=== PATIENT | male | born 1955 | race African-American/Black ===

== ENCOUNTER 2020-11-21 15:53 | Emergency (ER) | payer MEDICARE, MEDICAID, SELFPAY ==
--- NOTE | ~2020-11-21 | CT_ITS ---
EXAMINATION: CTA chest PE protocol EXAM DATE: 11/21/2020 17:28 INDICATION: Right-sided chest pain, elevated D-dimer. TECHNIQUE: Spiral CTA of the chest (pulmonary arteries) was performed with 100 cc Omnipaque 350 intr avenous contrast injection. Images were acquired during the pulmonary arterial phase. Coronal maxi mum intensity projection 3D-reconstructions were created by the technologist on dedicated workstation . Axial, coronal and sagittal reformatted images were reviewed. The dose-length product (DLP) for t his examination was 495.54 mGy-cm. The exposure was tailored according to patient size (auto mA exp osure control), and iterative reconstruction (ASIR) was used as additional dose reduction technique. Comparison is made to prior examination from 01/06/2017. FINDINGS: There are no pulmonary emboli in the 1st through 3rd order (central and interlobar) pulmon sabino arteries. Some loss of attenuation in the segmental pulmonary arteries due to respiratory motion , but no intraluminal filling defects suspected. No thoracic aortic dissection. There is a 6 mm no dule best seen on coronal sequence in the right middle lobe just below the minor fissure, indetermina te. This was not present on prior study. There is mild to moderate emphysema. Some scattered regions of bibasilar subsegmental atelectasis. There are no pleural or pericardial effusions. Tracheobronc hial tree is patent. There is no mediastinal, hilar or axillary lymphadenopathy. There is no pneu mothorax. Heart normal in size. There is mild coronary arterial calcification, arterial sclerosis . Upper abdomen is unremarkable. There is thoracic spondylosis without osteoblastic or osteolytic lesions identified. IMPRESSION: 1. Small right middle lobe nodule, indeterminate. Recommend 3 month follow-up chest CT. 2. Scattered linear basilar atelectasis. 3. Mild to moderate emphysema. 4. No acute findings.. Reviewed, dictated and finalized at location A.
[2020-11-21 15:55] VITALS: BP 138/98; PULSE 96; RESP 16; TEMP 36.9; O2SAT 97
--- NOTE | 2020-11-21 15:57 | ECG_ITS ---
Measurements Intervals [place] Rate: 96 P: 62 RI: 181 QRS: 123 QRSD: 93 T: 50 QT: 333 QTc: 421 Interpretive Statements SINUS RHYTHM RIGHT AXIS DEVIATION BORDERLINE R WAVE PROGRESSION, ANTERIOR LEADS MINIMAL Q WAVES- INFERIOR LEADS ST ELEVATION IN ANTEROLAT/HIGH LAT LEADS- PROBABLY EARLY REPOLARIZATION ABNORMALITY BORDERLINE ECG Electronically Signed On 11-21-2020 19:05:27 CDT by Vishal Cardona D.O.
--- NOTE | 2020-11-21 16:07 | ED.CHESTPAIN ---
HPI - Chest Pain General Chief Complaint: Extremity Problem,Nontraumatic Stated Complaint: R Shoulder Pain Time Seen by Provider: 11/21/20 16:07 Source: patient Mode of arrival: ambulatory Limitations: no limitations History of Present Illness HPI narrative: Patient is a 65-year-old male complaining of right-sided chest pain and right shoulder pain x1 week. Patient's right shoulder pain is a 6 out of 10, worse with movement. Patient's chest pain is right-sided, worse with palpation and movement. Patient denies any shortness of breath, abdominal pain, nausea, vomiting, diaphoresis, fever or chills. Patient denies any injury to the area. Related Data Allergies Allergy/AdvReac Type Severity Reaction Status Date / Time No Known Allergies Allergy Verified 08/03/16 17:00 Review of Systems Review of Systems: All systems reviewed & are unremarkable except as noted in HPI and below Constitutional: Constitutional: Denies body ache(s), Denies chills, Denies excessive sweating, Denies fatigue, Denies fever(s), Denies headache(s), Denies lethargy, Denies malaise, Denies weakness and Denies weight loss Eyes: Eyes: Denies blurry vision, Denies change in vision and Denies loss of vision ENT: Denies dizziness, Denies ear discharge, Denies headache(s), Denies lip swelling, Denies epistaxis, Denies nasal congestion, Denies neck pain, Denies throat swelling and Denies tongue swelling Cardiovascular: Cardiovascular: Denies diaphoresis, Denies rapid heart rate, Denies edema, Denies irregular heart rhythm, Denies lightheadedness, Denies palpitations, Denies dyspnea and Denies dyspnea on exertion Respiratory: Respiratory: Denies chest congestion, Denies cough, Denies hemoptysis, Denies dyspnea and Denies dyspnea on exertion Gastrointestinal: Gastrointestinal: Denies abdominal pain, Denies melena, Denies hematochezia, Denies diarrhea, Denies nausea, Denies vomiting and Denies hematemesis Musculoskeletal: Musculoskeletal: Denies abnormal gait, Denies deformity, Denies joint swelling, Denies limited range of motion, Denies neck pain and Denies numbness Neurologic: Denies Abnormal speech present, Denies abnormal gait, Denies confusion, Denies dizziness, Denies headache(s), Denies focal weakness, Denies loss of vision, Denies numbness, Denies Other visual disturbances, Denies Sensory deficit (Neuro) and Denies weakness Psychiatric: Psychiatric: Denies confusion, Denies depression, Denies auditory hallucinations, Denies homicidal ideation and Denies suicidal ideation Endocrine: Endocrine: Denies cold intolerance, Denies excessive sweating, Denies fatigue, Denies heat intolerance and Denies palpitations Hematologic/Lymphatic: Hematologic/Lymphatic: Denies easy bleeding and Denies easy bruising Allergic/Immunologic: Allergic/Immunologic: Denies lip swelling, Denies throat swelling and Denies tongue swelling Exam Const: General: cooperative, healthy appearing, comfortable, no acute distress, well developed, alert and awake; No confusion Orientation/consciousness: oriented to person, oriented to place, oriented to time, patient oriented x3 and No confusion Limitations: no limitations HENMT: Head: normal to inspection, normocephalic and atraumatic Ears: hearing grossly normal bilaterally, TM normal on the right and TM normal on the left General nose exam: Normal external nose present, Normal nares present and No nasal discharge present Face and sinus: normal facial exam Mouth: Yes Normal oral and palatal mucosa present, Yes lip normal, Yes tongue normal and Yes oropharynx normal Throat: posterior oropharynx normal, tonsils normal and uvula midline Eyes: General: appearance normal, both eyes and all related structures Pupils: Equal, round and reactive pupils present EOM: EOMs intact bilaterally Neck: Neck: normal visual inspection, full ROM, no lymphadenopathy and no meningeal signs Chest: Chest palpation & inspection: normal inspection of the chest Other: Maximus
[2020-11-21 16:25] LABS: Basophils Percent Auto 0.2 % (0.2-1.2); Eosinophils Percent Auto 0.5 % (0-4.4); Hematocrit 46.3 % (42.0-52.0); Hemoglobin 15.2 g/dL (14.0-18.0); Immature Granulocyte Absolute 0.04 K/mm3 (0.00-0.031); Immature Granulocyte Percent A 0.6 % (0-0.5); Lymphocytes Absolute Auto 1.05 K/mm3 (0.9-3.2); Lymphocytes Percent Auto 16.8 % (18.3-44.2); Mean Corpuscular HGB Conc 32.8 g/dl (32-36); Mean Corpuscular Volume 94.3 fl (80-100); Mean Platelet Volume 9.9 fl (7.4-10.4); Monocytes Absolute Auto 0.5 K/mm3 (0.1-0.6); Monocytes Percent Auto 8.5 % (2.6-8.5); Neutrophils Absolute Auto 4.6 K/mm3 (1.3-6.7); Neutrophils Percent Auto 73.4 % (45.5-73.1); Platelet Count Result 172 k/mm3 (150-375); Red Blood Count 4.91 M/mm3 (4.6-6.20); Red Cell Distribution Width 14.4 % (11.5-14.5); White Blood Count 6.2 K/mm3 (4.5-10.0)
[2020-11-21 16:34] LABS: INR 0.9; Prothrombin Time 12.5 Seconds (11.1-14.7)
[2020-11-21 16:35] LABS: Partial Thromboplastin Time 26.7 SECONDS (22.3-36.8)
[2020-11-21 16:38] LABS: Anion Gap 9 mmol/L (8-16); Blood Urea Nitrogen 17 mg/dL (9-20); Calcium 9.7 mg/dL (8.4-10.2); Carbon Dioxide 25 mmol/L (22-30); Chloride 105 mmol/L (98-107); Creatine Kinase 473 U/L (55-170); D Dimer 2.53 ug/mL (<0.48); Estimated CRCL calculation 40 ml/min; Estimated Glomerular Filt Rate 43; Glucose 107 mg/dL (75-110); Potassium 4.4 mmol/L (3.4-5.0); Sodium 139 mmol/L (137-145)
[2020-11-21 16:49] LABS: Troponin I < 0.012 ng/mL (0.000-0.034)
[2020-11-21] MEDS: SODIUM CHLORIDE 0.9% IV 1,000 ML 999 ML IV CONT (18:56)
[2020-11-21 19:57] VITALS: BP 139/84; PULSE 89; RESP 16; O2SAT 98
--- NOTE | 2020-11-29 18:56 | PC.NURSE ---
1000ml of fluids infused. Infusion finished at 1999 on 11/21/20
== END 2020-11-21 19:59 | disposition home or self-care (01) ==
PROVIDERS: Emergency Provider Emergency Medicine
DX: R07.89 Other chest pain (principal); M25.511 Pain in right shoulder; R94.31 Abnormal electrocardiogram [ECG] [EKG]
CPT/HCPCS: 36415; 71275; 80048; 82550; 84484; 85025; 85380; 85610; 85730; 93005; 96360; 99284; J7030; Q9967

== ENCOUNTER 2021-04-21 08:16 | Emergency (ER) | payer OTHER, SELFPAY ==
--- NOTE | ~2021-04-21 | XR_ITS ---
XR chest 1V portable 04/21/2021 08:50 Indication: Cough Procedure: AP portable chest Comparison: 09/16/2016 Findings: There is bilateral perihilar atelectasis. No focal pneumonia, edema, pleural effusion or pn eumothorax. No acute osseous abnormality. Impression: 1: Bilateral perihilar atelectasis. Reviewed, dictated and finalized at location B. PROVIDER RELATIONS Impression: 1: Bilateral perihilar atelectasis.
[2021-04-21 08:21] VITALS: BP 165/101; PULSE 88; RESP 19; TEMP 36.4; O2SAT 96
[2021-04-21 08:26] VITALS: O2SAT 99
[2021-04-21 08:31] VITALS: BP 150/105; PULSE 83; RESP 16; O2SAT 95
--- NOTE | 2021-04-21 08:34 | ED.URI ---
HPI - URI/Sore Throat General Chief Complaint: Upper Respiratory Infection Stated Complaint: Cough/congestion Time Seen by Provider: 04/21/21 08:33 Source: patient History of Present Illness HPI Narrative: Patient presents with dry cough, unable to spit anything up, chills, hot and cold feeling, and nasal congestion,. Patient not been vaccinated for COVID-19, denies any fever, headache, body aches, chest pain or shortness of breath. Patient denies exposure to anybody known to have COVID-19 Related Data Allergies Allergy/AdvReac Type Severity Reaction Status Date / Time No Known Allergies Allergy Verified 08/03/16 17:00 Review of Systems Review of Systems: CONSTITUTIONAL: Denies fever, chills, or sweats. EYES: Denies visual changes, redness, or discharge. ENT: Denies rhinorrhea, congestion, sore throat, or otalgia. CARDIOVASCULAR: Denies chest pain, palpitations, or edema. RESPIRATORY: Denies cough or dyspnea. GASTROINTESTINAL: Denies abdominal pain, nausea, vomiting, or diarrhea. GENITOURINARY: Denies dysuria or hematuria. SKIN: Denies rash or itching. MUSCULOSKELETAL: Denies back pain, joint pain, or myalgia. NEUROLOGIC: Denies headache, numbness, or weakness. PSYCHIATRIC: Denies anxiety or depression. Exam Narrative: General appearance: Well-developed, well-nourished Skin: Normal color Head: Normocephalic, nontraumatic Eyes: Clear conjunctiva ENT: Oropharynx normal, ears normal, nose normal Neck: Supple, nontender Chest and respiratory: Airway patent, no respiratory distress, no accessory muscle use Heart: Regular rate/rhythm Abdomen: Soft, nontender, no organomegaly, quiet bowel sounds Vascular: Normal peripheral pulses, normal capillary refill. Musculoskeletal: Normal range of motion, nontender back Neurologic: Alert and oriented ?3, B [employer] is normal as tested, no gross motor deficit Course Course Emergency Course: Stable Vital Signs Vital signs: Vital Signs Temperature 36.4 C 04/21/21 08:21 Pulse Rate 88 04/21/21 08:21 Respiratory Rate 19 04/21/21 08:21 Blood Pressure 165/101 H 04/21/21 08:21 Pulse Oximetry 96 04/21/21 08:21 Temperature 36.4 C 04/21/21 08:21 Pulse Rate 88 04/21/21 08:21 Respiratory Rate 19 04/21/21 08:21 Blood Pressure 165/101 H 04/21/21 08:21 Pulse Oximetry 99 04/21/21 08:26 MDM - URI/Sore Throat MDM Narrative Medical decision making narrative: Upper respiratory viral infection is my concern. Covid swab ordered Differential Diagnosis Differential diagnosis: Likely upper respiratory infection Imaging Data Radiologist's impression: Impressions Chest X-Ray 04/21/21 08:54 Impression: 1: Bilateral perihilar atelectasis. Critical Care Time Critical Care Time Critical Care Time: No Discharge Plan Discharge Clinical Impression: Upper respiratory infection Qualifiers: URI type: unspecified viral URI Qualified Code(s): J06.9 - Acute upper respiratory infection, unspecified Patient Disposition: Home, Self-Care Condition: Stable Instructions: Antibiotic Form Additional Instructions: Return if symptoms are worsening , call your family physician for appointment, take Tylenol as as needed for aches and pain, continue home medications., Remain isolated at home until he get the Covid test result. Take Tylenol, ibuprofen as needed, encourage fluid intake, Prescriptions: New benzonatate 200 mg capsule 200 mg PO TID Qty: 30 RF: 0 ipratropium bromide 42 mcg (0.06 %) spray,non-aerosol 2 spray intranasal QID Qty: 15 RF: 0 Follow-up/Referrals: Wilder Escalona MD [Physician] - UNKNOWN,DOCTOR [Primary Care Provider] -
[2021-04-21 08:45] VITALS: PULSE 78; RESP 15; O2SAT 94
[2021-04-21 20:05] LABS: SARS-CoV-2 RNA PCR Positive
== END 2021-04-21 09:12 | disposition home or self-care (01) ==
PROVIDERS: Emergency Provider Emergency Medicine
DX: U07.1 COVID-19 (principal); J06.9 Acute upper respiratory infection, unspecified
CPT/HCPCS: 71045; 99283; C9803; U0003; U0005

== ENCOUNTER 2021-04-28 01:43 | Inpatient (IN) | payer OTHER, SELFPAY ==
[2021-04-28] VITALS (48 sets, daily range): BP systolic 102–145; BP diastolic 59–94; PULSE 76–93; RESP 17–35; TEMP 36.3–37.1; O2SAT 45–100; BMI 26.0; BMI 26.4
--- NOTE | ~2021-04-28 | XR_ITS ---
EXAMINATION: XR chest 1V portable INDICATION: Shortness of breath TECHNIQUE: Portable AP chest at 1538 hours COMPARISON: 05/14/2021 FINDINGS: A right upper extremity PICC ends with its tip in the distal superior vena cava. Interstiti al and airspace opacities persist throughout all lung zones with slight worsening in the left lung ba se. There is no pleural effusion or pneumothorax. The heart size is normal. IMPRESSION: 1. Diffuse lung disease with slight worsening in the left lung base, consistent with pneumonia/or pul monary edema. Reviewed, dictated and finalized at location F. OWNER OPERATOR IMPRESSION: 1. Diffuse lung disease with slight worsening in the left lung base, consistent with pneumonia/or pulmonary edema.
--- NOTE | ~2021-04-28 | US_ITS ---
EXAMINATION: US abdomen limited EXAM DATE: 05/20/2021 08:36 INDICATION: Transaminitis, hypoalbuminemia, LE swelling Transaminitis. TECHNIQUE: Multiple grayscale and Doppler images of the abdomen right upper quadrant were obtained (b y a technologist who performed the scan) and subsequently reviewed. There is no prior study for lucy means. FINDINGS: The pancreatic head and body are normal in appearance. The pancreatic tail is not visualized. The l iver has normal echogenicity and contour. There are no focal liver lesions identified. There is no evidence of intrahepatic biliary duct dilation. Portal venous flow was seen in the hepatopedal, nor mal direction and has normal Doppler waveform. No right-sided hydronephrosis. Common bile duct measures 3 mm, which is normal. The gallbladder wall is normal in thickness, with ex pected amount of distention. No sonographic evidence of pericholecystic fluid. There is no cholelit hiases. Technologist performing exam reports patient did not demonstrate sonographic Moeller's sign. Please note that this sign is less reliable in patients who have received pain medication. IMPRESSION: 1. Unremarkable abdominal ultrasound exam. Reviewed, dictated and finalized at location A. LING BOX PERSON
--- NOTE | ~2021-04-28 | US_ITS ---
EXAMINATION: US venous doppler [facility] DATE: 04/30/2021 11:25 INDICATION: COVID with worsening dyspnea TECHNIQUE: Grayscale ultrasound images without and with compression and Doppler ultrasound images of the bilateral lower extremity veins were obtained. COMPARISON: None. FINDINGS: The visualized portions of right common femoral vein, profunda (deep) femoral vein, femoral vein, pop liteal vein, posterior tibial veins, peroneal veins, gastrocnemius vein and greater saphenous vein ou tflow are patent. The visualized portions of left common femoral vein, profunda femoral vein, femoral vein, popliteal v ein, posterior tibial veins, peroneal veins, gastrocnemius vein and greater saphenous vein outflow ar e patent. IMPRESSION: 1. No deep venous thrombosis in either lower limb. Reviewed, dictated and finalized at location B. [employer]
--- NOTE | ~2021-04-28 | US_ITS ---
EXAMINATION: US venous doppler [facility] DATE: 05/15/2021 14:53 INDICATION: Lower limb edema. TECHNIQUE: Grayscale ultrasound images without and with compression and Doppler ultrasound images of the bilateral lower extremity veins were obtained. COMPARISON: Ultrasound 04/30/2021 FINDINGS: The visualized portions of right common femoral vein, profunda (deep) femoral vein, femoral vein, pop liteal vein, peroneal veins, posterior tibial veins, and greater saphenous vein outflow are patent. The visualized portions of left common femoral vein, profunda femoral vein, femoral vein, popliteal v ein, peroneal veins, posterior tibial veins, and greater saphenous vein outflow are patent. IMPRESSION: 1. No deep venous thrombosis. Reviewed, dictated and finalized at location A. ER/WAITRESS ROOM SERVICE
--- NOTE | ~2021-04-28 | XR_ITS ---
EXAMINATION: XR chest 1V portable INDICATION: Shortness of breath TECHNIQUE: Portable AP chest at 0526 hours COMPARISON: 04/21/2021 FINDINGS: There are diffuse opacities throughout all lung zones. Lucencies in the upper lung zones ar e consistent with emphysema. There is no pleural effusion or pneumothorax. The cardiomediastinal silh ouette is normal. IMPRESSION: 1. Diffuse opacities throughout all lung zones, likely COVID 19 pneumonia superimposed on a backgroun d of emphysema. Reviewed, dictated and finalized at location A. CHER KRAFT PULP IMPRESSION: 1. Diffuse opacities throughout all lung zones, likely COVID 19 pneumonia super imposed on a background of emphysema.
--- NOTE | ~2021-04-28 | CT_ITS ---
EXAMINATION: CTA chest PE protocol DATE: 04/28/2021 03:39 INDICATION: Dyspnea. COVID-19 pneumonia. TECHNIQUE: Computed tomography angiography (CTA) of the chest was performed with 100 mL Omnipaque-350 intravenous contrast timed to evaluate the pulmonary arteries. Coronal maximum intensity projection 3D-reconstructions were created by the technologist. Automated exposure control and iterative reconst ruction technique were employed. The dose-length product was 502.11 mGy-cm. COMPARISON: Chest CT 11/21/2020, chest single view 04/21/2021 FINDINGS: There is severe emphysema. There is widespread septal thickening in the lungs. There are ai rspace opacities in the lower lobes and right middle lobe. There are trace pleural effusions. The hea rt size is normal. No pericardial effusion. There are coronary artery calcifications. There is no emb olus in main pulmonary artery or left or right main pulmonary arteries. There is severe thoracic spon dylosis. IMPRESSION: 1. No pulmonary embolus in the main pulmonary artery or left or right main pulmonary arteries. Sensit ivity is severely decreased in the more peripheral pulmonary arteries due to motion artifact and subo ptimal contrast opacification. 2. Worsened diffuse lung disease, consistent with COVID-19 pneumonia superimposed on severe emphysema . Reviewed, dictated and finalized at location A. H CUTTER IMPRESSION: 1. No pulmonary embolus in the main pulmonary artery or left or right main pulm onary arteries. Sensitivity is severely decreased in the more peripheral pulmon sabino arteries due to motion artifact and suboptimal contrast opacification. 2. Worsened diffuse lung disease, consistent with COVID-19 pneumonia superimpos ed on severe emphysema.
--- NOTE | ~2021-04-28 | XR_ITS ---
EXAMINATION: XR chest 1V portable DATE: 05/14/2021 06:46 INDICATION: Dyspnea. COVID-19 04/21/21. HIV. TECHNIQUE: A single frontal view of the chest was obtained on 2 radiographs. COMPARISON: Chest single view 05/08/2021, chest CT 04/28/2021 FINDINGS: The lungs are hyperexpanded with lucencies, consistent with emphysema. There are airspace a nd interstitial opacities throughout the lungs bilaterally. No pleural effusion or pneumothorax. The heart size is normal. A right upper extremity peripherally inserted central venous catheter (PICC) is seen with tip in the superior vena cava. IMPRESSION: 1. Diffuse lung disease with worsening in the upper lobes, consistent with pneumonia superimposed on severe emphysema. Some component of mild pulmonary edema cannot be excluded. Reviewed, dictated and finalized at location A. ET CHECKER IMPRESSION: 1. Diffuse lung disease with worsening in the upper lobes, consistent with pneu monia superimposed on severe emphysema. Some component of mild pulmonary edema cannot be excluded.
--- NOTE | 2021-04-28 01:47 | ECG_ITS ---
Measurements Intervals [place] Rate: 83 P: 46 [place]: 148 QRS: 90 QRSD: 106 T: 46 QT: 391 QTc: 460 Interpretive Statements SINUS RHYTHM POSSIBLE LEFT ATRIAL ENLARGEMENT BASELINE ARTIFACT- I, II, III, AVR, AVL, AVF, V1-V6 BORDERLINE ECG Electronically Signed On 04-28-2021 5:40:41 LUBRICATION SUPERVISOR by Vishal Cardona D.O.
[2021-04-28] MEDS: methylPREDNISolone SOD SUCC 125 MG VIAL IV PUSH (02:03)
[2021-04-28] MEDS: SODIUM CHLORIDE 0.9% IV 500 ML 999 ML IV CONT (02:03)
[2021-04-28 02:10] LABS: Base Excess ABG -2.7 mEq/l (+/-2.0); Fractional Inspired Oxygen 100 %; HCO3 ABG 20.9 mEq/l (22.0-26.0); Oxygen Content ABG 16.2 %vol (16.0-22.0); PCO2 ABG 33.3 mmHg (35.0-45.0); PO2 FiO2 Ratio Arterial Blood 0.43 %; Total Hemoglobin 15.4 g/dL (12.0-18.0); pH ABG 7.416 (7.350-7.450)
[2021-04-28 02:11] LABS: Oxygen Saturation ABG 79.8 % (95.0-100.0); PO2 ABG 42.7 mmHg (80.0-100.0)
[2021-04-28 02:12] LABS: Device NON-REBREATHER MASK; Modified Allen's Test Pass; Oxyhemoglobin 74.9 % THb (90.0-100.0); Site Drawn LEFT RADIAL
[2021-04-28 02:17] LABS: Basophils Percent Auto 0.1 % (0.2-1.2); Hematocrit 44.1 % (42.0-52.0); Hemoglobin 15.2 g/dL (14.0-18.0); Immature Granulocyte Absolute 0.07 K/mm3 (0.00-0.031); Lymphocytes Absolute Auto 0.91 K/mm3 (0.9-3.2); Lymphocytes Percent Auto 13.5 % (18.3-44.2); Mean Corpuscular HGB Conc 34.5 g/dl (32-36); Mean Corpuscular Hemoglobin 31.3 pg (26-34); Mean Corpuscular Volume 90.9 fl (80-100); Mean Platelet Volume 10.3 fl (7.4-10.4); Monocytes Absolute Auto 0.3 K/mm3 (0.1-0.6); Monocytes Percent Auto 4.8 % (2.6-8.5); Neutrophils Absolute Auto 5.4 K/mm3 (1.3-6.7); Neutrophils Percent Auto 80.6 % (45.5-73.1); Platelet Count Result 198 k/mm3 (150-375); Red Blood Count 4.85 M/mm3 (4.6-6.20); Red Cell Distribution Width 13.8 % (11.5-14.5); White Blood Count 6.7 K/mm3 (4.5-10.0)
[2021-04-28] MEDS: IPRATROPIUM BR 0.02% INH SOLN 0.5 MG/2.5 ML VIAL 1.5 MG INHALATION (02:45)
[2021-04-28] MEDS: ALBUTEROL SULFATE NEB 2.5 MG/0.5 ML INH 15 MG INHALATION (02:45)
[2021-04-28 02:49] LABS: Alanine Aminotransferase 124 U/L (4-50); Albumin Level 4.2 g/dL (3.5-5.1); Alkaline Phosphatase 97 U/L (38-126); Anion Gap 13 mmol/L (8-16); Aspartate Amino Transferase 128 U/L (17-59); Bilirubin,Total 0.7 mg/dL (0.2-1.3); Blood Urea Nitrogen 22 mg/dL (9-20); Carbon Dioxide 25 mmol/L (22-30); Chloride 92 mmol/L (98-107); Estimated CRCL calculation 43 ml/min; Estimated Glomerular Filt Rate 46; Glucose 171 mg/dL (65-110); Potassium 3.5 mmol/L (3.4-5.0); Sodium 130 mmol/L (137-145)
--- NOTE | 2021-04-28 03:37 | PC.NURSE ---
pt states unable to provide urine sample at this time.
--- NOTE | 2021-04-28 04:25 | PCRCNOTE ---
Started pt on high flow therapy with an ARVO. Pt at the time is wearing Large nasal prongs at 60L 90%. Pt is currently sating 90-91%. Pt states he has COPD and thats his normal numbers. Pt states he also has COVID and has been short of breath for a while now. Pt stated that they are starting to feel better Short of breath daniel and can finally catch their breath. Will continue to monitor pt and titrate O2 as needed.
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
[2021-04-28 06:41] LABS: INR 0.9; Prothrombin Time 12.4 Seconds (11.1-14.7)
[2021-04-28 06:43] LABS: D Dimer 2.01 ug/mL (<0.48)
[2021-04-28] MEDS: ENOXAPARIN 100 MG/ML SYRINGE 93 MG SUB-Q ×2 (07:43→21:32)
[2021-04-28] MEDS: DEXAMETHASONE 2 MG TABLET 6 MG PO (07:45)
[2021-04-28] MEDS: REMDESIVIR 200 MG/NS 250 ML 200 MG/250 ML BAG 250 MG IVPB (07:46)
[2021-04-28 08:25] LABS: Add Urine Microscopic? YES; Appearance Urine Cloudy (Clear); Bacteria Urine Trace /hpf; Bilirubin Urine Negative (Negative); Blood Urine 3+ (Negative); Color Urine Yellow (Yellow); Glucose Urine UA Negative (Negative); Ketones Urine Negative (Negative); Leukocyte Esterase Ur Negative LEU/UL (Negative); Mucus Urine Rare /lpf; Nitrate Urine Negative (Negative); Protein Urine 1+ mg/dL (Negative); RBC Urine >75 /hpf (0-2)
[2021-04-28 08:33] LABS: Specific Grav Ur 1.049 (1.001-1.035)
--- NOTE | 2021-04-28 08:46 | PC.NURSE ---
SPOKE WITH BRIANNA Lake HOSPITALIST REGARDING PT'S O2 SATS. SHE REQUESTED THAT WE CALL RT TO SEE IF THEY CAN TITRATE HIS O2 TO A HIGHER LEVEL AND THAT SHE WOULD BE DOWN TO SEE HIM GENEVIEVE.
[2021-04-28] MEDS: ALBUTEROL SULFATE (*SP) AEROSOL 1 PUFF 4 PUFF INHALATION ×3 (09:46→20:40)
[2021-04-28] MEDS: ALBUTEROL SULFATE (*SP) INHALER 1 PUFF (09:48)
--- NOTE | 2021-04-28 11:22 | PM.IMPN ---
Progress Note: A&P Assessment and Plan (1) Acute respiratory failure with hypoxia: Code(s): J96.01 - Acute respiratory failure with hypoxia Status: Acute Assessment and Plan: Secondary to COVID-19 pneumonia. PE less likely based on clinical picture, however unable to be ruled out based on nondiagnostic CTA with poor contrast bolus timing. D-dimer is elevated at 2, which could also be explained by acute illness with COVID-19. Wells score for PE is 0. Continue supplemental oxygen. He is currently requiring 60 L high-flow oxygen with Airvo as well as 15 L non-rebreather. O2 sats remaining stable around 90-94%, infrequent drops to 88% or above with talking. Discussed with patient that if O2 sats not able to be maintained with current regimen, will need to transition to BiPAP and then next step would be intubation. He is agreeable to intubation should this become required. At this time he is on therapeutic Lovenox dosing as PE unable to be ruled out. Would consider repeat CTA in 24-48 hours although PE is less likely. Will hold off at this time given patient's CKD with contrast exposure. (2) Pneumonia due to COVID-19 virus: Code(s): U07.1 - COVID-19; J12.82 - Pneumonia due to coronavirus disease 2019 Status: Acute Assessment and Plan: Patient had COVID exposure 04/17/2021. Positive test at this facility 04/21/2021. Managing symptoms at home with supplemental oxygen up to 3 L, but O2 sats declined to the 50% range and had difficulty with ambulation, therefore presented for evaluation. CTA shows worsened diffuse lung disease consistent with COVID 19 pneumonia. Continue dexamethasone and remdesivir. First dose 04/28/2021. ALT is elevated, though still acceptable range for continuation of remdesivir. Monitor closely Patient would be a candidate for Baricitinib given his increased O2 demand. However, discussed with infectious disease specialist, Dr. Beard and given the patient's detectable HIV viral load, Baricitinib is not recommended. Supportive care to include bronchodilators, expectorants, antipyretics, incentive spirometry Supplemental O2. Continue with Airvo as described above. Trend acute phase reactant Continue isolation precautions (3) COPD (chronic obstructive pulmonary disease): Qualifiers: COPD type: COPD with acute lower respiratory infection Qualified Code(s): J44.0 - Chronic obstructive pulmonary disease with (acute) lower respiratory infection Code(s): J44.9 - Chronic obstructive pulmonary disease, unspecified Status: Acute Assessment and Plan: Severe emphysema noted on CTA. Unfortunately, underlying COPD puts him at risk from her severe illness related to COVID-19. No wheezing on exam today, not in acute exacerbation Continue with albuterol MDI q.6 hours scheduled (4) Transaminitis: Code(s): R74.01 - Elevation of levels of liver transaminase levels Status: Acute Assessment and Plan: Likely related to acute viral illness vs chronic hepatitis Continue to monitor labs daily. Close monitoring with remdesivir therapy. (5) HIV (human immunodeficiency virus infection): Code(s): B20 - Human immunodeficiency virus [HIV] disease Status: Inactive Assessment and Plan: Patient reports intermittent compliance with his antiviral regimen. Follows with his PCP, Dr. Munroe, who manages. Reports his last viral load test was 90 days ago and did have detectable viral load. Continue his anti-retroviral therapy from home (6) Elevated d-dimer: Code(s): R79.89 - Other specified abnormal findings of blood chemistry Status: Acute Assessment and Plan: D-dimer 2.01. As noted above, likely related to acute illness with COVID-19. Please see above (7) Bursitis of elbow: Code(s): M70.30 - Other bursitis of elbow, unspecified elbow Status: Acute Assessment and Plan: Chr
--- NOTE | 2021-04-28 18:33 | ADMIMU ---
This patient, Thompson Salcedo, was admitted to IMU status, and placed in Intensive Care Unit-6. Patient/family oriented to hospital policies and general routines including ID bracelet, bed and alarms, visiting hours, pain management, procedures, bathroom and other care routines, personal items, smoking policy, room service/diet, and visiting hours. Valuables list has been completed. Information on how to activate the Rapid Response Team has been discussed. Patient/Family are encouraged to report perceived risks to care and to ask questions if they do not understand what they are told or what they should do.
[2021-04-28] MEDS: guaiFENesin 12 HR 600 MG TABCR PO (21:32)
[2021-04-29] VITALS (17 sets, daily range): BP systolic 99–127; BP diastolic 66–93; PULSE 62–89; RESP 17–27; TEMP 36.2–36.9; O2SAT 91–100
[2021-04-29] MEDS: ALBUTEROL SULFATE (*SP) AEROSOL 1 PUFF 4 PUFF INHALATION ×4 (03:21→21:59)
[2021-04-29 05:40] LABS: Hematocrit 40.1 % (42.0-52.0); Hemoglobin 14.4 g/dL (14.0-18.0); Mean Corpuscular HGB Conc 35.9 g/dl (32-36); Mean Corpuscular Hemoglobin 31.6 pg (26-34); Mean Corpuscular Volume 87.9 fl (80-100); Mean Platelet Volume 10.1 fl (7.4-10.4); Platelet Count Result 213 k/mm3 (150-375); Red Blood Count 4.56 M/mm3 (4.6-6.20); Red Cell Distribution Width 13.7 % (11.5-14.5); White Blood Count 8.9 K/mm3 (4.5-10.0)
[2021-04-29 05:53] LABS: Prothrombin Time 12.7 Seconds (11.1-14.7)
[2021-04-29 06:13] LABS: Alanine Aminotransferase 141 U/L (4-50); Albumin Level 3.7 g/dL (3.5-5.1); Alkaline Phosphatase 82 U/L (38-126); Anion Gap 9 mmol/L (8-16); Aspartate Amino Transferase 132 U/L (17-59); Bilirubin,Total 0.4 mg/dL (0.2-1.3); Blood Urea Nitrogen 32 mg/dL (9-20); CRP 18.2 mg/dL (<1.0); Calcium 8.7 mg/dL (8.4-10.2); Carbon Dioxide 26 mmol/L (22-30); Chloride 96 mmol/L (98-107); Estimated CRCL calculation 43 ml/min; Estimated Glomerular Filt Rate 46; Glucose 121 mg/dL (65-110); Potassium 4.3 mmol/L (3.4-5.0); Sodium 131 mmol/L (137-145)
[2021-04-29] MEDS: amLODIPine BESYLATE 5 MG TABLET 10 MG PO (09:39)
[2021-04-29] MEDS: ENOXAPARIN 100 MG/ML SYRINGE 93 MG SUB-Q ×2 (09:39→22:10)
[2021-04-29] MEDS: guaiFENesin 12 HR 600 MG TABCR PO ×2 (09:40→22:11)
[2021-04-29] MEDS: REMDESIVIR 100 MG/NS 250 ML 100 MG/250 ML BAG 250 MG IVPB (10:01)
[2021-04-29] MEDS: DEXAMETHASONE 2 MG TABLET 6 MG PO (10:26)
--- NOTE | 2021-04-29 17:01 | PM.IMPN ---
Progress Note: A&P Assessment and Plan (1) Acute respiratory failure with hypoxia: Code(s): J96.01 - Acute respiratory failure with hypoxia Status: Acute Assessment and Plan: Secondary to COVID-19 pneumonia. PE less likely based on clinical picture, however unable to be ruled out based on nondiagnostic CTA with poor contrast bolus timing. D-dimer is elevated at 2, which can be explained by acute illness with COVID-19. Wells score for PE is 0. Continue supplemental oxygen. He is currently requiring 55 L high-flow oxygen with Airvo as well as 15 L non-rebreather, which he is using as needed. O2 sats remaining stable Discussed with patient that if O2 sats not able to be maintained with current regimen, will need to transition to BiPAP and then next step would be intubation. He is agreeable to intubation should this become required. At this time he is on therapeutic Lovenox dosing as PE unable to be ruled out. Initially plan for repeat CTA, though not able to be performed at this time as he is not able to come off Airvo long enough to complete the procedure. There is very low pretest probability. As discussed above, PE seems unlikely. He has had no significant change in his condition even with therapeutic Lovenox. Would expect with PE that he would begin to have some improvement, again making COVID-19 the more likely etiology for his acute respiratory failure. Will proceed with bilateral venous Dopplers. If DVT is ruled out, would discontinue therapeutic Lovenox and transition to prophylactic dosing. (2) Pneumonia due to COVID-19 virus: Code(s): U07.1 - COVID-19; J12.82 - Pneumonia due to coronavirus disease 2019 Status: Acute Assessment and Plan: Patient had COVID exposure 04/17/2021. Positive test at this facility 04/21/2021. Managing symptoms at home with supplemental oxygen up to 3 L, but O2 sats declined to the 50% range and had difficulty with ambulation, therefore presented for evaluation. CTA showed worsened diffuse lung disease consistent with COVID 19 pneumonia. Continue dexamethasone and remdesivir. First dose 04/28/2021. ALT is elevated (141), though still acceptable range for continuation of remdesivir. Monitor closely Parasite and him not recommended per Infectious Disease specialist due to detectable HIV viral load Supportive care to include bronchodilators, expectorants, antipyretics, incentive spirometry Supplemental O2. Continue with Airvo as described above. Trend acute phase reactant Continue isolation precautions (3) COPD (chronic obstructive pulmonary disease): Qualifiers: COPD type: COPD with acute lower respiratory infection Qualified Code(s): J44.0 - Chronic obstructive pulmonary disease with (acute) lower respiratory infection Code(s): J44.9 - Chronic obstructive pulmonary disease, unspecified Status: Acute Assessment and Plan: Severe emphysema noted on CTA. Unfortunately, underlying COPD puts him at risk from her severe illness related to COVID-19. No wheezing on exam today, not in acute exacerbation Continue with albuterol MDI q.6 hours scheduled (4) Transaminitis: Code(s): R74.01 - Elevation of levels of liver transaminase levels Status: Acute Assessment and Plan: Likely related to acute viral illness vs chronic hepatitis Continue to monitor labs daily. Close monitoring with remdesivir therapy. (5) Elevated d-dimer: Code(s): R79.89 - Other specified abnormal findings of blood chemistry Status: Acute Assessment and Plan: D-dimer 2.01. As noted above, likely related to acute illness with COVID-19. Please see above Subjective Date/time seen: 04/29/21 17:01 Interval history: Date of service: 04/29/2021 Thompson Salcedo is a 65-year-old male with a history of CKD, COPD, HIV, and hepatitis who is seen in follow-up for COVID-19 pneumonia. He reports he is feeling well to
[2021-04-30] VITALS (16 sets, daily range): BP systolic 106–158; BP diastolic 68–90; PULSE 71–95; RESP 16–29; TEMP 36.3–36.7; O2SAT 91–100
[2021-04-30] MEDS: ALBUTEROL SULFATE (*SP) AEROSOL 1 PUFF 4 PUFF INHALATION ×4 (04:00→21:10)
[2021-04-30 07:29] LABS: Hematocrit 39.4 % (42.0-52.0); Hemoglobin 13.3 g/dL (14.0-18.0); Mean Corpuscular HGB Conc 33.8 g/dl (32-36); Mean Corpuscular Hemoglobin 30.4 pg (26-34); Mean Corpuscular Volume 90.2 fl (80-100); Mean Platelet Volume 9.5 fl (7.4-10.4); Platelet Count Result 241 k/mm3 (150-375); Red Blood Count 4.37 M/mm3 (4.6-6.20); Red Cell Distribution Width 14.4 % (11.5-14.5); White Blood Count 13.2 K/mm3 (4.5-10.0)
[2021-04-30] MEDS: ENOXAPARIN 100 MG/ML SYRINGE 93 MG SUB-Q (07:45)
[2021-04-30] MEDS: guaiFENesin 12 HR 600 MG TABCR PO ×2 (07:46→19:26)
[2021-04-30] MEDS: DEXAMETHASONE 2 MG TABLET 6 MG PO (07:46)
[2021-04-30] MEDS: amLODIPine BESYLATE 5 MG TABLET 10 MG PO (07:46)
[2021-04-30 08:03] LABS: Alanine Aminotransferase 123 U/L (4-50); Albumin Level 3.7 g/dL (3.5-5.1); Alkaline Phosphatase 91 U/L (38-126); Anion Gap 8 mmol/L (8-16); Aspartate Amino Transferase 92 U/L (17-59); Bilirubin,Total 0.4 mg/dL (0.2-1.3); Blood Urea Nitrogen 38 mg/dL (9-20); CRP 8.2 mg/dL (<1.0); Calcium 8.9 mg/dL (8.4-10.2); Carbon Dioxide 27 mmol/L (22-30); Chloride 100 mmol/L (98-107); Estimated CRCL calculation 43 ml/min; Estimated Glomerular Filt Rate 46; Glucose 124 mg/dL (65-110); Potassium 4.5 mmol/L (3.4-5.0); Sodium 135 mmol/L (137-145)
[2021-04-30] MEDS: REMDESIVIR 100 MG/NS 250 ML 100 MG/250 ML BAG 250 MG IVPB (09:57)
[2021-04-30 12:39] LABS: INR 1.1; Prothrombin Time 13.9 Seconds (11.1-14.7)
[2021-04-30] MEDS: CENTRAL LINE FLUSH 10 ML IV PUSH ×2 (13:50→19:26)
--- NOTE | 2021-04-30 14:41 | PM.IMPN ---
Progress Note: A&P Assessment and Plan (1) Acute respiratory failure with hypoxia: Code(s): J96.01 - Acute respiratory failure with hypoxia Status: Acute Assessment and Plan: Secondary to COVID-19 pneumonia. PE unlikely based on clinical picture, however unable to be ruled out based on nondiagnostic CTA with poor contrast bolus timing. D-dimer is elevated at 2, which can be explained by acute illness with COVID-19. Wells score for PE is 0. Continue supplemental oxygen. He is currently requiring 60 L high-flow oxygen with Airvo as well as 15 L non-rebreather. O2 sats remaining stable Discussed with patient that if O2 sats not able to be maintained with current regimen, will need to transition to BiPAP and then next step would be intubation. He is agreeable to intubation should this become required. As above, PE unlikely. Initially planned for repeat CTA but patient unable to come off Airvo long enough to complete the procedure at this time. Very low pretest probability. Bilateral venous Doppler performed today with no evidence of DVT. At this time, will transition Lovenox to prophylactic dosing 40 mg daily has PE is not suspected. (2) Pneumonia due to COVID-19 virus: Code(s): U07.1 - COVID-19; J12.82 - Pneumonia due to coronavirus disease 2019 Status: Acute Assessment and Plan: Patient had COVID exposure 04/17/2021. Positive test at this facility 04/21/2021. Managing symptoms at home with supplemental oxygen up to 3 L, but O2 sats declined to the 50% range and had difficulty with ambulation, therefore presented for evaluation. CTA showed worsened diffuse lung disease consistent with COVID 19 pneumonia. Continue dexamethasone and remdesivir. First dose 04/28/2021. ALT is elevated (123), though still acceptable range for continuation of remdesivir. Monitor closely Baricitinib not recommended per Infectious Disease specialist due to detectable HIV viral load Supportive care to include bronchodilators, expectorants, antipyretics, incentive spirometry Supplemental O2. Continue with Airvo as described above. Trend acute phase reactants Continue isolation precautions (3) COPD (chronic obstructive pulmonary disease): Qualifiers: COPD type: COPD with acute lower respiratory infection Qualified Code(s): J44.0 - Chronic obstructive pulmonary disease with (acute) lower respiratory infection Code(s): J44.9 - Chronic obstructive pulmonary disease, unspecified Status: Acute Assessment and Plan: Severe emphysema noted on CTA. Unfortunately, underlying COPD puts him at risk from more severe illness related to COVID-19. Not in acute exacerbation Continue with albuterol MDI q.6 hours scheduled (4) Transaminitis: Code(s): R74.01 - Elevation of levels of liver transaminase levels Status: Acute Assessment and Plan: Likely related to acute viral illness vs chronic hepatitis Continue to monitor labs daily. Close monitoring with remdesivir therapy. (5) Elevated d-dimer: Code(s): R79.89 - Other specified abnormal findings of blood chemistry Status: Acute Assessment and Plan: D-dimer 2.01. As noted above, likely related to acute illness with COVID-19. Please see above Subjective Date/time seen: 04/30/21 14:41 Interval history: Date of service: 04/30/2021 Thompson Salcedo is a 65-year-old male with a history of CKD, COPD, HIV, and hepatitis who is seen in follow-up for COVID-19 pneumonia. He is doing well today. His shortness of breath is improving. He endorses cough which is worse at night and 1st thing in the morning. He occasionally has clear-white sputum production. Denies chest congestion or sinus congestion. He is tolerating the Airvo with the non-rebreather. He denies chest pain or palpitations. No nausea, vomiting, fever, chills, dizziness, lightheadedness. Denies pain or swelling in his legs. Denies any
[2021-05-01] VITALS (21 sets, daily range): BP systolic 122–137; BP diastolic 71–99; PULSE 67–95; RESP 16–80; TEMP 36.1–36.9; O2SAT 90–99
[2021-05-01] MEDS: ALBUTEROL SULFATE (*SP) AEROSOL 1 PUFF 4 PUFF INHALATION ×4 (03:16→20:48)
[2021-05-01 05:38] LABS: Hematocrit 38.2 % (42.0-52.0); Mean Corpuscular Hemoglobin 31.6 pg (26-34); Mean Corpuscular Volume 92.9 fl (80-100); Mean Platelet Volume 9.4 fl (7.4-10.4); Platelet Count Result 223 k/mm3 (150-375); Red Blood Count 4.11 M/mm3 (4.6-6.20); Red Cell Distribution Width 14.6 % (11.5-14.5); White Blood Count 10.9 K/mm3 (4.5-10.0)
[2021-05-01] MEDS: ALTEPLASE 2 MG VIAL (CATHFLO) IV PUSH (06:42)
[2021-05-01] MEDS: CENTRAL LINE FLUSH 10 ML IV PUSH ×2 (07:06→14:12)
[2021-05-01] MEDS: WATER, STERILE FOR INJECTION 10 ML VIAL XX (07:07)
[2021-05-01] MEDS: ENOXAPARIN 40 MG/0.4 ML SYRINGE SUB-Q (08:08)
[2021-05-01] MEDS: guaiFENesin 12 HR 600 MG TABCR PO ×2 (08:08→22:29)
[2021-05-01] MEDS: DEXAMETHASONE 2 MG TABLET 6 MG PO (08:08)
[2021-05-01] MEDS: amLODIPine BESYLATE 5 MG TABLET 10 MG PO (08:09)
[2021-05-01] MEDS: ALPRAZolam (*CRX) 0.25 MG TABLET PO ×2 (11:24→22:44)
--- NOTE | 2021-05-01 11:51 | PC.NURSE ---
labs hemolyzed three times, called wooden furniture polisher to draw, pending remdisivir administration
--- NOTE | 2021-05-01 12:01 | PM.IMPN ---
Progress Note: A&P Assessment and Plan (1) Acute respiratory failure with hypoxia: Code(s): J96.01 - Acute respiratory failure with hypoxia Status: Acute Assessment and Plan: Secondary to COVID-19 pneumonia. PE unlikely based on clinical picture, however unable to be ruled out based on nondiagnostic CTA with poor contrast bolus timing. D-dimer is elevated at 2, which can be explained by acute illness with COVID-19. Wells score for PE is 0. Continue supplemental oxygen. Currently on Airvo 50 L and 80% FiO2 Discussed with patient that if O2 sats not able to be maintained with current regimen, will need to transition to BiPAP and then next step would be intubation. He is agreeable to intubation should this become required. 04/28/21: CTA: No PE. Initially planned for repeat CTA but patient unable to come off Airvo long enough to complete the procedure at this time. Very low pretest probability. Bilateral venous Doppler performed today with no evidence of DVT. At this time, will transition Lovenox to prophylactic dosing 40 mg daily as PE is not suspected. (2) Pneumonia due to COVID-19 virus: Code(s): U07.1 - COVID-19; J12.82 - Pneumonia due to coronavirus disease 2019 Status: Acute Assessment and Plan: Patient had COVID exposure 04/17/2021. Positive test at this facility 04/21/2021. Managing symptoms at home with supplemental oxygen up to 3 L, but O2 sats declined to the 50% range and had difficulty with ambulation, therefore presented for evaluation. CTA showed worsened diffuse lung disease consistent with COVID 19 pneumonia. Continue dexamethasone and remdesivir. First dose 04/28/2021. ALT is elevated (123), though still acceptable range for continuation of remdesivir. Monitor closely Baricitinib not recommended per Infectious Disease specialist due to detectable HIV viral load Supportive care to include bronchodilators, expectorants, antipyretics, incentive spirometry Supplemental O2. Continue with Airvo as described above. Trend acute phase reactants Continue isolation precautions (3) COPD (chronic obstructive pulmonary disease): Qualifiers: COPD type: COPD with acute lower respiratory infection Qualified Code(s): J44.0 - Chronic obstructive pulmonary disease with (acute) lower respiratory infection Code(s): J44.9 - Chronic obstructive pulmonary disease, unspecified Status: Acute Assessment and Plan: Severe emphysema noted on CTA. Unfortunately, underlying COPD puts him at risk from more severe illness related to COVID-19. Not in acute exacerbation Continue with albuterol MDI q.6 hours scheduled (4) Transaminitis: Code(s): R74.01 - Elevation of levels of liver transaminase levels Status: Acute Assessment and Plan: Likely related to acute viral illness vs chronic hepatitis Continue to monitor labs daily. Close monitoring with remdesivir therapy. (5) Elevated d-dimer: Code(s): R79.89 - Other specified abnormal findings of blood chemistry Status: Acute Assessment and Plan: D-dimer 2.01. As noted above, likely related to acute illness with COVID-19. Please see above Additional Plan D/w pt, will add sleep aid Subjective Date/time seen: 05/01/21 12:01 Interval history: Thompson Salcedo is a 65-year-old male with a history of CKD, COPD, HIV, and hepatitis who is seen in follow-up for COVID-19 pneumonia. 05/01/2021: Patient seen and examined in the ICU for the hospitalist team. Patient states he is doing well, but has not slept in 2 nights. He is also anxious. Requesting for something to sleep at night -sleep aid. Patient states his breathing seems to be improving, has been trying to sleep on his belly. Denies any chest pain, nausea, vomiting, fevers. States his cough has improved. He is tolerating Airvo he is currently on 50 L and 80% FiO2. Urine output has been adequate, positive bowel
[2021-05-01 13:27] LABS: Partial Thromboplastin Time 31.5 SECONDS (22.3-36.8)
[2021-05-01 13:51] LABS: Prothrombin Time 13.4 Seconds (11.1-14.7)
[2021-05-01 15:50] LABS: Alanine Aminotransferase 109 U/L (4-50); Albumin Level 3.5 g/dL (3.5-5.1); Alkaline Phosphatase 78 U/L (38-126); Anion Gap 4 mmol/L (8-16); Aspartate Amino Transferase 72 U/L (17-59); Bilirubin,Total 0.3 mg/dL (0.2-1.3); Blood Urea Nitrogen 38 mg/dL (9-20); CRP 5.1 mg/dL (<1.0); Calcium 8.7 mg/dL (8.4-10.2); Carbon Dioxide 29 mmol/L (22-30); Chloride 101 mmol/L (98-107); Estimated CRCL calculation 51 ml/min; Estimated Glomerular Filt Rate 57; Glucose 123 mg/dL (65-110); Lactate Dehydrogenase 1299 U/L (313-618); Potassium 5.3 mmol/L (3.4-5.0); Sodium 134 mmol/L (137-145)
[2021-05-01] MEDS: REMDESIVIR 100 MG/NS 250 ML 100 MG/250 ML BAG 250 MG IVPB (17:43)
--- NOTE | 2021-05-01 21:17 | PHAR ---
RX [id number] IDENTIFIED TO CONTAIN DRUG NAME: PREZCOBIX INGREDIENTS: COBICISTAT -- 150 MG DARUNAVIR -- 800 MG RELATED DOCUMENTS: DRUGDEX EVALUATIONS - DARUNAVIR/COBICISTAT DIRECTIONS ARE 1 TA DAILY WITH BREAKFAST COLOR: PINK SHAPE: OVAL IMPRINT: 800 , TG , 800 , TG FORM: ORAL TABLET RX [id number] IDENTFIED TO CONTAIN DRUG NAME: TIVICAY INGREDIENTS: DOLUTEGRAVIR SODIUM -- 50 MG RELATED DOCUMENTS: DRUGDEX EVALUATIONS - DOLUTEGRAVIR DIRECTIONS 1 TABLET 2 TIMES A DAY COLOR: YELLOW SHAPE: TRIBE IMPRINT: SV 572 , 50 FORM: ORAL TABLET
[2021-05-01] MEDS: ZOLPIDEM TARTRATE (*CRX) 5 MG TABLET PO (22:44)
[2021-05-02] VITALS (15 sets, daily range): BP systolic 115–149; BP diastolic 73–95; PULSE 73–96; RESP 20–32; TEMP 36.1–37.2; O2SAT 91–100
[2021-05-02] MEDS: ALBUTEROL SULFATE (*SP) AEROSOL 1 PUFF 4 PUFF INHALATION ×3 (02:40→14:06)
[2021-05-02 05:32] LABS: Prothrombin Time 13.5 Seconds (11.1-14.7)
[2021-05-02 06:11] LABS: Alanine Aminotransferase 95 U/L (4-50); Estimated CRCL calculation 63 ml/min; Estimated Glomerular Filt Rate > 60
[2021-05-02] MEDS: guaiFENesin 12 HR 600 MG TABCR PO ×2 (08:20→20:47)
[2021-05-02] MEDS: ENOXAPARIN 40 MG/0.4 ML SYRINGE SUB-Q (08:20)
[2021-05-02] MEDS: DEXAMETHASONE 2 MG TABLET 6 MG PO (08:20)
[2021-05-02] MEDS: amLODIPine BESYLATE 5 MG TABLET 10 MG PO (08:20)
[2021-05-02 10:23] LABS: Hematocrit 40.4 % (42.0-52.0); Hemoglobin 13.2 g/dL (14.0-18.0); Mean Corpuscular HGB Conc 32.7 g/dl (32-36); Mean Corpuscular Hemoglobin 31.4 pg (26-34); Mean Corpuscular Volume 96.2 fl (80-100); Mean Platelet Volume 9.8 fl (7.4-10.4); Platelet Count Result 148 k/mm3 (150-375); Red Cell Distribution Width 17.3 % (11.5-14.5); White Blood Count 10.2 K/mm3 (4.5-10.0)
[2021-05-02 11:35] LABS: Alanine Aminotransferase 89 U/L (4-50); Alkaline Phosphatase 76 U/L (38-126); Anion Gap 5 mmol/L (8-16); Aspartate Amino Transferase 54 U/L (17-59); Bilirubin,Total 0.3 mg/dL (0.2-1.3); Blood Urea Nitrogen 32 mg/dL (9-20); Calcium 8.4 mg/dL (8.4-10.2); Carbon Dioxide 30 mmol/L (22-30); Chloride 101 mmol/L (98-107); Estimated CRCL calculation 68 ml/min; Estimated Glomerular Filt Rate > 60; Glucose 135 mg/dL (65-110); Lactate Dehydrogenase 1238 U/L (313-618); Potassium 4.8 mmol/L (3.4-5.0); Sodium 136 mmol/L (137-145)
[2021-05-02] MEDS: REMDESIVIR 100 MG/NS 250 ML 100 MG/250 ML BAG 250 MG IVPB (13:32)
[2021-05-02] MEDS: CENTRAL LINE FLUSH 10 ML IV PUSH ×2 (15:17→20:47)
--- NOTE | 2021-05-02 16:59 | PM.IMPN ---
Progress Note: A&P Assessment and Plan (1) Acute respiratory failure with hypoxia: Code(s): J96.01 - Acute respiratory failure with hypoxia Status: Acute Assessment and Plan: Secondary to COVID-19 pneumonia. PE unlikely based on clinical picture, CTA reviewed with no evidence of PE in main pulmonary artery or left or right main pulmonary arteries. D-dimer is elevated at 2, which can be explained by acute illness with COVID-19. Wells score for PE is 0. Continue supplemental oxygen. Currently on Airvo 50 L with 15 L nonrebreather as needed Discussed with patient that if O2 sats not able to be maintained with current regimen, will need to transition to BiPAP and then next step would be intubation. He is agreeable to intubation should this become required. (2) Pneumonia due to COVID-19 virus: Code(s): U07.1 - COVID-19; J12.82 - Pneumonia due to coronavirus disease 2018 Status: Acute Assessment and Plan: Patient had COVID exposure 04/17/2021. Positive test at this facility 04/21/2021. Managing symptoms at home with supplemental oxygen up to 3 L, but O2 sats declined to the 50% range and had difficulty with ambulation, therefore presented for evaluation. CTA showed worsened diffuse lung disease consistent with COVID 19 pneumonia. Continue dexamethasone and remdesivir. First dose 04/28/2021. ALT is mildly elevated (89), though still acceptable range for continuation of remdesivir. Monitor closely Baricitinib not recommended per Infectious Disease specialist due to detectable HIV viral load Supportive care to include bronchodilators, expectorants, antipyretics, incentive spirometry Supplemental O2. Continue with Airvo as described above. Trend acute phase reactants Continue isolation precautions (3) COPD (chronic obstructive pulmonary disease): Qualifiers: COPD type: COPD with acute lower respiratory infection Qualified Code(s): J44.0 - Chronic obstructive pulmonary disease with (acute) lower respiratory infection Code(s): J44.9 - Chronic obstructive pulmonary disease, unspecified Status: Acute Assessment and Plan: Severe emphysema noted on CTA. Unfortunately, underlying COPD puts him at risk from more severe illness related to COVID-19. Not in acute exacerbation Continue with albuterol MDI q.6 hours scheduled (4) Transaminitis: Code(s): R74.01 - Elevation of levels of liver transaminase levels Status: Acute Assessment and Plan: Likely related to acute viral illness vs chronic hepatitis Continue to monitor labs daily. Close monitoring with remdesivir therapy. LFTs improving (5) Elevated d-dimer: Code(s): R79.89 - Other specified abnormal findings of blood chemistry Status: Acute Assessment and Plan: D-dimer 2.01. As noted above, likely related to acute illness with COVID-19. Please see above Subjective Date/time seen: 05/02/21 16:59 Interval history: Date of service: 05/02/2021 Thompson Salcedo is a 65-year-old male with a history of CKD, COPD, HIV, and hepatitis who is seen in follow-up for COVID-19 pneumonia. He feels well today. Good spirits. He is still having a cough at nighttime but denies sputum production. Shortness of breath is improving. He is able to get up to the bedside commode without any worsening of symptoms. He is eating drinking well. He is having regular bowel movements and no issues with urination. No nausea, vomiting, fever, or chills. No dizziness or lightheadedness. Review of Systems Review of Systems: All systems reviewed & are unremarkable except as noted in HPI and below Exam Narrative: Mr. Salcedo is a well-nourished, well-appearing 65-year-old male who is sitting in a chair by the bedside. He appears comfortable and is in NARD. Neuro: awake, alert and oriented x4, speech clear, no focal neuro deficits noted HEENMT: normocephalic, atraumatic, EOMI,
[2021-05-02] MEDS: ZOLPIDEM TARTRATE (*CRX) 5 MG TABLET PO (20:50)
[2021-05-02] MEDS: ALPRAZolam (*CRX) 0.25 MG TABLET PO (20:51)
[2021-05-03] VITALS (14 sets, daily range): BP systolic 109–145; BP diastolic 54–105; PULSE 59–106; RESP 20–24; TEMP 36.2–37.2; O2SAT 90–100
--- NOTE | 2021-05-03 01:43 | PCRCNOTE ---
Window of time for administration has passed. See next scheduled administration.
[2021-05-03] MEDS: ALBUTEROL SULFATE (*SP) AEROSOL 1 PUFF 4 PUFF INHALATION ×3 (02:15→15:04)
[2021-05-03] MEDS: CENTRAL LINE FLUSH 10 ML IV PUSH ×3 (06:50→21:43)
[2021-05-03] MEDS: DEXAMETHASONE 2 MG TABLET 6 MG PO (08:32)
[2021-05-03] MEDS: amLODIPine BESYLATE 5 MG TABLET 10 MG PO (08:32)
[2021-05-03] MEDS: guaiFENesin 12 HR 600 MG TABCR PO ×2 (08:32→21:43)
[2021-05-03] MEDS: ENOXAPARIN 40 MG/0.4 ML SYRINGE SUB-Q (08:33)
[2021-05-03 08:58] LABS: Hematocrit 41.8 % (42.0-52.0); Hemoglobin 13.5 g/dL (14.0-18.0); Immature Platelet Fraction Pct 4.5 % (0.9-11.2); Mean Corpuscular HGB Conc 32.3 g/dl (32-36); Mean Corpuscular Hemoglobin 30.8 pg (26-34); Mean Corpuscular Volume 95.4 fl (80-100); Mean Platelet Volume 10.3 fl (7.4-10.4); Platelet Count Result 141 k/mm3 (150-375); Red Blood Count 4.38 M/mm3 (4.6-6.20); Red Cell Distribution Width 15.9 % (11.5-14.5)
[2021-05-03 10:23] LABS: Prothrombin Time 13.4 Seconds (11.1-14.7)
[2021-05-03 10:27] LABS: Alanine Aminotransferase 93 U/L (4-50); Albumin Level 3.5 g/dL (3.5-5.1); Alkaline Phosphatase 80 U/L (38-126); Anion Gap 7 mmol/L (8-16); Aspartate Amino Transferase 48 U/L (17-59); Bilirubin,Total 0.5 mg/dL (0.2-1.3); Blood Urea Nitrogen 30 mg/dL (9-20); CRP 4.6 mg/dL (<1.0); Calcium 8.8 mg/dL (8.4-10.2); Carbon Dioxide 28 mmol/L (22-30); Chloride 100 mmol/L (98-107); Estimated CRCL calculation 63 ml/min; Estimated Glomerular Filt Rate > 60; Glucose 186 mg/dL (65-110); Potassium 5.5 mmol/L (3.4-5.0); Sodium 135 mmol/L (137-145)
[2021-05-03] MEDS: REMDESIVIR 100 MG/NS 250 ML 100 MG/250 ML BAG 250 MG IVPB (12:54)
--- NOTE | 2021-05-03 14:51 | PM.IMPN ---
Progress Note: A&P Assessment and Plan (1) Acute respiratory failure with hypoxia: Code(s): J96.01 - Acute respiratory failure with hypoxia Status: Acute Assessment and Plan: Secondary to COVID-19 pneumonia. PE unlikely based on clinical picture, CTA reviewed with no evidence of PE in main pulmonary artery or left or right main pulmonary arteries. D-dimer is elevated at 2, which can be explained by acute illness with COVID-19. Wells score for PE is 0. Continue supplemental oxygen. He has required up to 60 L/min. Currently on Airvo 45 L with 15 L nonrebreather as needed Discussed with patient that if O2 sats not able to be maintained with current regimen, will need to transition to BiPAP and then next step would be intubation. He is agreeable to intubation should this become required. (2) Pneumonia due to COVID-19 virus: Code(s): U07.1 - COVID-19; J12.82 - Pneumonia due to coronavirus disease 2018 Status: Acute Assessment and Plan: Patient had COVID exposure 04/17/2021. Positive test at this facility 04/21/2021. Managing symptoms at home with supplemental oxygen up to 3 L, but O2 sats declined to the 50% range and had difficulty with ambulation, therefore presented for evaluation. CTA showed worsened diffuse lung disease consistent with COVID 19 pneumonia. Continue dexamethasone and remdesivir. First dose 04/28/2021. Will extend Remdesivir an additional 5 days. ALT is mildly elevated (93), though still acceptable range for continuation of remdesivir. Monitor closely Baricitinib not recommended per Infectious Disease specialist due to detectable HIV viral load Supportive care to include bronchodilators, expectorants, antipyretics, incentive spirometry Supplemental O2. Continue with Airvo as described above. Trend acute phase reactants Continue isolation precautions (3) COPD (chronic obstructive pulmonary disease): Qualifiers: COPD type: COPD with acute lower respiratory infection Qualified Code(s): J44.0 - Chronic obstructive pulmonary disease with (acute) lower respiratory infection Code(s): J44.9 - Chronic obstructive pulmonary disease, unspecified Status: Acute Assessment and Plan: Severe emphysema noted on CTA. Unfortunately, underlying COPD puts him at risk from more severe illness related to COVID-19. Not in acute exacerbation Continue with albuterol MDI q.6 hours scheduled (4) Transaminitis: Code(s): R74.01 - Elevation of levels of liver transaminase levels Status: Acute Assessment and Plan: Likely related to acute viral illness vs chronic hepatitis Continue to monitor labs daily. Close monitoring with remdesivir therapy. LFTs improving (5) Elevated d-dimer: Code(s): R79.89 - Other specified abnormal findings of blood chemistry Status: Acute Assessment and Plan: D-dimer 2.01. As noted above, likely related to acute illness with COVID-19. Please see above (6) Hyperkalemia: Code(s): E87.5 - Hyperkalemia Status: Acute Assessment and Plan: Potassium is mildly elevated at 5.5 today. Etiology for this is not clear. Administer 1 dose Kayexalate Low potassium diet Repeat BMP in the morning Subjective Date/time seen: 05/03/21 14:51 Interval history: Date of service: 05/03/2021 Thompson Salcedo is a 65-year-old male with a history of CKD, COPD, HIV, and hepatitis who is seen in follow-up for COVID-19 pneumonia. He is doing well today. He feels a little better each day. He says he has been on the phone throughout the day with family members. He says many people been calling him regarding problems at home, and this seems to be somewhat stressful for him. Advised him to remind his family that he needs to focus on healing at this time. He also told me that sometimes at night he gets a little bit anxious if his mask or his nasal cannula falls off while he is shifting
[2021-05-03] MEDS: SODIUM POLYSTYRENE SULFONONATE 15 GM/60 ML BTL PO (17:45)
--- NOTE | 2021-05-03 20:43 | PC.NURSE ---
Upon entering the patients room to make rounds and re-attach his pvc monitor and pulse ox, the patient started yelling at me that he is not going to put up with this fucking shit anymore and wants to sign out AMA. I asked him to please stop swearing and yelling at me, and he continued to say, you are not going to ramrod me, you wait and see what I can do to you! He demanded to speak to my dining room supervisor, so I notified Katina Garzon RN, charge nurse. She was busy with patients, so I called Ani Borjas RN, nursing dining room supervisor to speak with the patient. I gave report to Myesha LOU and she will take over care of this patient.
[2021-05-03] MEDS: ALPRAZolam (*CRX) 0.25 MG TABLET PO (22:00)
[2021-05-04] VITALS (18 sets, daily range): BP systolic 112–135; BP diastolic 74–90; PULSE 74–108; RESP 20–24; TEMP 36.1–37.1; O2SAT 91–100
--- NOTE | 2021-05-04 03:23 | PC.NURSE ---
Woke pt up to fix oxygen(NRB was under the blankets and pt was satting in mid 80's). Pt was tearful and crying that he didn't know what happened. I explained that they fall off frequently, especially when pts move around during sleep. Earlier in the night he had knocked off both the airvo and NRB while asleep and oxygen saturation dropped to the 70's. Pt even went so far as to say that he knows it was that other nurse (he fired another nurse at the beginning of the shift and thought that she sabotaged his oxygen. I explained again that oxygen falls off all all the time and that's another reason we watch his oxygen levels with the monitor. Pt was going to call his and leave and go to another hospital. I explained that with the amount of oxygen he was on that he would not likely make it. Rubbed his back and reassured him again. Pt seemed to calm down, but was still tearful.
[2021-05-04] MEDS: CENTRAL LINE FLUSH 10 ML IV PUSH ×3 (04:17→19:46)
[2021-05-04 04:20] LABS: Hematocrit 40.3 % (42.0-52.0); Hemoglobin 13.2 g/dL (14.0-18.0); Immature Platelet Fraction Pct 5.5 % (0.9-11.2); Mean Corpuscular HGB Conc 32.8 g/dl (32-36); Mean Corpuscular Hemoglobin 31.1 pg (26-34); Mean Platelet Volume 9.4 fl (7.4-10.4); Platelet Count Result 123 k/mm3 (150-375); Red Blood Count 4.24 M/mm3 (4.6-6.20); Red Cell Distribution Width 15.2 % (11.5-14.5); White Blood Count 9.6 K/mm3 (4.5-10.0)
[2021-05-04 05:15] LABS: Prothrombin Time 13.4 Seconds (11.1-14.7)
[2021-05-04 07:47] LABS: Alanine Aminotransferase 85 U/L (4-50); Albumin Level 3.3 g/dL (3.5-5.1); Alkaline Phosphatase 72 U/L (38-126); Anion Gap 5 mmol/L (8-16); Aspartate Amino Transferase 44 U/L (17-59); Bilirubin,Total 0.3 mg/dL (0.2-1.3); Blood Urea Nitrogen 29 mg/dL (9-20); CRP 3.2 mg/dL (<1.0); Calcium 8.5 mg/dL (8.4-10.2); Carbon Dioxide 30 mmol/L (22-30); Chloride 100 mmol/L (98-107); Estimated CRCL calculation 63 ml/min; Estimated Glomerular Filt Rate > 60; Glucose 119 mg/dL (65-110); Potassium 4.6 mmol/L (3.4-5.0); Sodium 135 mmol/L (137-145)
[2021-05-04] MEDS: amLODIPine BESYLATE 5 MG TABLET 10 MG PO (08:24)
[2021-05-04] MEDS: guaiFENesin 12 HR 600 MG TABCR PO ×2 (08:25→19:46)
[2021-05-04] MEDS: ENOXAPARIN 40 MG/0.4 ML SYRINGE SUB-Q (08:25)
[2021-05-04] MEDS: DEXAMETHASONE 2 MG TABLET 6 MG PO (08:25)
--- NOTE | 2021-05-04 08:40 | PM.IMPN ---
Progress Note: A&P Assessment and Plan (1) Acute respiratory failure with hypoxia: Code(s): J96.01 - Acute respiratory failure with hypoxia Status: Acute Assessment and Plan: Secondary to COVID-19 pneumonia. PE unlikely based on clinical picture, CTA reviewed with no evidence of PE in main pulmonary artery or left or right main pulmonary arteries. D-dimer is elevated at 2, which can be explained by acute illness with COVID-19. Wells score for PE is 0. Continue supplemental oxygen. He has required up to 60 L/min. Currently on Airvo 45 L with 15 L nonrebreather as needed Discussed with patient that if O2 sats not able to be maintained with current regimen, will need to transition to BiPAP and then next step would be intubation. He is agreeable to intubation should this become required. (2) Pneumonia due to COVID-19 virus: Code(s): U07.1 - COVID-19; J12.82 - Pneumonia due to coronavirus disease 2018 Status: Acute Assessment and Plan: Patient had COVID exposure 04/17/2021. Positive test at this facility 04/21/2021. Managing symptoms at home with supplemental oxygen up to 3 L, but O2 sats declined to the 50% range and had difficulty with ambulation, therefore presented for evaluation. CTA showed worsened diffuse lung disease consistent with COVID 19 pneumonia. Continue dexamethasone and remdesivir. First dose 04/28/2021. Will extend Remdesivir an additional 5 days. ALT is mildly elevated (85), though still acceptable range for continuation of remdesivir. Monitor closely Baricitinib not recommended per Infectious Disease specialist due to detectable HIV viral load Supportive care to include bronchodilators, expectorants, antipyretics, incentive spirometry Supplemental O2. Continue with Airvo as described above. Trend acute phase reactants Continue isolation precautions (3) COPD (chronic obstructive pulmonary disease): Qualifiers: COPD type: COPD with acute lower respiratory infection Qualified Code(s): J44.0 - Chronic obstructive pulmonary disease with (acute) lower respiratory infection Code(s): J44.9 - Chronic obstructive pulmonary disease, unspecified Status: Acute Assessment and Plan: Severe emphysema noted on CTA. Unfortunately, underlying COPD puts him at risk from more severe illness related to COVID-19. Not in acute exacerbation Continue with albuterol MDI q.6 hours scheduled (4) Transaminitis: Code(s): R74.01 - Elevation of levels of liver transaminase levels Status: Acute Assessment and Plan: Likely related to acute viral illness vs chronic hepatitis Continue to monitor labs daily. Close monitoring with remdesivir therapy. LFTs improving (5) Elevated d-dimer: Code(s): R79.89 - Other specified abnormal findings of blood chemistry Status: Acute Assessment and Plan: D-dimer 2.01. As noted above, likely related to acute illness with COVID-19. Please see above (6) Hyperkalemia: Code(s): E87.5 - Hyperkalemia Status: Acute Assessment and Plan: Potassium was mildly elevated up to 5.5 yesterday. Etiology for this is not clear. Received 1 dose Kayexalate, potassium levels stable today at 4.6 Low potassium diet Repeat BMP tomorrow Subjective Date/time seen: 05/04/21 08:40 Interval history: Date of service: 05/04/2021 Thompson Salcedo is a 65-year-old male with a history of CKD, COPD, HIV, and hepatitis who is seen in follow-up for COVID-19 pneumonia. He feels well today. He states that he had a bad night last night. He says last night he tried to get up and walk to the bathroom and he was yelled at by his nurse and he says they did not get along. He also had some family issues and he says he cried like a baby all night long. Today he is in good spirits and is not feeling upset any longer. His shortness of breath has improved. He is still coughing, denies sputum pro
[2021-05-04] MEDS: ALBUTEROL SULFATE (*SP) AEROSOL 1 PUFF 4 PUFF INHALATION ×3 (09:39→21:20)
[2021-05-04] MEDS: REMDESIVIR 100 MG/NS 250 ML 100 MG/250 ML BAG 250 MG IVPB (11:06)
[2021-05-04] MEDS: ALPRAZolam (*CRX) 0.25 MG TABLET PO (19:46)
[2021-05-05] VITALS (20 sets, daily range): BP systolic 114–150; BP diastolic 83–101; PULSE 66–106; RESP 20–24; TEMP 36.5–37.1; O2SAT 91–100
[2021-05-05] MEDS: ALBUTEROL SULFATE (*SP) AEROSOL 1 PUFF 4 PUFF INHALATION ×4 (01:38→20:30)
[2021-05-05] MEDS: CENTRAL LINE FLUSH 10 ML IV PUSH ×3 (04:37→19:54)
[2021-05-05 05:43] LABS: Hematocrit 38.3 % (42.0-52.0); Hemoglobin 12.5 g/dL (14.0-18.0); Mean Corpuscular HGB Conc 32.6 g/dl (32-36); Mean Corpuscular Hemoglobin 30.6 pg (26-34); Mean Corpuscular Volume 93.9 fl (80-100); Platelet Count Result 92 k/mm3 (150-375); Red Blood Count 4.08 M/mm3 (4.6-6.20); Red Cell Distribution Width 14.6 % (11.5-14.5); White Blood Count 10.5 K/mm3 (4.5-10.0)
[2021-05-05 05:54] LABS: Prothrombin Time 13.4 Seconds (11.1-14.7)
[2021-05-05 05:58] LABS: Alanine Aminotransferase 81 U/L (4-50); Albumin Level 3.1 g/dL (3.5-5.1); Alkaline Phosphatase 67 U/L (38-126); Anion Gap 4 mmol/L (8-16); Aspartate Amino Transferase 40 U/L (17-59); Bilirubin,Total 0.3 mg/dL (0.2-1.3); Blood Urea Nitrogen 33 mg/dL (9-20); Calcium 8.4 mg/dL (8.4-10.2); Carbon Dioxide 28 mmol/L (22-30); Chloride 103 mmol/L (98-107); Estimated CRCL calculation 58 ml/min; Estimated Glomerular Filt Rate > 60; Glucose 104 mg/dL (65-110); Lactate Dehydrogenase 983 U/L (313-618); Sodium 135 mmol/L (137-145)
[2021-05-05] MEDS: ENOXAPARIN 40 MG/0.4 ML SYRINGE SUB-Q (08:45)
[2021-05-05] MEDS: amLODIPine BESYLATE 5 MG TABLET 10 MG PO (08:46)
[2021-05-05] MEDS: guaiFENesin 12 HR 600 MG TABCR PO ×2 (08:46→19:54)
[2021-05-05] MEDS: DEXAMETHASONE 2 MG TABLET 6 MG PO (08:46)
[2021-05-05] MEDS: REMDESIVIR 100 MG/NS 250 ML 100 MG/250 ML BAG 250 MG IVPB (10:27)
--- NOTE | 2021-05-05 10:37 | PM.IMPN ---
Progress Note: A&P Assessment and Plan (1) Acute respiratory failure with hypoxia: Code(s): J96.01 - Acute respiratory failure with hypoxia Status: Acute Assessment and Plan: Secondary to COVID-19 pneumonia. PE unlikely based on clinical picture, CTA reviewed with no evidence of PE in main pulmonary artery or left or right main pulmonary arteries. D-dimer is elevated at 2, which can be explained by acute illness with COVID-19. Wells score for PE is 0. Continue supplemental oxygen. He has required up to 60 L/min. Currently on Airvo 45 L with 15 L nonrebreather as needed Discussed with patient that if O2 sats not able to be maintained with current regimen, will need to transition to BiPAP and then next step would be intubation. He is agreeable to intubation should this become required. (2) Pneumonia due to COVID-19 virus: Code(s): U07.1 - COVID-19; J12.82 - Pneumonia due to coronavirus disease 2018 Status: Acute Assessment and Plan: Patient had COVID exposure 04/17/2021. Positive test at this facility 04/21/2021. Managing symptoms at home with supplemental oxygen up to 3 L, but O2 sats declined to the 50% range and had difficulty with ambulation, therefore presented for evaluation. CTA showed worsened diffuse lung disease consistent with COVID 19 pneumonia. Continue dexamethasone and remdesivir. First dose 04/28/2021. Remdesivir extended an additional 5 days. ALT is mildly elevated (81), though still acceptable range for continuation of remdesivir. Monitor closely Baricitinib not recommended per Infectious Disease specialist due to detectable HIV viral load Supportive care to include bronchodilators, expectorants, antipyretics, incentive spirometry Supplemental O2. Continue with Airvo as described above. Trend acute phase reactants intermittently; overall improving Continue isolation precautions (3) COPD (chronic obstructive pulmonary disease): Qualifiers: COPD type: COPD with acute lower respiratory infection Qualified Code(s): J44.0 - Chronic obstructive pulmonary disease with (acute) lower respiratory infection Code(s): J44.9 - Chronic obstructive pulmonary disease, unspecified Status: Acute Assessment and Plan: Severe emphysema noted on CTA. Unfortunately, underlying COPD puts him at risk from more severe illness related to COVID-19. Not in acute exacerbation Continue with albuterol MDI q.6 hours scheduled (4) Transaminitis: Code(s): R74.01 - Elevation of levels of liver transaminase levels Status: Acute Assessment and Plan: Likely related to acute viral illness vs chronic hepatitis Continue to monitor labs daily. Close monitoring with remdesivir therapy. LFTs improving. AST levels normalized. (5) Elevated d-dimer: Code(s): R79.89 - Other specified abnormal findings of blood chemistry Status: Acute Assessment and Plan: D-dimer 2.01. As noted above, likely related to acute illness with COVID-19. Please see above (6) Hyperkalemia: Code(s): E87.5 - Hyperkalemia Status: Acute Assessment and Plan: Potassium was mildly elevated up to 5.5 on 05/03 and improved with one dose of kayexalate. Potassium levels stable today at 5.0 Low potassium diet Repeat BMP tomorrow Subjective Date/time seen: 05/05/21 10:37 Interval history: Date of service: 05/05/2021 Thompson Salcedo is a 65-year-old male with a history of CKD, COPD, HIV, and hepatitis who is seen in follow-up for COVID-19 pneumonia. He is doing well today. Shortness of breath is remaining stable he is not having much coughing. States he slept better last night and overall had a better night than last. Denies fevers or chills. No nausea, vomiting, dizziness, lightheadedness, weakness. Reports regular bowel movements and denies any urinary symptoms. He is eating well. He is in good spirits today. Review
--- NOTE | 2021-05-05 12:30 | PCNWS ---
Weekly nutritional screen. Patient is tolerating current diet with adequate intake. No weight loss reported. No nutritional needs at this time.
--- NOTE | 2021-05-05 13:57 | PCNSR ---
On 05/05/21, the student, Allison Best, provided care and completed [facility] documentation on this patient. I have reviewed the student's documentation and agree with the findings.
[2021-05-05] MEDS: ALPRAZolam (*CRX) 0.25 MG TABLET PO (19:54)
[2021-05-06] VITALS (19 sets, daily range): BP systolic 122–137; BP diastolic 73–88; PULSE 69–98; RESP 20–24; TEMP 36.1–36.6; O2SAT 88–98
[2021-05-06] MEDS: ALBUTEROL SULFATE (*SP) AEROSOL 1 PUFF 4 PUFF INHALATION ×4 (03:28→20:58)
[2021-05-06] MEDS: CENTRAL LINE FLUSH 10 ML IV PUSH ×3 (05:16→20:32)
[2021-05-06 08:10] LABS: Hematocrit 38.6 % (42.0-52.0); Hemoglobin 12.8 g/dL (14.0-18.0); Immature Platelet Fraction Pct 6.3 % (0.9-11.2); Mean Corpuscular HGB Conc 33.2 g/dl (32-36); Mean Corpuscular Hemoglobin 31.4 pg (26-34); Mean Corpuscular Volume 94.8 fl (80-100); Mean Platelet Volume 10.3 fl (7.4-10.4); Platelet Count Result 104 k/mm3 (150-375); Red Blood Count 4.07 M/mm3 (4.6-6.20); Red Cell Distribution Width 14.4 % (11.5-14.5); White Blood Count 10.7 K/mm3 (4.5-10.0)
[2021-05-06 08:13] LABS: Prothrombin Time 13.1 Seconds (11.1-14.7)
[2021-05-06 08:22] LABS: Alanine Aminotransferase 75 U/L (4-50); Albumin Level 3.1 g/dL (3.5-5.1); Alkaline Phosphatase 68 U/L (38-126); Anion Gap 5 mmol/L (8-16); Aspartate Amino Transferase 37 U/L (17-59); Bilirubin,Total 0.3 mg/dL (0.2-1.3); Blood Urea Nitrogen 29 mg/dL (9-20); Calcium 8.1 mg/dL (8.4-10.2); Carbon Dioxide 27 mmol/L (22-30); Chloride 102 mmol/L (98-107); Estimated CRCL calculation 63 ml/min; Estimated Glomerular Filt Rate > 60; Glucose 189 mg/dL (65-110); Potassium 4.6 mmol/L (3.4-5.0); Sodium 134 mmol/L (137-145)
[2021-05-06] MEDS: DEXAMETHASONE 2 MG TABLET 6 MG PO (08:53)
[2021-05-06] MEDS: amLODIPine BESYLATE 5 MG TABLET 10 MG PO (08:53)
[2021-05-06] MEDS: guaiFENesin 12 HR 600 MG TABCR PO ×2 (08:53→20:31)
--- NOTE | 2021-05-06 12:55 | PM.IMPN ---
Progress Note: A&P Assessment and Plan (1) Acute respiratory failure with hypoxia: Code(s): J96.01 - Acute respiratory failure with hypoxia Status: Acute Assessment and Plan: Secondary to COVID-19 pneumonia. PE unlikely based on clinical picture, CTA reviewed with no evidence of PE in main pulmonary artery or left or right main pulmonary arteries. D-dimer is elevated at 2, which can be explained by acute illness with COVID-19. Continue supplemental oxygen. He has required up to 60 L/min. Currently on Airvo 45 L with 15 L nonrebreather as needed. He has consistently required 45 L/min for the past 3 days. Discussed with patient that if O2 sats not able to be maintained with current regimen, will need to transition to BiPAP and then next step would be intubation. He is agreeable to intubation should this become required. (2) Pneumonia due to COVID-19 virus: Code(s): U07.1 - COVID-19; J12.82 - Pneumonia due to coronavirus disease 2018 Status: Acute Assessment and Plan: Patient had COVID exposure 04/17/2021. Positive test at this facility 04/21/2021. CTA showed worsened diffuse lung disease consistent with COVID 19 pneumonia. Continue dexamethasone and remdesivir. First dose 04/28/2021. Remdesivir extended an additional 5 days. ALT is mildly elevated (75), though still acceptable range for continuation of remdesivir. Monitor closely Baricitinib not recommended per Infectious Disease specialist due to detectable HIV viral load Supportive care to include bronchodilators, expectorants, antipyretics, incentive spirometry Supplemental O2. Continue with Airvo as described above. Trend acute phase reactants intermittently; overall improving Continue isolation precautions (3) COPD (chronic obstructive pulmonary disease): Qualifiers: COPD type: COPD with acute lower respiratory infection Qualified Code(s): J44.0 - Chronic obstructive pulmonary disease with (acute) lower respiratory infection Code(s): J44.9 - Chronic obstructive pulmonary disease, unspecified Status: Acute Assessment and Plan: Severe emphysema noted on CTA. Unfortunately, underlying COPD puts him at risk from more severe illness related to COVID-19. Not in acute exacerbation Continue with albuterol MDI q.6 hours scheduled (4) Transaminitis: Code(s): R74.01 - Elevation of levels of liver transaminase levels Status: Acute Assessment and Plan: Likely related to acute viral illness vs chronic hepatitis Continue to monitor labs daily. Close monitoring with remdesivir therapy. LFTs improving. AST levels normalized. (5) Elevated d-dimer: Code(s): R79.89 - Other specified abnormal findings of blood chemistry Status: Acute Assessment and Plan: D-dimer 2.01. As noted above, likely related to acute illness with COVID-19. Please see above (6) Hyperkalemia: Code(s): E87.5 - Hyperkalemia Status: Acute Assessment and Plan: Potassium was mildly elevated up to 5.5 on 05/03 and improved with one dose of kayexalate. Potassium levels stable today at 4.6 Low potassium diet Repeat BMP tomorrow Subjective Date/time seen: 05/06/21 12:55 Interval history: Date of service: 05/06/2021 Thompson Salcedo is a 65-year-old male with a history of CKD, COPD, HIV, and hepatitis who is seen in follow-up for COVID-19 pneumonia. He is doing well today. He states that since he 1st got here, he is feeling 50-75% better. Denies nausea, vomiting, fever, chills. He is no longer coughing. No chest pain or palpitations. Regular bowel movements. Appetite is good. He slept well last night. Review of Systems Review of Systems: All systems reviewed & are unremarkable except as noted in HPI and below Exam Narrative: Mr. Salcedo is a well-nourished, well-appearing 65-year-old male who is sitting up at the bedside. He appears comfortable a
[2021-05-06] MEDS: REMDESIVIR 100 MG/NS 250 ML 100 MG/250 ML BAG 250 MG IVPB (13:02)
[2021-05-06] MEDS: ALPRAZolam (*CRX) 0.25 MG TABLET PO (20:31)
[2021-05-07] VITALS (15 sets, daily range): BP systolic 123–136; BP diastolic 68–86; PULSE 75–97; RESP 18–24; TEMP 36.3–37; O2SAT 90–100
[2021-05-07] MEDS: ALBUTEROL SULFATE (*SP) AEROSOL 1 PUFF 4 PUFF INHALATION ×4 (01:58→20:10)
[2021-05-07 05:16] LABS: Hematocrit 37.3 % (42.0-52.0); Hemoglobin 12.2 g/dL (14.0-18.0); Immature Platelet Fraction Pct 7.3 % (0.9-11.2); Mean Corpuscular HGB Conc 32.7 g/dl (32-36); Mean Corpuscular Hemoglobin 30.7 pg (26-34); Mean Platelet Volume 11.4 fl (7.4-10.4); Platelet Count Result 82 k/mm3 (150-375); Red Blood Count 3.97 M/mm3 (4.6-6.20); Red Cell Distribution Width 14.7 % (11.5-14.5)
[2021-05-07 05:25] LABS: Prothrombin Time 12.9 Seconds (11.1-14.7)
[2021-05-07] MEDS: CENTRAL LINE FLUSH 10 ML IV PUSH ×3 (05:36→22:00)
[2021-05-07] MEDS: amLODIPine BESYLATE 5 MG TABLET 10 MG PO (09:08)
[2021-05-07] MEDS: guaiFENesin 12 HR 600 MG TABCR PO ×2 (09:08→20:57)
[2021-05-07] MEDS: DEXAMETHASONE 2 MG TABLET 6 MG PO (09:08)
[2021-05-07 09:45] LABS: Alanine Aminotransferase 76 U/L (4-50); Albumin Level 3.2 g/dL (3.5-5.1); Alkaline Phosphatase 69 U/L (38-126); Anion Gap 7 mmol/L (8-16); Aspartate Amino Transferase 34 U/L (17-59); Bilirubin,Total 0.3 mg/dL (0.2-1.3); Blood Urea Nitrogen 33 mg/dL (9-20); CRP 0.9 mg/dL (<1.0); Calcium 8.4 mg/dL (8.4-10.2); Carbon Dioxide 31 mmol/L (22-30); Chloride 101 mmol/L (98-107); Estimated CRCL calculation 54 ml/min; Estimated Glomerular Filt Rate > 60; Glucose 111 mg/dL (65-110); NT Pro B Type Natriuretic Pept 190 pg/mL (5-100); Sodium 139 mmol/L (137-145)
--- NOTE | 2021-05-07 10:35 | P.PNIM_ITS ---
Progress Note: A&P Assessment and Plan (1) Acute respiratory failure with hypoxia: Code(s): J96.01 - Acute respiratory failure with hypoxia Status: Acute Assessment and Plan: * Secondary to COVID-19 pneumonia. PE unlikely based on clinical picture, CTA reviewed with no evidence of PE in main pulmonary artery or left or right main pulmonary arteries. D-dimer is elevated at 2, which can be explained by acute illness with COVID-19. * Continue supplemental oxygen. He has required up to 60 L/min. Currently on Airvo 55 L, probably won't need non-rebreather anymore * Sating 90-93% without the non-rebreather * Titrate and wean oxygen as needed * Educated about O2 sats not able to be maintained with current regimen, will need to transition to BiPAP and then next step would be intubation. He is agreeable to intubation should this become required. * BNP slightly elevated * One dose of Lasix (2) Pneumonia due to COVID-19 virus: Code(s): U07.1 - COVID-19; J12.82 - Pneumonia due to coronavirus disease 2019 Status: Acute Assessment and Plan: * Patient had COVID exposure 04/17/2021. Positive test at this facility 04/21/2021. CTA showed worsened diffuse lung disease consistent with COVID 19 pneumonia. * Continue dexamethasone and remdesivir First dose 04/28/2021. * Remdesivir 10 day treatment ended 05/07/21 * Restart Decadron 6mg IV BID * ALT is mildly elevated (76), though still acceptable range for continuation of remdesivir. Monitor closely * Baricitinib not recommended per Infectious Disease specialist due to detectable HIV viral load * Supportive care to include bronchodilators, expectorants, antipyretics, incentive spirometry * Supplemental O2. Continue with Airvo as described above. * Trend acute phase reactants intermittently; overall improving * Continue isolation precautions * Inflammatory markers elevated: ferritin 250, LDH, CRP 0.9 * Get repeat chest xray in the am (3) COPD (chronic obstructive pulmonary disease): Qualifiers: COPD type: COPD with acute lower respiratory infection Qualified Code(s): J44.0 - Chronic obstructive pulmonary disease with (acute) lower respiratory infection Code(s): J44.9 - Chronic obstructive pulmonary disease, unspecified Status: Acute Assessment and Plan: * Severe emphysema noted on CTA. * underlying COPD puts him at risk from more severe illness related to COVID-19. * Not in acute exacerbation * Albuterol inhalation * Continue with albuterol MDI q.6 hours scheduled * Probably will be a good idea to start him on some inhalers for COPD (4) Transaminitis: Code(s): R74.01 - Elevation of levels of liver transaminase levels Status: Acute Assessment and Plan: * Likely related to acute viral illness vs chronic hepatitis * Continue to monitor labs daily. Close monitoring with remdesivir therapy. * LFTs improving. AST levels normalized. * ALT still a bit elevated (5) Elevated d-dimer: Code(s): R79.89 - Other specified abnormal findings of blood chemistry Status: Acute Assessment and Plan: * D-dimer 2.01. As noted above, likely related to acute illness with COVID-19. * Please see above (6) Hyperkalemia: Code(s): E87.5 - Hyperkalemia Status: Acute Assessment and Plan: * Potassium was mildly elevated up to 5.5 on 05/03 * improved with one dose of Kayexalate. * Potassium levels stable today at 5.0 * Low potassium diet * Trend labs (7) T
--- NOTE | 2021-05-07 10:35 | PM.IMPN ---
Progress Note: A&P Assessment and Plan (1) Acute respiratory failure with hypoxia: Code(s): J96.01 - Acute respiratory failure with hypoxia Status: Acute Assessment and Plan: Secondary to COVID-19 pneumonia. PE unlikely based on clinical picture, CTA reviewed with no evidence of PE in main pulmonary artery or left or right main pulmonary arteries. D-dimer is elevated at 2, which can be explained by acute illness with COVID-19. Continue supplemental oxygen. He has required up to 60 L/min. Currently on Airvo 55 L, probably won't need non-rebreather anymore Sating 90-93% without the non-rebreather Titrate and wean oxygen as needed Educated about O2 sats not able to be maintained with current regimen, will need to transition to BiPAP and then next step would be intubation. He is agreeable to intubation should this become required. BNP slightly elevated One dose of Lasix (2) Pneumonia due to COVID-19 virus: Code(s): U07.1 - COVID-19; J12.82 - Pneumonia due to coronavirus disease 2018 Status: Acute Assessment and Plan: Patient had COVID exposure 04/17/2021. Positive test at this facility 04/21/2021. CTA showed worsened diffuse lung disease consistent with COVID 19 pneumonia. Continue dexamethasone and remdesivir First dose 04/28/2021. Remdesivir 10 day treatment ended 05/07/21 Restart Decadron 6mg IV BID ALT is mildly elevated (76), though still acceptable range for continuation of remdesivir. Monitor closely Baricitinib not recommended per Infectious Disease specialist due to detectable HIV viral load Supportive care to include bronchodilators, expectorants, antipyretics, incentive spirometry Supplemental O2. Continue with Airvo as described above. Trend acute phase reactants intermittently; overall improving Continue isolation precautions Inflammatory markers elevated: ferritin 250, LDH, CRP 0.9 Get repeat chest xray in the am (3) COPD (chronic obstructive pulmonary disease): Qualifiers: COPD type: COPD with acute lower respiratory infection Qualified Code(s): J44.0 - Chronic obstructive pulmonary disease with (acute) lower respiratory infection Code(s): J44.9 - Chronic obstructive pulmonary disease, unspecified Status: Acute Assessment and Plan: Severe emphysema noted on CTA. underlying COPD puts him at risk from more severe illness related to COVID-19. Not in acute exacerbation Albuterol inhalation Continue with albuterol MDI q.6 hours scheduled Probably will be a good idea to start him on some inhalers for COPD (4) Transaminitis: Code(s): R74.01 - Elevation of levels of liver transaminase levels Status: Acute Assessment and Plan: Likely related to acute viral illness vs chronic hepatitis Continue to monitor labs daily. Close monitoring with remdesivir therapy. LFTs improving. AST levels normalized. ALT still a bit elevated (5) Elevated d-dimer: Code(s): R79.89 - Other specified abnormal findings of blood chemistry Status: Acute Assessment and Plan: D-dimer 2.01. As noted above, likely related to acute illness with COVID-19. Please see above (6) Hyperkalemia: Code(s): E87.5 - Hyperkalemia Status: Acute Assessment and Plan: Potassium was mildly elevated up to 5.5 on 05/03 improved with one dose of Kayexalate. Potassium levels stable today at 5.0 Low potassium diet Trend labs (7) Thrombocytopenia associated with AIDS: Code(s): B20 - Human immunodeficiency virus [HIV] disease; D69.59 - Other secondary thrombocytopenia Status: Acute Assessment and Plan: Platelet count mildly low, 82 today. Lovenox was then placed on hold, resume as appropriate Monitor platelet count closely old Lovenox if platelets <100k. (8) HIV (human immunodeficiency virus infection): Code(s): B20 - Human immunodefic
[2021-05-07] MEDS: REMDESIVIR 100 MG/NS 250 ML 100 MG/250 ML BAG 250 MG IVPB (11:00)
[2021-05-07 12:09] LABS: Lactate Dehydrogenase 993 U/L (313-618)
[2021-05-07] MEDS: FUROSEMIDE INJ 40 MG/4 ML VIAL IV PUSH (13:09)
[2021-05-07] MEDS: ALPRAZolam (*CRX) 0.25 MG TABLET PO (21:06)
[2021-05-08] VITALS (18 sets, daily range): BP systolic 126–140; BP diastolic 74–87; PULSE 72–980; RESP 18–22; TEMP 35.7–37.2; O2SAT 91–98
[2021-05-08] MEDS: ALBUTEROL SULFATE (*SP) AEROSOL 1 PUFF 4 PUFF INHALATION ×4 (01:56→21:30)
[2021-05-08 06:40] LABS: Basophils Percent Auto 0.2 % (0.2-1.2); Eosinophils Percent Auto 0.1 % (0-4.4); Hematocrit 38.9 % (42.0-52.0); Hemoglobin 12.7 g/dL (14.0-18.0); Immature Granulocyte Absolute 0.22 K/mm3 (0.00-0.031); Immature Granulocyte Percent A 2.1 % (0-0.5); Immature Platelet Fraction Pct 8.7 % (0.9-11.2); Lymphocytes Absolute Auto 0.44 K/mm3 (0.9-3.2); Lymphocytes Percent Auto 4.2 % (18.3-44.2); Mean Corpuscular HGB Conc 32.6 g/dl (32-36); Mean Corpuscular Hemoglobin 30.8 pg (26-34); Mean Corpuscular Volume 94.4 fl (80-100); Mean Platelet Volume 11.5 fl (7.4-10.4); Monocytes Absolute Auto 0.7 K/mm3 (0.1-0.6); Monocytes Percent Auto 6.8 % (2.6-8.5); Neutrophils Absolute Auto 9.1 K/mm3 (1.3-6.7); Neutrophils Percent Auto 86.6 % (45.5-73.1); Platelet Count Result 82 k/mm3 (150-375); Red Blood Count 4.12 M/mm3 (4.6-6.20); Red Cell Distribution Width 14.7 % (11.5-14.5); White Blood Count 10.5 K/mm3 (4.5-10.0)
[2021-05-08 08:09] LABS: Alanine Aminotransferase 85 U/L (4-50); Albumin Level 3.7 g/dL (3.5-5.1); Alkaline Phosphatase 85 U/L (38-126); Anion Gap 6 mmol/L (8-16); Aspartate Amino Transferase 43 U/L (17-59); Bilirubin,Total 0.5 mg/dL (0.2-1.3); Blood Urea Nitrogen 39 mg/dL (9-20); Calcium 9.1 mg/dL (8.4-10.2); Carbon Dioxide 31 mmol/L (22-30); Chloride 101 mmol/L (98-107); Estimated CRCL calculation 54 ml/min; Estimated Glomerular Filt Rate > 60; Glucose 138 mg/dL (65-110); Magnesium 2.4 mg/dL (1.6-2.3); Sodium 138 mmol/L (137-145)
--- NOTE | 2021-05-08 08:45 | PM.IMPN ---
Progress Note: A&P Assessment and Plan (1) Acute respiratory failure with hypoxia: Code(s): J96.01 - Acute respiratory failure with hypoxia Status: Acute Assessment and Plan: Secondary to COVID-19 pneumonia. PE unlikely based on clinical picture, CTA reviewed with no evidence of PE in main pulmonary artery or left or right main pulmonary arteries. D-dimer is elevated at 2, which can be explained by acute illness with COVID-19. Continue supplemental oxygen. He has required up to 60 L/min. Currently on Airvo 55 L, probably won't need non-rebreather anymore Sating 90-93% without the non-rebreather Titrate and wean oxygen as needed Educated about O2 sats not able to be maintained with current regimen, will need to transition to BiPAP and then next step would be intubation. He is agreeable to intubation should this become required. BNP slightly elevated One dose of Lasix 05/08/21 (2) Pneumonia due to COVID-19 virus: Code(s): U07.1 - COVID-19; J12.82 - Pneumonia due to coronavirus disease 2019 Status: Acute Assessment and Plan: Patient had COVID exposure 04/17/2021. Positive test at this facility 04/21/2021. CTA showed worsened diffuse lung disease consistent with COVID 19 pneumonia. Continue dexamethasone and remdesivir First dose 04/28/2021. Remdesivir 10 day treatment ended 05/07/21 Restart Decadron 6mg IV BID ALT is mildly elevated (76), though still acceptable range for continuation of remdesivir. Monitor closely Baricitinib not recommended per Infectious Disease specialist due to detectable HIV viral load Supportive care to include bronchodilators, expectorants, antipyretics, incentive spirometry Supplemental O2. Continue with Airvo as described above. Trend acute phase reactants intermittently; overall improving Continue isolation precautions Inflammatory markers elevated: ferritin 250, LDH, CRP 0.9 repeat chest xray Diffuse opacities throughout all lung zones, likely COVID 19 pneumonia superimposed on a background of emphysema. (3) COPD (chronic obstructive pulmonary disease): Qualifiers: COPD type: COPD with acute lower respiratory infection Qualified Code(s): J44.0 - Chronic obstructive pulmonary disease with (acute) lower respiratory infection Code(s): J44.9 - Chronic obstructive pulmonary disease, unspecified Status: Acute Assessment and Plan: Severe emphysema noted on CTA. underlying COPD puts him at risk from more severe illness related to COVID-19. Not in acute exacerbation Albuterol inhalation Continue with albuterol MDI q.6 hours scheduled Probably will be a good idea to start him on some inhalers for COPD (4) Transaminitis: Code(s): R74.01 - Elevation of levels of liver transaminase levels Status: Acute Assessment and Plan: Likely related to acute viral illness vs chronic hepatitis Continue to monitor labs daily. Close monitoring with remdesivir therapy. LFTs improving. AST levels normalized. ALT still a bit elevated (5) Elevated d-dimer: Code(s): R79.89 - Other specified abnormal findings of blood chemistry Status: Acute Assessment and Plan: D-dimer 2.01. As noted above, likely related to acute illness with COVID-19. Please see above (6) Hyperkalemia: Code(s): E87.5 - Hyperkalemia Status: Acute Assessment and Plan: Potassium was mildly elevated up to 5.5 on 05/03 improved with one dose of Kayexalate. Potassium levels stable today at 5.0 Low potassium diet Trend labs (7) Thrombocytopenia associated with AIDS: Code(s): B20 - Human immunodeficiency virus [HIV] disease; D69.59 - Other secondary thrombocytopenia Status: Acute Assessment and Plan: Platelet count mildly low, 82 today. Lovenox was then placed on hold, resume as appropriate Monitor platelet count closely old Lovenox if platelets
--- NOTE | 2021-05-08 08:45 | P.PNIM_ITS ---
Progress Note: A&P Assessment and Plan (1) Acute respiratory failure with hypoxia: Code(s): J96.01 - Acute respiratory failure with hypoxia Status: Acute Assessment and Plan: * Secondary to COVID-19 pneumonia. PE unlikely based on clinical picture, CTA reviewed with no evidence of PE in main pulmonary artery or left or right main pulmonary arteries. D-dimer is elevated at 2, which can be explained by acute illness with COVID-19. * Continue supplemental oxygen. He has required up to 60 L/min. Currently on Airvo 55 L, probably won't need non-rebreather anymore * Sating 90-93% without the non-rebreather * Titrate and wean oxygen as needed * Educated about O2 sats not able to be maintained with current regimen, will need to transition to BiPAP and then next step would be intubation. He is agreeable to intubation should this become required. * BNP slightly elevated * One dose of Lasix 05/08/21 (2) Pneumonia due to COVID-19 virus: Code(s): U07.1 - COVID-19; J12.82 - Pneumonia due to coronavirus disease 2019 Status: Acute Assessment and Plan: * Patient had COVID exposure 04/17/2021. Positive test at this facility 04/21/2021. CTA showed worsened diffuse lung disease consistent with COVID 19 pneumonia. * Continue dexamethasone and remdesivir First dose 04/28/2021. * Remdesivir 10 day treatment ended 05/07/21 * Restart Decadron 6mg IV BID * ALT is mildly elevated (76), though still acceptable range for continuation of remdesivir. Monitor closely * Baricitinib not recommended per Infectious Disease specialist due to detectable HIV viral load * Supportive care to include bronchodilators, expectorants, antipyretics, incentive spirometry * Supplemental O2. Continue with Airvo as described above. * Trend acute phase reactants intermittently; overall improving * Continue isolation precautions * Inflammatory markers elevated: ferritin 250, LDH, CRP 0.9 * repeat chest xray Diffuse opacities throughout all lung zones, likely COVID 19 pneumonia superimposed on a background of emphysema. (3) COPD (chronic obstructive pulmonary disease): Qualifiers: COPD type: COPD with acute lower respiratory infection Qualified Code(s): J44.0 - Chronic obstructive pulmonary disease with (acute) lower respiratory infection Code(s): J44.9 - Chronic obstructive pulmonary disease, unspecified Status: Acute Assessment and Plan: * Severe emphysema noted on CTA. * underlying COPD puts him at risk from more severe illness related to COVID-19. * Not in acute exacerbation * Albuterol inhalation * Continue with albuterol MDI q.6 hours scheduled * Probably will be a good idea to start him on some inhalers for COPD (4) Transaminitis: Code(s): R74.01 - Elevation of levels of liver transaminase levels Status: Acute Assessment and Plan: * Likely related to acute viral illness vs chronic hepatitis * Continue to monitor labs daily. Close monitoring with remdesivir therapy. * LFTs improving. AST levels normalized. * ALT still a bit elevated (5) Elevated d-dimer: Code(s): R79.89 - Other specified abnormal findings of blood chemistry Status: Acute Assessment and Plan: * D-dimer 2.01. As noted above, likely related to acute illness with COVID-19. * Please see above (6) Hyperkalemia: Code(s): E87.5 - Hyperkalemia Status: Acute Assessment and Plan: * Potassium was mildly elevated up to 5.5 on 05/03 * improved with one dose of Kayexalate. * Willem
[2021-05-08] MEDS: CENTRAL LINE FLUSH 10 ML IV PUSH ×3 (09:28→22:00)
[2021-05-08] MEDS: guaiFENesin 12 HR 600 MG TABCR PO ×2 (09:28→20:35)
[2021-05-08] MEDS: amLODIPine BESYLATE 5 MG TABLET 10 MG PO (09:28)
[2021-05-08] MEDS: ALPRAZolam (*CRX) 0.25 MG TABLET PO (20:54)
[2021-05-09] VITALS (16 sets, daily range): BP systolic 103–150; BP diastolic 71–87; PULSE 70–96; RESP 18–24; TEMP 36.1–37.3; O2SAT 88–100
[2021-05-09] MEDS: ALBUTEROL SULFATE (*SP) AEROSOL 1 PUFF 4 PUFF INHALATION ×4 (02:43→22:18)
[2021-05-09] MEDS: CENTRAL LINE FLUSH 10 ML IV PUSH ×3 (06:00→23:09)
[2021-05-09 06:37] LABS: Basophils Percent Auto 0.2 % (0.2-1.2); Hematocrit 38.4 % (42.0-52.0); Immature Granulocyte Absolute 0.24 K/mm3 (0.00-0.031); Immature Granulocyte Percent A 2.2 % (0-0.5); Immature Platelet Fraction Pct 7.7 % (0.9-11.2); Lymphocytes Absolute Auto 0.35 K/mm3 (0.9-3.2); Lymphocytes Percent Auto 3.1 % (18.3-44.2); Mean Corpuscular HGB Conc 33.9 g/dl (32-36); Mean Corpuscular Volume 91.4 fl (80-100); Monocytes Absolute Auto 0.8 K/mm3 (0.1-0.6); Monocytes Percent Auto 7.2 % (2.6-8.5); Neutrophils Absolute Auto 9.7 K/mm3 (1.3-6.7); Neutrophils Percent Auto 87.3 % (45.5-73.1); Platelet Count Result 91 k/mm3 (150-375); Red Cell Distribution Width 14.4 % (11.5-14.5); White Blood Count 11.2 K/mm3 (4.5-10.0)
[2021-05-09 06:41] LABS: Alanine Aminotransferase 71 U/L (4-50); Albumin Level 3.1 g/dL (3.5-5.1); Alkaline Phosphatase 67 U/L (38-126); Anion Gap 3 mmol/L (8-16); Aspartate Amino Transferase 35 U/L (17-59); Bilirubin,Total 0.3 mg/dL (0.2-1.3); Blood Urea Nitrogen 41 mg/dL (9-20); CRP < 0.5 mg/dL (<1.0); Calcium 8.4 mg/dL (8.4-10.2); Carbon Dioxide 31 mmol/L (22-30); Chloride 100 mmol/L (98-107); D Dimer 3.46 ug/mL (<0.48); Estimated CRCL calculation 58 ml/min; Estimated Glomerular Filt Rate > 60; Glucose 172 mg/dL (65-110); Magnesium 2.3 mg/dL (1.6-2.3); Potassium 4.6 mmol/L (3.4-5.0); Sodium 134 mmol/L (137-145)
--- NOTE | 2021-05-09 08:15 | PM.IMPN ---
Progress Note: A&P Assessment and Plan (1) Acute respiratory failure with hypoxia: Code(s): J96.01 - Acute respiratory failure with hypoxia Status: Acute Assessment and Plan: Secondary to COVID-19 pneumonia. PE unlikely based on clinical picture, CTA reviewed with no evidence of PE in main pulmonary artery or left or right main pulmonary arteries. D-dimer is elevated at 2, which can be explained by acute illness with COVID-19. Continue supplemental oxygen wean as tolerated Currently on 15L high flow cannula Sating 90-93% without the non-rebreather Titrate and wean oxygen as needed Educated about O2 sats not able to be maintained with current regimen, will need to transition to BiPAP and then next step would be intubation. He is agreeable to intubation should this become required. BNP slightly elevated One dose of Lasix 05/08/21, will repeat today (2) Pneumonia due to COVID-19 virus: Code(s): U07.1 - COVID-19; J12.82 - Pneumonia due to coronavirus disease 2018 Status: Acute Assessment and Plan: Patient had COVID exposure 04/17/2021. Positive test at this facility 04/21/2021. CTA showed worsened diffuse lung disease consistent with COVID 19 pneumonia. Continue dexamethasone and remdesivir First dose 04/28/2021. Remdesivir 10 day treatment ended 05/07/21 Restart Decadron 6mg IV BID ALT is mildly elevated (71), though still acceptable range for continuation of remdesivir. Monitor closely Baricitinib not recommended per Infectious Disease specialist due to detectable HIV viral load Supportive care to include bronchodilators, expectorants, antipyretics, incentive spirometry Supplemental O2 wean as tolerate Trend acute phase reactants intermittently; overall improving Continue isolation precautions Inflammatory markers elevated: ferritin 250, LDH, CRP 0.9 repeat chest xray Diffuse opacities throughout all lung zones, likely COVID 19 pneumonia superimposed on a background of emphysema. (3) COPD (chronic obstructive pulmonary disease): Qualifiers: COPD type: COPD with acute lower respiratory infection Qualified Code(s): J44.0 - Chronic obstructive pulmonary disease with (acute) lower respiratory infection Code(s): J44.9 - Chronic obstructive pulmonary disease, unspecified Status: Acute Assessment and Plan: Severe emphysema noted on CTA. underlying COPD puts him at risk from more severe illness related to COVID-19. Not in acute exacerbation Albuterol inhalation Continue with albuterol MDI q.6 hours scheduled Probably will be a good idea to start him on some inhalers for COPD (4) Transaminitis: Code(s): R74.01 - Elevation of levels of liver transaminase levels Status: Acute Assessment and Plan: Likely related to acute viral illness vs chronic hepatitis Continue to monitor labs daily. Close monitoring with remdesivir therapy. LFTs improving. AST levels normalized. ALT still a bit elevated (5) Elevated d-dimer: Code(s): R79.89 - Other specified abnormal findings of blood chemistry Status: Acute Assessment and Plan: D-dimer 3.46. As noted above, likely related to acute illness with COVID-19. Please see above (6) Hyperkalemia: Code(s): E87.5 - Hyperkalemia Status: Acute Assessment and Plan: Potassium was mildly elevated up to 5.5 on 05/03 improved with one dose of Kayexalate. Potassium levels stable today at 4.6 Low potassium diet Trend labs (7) Thrombocytopenia associated with AIDS: Code(s): B20 - Human immunodeficiency virus [HIV] disease; D69.59 - Other secondary thrombocytopenia Status: Acute Assessment and Plan: Platelet count mildly low, 91 today. Lovenox was then placed on hold, resume as appropriate Monitor platelet count closely old Lovenox if platelets <100k. (8) HIV (human immunodeficiency vir
--- NOTE | 2021-05-09 08:15 | P.PNIM_ITS ---
Progress Note: A&P Assessment and Plan (1) Acute respiratory failure with hypoxia: Code(s): J96.01 - Acute respiratory failure with hypoxia Status: Acute Assessment and Plan: * Secondary to COVID-19 pneumonia. PE unlikely based on clinical picture, CTA reviewed with no evidence of PE in main pulmonary artery or left or right main pulmonary arteries. D-dimer is elevated at 2, which can be explained by acute illness with COVID-19. * Continue supplemental oxygen wean as tolerated * Currently on 15L high flow cannula * Sating 90-93% without the non-rebreather * Titrate and wean oxygen as needed * Educated about O2 sats not able to be maintained with current regimen, will need to transition to BiPAP and then next step would be intubation. He is agreeable to intubation should this become required. * BNP slightly elevated * One dose of Lasix 05/08/21, will repeat today (2) Pneumonia due to COVID-19 virus: Code(s): U07.1 - COVID-19; J12.82 - Pneumonia due to coronavirus disease 2018 Status: Acute Assessment and Plan: * Patient had COVID exposure 04/17/2021. Positive test at this facility 04/21/2021. CTA showed worsened diffuse lung disease consistent with COVID 19 pneumonia. * Continue dexamethasone and remdesivir First dose 04/28/2021. * Remdesivir 10 day treatment ended 05/07/21 * Restart Decadron 6mg IV BID * ALT is mildly elevated (71), though still acceptable range for continuation of remdesivir. Monitor closely * Baricitinib not recommended per Infectious Disease specialist due to detectable HIV viral load * Supportive care to include bronchodilators, expectorants, antipyretics, incentive spirometry * Supplemental O2 wean as tolerate * Trend acute phase reactants intermittently; overall improving * Continue isolation precautions * Inflammatory markers elevated: ferritin 250, LDH, CRP 0.9 * repeat chest xray Diffuse opacities throughout all lung zones, likely COVID 19 pneumonia superimposed on a background of emphysema. (3) COPD (chronic obstructive pulmonary disease): Qualifiers: COPD type: COPD with acute lower respiratory infection Qualified Code(s): J44.0 - Chronic obstructive pulmonary disease with (acute) lower respiratory infection Code(s): J44.9 - Chronic obstructive pulmonary disease, unspecified Status: Acute Assessment and Plan: * Severe emphysema noted on CTA. * underlying COPD puts him at risk from more severe illness related to COVID-19. * Not in acute exacerbation * Albuterol inhalation * Continue with albuterol MDI q.6 hours scheduled * Probably will be a good idea to start him on some inhalers for COPD (4) Transaminitis: Code(s): R74.01 - Elevation of levels of liver transaminase levels Status: Acute Assessment and Plan: * Likely related to acute viral illness vs chronic hepatitis * Continue to monitor labs daily. Close monitoring with remdesivir therapy. * LFTs improving. AST levels normalized. * ALT still a bit elevated (5) Elevated d-dimer: Code(s): R79.89 - Other specified abnormal findings of blood chemistry Status: Acute Assessment and Plan: * D-dimer 3.46. As noted above, likely related to acute illness with COVID-19. * Please see above (6) Hyperkalemia: Code(s): E87.5 - Hyperkalemia Status: Acute Assessment and Plan: * Potassium was mildly elevated up to 5.5 on 05/03 * improved with one dose of Kayexalate. * Potassium levels stable today at 4.6 * Low potassium
[2021-05-09] MEDS: amLODIPine BESYLATE 5 MG TABLET 10 MG PO (09:24)
[2021-05-09] MEDS: ALPRAZolam (*CRX) 0.25 MG TABLET PO ×2 (09:24→23:09)
[2021-05-09] MEDS: guaiFENesin 12 HR 600 MG TABCR PO ×2 (09:25→23:09)
[2021-05-09] MEDS: PANTOPRAZOLE 40 MG TABLET PO ×2 (16:50→23:09)
[2021-05-10] VITALS (14 sets, daily range): BP systolic 122–152; BP diastolic 73–85; PULSE 67–96; RESP 16–22; TEMP 36.2–36.8; O2SAT 83–100
[2021-05-10] MEDS: ALBUTEROL SULFATE (*SP) AEROSOL 1 PUFF 4 PUFF INHALATION ×3 (03:51→20:14)
[2021-05-10] MEDS: CENTRAL LINE FLUSH 10 ML IV PUSH ×3 (05:33→20:19)
[2021-05-10 05:47] LABS: Basophils Percent Auto 0.2 % (0.2-1.2); Hematocrit 37.3 % (42.0-52.0); Hemoglobin 12.7 g/dL (14.0-18.0); Immature Granulocyte Absolute 0.23 K/mm3 (0.00-0.031); Immature Granulocyte Percent A 1.8 % (0-0.5); Immature Platelet Fraction Pct 7.2 % (0.9-11.2); Lymphocytes Absolute Auto 0.42 K/mm3 (0.9-3.2); Lymphocytes Percent Auto 3.4 % (18.3-44.2); Mean Corpuscular Hemoglobin 30.7 pg (26-34); Mean Corpuscular Volume 90.1 fl (80-100); Mean Platelet Volume 11.4 fl (7.4-10.4); Monocytes Absolute Auto 0.9 K/mm3 (0.1-0.6); Monocytes Percent Auto 7.4 % (2.6-8.5); Neutrophils Absolute Auto 10.9 K/mm3 (1.3-6.7); Neutrophils Percent Auto 87.2 % (45.5-73.1); Platelet Count Result 93 k/mm3 (150-375); Red Blood Count 4.14 M/mm3 (4.6-6.20); Red Cell Distribution Width 14.3 % (11.5-14.5); White Blood Count 12.5 K/mm3 (4.5-10.0)
[2021-05-10 05:59] LABS: Alanine Aminotransferase 73 U/L (4-50); Albumin Level 3.1 g/dL (3.5-5.1); Alkaline Phosphatase 73 U/L (38-126); Anion Gap 4 mmol/L (8-16); Aspartate Amino Transferase 33 U/L (17-59); Bilirubin,Total 0.3 mg/dL (0.2-1.3); Blood Urea Nitrogen 40 mg/dL (9-20); CRP < 0.5 mg/dL (<1.0); Calcium 8.2 mg/dL (8.4-10.2); Carbon Dioxide 27 mmol/L (22-30); Chloride 102 mmol/L (98-107); Estimated CRCL calculation 54 ml/min; Estimated Glomerular Filt Rate > 60; Glucose 154 mg/dL (65-110); Lactate Dehydrogenase 974 U/L (313-618); Magnesium 2.3 mg/dL (1.6-2.3); Potassium 4.4 mmol/L (3.4-5.0); Sodium 133 mmol/L (137-145)
[2021-05-10 06:02] LABS: D Dimer 3.82 ug/mL (<0.48)
--- NOTE | 2021-05-10 06:45 | P.PNIM_ITS ---
Progress Note: A&P Assessment and Plan (1) Acute respiratory failure with hypoxia: Code(s): J96.01 - Acute respiratory failure with hypoxia Status: Acute Assessment and Plan: * Secondary to COVID-19 pneumonia. PE unlikely based on clinical picture, CTA reviewed with no evidence of PE in main pulmonary artery or left or right main pulmonary arteries. D-dimer is elevated at 2, which can be explained by acute illness with COVID-19. * Continue supplemental oxygen wean as tolerated * Currently on 10L high flow cannula * Sating 90-93% without the non-rebreather * Titrate and wean oxygen as needed * Educated about O2 sats not able to be maintained with current regimen, will need to transition to BiPAP and then next step would be intubation. He is agreeable to intubation should this become required. * BNP slightly elevated * One dose of Lasix again today * Will move patient out of IMU (2) Pneumonia due to COVID-19 virus: Code(s): U07.1 - COVID-19; J12.82 - Pneumonia due to coronavirus disease 2018 Status: Acute Assessment and Plan: * Patient had COVID exposure 04/17/2021. Positive test at this facility 04/21/2021. CTA showed worsened diffuse lung disease consistent with COVID 19 pneumonia. * Continue dexamethasone and remdesivir First dose 04/28/2021. * Remdesivir 10 day treatment ended 05/07/21 * Restart Decadron 6mg IV BID * ALT is mildly elevated (71), though still acceptable range for continuation of remdesivir. Monitor closely * Baricitinib not recommended per Infectious Disease specialist due to detectable HIV viral load * Supportive care to include bronchodilators, expectorants, antipyretics, incentive spirometry * Supplemental O2 wean as tolerate * Trend acute phase reactants intermittently; overall improving * Continue isolation precautions * Inflammatory markers elevated: ferritin 250, LDH, CRP 0.9 * repeat chest xray Diffuse opacities throughout all lung zones, likely COVID 19 pneumonia superimposed on a background of emphysema. (3) COPD (chronic obstructive pulmonary disease): Qualifiers: COPD type: COPD with acute lower respiratory infection Qualified Code(s): J44.0 - Chronic obstructive pulmonary disease with (acute) lower respiratory infection Code(s): J44.9 - Chronic obstructive pulmonary disease, unspecified Status: Acute Assessment and Plan: * Severe emphysema noted on CTA. * underlying COPD puts him at risk from more severe illness related to COVID-19. * Not in acute exacerbation * Albuterol inhalation * Continue with albuterol MDI q.6 hours scheduled * Probably will be a good idea to start him on some inhalers for COPD (4) Transaminitis: Code(s): R74.01 - Elevation of levels of liver transaminase levels Status: Acute Assessment and Plan: * Likely related to acute viral illness vs chronic hepatitis * Continue to monitor labs daily. Close monitoring with remdesivir therapy. * LFTs improving. AST levels normalized. * ALT still a bit elevated (5) Elevated d-dimer: Code(s): R79.89 - Other specified abnormal findings of blood chemistry Status: Acute Assessment and Plan: * D-dimer 3.82. As noted above, likely related to acute illness with COVID-19. * Please see above (6) Hyperkalemia: Code(s): E87.5 - Hyperkalemia Status: Acute Assessment and Plan: * Potassium was mildly elevated up to 5.5 on 05/03 * improved with one dose of Kayexalate. * Potassium levels stable today at 4.4
--- NOTE | 2021-05-10 06:45 | PM.IMPN ---
Progress Note: A&P Assessment and Plan (1) Acute respiratory failure with hypoxia: Code(s): J96.01 - Acute respiratory failure with hypoxia Status: Acute Assessment and Plan: Secondary to COVID-19 pneumonia. PE unlikely based on clinical picture, CTA reviewed with no evidence of PE in main pulmonary artery or left or right main pulmonary arteries. D-dimer is elevated at 2, which can be explained by acute illness with COVID-19. Continue supplemental oxygen wean as tolerated Currently on 10L high flow cannula Sating 90-93% without the non-rebreather Titrate and wean oxygen as needed Educated about O2 sats not able to be maintained with current regimen, will need to transition to BiPAP and then next step would be intubation. He is agreeable to intubation should this become required. BNP slightly elevated One dose of Lasix again today Will move patient out of IMU (2) Pneumonia due to COVID-19 virus: Code(s): U07.1 - COVID-19; J12.82 - Pneumonia due to coronavirus disease 2018 Status: Acute Assessment and Plan: Patient had COVID exposure 04/17/2021. Positive test at this facility 04/21/2021. CTA showed worsened diffuse lung disease consistent with COVID 19 pneumonia. Continue dexamethasone and remdesivir First dose 04/28/2021. Remdesivir 10 day treatment ended 05/07/21 Restart Decadron 6mg IV BID ALT is mildly elevated (71), though still acceptable range for continuation of remdesivir. Monitor closely Baricitinib not recommended per Infectious Disease specialist due to detectable HIV viral load Supportive care to include bronchodilators, expectorants, antipyretics, incentive spirometry Supplemental O2 wean as tolerate Trend acute phase reactants intermittently; overall improving Continue isolation precautions Inflammatory markers elevated: ferritin 250, LDH, CRP 0.9 repeat chest xray Diffuse opacities throughout all lung zones, likely COVID 19 pneumonia superimposed on a background of emphysema. (3) COPD (chronic obstructive pulmonary disease): Qualifiers: COPD type: COPD with acute lower respiratory infection Qualified Code(s): J44.0 - Chronic obstructive pulmonary disease with (acute) lower respiratory infection Code(s): J44.9 - Chronic obstructive pulmonary disease, unspecified Status: Acute Assessment and Plan: Severe emphysema noted on CTA. underlying COPD puts him at risk from more severe illness related to COVID-19. Not in acute exacerbation Albuterol inhalation Continue with albuterol MDI q.6 hours scheduled Probably will be a good idea to start him on some inhalers for COPD (4) Transaminitis: Code(s): R74.01 - Elevation of levels of liver transaminase levels Status: Acute Assessment and Plan: Likely related to acute viral illness vs chronic hepatitis Continue to monitor labs daily. Close monitoring with remdesivir therapy. LFTs improving. AST levels normalized. ALT still a bit elevated (5) Elevated d-dimer: Code(s): R79.89 - Other specified abnormal findings of blood chemistry Status: Acute Assessment and Plan: D-dimer 3.82. As noted above, likely related to acute illness with COVID-19. Please see above (6) Hyperkalemia: Code(s): E87.5 - Hyperkalemia Status: Acute Assessment and Plan: Potassium was mildly elevated up to 5.5 on 05/03 improved with one dose of Kayexalate. Potassium levels stable today at 4.4 Low potassium diet Trend labs (7) Thrombocytopenia associated with AIDS: Code(s): B20 - Human immunodeficiency virus [HIV] disease; D69.59 - Other secondary thrombocytopenia Status: Acute Assessment and Plan: Platelet count mildly low, 93 today. Lovenox was then placed on hold, resume as appropriate Monitor platelet count closely old Lovenox if platelets <100k. (8) HIV (human immuno
[2021-05-10] MEDS: PANTOPRAZOLE 40 MG TABLET PO ×2 (09:34→20:19)
[2021-05-10] MEDS: amLODIPine BESYLATE 5 MG TABLET 10 MG PO (09:34)
[2021-05-10] MEDS: guaiFENesin 12 HR 600 MG TABCR PO ×2 (09:34→20:19)
[2021-05-10 19:41] LABS: HIV 1 RNA PCR <1.30 Log cps/mL; HIV 1 RNA PCR <20 Copies/mL
[2021-05-10] MEDS: ALPRAZolam (*CRX) 0.25 MG TABLET PO (20:19)
[2021-05-11] VITALS (11 sets, daily range): BP systolic 125–131; BP diastolic 72–80; PULSE 75–107; RESP 18–20; TEMP 36.2–37.1; O2SAT 77–100
[2021-05-11] MEDS: ALBUTEROL SULFATE (*SP) AEROSOL 1 PUFF 4 PUFF INHALATION ×2 (01:40→09:11)
[2021-05-11] MEDS: CENTRAL LINE FLUSH 10 ML IV PUSH ×2 (05:35→17:34)
--- NOTE | 2021-05-11 07:15 | P.PNIM_ITS ---
Progress Note: A&P Assessment and Plan (1) Acute respiratory failure with hypoxia: Code(s): J96.01 - Acute respiratory failure with hypoxia Status: Acute Assessment and Plan: * Secondary to COVID-19 pneumonia. PE unlikely based on clinical picture, CTA reviewed with no evidence of PE in main pulmonary artery or left or right main pulmonary arteries. D-dimer is elevated at 2, which can be explained by acute illness with COVID-19. * Continue supplemental oxygen wean as tolerated * Currently on 10L high flow cannula * Sating 90-93% * Titrate and wean oxygen as needed * BNP slightly elevated, recheck in the am * Lasix 40mg IV daily, for crackles in the right lower lobe and increase pedal edema * Transfer orders still in for this patient to move to the floor (2) Pneumonia due to COVID-19 virus: Code(s): U07.1 - COVID-19; J12.82 - Pneumonia due to coronavirus disease 2018 Status: Acute Assessment and Plan: * Patient had COVID exposure 04/17/2021. Positive test at this facility 04/21/2021. CTA showed worsened diffuse lung disease consistent with COVID 19 pneumonia. * Remdesivir 10 day treatment ended 05/07/21 * Restart Decadron 6mg IV BID * ALT is mildly elevated (71), though still acceptable range for continuation of remdesivir. Monitor closely * HIV viral load undetectable * Continue to hold off on baricitinib * Supportive care to include bronchodilators, expectorants, antipyretics, incentive spirometry * Supplemental O2 wean as tolerate * Trend acute phase reactants intermittently; overall improving * Continue isolation precautions * Inflammatory markers elevated: ferritin 250, LDH 974, CRP 0.9, repeat in the am * repeat chest xray Diffuse opacities throughout all lung zones, likely COVID 19 pneumonia superimposed on a background of emphysema. (3) COPD (chronic obstructive pulmonary disease): Qualifiers: COPD type: COPD with acute lower respiratory infection Qualified Code(s): J44.0 - Chronic obstructive pulmonary disease with (acute) lower respiratory infection Code(s): J44.9 - Chronic obstructive pulmonary disease, unspecified Status: Acute Assessment and Plan: * Severe emphysema noted on CTA. * underlying COPD puts him at risk from more severe illness related to COVID-19. * Not in acute exacerbation * Albuterol inhalation * Continue with albuterol MDI q.6 hours scheduled * Probably will be a good idea to start him on some inhalers for COPD (4) Transaminitis: Code(s): R74.01 - Elevation of levels of liver transaminase levels Status: Acute Assessment and Plan: * Likely related to acute viral illness vs chronic hepatitis * Continue to monitor labs daily. Close monitoring with remdesivir therapy. * LFTs improving. AST levels normalized. * ALT still a bit elevated (5) Elevated d-dimer: Code(s): R79.89 - Other specified abnormal findings of blood chemistry Status: Acute Assessment and Plan: * D-dimer 3.82. As noted above, likely related to acute illness with COVID-19. * Please see above (6) Hyperkalemia: Code(s): E87.5 - Hyperkalemia Status: Acute Assessment and Plan: * Potassium was mildly elevated up to 5.5 on 05/03 * improved with one dose of Kayexalate. * Potassium levels stable today at 4.4 * Low potassium diet * Trend labs (7) Thrombocytopenia associated with AIDS: Code(s): B20 - Human immunodeficiency virus [HIV] disease; D69.59 - Othe
--- NOTE | 2021-05-11 07:15 | PM.IMPN ---
Progress Note: A&P Assessment and Plan (1) Acute respiratory failure with hypoxia: Code(s): J96.01 - Acute respiratory failure with hypoxia Status: Acute Assessment and Plan: Secondary to COVID-19 pneumonia. PE unlikely based on clinical picture, CTA reviewed with no evidence of PE in main pulmonary artery or left or right main pulmonary arteries. D-dimer is elevated at 2, which can be explained by acute illness with COVID-19. Continue supplemental oxygen wean as tolerated Currently on 10L high flow cannula Sating 90-93% Titrate and wean oxygen as needed BNP slightly elevated, recheck in the am Lasix 40mg IV daily, for crackles in the right lower lobe and increase pedal edema Transfer orders still in for this patient to move to the floor (2) Pneumonia due to COVID-19 virus: Code(s): U07.1 - COVID-19; J12.82 - Pneumonia due to coronavirus disease 2018 Status: Acute Assessment and Plan: Patient had COVID exposure 04/17/2021. Positive test at this facility 04/21/2021. CTA showed worsened diffuse lung disease consistent with COVID 19 pneumonia. Remdesivir 10 day treatment ended 05/07/21 Restart Decadron 6mg IV BID ALT is mildly elevated (71), though still acceptable range for continuation of remdesivir. Monitor closely HIV viral load undetectable Continue to hold off on baricitinib Supportive care to include bronchodilators, expectorants, antipyretics, incentive spirometry Supplemental O2 wean as tolerate Trend acute phase reactants intermittently; overall improving Continue isolation precautions Inflammatory markers elevated: ferritin 250, LDH 974, CRP 0.9, repeat in the am repeat chest xray Diffuse opacities throughout all lung zones, likely COVID 19 pneumonia superimposed on a background of emphysema. (3) COPD (chronic obstructive pulmonary disease): Qualifiers: COPD type: COPD with acute lower respiratory infection Qualified Code(s): J44.0 - Chronic obstructive pulmonary disease with (acute) lower respiratory infection Code(s): J44.9 - Chronic obstructive pulmonary disease, unspecified Status: Acute Assessment and Plan: Severe emphysema noted on CTA. underlying COPD puts him at risk from more severe illness related to COVID-19. Not in acute exacerbation Albuterol inhalation Continue with albuterol MDI q.6 hours scheduled Probably will be a good idea to start him on some inhalers for COPD (4) Transaminitis: Code(s): R74.01 - Elevation of levels of liver transaminase levels Status: Acute Assessment and Plan: Likely related to acute viral illness vs chronic hepatitis Continue to monitor labs daily. Close monitoring with remdesivir therapy. LFTs improving. AST levels normalized. ALT still a bit elevated (5) Elevated d-dimer: Code(s): R79.89 - Other specified abnormal findings of blood chemistry Status: Acute Assessment and Plan: D-dimer 3.82. As noted above, likely related to acute illness with COVID-19. Please see above (6) Hyperkalemia: Code(s): E87.5 - Hyperkalemia Status: Acute Assessment and Plan: Potassium was mildly elevated up to 5.5 on 05/03 improved with one dose of Kayexalate. Potassium levels stable today at 4.4 Low potassium diet Trend labs (7) Thrombocytopenia associated with AIDS: Code(s): B20 - Human immunodeficiency virus [HIV] disease; D69.59 - Other secondary thrombocytopenia Status: Acute Assessment and Plan: Platelet count mildly low, 93 today. Lovenox was then placed on hold, resume as appropriate Monitor platelet count closely old Lovenox if platelets <100k. (8) HIV (human immunodeficiency virus infection): Code(s): B20 - Human immunodeficiency virus [HIV] disease Status: Acute Assessment and Plan: Positive since 1982 Continue home medications
[2021-05-11 08:44] LABS: Basophils Absolute Auto 0.1 K/mm3 (0.0-0.1); Basophils Percent Auto 0.3 % (0.2-1.2); Hematocrit 38.8 % (42.0-52.0); Hemoglobin 12.9 g/dL (14.0-18.0); Immature Granulocyte Percent A 4.6 % (0-0.5); Immature Platelet Fraction Pct 6.9 % (0.9-11.2); Lymphocytes Absolute Auto 0.51 K/mm3 (0.9-3.2); Lymphocytes Percent Auto 3.4 % (18.3-44.2); Mean Corpuscular HGB Conc 33.2 g/dl (32-36); Mean Corpuscular Volume 93.3 fl (80-100); Mean Platelet Volume 10.8 fl (7.4-10.4); Monocytes Percent Auto 6.4 % (2.6-8.5); Neutrophils Percent Auto 85.3 % (45.5-73.1); Platelet Count Result 94 k/mm3 (150-375); Red Blood Count 4.16 M/mm3 (4.6-6.20); Red Cell Distribution Width 14.6 % (11.5-14.5); White Blood Count 15.2 K/mm3 (4.5-10.0)
[2021-05-11] MEDS: guaiFENesin 12 HR 600 MG TABCR PO ×2 (08:56→20:28)
[2021-05-11] MEDS: PANTOPRAZOLE 40 MG TABLET PO ×2 (08:56→20:28)
[2021-05-11 08:58] LABS: Alanine Aminotransferase 70 U/L (4-50); Albumin Level 2.9 g/dL (3.5-5.1); Alkaline Phosphatase 65 U/L (38-126); Anion Gap 7 mmol/L (8-16); Aspartate Amino Transferase 30 U/L (17-59); Bilirubin,Total 0.4 mg/dL (0.2-1.3); Blood Urea Nitrogen 36 mg/dL (9-20); Calcium 8.3 mg/dL (8.4-10.2); Carbon Dioxide 25 mmol/L (22-30); Chloride 107 mmol/L (98-107); Estimated CRCL calculation 58 ml/min; Estimated Glomerular Filt Rate > 60; Glucose 136 mg/dL (65-110); Potassium 4.5 mmol/L (3.4-5.0); Sodium 139 mmol/L (137-145)
[2021-05-11] MEDS: ALPRAZolam (*CRX) 0.25 MG TABLET PO (09:09)
[2021-05-11] MEDS: amLODIPine BESYLATE 5 MG TABLET 10 MG PO (09:09)
[2021-05-11] MEDS: FUROSEMIDE INJ 40 MG/4 ML VIAL IV PUSH (10:47)
--- NOTE | 2021-05-11 15:06 | PCRCNOTE ---
Window of time for administration has passed. See next scheduled administration.
[2021-05-12] VITALS (9 sets, daily range): BP systolic 119–138; BP diastolic 74–97; PULSE 76–102; RESP 16–20; TEMP 35.5–36.7; O2SAT 90–97
--- NOTE | 2021-05-12 | ECHO_ITS ---
Patient Info Name: Thompson Salcedo Age: 65 years : 1955 Gender: Male Ht: 74 in Wt: 208 lbs BSA: 2.23 m2 HR: 75 bpm BP: 128 / 81 mmHg Heart Rhythm: Sinus Rhythm Exam Date: 05/12/2021 1:31 PM Exam Location: [facility] Patient Status: Inpatient Admit Date: 04/28/2021 Staff Ordering Physician: Jose Juan Cross [employer]: Santino Moeller RDCS, RT Attending Provider: Asiya Ramsay PA-C Referring Physician: Tay GARIBAY; Exam Type: CA echo doppler color flow Study Info Indications J96.91 - Respiratory failure, unspecified with hypoxia Complete two-dimensional, color flow and Doppler transthoracic echocardiogram is performed. Strain analysis performed. Summary 1. Complete two-dimensional, color flow and Doppler transthoracic echocardiogram is performed. 2. Left ventricular chamber dimension is normal. 3. Left ventricular systolic function is normal, estimated at 65-70%. 4. Mildly sclerotic aortic valve, no significant valve disease. Left Ventricle Left ventricular chamber dimension is normal. Left ventricular systolic function is normal, estimated at 65-70%. The left ventricular diastolic function is normal. Right Ventricle Right ventricular chamber dimension is normal. Right Atria Right atrial chamber dimension is normal. Aortic Valve The aortic valve is trileaflet. There is mild aortic valve sclerosis. Pulmonic Valve The pulmonic valve is normal. Mitral Valve The mitral valve has normal leaflets. Tricuspid Valve The tricuspid valve leaflets are normal. Pericardium/Pleural The pericardium appears normal. Aorta The aortic root size at the sinus of Valsalva is normal. Left Ventricular Outflow Tract Name Value Normal LVOT 2D LVOT Diameter 2.2 cm LVOT Doppler LVOT Peak Gradient 9 mmHg LVOT Mean Gradient 4 mmHg LVOT VTI 24 cm LVOT VTI/AV VTI Ratio 0.9 LVOT Stroke Volume 94 ml LVOT CO 8.0 l/min LVOT CI 3.6 l/min/m2 Mitral Valve Name Value Normal MV Doppler MV Decel [place] 264 cm/s2 MV PHT 72 ms MV Area (PHT) 3.1 cm2 4.0-5.0 MV Diastolic Function MV E Peak Velocity 65 cm/s MV A Peak Velocity 78 cm/s MV E/A 0.8 MV Decel Time 248 ms MV Annular TDI MV E/e' (Septal) 6.8 <=8.0 MV E/e' (Lateral)
[2021-05-12] MEDS: ALBUTEROL SULFATE (*SP) INHALER 4 PUFF INHALATION ×4 (03:33→21:47)
[2021-05-12] MEDS: CENTRAL LINE FLUSH 10 ML IV PUSH ×4 (04:24→21:11)
[2021-05-12] MEDS: WATER FOR IRRIGATION, STERILE 1,000 ML BOTTLE 1000 ML (04:24)
[2021-05-12 06:16] LABS: Basophils Percent Auto 0.3 % (0.2-1.2); Hematocrit 36.2 % (42.0-52.0); Hemoglobin 11.9 g/dL (14.0-18.0); Immature Granulocyte Absolute 0.48 K/mm3 (0.00-0.031); Immature Granulocyte Percent A 4.1 % (0-0.5); Lymphocytes Absolute Auto 0.34 K/mm3 (0.9-3.2); Lymphocytes Percent Auto 2.9 % (18.3-44.2); Mean Corpuscular HGB Conc 32.9 g/dl (32-36); Mean Corpuscular Hemoglobin 30.7 pg (26-34); Mean Corpuscular Volume 93.5 fl (80-100); Mean Platelet Volume 10.8 fl (7.4-10.4); Monocytes Absolute Auto 0.9 K/mm3 (0.1-0.6); Neutrophils Absolute Auto 9.8 K/mm3 (1.3-6.7); Neutrophils Percent Auto 84.7 % (45.5-73.1); Nucleated Red Blood Cells Perc 0.2 % (0.0-0.2); Platelet Count Result 79 k/mm3 (150-375); Red Blood Count 3.87 M/mm3 (4.6-6.20); Red Cell Distribution Width 14.7 % (11.5-14.5); White Blood Count 11.6 K/mm3 (4.5-10.0)
[2021-05-12 06:29] LABS: NT Pro B Type Natriuretic Pept 286 pg/mL (5-100)
[2021-05-12 06:31] LABS: Alanine Aminotransferase 66 U/L (4-50); Albumin Level 2.8 g/dL (3.5-5.1); Alkaline Phosphatase 64 U/L (38-126); Anion Gap 6 mmol/L (8-16); Aspartate Amino Transferase 30 U/L (17-59); Bilirubin,Total 0.2 mg/dL (0.2-1.3); Blood Urea Nitrogen 35 mg/dL (9-20); CRP < 0.5 mg/dL (<1.0); Carbon Dioxide 25 mmol/L (22-30); Chloride 103 mmol/L (98-107); Estimated CRCL calculation 54 ml/min; Estimated Glomerular Filt Rate > 60; Glucose 228 mg/dL (65-110); Lactate Dehydrogenase 861 U/L (313-618); Magnesium 2.3 mg/dL (1.6-2.3); Potassium 4.6 mmol/L (3.4-5.0); Sodium 134 mmol/L (137-145)
[2021-05-12 06:32] LABS: D Dimer 3.74 ug/mL (<0.48)
--- NOTE | 2021-05-12 09:00 | P.PNIM_ITS ---
Progress Note: A&P Assessment and Plan (1) Acute respiratory failure with hypoxia: Code(s): J96.01 - Acute respiratory failure with hypoxia Status: Acute Assessment and Plan: * Secondary to COVID-19 pneumonia. PE unlikely based on clinical picture, CTA reviewed with no evidence of PE in main pulmonary artery or left or right main pulmonary arteries. D-dimer is elevated at 2, which can be explained by acute illness with COVID-19. * Continue supplemental oxygen wean as tolerated * Currently on 10L high flow cannula * Sating 90-93% * Titrate and wean oxygen as needed * BNP 256 * Lasix 40mg IV daily, for crackles in the right lower lobe and increase pedal edema (2) Pneumonia due to COVID-19 virus: Code(s): U07.1 - COVID-19; J12.82 - Pneumonia due to coronavirus disease 2018 Status: Acute Assessment and Plan: * Patient had COVID exposure 04/17/2021. Positive test at this facility 04/21/2021. CTA showed worsened diffuse lung disease consistent with COVID 19 pneumonia. * Remdesivir 10 day treatment ended 05/07/21 * Restart Decadron 6mg IV BID * ALT is mildly elevated (66), though still acceptable range for continuation of remdesivir. Monitor closely * HIV viral load undetectable * Continue to hold off on baricitinib * Supportive care to include bronchodilators, expectorants, antipyretics, incentive spirometry * Supplemental O2 wean as tolerate * Trend acute phase reactants intermittently; overall improving * Continue isolation precautions * Inflammatory markers elevated: ferritin 477, LDH 861, CRP <0.5 * repeat chest xray Diffuse opacities throughout all lung zones, likely COVID 19 pneumonia superimposed on a background of emphysema (05/08/21) (3) COPD (chronic obstructive pulmonary disease): Qualifiers: COPD type: COPD with acute lower respiratory infection Qualified Code(s): J44.0 - Chronic obstructive pulmonary disease with (acute) lower respiratory infection Code(s): J44.9 - Chronic obstructive pulmonary disease, unspecified Status: Acute Assessment and Plan: * Severe emphysema noted on CTA. * underlying COPD puts him at risk from more severe illness related to COVID-19. * Not in acute exacerbation * Albuterol inhalation * Continue with albuterol MDI q.6 hours scheduled * Probably will be a good idea to start him on some inhalers for COPD (4) Transaminitis: Code(s): R74.01 - Elevation of levels of liver transaminase levels Status: Acute Assessment and Plan: * Likely related to acute viral illness vs chronic hepatitis * Continue to monitor labs daily. Close monitoring with remdesivir therapy. * LFTs improving. AST levels normalized. * ALT still a bit elevated (5) Elevated d-dimer: Code(s): R79.89 - Other specified abnormal findings of blood chemistry Status: Acute Assessment and Plan: * D-dimer 3.74 * As noted above, likely related to acute illness with COVID-19. * Please see above (6) Hyperkalemia: Code(s): E87.5 - Hyperkalemia Status: Acute Assessment and Plan: * Potassium was mildly elevated up to 5.5 on 05/03 * improved with one dose of Kayexalate. * Potassium levels stable today at 4.6 * Low potassium diet * Trend labs (7) Thrombocytopenia associated with AIDS: Code(s): B20 - Human immunodeficiency virus [HIV] disease; D69.59 - Other secondary thrombocytopenia Status: Acute Assessment and Plan: * Platelet count
--- NOTE | 2021-05-12 09:00 | PM.IMPN ---
Progress Note: A&P Assessment and Plan (1) Acute respiratory failure with hypoxia: Code(s): J96.01 - Acute respiratory failure with hypoxia Status: Acute Assessment and Plan: Secondary to COVID-19 pneumonia. PE unlikely based on clinical picture, CTA reviewed with no evidence of PE in main pulmonary artery or left or right main pulmonary arteries. D-dimer is elevated at 2, which can be explained by acute illness with COVID-19. Continue supplemental oxygen wean as tolerated Currently on 10L high flow cannula Sating 90-93% Titrate and wean oxygen as needed BNP 256 Lasix 40mg IV daily, for crackles in the right lower lobe and increase pedal edema (2) Pneumonia due to COVID-19 virus: Code(s): U07.1 - COVID-19; J12.82 - Pneumonia due to coronavirus disease 2018 Status: Acute Assessment and Plan: Patient had COVID exposure 04/17/2021. Positive test at this facility 04/21/2021. CTA showed worsened diffuse lung disease consistent with COVID 19 pneumonia. Remdesivir 10 day treatment ended 05/07/21 Restart Decadron 6mg IV BID ALT is mildly elevated (66), though still acceptable range for continuation of remdesivir. Monitor closely HIV viral load undetectable Continue to hold off on baricitinib Supportive care to include bronchodilators, expectorants, antipyretics, incentive spirometry Supplemental O2 wean as tolerate Trend acute phase reactants intermittently; overall improving Continue isolation precautions Inflammatory markers elevated: ferritin 477, LDH 861, CRP <0.5 repeat chest xray Diffuse opacities throughout all lung zones, likely COVID 19 pneumonia superimposed on a background of emphysema (05/08/21) (3) COPD (chronic obstructive pulmonary disease): Qualifiers: COPD type: COPD with acute lower respiratory infection Qualified Code(s): J44.0 - Chronic obstructive pulmonary disease with (acute) lower respiratory infection Code(s): J44.9 - Chronic obstructive pulmonary disease, unspecified Status: Acute Assessment and Plan: Severe emphysema noted on CTA. underlying COPD puts him at risk from more severe illness related to COVID-19. Not in acute exacerbation Albuterol inhalation Continue with albuterol MDI q.6 hours scheduled Probably will be a good idea to start him on some inhalers for COPD (4) Transaminitis: Code(s): R74.01 - Elevation of levels of liver transaminase levels Status: Acute Assessment and Plan: Likely related to acute viral illness vs chronic hepatitis Continue to monitor labs daily. Close monitoring with remdesivir therapy. LFTs improving. AST levels normalized. ALT still a bit elevated (5) Elevated d-dimer: Code(s): R79.89 - Other specified abnormal findings of blood chemistry Status: Acute Assessment and Plan: D-dimer 3.74 As noted above, likely related to acute illness with COVID-19. Please see above (6) Hyperkalemia: Code(s): E87.5 - Hyperkalemia Status: Acute Assessment and Plan: Potassium was mildly elevated up to 5.5 on 05/03 improved with one dose of Kayexalate. Potassium levels stable today at 4.6 Low potassium diet Trend labs (7) Thrombocytopenia associated with AIDS: Code(s): B20 - Human immunodeficiency virus [HIV] disease; D69.59 - Other secondary thrombocytopenia Status: Acute Assessment and Plan: Platelet count mildly low, 79 today. Lovenox was then placed on hold, resume as appropriate Monitor platelet count closely old Lovenox if platelets <100k. (8) HIV (human immunodeficiency virus infection): Code(s): B20 - Human immunodeficiency virus [HIV] disease Status: Acute Assessment and Plan: Positive since 1982 Continue home medications Patient stated that he is undetectable but is not always compliant with medications CD4 still pend
[2021-05-12] MEDS: guaiFENesin 12 HR 600 MG TABCR PO ×2 (09:18→21:10)
[2021-05-12] MEDS: PANTOPRAZOLE 40 MG TABLET PO ×2 (09:18→21:10)
[2021-05-12] MEDS: amLODIPine BESYLATE 5 MG TABLET 10 MG PO (09:18)
[2021-05-12] MEDS: FUROSEMIDE INJ 40 MG/4 ML VIAL IV PUSH ×2 (09:18→17:04)
--- NOTE | 2021-05-12 11:44 | PCNWS ---
Weekly nutritional screen. Patient is tolerating current diet with adequate intake. No weight loss reported. No nutritional needs at this time.
[2021-05-13] VITALS (11 sets, daily range): BP systolic 124–153; BP diastolic 73–91; PULSE 83–107; RESP 16–20; TEMP 36.1–36.7; O2SAT 90–94
[2021-05-13] MEDS: ALBUTEROL SULFATE (*SP) INHALER 4 PUFF INHALATION ×4 (02:17→22:13)
[2021-05-13 06:02] LABS: Basophils Percent Auto 0.2 % (0.2-1.2); Hematocrit 38.2 % (42.0-52.0); Hemoglobin 12.5 g/dL (14.0-18.0); Immature Granulocyte Absolute 0.48 K/mm3 (0.00-0.031); Immature Granulocyte Percent A 3.6 % (0-0.5); Lymphocytes Absolute Auto 0.39 K/mm3 (0.9-3.2); Lymphocytes Percent Auto 2.9 % (18.3-44.2); Mean Corpuscular HGB Conc 32.7 g/dl (32-36); Mean Corpuscular Volume 94.8 fl (80-100); Mean Platelet Volume 11.5 fl (7.4-10.4); Monocytes Absolute Auto 0.9 K/mm3 (0.1-0.6); Monocytes Percent Auto 6.4 % (2.6-8.5); Neutrophils Absolute Auto 11.5 K/mm3 (1.3-6.7); Neutrophils Percent Auto 86.9 % (45.5-73.1); Nucleated Red Blood Cells Perc 0.2 % (0.0-0.2); Platelet Count Result 83 k/mm3 (150-375); Red Blood Count 4.03 M/mm3 (4.6-6.20); White Blood Count 13.3 K/mm3 (4.5-10.0)
[2021-05-13 06:29] LABS: Alanine Aminotransferase 75 U/L (4-50); Alkaline Phosphatase 79 U/L (38-126); Anion Gap 6 mmol/L (8-16); Aspartate Amino Transferase 31 U/L (17-59); Bilirubin,Total 0.4 mg/dL (0.2-1.3); Blood Urea Nitrogen 38 mg/dL (9-20); Calcium 7.7 mg/dL (8.4-10.2); Carbon Dioxide 26 mmol/L (22-30); Chloride 102 mmol/L (98-107); Estimated CRCL calculation 48 ml/min; Estimated Glomerular Filt Rate 53; Glucose 320 mg/dL (65-110); Magnesium 2.4 mg/dL (1.6-2.3); Potassium 4.6 mmol/L (3.4-5.0); Sodium 134 mmol/L (137-145)
[2021-05-13] MEDS: guaiFENesin 12 HR 600 MG TABCR PO ×2 (08:19→20:20)
[2021-05-13] MEDS: PANTOPRAZOLE 40 MG TABLET PO ×2 (08:19→20:20)
[2021-05-13] MEDS: CENTRAL LINE FLUSH 10 ML IV PUSH ×3 (08:19→20:21)
[2021-05-13] MEDS: amLODIPine BESYLATE 5 MG TABLET 10 MG PO (08:19)
[2021-05-13] MEDS: FUROSEMIDE INJ 40 MG/4 ML VIAL IV PUSH ×2 (08:20→17:29)
--- NOTE | 2021-05-13 08:30 | PM.IMPN ---
Progress Note: A&P Assessment and Plan (1) Acute respiratory failure with hypoxia: Code(s): J96.01 - Acute respiratory failure with hypoxia Status: Acute Assessment and Plan: Secondary to COVID-19 pneumonia. PE unlikely based on clinical picture, CTA reviewed with no evidence of PE in main pulmonary artery or left or right main pulmonary arteries. D-dimer is elevated at 3.74, which can be explained by acute illness with COVID-19. Continue supplemental oxygen wean as tolerated Currently between 6-10L high flow cannula Sating 90-93% Titrate and wean oxygen as needed BNP 256 Lasix 40mg IV daily, for crackles in the right lower lobe and increase pedal edema (2) Pneumonia due to COVID-19 virus: Code(s): U07.1 - COVID-19; J12.82 - Pneumonia due to coronavirus disease 2018 Status: Acute Assessment and Plan: Patient had COVID exposure 04/17/2021. Positive test at this facility 04/21/2021. CTA showed worsened diffuse lung disease consistent with COVID 19 pneumonia. Remdesivir 10 day treatment ended 05/07/21 Restart Decadron 6mg IV BID ALT is mildly elevated (75) continue to trend HIV viral load undetectable Continue to hold off on baricitinib Supportive care to include bronchodilators, expectorants, antipyretics, incentive spirometry Supplemental O2 wean as tolerate Trend acute phase reactants intermittently; overall improving Continue isolation precautions Inflammatory markers elevated: ferritin 477, LDH 861, CRP <0.5 05/12/21 will recheck in the am repeat chest xray Diffuse opacities throughout all lung zones, likely COVID 19 pneumonia superimposed on a background of emphysema (05/08/21), repeat in the am (3) COPD (chronic obstructive pulmonary disease): Qualifiers: COPD type: COPD with acute lower respiratory infection Qualified Code(s): J44.0 - Chronic obstructive pulmonary disease with (acute) lower respiratory infection Code(s): J44.9 - Chronic obstructive pulmonary disease, unspecified Status: Acute Assessment and Plan: Severe emphysema noted on CTA. underlying COPD puts him at risk from more severe illness related to COVID-19. Not in acute exacerbation Albuterol inhalation Continue with albuterol MDI q.6 hours scheduled Probably will be a good idea to start him on some inhalers for COPD (4) Transaminitis: Code(s): R74.01 - Elevation of levels of liver transaminase levels Status: Acute Assessment and Plan: Likely related to acute viral illness vs chronic hepatitis Continue to monitor labs daily LFTs improving. AST levels normalized. ALT still a bit elevated (5) Elevated d-dimer: Code(s): R79.89 - Other specified abnormal findings of blood chemistry Status: Acute Assessment and Plan: D-dimer 3.74 05/12/21 As noted above, likely related to acute illness with COVID-19. Please see above (6) Hyperkalemia: Code(s): E87.5 - Hyperkalemia Status: Acute Assessment and Plan: Seems to be resolved will continue to monitor Potassium was mildly elevated up to 5.5 on 05/03 improved with one dose of Kayexalate. Potassium levels stable today at 4.6 Low potassium diet Trend labs (7) Thrombocytopenia associated with AIDS: Code(s): B20 - Human immunodeficiency virus [HIV] disease; D69.59 - Other secondary thrombocytopenia Status: Acute Assessment and Plan: Platelet count mildly low, 83 today. Lovenox was then placed on hold, resume as appropriate Monitor platelet count closely Continue to hold Lovenox if platelets <100k. (8) HIV (human immunodeficiency virus infection): Code(s): B20 - Human immunodeficiency virus [HIV] disease Status: Acute Assessment and Plan: Positive since 1982 Continue home medications Patient stated that he is undetectable but is not always compliant with m
--- NOTE | 2021-05-13 08:30 | P.PNIM_ITS ---
Progress Note: A&P Assessment and Plan (1) Acute respiratory failure with hypoxia: Code(s): J96.01 - Acute respiratory failure with hypoxia Status: Acute Assessment and Plan: * Secondary to COVID-19 pneumonia. PE unlikely based on clinical picture, CTA reviewed with no evidence of PE in main pulmonary artery or left or right main pulmonary arteries. D-dimer is elevated at 3.74, which can be explained by acu te illness with COVID-19. * Continue supplemental oxygen wean as tolerated * Currently between 6-10L high flow cannula * Sating 90-93% * Titrate and wean oxygen as needed * BNP 256 * Lasix 40mg IV daily, for crackles in the right lower lobe and increase pedal edema (2) Pneumonia due to COVID-19 virus: Code(s): U07.1 - COVID-19; J12.82 - Pneumonia due to coronavirus disease 2018 Status: Acute Assessment and Plan: * Patient had COVID exposure 04/17/2021. Positive test at this facility 04/21/2021. CTA showed worsened diffuse lung disease consistent with COVID 19 pneumonia. * Remdesivir 10 day treatment ended 05/07/21 * Restart Decadron 6mg IV BID * ALT is mildly elevated (75) continue to trend * HIV viral load undetectable * Continue to hold off on baricitinib * Supportive care to include bronchodilators, expectorants, antipyretics, incentive spirometry * Supplemental O2 wean as tolerate * Trend acute phase reactants intermittently; overall improving * Continue isolation precautions * Inflammatory markers elevated: ferritin 477, LDH 861, CRP <0.5 05/12/21 will recheck in the am * repeat chest xray Diffuse opacities throughout all lung zones, likely COVID 19 pneumonia superimposed on a background of emphysema (05/08/21), repeat in the am (3) COPD (chronic obstructive pulmonary disease): Qualifiers: COPD type: COPD with acute lower respiratory infection Qualified Code(s): J44.0 - Chronic obstructive pulmonary disease with (acute) lower respiratory infection Code(s): J44.9 - Chronic obstructive pulmonary disease, unspecified Status: Acute Assessment and Plan: * Severe emphysema noted on CTA. * underlying COPD puts him at risk from more severe illness related to COVID-19. * Not in acute exacerbation * Albuterol inhalation * Continue with albuterol MDI q.6 hours scheduled * Probably will be a good idea to start him on some inhalers for COPD (4) Transaminitis: Code(s): R74.01 - Elevation of levels of liver transaminase levels Status: Acute Assessment and Plan: * Likely related to acute viral illness vs chronic hepatitis * Continue to monitor labs daily * LFTs improving. AST levels normalized. * ALT still a bit elevated (5) Elevated d-dimer: Code(s): R79.89 - Other specified abnormal findings of blood chemistry Status: Acute Assessment and Plan: * D-dimer 3.74 05/12/21 * As noted above, likely related to acute illness with COVID-19. * Please see above (6) Hyperkalemia: Code(s): E87.5 - Hyperkalemia Status: Acute Assessment and Plan: * Seems to be resolved will continue to monitor * Potassium was mildly elevated up to 5.5 on 05/03 * improved with one dose of Kayexalate. * Potassium levels stable today at 4.6 * Low potassium diet * Trend labs (7) Thrombocytopenia associated with AIDS: Code(s): B20 - Human immunodeficiency virus [HIV] disease; D69.59 - Other secondary thrombocytopenia Status: Acute Assessment and P
[2021-05-13 12:01] LABS: Glucose Point of Care 143 mg/dl (65-105)
[2021-05-13 16:44] LABS: Glucose Point of Care 165 mg/dl (65-105)
[2021-05-13 23:35] LABS: Glucose Point of Care 157 mg/dl (65-105)
[2021-05-14] VITALS (11 sets, daily range): BP systolic 115–136; BP diastolic 76–98; PULSE 78–98; RESP 12–22; TEMP 36.3–37.1; O2SAT 87–99
[2021-05-14] MEDS: ALBUTEROL SULFATE (*SP) INHALER 4 PUFF INHALATION ×3 (03:24→21:41)
[2021-05-14 06:44] LABS: Basophils Absolute Auto 0.1 K/mm3 (0.0-0.1); Basophils Percent Auto 0.3 % (0.2-1.2); Hematocrit 38.5 % (42.0-52.0); Immature Granulocyte Absolute 0.65 K/mm3 (0.00-0.031); Immature Granulocyte Percent A 4.3 % (0-0.5); Immature Platelet Fraction Pct 8.6 % (0.9-11.2); Lymphocytes Absolute Auto 0.49 K/mm3 (0.9-3.2); Lymphocytes Percent Auto 3.2 % (18.3-44.2); Mean Corpuscular HGB Conc 33.8 g/dl (32-36); Mean Corpuscular Hemoglobin 30.9 pg (26-34); Mean Corpuscular Volume 91.4 fl (80-100); Mean Platelet Volume 10.2 fl (7.4-10.4); Monocytes Percent Auto 6.4 % (2.6-8.5); Neutrophils Percent Auto 85.8 % (45.5-73.1); Platelet Count Result 76 k/mm3 (150-375); Red Blood Count 4.21 M/mm3 (4.6-6.20); White Blood Count 15.2 K/mm3 (4.5-10.0)
[2021-05-14 06:58] LABS: Alanine Aminotransferase 107 U/L (4-50); Albumin Level 3.4 g/dL (3.5-5.1); Alkaline Phosphatase 65 U/L (38-126); Anion Gap 4 mmol/L (8-16); Aspartate Amino Transferase 41 U/L (17-59); Bilirubin,Total 0.4 mg/dL (0.2-1.3); Blood Urea Nitrogen 45 mg/dL (9-20); CRP < 0.5 mg/dL (<1.0); Carbon Dioxide 31 mmol/L (22-30); Chloride 98 mmol/L (98-107); Estimated CRCL calculation 43 ml/min; Estimated Glomerular Filt Rate 46; Glucose 145 mg/dL (65-110); Lactate Dehydrogenase 1072 U/L (313-618); Magnesium 2.3 mg/dL (1.6-2.3); Potassium 4.5 mmol/L (3.4-5.0); Sodium 133 mmol/L (137-145)
[2021-05-14] MEDS: CENTRAL LINE FLUSH 10 ML IV PUSH ×3 (07:19→22:17)
[2021-05-14 07:24] LABS: D Dimer 5.33 ug/mL (<0.48)
[2021-05-14 07:39] LABS: Hemoglobin A1C 6.7 % (<5.7)
[2021-05-14] MEDS: guaiFENesin 12 HR 600 MG TABCR PO ×2 (10:17→22:17)
[2021-05-14] MEDS: PANTOPRAZOLE 40 MG TABLET PO ×2 (10:17→22:17)
[2021-05-14] MEDS: FUROSEMIDE INJ 40 MG/4 ML VIAL IV PUSH ×2 (10:17→17:39)
[2021-05-14] MEDS: amLODIPine BESYLATE 5 MG TABLET 10 MG PO (10:18)
--- NOTE | 2021-05-14 10:48 | PM.IMPN ---
Progress Note: A&P Assessment and Plan (1) Acute respiratory failure with hypoxia: Code(s): J96.01 - Acute respiratory failure with hypoxia Status: Acute Assessment and Plan: Secondary to COVID-19 pneumonia. PE unlikely based on clinical picture, CTA reviewed with no evidence of PE in main pulmonary artery or left or right main pulmonary arteries. Continue supplemental oxygen with goal sats 90% or above. Wean as tolerated Currently between 6-10L high flow cannula. He is occasionally removing his nasal cannula and I educated him on importance of keeping this on at all times to allow for improvement He did require up to 60 L/min on Airvo for several days but has been slowly weaned May also have component of volume overload for which he has been diuresed with IV lasix. CXR cannot exclude mild pulmonary edema. BNP not elevated. Transition to 40 mg PO lasix. (2) Pneumonia due to COVID-19 virus: Code(s): U07.1 - COVID-19; J12.82 - Pneumonia due to coronavirus disease 2018 Status: Acute Assessment and Plan: Patient had COVID exposure 04/17/2021. Positive test at this facility 04/21/2021. CTA showed worsened diffuse lung disease consistent with COVID 19 pneumonia. Remdesivir 10 day treatment ended 05/07/21 Continue dexamethasone 6 mg BID. Supportive care to include bronchodilators, expectorants, antipyretics, incentive spirometry Supplemental O2 wean as tolerated Continue isolation precautions Repeat CXR today showed few baseline issues with word being of the upper lobes consistent with pneumonia superimposed on severe emphysema Overall, he is improving slowly (3) COPD (chronic obstructive pulmonary disease): Qualifiers: COPD type: COPD with acute lower respiratory infection Qualified Code(s): J44.0 - Chronic obstructive pulmonary disease with (acute) lower respiratory infection Code(s): J44.9 - Chronic obstructive pulmonary disease, unspecified Status: Acute Assessment and Plan: Severe emphysema noted on CTA. Not in acute exacerbation Continue with albuterol MDI q.6 hours scheduled Will benefit from maintenance inhalers prior to discharge (4) Transaminitis: Code(s): R74.01 - Elevation of levels of liver transaminase levels Status: Acute Assessment and Plan: Likely related to acute viral illness vs chronic hepatitis ALT mildly elevated, otherwise levels have normalized Continue to trend (5) Elevated d-dimer: Code(s): R79.89 - Other specified abnormal findings of blood chemistry Status: Acute Assessment and Plan: D-dimer was elevated on presentation. CTA nondiagnostic due to poor contrast bolus timing, though no evidence of PE. Venous Doppler negative for DVT. Low clinical probability for PE and this is likely related to acute illness with COVID-19 No need for further monitoring of D-dimer (6) Hyperkalemia: Code(s): E87.5 - Hyperkalemia Status: Acute Assessment and Plan: Resolved. Continue low-potassium diet (7) Thrombocytopenia: Code(s): D69.6 - Thrombocytopenia, unspecified Status: Acute Assessment and Plan: Platelet count low ranging from 70-90 the past few days This is likely due to COVID-19 May also be related to HIV Lovenox on hold. Proceed with mechanical DVT prophylaxis at this time. Resume Lovenox when platelets >100k Continue to monitor CBC (8) HIV (human immunodeficiency virus infection): Code(s): B20 - Human immunodeficiency virus [HIV] disease Status: Acute Assessment and Plan: Positive since 1982 Continue home medications HIV RNA is undetectable CD4 is pending (9) GERD (gastroesophageal reflux disease): Code(s): K21.9 - Gastro-esophageal reflux disease without esophagitis Status: Acute Assessment and Plan: No complaints today Continue Protonix BID PO Subjective Date/time se
[2021-05-14 12:03] LABS: Glucose Point of Care 222 mg/dl (65-105)
[2021-05-14] MEDS: INSULIN ASPART (*BKC) 100 UNITS/ML SUB-Q (13:41)
[2021-05-14 16:39] LABS: Glucose Point of Care 153 mg/dl (65-105)
--- NOTE | 2021-05-14 17:10 | PCRCNOTE ---
Window of time for administration has passed. See next scheduled administration.
--- NOTE | 2021-05-14 19:37 | PHAR ---
Home medication identified. Tivicay 50mg tablets. [facility]
[2021-05-15] VITALS (8 sets, daily range): BP systolic 108–140; BP diastolic 73–89; PULSE 78–94; RESP 14–20; TEMP 36.2–37.2; O2SAT 91–95
[2021-05-15] MEDS: ALBUTEROL SULFATE (*SP) INHALER 4 PUFF INHALATION ×2 (02:37→13:01)
[2021-05-15] MEDS: CENTRAL LINE FLUSH 10 ML IV PUSH ×3 (06:42→22:14)
[2021-05-15 06:47] LABS: Hematocrit 37.7 % (42.0-52.0); Hemoglobin 12.7 g/dL (14.0-18.0); Immature Platelet Fraction Pct 8.4 % (0.9-11.2); Mean Corpuscular HGB Conc 33.7 g/dl (32-36); Mean Corpuscular Hemoglobin 31.1 pg (26-34); Mean Corpuscular Volume 92.2 fl (80-100); Mean Platelet Volume 11.2 fl (7.4-10.4); Platelet Count Result 64 k/mm3 (150-375); Red Blood Count 4.09 M/mm3 (4.6-6.20); Red Cell Distribution Width 15.3 % (11.5-14.5); White Blood Count 14.9 K/mm3 (4.5-10.0)
[2021-05-15 06:52] LABS: Alanine Aminotransferase 108 U/L (4-50); Albumin Level 3.2 g/dL (3.5-5.1); Alkaline Phosphatase 65 U/L (38-126); Anion Gap 7 mmol/L (8-16); Aspartate Amino Transferase 43 U/L (17-59); Bilirubin,Total 0.6 mg/dL (0.2-1.3); Blood Urea Nitrogen 49 mg/dL (9-20); Calcium 7.9 mg/dL (8.4-10.2); Carbon Dioxide 26 mmol/L (22-30); Chloride 100 mmol/L (98-107); Estimated CRCL calculation 43 ml/min; Estimated Glomerular Filt Rate 46; Glucose 221 mg/dL (65-110); Potassium 5.5 mmol/L (3.4-5.0); Sodium 133 mmol/L (137-145)
[2021-05-15 08:26] LABS: Glucose Point of Care 131 mg/dl (65-105)
[2021-05-15] MEDS: PANTOPRAZOLE 40 MG TABLET PO ×2 (09:05→22:14)
[2021-05-15] MEDS: guaiFENesin 12 HR 600 MG TABCR PO ×2 (09:05→22:14)
[2021-05-15] MEDS: FUROSEMIDE INJ 40 MG/4 ML VIAL IV PUSH (09:05)
--- NOTE | 2021-05-15 11:01 | PCRCNOTE ---
Window of time for administration has passed. See next scheduled administration.
[2021-05-15 12:58] LABS: Glucose Point of Care 245 mg/dl (65-105)
--- NOTE | 2021-05-15 13:31 | P.PNIM_ITS ---
Progress Note: A&P Assessment and Plan (1) Acute respiratory failure with hypoxia: Code(s): J96.01 - Acute respiratory failure with hypoxia Status: Acute Assessment and Plan: Secondary to COVID-19 pneumonia. PE unlikely based on clinical picture, CTA reviewed with no evidence of PE in main pulmonary artery or left or right main pulmonary arteries. * Continue supplemental oxygen with goal sats 90% or above. Wean as tolerated * Currently requiring 6 L per high flow cannula. * He did require up to 60 L/min on Airvo for several days but has been slowly weaned * May also have component of volume overload for which he has been diuresed with IV lasix. CXR cannot exclude mild pulmonary edema. BNP not elevated. Echo shows normal systolic and diastolic function. Continue PO lasix 40 mg daily. ARMAAN hose for edema (2) Pneumonia due to COVID-19 virus: Code(s): U07.1 - COVID-19; J12.82 - Pneumonia due to coronavirus disease 2018 Status: Acute Assessment and Plan: Patient had COVID exposure 04/17/2021. Positive test at this facility 04/21/2021. CTA showed worsened diffuse lung disease consistent with COVID 19 pneumonia. * Remdesivir 10 day treatment ended 05/07/21 * Continue dexamethasone 6 mg BID. * Supportive care to include bronchodilators, expectorants, antipyretics, incentive spirometry * Supplemental O2 wean as tolerated * Continue isolation precautions * Repeat CXR 05/14 showed diffuse lung disease with worsening of the upper lobes consistent with pneumonia superimposed on severe emphysema * Overall, he is improving slowly (3) COPD (chronic obstructive pulmonary disease): Qualifiers: COPD type: COPD with acute lower respiratory infection Qualified Code(s): J44.0 - Chronic obstructive pulmonary disease with (acute) lower respiratory infection Code(s): J44.9 - Chronic obstructive pulmonary disease, unspecified Status: Acute Assessment and Plan: Severe emphysema noted on CTA. Not in acute exacerbation * Continue with albuterol MDI q.6 hours prn * Will benefit from maintenance inhalers prior to discharge (4) Transaminitis: Code(s): R74.01 - Elevation of levels of liver transaminase levels Status: Acute Assessment and Plan: Likely related to acute viral illness vs chronic hepatitis * ALT mildly elevated, otherwise levels have normalized * Continue to trend (5) Elevated d-dimer: Code(s): R79.89 - Other specified abnormal findings of blood chemistry Status: Acute Assessment and Plan: D-dimer was elevated on presentation. CTA nondiagnostic due to poor contrast bolus timing, though no evidence of PE. Venous Doppler negative for DVT. Low clinical probability for PE and this is likely related to acute illness with COVID-19 * No need for further monitoring of D-dimer (6) Hyperkalemia: Code(s): E87.5 - Hyperkalemia Status: Acute Assessment and Plan: Potassium is 5.5 today * Continue low-potassium diet * Recheck potassium level this afternoon * If remaining elevated, will administer 1 dose Kayexalate and monitor potassium levels closely (7) Thrombocytopenia: Code(s): D69.6 - Thrombocytopenia, unspecified Status: Acute Assessment and Plan: Platelet count low ranging from 70-90 the past few days. 64k today * This is likely due to COVID-19 * May also be related to HIV * Lovenox on hold. Proceed with mechanical DVT prophylaxis at this time. Resume Lovenox when platelets >100k * Continue to monitor CBC
--- NOTE | 2021-05-15 13:31 | PM.IMPN ---
Progress Note: A&P Assessment and Plan (1) Acute respiratory failure with hypoxia: Code(s): J96.01 - Acute respiratory failure with hypoxia Status: Acute Assessment and Plan: Secondary to COVID-19 pneumonia. PE unlikely based on clinical picture, CTA reviewed with no evidence of PE in main pulmonary artery or left or right main pulmonary arteries. Continue supplemental oxygen with goal sats 90% or above. Wean as tolerated Currently requiring 6 L per high flow cannula. He did require up to 60 L/min on Airvo for several days but has been slowly weaned May also have component of volume overload for which he has been diuresed with IV lasix. CXR cannot exclude mild pulmonary edema. BNP not elevated. Echo shows normal systolic and diastolic function. Continue PO lasix 40 mg daily. ARMAAN hose for edema (2) Pneumonia due to COVID-19 virus: Code(s): U07.1 - COVID-19; J12.82 - Pneumonia due to coronavirus disease 2018 Status: Acute Assessment and Plan: Patient had COVID exposure 04/17/2021. Positive test at this facility 04/21/2021. CTA showed worsened diffuse lung disease consistent with COVID 19 pneumonia. Remdesivir 10 day treatment ended 05/07/21 Continue dexamethasone 6 mg BID. Supportive care to include bronchodilators, expectorants, antipyretics, incentive spirometry Supplemental O2 wean as tolerated Continue isolation precautions Repeat CXR 05/14 showed diffuse lung disease with worsening of the upper lobes consistent with pneumonia superimposed on severe emphysema Overall, he is improving slowly (3) COPD (chronic obstructive pulmonary disease): Qualifiers: COPD type: COPD with acute lower respiratory infection Qualified Code(s): J44.0 - Chronic obstructive pulmonary disease with (acute) lower respiratory infection Code(s): J44.9 - Chronic obstructive pulmonary disease, unspecified Status: Acute Assessment and Plan: Severe emphysema noted on CTA. Not in acute exacerbation Continue with albuterol MDI q.6 hours prn Will benefit from maintenance inhalers prior to discharge (4) Transaminitis: Code(s): R74.01 - Elevation of levels of liver transaminase levels Status: Acute Assessment and Plan: Likely related to acute viral illness vs chronic hepatitis ALT mildly elevated, otherwise levels have normalized Continue to trend (5) Elevated d-dimer: Code(s): R79.89 - Other specified abnormal findings of blood chemistry Status: Acute Assessment and Plan: D-dimer was elevated on presentation. CTA nondiagnostic due to poor contrast bolus timing, though no evidence of PE. Venous Doppler negative for DVT. Low clinical probability for PE and this is likely related to acute illness with COVID-19 No need for further monitoring of D-dimer (6) Hyperkalemia: Code(s): E87.5 - Hyperkalemia Status: Acute Assessment and Plan: Potassium is 5.5 today Continue low-potassium diet Recheck potassium level this afternoon If remaining elevated, will administer 1 dose Kayexalate and monitor potassium levels closely (7) Thrombocytopenia: Code(s): D69.6 - Thrombocytopenia, unspecified Status: Acute Assessment and Plan: Platelet count low ranging from 70-90 the past few days. 64k today This is likely due to COVID-19 May also be related to HIV Lovenox on hold. Proceed with mechanical DVT prophylaxis at this time. Resume Lovenox when platelets >100k Continue to monitor CBC Consider hematology consult if further worsening (8) HIV (human immunodeficiency virus infection): Code(s): B20 - Human immunodeficiency virus [HIV] disease Status: Acute Assessment and Plan: Positive since 1982 Continue home medications HIV RNA is undetectable CD4 is pending (9) GERD (gastroesophageal reflux disease): Code(s): K21.9 - Gastro-esophageal reflux disease wit
[2021-05-15] MEDS: INSULIN ASPART (*BKC) 100 UNITS/ML SUB-Q (14:10)
[2021-05-15 14:29] LABS: Potassium 4.2 mmol/L (3.4-5.0)
[2021-05-15 18:28] LABS: Glucose Point of Care 139 mg/dl (65-105)
[2021-05-15 21:01] LABS: Glucose Point of Care 296 mg/dl (65-105)
[2021-05-16] VITALS (8 sets, daily range): BP systolic 114–136; BP diastolic 66–89; PULSE 86–94; RESP 14–20; TEMP 36.6–36.9; O2SAT 90–100
[2021-05-16] MEDS: CENTRAL LINE FLUSH 10 ML IV PUSH ×3 (06:00→21:06)
[2021-05-16 07:00] LABS: Hematocrit 41.4 % (42.0-52.0); Hemoglobin 13.7 g/dL (14.0-18.0); Immature Platelet Fraction Pct 9.7 % (0.9-11.2); Mean Corpuscular HGB Conc 33.1 g/dl (32-36); Mean Corpuscular Hemoglobin 31.4 pg (26-34); Mean Platelet Volume 11.7 fl (7.4-10.4); Platelet Count Result 70 k/mm3 (150-375); Red Blood Count 4.36 M/mm3 (4.6-6.20); Red Cell Distribution Width 15.8 % (11.5-14.5); White Blood Count 17.1 K/mm3 (4.5-10.0)
[2021-05-16 07:09] LABS: Alanine Aminotransferase 132 U/L (4-50); Albumin Level 3.4 g/dL (3.5-5.1); Alkaline Phosphatase 77 U/L (38-126); Anion Gap 5 mmol/L (8-16); Aspartate Amino Transferase 42 U/L (17-59); Bilirubin,Total 0.4 mg/dL (0.2-1.3); Blood Urea Nitrogen 45 mg/dL (9-20); Calcium 8.4 mg/dL (8.4-10.2); Carbon Dioxide 28 mmol/L (22-30); Chloride 101 mmol/L (98-107); Estimated CRCL calculation 43 ml/min; Estimated Glomerular Filt Rate 46; Glucose 162 mg/dL (65-110); Potassium 4.3 mmol/L (3.4-5.0); Sodium 134 mmol/L (137-145)
[2021-05-16 08:07] LABS: Glucose Point of Care 130 mg/dl (65-105)
[2021-05-16] MEDS: amLODIPine BESYLATE 5 MG TABLET 10 MG PO (08:22)
[2021-05-16] MEDS: FUROSEMIDE 40 MG TABLET PO (08:22)
[2021-05-16] MEDS: guaiFENesin 12 HR 600 MG TABCR PO ×2 (08:22→21:06)
[2021-05-16] MEDS: PANTOPRAZOLE 40 MG TABLET PO ×2 (08:22→21:06)
[2021-05-16 11:41] LABS: Glucose Point of Care 175 mg/dl (65-105)
--- NOTE | 2021-05-16 12:32 | P.PNIM_ITS ---
Progress Note: A&P Assessment and Plan (1) Acute respiratory failure with hypoxia: Code(s): J96.01 - Acute respiratory failure with hypoxia Status: Acute Assessment and Plan: Secondary to COVID-19 pneumonia. PE unlikely based on clinical picture, CTA reviewed with no evidence of PE in main pulmonary artery or left or right main pulmonary arteries. * Continue supplemental oxygen with goal sats 90% or above. Wean as tolerated * Currently requiring 5 L per high flow cannula. * He did require up to 60 L/min on Airvo for several days but has been slowly weaned * May also have been some component of volume overload for which he has been diuresed with IV lasix. CXR cannot exclude mild pulmonary edema. BNP not elevated. Echo shows normal systolic and diastolic function. (2) Pneumonia due to COVID-19 virus: Code(s): U07.1 - COVID-19; J12.82 - Pneumonia due to coronavirus disease 2018 Status: Acute Assessment and Plan: Patient had COVID exposure 04/17/2021. Positive test at this facility 04/21/2021. CTA showed worsened diffuse lung disease consistent with COVID 19 pneumonia. * Remdesivir 10 day treatment ended 05/07/21 * Continue dexamethasone 6 mg, wean to once daily * Supportive care to include bronchodilators, expectorants, antipyretics, rebekah ntive spirometry * Continue supplemental O2 and wean as tolerated * Continue isolation precautions * Repeat CXR 05/14 showed diffuse lung disease with worsening of the upper lobes consistent with pneumonia superimposed on severe emphysema * Continues to slowly improve (3) COPD (chronic obstructive pulmonary disease): Qualifiers: COPD type: COPD with acute lower respiratory infection Qualified Code(s): J44.0 - Chronic obstructive pulmonary disease with (acute) lower respir atory infection Code(s): J44.9 - Chronic obstructive pulmonary disease, unspecified Status: Acute Assessment and Plan: Severe emphysema noted on CTA. Not in acute exacerbation * Continue with albuterol MDI q.6 hours prn * Will benefit from maintenance inhalers prior to discharge (4) Transaminitis: Code(s): R74.01 - Elevation of levels of liver transaminase levels Status: Acute Assessment and Plan: Likely related to acute viral illness vs chronic hepatitis * ALT elevated, otherwise levels have normalized * Continue to trend (5) Elevated d-dimer: Code(s): R79.89 - Other specified abnormal findings of blood chemistry Status: Acute Assessment and Plan: D-dimer was elevated on presentation. CTA nondiagnostic due to poor contrast bolus timing, though no evidence of PE. Venous Doppler negative for DVT. Low clinical probability for PE and this is likely related to acute illness with COVID-19 * No need for further monitoring of D-dimer (6) Hyperkalemia: Code(s): E87.5 - Hyperkalemia Status: Acute Assessment and Plan: Normalized. Potassium 4.3 * Continue low-potassium diet * Monitor BMP daily (7) Thrombocytopenia: Code(s): D69.6 - Thrombocytopenia, unspecified Status: Acute Assessment and Plan: Platelet count low ranging from 70-90 the past few days. 70k today * This is likely due to COVID-19 * May also be related to HIV * Lovenox on hold. Proceed with mechanical DVT prophylaxis at this time. Resume Lovenox when platelets >100k * Continue to monitor CBC (8) HIV (human immunodeficiency virus infection): Code(s): B20 - Human immunodeficiency virus [HIV] disease S
--- NOTE | 2021-05-16 12:32 | PM.IMPN ---
Progress Note: A&P Assessment and Plan (1) Acute respiratory failure with hypoxia: Code(s): J96.01 - Acute respiratory failure with hypoxia Status: Acute Assessment and Plan: Secondary to COVID-19 pneumonia. PE unlikely based on clinical picture, CTA reviewed with no evidence of PE in main pulmonary artery or left or right main pulmonary arteries. Continue supplemental oxygen with goal sats 90% or above. Wean as tolerated Currently requiring 5 L per high flow cannula. He did require up to 60 L/min on Airvo for several days but has been slowly weaned May also have been some component of volume overload for which he has been diuresed with IV lasix. CXR cannot exclude mild pulmonary edema. BNP not elevated. Echo shows normal systolic and diastolic function. (2) Pneumonia due to COVID-19 virus: Code(s): U07.1 - COVID-19; J12.82 - Pneumonia due to coronavirus disease 2018 Status: Acute Assessment and Plan: Patient had COVID exposure 04/17/2021. Positive test at this facility 04/21/2021. CTA showed worsened diffuse lung disease consistent with COVID 19 pneumonia. Remdesivir 10 day treatment ended 05/07/21 Continue dexamethasone 6 mg, wean to once daily Supportive care to include bronchodilators, expectorants, antipyretics, incentive spirometry Continue supplemental O2 and wean as tolerated Continue isolation precautions Repeat CXR 05/14 showed diffuse lung disease with worsening of the upper lobes consistent with pneumonia superimposed on severe emphysema Continues to slowly improve (3) COPD (chronic obstructive pulmonary disease): Qualifiers: COPD type: COPD with acute lower respiratory infection Qualified Code(s): J44.0 - Chronic obstructive pulmonary disease with (acute) lower respiratory infection Code(s): J44.9 - Chronic obstructive pulmonary disease, unspecified Status: Acute Assessment and Plan: Severe emphysema noted on CTA. Not in acute exacerbation Continue with albuterol MDI q.6 hours prn Will benefit from maintenance inhalers prior to discharge (4) Transaminitis: Code(s): R74.01 - Elevation of levels of liver transaminase levels Status: Acute Assessment and Plan: Likely related to acute viral illness vs chronic hepatitis ALT elevated, otherwise levels have normalized Continue to trend (5) Elevated d-dimer: Code(s): R79.89 - Other specified abnormal findings of blood chemistry Status: Acute Assessment and Plan: D-dimer was elevated on presentation. CTA nondiagnostic due to poor contrast bolus timing, though no evidence of PE. Venous Doppler negative for DVT. Low clinical probability for PE and this is likely related to acute illness with COVID-19 No need for further monitoring of D-dimer (6) Hyperkalemia: Code(s): E87.5 - Hyperkalemia Status: Acute Assessment and Plan: Normalized. Potassium 4.3 Continue low-potassium diet Monitor BMP daily (7) Thrombocytopenia: Code(s): D69.6 - Thrombocytopenia, unspecified Status: Acute Assessment and Plan: Platelet count low ranging from 70-90 the past few days. 70k today This is likely due to COVID-19 May also be related to HIV Lovenox on hold. Proceed with mechanical DVT prophylaxis at this time. Resume Lovenox when platelets >100k Continue to monitor CBC (8) HIV (human immunodeficiency virus infection): Code(s): B20 - Human immunodeficiency virus [HIV] disease Status: Acute Assessment and Plan: Positive since 1982 Continue home medications HIV RNA is undetectable CD4 is pending (9) GERD (gastroesophageal reflux disease): Code(s): K21.9 - Gastro-esophageal reflux disease without esophagitis Status: Acute Assessment and Plan: No complaints today Continue Protonix BID PO (10) New onset type 2 diabetes mellitus: Code(s): E11.9 -
[2021-05-16 16:37] LABS: Glucose Point of Care > 500 mg/dl (65-105)
[2021-05-16] MEDS: INSULIN ASPART (*BKC) 100 UNITS/ML SUB-Q ×2 (16:48→18:57)
[2021-05-16 18:30] LABS: Glucose Point of Care 250 mg/dl (65-105)
[2021-05-16 21:09] LABS: Glucose Point of Care 163 mg/dl (65-105)
[2021-05-17] VITALS (7 sets, daily range): BP systolic 115–140; BP diastolic 69–83; PULSE 78–104; RESP 14–20; TEMP 36.6–37.1; O2SAT 91–95
[2021-05-17] MEDS: CENTRAL LINE FLUSH 10 ML IV PUSH ×2 (06:34→16:17)
[2021-05-17 06:36] LABS: Hematocrit 38.3 % (42.0-52.0); Hemoglobin 12.7 g/dL (14.0-18.0); Immature Platelet Fraction Pct 9.8 % (0.9-11.2); Mean Corpuscular HGB Conc 33.2 g/dl (32-36); Mean Corpuscular Hemoglobin 30.8 pg (26-34); Mean Platelet Volume 12.1 fl (7.4-10.4); Platelet Count Result 58 k/mm3 (150-375); Red Blood Count 4.12 M/mm3 (4.6-6.20); White Blood Count 14.4 K/mm3 (4.5-10.0)
[2021-05-17 06:50] LABS: Alanine Aminotransferase 109 U/L (4-50); Alkaline Phosphatase 74 U/L (38-126); Anion Gap 8 mmol/L (8-16); Aspartate Amino Transferase 37 U/L (17-59); Bilirubin,Total 0.4 mg/dL (0.2-1.3); Blood Urea Nitrogen 41 mg/dL (9-20); Carbon Dioxide 26 mmol/L (22-30); Chloride 102 mmol/L (98-107); Estimated CRCL calculation 45 ml/min; Estimated Glomerular Filt Rate 49; Glucose 211 mg/dL (65-110); Sodium 136 mmol/L (137-145)
[2021-05-17 08:08] LABS: Glucose Point of Care 148 mg/dl (65-105)
[2021-05-17] MEDS: guaiFENesin 12 HR 600 MG TABCR PO ×2 (09:47→20:54)
[2021-05-17] MEDS: FUROSEMIDE 40 MG TABLET PO (09:47)
[2021-05-17] MEDS: amLODIPine BESYLATE 5 MG TABLET 10 MG PO (09:48)
[2021-05-17] MEDS: PANTOPRAZOLE 40 MG TABLET PO ×2 (09:48→20:54)
[2021-05-17 11:32] LABS: Glucose Point of Care 146 mg/dl (65-105)
--- NOTE | 2021-05-17 13:07 | P.PNIM_ITS ---
Progress Note: A&P Assessment and Plan (1) Acute respiratory failure with hypoxia: Code(s): J96.01 - Acute respiratory failure with hypoxia Status: Acute Assessment and Plan: Secondary to COVID-19 pneumonia. PE unlikely based on clinical picture, CTA reviewed with no evidence of PE in main pulmonary artery or left or right main pulmonary arteries. * Continue supplemental oxygen with goal sats 90% or above. Wean as tolerated * Currently requiring between 4-5 L supplemental O2 * He did require up to 60 L/min on Airvo for several days but has been slowly weaned * May also have been some component of volume overload for which he has been diuresed with IV lasix. CXR cannot exclude mild pulmonary edema. BNP not elevated. Echo shows normal systolic and diastolic function. (2) Pneumonia due to COVID-19 virus: Code(s): U07.1 - COVID-19; J12.82 - Pneumonia due to coronavirus disease 2018 Status: Acute Assessment and Plan: Patient had COVID exposure 04/17/2021. Positive test at this facility 04/21/2021. CTA showed worsened diffuse lung disease consistent with COVID 19 pneumonia. * Remdesivir 10 day treatment ended 05/07/21 * Continue dexamethasone 6 mg daily, will stop tomorrow * Supportive care to include bronchodilators, expectorants, antipyretics, incentive spirometry * Continue supplemental O2 and wean as tolerated * Continue isolation precautions * Repeat CXR 05/14 showed diffuse lung disease with worsening of the upper lobes consistent with pneumonia superimposed on severe emphysema * Overall with slow improvement. Consider home O2 eval in next 1-2 days if continued improvement (3) COPD (chronic obstructive pulmonary disease): Qualifiers: COPD type: COPD with acute lower respiratory infection Qualified Code(s): J44.0 - Chronic obstructive pulmonary disease with (acute) lower respiratory infection Code(s): J44.9 - Chronic obstructive pulmonary disease, unspecified Status: Acute Assessment and Plan: Severe emphysema noted on CTA. Not in acute exacerbation * Continue with albuterol MDI q.6 hours prn * Will benefit from maintenance inhalers prior to discharge (4) Transaminitis: Code(s): R74.01 - Elevation of levels of liver transaminase levels Status: Acute Assessment and Plan: Likely related to acute viral illness vs chronic hepatitis * ALT elevated, otherwise levels have normalized * Continue to trend (5) Elevated d-dimer: Code(s): R79.89 - Other specified abnormal findings of blood chemistry Status: Acute Assessment and Plan: D-dimer was elevated on presentation. CTA nondiagnostic due to poor contrast bolus timing, though no evidence of PE. Venous Doppler negative for DVT. Low clinical probability for PE and this is likely related to acute illness with COVID-19 * No need for further monitoring of D-dimer (6) Hyperkalemia: Code(s): E87.5 - Hyperkalemia Status: Acute Assessment and Plan: Normalized. Potassium 4.0 * Continue low-potassium diet * Monitor BMP daily (7) Thrombocytopenia: Code(s): D69.6 - Thrombocytopenia, unspecified Status: Acute Assessment and Plan: Platelet count remaining low since 05/05/21. Lowest today at 58k * This is likely due to COVID-19 * May also be related to HIV * Lovenox on hold. Proceed with mechanical DVT prophylaxis at this time. Resume Lovenox when platelets >100k * Continue to monitor CBC * Consider consultation to hematology if no improvement
--- NOTE | 2021-05-17 13:07 | PM.IMPN ---
Progress Note: A&P Assessment and Plan (1) Acute respiratory failure with hypoxia: Code(s): J96.01 - Acute respiratory failure with hypoxia Status: Acute Assessment and Plan: Secondary to COVID-19 pneumonia. PE unlikely based on clinical picture, CTA reviewed with no evidence of PE in main pulmonary artery or left or right main pulmonary arteries. Continue supplemental oxygen with goal sats 90% or above. Wean as tolerated Currently requiring between 4-5 L supplemental O2 He did require up to 60 L/min on Airvo for several days but has been slowly weaned May also have been some component of volume overload for which he has been diuresed with IV lasix. CXR cannot exclude mild pulmonary edema. BNP not elevated. Echo shows normal systolic and diastolic function. (2) Pneumonia due to COVID-19 virus: Code(s): U07.1 - COVID-19; J12.82 - Pneumonia due to coronavirus disease 2018 Status: Acute Assessment and Plan: Patient had COVID exposure 04/17/2021. Positive test at this facility 04/21/2021. CTA showed worsened diffuse lung disease consistent with COVID 19 pneumonia. Remdesivir 10 day treatment ended 05/07/21 Continue dexamethasone 6 mg daily, will stop tomorrow Supportive care to include bronchodilators, expectorants, antipyretics, incentive spirometry Continue supplemental O2 and wean as tolerated Continue isolation precautions Repeat CXR 05/14 showed diffuse lung disease with worsening of the upper lobes consistent with pneumonia superimposed on severe emphysema Overall with slow improvement. Consider home O2 eval in next 1-2 days if continued improvement (3) COPD (chronic obstructive pulmonary disease): Qualifiers: COPD type: COPD with acute lower respiratory infection Qualified Code(s): J44.0 - Chronic obstructive pulmonary disease with (acute) lower respiratory infection Code(s): J44.9 - Chronic obstructive pulmonary disease, unspecified Status: Acute Assessment and Plan: Severe emphysema noted on CTA. Not in acute exacerbation Continue with albuterol MDI q.6 hours prn Will benefit from maintenance inhalers prior to discharge (4) Transaminitis: Code(s): R74.01 - Elevation of levels of liver transaminase levels Status: Acute Assessment and Plan: Likely related to acute viral illness vs chronic hepatitis ALT elevated, otherwise levels have normalized Continue to trend (5) Elevated d-dimer: Code(s): R79.89 - Other specified abnormal findings of blood chemistry Status: Acute Assessment and Plan: D-dimer was elevated on presentation. CTA nondiagnostic due to poor contrast bolus timing, though no evidence of PE. Venous Doppler negative for DVT. Low clinical probability for PE and this is likely related to acute illness with COVID-19 No need for further monitoring of D-dimer (6) Hyperkalemia: Code(s): E87.5 - Hyperkalemia Status: Acute Assessment and Plan: Normalized. Potassium 4.0 Continue low-potassium diet Monitor BMP daily (7) Thrombocytopenia: Code(s): D69.6 - Thrombocytopenia, unspecified Status: Acute Assessment and Plan: Platelet count remaining low since 05/05/21. Lowest today at 58k This is likely due to COVID-19 May also be related to HIV Lovenox on hold. Proceed with mechanical DVT prophylaxis at this time. Resume Lovenox when platelets >100k Continue to monitor CBC Consider consultation to hematology if no improvement (8) HIV (human immunodeficiency virus infection): Code(s): B20 - Human immunodeficiency virus [HIV] disease Status: Acute Assessment and Plan: Positive since 1982 Continue home medications HIV RNA is undetectable CD4 is pending (9) GERD (gastroesophageal reflux disease): Code(s): K21.9 - Gastro-esophageal reflux disease without esophagitis Status: Acute Assessment an
[2021-05-17 17:36] LABS: Glucose Point of Care 396 mg/dl (65-105)
[2021-05-17] MEDS: INSULIN ASPART (*BKC) 100 UNITS/ML SUB-Q (17:48)
[2021-05-17 20:59] LABS: Glucose Point of Care 174 mg/dl (65-105)
[2021-05-18] VITALS (7 sets, daily range): BP systolic 125–153; BP diastolic 63–80; PULSE 69–92; RESP 12–18; TEMP 36.1–36.7; O2SAT 91–97
[2021-05-18] MEDS: CENTRAL LINE FLUSH 10 ML IV PUSH ×4 (05:06→22:05)
[2021-05-18 06:20] LABS: Hematocrit 38.1 % (42.0-52.0); Hemoglobin 12.8 g/dL (14.0-18.0); Immature Platelet Fraction Pct 9.7 % (0.9-11.2); Mean Corpuscular HGB Conc 33.6 g/dl (32-36); Mean Corpuscular Hemoglobin 31.3 pg (26-34); Mean Corpuscular Volume 93.2 fl (80-100); Mean Platelet Volume 11.8 fl (7.4-10.4); Platelet Count Result 61 k/mm3 (150-375); Red Blood Count 4.09 M/mm3 (4.6-6.20); White Blood Count 15.5 K/mm3 (4.5-10.0)
[2021-05-18 06:29] LABS: Alanine Aminotransferase 122 U/L (4-50); Albumin Level 3.1 g/dL (3.5-5.1); Alkaline Phosphatase 74 U/L (38-126); Anion Gap 6 mmol/L (8-16); Aspartate Amino Transferase 37 U/L (17-59); Bilirubin,Total 0.4 mg/dL (0.2-1.3); Blood Urea Nitrogen 36 mg/dL (9-20); Carbon Dioxide 24 mmol/L (22-30); Chloride 104 mmol/L (98-107); Estimated CRCL calculation 45 ml/min; Estimated Glomerular Filt Rate 49; Glucose 234 mg/dL (65-110); Potassium 4.2 mmol/L (3.4-5.0); Sodium 134 mmol/L (137-145)
[2021-05-18 08:00] LABS: Glucose Point of Care 116 mg/dl (65-105)
[2021-05-18 08:10] LABS: Atypical Lymphocytes Present; Band Neutrophils Percent 3 % (0-6); Lymphocytes Absolute Manual 0.93 K/mm3 (1.1-4.5); Monocytes Absolute Manual 0.46 K/mm3 (0.1-0.90); Monocytes Percent Manual 3 % (3-9); Neutrophils Percent Manual 88 % (46-73); Nucleated Red Blood Cells 1 %; Platelet Estimate Decreased (Adequate); Total Cells Counted 100
[2021-05-18] MEDS: PANTOPRAZOLE 40 MG TABLET PO ×2 (08:50→22:04)
[2021-05-18] MEDS: amLODIPine BESYLATE 5 MG TABLET 10 MG PO (08:51)
[2021-05-18] MEDS: guaiFENesin 12 HR 600 MG TABCR PO ×2 (08:51→22:04)
[2021-05-18] MEDS: FUROSEMIDE 40 MG TABLET PO (08:51)
[2021-05-18 11:54] LABS: Glucose Point of Care 192 mg/dl (65-105)
--- NOTE | 2021-05-18 13:44 | P.PNIM_ITS ---
Progress Note: A&P Assessment and Plan (1) Acute respiratory failure with hypoxia: Code(s): J96.01 - Acute respiratory failure with hypoxia Status: Acute Assessment and Plan: Secondary to COVID-19 pneumonia. PE unlikely based on clinical picture, CTA reviewed with no evidence of PE in main pulmonary artery or left or right main pulmonary arteries. * Continue supplemental oxygen with goal sats 90% or above. Wean as tolerated * Currently requiring between 4 L supplemental O2 * He did require up to 60 L/min on Airvo for several days but has been slowly weaned * May also have been some component of volume overload for which he has been diuresed with IV lasix. CXR cannot exclude mild pulmonary edema. BNP not elevated. Echo shows normal systolic and diastolic function. (2) Pneumonia due to COVID-19 virus: Code(s): U07.1 - COVID-19; J12.82 - Pneumonia due to coronavirus disease 2018 Status: Acute Assessment and Plan: Patient had COVID exposure 04/17/2021. Positive test at this facility 04/21/2021. CTA showed worsened diffuse lung disease consistent with COVID 19 pneumonia. * Remdesivir 10 day treatment ended 05/07/21 * Last dose of dexamethasone today * Supportive care to include bronchodilators, expectorants, antipyretics, incentive spirometry * Continue supplemental O2 and wean as tolerated * Continue isolation precautions * Repeat CXR 05/14 showed diffuse lung disease with worsening of the upper lobes consistent with pneumonia superimposed on severe emphysema * Overall with slow improvement. Consider home O2 eval in next 1-2 days if continued improvement (3) COPD (chronic obstructive pulmonary disease): Qualifiers: COPD type: COPD with acute lower respiratory infection Qualified Code(s): J44.0 - Chronic obstructive pulmonary disease with (acute) lower respiratory infection Code(s): J44.9 - Chronic obstructive pulmonary disease, unspecified Status: Acute Assessment and Plan: Severe emphysema noted on CTA. Not in acute exacerbation * Continue with albuterol MDI q.6 hours prn * Will benefit from maintenance inhalers prior to discharge (4) Transaminitis: Code(s): R74.01 - Elevation of levels of liver transaminase levels Status: Acute Assessment and Plan: Likely related to acute viral illness vs chronic hepatitis * ALT elevated 122, otherwise levels have normalized * Continue to trend (5) Elevated d-dimer: Code(s): R79.89 - Other specified abnormal findings of blood chemistry Status: Acute Assessment and Plan: D-dimer was elevated on presentation. CTA nondiagnostic due to poor contrast bolus timing, though no evidence of PE. Venous Doppler negative for DVT. Low clinical probability for PE and this is likely related to acute illness with COVID-19 * No need for further monitoring of D-dimer (6) Hyperkalemia: Code(s): E87.5 - Hyperkalemia Status: Acute Assessment and Plan: Normalized. Potassium 4.2 * Continue low-potassium diet * Monitor BMP daily (7) Thrombocytopenia: Code(s): D69.6 - Thrombocytopenia, unspecified Status: Acute Assessment and Plan: Platelet count remaining low since 05/05/21. Ranging 60-70k. * This is likely due to COVID-19 * May also be related to HIV * Will check heparin induced platelet antibodies. 4Ts score is 5, indicating intermediate probability of HIT. Patient has no evidence of thrombosis. * Lovenox on hold. Proceed with mechanical DVT prophylaxis at this time * Cont
--- NOTE | 2021-05-18 13:44 | PM.IMPN ---
Progress Note: A&P Assessment and Plan (1) Acute respiratory failure with hypoxia: Code(s): J96.01 - Acute respiratory failure with hypoxia Status: Acute Assessment and Plan: Secondary to COVID-19 pneumonia. PE unlikely based on clinical picture, CTA reviewed with no evidence of PE in main pulmonary artery or left or right main pulmonary arteries. Continue supplemental oxygen with goal sats 90% or above. Wean as tolerated Currently requiring between 4 L supplemental O2 He did require up to 60 L/min on Airvo for several days but has been slowly weaned May also have been some component of volume overload for which he has been diuresed with IV lasix. CXR cannot exclude mild pulmonary edema. BNP not elevated. Echo shows normal systolic and diastolic function. (2) Pneumonia due to COVID-19 virus: Code(s): U07.1 - COVID-19; J12.82 - Pneumonia due to coronavirus disease 2018 Status: Acute Assessment and Plan: Patient had COVID exposure 04/17/2021. Positive test at this facility 04/21/2021. CTA showed worsened diffuse lung disease consistent with COVID 19 pneumonia. Remdesivir 10 day treatment ended 05/07/21 Last dose of dexamethasone today Supportive care to include bronchodilators, expectorants, antipyretics, incentive spirometry Continue supplemental O2 and wean as tolerated Continue isolation precautions Repeat CXR 05/14 showed diffuse lung disease with worsening of the upper lobes consistent with pneumonia superimposed on severe emphysema Overall with slow improvement. Consider home O2 eval in next 1-2 days if continued improvement (3) COPD (chronic obstructive pulmonary disease): Qualifiers: COPD type: COPD with acute lower respiratory infection Qualified Code(s): J44.0 - Chronic obstructive pulmonary disease with (acute) lower respiratory infection Code(s): J44.9 - Chronic obstructive pulmonary disease, unspecified Status: Acute Assessment and Plan: Severe emphysema noted on CTA. Not in acute exacerbation Continue with albuterol MDI q.6 hours prn Will benefit from maintenance inhalers prior to discharge (4) Transaminitis: Code(s): R74.01 - Elevation of levels of liver transaminase levels Status: Acute Assessment and Plan: Likely related to acute viral illness vs chronic hepatitis ALT elevated 122, otherwise levels have normalized Continue to trend (5) Elevated d-dimer: Code(s): R79.89 - Other specified abnormal findings of blood chemistry Status: Acute Assessment and Plan: D-dimer was elevated on presentation. CTA nondiagnostic due to poor contrast bolus timing, though no evidence of PE. Venous Doppler negative for DVT. Low clinical probability for PE and this is likely related to acute illness with COVID-19 No need for further monitoring of D-dimer (6) Hyperkalemia: Code(s): E87.5 - Hyperkalemia Status: Acute Assessment and Plan: Normalized. Potassium 4.2 Continue low-potassium diet Monitor BMP daily (7) Thrombocytopenia: Code(s): D69.6 - Thrombocytopenia, unspecified Status: Acute Assessment and Plan: Platelet count remaining low since 05/05/21. Ranging 60-70k. This is likely due to COVID-19 May also be related to HIV Will check heparin induced platelet antibodies. 4Ts score is 5, indicating intermediate probability of HIT. Patient has no evidence of thrombosis. Lovenox on hold. Proceed with mechanical DVT prophylaxis at this time Continue to monitor CBC Consider consultation to hematology if no improvement (8) HIV (human immunodeficiency virus infection): Code(s): B20 - Human immunodeficiency virus [HIV] disease Status: Acute Assessment and Plan: Positive since 1982 Continue home medications HIV RNA is undetectable CD4 is pending (9) GERD (gastroesophageal reflux disease): Code(s): K21.9 - Gas
[2021-05-18 15:03] LABS: Alkaline Phosphatase 69 U/L (38-126); Anion Gap 4 mmol/L (8-16); Aspartate Amino Transferase 46 U/L (17-59); Bilirubin,Total 0.5 mg/dL (0.2-1.3); Blood Urea Nitrogen 37 mg/dL (9-20); Calcium 7.9 mg/dL (8.4-10.2); Carbon Dioxide 24 mmol/L (22-30); Chloride 101 mmol/L (98-107); Estimated CRCL calculation 45 ml/min; Estimated Glomerular Filt Rate 49; Glucose 326 mg/dL (65-110); Potassium 4.7 mmol/L (3.4-5.0); Sodium 129 mmol/L (137-145)
[2021-05-18 15:08] LABS: Alanine Aminotransferase 126 U/L (4-50)
[2021-05-18 16:43] LABS: Glucose Point of Care 264 mg/dl (65-105)
[2021-05-18] MEDS: INSULIN ASPART (*BKC) 100 UNITS/ML SUB-Q (17:03)
[2021-05-18 22:32] LABS: Glucose Point of Care 273 mg/dl (65-105)
[2021-05-19] VITALS: BP 144/62; PULSE 73; RESP 18; TEMP 36.6; O2SAT 93
[2021-05-19] MEDS: CENTRAL LINE FLUSH 10 ML IV PUSH ×3 (05:39→20:21)
[2021-05-19 06:47] VITALS: BP 135/86; PULSE 84; RESP 17; TEMP 36.8; O2SAT 96
[2021-05-19 07:25] LABS: Hematocrit 38.4 % (42.0-52.0); Hemoglobin 12.6 g/dL (14.0-18.0); Immature Platelet Fraction Pct 10.2 % (0.9-11.2); Mean Corpuscular HGB Conc 32.8 g/dl (32-36); Mean Corpuscular Volume 94.6 fl (80-100); Mean Platelet Volume 10.6 fl (7.4-10.4); Platelet Count Result 60 k/mm3 (150-375); Red Blood Count 4.06 M/mm3 (4.6-6.20); Red Cell Distribution Width 16.6 % (11.5-14.5); White Blood Count 15.5 K/mm3 (4.5-10.0)
[2021-05-19 07:56] LABS: Band Neutrophils Percent 5 % (0-6); Lymphocytes Absolute Manual 1.24 K/mm3 (1.1-4.5); Metamyelocytes Percent 2 %; Monocytes Absolute Manual 0.46 K/mm3 (0.1-0.90); Monocytes Percent Manual 3 % (3-9); Neutrophils Absolute Manual 13.48 K/mm3 (1.3-6.7); Neutrophils Percent Manual 82 % (46-73); Total Cells Counted 100
[2021-05-19 07:57] LABS: Atypical Lymphocytes Present; Large Platelets Present
[2021-05-19 08:00] VITALS: BP 128/80; PULSE 84; PULSE 85; RESP 17; RESP 20; TEMP 36.4; O2SAT 91; O2SAT 96
[2021-05-19 08:28] LABS: Alanine Aminotransferase 133 U/L (4-50); Albumin Level 3.2 g/dL (3.5-5.1); Alkaline Phosphatase 71 U/L (38-126); Anion Gap 1 mmol/L (8-16); Aspartate Amino Transferase 37 U/L (17-59); Bilirubin,Total 0.5 mg/dL (0.2-1.3); Blood Urea Nitrogen 38 mg/dL (9-20); Calcium 8.4 mg/dL (8.4-10.2); Carbon Dioxide 27 mmol/L (22-30); Chloride 103 mmol/L (98-107); Estimated CRCL calculation 45 ml/min; Estimated Glomerular Filt Rate 49; Glucose 114 mg/dL (65-110); Potassium 5.1 mmol/L (3.4-5.0); Sodium 131 mmol/L (137-145)
[2021-05-19 08:40] LABS: Glucose Point of Care 106 mg/dl (65-105)
[2021-05-19] MEDS: amLODIPine BESYLATE 5 MG TABLET 10 MG PO (08:54)
[2021-05-19] MEDS: PANTOPRAZOLE 40 MG TABLET PO ×2 (08:55→20:21)
[2021-05-19] MEDS: guaiFENesin 12 HR 600 MG TABCR PO ×2 (08:55→20:21)
[2021-05-19] MEDS: FUROSEMIDE 40 MG TABLET PO (08:55)
--- NOTE | 2021-05-19 10:03 | PCNWS ---
Weekly nutritional screen. Patient is tolerating current diet with adequate intake of 100% of meals. No weight loss reported. No nutritional needs at this time.
[2021-05-19 11:50] LABS: Glucose Point of Care 117 mg/dl (65-105)
--- NOTE | 2021-05-19 13:59 | P.PNIM_ITS ---
Progress Note: A&P Assessment and Plan (1) Acute respiratory failure with hypoxia: Code(s): J96.01 - Acute respiratory failure with hypoxia Status: Acute Assessment and Plan: Secondary to COVID-19 pneumonia. PE unlikely based on clinical picture, CTA reviewed with no evidence of PE in main pulmonary artery or left or right main pulmonary arteries. * Continue supplemental oxygen with goal sats 90% or above. Wean as tolerated * Currently requiring 4 L supplemental O2 * May also have been some component of volume overload for which he has been diuresed with IV lasix. CXR cannot exclude mild pulmonary edema. BNP not elevated. Echo shows normal systolic and diastolic function. (2) Pneumonia due to COVID-19 virus: Code(s): U07.1 - COVID-19; J12.82 - Pneumonia due to coronavirus disease 2018 Status: Acute Assessment and Plan: Patient had COVID exposure 04/17/2021. Positive test at this facility 04/21/2021. CTA showed worsened diffuse lung disease consistent with COVID 19 pneumonia. * Remdesivir 10 day treatment ended 05/07/21 * Completed extended course dexamethasone today * Supportive care to include bronchodilators, expectorants, antipyretics, incentive spirometry * Continue supplemental O2 and wean as tolerated * Continue isolation precautions * Repeat CXR 05/14 showed diffuse lung disease with worsening of the upper lobes consistent with pneumonia superimposed on severe emphysema. Overall with significant clinical improvement (3) COPD (chronic obstructive pulmonary disease): Qualifiers: COPD type: COPD with acute lower respiratory infection Qualified Code(s): J44.0 - Chronic obstructive pulmonary disease with (acute) lower respiratory infection Code(s): J44.9 - Chronic obstructive pulmonary disease, unspecified Status: Acute Assessment and Plan: Severe emphysema noted on CTA. Not in acute exacerbation * Continue with albuterol MDI q.6 hours prn * Will benefit from maintenance inhalers prior to discharge (4) Transaminitis: Code(s): R74.01 - Elevation of levels of liver transaminase levels Status: Acute Assessment and Plan: Likely related to acute viral illness * ALT elevated 133, otherwise levels have normalized * Continue to trend * Will obtain RUQ US. Would expect overall improvement but has been trending upward again (5) Elevated d-dimer: Code(s): R79.89 - Other specified abnormal findings of blood chemistry Status: Acute Assessment and Plan: D-dimer was elevated on presentation. CTA nondiagnostic due to poor contrast bolus timing, though no evidence of PE. Venous Doppler negative for DVT. Low clinical probability for PE and this is likely related to acute illness with COVID-19 * No need for further monitoring of D-dimer (6) Hyperkalemia: Code(s): E87.5 - Hyperkalemia Status: Acute Assessment and Plan: Potassium 5.1 today * Levels have been fluctuant * Continue low-potassium diet, though he has not been compliant with this as he has mostly been ordering outside food * Monitor BMP daily (7) Thrombocytopenia: Code(s): D69.6 - Thrombocytopenia, unspecified Status: Acute Assessment and Plan: Platelet count remaining low since 05/05/21. Ranging 60-70k. * This is likely due to COVID-19 * May also be related to HIV * Will check heparin induced platelet antibodies. 4Ts score is 5, indicating intermediate probability of HIT. Patient has no evidence of thrombosis. Discussed case with hematol
--- NOTE | 2021-05-19 13:59 | PM.IMPN ---
Progress Note: A&P Assessment and Plan (1) Acute respiratory failure with hypoxia: Code(s): J96.01 - Acute respiratory failure with hypoxia Status: Acute Assessment and Plan: Secondary to COVID-19 pneumonia. PE unlikely based on clinical picture, CTA reviewed with no evidence of PE in main pulmonary artery or left or right main pulmonary arteries. Continue supplemental oxygen with goal sats 90% or above. Wean as tolerated Currently requiring 4 L supplemental O2 May also have been some component of volume overload for which he has been diuresed with IV lasix. CXR cannot exclude mild pulmonary edema. BNP not elevated. Echo shows normal systolic and diastolic function. (2) Pneumonia due to COVID-19 virus: Code(s): U07.1 - COVID-19; J12.82 - Pneumonia due to coronavirus disease 2018 Status: Acute Assessment and Plan: Patient had COVID exposure 04/17/2021. Positive test at this facility 04/21/2021. CTA showed worsened diffuse lung disease consistent with COVID 19 pneumonia. Remdesivir 10 day treatment ended 05/07/21 Completed extended course dexamethasone today Supportive care to include bronchodilators, expectorants, antipyretics, incentive spirometry Continue supplemental O2 and wean as tolerated Continue isolation precautions Repeat CXR 05/14 showed diffuse lung disease with worsening of the upper lobes consistent with pneumonia superimposed on severe emphysema. Overall with significant clinical improvement (3) COPD (chronic obstructive pulmonary disease): Qualifiers: COPD type: COPD with acute lower respiratory infection Qualified Code(s): J44.0 - Chronic obstructive pulmonary disease with (acute) lower respiratory infection Code(s): J44.9 - Chronic obstructive pulmonary disease, unspecified Status: Acute Assessment and Plan: Severe emphysema noted on CTA. Not in acute exacerbation Continue with albuterol MDI q.6 hours prn Will benefit from maintenance inhalers prior to discharge (4) Transaminitis: Code(s): R74.01 - Elevation of levels of liver transaminase levels Status: Acute Assessment and Plan: Likely related to acute viral illness ALT elevated 133, otherwise levels have normalized Continue to trend Will obtain RUQ US. Would expect overall improvement but has been trending upward again (5) Elevated d-dimer: Code(s): R79.89 - Other specified abnormal findings of blood chemistry Status: Acute Assessment and Plan: D-dimer was elevated on presentation. CTA nondiagnostic due to poor contrast bolus timing, though no evidence of PE. Venous Doppler negative for DVT. Low clinical probability for PE and this is likely related to acute illness with COVID-19 No need for further monitoring of D-dimer (6) Hyperkalemia: Code(s): E87.5 - Hyperkalemia Status: Acute Assessment and Plan: Potassium 5.1 today Levels have been fluctuant Continue low-potassium diet, though he has not been compliant with this as he has mostly been ordering outside food Monitor BMP daily (7) Thrombocytopenia: Code(s): D69.6 - Thrombocytopenia, unspecified Status: Acute Assessment and Plan: Platelet count remaining low since 05/05/21. Ranging 60-70k. This is likely due to COVID-19 May also be related to HIV Will check heparin induced platelet antibodies. 4Ts score is 5, indicating intermediate probability of HIT. Patient has no evidence of thrombosis. Discussed case with relay repairer who reports relatively low risk for HIT. Discussed with PCP who did not feel comfortable monitoring platelets as an outpatient. Pt may benefit from referral to hematology Lovenox on hold. Proceed with mechanical DVT prophylaxis at this time Continue to monitor CBC (8) HIV (human immunodeficiency virus infection): Code(s): B20 - Human immunodeficiency virus [HIV] disease Status: Acute
[2021-05-19 14:00] VITALS: BP 117/69; PULSE 97; RESP 20; TEMP 36.6; O2SAT 91
[2021-05-19 17:28] LABS: Glucose Point of Care 156 mg/dl (65-105)
[2021-05-19 20:00] VITALS: O2SAT 91
[2021-05-19 21:51] LABS: Glucose Point of Care 152 mg/dl (65-105)
[2021-05-19 22:00] VITALS: BP 160/75; PULSE 90; RESP 20; TEMP 36.6; O2SAT 94
[2021-05-20 06:00] VITALS: BP 130/84; PULSE 82; RESP 20; TEMP 36.2; O2SAT 91
[2021-05-20] MEDS: CENTRAL LINE FLUSH 10 ML IV PUSH ×3 (06:42→21:40)
[2021-05-20 06:46] LABS: Hematocrit 38.5 % (42.0-52.0); Mean Corpuscular HGB Conc 33.8 g/dl (32-36); Mean Corpuscular Hemoglobin 31.1 pg (26-34); Mean Corpuscular Volume 92.1 fl (80-100); Mean Platelet Volume 12.2 fl (7.4-10.4); Platelet Count Result 44 k/mm3 (150-375); Red Blood Count 4.18 M/mm3 (4.6-6.20); Red Cell Distribution Width 16.7 % (11.5-14.5); White Blood Count 11.7 K/mm3 (4.5-10.0)
[2021-05-20 07:14] LABS: Alanine Aminotransferase 129 U/L (4-50); Albumin Level 3.1 g/dL (3.5-5.1); Alkaline Phosphatase 72 U/L (38-126); Anion Gap 0 mmol/L (8-16); Aspartate Amino Transferase 36 U/L (17-59); Bilirubin,Total 0.5 mg/dL (0.2-1.3); Blood Urea Nitrogen 35 mg/dL (9-20); Calcium 8.1 mg/dL (8.4-10.2); Carbon Dioxide 25 mmol/L (22-30); Chloride 104 mmol/L (98-107); Estimated CRCL calculation 48 ml/min; Estimated Glomerular Filt Rate 53; Glucose 93 mg/dL (65-110); Potassium 4.5 mmol/L (3.4-5.0); Sodium 129 mmol/L (137-145)
[2021-05-20 08:00] VITALS: PULSE 82; RESP 20; O2SAT 91
[2021-05-20 08:40] LABS: NT Pro B Type Natriuretic Pept 278 pg/mL (5-100)
[2021-05-20] MEDS: PANTOPRAZOLE 40 MG TABLET PO ×2 (08:42→21:35)
[2021-05-20] MEDS: guaiFENesin 12 HR 600 MG TABCR PO ×2 (08:42→21:35)
[2021-05-20] MEDS: amLODIPine BESYLATE 5 MG TABLET 10 MG PO (08:42)
[2021-05-20] MEDS: FUROSEMIDE 40 MG TABLET PO (08:42)
[2021-05-20 09:21] LABS: Glucose Point of Care 68 mg/dl (65-105)
[2021-05-20 10:15] LABS: Glucose Point of Care 154 mg/dl (65-105)
[2021-05-20 12:38] LABS: Glucose Point of Care 75 mg/dl (65-105)
--- NOTE | 2021-05-20 12:45 | PM.IMPN ---
Progress Note: A&P Assessment and Plan (1) Acute respiratory failure with hypoxia: Code(s): J96.01 - Acute respiratory failure with hypoxia Status: Acute Assessment and Plan: Secondary to COVID-19 pneumonia. PE unlikely based on clinical picture, CTA reviewed with no evidence of PE in main pulmonary artery or left or right main pulmonary arteries. Continue supplemental oxygen with goal sats 90% or above. Wean as tolerated On room air at this time, sating 89-90% May also have been some component of volume overload for which he has been diuresed with IV lasix. CXR cannot exclude mild pulmonary edema. BNP mildly elevated 259 Echo shows normal systolic and diastolic function. (2) Pneumonia due to COVID-19 virus: Code(s): U07.1 - COVID-19; J12.82 - Pneumonia due to coronavirus disease 2018 Status: Acute Assessment and Plan: Patient had COVID exposure 04/17/2021. Positive test at this facility 04/21/2021. CTA showed worsened diffuse lung disease consistent with COVID 19 pneumonia. Remdesivir 10 day treatment ended 05/07/21 Completed extended course dexamethasone today Supportive care to include bronchodilators, expectorants, antipyretics, incentive spirometry Continue supplemental O2 and wean as tolerated Continue isolation precautions Repeat CXR 05/14 showed diffuse lung disease with worsening of the upper lobes consistent with pneumonia superimposed on severe emphysema. Overall with significant clinical improvement (3) COPD (chronic obstructive pulmonary disease): Qualifiers: COPD type: COPD with acute lower respiratory infection Qualified Code(s): J44.0 - Chronic obstructive pulmonary disease with (acute) lower respiratory infection Code(s): J44.9 - Chronic obstructive pulmonary disease, unspecified Status: Acute Assessment and Plan: Severe emphysema noted on CTA. Not in acute exacerbation Continue with albuterol MDI q.6 hours prn Will benefit from maintenance inhalers prior to discharge (4) Transaminitis: Code(s): R74.01 - Elevation of levels of liver transaminase levels Status: Acute Assessment and Plan: Likely related to acute viral illness ALT elevated 129, otherwise levels have normalized Continue to trend Will obtain RUQ US. Would expect overall improvement but has been trending upward again (5) Elevated d-dimer: Code(s): R79.89 - Other specified abnormal findings of blood chemistry Status: Acute Assessment and Plan: D-dimer was elevated on presentation. Current D. Dimer 5.33 CTA nondiagnostic due to poor contrast bolus timing, though no evidence of PE. Venous Doppler negative for DVT. Low clinical probability for PE and this is likely related to acute illness with COVID-19 No need for further monitoring of D-dimer (6) Hyperkalemia: Code(s): E87.5 - Hyperkalemia Status: Acute Assessment and Plan: Potassium 4.5 today Levels have been fluctuant Continue low-potassium diet, though he has not been compliant with this as he has mostly been ordering outside food Monitor BMP daily (7) Thrombocytopenia: Code(s): D69.6 - Thrombocytopenia, unspecified Status: Acute Assessment and Plan: Platelet count remaining low since 05/05/21. Ranging 60-70k. Down to 44K today This is likely due to COVID-19 May also be related to HIV Will check heparin induced platelet antibodies. 4Ts score is 5, indicating intermediate probability of HIT. Patient has no evidence of thrombosis. Discussed case with manager water wastewater who reports relatively low risk for HIT. Discussed with PCP who did not feel comfortable monitoring platelets as an outpatient. Pt may benefit from referral to hematology Lovenox on hold. Proceed with mechanical DVT prophylaxis at this time Continue to monitor CBC (8) HIV (human immunodeficiency virus infection):
--- NOTE | 2021-05-20 12:45 | P.PNIM_ITS ---
Progress Note: A&P Assessment and Plan (1) Acute respiratory failure with hypoxia: Code(s): J96.01 - Acute respiratory failure with hypoxia Status: Acute Assessment and Plan: * Secondary to COVID-19 pneumonia. * PE unlikely based on clinical picture, CTA reviewed with no evidence of PE in main pulmonary artery or left or right main pulmonary arteries. * Continue supplemental oxygen with goal sats 90% or above. Wean as tolerated * On room air at this time, sating 89-90% * May also have been some component of volume overload for which he has been diuresed with IV lasix. * CXR cannot exclude mild pulmonary edema. * BNP mildly elevated 259 * Echo shows normal systolic and diastolic function. (2) Pneumonia due to COVID-19 virus: Code(s): U07.1 - COVID-19; J12.82 - Pneumonia due to coronavirus disease 2018 Status: Acute Assessment and Plan: * Patient had COVID exposure 04/17/2021. * Positive test at this facility 04/21/2021. * CTA showed worsened diffuse lung disease consistent with COVID 19 pneumonia. * Remdesivir 10 day treatment ended 05/07/21 * Completed extended course dexamethasone today * Supportive care to include bronchodilators, expectorants, antipyretics, incentive spirometry * Continue supplemental O2 and wean as tolerated * Continue isolation precautions * Repeat CXR 05/14 showed diffuse lung disease with worsening of the upper lobes consistent with pneumonia superimposed on severe emphysema. Overall with significant clinical improvement (3) COPD (chronic obstructive pulmonary disease): Qualifiers: COPD type: COPD with acute lower respiratory infection Qualified Code(s): J44.0 - Chronic obstructive pulmonary disease with (acute) lower respiratory infection Code(s): J44.9 - Chronic obstructive pulmonary disease, unspecified Status: Acute Assessment and Plan: * Severe emphysema noted on CTA. Not in acute exacerbation * Continue with albuterol MDI q.6 hours prn * Will benefit from maintenance inhalers prior to discharge (4) Transaminitis: Code(s): R74.01 - Elevation of levels of liver transaminase levels Status: Acute Assessment and Plan: * Likely related to acute viral illness * ALT elevated 129, otherwise levels have normalized * Continue to trend * Will obtain RUQ US. Would expect overall improvement but has been trending upward again (5) Elevated d-dimer: Code(s): R79.89 - Other specified abnormal findings of blood chemistry Status: Acute Assessment and Plan: * D-dimer was elevated on presentation. * Current D. Dimer 5.33 * CTA nondiagnostic due to poor contrast bolus timing, though no evidence of PE. * Venous Doppler negative for DVT. * Low clinical probability for PE and this is likely related to acute illness with COVID-19 * No need for further monitoring of D-dimer (6) Hyperkalemia: Code(s): E87.5 - Hyperkalemia Status: Acute Assessment and Plan: * Potassium 4.5 today * Levels have been fluctuant * Continue low-potassium diet, though he has not been compliant with this as he has mostly been ordering outside food * Monitor BMP daily (7) Thrombocytopenia: Code(s): D69.6 - Thrombocytopenia, unspecified Status: Acute Assessment and Plan: * Platelet count remaining low since 05/05/21. Ranging 60-70k. Down to 44K today * This is likely due to COVID-19 * May also be related to HIV * Will check heparin induced platelet antibodies.
[2021-05-20 14:00] VITALS: BP 145/83; PULSE 97; RESP 24; TEMP 37.2; O2SAT 90
[2021-05-20] MEDS: ALBUMIN HUMAN 25% 25 GM/100 ML 100 ML IVPB (14:57)
[2021-05-20] MEDS: FUROSEMIDE INJ 40 MG/4 ML VIAL IV PUSH (16:05)
[2021-05-20 16:57] LABS: Glucose Point of Care 73 mg/dl (65-105)
[2021-05-20 16:59] LABS: Heparin Induced Platelet Antib Negative (Negative)
[2021-05-20 20:00] VITALS: PULSE 104; RESP 20; O2SAT 90
[2021-05-20 21:43] LABS: Glucose Point of Care 171 mg/dl (65-105)
[2021-05-20 22:28] VITALS: BP 120/65; PULSE 104; RESP 20; TEMP 36.9; O2SAT 90
[2021-05-21 06:00] VITALS: BP 109/64; PULSE 105; RESP 20; TEMP 36.7; O2SAT 95
[2021-05-21] MEDS: CENTRAL LINE FLUSH 10 ML IV PUSH ×3 (06:16→20:21)
[2021-05-21 07:36] LABS: Basophils Percent Auto 0.4 % (0.2-1.2); Eosinophils Absolute Auto 0.1 K/mm3 (0-0.3); Eosinophils Percent Auto 1.1 % (0-4.4); Hematocrit 37.3 % (42.0-52.0); Hemoglobin 12.5 g/dL (14.0-18.0); Immature Granulocyte Absolute 0.43 K/mm3 (0.00-0.031); Immature Granulocyte Percent A 4.4 % (0-0.5); Lymphocytes Absolute Auto 0.68 K/mm3 (0.9-3.2); Mean Corpuscular HGB Conc 33.5 g/dl (32-36); Mean Corpuscular Hemoglobin 30.8 pg (26-34); Mean Corpuscular Volume 91.9 fl (80-100); Mean Platelet Volume 10.6 fl (7.4-10.4); Monocytes Absolute Auto 0.3 K/mm3 (0.1-0.6); Monocytes Percent Auto 3.3 % (2.6-8.5); Neutrophils Absolute Auto 8.1 K/mm3 (1.3-6.7); Neutrophils Percent Auto 83.8 % (45.5-73.1); Nucleated Red Blood Cells Perc 0.2 % (0.0-0.2); Platelet Count Result 41 k/mm3 (150-375); Red Blood Count 4.06 M/mm3 (4.6-6.20); Red Cell Distribution Width 16.8 % (11.5-14.5); White Blood Count 9.7 K/mm3 (4.5-10.0)
[2021-05-21 07:45] LABS: Alanine Aminotransferase 107 U/L (4-50); Albumin Level 3.2 g/dL (3.5-5.1); Alkaline Phosphatase 76 U/L (38-126); Anion Gap 2 mmol/L (8-16); Aspartate Amino Transferase 32 U/L (17-59); Bilirubin,Total 0.4 mg/dL (0.2-1.3); Blood Urea Nitrogen 32 mg/dL (9-20); Carbon Dioxide 27 mmol/L (22-30); Chloride 103 mmol/L (98-107); Estimated CRCL calculation 43 ml/min; Estimated Glomerular Filt Rate 46; Glucose 121 mg/dL (65-110); Lactate Dehydrogenase 848 U/L (313-618); Magnesium 2.1 mg/dL (1.6-2.3); Sodium 132 mmol/L (137-145)
[2021-05-21 07:52] LABS: CRP 14.6 mg/dL (<1.0)
[2021-05-21 08:00] VITALS: O2SAT 95
--- NOTE | 2021-05-21 08:10 | P.PNIM_ITS ---
Progress Note: A&P Assessment and Plan (1) Acute respiratory failure with hypoxia: Code(s): J96.01 - Acute respiratory failure with hypoxia Status: Acute Assessment and Plan: * Secondary to COVID-19 pneumonia. * PE unlikely based on clinical picture, CTA reviewed with no evidence of PE in main pulmonary artery or left or right main pulmonary arteries. * Continue supplemental oxygen with goal sats 90% or above. Wean as tolerated * On room air at this time, sating 89-90% * May also have been some component of volume overload for which he has been diuresed with IV lasix. * CXR cannot exclude mild pulmonary edema. * BNP mildly elevated 259 * Echo shows normal systolic and diastolic function. (2) Pneumonia due to COVID-19 virus: Code(s): U07.1 - COVID-19; J12.82 - Pneumonia due to coronavirus disease 2018 Status: Acute Assessment and Plan: * Patient had COVID exposure 04/17/2021. * Positive test at this facility 04/21/2021. * CTA showed worsened diffuse lung disease consistent with COVID 19 pneumonia. * Remdesivir 10 day treatment ended 05/07/21 * Completed extended course dexamethasone * Supportive care to include bronchodilators, expectorants, antipyretics, incentive spirometry * Continue supplemental O2 and wean as tolerated * Continue isolation precautions * Repeat CXR 05/14 showed diffuse lung disease with worsening of the upper lobes consistent with pneumonia superimposed on severe emphysema. Overall with significant clinical improvement (3) COPD (chronic obstructive pulmonary disease): Qualifiers: COPD type: COPD with acute lower respiratory infection Qualified Code(s): J44.0 - Chronic obstructive pulmonary disease with (acute) lower respiratory infection Code(s): J44.9 - Chronic obstructive pulmonary disease, unspecified Status: Acute Assessment and Plan: * Severe emphysema noted on CTA. Not in acute exacerbation * Continue with albuterol MDI q.6 hours prn * Will benefit from maintenance inhalers prior to discharge (4) Transaminitis: Code(s): R74.01 - Elevation of levels of liver transaminase levels Status: Acute Assessment and Plan: * Likely related to acute viral illness * ALT elevated 107, otherwise levels have normalized * Continue to trend * Will obtain RUQ US. Would expect overall improvement but has been trending upward again (5) Elevated d-dimer: Code(s): R79.89 - Other specified abnormal findings of blood chemistry Status: Acute Assessment and Plan: * D-dimer was elevated on presentation. * Current D. Dimer 6.85 * CTA nondiagnostic due to poor contrast bolus timing, though no evidence of PE. * Venous Doppler negative for DVT. * Low clinical probability for PE and this is likely related to acute illness with COVID-19 * No need for further monitoring of D-dimer (6) Hyperkalemia: Code(s): E87.5 - Hyperkalemia Status: Acute Assessment and Plan: * Potassium 4.0 today * Levels have been fluctuant * Continue low-potassium diet, though he has not been compliant with this as he has mostly been ordering outside food * Monitor BMP daily (7) Thrombocytopenia: Code(s): D69.6 - Thrombocytopenia, unspecified Status: Acute Assessment and Plan: * Platelet count remaining low since 05/05/21. Ranging 60-70k. Down to 41K today * This is likely due to COVID-19 * May also be related to HIV * Will check heparin induced platelet antibodies. 4Ts sc
--- NOTE | 2021-05-21 08:10 | PM.IMPN ---
Progress Note: A&P Assessment and Plan (1) Acute respiratory failure with hypoxia: Code(s): J96.01 - Acute respiratory failure with hypoxia Status: Acute Assessment and Plan: Secondary to COVID-19 pneumonia. PE unlikely based on clinical picture, CTA reviewed with no evidence of PE in main pulmonary artery or left or right main pulmonary arteries. Continue supplemental oxygen with goal sats 90% or above. Wean as tolerated On room air at this time, sating 89-90% May also have been some component of volume overload for which he has been diuresed with IV lasix. CXR cannot exclude mild pulmonary edema. BNP mildly elevated 259 Echo shows normal systolic and diastolic function. (2) Pneumonia due to COVID-19 virus: Code(s): U07.1 - COVID-19; J12.82 - Pneumonia due to coronavirus disease 2018 Status: Acute Assessment and Plan: Patient had COVID exposure 04/17/2021. Positive test at this facility 04/21/2021. CTA showed worsened diffuse lung disease consistent with COVID 19 pneumonia. Remdesivir 10 day treatment ended 05/07/21 Completed extended course dexamethasone Supportive care to include bronchodilators, expectorants, antipyretics, incentive spirometry Continue supplemental O2 and wean as tolerated Continue isolation precautions Repeat CXR 05/14 showed diffuse lung disease with worsening of the upper lobes consistent with pneumonia superimposed on severe emphysema. Overall with significant clinical improvement (3) COPD (chronic obstructive pulmonary disease): Qualifiers: COPD type: COPD with acute lower respiratory infection Qualified Code(s): J44.0 - Chronic obstructive pulmonary disease with (acute) lower respiratory infection Code(s): J44.9 - Chronic obstructive pulmonary disease, unspecified Status: Acute Assessment and Plan: Severe emphysema noted on CTA. Not in acute exacerbation Continue with albuterol MDI q.6 hours prn Will benefit from maintenance inhalers prior to discharge (4) Transaminitis: Code(s): R74.01 - Elevation of levels of liver transaminase levels Status: Acute Assessment and Plan: Likely related to acute viral illness ALT elevated 107, otherwise levels have normalized Continue to trend Will obtain RUQ US. Would expect overall improvement but has been trending upward again (5) Elevated d-dimer: Code(s): R79.89 - Other specified abnormal findings of blood chemistry Status: Acute Assessment and Plan: D-dimer was elevated on presentation. Current D. Dimer 6.85 CTA nondiagnostic due to poor contrast bolus timing, though no evidence of PE. Venous Doppler negative for DVT. Low clinical probability for PE and this is likely related to acute illness with COVID-19 No need for further monitoring of D-dimer (6) Hyperkalemia: Code(s): E87.5 - Hyperkalemia Status: Acute Assessment and Plan: Potassium 4.0 today Levels have been fluctuant Continue low-potassium diet, though he has not been compliant with this as he has mostly been ordering outside food Monitor BMP daily (7) Thrombocytopenia: Code(s): D69.6 - Thrombocytopenia, unspecified Status: Acute Assessment and Plan: Platelet count remaining low since 05/05/21. Ranging 60-70k. Down to 41K today This is likely due to COVID-19 May also be related to HIV Will check heparin induced platelet antibodies. 4Ts score is 5, indicating intermediate probability of HIT. Patient has no evidence of thrombosis. Discussed case with insurance and benefits clerk who reports relatively low risk for HIT. Discussed with PCP who did not feel comfortable monitoring platelets as an outpatient. Pt may benefit from referral to hematology Lovenox on hold. Proceed with mechanical DVT prophylaxis at this time Continue to monitor CBC (8) HIV (human immunodeficiency virus infection): Joe
[2021-05-21 08:22] LABS: Glucose Point of Care 97 mg/dl (65-105)
[2021-05-21] MEDS: PANTOPRAZOLE 40 MG TABLET PO ×2 (08:26→20:20)
[2021-05-21] MEDS: amLODIPine BESYLATE 5 MG TABLET 10 MG PO (08:26)
[2021-05-21] MEDS: guaiFENesin 12 HR 600 MG TABCR PO ×2 (08:26→20:21)
[2021-05-21] MEDS: FUROSEMIDE 40 MG TABLET PO (08:26)
[2021-05-21 08:32] LABS: D Dimer 6.85 ug/mL (<0.48)
[2021-05-21] MEDS: WATER FOR IRRIGATION, STERILE 1,000 ML BOTTLE 1000 ML (08:42)
[2021-05-21 12:09] LABS: Glucose Point of Care 114 mg/dl (65-105)
[2021-05-21 13:30] VITALS: O2SAT 100
[2021-05-21 14:00] VITALS: BP 113/63; PULSE 107; RESP 18; TEMP 37.1; O2SAT 100; O2SAT 96
[2021-05-21 17:14] LABS: Glucose Point of Care 86 mg/dl (65-105)
[2021-05-21 20:00] VITALS: PULSE 95; RESP 18; O2SAT 94
[2021-05-21 21:27] VITALS: BP 124/72; PULSE 95; RESP 18; TEMP 37.4; O2SAT 94
[2021-05-21 21:58] LABS: Glucose Point of Care 138 mg/dl (65-105)
[2021-05-21] MEDS: MELATONIN 5 MG TABLET PO (22:08)
[2021-05-22] VITALS (11 sets, daily range): BP systolic 95–116; BP diastolic 45–75; PULSE 92–94; RESP 19–20; TEMP 37.1–37.3; O2SAT 84–95
[2021-05-22] MEDS: CENTRAL LINE FLUSH 10 ML IV PUSH ×2 (06:46→16:19)
[2021-05-22 08:11] LABS: Glucose Point of Care 104 mg/dl (65-105)
[2021-05-22 08:17] LABS: Basophils Percent Auto 0.2 % (0.2-1.2); Eosinophils Absolute Auto 0.1 K/mm3 (0-0.3); Eosinophils Percent Auto 1.2 % (0-4.4); Hematocrit 40.1 % (42.0-52.0); Hemoglobin 12.9 g/dL (14.0-18.0); Immature Granulocyte Percent A 2.4 % (0-0.5); Immature Platelet Fraction Pct 9.9 % (0.9-11.2); Lymphocytes Absolute Auto 0.65 K/mm3 (0.9-3.2); Lymphocytes Percent Auto 7.8 % (18.3-44.2); Mean Corpuscular HGB Conc 32.2 g/dl (32-36); Mean Corpuscular Hemoglobin 31.1 pg (26-34); Mean Corpuscular Volume 96.6 fl (80-100); Mean Platelet Volume 12.8 fl (7.4-10.4); Monocytes Absolute Auto 0.3 K/mm3 (0.1-0.6); Monocytes Percent Auto 3.6 % (2.6-8.5); Neutrophils Absolute Auto 7.1 K/mm3 (1.3-6.7); Neutrophils Percent Auto 84.8 % (45.5-73.1); Platelet Count Result 49 k/mm3 (150-375); Red Blood Count 4.15 M/mm3 (4.6-6.20); Red Cell Distribution Width 17.3 % (11.5-14.5); White Blood Count 8.3 K/mm3 (4.5-10.0)
[2021-05-22] MEDS: amLODIPine BESYLATE 5 MG TABLET 10 MG PO (08:19)
[2021-05-22] MEDS: PANTOPRAZOLE 40 MG TABLET PO (08:19)
[2021-05-22] MEDS: FUROSEMIDE 40 MG TABLET PO (08:19)
[2021-05-22] MEDS: guaiFENesin 12 HR 600 MG TABCR PO (08:19)
[2021-05-22 08:31] LABS: Alanine Aminotransferase 112 U/L (4-50); Albumin Level 3.3 g/dL (3.5-5.1); Alkaline Phosphatase 80 U/L (38-126); Anion Gap 6 mmol/L (8-16); Aspartate Amino Transferase 41 U/L (17-59); Bilirubin,Total 0.8 mg/dL (0.2-1.3); Blood Urea Nitrogen 33 mg/dL (9-20); Carbon Dioxide 26 mmol/L (22-30); Chloride 102 mmol/L (98-107); Estimated CRCL calculation 40 ml/min; Estimated Glomerular Filt Rate 43; Glucose 125 mg/dL (65-110); Magnesium 2.2 mg/dL (1.6-2.3); Potassium 4.4 mmol/L (3.4-5.0); Sodium 134 mmol/L (137-145)
--- NOTE | 2021-05-22 11:30 | P.DS_ITS ---
DS: Admitting Diagnosis Discharge Date date of service 05/22/2021 at 11:30 a.m. Admitting Diagnosis COVID-19 pneumonia, thrombocytopenia, acute respiratory failure DS: Discharge Diagnosis Discharge Diagnosis (1) Acute respiratory failure with hypoxia: Code(s): J96.01 - Acute respiratory failure with hypoxia Status: Acute Assessment and Plan: * Secondary to COVID-19 pneumonia. * PE unlikely based on clinical picture, CTA reviewed with no evidence of PE in main pulmonary artery or left or right main pulmonary arteries. * Continue supplemental oxygen with goal sats 90% or above. Wean as tolerated * On room air at this time, sating 89-90% * May also have been some component of volume overload for which he has been diuresed with IV lasix. * CXR cannot exclude mild pulmonary edema. * BNP mildly elevated 259 * Echo shows normal systolic and diastolic function. (2) Pneumonia due to COVID-19 virus: Code(s): U07.1 - COVID-19; J12.82 - Pneumonia due to coronavirus disease 2018 Status: Acute Assessment and Plan: * Patient had COVID exposure 04/17/2021. * Positive test at this facility 04/21/2021. * CTA showed worsened diffuse lung disease consistent with COVID 19 pneumonia. * Remdesivir 10 day treatment ended 05/07/21 * Completed extended course dexamethasone * Supportive care to include bronchodilators, expectorants, antipyretics, incentive spirometry * Continue supplemental O2 and wean as tolerated * Continue isolation precautions * Repeat CXR 05/14 showed diffuse lung disease with worsening of the upper lobes consistent with pneumonia superimposed on severe emphysema. Overall with significant clinical improvement (3) COPD (chronic obstructive pulmonary disease): Qualifiers: COPD type: COPD with acute lower respiratory infection Qualified Code(s): J44.0 - Chronic obstructive pulmonary disease with (acute) lower respiratory infection Code(s): J44.9 - Chronic obstructive pulmonary disease, unspecified Status: Acute Assessment and Plan: * Severe emphysema noted on CTA. Not in acute exacerbation * Continue with albuterol MDI q.6 hours prn * Will benefit from maintenance inhalers prior to discharge (4) Transaminitis: Code(s): R74.01 - Elevation of levels of liver transaminase levels Status: Acute Assessment and Plan: * Likely related to acute viral illness * ALT elevated 107, otherwise levels have normalized * Continue to trend * Will obtain RUQ US. Would expect overall improvement but has been trending upward again (5) Elevated d-dimer: Code(s): R79.89 - Other specified abnormal findings of blood chemistry Status: Acute Assessment and Plan: * D-dimer was elevated on presentation. * Current D. Dimer 6.85 * CTA nondiagnostic due to poor contrast bolus timing, though no evidence of PE. * Venous Doppler negative for DVT. * Low clinical probability for PE and this is likely related to acute illness with COVID-19 * No need for further monitoring of D-dimer (6) Hyperkalemia: Code(s): E87.5 - Hyperkalemia Status: Acute Assessment and Plan: * Potassium 4.0 today * Levels have been fluctuant * Continue low-potassium diet, though he has not been compliant with this as he has mostly been ordering outside food * Monitor BMP daily (7) Thrombocytopenia: Code(s): D69.6 - Thrombocytopenia, unspecified Status: Acute Assessment and Plan: * Platelet c
--- NOTE | 2021-05-22 11:30 | PM.DS ---
DS: Admitting Diagnosis Discharge Date date of service 05/22/2021 at 11:30 a.m. Admitting Diagnosis COVID-19 pneumonia, thrombocytopenia, acute respiratory failure DS: Discharge Diagnosis Discharge Diagnosis (1) Acute respiratory failure with hypoxia: Code(s): J96.01 - Acute respiratory failure with hypoxia Status: Acute Assessment and Plan: Secondary to COVID-19 pneumonia. PE unlikely based on clinical picture, CTA reviewed with no evidence of PE in main pulmonary artery or left or right main pulmonary arteries. Continue supplemental oxygen with goal sats 90% or above. Wean as tolerated On room air at this time, sating 89-90% May also have been some component of volume overload for which he has been diuresed with IV lasix. CXR cannot exclude mild pulmonary edema. BNP mildly elevated 259 Echo shows normal systolic and diastolic function. (2) Pneumonia due to COVID-19 virus: Code(s): U07.1 - COVID-19; J12.82 - Pneumonia due to coronavirus disease 2018 Status: Acute Assessment and Plan: Patient had COVID exposure 04/17/2021. Positive test at this facility 04/21/2021. CTA showed worsened diffuse lung disease consistent with COVID 19 pneumonia. Remdesivir 10 day treatment ended 05/07/21 Completed extended course dexamethasone Supportive care to include bronchodilators, expectorants, antipyretics, incentive spirometry Continue supplemental O2 and wean as tolerated Continue isolation precautions Repeat CXR 05/14 showed diffuse lung disease with worsening of the upper lobes consistent with pneumonia superimposed on severe emphysema. Overall with significant clinical improvement (3) COPD (chronic obstructive pulmonary disease): Qualifiers: COPD type: COPD with acute lower respiratory infection Qualified Code(s): J44.0 - Chronic obstructive pulmonary disease with (acute) lower respiratory infection Code(s): J44.9 - Chronic obstructive pulmonary disease, unspecified Status: Acute Assessment and Plan: Severe emphysema noted on CTA. Not in acute exacerbation Continue with albuterol MDI q.6 hours prn Will benefit from maintenance inhalers prior to discharge (4) Transaminitis: Code(s): R74.01 - Elevation of levels of liver transaminase levels Status: Acute Assessment and Plan: Likely related to acute viral illness ALT elevated 107, otherwise levels have normalized Continue to trend Will obtain RUQ US. Would expect overall improvement but has been trending upward again (5) Elevated d-dimer: Code(s): R79.89 - Other specified abnormal findings of blood chemistry Status: Acute Assessment and Plan: D-dimer was elevated on presentation. Current D. Dimer 6.85 CTA nondiagnostic due to poor contrast bolus timing, though no evidence of PE. Venous Doppler negative for DVT. Low clinical probability for PE and this is likely related to acute illness with COVID-19 No need for further monitoring of D-dimer (6) Hyperkalemia: Code(s): E87.5 - Hyperkalemia Status: Acute Assessment and Plan: Potassium 4.0 today Levels have been fluctuant Continue low-potassium diet, though he has not been compliant with this as he has mostly been ordering outside food Monitor BMP daily (7) Thrombocytopenia: Code(s): D69.6 - Thrombocytopenia, unspecified Status: Acute Assessment and Plan: Platelet count remaining low since 05/05/21. Ranging 60-70k. Down to 41K today This is likely due to COVID-19 May also be related to HIV Will check heparin induced platelet antibodies. 4Ts score is 5, indicating intermediate probability of HIT. Patient has no evidence of thrombosis. Discussed case with respiratory services manager who reports relatively low risk for HIT. Discussed with PCP who did not feel comfortable monitoring platelets as an outpatient. Pt may benefit from referral
[2021-05-22 12:53] LABS: Glucose Point of Care 94 mg/dl (65-105)
--- NOTE | 2021-05-22 15:33 | HOMEO2EVAL ---
Evaluation was performed at [facility] Home Oxygen Evaluation RC: Home Oxygen (O2) Evaluation Start: 05/22/21 12:07 Freq: ONCE Status: Active Protocol: RPE Activity Type Activity Date Activity User E-Sign Co-Sign Detail Recorded Client Recorded Date Recorded By Document 05/22/21 14:40 [email or web address] [email or web address] 05/22/21 15:33 TALISHA Document 05/22/21 14:41 TALISHA [email or web address] 05/22/21 15:33 TALISHA Document 05/22/21 14:42 TALISHA [email or web address] 05/22/21 15:33 TALISHA Document 05/22/21 14:45 TALIHSA [email or web address] 05/22/21 15:33 TALISHA Document 05/22/21 14:46 TALISHA [email or web address] 05/22/21 15:33 TALISHA Document 05/22/21 14:47 TALISHA [email or web address] 05/22/21 15:33 TALISHA Document 05/22/21 14:48 TALISHA [email or web address] 05/22/21 15:33 TALISHA Document 05/22/21 15:00 TALISHA [email or web address] 05/22/21 15:33 TALISHA 05/22/21 05/22/21 05/22/21 14:40 14:41 14:42 Home O2 Evaluation Test Phase Resting Resting Resting Oxygen Delivery Room Air Nasal Cannula Nasal Cannula Oxygen Flow Rate (L/min) 1 2 Pulse Oximetry (90-100 %) 85 L 87 L 90 Home Oxygen Evaluation Comments Treatment Charges O2 Evaluation - Inpatient 05/22/21 05/22/21 05/22/21 14:45 14:46 14:47 Home O2 Evaluation Test Phase Exercise Exercise Exercise Oxygen Delivery Nasal Cannula Nasal Cannula Nasal Cannula Oxygen Flow Rate (L/min) 2 3 4 Pulse Oximetry (90-100 %) 84 L 86 L 87 L Home Oxygen Evaluation Comments Treatment Charges 05/22/21 05/22/21 14:48 15:00 Home O2 Evaluation Test Phase Exercise Resting Oxygen Delivery Nasal Cannula Nasal Cannula Oxygen Flow Rate (L/min) 5 2 Pulse Oximetry (90-100 %) 89 L 91 Home Oxygen Evaluation Comments Pt requires 2 L at rest and 5 L with activity Treatment Charges
[2021-05-22 16:54] LABS: Glucose Point of Care 94 mg/dl (65-105)
--- NOTE | 2021-05-29 10:09 | PC.NURSE ---
Outpatient referral started for Initial DSMT and MNT. [facility]
== END 2021-05-22 18:40 | disposition home or self-care (01) | DRG 974 ==
LOC: ANHED 05:42 → ANHIMU 08:57 → ANHICU 04-29 07:12 → ANH3MEDSUR 05-14 06:51 → ANHICU 05-27 10:36 → ANHIMU 05-27 10:36
PROVIDERS: Internal Medicine; Nurse Practitioner; Admitting Provider Internal Medicine; Emergency Provider Emergency Medicine; Visit Provider Physician Assistant
DX: U07.1 COVID-19 (principal); J96.01 Acute respiratory failure with hypoxia; J12.82 Pneumonia due to coronavirus disease 2019; B20 Human immunodeficiency virus [HIV] disease; J43.9 Emphysema, unspecified; E87.5 Hyperkalemia; D69.59 Other secondary thrombocytopenia; K21.9 Gastro-esophageal reflux disease without esophagitis; E11.9 Type 2 diabetes mellitus without complications; I12.9 Hypertensive chronic kidney disease with stage 1 through stage 4 chronic kidney disease, or unspecified chronic kidney disease; N18.9 Chronic kidney disease, unspecified; M70.21 Olecranon bursitis, right elbow; Z87.891 Personal history of nicotine dependence; Z91.14 Patient's other noncompliance with medication regimen
CPT/HCPCS: 36415; 36569; 36600; 71045; 71275; 76705; 80053; 81001; 82565; 82728; 82805; 82948; 83036; 83615; 83735; 83880; 84132; 84460; 85025; 85027; 85055; 85380; 85610; 85730; 86022; 86140; 86361; 87086; 87536; 93005; 93306; 93970; 94618; 94640; 96361; 96365; 96375; 99285; A9270; C1751; G0378; J1100; J1650; J1815; J1940; J2930; J2997; J7040; J8540; P9047; Q9967

== ENCOUNTER 2021-06-09 16:34 | Emergency (ER) | payer OTHER, SELFPAY ==
[2021-06-09 16:51] VITALS: BP 150/101; PULSE 88; RESP 18; TEMP 36.8; O2SAT 95
--- NOTE | 2021-06-09 17:53 | PC.NURSE ---
pt states he will come back tomorrow since the ed is busy
== END 2021-06-10 03:52 | disposition left against medical advice (07) ==
DX: N28.9 Disorder of kidney and ureter, unspecified (principal)
CPT/HCPCS: 99199

== ENCOUNTER 2021-06-10 15:40 | Emergency (ER) | payer OTHER, SELFPAY ==
[2021-06-10 16:39] VITALS: BP 149/104; PULSE 102; RESP 18; TEMP 37; O2SAT 93
== END 2021-06-10 18:41 | disposition left against medical advice (07) ==
DX: N19 Unspecified kidney failure (principal)
CPT/HCPCS: 99199

== ENCOUNTER 2021-07-13 12:19 | Emergency (ER) | payer OTHER, SELFPAY ==
[2021-07-13] VITALS (7 sets, daily range): BP systolic 166–195; BP diastolic 104–126; PULSE 60–90; RESP 16–26; TEMP 36.9; O2SAT 90–100
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
--- NOTE | ~2021-07-13 | US_ITS ---
EXAMINATION:US venous doppler LE BI INDICATION:Leg swelling TECHNIQUE: Multiple grayscale, color flow and Doppler images of the right and left lower extremity de ep venous systems were obtained and reviewed. COMPARISON:05/15/2021 FINDINGS: The common femoral, superficial femoral and popliteal veins demonstrate normal respiratory variation, augmentation and compressibility. Color flow is also seen within the posterior tibial, pe roneal, greater saphenous and profunda veins. IMPRESSION: 1: No lower extremity deep venous thrombosis. Reviewed, dictated and finalized at location A. ROOM SUPERVISOR
--- NOTE | ~2021-07-13 | NM_ITS ---
EXAMINATION: NM pulmonary perfusion DATE: 07/13/2021 15:28 INDICATION: Chest pain. TECHNIQUE: 3.01 mCi Tc-99m MAA by intravenous route. Scintigraphic images of the chest were obtained . COMPARISON: Chest radiograph dated 07/13/[address] dated 04/28/2021 FINDINGS: There are matched perfusion defects at the apical segments of both upper lobes, right larger than lef t with corresponding increased lucency with severe emphysematous changes in these locations on prior CT. No unmatched small and moderate-sized perfusion defects and at the lingula. IMPRESSION: 1. Intermediate probability for pulmonary embolism. Reviewed, dictated and finalized at location A. OARD TECHNICIAN
--- NOTE | 2021-07-13 12:34 | ECG_ITS ---
Measurements Intervals [place] Rate: 86 P: 49 KS: 187 QRS: 37 QRSD: 88 T: 40 QT: 363 QTc: 435 Interpretive Statements SINUS RHYTHM BASELINE ARTIFACT- I, III, AVL, AVF NORMAL ECG Electronically Signed On 07-13-2021 13:21:05 REHABILITATION SERVICES MANAGER by Vishal Cardona D.O.
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
[2021-07-13 13:11] LABS: Basophils Percent Auto 0.3 % (0.2-1.2); Eosinophils Absolute Auto 0.1 K/mm3 (0-0.3); Eosinophils Percent Auto 1.6 % (0-4.4); Hematocrit 29.2 % (42.0-52.0); Hemoglobin 9.3 g/dL (14.0-18.0); Immature Granulocyte Absolute 0.04 K/mm3 (0.00-0.031); Immature Granulocyte Percent A 0.6 % (0-0.5); Lymphocytes Absolute Auto 1.64 K/mm3 (0.9-3.2); Lymphocytes Percent Auto 24.6 % (18.3-44.2); Mean Corpuscular HGB Conc 31.8 g/dl (32-36); Mean Corpuscular Hemoglobin 29.9 pg (26-34); Mean Corpuscular Volume 93.9 fl (80-100); Mean Platelet Volume 9.5 fl (7.4-10.4); Monocytes Absolute Auto 0.8 K/mm3 (0.1-0.6); Monocytes Percent Auto 11.5 % (2.6-8.5); Neutrophils Absolute Auto 4.1 K/mm3 (1.3-6.7); Neutrophils Percent Auto 61.4 % (45.5-73.1); Platelet Count Result 178 k/mm3 (150-375); Red Blood Count 3.11 M/mm3 (4.6-6.20); Red Cell Distribution Width 15.3 % (11.5-14.5); White Blood Count 6.7 K/mm3 (4.5-10.0)
[2021-07-13 13:21] LABS: INR 1.1; Prothrombin Time 13.4 Seconds (11.1-14.7)
[2021-07-13 13:22] LABS: Partial Thromboplastin Time 37.1 SECONDS (22.3-36.8)
[2021-07-13 13:24] LABS: D Dimer 3.82 ug/mL (<0.48)
[2021-07-13 13:25] LABS: Alanine Aminotransferase 37 U/L (4-50); Albumin Level 3.7 g/dL (3.5-5.1); Alkaline Phosphatase 81 U/L (38-126); Anion Gap 7 mmol/L (8-16); Aspartate Amino Transferase 39 U/L (17-59); Bilirubin,Total 0.3 mg/dL (0.2-1.3); Blood Urea Nitrogen 30 mg/dL (9-20); Carbon Dioxide 24 mmol/L (22-30); Chloride 106 mmol/L (98-107); Estimated CRCL calculation 27 ml/min; Estimated Glomerular Filt Rate 28; Glucose 97 mg/dL (65-110); Lipase 228 U/L (23-300); Potassium 3.7 mmol/L (3.4-5.0); Sodium 137 mmol/L (137-145)
[2021-07-13 13:37] LABS: Troponin I < 0.012 ng/mL (0.000-0.034)
[2021-07-13] MEDS: SODIUM CHLORIDE 0.9% IV 1,000 ML 999 ML IV CONT (14:29)
[2021-07-13] MEDS: amLODIPine BESYLATE 5 MG TABLET 10 MG PO (15:33)
[2021-07-13 16:12] LABS: Troponin I < 0.012 ng/mL (0.000-0.034)
[2021-07-13] MEDS: cloNIDine HCL 0.1 MG TABLET 0.2 MG PO (16:35)
--- NOTE | 2021-07-13 18:48 | PC.NURSE ---
Patient signed AMA for admission with Dr. Lezama.
[2021-07-13 18:53] LABS: Troponin I < 0.012 ng/mL (0.000-0.034)
== END 2021-07-13 18:47 | disposition left against medical advice (07) ==
PROVIDERS: Emergency Medicine; Emergency Provider General Practice
DX: I12.9 Hypertensive chronic kidney disease with stage 1 through stage 4 chronic kidney disease, or unspecified chronic kidney disease (principal); N18.9 Chronic kidney disease, unspecified; N17.9 Acute kidney failure, unspecified; R07.89 Other chest pain; J44.9 Chronic obstructive pulmonary disease, unspecified; Z21 Asymptomatic human immunodeficiency virus [HIV] infection status; Z87.891 Personal history of nicotine dependence
CPT/HCPCS: 36415; 71046; 78580; 80053; 83690; 84484; 85025; 85380; 85610; 85730; 93005; 93970; 96361; 96374; 99284; A9270; A9540; J0131; J7030

== ENCOUNTER 2022-04-16 20:12 | Emergency (ER) | payer OTHER, SELFPAY ==
[2022-04-16 20:21] VITALS: BP 164/97; PULSE 89; RESP 20; TEMP 37.2; O2SAT 97
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
[2022-04-16 21:06] LABS: Influenza A QL RT-PCR Positive (Negative); Influenza B QL RT-PCR Negative (Negative); RSV RNA, RT-PCR Negative (Negative); SARS-CoV-2 RNA PCR Negative
[2022-04-16] MEDS: OSELTAMIVIR PHOSPHATE 75 MG CAPSULE PO (21:19)
== END 2022-04-16 21:21 | disposition home or self-care (01) ==
PROVIDERS: Emergency Provider Emergency Medicine
DX: J10.1 Influenza due to other identified influenza virus with other respiratory manifestations (principal); Z20.822 Contact with and (suspected) exposure to COVID-19; N18.9 Chronic kidney disease, unspecified; J44.9 Chronic obstructive pulmonary disease, unspecified; Z21 Asymptomatic human immunodeficiency virus [HIV] infection status; Z87.891 Personal history of nicotine dependence; Z79.899 Other long term (current) drug therapy
CPT/HCPCS: 87637; 99283; A9270

== ENCOUNTER 2022-11-19 10:56 | Emergency (ER) | payer MEDICARE, SELFPAY ==
--- NOTE | ~2022-11-19 | NM_ITS ---
EXAMINATION: NM pulmonary perfusion DATE: 11/19/2022 14:33 INDICATION: COVID positive. Shortness of breath. Positive d-dimer. TECHNIQUE: 5.5 mCi Tc-99m MAA by intravenous route. Scintigraphic images of the chest were obtained. COMPARISON: Chest radiograph dated 11/19/2022, VQ scan dated 07/13/[address] dated 11/21/2020 FINDINGS: Density or small matched perfusion defects at the bilateral apices with corresponding emphysema with increased lucency in these regions on prior chest radiograph and CT. There is now a single large perf usion defect at the lingula where previously there appear to be small and moderate-sized perfusion de fects. No other new perfusion defects appreciated. IMPRESSION: 1. Nondiagnostic (low or intermediate) probability for pulmonary embolism. Reviewed, dictated and finalized at location A.
--- NOTE | ~2022-11-19 | XR_ITS ---
Clinical Indication: Cough PA and lateral views of the chest: Comparison: 07/13/2021 Findings: The lungs are clear, without evidence of focal consolidation or pleural effusion. Cardiome diastinal silhouette is within normal limits. Bones and soft tissues are unremarkable. Impression: Normal chest. Reviewed, dictated and finalized at location . Impression: Normal chest.
--- NOTE | ~2022-11-19 | US_ITS ---
EXAMINATION: US venous doppler LE DATE: 11/19/2022 17:17 INDICATION: Shortness of breath. COVID positive. Positive d-dimer. TECHNIQUE: Grayscale ultrasound images without and with compression and Doppler ultrasound images of the bilateral lower extremity veins were obtained. COMPARISON: None. FINDINGS: The visualized portions of right common femoral vein, profunda (deep) femoral vein, femoral vein, pop liteal vein, posterior tibial veins, peroneal veins, gastrocnemius vein and greater saphenous vein ou tflow are patent. The visualized portions of left common femoral vein, profunda femoral vein, femoral vein, popliteal v ein, posterior tibial veins, peroneal veins, gastrocnemius vein and greater saphenous vein outflow ar e patent. IMPRESSION: 1. No deep venous thrombosis in either lower limb. Reviewed, dictated and finalized at location A.
[2022-11-19 11:31] VITALS: BP 142/98; PULSE 65; RESP 20; O2SAT 100
--- NOTE | 2022-11-19 11:46 | ECG_ITS ---
Measurements Intervals [place] Rate: 63 P: 50 MA: 195 QRS: 20 QRSD: 90 T: 12 QT: 411 QTc: 422 Interpretive Statements SINUS RHYTHM NORMAL ELECTROCARDIOGRAM COMPARED TO ECG 07/13/2021 12:30:19 NO SIGNIFICANT CHANGES Electronically Signed On 11-20-2022 16:53:30 CDT by Teddy Hull M.D.
[2022-11-19] MEDS: ACETAMINOPHEN 500 MG TABLET 1000 MG PO (12:05)
[2022-11-19 12:09] VITALS: BP 159/135; PULSE 65; TEMP 36.6; O2SAT 99
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
[2022-11-19 12:20] LABS: Basophils Percent Auto 0.3 % (0.2-1.2); Eosinophils Percent Auto 1.1 % (0-4.4); Hematocrit 34.6 % (42.0-52.0); Hemoglobin 11.2 g/dL (14.0-18.0); Immature Granulocyte Absolute 0.01 K/mm3 (0.00-0.031); Immature Granulocyte Percent A 0.3 % (0-0.5); Lymphocytes Absolute Auto 0.87 K/mm3 (0.9-3.2); Lymphocytes Percent Auto 23.7 % (18.3-44.2); Mean Corpuscular HGB Conc 32.4 g/dl (32-36); Mean Corpuscular Hemoglobin 30.4 pg (26-34); Mean Platelet Volume 10.3 fl (7.4-10.4); Monocytes Absolute Auto 0.5 K/mm3 (0.1-0.6); Monocytes Percent Auto 12.5 % (2.6-8.5); Neutrophils Absolute Auto 2.3 K/mm3 (1.3-6.7); Neutrophils Percent Auto 62.1 % (45.5-73.1); Platelet Count Result 135 k/mm3 (150-375); Red Blood Count 3.68 M/mm3 (4.6-6.20); Red Cell Distribution Width 14.8 % (11.5-14.5); White Blood Count 3.7 K/mm3 (4.5-10.0)
[2022-11-19 12:23] LABS: Influenza A QL RT-PCR Negative (Negative); Influenza B QL RT-PCR Negative (Negative); SARS-CoV-2 RNA PCR Positive (Negative)
[2022-11-19 12:27] LABS: Alanine Aminotransferase 56 U/L (6-50); Albumin Level 3.5 g/dL (3.5-5.1); Alkaline Phosphatase 70 U/L (38-126); Anion Gap 5 mmol/L (8-16); Aspartate Amino Transferase 53 U/L (17-59); Bilirubin,Total 0.4 mg/dL (0.2-1.3); Blood Urea Nitrogen 44 mg/dL (9-20); Calcium 8.1 mg/dL (8.4-10.2); Carbon Dioxide 27 mmol/L (22-30); Chloride 105 mmol/L (98-107); Estimated CRCL calculation 17 ml/min; Estimated Glomerular Filt Rate 16; Glucose 93 mg/dL (65-110); Potassium 4.3 mmol/L (3.4-5.0); Sodium 137 mmol/L (137-145)
[2022-11-19 12:39] LABS: Troponin I < 0.012 ng/mL (0.000-0.034)
[2022-11-19 13:19] LABS: D Dimer 2.65 ug/mL (<0.48)
[2022-11-19 14:02] VITALS: BP 125/93; PULSE 67; RESP 16; O2SAT 100
--- NOTE | 2022-11-19 14:30 | PC.NURSE ---
pt in CAT scan at this time.
--- NOTE | 2022-11-19 15:05 | PC.NURSE ---
Pt returned to room from US
[2022-11-19 16:53] VITALS: BP 150/97; PULSE 79; RESP 18; O2SAT 99
== END 2022-11-19 16:56 | disposition left against medical advice (07) ==
PROVIDERS: Emergency Provider Physician Assistant
DX: U07.1 COVID-19 (principal); J44.9 Chronic obstructive pulmonary disease, unspecified; N18.9 Chronic kidney disease, unspecified; Z21 Asymptomatic human immunodeficiency virus [HIV] infection status; R06.02 Shortness of breath; Z79.899 Other long term (current) drug therapy; Z87.891 Personal history of nicotine dependence
CPT/HCPCS: 36415; 71046; 78580; 80053; 84484; 85025; 85380; 87636; 93005; 93970; 99284; A9270; A9540

== ENCOUNTER 2023-03-10 08:26 | Emergency (ER) | payer MEDICARE, SELFPAY ==
--- NOTE | ~2023-03-10 | CT_ITS ---
EXAMINATION: CT abdomen pelvis wo con DATE: 03/10/2023 14:06 INDICATION: Hematuria. Acute kidney insufficiency. TECHNIQUE: Computed tomography (CT) of the abdomen and pelvis was performed without intravenous contr ast. Automated exposure control and iterative reconstruction technique were employed. Exam dose: 555 .22 mGy-cm total exam DLP. COMPARISON: None. FINDINGS: Bilateral bullous emphysema. No infiltrate or consolidation of the included lower lung zone s. Normal heart size. No pericardial or pleural effusion. The liver, gallbladder, bile ducts, pancreas, pancreatic duct, spleen, and adrenal glands, kidneys and ureters are unremarkable on this limited non contrast examination. No urinary tract calculus or hydroureteronephrosis is detected. There is atherosclerotic calcification of the abdominal aorta and iliac arteries. No abdominal aortic aneurysm. No intraperitoneal or retroperitoneal or pelvic mass lesion or adenopathy or ascites. There is prominent prostate enlargement and mild diffuse bladder wall thickening. Bilateral fat-containing inguinal hernias. Small sliding hiatal hernia. Normal appendix. No bowel obstruction There is nonspecific thickening of the wall of the cecum and ascending colon with mild pericolic fat stranding in these areas, suggesting nonspecific colitis the small bowel appears unremarkable. There is very severe degenerative disc disease at L4-5 and L5-S1 there is prominent degenerative spur ring at the apophyseal joints of the lumbar spine. No suspicious osteolytic or osteoblastic lesions are noted. IMPRESSION: Bullous emphysema Small sliding hiatal hernia Normal appendix Nonspecific thickening of the wall of cecum and ascending colon and associated mild pericolic fat str anding; consider infectious or inflammatory colitis, less likely ischemic colitis No urinary tract calculus or hydroureteronephrosis Reviewed, dictated and finalized at [facility]. Reviewed, dictated and finalized at location B. IMPRESSION: Bullous emphysema Small sliding hiatal hernia Normal appendix Nonspecific thickening of the wall of cecum and ascending colon and associated mild pericolic fat stranding; consider infectious or inflammatory colitis, less likely ischemic colitis No urinary tract calculus or hydroureteronephrosis
--- NOTE | ~2023-03-10 | US_ITS ---
Duplex Sonography of the bilateral lower extremities: Indication: Swelling Sagittal and transverse B-mode images as well as color-flow imaging were performed on the right and l eft femoral and popliteal veins. B-mode examination was done without and with compression in the tra nsverse plane. There is good visualization of the bilateral common femoral, proximal profunda femora l, superficial femoral, greater saphenous, and popliteal veins. Normal flow was seen on color-flow im aging. Normal compressibility was demonstrated. Visualized calf veins are also patent. Impression: No evidence of deep vein thrombosis involving either lower extremity. Reviewed, dictated and finalized at location M. Impression: No evidence of deep vein thrombosis involving either lower extremit y.
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
--- NOTE | ~2023-03-10 | NM_ITS ---
EXAMINATION: NM pulmonary perfusion DATE: 03/10/2023 13:43 INDICATION: Chest pain. Elevated d-dimer. TECHNIQUE: 5.4 mCi Tc-99m MAA by intravenous route. Scintigraphic images of the chest were obtained. COMPARISON: Chest radiograph dated 03/10/2023 and VQ scan dated 11/19/2022 FINDINGS: No interval change in small perfusion defects at the bilateral apices with matched severe emphysemato us changes at these locations on prior chest CT. Also without significant interval change is a large unmatched perfusion defect at the lingula. No new perfusion defects identified. IMPRESSION: 1. No interval change which remains nondiagnostic (low or intermediate) probability for pulmonary em bolism. Reviewed, dictated and finalized at location A. IMPRESSION: 1. No interval change which remains nondiagnostic (low or intermediate) probab ility for pulmonary embolism.
--- NOTE | ~2023-03-10 | XR_ITS ---
Left foot Technique: AP, oblique, and lateral views were obtained. Clinical History: Pain Findings: No acute fracture or dislocation is seen. Osseous alignment is anatomic. There is moderate degenerative change of the first metatarsophalangeal joint. There is a 9 mm linear foreign body at th e lateral aspect of the great toe at the level of the distal phalanx.. Impression: 9 mm linear foreign body at the lateral aspect of the great toe at the level of the distal phalanx. Moderate degenerative change at the first MTP joint. Reviewed, dictated and finalized at location M. Impression: 9 mm linear foreign body at the lateral aspect of the great toe at the level of the distal phalanx. Moderate degenerative change at the first MTP joint.
--- NOTE | ~2023-03-10 | XR_ITS ---
Right foot Technique: AP, oblique, and lateral views were obtained. Clinical History: Pain Findings: No acute fracture or dislocation is seen. Osseous alignment is anatomic. There is mild to m oderate degenerative change of the first MTP joint. Remaining joint spaces are preserved. Soft tissue s are unremarkable. Impression: Mild to moderate degenerative change of the first MTP joint. Reviewed, dictated and finalized at location M. Impression: Mild to moderate degenerative change of the first MTP joint.
[2023-03-10 09:05] VITALS: BP 167/98; PULSE 65; RESP 18; TEMP 36.3; O2SAT 100
--- NOTE | 2023-03-10 11:35 | ECG_ITS ---
Measurements Intervals [place] Rate: 59 P: 21 GA: 145 QRS: 31 QRSD: 105 T: 38 QT: 471 QTc: 467 Interpretive Statements SINUS BRADYCARDIA BASELINE ARTIFACT LOW-VOLTAGE QRS IN LIMB LEADS BORDERLINE ECG COMPARED TO ECG 11/19/2022 12:02:01 SINUS BRADYCARDIA NOW PRESENT Electronically Signed On 03-10-2023 18:31:49 CDT by Jeancarlos Rangel M.D.
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
[2023-03-10 12:07] LABS: Basophils Percent Auto 0.5 % (0.2-1.2); Eosinophils Absolute Auto 0.1 K/mm3 (0-0.3); Eosinophils Percent Auto 1.8 % (0-4.4); Hematocrit 27.1 % (42.0-52.0); Hemoglobin 8.7 g/dL (14.0-18.0); Immature Granulocyte Absolute 0.03 K/mm3 (0.00-0.031); Immature Granulocyte Percent A 0.5 % (0-0.5); Lymphocytes Absolute Auto 1.09 K/mm3 (0.9-3.2); Mean Corpuscular HGB Conc 32.1 g/dl (32-36); Mean Corpuscular Hemoglobin 29.2 pg (26-34); Mean Corpuscular Volume 90.9 fl (80-100); Mean Platelet Volume 10.2 fl (7.4-10.4); Monocytes Absolute Auto 0.3 K/mm3 (0.1-0.6); Monocytes Percent Auto 6.2 % (2.6-8.5); Neutrophils Absolute Auto 3.9 K/mm3 (1.3-6.7); Platelet Count Result 158 k/mm3 (150-375); Red Blood Count 2.98 M/mm3 (4.6-6.20); Red Cell Distribution Width 15.6 % (11.5-14.5); White Blood Count 5.5 K/mm3 (4.5-10.0)
[2023-03-10 12:18] LABS: Magnesium 2.1 mg/dL (1.6-2.3); Prothrombin Time 13.8 Seconds (11.1-14.7)
[2023-03-10 12:19] LABS: Partial Thromboplastin Time 29.5 SECONDS (22.3-36.8)
[2023-03-10 12:27] LABS: Alanine Aminotransferase 42 U/L (6-50); Albumin Level 4.1 g/dL (3.5-5.1); Alkaline Phosphatase 61 U/L (38-126); Anion Gap 18 mmol/L (8-16); Aspartate Amino Transferase 40 U/L (17-59); Bilirubin,Total 0.7 mg/dL (0.2-1.3); Blood Urea Nitrogen 116 mg/dL (9-20); Calcium 7.6 mg/dL (8.4-10.2); Carbon Dioxide 16 mmol/L (22-30); Chloride 103 mmol/L (98-107); Estimated CRCL calculation 4 ml/min; Estimated Glomerular Filt Rate 3; Glucose 111 mg/dL (65-110); Lipase 296 U/L (23-300); NT Pro B Type Natriuretic Pept 6370 pg/mL (19.9-100); Potassium 4.7 mmol/L (3.4-5.0); Sodium 137 mmol/L (137-145)
[2023-03-10 12:30] LABS: Troponin I 0.017 ng/mL (0.000-0.034)
[2023-03-10 12:33] LABS: D Dimer 10.98 ug/mL (<0.48)
[2023-03-10] MEDS: amLODIPine BESYLATE 5 MG TABLET 10 MG PO (13:01)
[2023-03-10 13:38] LABS: Appearance Urine Cloudy (Clear); Bacteria Urine None Seen /hpf; Bilirubin Urine Negative (Negative); Blood Urine 3+ (Negative); Color Urine Yellow (Yellow); Glucose Urine UA Negative (Negative); Ketones Urine Negative (Negative); Leukocyte Esterase Ur Trace LEU/UL (Negative); Nitrate Urine Negative (Negative); Protein Urine 4+ mg/dL (Negative); RBC Urine >100 /hpf (0-2); Specific Grav Ur 1.014 (1.001-1.035); Squamous Epithelial Cell Urine Occasional /hpf (Few); Urobilinogen Urine 0.2 mg/dL (<2.0); pH Urine 5.5 (5.0-9.0)
[2023-03-10 13:40] LABS: Add Urine Microscopic? YES
[2023-03-10 15:17] LABS: Troponin I < 0.012 ng/mL (0.000-0.034)
[2023-03-10] MEDS: metroNIDAZOLE 500 MG/ISO 100ML 500 MG/100 ML BAG 100 MG IVPB (15:20)
== END 2023-03-10 16:17 | disposition left against medical advice (07) ==
PROVIDERS: Emergency Provider Physician Assistant
DX: N17.9 Acute kidney failure, unspecified (principal); R79.89 Other specified abnormal findings of blood chemistry; I12.9 Hypertensive chronic kidney disease with stage 1 through stage 4 chronic kidney disease, or unspecified chronic kidney disease; E11.22 Type 2 diabetes mellitus with diabetic chronic kidney disease; N18.9 Chronic kidney disease, unspecified; R82.90 Unspecified abnormal findings in urine; K52.9 Noninfective gastroenteritis and colitis, unspecified; D64.9 Anemia, unspecified; R07.89 Other chest pain; B20 Human immunodeficiency virus [HIV] disease; K02.9 Dental caries, unspecified; J44.9 Chronic obstructive pulmonary disease, unspecified; F17.210 Nicotine dependence, cigarettes, uncomplicated; Z79.899 Other long term (current) drug therapy
CPT/HCPCS: 36415; 71046; 73630; 74176; 78580; 80053; 81001; 83690; 83735; 83880; 84484; 85025; 85380; 85610; 85730; 87086; 93005; 93970; 96365; 96367; 99284; A9270; A9540; J0696; J1836

== ENCOUNTER 2023-03-10 17:17 | Emergency (ER) | payer MEDICARE, SELFPAY ==
[2023-03-10 17:21] VITALS: BP 156/99; PULSE 90; RESP 18; TEMP 36; O2SAT 98
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
[2023-03-11] VITALS (7 sets, daily range): BP systolic 134–167; BP diastolic 92–110; PULSE 74–87; RESP 14–20; TEMP 36.1–37; O2SAT 97–100
--- NOTE | 2023-03-11 08:18 | PC.NURSE ---
Patient provided med list via text message. Patient reports I take them all at once in the morning .
--- NOTE | 2023-03-11 11:26 | PC.NURSE ---
[facility] called for patient update. Still no bed available at this time.
--- NOTE | 2023-03-11 11:50 | PC.NURSE ---
Lunch meal ordered by
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
--- NOTE | 2023-03-11 15:39 | PC.NURSE ---
spoke to Dr Le, noticed many orders in chart. d/t pt being deflected overnight. Asked if these orders were correct and to be completed. provider stated that the pt was to be admitted, I asked if I should place admit order, provider gave approval to place order. Mimi asked for update on transfer time. unable to give update on time for bed assingment.
[2023-03-11 15:57] LABS: Basophils Percent Auto 0.5 % (0.2-1.2); Eosinophils Absolute Auto 0.1 K/mm3 (0-0.3); Eosinophils Percent Auto 1.4 % (0-4.4); Hematocrit 25.6 % (42.0-52.0); Hemoglobin 8.2 g/dL (14.0-18.0); Immature Granulocyte Absolute 0.02 K/mm3 (0.00-0.031); Immature Granulocyte Percent A 0.4 % (0-0.5); Lymphocytes Absolute Auto 1.21 K/mm3 (0.9-3.2); Lymphocytes Percent Auto 21.8 % (18.3-44.2); Mean Corpuscular Volume 90.5 fl (80-100); Mean Platelet Volume 10.1 fl (7.4-10.4); Monocytes Absolute Auto 0.5 K/mm3 (0.1-0.6); Monocytes Percent Auto 8.3 % (2.6-8.5); Neutrophils Absolute Auto 3.8 K/mm3 (1.3-6.7); Neutrophils Percent Auto 67.6 % (45.5-73.1); Platelet Count Result 143 k/mm3 (150-375); Red Blood Count 2.83 M/mm3 (4.6-6.20); Red Cell Distribution Width 15.6 % (11.5-14.5); White Blood Count 5.6 K/mm3 (4.5-10.0)
--- NOTE | 2023-03-11 15:58 | PC.NURSE ---
x4 attempts at IV access unsuccessful by nursing. IV meds discontinued. Will have US place line if needed.
--- NOTE | 2023-03-11 16:15 | PC.NURSE ---
Alisa with [facility] transfer sent called and provided room for patient at [facility]. Room 303-1, report to be called.
[2023-03-11 16:27] LABS: Alanine Aminotransferase 39 U/L (6-50); Alkaline Phosphatase 58 U/L (38-126); Anion Gap 17 mmol/L (8-16); Aspartate Amino Transferase 39 U/L (17-59); Bilirubin,Total 0.6 mg/dL (0.2-1.3); Blood Urea Nitrogen > 120 mg/dL (9-20); Calcium 7.2 mg/dL (8.4-10.2); Carbon Dioxide 18 mmol/L (22-30); Chloride 102 mmol/L (98-107); Glucose 95 mg/dL (65-110); Potassium 4.6 mmol/L (3.4-5.0); Sodium 137 mmol/L (137-145)
[2023-03-11 16:55] LABS: Estimated CRCL calculation 4 ml/min; Estimated Glomerular Filt Rate 3
--- NOTE | 2023-03-11 18:06 | PC.NURSE ---
Transport here for patient, report given and all belongings sent with patient.
== END 2023-03-11 18:06 | disposition short-term general hospital (02) ==
PROVIDERS: Student in an Organized Health Care Education/Training Program; Emergency Provider Student in an Organized Health Care Education/Training Program
DX: I12.9 Hypertensive chronic kidney disease with stage 1 through stage 4 chronic kidney disease, or unspecified chronic kidney disease (principal); N18.9 Chronic kidney disease, unspecified; N17.9 Acute kidney failure, unspecified; N39.0 Urinary tract infection, site not specified; B20 Human immunodeficiency virus [HIV] disease; F17.210 Nicotine dependence, cigarettes, uncomplicated
CPT/HCPCS: 36415; 80053; 85025; 99285

== ENCOUNTER 2024-01-16 14:04 | Inpatient (IN) | payer MEDICARE, MEDICAID, SELFPAY ==
[2024-01-16] VITALS (18 sets, daily range): BP systolic 108–123; BP diastolic 66–81; PULSE 57–74; RESP 16–22; TEMP 36.8–37.8; O2SAT 91–100
--- NOTE | ~2024-01-16 | CT_ITS ---
EXAMINATION: CT chest abdomen pelvis w con DATE: 01/16/2024 17:49 INDICATION: Sepsis, unknown source. Known dialysis patient. . TECHNIQUE: Computed tomography (CT) of the chest, abdomen, and pelvis was performed with 100 mL Omnip aque-350 intravenous contrast. Automated exposure control and iterative reconstruction technique were employed. The dose-length product was 976.53 mGy-cm. COMPARISON: X-ray chest, same date; CT abdomen pelvis 03/10/2023; CTA chest 09/16/2016. FINDINGS: CHEST: Thoracic aorta: Ectasia of the descending thoracic aorta, measuring up to 3.8 cm. No dissection. Lung parenchyma and airways: Emphysematous change. Mild septal thickening. Minimal perihilar atelecta sis. Patent airways. Thoracic inlet, axillae and chest wall: No thyroid or soft tissue mass. No axillary lymphadenopathy. Mediastinum: Mediastinal and right hilar lymphadenopathy. Dilated central pulmonary arteries, as can be seen with pulmonary arterial hypertension. Heart and pericardium: Cardiomegaly. No pericardial effusion. Aortic valve calcification. Coronary artery calcifications: Heavy. Pleura: No effusion or mass. Thoracic bones: No acute osseous finding in the chest. ABDOMEN/PELVIS: Liver: Enlarged. Biliary/Gallbladder: Mild pericholecystic fluid. No bile duct dilation. Pancreas: No mass or duct dilation. Spleen: Normal. Adrenals:No mass. Kidneys: No suspicious mass, obstructing stone, or hydronephrosis moderate bilateral perinephric stra nding. Bilateral renal atrophy. GI tract: Mild distal esophageal and gastric wall edema. No small or large bowel dilation. Appendix n ot confidently visualized. Mesentery/Peritoneum: Small volume ascites. No mass or free air. Retroperitoneum: No mass Atherosclerotic abdominal aortic and/or arterial calcifications. Pelvis: Mostly empty urinary bladder. Soft Tissues: Soft tissues and body wall unremarkable. Abdominopelvic bones: No acute osseous finding in the abdomen/pelvis. IMPRESSION: Mild interstitial edema. Trace bilateral pleural effusions. Mediastinal and right hilar lymphadenopathy. Mild esophagitis/gastritis Hepatomegaly. Mild pericholecystic fluid, may be related to ascites, correlate with right upper quadrant pain and b iliary labs. Small volume ascites. Reviewed, dictated and finalized at location K. IMPRESSION: Mild interstitial edema. Trace bilateral pleural effusions. Mediastinal and right hilar lymphadenopathy. Mild esophagitis/gastritis Hepatomegaly. Mild pericholecystic fluid, may be related to ascites, correlate with right upp er quadrant pain and biliary labs. Small volume ascites.
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
--- NOTE | 2024-01-16 14:20 | ECG_ITS ---
Test Date: 2024-01-16 15:33:36 Measurements Intervals [place] Rate: 64 P: 28 GA: 175 QRS: 62 QRSD: 120 T: 41 QT: 433 QTc: 449 Interpretive Statements SINUS RHYTHM WITHIN NORMAL LIMITS No previous ECG available for comparison Electronically Signed On 01-18-2024 07:10:56 CDT by Teddy Hull M.D.
[2024-01-16 14:58] LABS: Basophils Percent Auto 0.2 % (0.2-1.2); Eosinophils Percent Auto 0.1 % (0-4.4); Hematocrit 28.3 % (42.0-52.0); Hemoglobin 9.2 g/dL (14.0-18.0); Immature Granulocyte Absolute 0.13 K/mm3 (0.00-0.031); Immature Granulocyte Percent A 1.3 % (0-0.5); Immature Platelet Fraction Pct 9.2 % (0.9-11.2); Lymphocytes Absolute Auto 0.67 K/mm3 (0.9-3.2); Lymphocytes Percent Auto 6.9 % (18.3-44.2); Mean Corpuscular HGB Conc 32.5 g/dl (32-36); Mean Corpuscular Hemoglobin 31.5 pg (26-34); Mean Corpuscular Volume 96.9 fl (80-100); Mean Platelet Volume 12.3 fl (7.4-10.4); Monocytes Absolute Auto 0.8 K/mm3 (0.1-0.6); Monocytes Percent Auto 8.5 % (2.6-8.5); Neutrophils Absolute Auto 8.1 K/mm3 (1.3-6.7); Platelet Count Result 56 k/mm3 (150-375); Red Blood Count 2.92 M/mm3 (4.6-6.20); Red Cell Distribution Width 16.2 % (11.5-14.5); White Blood Count 9.8 K/mm3 (4.5-10.0)
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
[2024-01-16 15:08] LABS: INR 1.2; Lactic Acid Reflex 0.7 mmol/L (0.7-2.0); Prothrombin Time 15.3 Seconds (11.1-14.7)
[2024-01-16 15:09] LABS: Alanine Aminotransferase 38 U/L (6-50); Albumin Level 3.9 g/dL (3.5-5.1); Alkaline Phosphatase 61 U/L (38-126); Anion Gap 15 mmol/L (4-12); Aspartate Amino Transferase 43 U/L (17-59); Bilirubin,Total 0.7 mg/dL (0.2-1.3); Blood Urea Nitrogen 57 mg/dL (9-20); Calcium 8.8 mg/dL (8.4-10.2); Carbon Dioxide 29 mmol/L (22-30); Chloride 89 mmol/L (98-107); Estimated CRCL calculation 7 ml/min; Estimated Glomerular Filt Rate 6; Glucose 104 mg/dL (65-110); Partial Thromboplastin Time 32.9 Seconds (22.3-36.8); Platelet Estimate Decreased (Adequate); Potassium 4.2 mmol/L (3.4-5.0); Schistocytes None Seen; Sodium 133 mmol/L (137-145)
[2024-01-16 15:27] LABS: CRP 16.8 mg/dL (<1.0)
[2024-01-16] MEDS: CEFEPIME 2 GM/NS 50 ML 2 GM/50 ML BAG IVPB (15:29)
[2024-01-16] MEDS: AZITHROMYCIN 500 MG/NS 250 ML 500 MG/250 ML BAG 250 MG IVPB (15:29)
[2024-01-16] MEDS: LACTATED RINGERS 1,000 ML 999 ML IV CONT (15:30)
[2024-01-16] MEDS: IPRATROPIUM 0.5 MG/ALBUTEROL SULFATE 2.5 MG AMPUL.NEB 3 ML INHALATION ×3 (15:30→16:20)
[2024-01-16] MEDS: methylPREDNISolone SOD SUCC 125 MG VIAL IV PUSH (15:40)
[2024-01-16] MEDS: MAGNESIUM SULF 2 GM/WATER 50ML 2 GM/50 ML BAG IVPB (15:49)
[2024-01-16] MEDS: VANCOMYCIN 1,750 MG/NS 500 ML 1,750 MG/500 ML BAG 250 MG IVPB (16:58)
[2024-01-16 17:13] LABS: Alveolar/Arterial O2 Gradient 135.7 mmHg; Base Excess ABG 2.1 mEq/l (+/-2.0); Fractional Inspired Oxygen 32 %; HCO3 ABG 27.1 mEq/l (22.0-26.0); Oxygen Content ABG 9.3 %vol (16.0-22.0); PCO2 ABG 44.5 mmHg (35.0-45.0); PO2 FiO2 Ratio Arterial Blood 1.26 %; Total Hemoglobin 9.2 g/dL (12.0-18.0); pH ABG 7.403 (7.350-7.450)
[2024-01-16 17:22] LABS: PO2 ABG 40.4 mmHg (80.0-100.0)
[2024-01-16 17:23] LABS: Modified Allen's Test Pass; Oxygen Saturation ABG 75.5 % (95.0-100.0); Oxyhemoglobin 71.4 % THb (90.0-100.0); Site Drawn LEFT RADIAL
[2024-01-16 17:24] LABS: MRSA (PCR) DETECTED (NOT DETECTE)
[2024-01-16 17:24] LABS: Device NASAL CANNULA
--- NOTE | 2024-01-16 21:45 | PC.NURSE ---
[id number] [facility] transfer center calls to get triage info.
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
[2024-01-17] VITALS (42 sets, daily range): BP systolic 98–156; BP diastolic 72–93; PULSE 57–69; RESP 15–24; TEMP 35.9–37; O2SAT 60–100; BMI 26.2
--- NOTE | 2024-01-17 07:01 | PC.NURSE ---
Patient used BSC with minimal assistance. Patient back in bed at this time.
--- NOTE | 2024-01-17 08:11 | PM.IMPN ---
Progress Note: A&P Assessment and Plan (1) End-stage renal disease on hemodialysis: Code(s): N18.6 - End stage renal disease; Z99.2 - Dependence on renal dialysis Status: Acute (2) Acute hypoxemic respiratory failure: Code(s): J96.01 - Acute respiratory failure with hypoxia Status: Acute (3) HIV disease: Code(s): B20 - Human immunodeficiency virus [HIV] disease Status: Acute Plan This is a 68-year-old male with past medical history significant for HIV/ aids, end-stage renal disease on hemodialysis, rectal CA, hypertension, COPD. Patient presents to the emergency room with 3-4 days of diarrhea generalized weakness and 1 episode of fever. at the time of my visit patient. Initially was found to have to be hypoxic and placed on high-flow oxygen. Preliminary workup has been CT of chest abdomen and pelvis with bilateral trace pleural effusions. (1) Acute hypoxemic respiratory failure: Code(s): J96.01 - Acute respiratory failure with hypoxia Status: Acute Assessment and Plan: Possible due COPD exacerbation CT shows interstitial edema, trace bilateral pleural effusion Patient has end-stage renal disease on dialysis, consult preschool teacher's assistant for dialysis Provide O2 therapy to keep pulse ox above 94 (2) HIV disease: Code(s): B20 - Human immunodeficiency virus [HIV] disease Status: Acute Assessment and Plan: patient is on HAART follow-up in outpatient setting (3) GERD (gastroesophageal reflux disease): Code(s): K21.9 - Gastro-esophageal reflux disease without esophagitis Status: Acute Assessment and Plan: PPI (4) COPD (chronic obstructive pulmonary disease): Qualifiers: COPD type: COPD with acute lower respiratory infection Qualified Code(s): J44.0 - Chronic obstructive pulmonary disease with (acute) lower respiratory infection Code(s): J44.9 - Chronic obstructive pulmonary disease, unspecified Status: Acute Assessment and Plan: breathing treatments Possible COPD exacerbation due to acute better bronchitis versus atypical pneumonia Patient has productive cough with with fever; CT shows interstitial changes pt is on azithromycin and cefepime and vancomycin Follow MRSA screening, prolactin level (5) End-stage renal disease on hemodialysis: Code(s): N18.6 - End stage renal disease; Z99.2 - Dependence on renal dialysis Status: Acute Assessment and Plan: Consult preschool teacher's assistant for dialysis continue hemodialysis Diarrhea Patient has a fever and diarrhea Follow-up stool culture, white blood cell stool smear Essential hypertension Hold hypertension medications, blood pressure on lower side Subjective Date/time seen: 01/17/24 08:11 Interval history: I saw examined patient today, patient feels better, patient still has some cough with scant phlegm. Patient is afebrile, blood pressure stable over the night, Review of Systems Review of Systems: ROS negative except above Exam Narrative: GENERAL: Pleasant, in no acute distress. Well-nourished. - EYES: EOMI. Anicteric. - HENT: Moist mucous membranes. - LUNGS: Distant better some bilateral, coarse breath sound bilateral base. Hemodialysis catheter inserted right subclavicular - CARDIOVASCULAR: Regular rate and rhythm. No murmur. No JVD. - ABDOMEN: Soft, non-tender and non-distended. No palpable masses. - EXTREMITIES: No edema. Peripheral pulses 2+. Non-tender. - NEUROLOGIC: No focal neurological deficits. CN II-XII grossly intact. - PSYCHIATRIC: Awake, Alert and oriented x 3. Appropriate mood and affect. - SKIN: No rashes or lesions. Warm. - LYMPH: No cervical lymphadenopathy. Objective Data Vital Signs Vital Signs: Vital Signs - 24 hr 01/16/24 14:08 01/16/24 14:16 01/16/24 14:16 Temperature 100.0 F H Pulse Rate 70 65 Respiratory Rate 16 Blood Pressure Pulse Oximetry 98 98 Oxygen D
[2024-01-17 08:40] LABS: Basophils Percent Auto 0.1 % (0.2-1.2); Hematocrit 30.7 % (42.0-52.0); Hemoglobin 9.9 g/dL (14.0-18.0); Immature Granulocyte Absolute 0.35 K/mm3 (0.00-0.031); Immature Granulocyte Percent A 3.2 % (0-0.5); Immature Platelet Fraction Pct 8.3 % (0.9-11.2); Lymphocytes Absolute Auto 0.41 K/mm3 (0.9-3.2); Lymphocytes Percent Auto 3.8 % (18.3-44.2); Mean Corpuscular HGB Conc 32.2 g/dl (32-36); Mean Corpuscular Hemoglobin 30.9 pg (26-34); Mean Corpuscular Volume 95.9 fl (80-100); Mean Platelet Volume 11.3 fl (7.4-10.4); Monocytes Absolute Auto 0.3 K/mm3 (0.1-0.6); Monocytes Percent Auto 3.1 % (2.6-8.5); Neutrophils Absolute Auto 9.7 K/mm3 (1.3-6.7); Neutrophils Percent Auto 89.8 % (45.5-73.1); Platelet Count Result 73 k/mm3 (150-375); Red Cell Distribution Width 15.9 % (11.5-14.5); White Blood Count 10.8 K/mm3 (4.5-10.0)
[2024-01-17 09:00] LABS: Alanine Aminotransferase 38 U/L (6-50); Alkaline Phosphatase 64 U/L (38-126); Anion Gap 18 mmol/L (4-12); Aspartate Amino Transferase 39 U/L (17-59); Bilirubin,Total 0.7 mg/dL (0.2-1.3); Blood Urea Nitrogen 71 mg/dL (9-20); Calcium 8.1 mg/dL (8.4-10.2); Carbon Dioxide 25 mmol/L (22-30); Chloride 90 mmol/L (98-107); Estimated CRCL calculation 6 ml/min; Estimated Glomerular Filt Rate 5; Glucose 136 mg/dL (65-110); Potassium 4.7 mmol/L (3.4-5.0); Sodium 133 mmol/L (137-145)
[2024-01-17] MEDS: FOLIC ACID 1 MG TABLET PO (09:03)
[2024-01-17] MEDS: cloNIDine HCL 0.2 MG TABLET PO (09:03)
[2024-01-17] MEDS: ASPIRIN 81 MG ENTERIC TABLET PO (09:03)
[2024-01-17] MEDS: DOLUTEGRAVIR SODIUM 50 MG TABLET PO ×2 (09:04→20:10)
[2024-01-17] MEDS: carvediloL 12.5 MG TABLET 25 MG PO ×2 (09:04→20:10)
[2024-01-17] MEDS: CALCIUM ACETATE 667 MG TABLET PO ×2 (09:04→18:20)
[2024-01-17] MEDS: calcitrioL 0.25 MCG CAPSULE 0.5 MCG PO (09:04)
[2024-01-17] MEDS: SERTRALINE HCL 50 MG TABLET PO (09:05)
[2024-01-17] MEDS: ISOSORBIDE MONONITRATE 60 MG TAB.ER.24H 120 MG PO (09:05)
[2024-01-17] MEDS: CHOLECALCIFEROL 1,000 UNITS TABLET 5000 UNITS PO (09:05)
[2024-01-17] MEDS: minoxidiL 2.5 MG TABLET PO ×2 (09:05→20:10)
[2024-01-17] MEDS: SULFAMETHOXAZOLE/TRIMETHOPRIM 400/80 MG TABLET 1 TAB PO (09:05)
--- NOTE | 2024-01-17 10:07 | PC.NURSE ---
Fostemsavir 1 tab and Prezcobix 800-150 tab given from home bottles.
[2024-01-17 10:28] LABS: Vancomycin Random 16.2 ug/mL (10-20)
[2024-01-17 10:40] LABS: Procalcitonin 23.9 ng/mL
[2024-01-17 11:01] LABS: Hepatitis B Surface Antigen Positive (Negative)
[2024-01-17 11:10] LABS: Hepatitis B Surface Anti Res Negative
[2024-01-17] MEDS: CEFEPIME 1 GM/NS 50 ML 1 GM/50 ML BAG IVPB (13:43)
--- NOTE | 2024-01-17 13:54 | PC.NURSE ---
Gave report to Dialysis nurse. Patient being taken to the dialysis unit at this time by this RN and tech
[2024-01-17] MEDS: SODIUM CHLORIDE 0.9% IV 1,000 ML 999 ML IV CONT (14:06)
--- NOTE | 2024-01-17 14:41 | PC.NURSE ---
1428-I spoke with Dr. Martin who gave the telephone order to downgrade the patient's status to Med/Surg. line service supervisor, Lyndsey LOU, notified of status change.
[2024-01-17] MEDS: EPOETIN ALFA-EPBX 10,000 UNITS/ML VIAL 10000 UNITS IV PUSH (16:10)
--- NOTE | 2024-01-17 16:53 | PC.NURSE ---
Pt to go to rm 240 from dialysis.
--- NOTE | 2024-01-17 17:28 | PM.CNNEP ---
Assessment and Plan Assessment and plan (1) End stage renal disease: Code(s): N18.6 - End stage renal disease Status: Chronic Assessment and Plan: HD today continue Wed/Wed/Wednesday dialysis schedule while hospitalized follow electrolytes, volume status, and clearance (2) Acute hypoxemic respiratory failure: Code(s): J96.01 - Acute respiratory failure with hypoxia Status: Acute Assessment and Plan: as noted on admission suspect related to volume overload and pneumonia by admission imaging possible component of COPD playing a role... continue supplemental high flow oxygen therapy - wean as tolerated fluid removal with dialysis follow culture data on antibiotics follow respiratory status (3) Pneumonia: Code(s): J18.9 - Pneumonia, unspecified organism Status: Acute Assessment and Plan: admission imaging suggestive follow culture data on antibiotics (4) Hypertension: Code(s): I10 - Essential (primary) hypertension Status: Chronic Assessment and Plan: reasonable control at this time follow trend of hemodynamics (5) COPD (chronic obstructive pulmonary disease): Qualifiers: COPD type: COPD with acute lower respiratory infection Qualified Code(s): J44.0 - Chronic obstructive pulmonary disease with (acute) lower respiratory infection Code(s): J44.9 - Chronic obstructive pulmonary disease, unspecified Status: Chronic Assessment and Plan: contributing factor with regard to #2 on supplemental oxygen nebulizer treatments (6) Anemia: Qualifiers: Anemia type: unspecified type Qualified Code(s): D64.9 - Anemia, unspecified Code(s): D64.9 - Anemia, unspecified Status: Chronic Assessment and Plan: due to ESRD JOSR with dialysis follow trend of H/H (7) HIV disease: Code(s): B20 - Human immunodeficiency virus [HIV] disease Status: Acute Assessment and Plan: continue HAART I will continue to follow the patient with you while he remains hospitalized and make further recommendations as deemed necessary. Thank you for allowing me to participate in the care of this patient. History of Present Illness Reason for Consult Consult date: 01/17/24 Reason for consult: end stage renal disease Chief Complaint Chief complaint: Acute hypoxemic respiratory failure,fluid overload History of Present Illness Narrative: The patient is a 68-year-old male with a past medical history as outlined below who presented to [facility] Emergency room via EMS for further evaluation shortness of breath. The patient reports that he has been having issues and problems with his breathing for the last three or four days in association with fevers. His shortness of breath seems to be present both at rest as well as with exertion. He reports a nonproductive cough in association with pleuritic chest pain on the left side as well. With regard to his fevers, apparently his temperature has been as high as 103 degrees in association with nausea, vomiting, and diarrhea. Given these constellation of symptoms and the fact that it does not seem to be improving, he came to the emergency room for further assessment. Workup and evaluation in the emergency room demonstrated the patient to be hemodynamically stable and afebrile but he was noted to be hypoxic. Supplemental oxygen was initiated with improvement in his oxygen saturations. Routine blood test demonstrated labs consistent with his known history of end-stage renal disease and his CBC was remarkable for a mildly elevated white blood cell count and relative anemia. He received a small IV fluid bolus due to the history of fevers and after appropriate cultures were obtained, was started on broad-spectrum IV antibiotic therapy due to the concern for possible sepsis. A CT scan of his chest abdomen pelvis were done as
[2024-01-17] MEDS: AZITHROMYCIN 500 MG/NS 250 ML 500 MG/250 ML BAG 250 MG IVPB (18:19)
--- NOTE | 2024-01-17 19:21 | PC.NURSE ---
Called pharmacy for [address], was told flight readiness technician would be up to [facility] shortly
--- NOTE | 2024-01-17 19:24 | PC.NURSE ---
Patient to floor at 1820
[2024-01-17] MEDS: DOXAZOSIN MESYLATE 4 MG TABLET 8 MG PO (20:09)
[2024-01-17] MEDS: VANCOMYCIN 750 MG/NS 250 ML 750 MG/250 ML BAG 250 MG IVPB (20:09)
[2024-01-17] MEDS: traZODone HCL 25 MG TABLET PO (20:10)
[2024-01-18 04:26] VITALS: BP 150/87; PULSE 67; RESP 16; TEMP 36.6; O2SAT 98
--- NOTE | 2024-01-18 04:32 | PHAR ---
HOME MEDS VERIFED PREZCOBIX 1 DAILY AND RUKOBIA BID
[2024-01-18 05:29] LABS: Estimated CRCL calculation 9 ml/min; Estimated Glomerular Filt Rate 8
[2024-01-18 05:49] LABS: Vancomycin Random 18.1 ug/mL (10-20)
[2024-01-18 06:02] LABS: Procalcitonin 17.9 ng/mL
[2024-01-18 06:19] LABS: Anion Gap 13 mmol/L (4-12); Blood Urea Nitrogen 50 mg/dL (9-20); Calcium 8.1 mg/dL (8.4-10.2); Carbon Dioxide 28 mmol/L (22-30); Chloride 96 mmol/L (98-107); Estimated CRCL calculation 9 ml/min; Estimated Glomerular Filt Rate 8; Glucose 127 mg/dL (65-110); Potassium 4.5 mmol/L (3.4-5.0); Sodium 137 mmol/L (137-145)
[2024-01-18] MEDS: SERTRALINE HCL 50 MG TABLET PO (07:58)
[2024-01-18 07:59] VITALS: PULSE 68
[2024-01-18] MEDS: CHOLECALCIFEROL 1,000 UNITS TABLET 5000 UNITS PO (07:59)
[2024-01-18] MEDS: CALCIUM ACETATE 667 MG TABLET PO ×3 (07:59→17:18)
[2024-01-18] MEDS: ISOSORBIDE MONONITRATE 60 MG TAB.ER.24H 120 MG PO (07:59)
[2024-01-18] MEDS: carvediloL 12.5 MG TABLET 25 MG PO ×2 (07:59→20:58)
[2024-01-18] MEDS: ASPIRIN 81 MG ENTERIC TABLET PO (07:59)
[2024-01-18] MEDS: minoxidiL 2.5 MG TABLET PO ×2 (07:59→17:18)
[2024-01-18] MEDS: DOLUTEGRAVIR SODIUM 50 MG TABLET PO ×2 (07:59→21:00)
[2024-01-18] MEDS: FOLIC ACID 1 MG TABLET PO (08:00)
--- NOTE | 2024-01-18 08:05 | PM.IMPN ---
Progress Note: A&P Assessment and Plan (1) End-stage renal disease on hemodialysis: Code(s): N18.6 - End stage renal disease; Z99.2 - Dependence on renal dialysis Status: Acute (2) Acute hypoxemic respiratory failure: Code(s): J96.01 - Acute respiratory failure with hypoxia Status: Acute (3) HIV disease: Code(s): B20 - Human immunodeficiency virus [HIV] disease Status: Acute Plan This is a 68-year-old male with past medical history significant for HIV/ aids, end-stage renal disease on hemodialysis, rectal CA, hypertension, COPD. Patient presents to the emergency room with 3-4 days of diarrhea generalized weakness and 1 episode of fever. at the time of my visit patient. Initially was found to have to be hypoxic and placed on high-flow oxygen. Preliminary workup has been CT of chest abdomen and pelvis with bilateral trace pleural effusions. (1) Acute hypoxemic respiratory failure: Code(s): J96.01 - Acute respiratory failure with hypoxia Status: Acute Assessment and Plan: Possible due COPD exacerbation CT shows interstitial edema, trace bilateral pleural effusion Patient has end-stage renal disease on dialysis, consult cell technician for dialysis Provide O2 therapy to keep pulse ox above 94 Patient still on high-flow oxygen 6 L per minute Follow-up ABG Bacteremia Blood culture grows Gram-positive cocci in both bottles 01/15 Patient is on hemodialysis, risk of dialysis catheter induced bacteremia May need to replace the catheter Management per cell technician c/w current abx repeat bcx 01/17 (2) HIV disease: Code(s): B20 - Human immunodeficiency virus [HIV] disease Status: Acute Assessment and Plan: patient is on HAART follow-up in outpatient setting (3) GERD (gastroesophageal reflux disease): Code(s): K21.9 - Gastro-esophageal reflux disease without esophagitis Status: Acute Assessment and Plan: PPI (4) COPD (chronic obstructive pulmonary disease): Qualifiers: COPD type: COPD with acute lower respiratory infection Qualified Code(s): J44.0 - Chronic obstructive pulmonary disease with (acute) lower respiratory infection Code(s): J44.9 - Chronic obstructive pulmonary disease, unspecified Status: Acute Assessment and Plan: Possible COPD exacerbation due to acute better bronchitis versus atypical pneumonia Patient has productive cough with with fever; CT shows interstitial changes pt is on azithromycin and cefepime and vancomycin Follow MRSA screening positive, prolactin level: 17.9 that is trending down Continue current antibiotics (5) End-stage renal disease on hemodialysis: Code(s): N18.6 - End stage renal disease; Z99.2 - Dependence on renal dialysis Status: Acute Assessment and Plan: Consult cell technician for dialysis continue hemodialysis Diarrhea Patient has a fever and diarrhea Follow-up stool culture, white blood cell stool smear Essential hypertension Hold hypertension medications, blood pressure on lower side Subjective Date/time seen: 01/18/24 08:05 Interval history: I saw examined patient today, patient feels better, patient still has general weakness, cough with scant phlegm. Patient is afebrile, blood pressure stable over the night, blood culture positive for Gram-positive cocci cluster, pending report Exam Narrative: GENERAL: Pleasant, in no acute distress. Well-nourished. - EYES: EOMI. Anicteric. - HENT: Moist mucous membranes. - LUNGS: Distant better some bilateral, coarse breath sound bilateral base. Hemodialysis catheter inserted right subclavicular - CARDIOVASCULAR: Regular rate and rhythm. No murmur. No JVD. - ABDOMEN: Soft, non-tender and non-distended. No palpable masses. - EXTREMITIES: No edema. Peripheral pulses 2+. Non-tender. - NEUROLOGIC: No focal neurological deficits. CN II-XII grossly intact. - PSYCHIATRIC: A
[2024-01-18 09:32] LABS: Basophils Percent Auto 0.3 % (0.2-1.2); Hematocrit 29.8 % (42.0-52.0); Hemoglobin 9.8 g/dL (14.0-18.0); Immature Granulocyte Absolute 0.09 K/mm3 (0.00-0.031); Immature Granulocyte Percent A 0.8 % (0-0.5); Lymphocytes Absolute Auto 0.67 K/mm3 (0.9-3.2); Lymphocytes Percent Auto 5.8 % (18.3-44.2); Mean Corpuscular HGB Conc 32.9 g/dl (32-36); Mean Corpuscular Hemoglobin 31.8 pg (26-34); Mean Corpuscular Volume 96.8 fl (80-100); Mean Platelet Volume 12.2 fl (7.4-10.4); Monocytes Absolute Auto 0.8 K/mm3 (0.1-0.6); Monocytes Percent Auto 6.6 % (2.6-8.5); Neutrophils Percent Auto 86.5 % (45.5-73.1); Platelet Count Result 101 k/mm3 (150-375); Red Blood Count 3.08 M/mm3 (4.6-6.20); Red Cell Distribution Width 16.1 % (11.5-14.5); White Blood Count 11.5 K/mm3 (4.5-10.0)
--- NOTE | 2024-01-18 10:26 | P.PNNP_ITS ---
Progress Note: A&P Assessment and Plan (1) End stage renal disease: Code(s): N18.6 - End stage renal disease Status: Chronic Assessment and Plan: * HD tomorrow * continue Wed/Wed/Wednesday dialysis schedule while hospitalized * follow electrolytes, volume status, and clearance (2) Bacteremia: Code(s): R78.81 - Bacteremia Status: Acute Assessment and Plan: * positive blood culture noted with Staphylococcus aureus * already on antibiotic therapy * concern is that this may be related to HD catheter * further complicated by immunocompromised status (HIV) * if repeat blood culture remain persistently positive, may need HD catheter removal (3) Acute hypoxemic respiratory failure: Code(s): J96.01 - Acute respiratory failure with hypoxia Status: Acute Assessment and Plan: * as noted on admission * suspect related to volume overload and pneumonia by admission imaging * possible component of COPD playing a role... * continue supplemental high flow oxygen therapy - wean as tolerated * fluid removal with dialysis * follow culture data * on antibiotics * follow respiratory status (4) Pneumonia: Code(s): J18.9 - Pneumonia, unspecified organism Status: Acute Assessment and Plan: * admission imaging suggestive * follow culture data * on antibiotics (5) Hypertension: Code(s): I10 - Essential (primary) hypertension Status: Chronic Assessment and Plan: * reasonable control at this time * follow trend of hemodynamics (6) COPD (chronic obstructive pulmonary disease): Qualifiers: COPD type: COPD with acute lower respiratory infection Qualified Code(s): J44.0 - Chronic obstructive pulmonary disease with (acute) lower respiratory infection Code(s): J44.9 - Chronic obstructive pulmonary disease, unspecified Status: Chronic Assessment and Plan: * contributing factor with regard to #3 * on supplemental oxygen * nebulizer treatments (7) Anemia: Qualifiers: Anemia type: unspecified type Qualified Code(s): D64.9 - Anemia, unspecified Code(s): D64.9 - Anemia, unspecified Status: Chronic Assessment and Plan: * due to ESRD * JOSR with dialysis * follow trend of H/H (8) HIV disease: Code(s): B20 - Human immunodeficiency virus [HIV] disease Status: Acute Assessment and Plan: * continue HAART Will continue to follow. Subjective Date/time seen: 01/18/24 10:26 Interval history: Follow-up for end stage renal disease on hemodialysis. Tolerated dialysis treatment yesterday afternoon without any issues or problems; breathing/respiratory status seems better but still requiring supplemental oxygen support; positive blood cultures noted; no events overnight or earlier this morning; no apparent distress. Exam Narrative: General: WD/WN male in NAD Heart: normal S1 and S2; no rub Lungs: coarse breath sounds noted Abdomen: soft, nontender, nondistended, positive bowel sounds Extremities: no cyanosis or clubbing; no edema Skin: warm and dry Objective Data Vital Signs Vital Signs: Vital Signs Temp Pulse Resp BP Pulse Ox O2 Del Method O2 Flow Rate 01/18/24 07:59 68 01/18/24 04:26 97.8 F 67 16 150/87 H 98 01/17/24 20:00 9
--- NOTE | 2024-01-18 10:26 | PM.PNNEP ---
Progress Note: A&P Assessment and Plan (1) End stage renal disease: Code(s): N18.6 - End stage renal disease Status: Chronic Assessment and Plan: HD tomorrow continue Wed/Wed/Wednesday dialysis schedule while hospitalized follow electrolytes, volume status, and clearance (2) Bacteremia: Code(s): R78.81 - Bacteremia Status: Acute Assessment and Plan: positive blood culture noted with Staphylococcus aureus already on antibiotic therapy concern is that this may be related to HD catheter further complicated by immunocompromised status (HIV) if repeat blood culture remain persistently positive, may need HD catheter removal (3) Acute hypoxemic respiratory failure: Code(s): J96.01 - Acute respiratory failure with hypoxia Status: Acute Assessment and Plan: as noted on admission suspect related to volume overload and pneumonia by admission imaging possible component of COPD playing a role... continue supplemental high flow oxygen therapy - wean as tolerated fluid removal with dialysis follow culture data on antibiotics follow respiratory status (4) Pneumonia: Code(s): J18.9 - Pneumonia, unspecified organism Status: Acute Assessment and Plan: admission imaging suggestive follow culture data on antibiotics (5) Hypertension: Code(s): I10 - Essential (primary) hypertension Status: Chronic Assessment and Plan: reasonable control at this time follow trend of hemodynamics (6) COPD (chronic obstructive pulmonary disease): Qualifiers: COPD type: COPD with acute lower respiratory infection Qualified Code(s): J44.0 - Chronic obstructive pulmonary disease with (acute) lower respiratory infection Code(s): J44.9 - Chronic obstructive pulmonary disease, unspecified Status: Chronic Assessment and Plan: contributing factor with regard to #3 on supplemental oxygen nebulizer treatments (7) Anemia: Qualifiers: Anemia type: unspecified type Qualified Code(s): D64.9 - Anemia, unspecified Code(s): D64.9 - Anemia, unspecified Status: Chronic Assessment and Plan: due to ESRD JOSR with dialysis follow trend of H/H (8) HIV disease: Code(s): B20 - Human immunodeficiency virus [HIV] disease Status: Acute Assessment and Plan: continue HAART Will continue to follow. Subjective Date/time seen: 01/18/24 10:26 Interval history: Follow-up for end stage renal disease on hemodialysis. Tolerated dialysis treatment yesterday afternoon without any issues or problems; breathing/respiratory status seems better but still requiring supplemental oxygen support; positive blood cultures noted; no events overnight or earlier this morning; no apparent distress. Exam Narrative: General: WD/WN male in NAD Heart: normal S1 and S2; no rub Lungs: coarse breath sounds noted Abdomen: soft, nontender, nondistended, positive bowel sounds Extremities: no cyanosis or clubbing; no edema Skin: warm and dry Objective Data Vital Signs Vital Signs: Vital Signs Temp Pulse Resp BP Pulse Ox O2 Del Method O2 Flow Rate 01/18/24 07:59 68 01/18/24 04:26 97.8 F 67 16 150/87 H 98 01/17/24 20:00 98 High Flow Therapy with Na 6 01/17/24 20:10 66 01/17/24 19:47 97.5 F L 66 16 122/72 98 01/17/24 19:19 96 High Flow Therapy with Na 6 01/17/24 18:25 97.6 F 69 17 141/87 H 100 01/17/24 17:54 98.4 F 67 18 151/89 H 100 01/17/24 17:44 66 156/90 H 01/17/24 17:30 66 149/92 H 01/17/24 17:15 65 136/81 01/17/24 17:00 65 136/85 01/17/24 16:45 63 128/77 01/17/24 16:30 64 133/93 H 01/17/24 16:15 64 125/84 01/17/24 16:00 63 133/81 01/17/24 15:45 64 98/76 L 01/17/24 15:30 62 138/86 01/17/24 15:15 61
[2024-01-18 10:36] LABS: Alveolar/Arterial O2 Gradient 139.3 mmHg; Base Excess ABG 2.4 mEq/l (+/-2.0); Device NASAL CANNULA; Fractional Inspired Oxygen 40 %; HCO3 ABG 27.1 mEq/l (22.0-26.0); Oxygen Saturation ABG 97.5 % (95.0-100.0); Oxyhemoglobin 95.9 % THb (90.0-100.0); PCO2 ABG 42.5 mmHg (35.0-45.0); PO2 FiO2 Ratio Arterial Blood 2.42 %; Site Drawn LEFT BRACHIAL; Total Hemoglobin 10.3 g/dL (12.0-18.0); pH ABG 7.423 (7.350-7.450)
[2024-01-18] MEDS: AZITHROMYCIN 250 MG TABLET 500 MG PO (12:08)
[2024-01-18] MEDS: LIDOCAINE 5% PATCH 1 PATCH TRANSDERM (12:25)
[2024-01-18 14:00] VITALS: BP 132/78; PULSE 70; RESP 16; TEMP 36.5; O2SAT 100
[2024-01-18] MEDS: CALCIUM CARBONATE (TUMS) 500 MG (200 MG ELEMENTAL) PO (15:44)
[2024-01-18] MEDS: CEFEPIME 1 GM/NS 50 ML 1 GM/50 ML BAG IVPB (17:19)
[2024-01-18 20:00] VITALS: O2SAT 100
[2024-01-18] MEDS: MAG HYDROX/AL HYDROX/SIMETH 30 ML UDC PO (20:56)
[2024-01-18] MEDS: VANCOMYCIN 750 MG/NS 250 ML 750 MG/250 ML BAG 250 MG IVPB (20:57)
[2024-01-18 20:58] VITALS: PULSE 70
[2024-01-18] MEDS: traZODone HCL 25 MG TABLET PO (20:58)
[2024-01-18] MEDS: DOXAZOSIN MESYLATE 4 MG TABLET 8 MG PO (20:58)
[2024-01-18] MEDS: ENTECAVIR 0.5 MG TABLET PO (20:58)
[2024-01-18 23:02] VITALS: BP 126/76; PULSE 64; RESP 18; TEMP 36.4; O2SAT 97
[2024-01-19] VITALS (24 sets, daily range): BP systolic 112–161; BP diastolic 72–101; PULSE 65–71; RESP 18; TEMP 35.4–37; O2SAT 97–100
[2024-01-19 05:32] LABS: Basophils Percent Auto 0.3 % (0.2-1.2); Eosinophils Percent Auto 0.1 % (0-4.4); Hematocrit 30.4 % (42.0-52.0); Immature Granulocyte Absolute 0.15 K/mm3 (0.00-0.031); Immature Platelet Fraction Pct 4.3 % (0.9-11.2); Lymphocytes Absolute Auto 1.05 K/mm3 (0.9-3.2); Lymphocytes Percent Auto 14.3 % (18.3-44.2); Mean Corpuscular HGB Conc 32.9 g/dl (32-36); Mean Corpuscular Hemoglobin 31.5 pg (26-34); Mean Corpuscular Volume 95.9 fl (80-100); Mean Platelet Volume 11.3 fl (7.4-10.4); Monocytes Absolute Auto 0.8 K/mm3 (0.1-0.6); Monocytes Percent Auto 10.5 % (2.6-8.5); Neutrophils Absolute Auto 5.3 K/mm3 (1.3-6.7); Neutrophils Percent Auto 72.8 % (45.5-73.1); Nucleated Red Blood Cells Perc 0.3 % (0.0-0.2); Platelet Count Result 96 k/mm3 (150-375); Red Blood Count 3.17 M/mm3 (4.6-6.20); Red Cell Distribution Width 15.7 % (11.5-14.5); White Blood Count 7.3 K/mm3 (4.5-10.0)
[2024-01-19 05:43] LABS: Anion Gap 12 mmol/L (4-12); Blood Urea Nitrogen 62 mg/dL (9-20); Calcium 8.1 mg/dL (8.4-10.2); Carbon Dioxide 27 mmol/L (22-30); Chloride 95 mmol/L (98-107); Estimated CRCL calculation 8 ml/min; Estimated Glomerular Filt Rate 7; Glucose 103 mg/dL (65-110); Potassium 4.3 mmol/L (3.4-5.0); Sodium 134 mmol/L (137-145)
[2024-01-19 05:50] LABS: Vancomycin Random 22.2 ug/mL (10-20)
[2024-01-19 06:03] LABS: Procalcitonin 14.6 ng/mL
--- NOTE | 2024-01-19 08:17 | PM.IMPN ---
Progress Note: A&P Assessment and Plan (1) End-stage renal disease on hemodialysis: Code(s): N18.6 - End stage renal disease; Z99.2 - Dependence on renal dialysis Status: Acute (2) Acute hypoxemic respiratory failure: Code(s): J96.01 - Acute respiratory failure with hypoxia Status: Acute (3) HIV disease: Code(s): B20 - Human immunodeficiency virus [HIV] disease Status: Acute Plan This is a 68-year-old male with past medical history significant for HIV/ aids, end-stage renal disease on hemodialysis, rectal CA, hypertension, COPD. Patient presents to the emergency room with 3-4 days of diarrhea generalized weakness and 1 episode of fever. at the time of my visit patient. Initially was found to have to be hypoxic and placed on high-flow oxygen. Preliminary workup has been CT of chest abdomen and pelvis with bilateral trace pleural effusions. (1) Acute hypoxemic respiratory failure: Code(s): J96.01 - Acute respiratory failure with hypoxia Status: Acute Assessment and Plan: Possible due COPD exacerbation CT shows interstitial edema, trace bilateral pleural effusion Patient has end-stage renal disease on dialysis, consult lead ios developer for dialysis Provide O2 therapy to keep pulse ox above 94 Patient still on high-flow oxygen 6 L per minute Follow-up ABG Bacteremia Blood culture grows MRSA in both bottles 01/15 Patient is on hemodialysis, risk of dialysis catheter induced bacteremia May need to replace the catheter Management per lead ios developer c/w current abx repeat bcx 01/17, no growth so far (2) HIV disease: Code(s): B20 - Human immunodeficiency virus [HIV] disease Status: Acute Assessment and Plan: patient is on HAART follow-up in outpatient setting (3) GERD (gastroesophageal reflux disease): Code(s): K21.9 - Gastro-esophageal reflux disease without esophagitis Status: Acute Assessment and Plan: PPI (4) COPD (chronic obstructive pulmonary disease): Qualifiers: COPD type: COPD with acute lower respiratory infection Qualified Code(s): J44.0 - Chronic obstructive pulmonary disease with (acute) lower respiratory infection Code(s): J44.9 - Chronic obstructive pulmonary disease, unspecified Status: Acute Assessment and Plan: Possible COPD exacerbation due to acute better bronchitis versus atypical pneumonia Patient has productive cough with with fever; CT shows interstitial changes pt is on azithromycin and cefepime and vancomycin Follow MRSA screening positive, prolactin level: 17.9 that is trending down Continue current antibiotics (5) End-stage renal disease on hemodialysis: Code(s): N18.6 - End stage renal disease; Z99.2 - Dependence on renal dialysis Status: Acute Assessment and Plan: Consult lead ios developer for dialysis continue hemodialysis Diarrhea Patient had fever and diarrhea Pending stool culture, white blood cell stool smear Resolved Essential hypertension Hold hypertension medications, blood pressure on lower side Subjective Date/time seen: 01/19/24 08:17 Interval history: Patient underwent dialysis yesterday, patient feels better today, patient is afebrile, blood pressure stable, blood culture grows MRSA. Patient has constipation, denies abdomen pain, nausea vomiting. Patient is on 4 L oxygen now Exam Narrative: GENERAL: Pleasant, in no acute distress. Well-nourished. - EYES: EOMI. Anicteric. - HENT: Moist mucous membranes. - LUNGS: Distant better some bilateral, coarse breath sound bilateral base. Hemodialysis catheter inserted right subclavicular - CARDIOVASCULAR: Regular rate and rhythm. No murmur. No JVD. - ABDOMEN: Soft, non-tender and non-distended. No palpable masses. - EXTREMITIES: No edema. Peripheral pulses 2+. Non-tender. - NEUROLOGIC: No focal neurological deficits. CN II-XII grossly intact. - PSYCHIATRIC: Awake,
[2024-01-19] MEDS: LIDOCAINE 5% PATCH 1 PATCH TRANSDERM (09:39)
[2024-01-19] MEDS: polyethylene glycoL 3350 17 GM POWD.PACK PO (09:39)
[2024-01-19] MEDS: oxyCODONE HCL (*CRX) 5 MG TAB IR PO ×2 (11:50→22:47)
[2024-01-19] MEDS: calcitrioL 0.25 MCG CAPSULE 0.5 MCG PO (11:51)
--- NOTE | 2024-01-19 12:20 | PM.PNNEP ---
Progress Note: A&P Assessment and Plan (1) End stage renal disease: Code(s): N18.6 - End stage renal disease Status: Chronic Assessment and Plan: HD today continue Wed/Wed/Wednesday dialysis schedule while hospitalized follow electrolytes, volume status, and clearance (2) Bacteremia: Code(s): R78.81 - Bacteremia Status: Acute Assessment and Plan: positive blood culture noted with MRSA (01/15) repeat blood cultures pending already on antibiotic therapy concern is that this may be related to HD catheter further complicated by immunocompromised status (HIV) if repeat blood culture remains persistently positive, may need HD catheter removal and possible further evaluation for endocarditis (3) Acute hypoxemic respiratory failure: Code(s): J96.01 - Acute respiratory failure with hypoxia Status: Acute Assessment and Plan: as noted on admission suspect related to volume overload and pneumonia by admission imaging possible component of COPD playing a role... continue supplemental high flow oxygen therapy - wean as tolerated fluid removal with dialysis follow culture data on antibiotics follow respiratory status (4) Pneumonia: Code(s): J18.9 - Pneumonia, unspecified organism Status: Acute Assessment and Plan: admission imaging suggestive follow culture data on antibiotics (5) Hypertension: Code(s): I10 - Essential (primary) hypertension Status: Chronic Assessment and Plan: reasonable control at this time follow trend of hemodynamics (6) COPD (chronic obstructive pulmonary disease): Qualifiers: COPD type: COPD with acute lower respiratory infection Qualified Code(s): J44.0 - Chronic obstructive pulmonary disease with (acute) lower respiratory infection Code(s): J44.9 - Chronic obstructive pulmonary disease, unspecified Status: Chronic Assessment and Plan: contributing factor with regard to #3 on supplemental oxygen nebulizer treatments (7) Anemia: Qualifiers: Anemia type: unspecified type Qualified Code(s): D64.9 - Anemia, unspecified Code(s): D64.9 - Anemia, unspecified Status: Chronic Assessment and Plan: due to ESRD JOSR with dialysis follow trend of H/H (8) HIV disease: Code(s): B20 - Human immunodeficiency virus [HIV] disease Status: Acute Assessment and Plan: continue HAART Will continue to follow. Subjective Date/time seen: 01/19/24 12:20 Interval history: Follow-up for end stage renal disease on hemodialysis. Tolerating dialysis treatment at the time of my visit (seen on HD at 12:10PM); no distress when seen but reports was not feeling very good earlier this morning but difficult for him to elaborate why; remains on supplemental oxygen; no issues/event overnight voiced. Exam Narrative: General: WD/WN male in NAD Heart: normal S1 and S2; no rub Lungs: coarse breath sounds noted Abdomen: soft, nontender, nondistended, positive bowel sounds Extremities: no cyanosis or clubbing; no edema Skin: warm and intact Objective Data Vital Signs Vital Signs: Vital Signs Temp Pulse Resp BP Pulse Ox O2 Del Method O2 Flow Rate 01/19/24 12:15 67 148/101 H 01/19/24 11:45 68 142/99 H 01/19/24 11:30 70 148/98 H 01/19/24 12:00 67 160/100 H 01/19/24 11:15 67 156/97 H 01/19/24 11:00 66 119/87 01/19/24 10:45 66 148/100 H 01/19/24 10:30 66 134/94 H 01/19/24 10:15 67 141/92 H 01/19/24 10:05 65 157/99 H 01/19/24 10:00 97.7 F 68 18 141/96 H 100 01/19/24 10:00 4 01/19/24 06:13 97.7 F 66 18 112/75 98 01/18/24 23:02 97.6 F 64 18 126/76 97 01/18/24 20:00 100 High Flow Therapy with Na 4 01/18/24 20:58 70 Intake/Output Intake/Output: Intake & Ou
--- NOTE | 2024-01-19 12:20 | P.PNNP_ITS ---
Progress Note: A&P Assessment and Plan (1) End stage renal disease: Code(s): N18.6 - End stage renal disease Status: Chronic Assessment and Plan: * HD today * continue Wed/Wed/Wednesday dialysis schedule while hospitalized * follow electrolytes, volume status, and clearance (2) Bacteremia: Code(s): R78.81 - Bacteremia Status: Acute Assessment and Plan: * positive blood culture noted with MRSA (01/15) * repeat blood cultures pending * already on antibiotic therapy * concern is that this may be related to HD catheter * further complicated by immunocompromised status (HIV) * if repeat blood culture remains persistently positive, may need HD catheter removal and possible further evaluation for endocarditis (3) Acute hypoxemic respiratory failure: Code(s): J96.01 - Acute respiratory failure with hypoxia Status: Acute Assessment and Plan: * as noted on admission * suspect related to volume overload and pneumonia by admission imaging * possible component of COPD playing a role... * continue supplemental high flow oxygen therapy - wean as tolerated * fluid removal with dialysis * follow culture data * on antibiotics * follow respiratory status (4) Pneumonia: Code(s): J18.9 - Pneumonia, unspecified organism Status: Acute Assessment and Plan: * admission imaging suggestive * follow culture data * on antibiotics (5) Hypertension: Code(s): I10 - Essential (primary) hypertension Status: Chronic Assessment and Plan: * reasonable control at this time * follow trend of hemodynamics (6) COPD (chronic obstructive pulmonary disease): Qualifiers: COPD type: COPD with acute lower respiratory infection Qualified Code(s): J44.0 - Chronic obstructive pulmonary disease with (acute) lower respiratory infection Code(s): J44.9 - Chronic obstructive pulmonary disease, unspecified Status: Chronic Assessment and Plan: * contributing factor with regard to #3 * on supplemental oxygen * nebulizer treatments (7) Anemia: Qualifiers: Anemia type: unspecified type Qualified Code(s): D64.9 - Anemia, unspecified Code(s): D64.9 - Anemia, unspecified Status: Chronic Assessment and Plan: * due to ESRD * JOSR with dialysis * follow trend of H/H (8) HIV disease: Code(s): B20 - Human immunodeficiency virus [HIV] disease Status: Acute Assessment and Plan: * continue HAART Will continue to follow. Subjective Date/time seen: 01/19/24 12:20 Interval history: Follow-up for end stage renal disease on hemodialysis. Tolerating dialysis treatment at the time of my visit (seen on HD at 12:10PM); no distress when seen but reports was not feeling very good earlier this morning but difficult for him to elaborate why; remains on supplemental oxygen; no issues/event overnight voiced. Exam Narrative: General: WD/WN male in NAD Heart: normal S1 and S2; no rub Lungs: coarse breath sounds noted Abdomen: soft, nontender, nondistended, positive bowel sounds Extremities: no cyanosis or clubbing; no edema Skin: warm and intact Objective Data Vital Signs Vital Signs: Vital Signs Temp Pulse Resp BP Pulse Ox O2 Del Method O2 Flow Rate 01/19/24 12:15 67 148/101 H
[2024-01-19] MEDS: SODIUM CHLORIDE 0.9% IV 1,000 ML 999 ML IV CONT (12:43)
[2024-01-19] MEDS: EPOETIN ALFA-EPBX 10,000 UNITS/ML VIAL 10000 UNITS IV PUSH (12:44)
[2024-01-19] MEDS: HEPARIN SODIUM 1,000 UNITS/ML VIAL 5000 UNITS (12:45)
[2024-01-19] MEDS: CHOLECALCIFEROL 1,000 UNITS TABLET 5000 UNITS PO (14:07)
[2024-01-19] MEDS: ISOSORBIDE MONONITRATE 60 MG TAB.ER.24H 120 MG PO (14:08)
[2024-01-19] MEDS: minoxidiL 2.5 MG TABLET PO ×2 (14:08→17:41)
[2024-01-19] MEDS: SERTRALINE HCL 50 MG TABLET PO (14:08)
[2024-01-19] MEDS: DOLUTEGRAVIR SODIUM 50 MG TABLET PO ×2 (14:08→20:44)
[2024-01-19] MEDS: carvediloL 12.5 MG TABLET 25 MG PO ×2 (14:08→20:45)
[2024-01-19] MEDS: ASPIRIN 81 MG ENTERIC TABLET PO (14:08)
[2024-01-19] MEDS: FOLIC ACID 1 MG TABLET PO (14:08)
[2024-01-19] MEDS: AZITHROMYCIN 250 MG TABLET 500 MG PO (14:11)
[2024-01-19] MEDS: CALCIUM ACETATE 667 MG TABLET PO ×2 (14:17→17:40)
[2024-01-19] MEDS: SULFAMETHOXAZOLE/TRIMETHOPRIM 400/80 MG TABLET 1 TAB PO (14:17)
[2024-01-19] MEDS: VANCOMYCIN 500 MG/NS 100 ML 500 MG/100 ML BAG 100 MG IVPB (20:43)
[2024-01-19] MEDS: DOXAZOSIN MESYLATE 4 MG TABLET 8 MG PO (20:44)
[2024-01-19] MEDS: AMOXICILLIN/CLAVULANATE K 500-125 MG TAB 1 TABLET PO (20:44)
[2024-01-19] MEDS: traZODone HCL 25 MG TABLET PO (20:45)
[2024-01-20] VITALS (20 sets, daily range): BP systolic 118–173; BP diastolic 74–103; PULSE 62–71; RESP 16–18; TEMP 36.1–37; O2SAT 96–100
[2024-01-20 07:16] LABS: Basophils Percent Auto 0.3 % (0.2-1.2); Eosinophils Percent Auto 0.7 % (0-4.4); Hematocrit 32.1 % (42.0-52.0); Hemoglobin 10.5 g/dL (14.0-18.0); Immature Granulocyte Absolute 0.17 K/mm3 (0.00-0.031); Immature Granulocyte Percent A 2.8 % (0-0.5); Lymphocytes Absolute Auto 1.05 K/mm3 (0.9-3.2); Lymphocytes Percent Auto 17.5 % (18.3-44.2); Mean Corpuscular HGB Conc 32.7 g/dl (32-36); Mean Corpuscular Hemoglobin 31.6 pg (26-34); Mean Corpuscular Volume 96.7 fl (80-100); Mean Platelet Volume 11.7 fl (7.4-10.4); Monocytes Absolute Auto 0.7 K/mm3 (0.1-0.6); Neutrophils Percent Auto 66.7 % (45.5-73.1); Nucleated Red Blood Cells Perc 0.3 % (0.0-0.2); Platelet Count Result 113 k/mm3 (150-375); Red Blood Count 3.32 M/mm3 (4.6-6.20); Red Cell Distribution Width 15.6 % (11.5-14.5)
--- NOTE | 2024-01-20 07:33 | PM.IMPN ---
Progress Note: A&P Assessment and Plan (1) End-stage renal disease on hemodialysis: Code(s): N18.6 - End stage renal disease; Z99.2 - Dependence on renal dialysis Status: Acute (2) Acute hypoxemic respiratory failure: Code(s): J96.01 - Acute respiratory failure with hypoxia Status: Acute (3) HIV disease: Code(s): B20 - Human immunodeficiency virus [HIV] disease Status: Acute Plan This is a 68-year-old male with past medical history significant for HIV/ aids, end-stage renal disease on hemodialysis, rectal CA, hypertension, COPD. Patient presents to the emergency room with 3-4 days of diarrhea generalized weakness and 1 episode of fever. at the time of my visit patient. Initially was found to have to be hypoxic and placed on high-flow oxygen. Preliminary workup has been CT of chest abdomen and pelvis with bilateral trace pleural effusions. (1) Acute hypoxemic respiratory failure: Code(s): J96.01 - Acute respiratory failure with hypoxia Status: Acute Assessment and Plan: Possible due COPD exacerbation and fluid overload CT shows interstitial edema, trace bilateral pleural effusion Patient has end-stage renal disease on dialysis, consult [employer] for dialysis Provide O2 therapy to keep pulse ox above 94 Patient need for L oxygen upon arrival in the ED Now patient feels better regarding dyspnea Patient need 3-4 L now Bacteremia Blood culture grows MRSA in both bottles 01/15 Patient is on hemodialysis, risk of dialysis catheter induced bacteremia May need to replace the catheter Management per [employer] c/w current abx repeat bcx 01/17, positive for better cocci in cluster possible MRSA (2) HIV disease: Code(s): B20 - Human immunodeficiency virus [HIV] disease Status: Acute Assessment and Plan: patient is on HAART follow-up in outpatient setting (3) GERD (gastroesophageal reflux disease): Code(s): K21.9 - Gastro-esophageal reflux disease without esophagitis Status: Acute Assessment and Plan: PPI (4) COPD (chronic obstructive pulmonary disease): Qualifiers: COPD type: COPD with acute lower respiratory infection Qualified Code(s): J44.0 - Chronic obstructive pulmonary disease with (acute) lower respiratory infection Code(s): J44.9 - Chronic obstructive pulmonary disease, unspecified Status: Acute Assessment and Plan: Possible COPD exacerbation due to acute better bronchitis versus atypical pneumonia Patient has productive cough with with fever; CT shows interstitial changes pt is on azithromycin and cefepime and vancomycin Follow MRSA screening positive, prolactin level: 17.9 that is trending down Continue current antibiotics (5) End-stage renal disease on hemodialysis: Code(s): N18.6 - End stage renal disease; Z99.2 - Dependence on renal dialysis Status: Acute Assessment and Plan: Consult [employer] for dialysis continue hemodialysis Diarrhea Patient had fever and diarrhea Pending stool culture, white blood cell stool smear Resolved Essential hypertension Hold hypertension medications, blood pressure on lower side Suspecting dialysis catheter induced a MRSA bacteremia. I have discussed this case with [employer], [employer] scans to perform dialysis today and tomorrow and then remove dialysis catheter. Patient follow-up with [employer], Infectious Disease , vascular surgeon in [facility]. I have called the transfer center for [facility] and discussed the case with hospitalist in [facility]. Patient is accepted, patient is on the waiting list to be transferred Subjective Date/time seen: 01/20/24 07:33 Interval history: I saw examined patient today, patient feels dyspnea is improving, exercise tolerance increase. Patient denies chest pain abdomen pain nausea vomiting diarrhea. Patient afebrile, blood pres
[2024-01-20 07:57] LABS: Alanine Aminotransferase 40 U/L (6-50); Albumin Level 3.5 g/dL (3.5-5.1); Alkaline Phosphatase 62 U/L (38-126); Anion Gap 10 mmol/L (4-12); Aspartate Amino Transferase 30 U/L (17-59); Bilirubin,Total 0.5 mg/dL (0.2-1.3); Blood Urea Nitrogen 40 mg/dL (9-20); Calcium 8.1 mg/dL (8.4-10.2); Carbon Dioxide 30 mmol/L (22-30); Chloride 96 mmol/L (98-107); Estimated CRCL calculation 10 ml/min; Estimated Glomerular Filt Rate 9; Glucose 91 mg/dL (65-110); Potassium 4.3 mmol/L (3.4-5.0); Sodium 136 mmol/L (137-145)
[2024-01-20] MEDS: AMOXICILLIN/CLAVULANATE K 500-125 MG TAB 1 TABLET PO (08:33)
[2024-01-20] MEDS: SERTRALINE HCL 50 MG TABLET PO (08:33)
[2024-01-20] MEDS: CHOLECALCIFEROL 1,000 UNITS TABLET 5000 UNITS PO (08:33)
[2024-01-20] MEDS: AZITHROMYCIN 250 MG TABLET 500 MG PO (08:33)
[2024-01-20] MEDS: ISOSORBIDE MONONITRATE 60 MG TAB.ER.24H 120 MG PO (08:33)
[2024-01-20] MEDS: carvediloL 12.5 MG TABLET 25 MG PO (08:33)
[2024-01-20] MEDS: ASPIRIN 81 MG ENTERIC TABLET PO (08:33)
[2024-01-20] MEDS: minoxidiL 2.5 MG TABLET PO ×2 (08:33→17:47)
[2024-01-20] MEDS: CALCIUM ACETATE 667 MG TABLET PO ×3 (08:33→17:47)
[2024-01-20] MEDS: LIDOCAINE 5% PATCH 1 PATCH TRANSDERM (08:34)
[2024-01-20] MEDS: DOLUTEGRAVIR SODIUM 50 MG TABLET PO (08:34)
[2024-01-20] MEDS: FOLIC ACID 1 MG TABLET PO (08:34)
[2024-01-20] MEDS: polyethylene glycoL 3350 17 GM POWD.PACK PO (08:34)
[2024-01-20] MEDS: oxyCODONE HCL (*CRX) 5 MG TAB IR PO ×2 (08:34→19:06)
--- NOTE | 2024-01-20 09:56 | PM.TDS ---
Transfer Discharge Sum: Prov Provider Date of admission: 01/16/24 23:05 Primary care physician: UNKNOWN,DOCTOR Admitting clinician: Ronald Ruelas MD Consults: 01/16/24 23:05 Consult to Physician Routine Comment: Spoke to Dr Lalita lin ([facility]) Consulting Provider: Sheldon Ackerman Reason for consultation: Dialysis Has provider been notified: Yes DS: Admitting Diagnosis Discharge Date 01/19 Admitting Diagnosis (1) End-stage renal disease on hemodialysis: Code(s): N18.6 - End stage renal disease; Z99.2 - Dependence on renal dialysis Status: Acute (2) Acute hypoxemic respiratory failure: Code(s): J96.01 - Acute respiratory failure with hypoxia Status: Acute (3) HIV disease: Code(s): B20 - Human immunodeficiency virus [HIV] disease Status: Acute DS: Discharge Diagnosis Discharge Diagnosis (1) End-stage renal disease on hemodialysis: Code(s): N18.6 - End stage renal disease; Z99.2 - Dependence on renal dialysis Status: Acute (2) Acute hypoxemic respiratory failure: Code(s): J96.01 - Acute respiratory failure with hypoxia Status: Acute (3) HIV disease: Code(s): B20 - Human immunodeficiency virus [HIV] disease Status: Acute Transfer Discharge Sum: Med Medications Active and Home Medications: Home Medications albuterol sulfate 2.5 mg/3 mL (0.083 %) solution for nebulization 2.5 mg inhalation Q6H PRN Wheezing 01/17/24 [History Confirmed 01/17/24] albuterol sulfate 90 mcg/actuation aerosol inhaler 2 puff inhalation Q6H PRN Wheezing 01/17/24 [History Confirmed 01/17/24] amlodipine 10 mg tablet 10 mg PO DAILY 01/17/24 [History Confirmed 01/17/24] aspirin 81 mg tablet 81 mg PO DAILY 01/17/24 [History Confirmed 01/17/24] calcitriol 0.5 mcg capsule 0.5 mcg PO QMWF 01/17/24 [History Confirmed 01/17/24] calcium acetate(phosphat bind) 667 mg capsule 667 mg PO TIDWM 01/17/24 [History Confirmed 01/17/24] carvedilol 12.5 mg tablet 25 mg PO BID 01/17/24 [History Confirmed 01/17/24] cholecalciferol (vitamin D3) 125 mcg (5,000 unit) capsule 125 mcg PO DAILY 01/17/24 [History Confirmed 01/17/24] clonidine HCl 0.2 mg tablet 0.2 mg PO TID 01/17/24 [History Confirmed 01/17/24] cyclobenzaprine 5 mg tablet 5 mg PO BID 01/17/24 [History Confirmed 01/17/24] darunavir 800 mg-cobicistat 150 mg tablet (Prezcobix) 1 tablet PO DAILY 01/17/24 [History Confirmed 01/17/24] dolutegravir 50 mg tablet (Tivicay) 50 mg PO BID 01/17/24 [History Confirmed 01/17/24] doxazosin 8 mg tablet 8 mg PO HS 01/17/24 [History Confirmed 01/17/24] entecavir 0.5 mg tablet 0.5 mg PO WEEKLY 01/17/24 [History Confirmed 01/17/24] folic acid 1 mg tablet 1 mg PO DAILY 01/17/24 [History Confirmed 01/17/24] fostemsavir 600 mg tablet,extended release,12 hr (Rukobia) 600 mg PO BID 01/17/24 [History Confirmed 01/17/24] isosorbide mononitrate 120 mg tablet,extended release 24 hr 120 mg PO DAILY 01/17/24 [History Confirmed 01/17/24] losartan 100 mg tablet 100 mg PO DAILY 01/17/24 [History Confirmed 01/17/24] minoxidil 2.5 mg tablet 2.5 mg PO BID 01/17/24 [History Confirmed 01/17/24] ondansetron 4 mg disintegrating tablet 4 mg PO PRN PRN Nausea And Vomiting 01/17/24 [History Confirmed 01/17/24] sertraline 50 mg tablet 50 mg PO DAILY 01/17/24 [History Confirmed 01/17/24] sulfamethoxazole 400 mg-trimethoprim 80 mg tablet 1 tablet PO QMWF 01/17/24 [History Confirmed 01/17/24] trazodone 50 mg tablet 25 mg PO HS 01/17/24 [History Confirmed 01/17/24] triamcinolone acetonide 0.1 % topical ointment 1 applic topical PRN PRN Rash 01/17/24 [History Confirmed 01/17/24] Active Medications Al Hydrox/Mg Hydrox/Simethicone (Mag Hydrox/Al Hydrox/Simeth 30 Ml Udc) 30 ml PO BID PRN PRN Reason: Indigestion Last Admin: 01/18/24 20:56 Dose: 30 ml Albuterol (Albuterol Sulfate Neb 2.5 Mg/3 Ml Inh) 2.5 mg INHALATION Q6H PRN PRN Reason: Wheezing Amoxicillin/Clavulanate Potassium (Amoxicillin/Clavulanate K 500-125 Mg Ta
[2024-01-20 12:06] LABS: SARS-CoV-2 RNA PCR Negative (Negative)
[2024-01-20] MEDS: SODIUM CHLORIDE 0.9% IV 1,000 ML 999 ML IV CONT (13:16)
--- NOTE | 2024-01-20 13:45 | P.PNNP_ITS ---
Progress Note: A&P Assessment and Plan (1) End stage renal disease: Code(s): N18.6 - End stage renal disease Status: Chronic Assessment and Plan: * HD today as well as tomorrow (see #2) * continue Wed/Wed/Wednesday dialysis schedule while hospitalized * follow electrolytes, volume status, and clearance (2) Bacteremia: Code(s): R78.81 - Bacteremia Status: Acute Assessment and Plan: * positive blood culture noted with MRSA (8) * repeat blood cultures (8) positive as well * already on antibiotic therapy * concern is that this may be related to HD catheter * further complicated by immunocompromised status (HIV) * plan HD today and tomorrow followed by removal of HD catheter after dialysis tomorrow and attempt to leave catheter free for as long as possible * Surgery consulted for HD catheter removal AFTER dialysis tomorrow * if bacteremia clears, then can place new tunneled HD catheter * if bacteremia persists, may need temporary HD catheter placement * attempt being made to transfer patient to [facility] where he receives the majority of his care but if this does not occur in a timely [facility] [place], proceed with plan of HD today and tomorrow followed by HD catheter removal (3) Acute hypoxemic respiratory failure: Code(s): J96.01 - Acute respiratory failure with hypoxia Status: Acute Assessment and Plan: * as noted on admission * suspect related to volume overload and pneumonia by admission imaging * possible component of COPD playing a role... * continue supplemental high flow oxygen therapy - wean as tolerated * fluid removal with dialysis * follow culture data - see #2 * on antibiotics * follow respiratory status (4) Pneumonia: Code(s): J18.9 - Pneumonia, unspecified organism Status: Acute Assessment and Plan: * admission imaging suggestive * follow culture data * on antibiotics (5) Hypertension: Code(s): I10 - Essential (primary) hypertension Status: Chronic Assessment and Plan: * reasonable control at this time * follow trend of hemodynamics (6) COPD (chronic obstructive pulmonary disease): Qualifiers: COPD type: COPD with acute lower respiratory infection Qualified Code(s): J44.0 - Chronic obstructive pulmonary disease with (acute) lower respiratory infection Code(s): J44.9 - Chronic obstructive pulmonary disease, unspecified Status: Chronic Assessment and Plan: * contributing factor with regard to #3 * on supplemental oxygen * nebulizer treatments (7) Anemia: Qualifiers: Anemia type: unspecified type Qualified Code(s): D64.9 - Anemia, unspecified Code(s): D64.9 - Anemia, unspecified Status: Chronic Assessment and Plan: * due to ESRD * JOSR with dialysis * follow trend of H/H (8) HIV disease: Code(s): B20 - Human immunodeficiency virus [HIV] disease Status: Acute Assessment and Plan: * continue HAART Will continue to follow. Subjective Date/time seen: 01/20/24 13:45 Interval history: Follow-up for end stage renal disease on hemodialysis. Tolerated dialysis treatment yesterday without any issues or problems; feels that his breathing/respiratory status is doing better in general; repeat blood culture positive (reported yesterday afternoon); attempting to transfer to [facility] since he gets all of his care there; no apparent distress noted; tolerating dialys
--- NOTE | 2024-01-20 13:45 | PM.PNNEP ---
Progress Note: A&P Assessment and Plan (1) End stage renal disease: Code(s): N18.6 - End stage renal disease Status: Chronic Assessment and Plan: HD today as well as tomorrow (see #2) continue Wed/Wed/Wednesday dialysis schedule while hospitalized follow electrolytes, volume status, and clearance (2) Bacteremia: Code(s): R78.81 - Bacteremia Status: Acute Assessment and Plan: positive blood culture noted with MRSA (8/25) repeat blood cultures (8/27) positive as well already on antibiotic therapy concern is that this may be related to HD catheter further complicated by immunocompromised status (HIV) plan HD today and tomorrow followed by removal of HD catheter after dialysis tomorrow and attempt to leave catheter free for as long as possible Surgery consulted for HD catheter removal AFTER dialysis tomorrow if bacteremia clears, then can place new tunneled HD catheter if bacteremia persists, may need temporary HD catheter placement attempt being made to transfer patient to [facility] [place] where he receives the majority of his care but if this does not occur in a timely fashion, proceed with plan of HD today and tomorrow followed by HD catheter removal (3) Acute hypoxemic respiratory failure: Code(s): J96.01 - Acute respiratory failure with hypoxia Status: Acute Assessment and Plan: as noted on admission suspect related to volume overload and pneumonia by admission imaging possible component of COPD playing a role... continue supplemental high flow oxygen therapy - wean as tolerated fluid removal with dialysis follow culture data - see #2 on antibiotics follow respiratory status (4) Pneumonia: Code(s): J18.9 - Pneumonia, unspecified organism Status: Acute Assessment and Plan: admission imaging suggestive follow culture data on antibiotics (5) Hypertension: Code(s): I10 - Essential (primary) hypertension Status: Chronic Assessment and Plan: reasonable control at this time follow trend of hemodynamics (6) COPD (chronic obstructive pulmonary disease): Qualifiers: COPD type: COPD with acute lower respiratory infection Qualified Code(s): J44.0 - Chronic obstructive pulmonary disease with (acute) lower respiratory infection Code(s): J44.9 - Chronic obstructive pulmonary disease, unspecified Status: Chronic Assessment and Plan: contributing factor with regard to #3 on supplemental oxygen nebulizer treatments (7) Anemia: Qualifiers: Anemia type: unspecified type Qualified Code(s): D64.9 - Anemia, unspecified Code(s): D64.9 - Anemia, unspecified Status: Chronic Assessment and Plan: due to ESRD JOSR with dialysis follow trend of H/H (8) HIV disease: Code(s): B20 - Human immunodeficiency virus [HIV] disease Status: Acute Assessment and Plan: continue HAART Will continue to follow. Subjective Date/time seen: 01/20/24 13:45 Interval history: Follow-up for end stage renal disease on hemodialysis. Tolerated dialysis treatment yesterday without any issues or problems; feels that his breathing/respiratory status is doing better in general; repeat blood culture positive (reported yesterday afternoon); attempting to transfer to [facility] since he gets all of his care there; no apparent distress noted; tolerating dialysis treatment at the time of my visit (seen on HD at 1:35PM). Exam Narrative: General: WD/WN male in NAD Heart: normal S1 and S2; no rub Lungs: coarse breath sounds noted Abdomen: soft, nontender, nondistended, positive bowel sounds Extremities: no cyanosis or clubbing; no edema Skin: no rash Objective Data Vital Signs Vital Signs: Vital Signs Temp Pulse Resp BP Pulse Ox O2 Del Method O2 Flow Rate 01/20/24 08:00 96 High
[2024-01-20] MEDS: EPOETIN ALFA-EPBX 4,000 UNITS/ML VIAL 4000 UNITS IV PUSH (15:29)
== END 2024-01-20 19:30 | disposition short-term general hospital (02) | DRG 189 ==
LOC: ANHED 23:08 → ANHIMU 23:29 → ANH2MED 01-17 16:53
PROVIDERS: Emergency Medicine; Internal Medicine Nephrology; Admitting Provider Internal Medicine; Emergency Provider Student in an Organized Health Care Education/Training Program; Visit Provider Hospitalist
DX: J96.01 Acute respiratory failure with hypoxia (principal); N18.6 End stage renal disease; J18.9 Pneumonia, unspecified organism; J15.212 Pneumonia due to Methicillin resistant Staphylococcus aureus; I12.0 Hypertensive chronic kidney disease with stage 5 chronic kidney disease or end stage renal disease; J44.0 Chronic obstructive pulmonary disease with (acute) lower respiratory infection; J44.1 Chronic obstructive pulmonary disease with (acute) exacerbation; R78.81 Bacteremia; Z21 Asymptomatic human immunodeficiency virus [HIV] infection status; K21.9 Gastro-esophageal reflux disease without esophagitis; K75.9 Inflammatory liver disease, unspecified; R19.7 Diarrhea, unspecified; Z99.2 Dependence on renal dialysis; Z85.048 Personal history of other malignant neoplasm of rectum, rectosigmoid junction, and anus; Z20.822 Contact with and (suspected) exposure to COVID-19
CPT/HCPCS: 36415; 36600; 71046; 71260; 74177; 80048; 80053; 80202; 82565; 82805; 83605; 84145; 84484; 85025; 85055; 85610; 85730; 86140; 86706; 87040; 87045; 87077; 87181; 87340; 87427; 87449; 87635; 87641; 93005; 94640; 96365; 96366; 96367; 96368; 96375; 99285; A9270; G0257; J0456; J0692; J1644; J2919; J3370; J3475; J7030; J7120; Q5105; Q9967

== ENCOUNTER 2024-08-19 19:53 | Inpatient (IN) | payer MEDICARE, MEDICAID, SELFPAY ==
--- NOTE | ~2024-08-19 | CT_ITS ---
History: Altered mental status PROCEDURE: CT head without contrast. COMPARISON: None 03/05/2016 TECHNIQUE: Axial imaging of the head performed from the skull base to the vertex without IV contrast. Sagittal a nd coronal reformations obtained. Examination is markedly limited by motion artifact. DLP: 1362 mGy-cm FINDINGS: The ventricles are normal in size, shape and position. There is no mass, mass effect or midline shift. There is no abnormal extra-axial fluid collection or intracranial hemorrhage. Visualized paranasal sinuses are clear. The mastoid air cells are well aerated. No acute displaced fractures within the overlying cranium. Redemonstration of punctate metallic foreign bodies x2 within the right frontal scalp/cranium. Impression: No acute intracranial hemorrhage or suspicious mass effect. Reviewed, dictated and finalized at location A. Impression: No acute intracranial hemorrhage or suspicious mass effect.
--- NOTE | ~2024-08-19 | XR_ITS ---
EXAMINATION: XR chest port-a-cath/central DATE: 08/22/2024 13:35 INDICATION: Tunneled dialysis catheter placement TECHNIQUE: frontal view of the chest was obtained. COMPARISON: 08/21/2024 FINDINGS: Interval placement of a large-bore dual-lumen, likely tunneled right internal jugular central venous catheter with distal tip at the high right atrium. Endotracheal tube tip 7.1 cm above the heather. Mild interstitial and airspace opacities in the bilateral upper lung zones, left perihilar region and left lower lung zone. No pleural effusion or pneumothorax. Cardiomegaly. Visualized bones and soft t issues are unremarkable. IMPRESSION: 1. Likely tunneled right internal jugular central venous catheter with distal tip at the high right a trium. No pneumothorax. 2. Endotracheal tube tip 7.1 cm above the heather. Consider advancement by 4 cm. 3. Mild interstitial and airspace opacities in the bilateral upper lung zones, left perihilar region and left lower lung zone which could represent atelectasis, mild pulmonary edema or pneumonia. 4. Cardiomegaly. Reviewed, dictated and finalized at location A. IMPRESSION: 1. Likely tunneled right internal jugular central venous catheter with distal t ip at the high right atrium. No pneumothorax. 2. Endotracheal tube tip 7.1 cm above the heather. Consider advancement by 4 cm. 3. Mild interstitial and airspace opacities in the bilateral upper lung zones, left perihilar region and left lower lung zone which could represent atelectasi s, mild pulmonary edema or pneumonia. 4. Cardiomegaly.
--- NOTE | ~2024-08-19 | XR_ITS ---
EXAMINATION: XR chest ET placement, XR abdomen gastric tube insert DATE: 08/22/2024 14:48 INDICATION: Intubation. Orogastric tube placement. TECHNIQUE: 1. Frontal view of the chest was obtained for assessment of endotracheal tube position. 2. AP view of the upper abdomen was obtained for assessment for gastric tube position. COMPARISON: Chest radiograph dated 08/22/2024 at 1:31 PM FINDINGS: Endotracheal tube tip 7.4 cm above the heather. Large-bore dual-lumen likely tunneled right internal j ugular central venous catheter with distal tip at the superior cavoatrial junction. Orogastric tube t ip and proximal side port in the body the stomach. Mild streaky opacities at the left lung base. Additional prior opacities in the left perihilar region and bilateral upper lung zones have resolved. No pleural effusion or pneumothorax. Heart size is nor mal. IMPRESSION: 1. Endotracheal tube tip 7.4 cm above the heather. Recommend advancement by 5 cm. 2. Orogastric tube in expected position in the stomach. 2. Improvement in prior bilateral airspace opacities with residual mild streaky opacities at left grant g base most likely atelectasis with differential including minimal pulmonary edema or pneumonia. Reviewed, dictated and finalized at location A. IMPRESSION: 1. Endotracheal tube tip 7.4 cm above the heather. Recommend advancement by 5 cm . 2. Orogastric tube in expected position in the stomach. 2. Improvement in prior bilateral airspace opacities with residual mild streaky opacities at left lung base most likely atelectasis with differential includin g minimal pulmonary edema or pneumonia.
--- NOTE | ~2024-08-19 | XR_ITS ---
Portable chest x-ray Comparison: 08/22/2024 Clinical History: Respiratory failure Findings: Endotracheal tube, NG tube, and right-sided central venous line are in place. There is mil d haziness left lung base. Right lung clear. Cardiomediastinal silhouette is stable. Bones and soft tissues are unremarkable. Impression: Mild haziness left lung base. Correlate for atelectasis or pneumonia. Support tubes, as above. Reviewed, dictated and finalized at location . Impression: Mild haziness left lung base. Correlate for atelectasis or pneumonia. Support tubes, as above.
--- NOTE | ~2024-08-19 | XR_ITS ---
CHEST RADIOGRAPH CLINICAL HISTORY: AMS . COMPARISON: 01/16/2024 TECHNIQUE: Single portable view of the chest. FINDINGS Tunneled right subclavian central venous hemodialysis catheter identified with its tip projecting ove r the cavoatrial junction. The remainder of the cardiomediastinal silhouette is otherwise unremarkable. The lungs are clear. IMPRESSION: No focal infiltrate or effusion. Reviewed, dictated and finalized at location A.
--- NOTE | ~2024-08-19 | XR_ITS ---
XR chest 1V portable 08/21/2024 13:51 Indication: Dialysis catheter pulled out Procedure: 2 view chest Comparison: Comparison to multiple prior studies sequentially, with oldest reviewed study dated 11/19. Findings: Moderate cardiomegaly. There is atherosclerosis and ectasia of the aorta. No focal air spac e disease, pulmonary edema, pleural effusion or suspected pneumothorax. Impression: 1: Moderate cardiomegaly. Reviewed, dictated and finalized at location A. Impression: 1: Moderate cardiomegaly.
--- NOTE | ~2024-08-19 | CT_ITS ---
CLINICAL INDICATION: Altered mental status COMPARISON: 01/16/2024 TECHNIQUE: Multiple contiguous axial images of the chest, abdomen and pelvis were performed without t he administration of intravenous contrast The dose-length product (DLP) was 1270.03 mGy-cm. Automated exposure control and iterative reconstruction technique were employed. FINDINGS/OBSERVATIONS: LUNG: Significant panlobular emphysematous disease with interstitial thickening, likely chronic. MEDIASTINUM: Limited evaluation without intravenous contrast. HEART: The heart is of normal size, without pericardial effusion. SOFT TISSUES OF THE CHEST: Unremarkable. Liver: The liver demonstrates diffuse fatty infiltration and is enlarged measuring 20 cm in longitudinal dim ension. Gallbladder and biliary system: The gallbladder is distended, and otherwise unremarkable. Pancreas: Limited evaluation of the pancreas secondary to the lack of intravenous contrast. Spleen: The spleen demonstrates homogeneous attenuation and is borderline enlarged measuring 12 cm in longitu dinal dimension. Kidneys: The bilateral kidneys are atrophic, without hydronephrosis or renal calculi. Adrenal glands: Unremarkable. Gastrointestinal tract: Significant mural thickening within the entirety of the colon, with surrounding inflammatory change. Appendix: Surgically absent. Vasculature: Densely calcified atherosclerotic disease. Lymph nodes: Limited evaluation without intravenous contrast. Pelvic structures: The bladder is decompressed and otherwise unremarkable. The prostate gland is not enlarged. Body wall and musculoskeletal: Anasarca is present. Age-appropriate degenerative disease within the thoracic and lumbosacral spines without acute leonel harmeet fracture. IMPRESSION: Mural thickening within the colon, with diffuse anasarca. Reviewed, dictated and finalized at location A.
--- NOTE | ~2024-08-19 | CT_ITS ---
History: Altered mental status PROCEDURE: CT head without contrast. COMPARISON: None 08/20/2024 TECHNIQUE: Axial imaging of the head performed from the skull base to the vertex without IV contrast. Sagittal a nd coronal reformations obtained. DLP: 681 mGy-cm FINDINGS: The ventricles are enlarged. The dilatation of the ventricles is proportional to the degree of sulcal prominence, not uncommon in the senescent brain. Decreased attenuation is identified within the periventricular white matter, likely secondary to micr ovascular ischemic disease, in a patient of this age. There is no mass, mass effect or midline shift. There is no abnormal extra-axial fluid collection or intracranial hemorrhage. Visualized paranasal sinuses demonstrate inflammatory change. The mastoid air cells are well aerated. No acute displaced fractures within the overlying cranium. Impression: No acute intracranial hemorrhage or suspicious mass effect. Inflammatory sinus disease. Reviewed, dictated and finalized at location A. Impression: No acute intracranial hemorrhage or suspicious mass effect. Inflammatory sinus disease.
--- NOTE | ~2024-08-19 | XR_ITS ---
EXAMINATION: XR lumbar puncture diagnostic DATE: 08/22/2024 15:39 INDICATION: Altered mental status TECHNIQUE: The procedure including the risks and benefits was discussed with the patient. Risks discu ssed included spinal headache, cerebrospinal fluid leak, bleeding, and infection. The patient underst ood the risks and agreed to proceed. A timeout was performed to verify the patient's name, date of , and procedure to be performed. The skin overlying the L3-L4 level was prepped and draped in usual sterile fashion. A 20 gauge spinal needle was advanced under fluoroscopic guidance. The needle was removed and the entry site was cleaned and dressed. There were no immediate complications. A to suad of 2 fluoroscopic image(s) and one crosstable lateral radiograph were obtained. The amount of flu oroscopy time used during this procedure was 0.1 minutes. Total DAP was 6.607 Gycm^2. There were no i mmediate complications. FINDINGS: Real-time fluoroscopy demonstrates the needle at the L3-L4 level. Opening pressure was 15 c m water. (Normal range is variably defined as 6-20 cm water and up to 25 cm water in obese patients. Pressure >25 cm water is one of the modified Dandy criteria for idiopathic intracranial hypertension) . 15 mL of clear, colorless fluid was collected in 4 tubes. IMPRESSION: 1. Successful fluoro-guided lumbar puncture with normal opening pressure of 15 cm water. Reviewed, dictated and finalized at location A.
--- NOTE | ~2024-08-19 | XR_ITS ---
EXAMINATION: XR fl guide central line place DATE: 08/22/2024 13:35 INDICATION: Tunneled dialysis catheter insertion TECHNIQUE: Single fluoroscopic image of the central chest was obtained during procedure performed by Dr. Christianson. Radiologist was not present for the imaging or procedure. The amount of fluoroscopy time u sed during this procedure was 0.3 minutes. Total DAP was 0.0623 mGym^2. COMPARISON: Chest radiograph dated 08/21/2024 FINDINGS: Large-bore dual-lumen central venous catheter extends caudally from the region of the right brachioce phalic vein with distal tip near the superior cavoatrial junction. Small portion of the catheter in t he region of the right clavicle and extends beyond the [id number] but with subsequent image demons trate the catheter enters via the right internal jugular vein. Distal tip of an endotracheal tube pro jects over the midthoracic trachea. IMPRESSION: 1. Right internal jugular central venous catheter tip near the superior cavoatrial junction. See proc edure note for further detail. Reviewed, dictated and finalized at location A. IMPRESSION: 1. Right internal jugular central venous catheter tip near the superior cavoatr ial junction. See procedure note for further detail.
[2024-08-19 19:57] VITALS: BP 168/122; PULSE 69; RESP 14; TEMP 37.1; O2SAT 95
[2024-08-19 20:03] VITALS: PULSE 65
--- OUTSIDE RECORDS SUMMARY | 2024-08-19 21:15 | XMS_ITS | Encounter Summary ---
Author Organization [facility] Health Address [address] [place] [address] Care Team Providers Care Flask Maker Name Role Phone Josh Parham MD Primary Care Provider Josh Parham MD Unavailable [phone] Josh Parham MD Unavailable [phone] Josh Parham MD Unavailable [phone] Care, [facility] Unavailable [phone] Josh Parham MD Unavailable [phone] Cami Aguilar RN Unavailable [phone] Charu Carter GAME FARM SUPERVISOR-POT RELINER Unavailable [phone] Josh Parham MD Unavailable [phone] Encounter Details Date Type Department Care Team (Late st Contact Info) Description 06/30/2016 [facility] Outpatient Visit 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 Sexual Orientation Not on file documented as of this encounter Plan of Treatment Upcoming Encounters Date Type Department Care Team (Late st Contact Info) Description 10/03/2024 1:30 PM CDT Office Visit [facility] - Internal Medicine [address] [facility] [address] [place] [address] [place] [address] [place] [id number] documented as of this encounter Visit Diagnoses Not on filedocumented in this encounter Care Teams Flask Maker Relationship Specialty Start Date End Date Josh Parham MD PCP - General Internal Medicine 05/27/11 Josh Parham MD [address] [id number] PCP - Attributed-MSSP 11/29/16 06/12/21 Josh Parham MD [address] [id number] PCP - Attributed-[place] 09/21/22 12/08/22 Josh Parham MD [address] [id number] PCP - Attributed-[facility] [place] 10/22/22 Josh Parham MD [address] [id number] PCP - [facility] 01/22/23 11/21/23 Charu Carter, GAME FARM SUPERVISOR-POT RELINER [address] [place] [phone] PCP - [facility] 11/22/23 03/23/24 Josh Parham MD [address] [id number] PCP - [facility] 03/24/24 Care, [facility] Kid[facility] Care Management 12/23/22 Cami Aguilar RN Community Outreach ManagerSmall Parts Shaper Operator 09/03/23 09/07/23 documented as of this encounter
--- OUTSIDE RECORDS SUMMARY | 2024-08-19 21:15 | XMS_ITS | Clinical Summary ---
Author Organization [facility] [employer] Address [address] [place] [address] Care Team Providers Care Director Selection And Administration Name Role Phone Josh Parham MD Primary Care Provider [phone] Care, [facility] Unavailable [phone] Josh Parham MD Unavailable [phone] Source Comments [facility],non-owned Affiliates and Associated Physician Practices is amultiple site organization consisting of ambulatory clinics and hospital sitesin [place], [place], [place] and [place]. This disclosure is being madepursuant to the Care Everywhere program and may not contain all information available regarding this patient. Last updated 18.[facility] Allergies No known active allergies Medications * Be aware that medications may not be up to date on this document. Alwaysverify current medications with the patient. Medication Sig Dispensed Refills Start Date End Date Status Tivicay 50 MG tabletIndications:AI DS (acquired immune deficiency syndrome) (HCC) TAKE 1 TABLET(50 MG) BY MOUTH TWICE DAILY 60 tablet 06/19/19 23 Active calcitriol (Rocaltrol) 0.5 MCG capsule Take 1 (one) capsule by mouth once daily 03/19/20 23 Active calcium acetate (Phoslo) 667 MG capsule Take 1 (one) capsule by mouth 3 times daily before meals 04/08/20 23 Active vitamin D3 (Cholecalciferol) 125 MCG (5000 UT) capsule Take 1 (one) capsule by mouth once daily 09/06/19 24 025 Active folic acid (Folvite) 1 MG tablet Take 1 (one) tablet by mouth once daily 09/06/19 24 025 Active losartan (Cozaar) 100 MG tablet Take 1 (one) tablet by mouth once daily 09/06/19 24 025 Active darunavir-cobicistat (Prezcobix) 800-150 MG tabletIndications: man Immunodeficiency Virus Disease Take 1 (one) tablet by mouth once daily Reasons: HIV Disease 30 tablet 10/07/19 24 Active fostemsavir ER 12hr (Rukobia) 600 MG tabletIndications: man Immunodeficiency Virus Disease Take 1 (one) tablet by mouth 2 times daily Reasons: HIV Disease 60 tablet 10/22/19 24 Active amLODIPine (Norvasc) 10 MG tablet Take 1 (one) tablet by mouth once daily 02/02/20 24 Active entecavir (Baraclude) 0.5 MG tablet Take 1 (one) tablet by mouth every 7 days 11/02/19 24 Active minoxidil (Loniten) 2.5 MG tablet Take 2 (two) tablets by mouth 2 times daily 10/15/19 24 Active ondansetron, disintegrating, (Zofran ODT) 4 MG tablet Take 1 (one) tablet by mouth every 8 hours as needed 11/02/19 24 Active carvedilol (Coreg) 12.5 MG tablet Take 1 (one) tablet by mouth 2 times daily 02/02/20 24 Active albuterol HFA (Proventil; Ventolin; Proair) 108 (90 Base) MCG/ACT inhaler Inhale 2 (two) puffs by mouth every 6 hours as needed 54 g 04/14/20 24 Active budesonide-formotero l (Symbicort) 160-4.5 MCG/ACT inhalerIndications:C hronic Obstructive Pulmonary Disease Inhale 2 (two) puffs by mouth 2 times daily Reasons: Chronic Obstructive Lung Disease 30.6 g 3 04/14/20 24 Active doxazosin (Cardura) 8 MG tablet Take 1 (one) tablet by mouth once daily 90 tablet 3 04/14/20 24 Active cloNIDine (Catapres) 0.2 MG tablet Take 1 (one) tablet by mouth 2 times daily 180 tablet 3 04/14/20 24 Active traZODone (Desyrel) 50 MG tabletIndications:Ps ychophysiologic insomnia Take 0.5 (one-half) tablet by mouth nightly as needed for Insomnia 45 tablet 3 04/14/20 24 Active sertraline (Zoloft) 50 MG tablet TAKE 1 TABLET BY MOUTH EVERY DAY 100 tablet 1 04/17/20 24 Active albuterol (Proventil;Ventolin) (2.5 MG/3ML) 0.083% nebulizer solutionIndications: Chronic obstructive pulmonary disease, unspecified COPD type (HCC) INHALE THE CONTENTS OF 1 VIAL VIA NEBULIZER EVERY 6 HOURS NEEDED FOR WHEEZING OR FOR SHORTNESS OF BREATH 375 mL 5 07/10/19 25 Active triamcinolone acetonide (Kenalog) 0.1 % creamIndications:Pso riasis APPLY TO AFFECTED AREAS TWICE DAILY FOR PSORIASIS 454 g 5 07/10/19 25 Active sodium chloride (V-R NASAL SPRAY SALINE) 0.65 % nasal spray SPRAY 1 SPRAY INTO INTO EACH NOSTRIL NEEDED FOR DRY NOSE 44 mL 1 07/21/19 25 Active cyclobenzaprine (Flexeril) 5 MG tablet TAKE 1 TABLET BY MOUTH 2 TIMES DAILY NEEDED REASONS: MUSCLE SPASM 50 tablet 2 07/25/19 25 Active cyclobenzaprine (Flexeril) 5 MG tablet TAKE 1 TABLET BY MOUTH 2 TIMES DAILY NEEDED REASONS: MUSCLE SPASM 50 tablet 2 04/14/20 24 025 Discontinued(Re order) sodium chloride ([place]bert; Baby Worthington) 0.65 % nasal spray [place] 1 (one) spray into each nostril as needed for Dry Nose 60 mL 1 04/26/20 24 025 Discontinued Active Problems Problem Noted Date Diagnosed Date History of appendicitis 03/09/2024 Assessment & Plan (03/30/2024 2:49 PM QUILL 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): Status post laparoscopic appendectomy in February,. He still has some pain in the RLQ, but his abdominal examination is otherwise normal. Surgical scars appear to be healing well. Neck pain 01/25/2024 Assessment & Plan (03/30/2024 2:52 PM QUILL 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): Radha reports that he has had an x-ray of the neck which shows severe osteoarthritis. He has been told by a specialist that there is nothing that can be done for this condition. Continue to take Flexeril as needed, though I have warned him that the sedation from the medication can predispose him to falling. Continue to take Tylenol only as needed for pain. He should avoid NSAIDs due to his renal problems. MRSA (methicillin resistant Staphylococcus aureus) infection 01/21/2024 Assessment & Plan (03/30/2024 2:50 PM QUILL 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): Reports that the infection came from the temporary dialysis catheter which was removed and then replaced. He does not appear to be acutely ill today. MRSA bacteremia 01/20/2024 ESRD (end stage renal disease) on dialysis 01/10 Memory problem 11/05/2023 Nausea 11/05/2023 DNR (do not resuscitate) discussion 10/09/2023 Overview (10/09/2023): Full Code. If he were unable to make his own medical decisions, then girlfriend, Radha Lynn, would make decisions for him. Medicare annual wellness visit, subsequent 10/08 Assessment & Plan (10/09/2023 4:05 PM CDT): Questionnaire is completed with patient today. I have strongly encouraged him to generate Advanced Directives documents. Rectal cancer 10/07/2023 Assessment & Plan (03/30/2024 2:50 PM QUILL 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): Continue to follow with oncologist. He is not yet on treatment. Assessment & Plan (10/09/2023 3:59 PM CDT): Lesion just to the left of the anal opening as recurred and was visible on his physical examination. He will continue to follow with oncologist and reports that he will be starting radiation treatments shortly. He has had three prior surgeries to take out the cancerous mass in the past and cannot have any further surgeries. He is not a candidate for chemotherapy due to his debilitated state. End-stage renal disease on hemodialysis 08/29/19 Assessment & Plan (03/30/2024 2:48 PM QUILL 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): He continues to go to hemodialysis on Wed/Wed/Wed. Temporary dialysis catheter is again noted in the right upper chest wall. He does not yet have an AV fistula. Assessment & Plan (10/09/2023 3:52 PM CDT): He continues to go to hemodialysis on Wed/Wed/Wed. Temporary dialysis catheter is noted in the right upper chest wall. Seizure 08/29/2023 Assessment & Plan (10/09/2023 4:01 PM CDT): Radha reports that he was hospitalized in early August with a seizure, but he is presently not an any anti-seizure medications. It is not clear why he is not following with a neurologist. 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 06/12/2021 Assessment & Plan (10/09/2023 4:00 PM CDT): Noted on CT abdomen/pelvis from 06/12/2021. He has no current evidence of having peripheral arterial disease. Smoking cessation is advised. No further work-up is required. Assessment & Plan (06/28/2022 4:05 PM QUILL 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): Noted on CT abdomen/pelvis from 06/12/2021. He has no current evidence of having peripheral arterial disease. Smoking cessation is advised. No further work-up is required. Hypercoagulable state 06/08/2021 Assessment & Plan (06/08/2021 1:24 PM QUILL 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): Patient reports being told during his recent hospitalization that his blood was thick. CBC, prothrombin time, PTT are ordered today. Need for pneumocystis prophylaxis 05/14/2020 Assessment & Plan (06/08/2021 1:19 PM QUILL 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): Continue to take oral Bactrim. Assessment & Plan (05/29/2021 2:58 PM QUILL 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): Continue to take Bactrim. Assessment & Plan (10/25/2020 2:34 PM CDT): CD4 count continues to be well below 200. He must continue to take Bactrim daily. New prescription is sent to his pharmacy today. Assessment & Plan (06/16/2020 3:24 PM QUILL 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): CD4 count is extremely low. He must continue to take Bactrim as prescribed. Assessment & Plan (05/14/2020 3:04 PM QUILL 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): Stay on Bactrim as ordered. Anxiety 01/11/2020 Assessment & Plan (01/11/2020 6:07 PM CDT): Reports that he is chronically anxious and would like to try medical marijuana to see if it would help his symptoms. Tobacco use disorder 01/11/2020 Assessment & Plan (03/30/2024 2:51 PM QUILL 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): Smoking cessation has been encouraged at prior visits. Assessment & Plan (10/09/2023 3:57 PM CDT): Complete smoking cessation is advised. Assessment & Plan (06/28/2022 4:13 PM QUILL 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): Complete cessation of all smoking is encouraged. I have advised him that if he is going to use marijuana, he should try to switch to edible products which are not harmful to the lungs. Assessment & Plan (06/16/2020 3:23 PM QUILL 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): Patient reports today that he has not smoked in close to a year -- though his voice remains moderately hoarse and raspy. Successful smoking cessation is applauded. The dangers of returning to smoking were discussed. Assessment & Plan (01/11/2020 6:09 PM CDT): Smoking cessation was advised today. 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 Parham CXR (08/03/2016) Aortic tortuosity, ectasia Assessment & Plan (01/11/2020 5:59 PM CDT): Noted on chest x-ray dated 08/03/16. No further work-up is required. Psychophysiologic insomnia 03/11/2017 Assessment & Plan (10/09/2023 4:03 PM CDT): Chronic condition for this patient. He continues to smoke marijuana to help him to sleep. Trazodone is prescribed today, but because there is a drug interaction between Prezcobix and Trazodone which causes the serum concentration of Trazodone to go up, he may take on 25 mg po q hs prn insomnia. He desires no further treatment of depression such as anti-depressant medication or counseling. Assessment & Plan (05/29/2021 2:56 PM QUILL 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): Chronic condition for this patient. Not discussed at today's visit. He may take Melatonin as needed. Assessment & Plan (06/16/2020 3:20 PM QUILL 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): Chronic condition for this patient. He takes no prescription medication for this condition. He may take [id number] Melatonin as needed. Overweight(278.02) 10/12/2016 Overview (03/11/2017): IMO Update 02/21/2017 Exact BMI is discussed. I encouraged him to stop smoking marijuana at a prior visit. Medical dangers of obesity are discussed. But overall, I am much more concerned that he continue to avoid smoking cigarettes. Assessment & Plan (06/28/2022 4:11 PM QUILL 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): See exact BMI above. He has lost weight recently. He should focus on maintaining a healthy diet to avoid malnutrition. Assessment & Plan (06/08/2021 1:21 PM QUILL 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): See exact BMI above. He has gained weight recently, and due to recent long hospitalization, I have encouraged him to continue to try to eat well and avoid malnutrition. Assessment & Plan (05/29/2021 2:54 PM QUILL 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): Recent weight loss of 10 pounds is likely due to his acute severe illness. I have encouraged good po intake of food to try to promote healing. Assessment & Plan (03/03/2021 3:56 PM CDT): Exact BMI is discussed. He remains mildly overweight. He does not desire to have a referral to a dedicated weight-loss program at this time. Assessment & Plan (06/16/2020 3:17 PM QUILL 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): Exact BMI is discussed. He remains slightly overweight. Assessment & Plan (01/11/2020 6:05 PM CDT): Exact BMI is discussed. The importance of losing a small amount of weight was discussed. Benign non-nodular prostatic hyperplasia with lower urinary tract symptoms 10/12/2016 Overview (09/10/2017): Noted on renal ultrasound from July,. Digital rectal examination should be completed, but I am deferring this for now due to the presence of multiple anal condyloma. Urinary outlet obstruction could be playing a part in his rising creatinine. Referral to urologist, Dr. Salas, was made at office visit on 10/26/16. Noted on recent renal ultrasound. Reports that he recently saw urologist, Dr. Salas, and was given Boxee. No current complaints of urinary outlet syndrome. Assessment & Plan (05/29/2021 2:55 PM QUILL 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): Noted on recent renal ultrasound. Reports that he recently saw urologist, Dr. Salas, and was given Boxee. No current complaints of urinary outlet syndrome. Assessment & Plan (06/16/2020 3:19 PM QUILL 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): Noted on renal ultrasound done in July,. Reports that he saw urologist, Dr. Salas, in past and was given Boxee. No current complaints of urinary outlet symptoms. Assessment & Plan (01/11/2020 6:00 PM CDT): Noted on a prior renal ultrasound. He has seen urologist, Dr. Salas, in past and was given Boxee, per his report. No current complaints of urinary outlet syndrome. Poor dentition 08/05/2016 Overview (12/10/2016): He knows that he should see a dentist and have multiple teeth pulled. He cannot afford to see a dentist at this time. Daily flossing has been advised at prior visits as he also has evidence of gingivitis. Assessment & Plan (06/28/2022 4:13 PM QUILL 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): He knows that he should see a dentist and have multiple teeth pulled. He cannot afford to see a dentist at this time. Daily flossing has been advised at prior visits as he also has evidence of gingivitis. Assessment & Plan (05/29/2021 2:54 PM QUILL 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): He knows that he should see a dentist and have multiple teeth pulled. Assessment & Plan (06/16/2020 3:16 PM QUILL 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): He knows that he should see a dentist and have multiple teeth pulled. He cannot afford to see a dentist at this time. Daily flossing has been advised at prior visits as he also has evidence of gingivitis. Assessment & Plan (01/11/2020 6:06 PM CDT): He knows that he should see a dentist and have multiple teeth pulled. He cannot afford to see a dentist at this time. Daily flossing has been advised at prior visits as he also has evidence of gingivitis. Oral cavity was not examined today due to Covid precautions. History of positive PPD 07/07/2016 Overview (09/10/2017): Patient erroneously had a PPD placed at his visit on 06/23/16. When I asked him about that at his visit in June,, he reported that he did not remember any swelling or enlargement of the test site. The history of positive PPD may not have been correct. No PPD will be placed in future, however. Assessment & Plan (06/28/2022 4:17 PM QUILL 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): He must never receive another TB skin test. Assessment & Plan (05/29/2021 2:52 PM QUILL 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): He must never receive another TB skin test. Assessment & Plan (03/03/2021 3:59 PM CDT): He must never receive another TB skin test. He has no signs of active TB presently such as cough, hemoptysis or unintentional weight loss. If he ever has a question of active TB in the future, he would require a chest x-ray. Assessment & Plan (06/16/2020 3:16 PM QUILL 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): He must never receive another TB skin test. He has no signs or symptoms of active TB presently such as cough, hemoptysis or unintentional weight loss. Recent lower respiratory infection was felt to be a COPD exacerbation, and he had a chest x- ray done at the Urgent Care center he went to. Assessment & Plan (01/27/2020 1:28 PM CDT): He must never receive another TB skin test. He denies any current cough or hemoptysis. Hypercholesterolemia 06/23/2016 Overview (10/12/2016): Noted in past. Most recent cholesterol panel was done on 06/23/16 and was relatively normal. Assessment & Plan (06/28/2022 4:10 PM QUILL 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): Most recent lipid panel from 06/06/21 showed elevated LDL of 145. He is currently on no medication to lower his cholesterol level. Repeat fasting lipid panel is ordered today. Assessment & Plan (06/08/2021 1:21 PM QUILL 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): Noted on prior blood work. Most recent lipid panel done on 06/14/20 showed normal fractions. Repeat fasting lipid panel is ordered today. Assessment & Plan (05/29/2021 2:50 PM QUILL 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): Most recent lipid panel done on 06/14/20 showed normal fractions. Assessment & Plan (06/16/2020 3:12 PM QUILL 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): Noted with prior blood draws. Most recent fasting lipid panel was done in January, and showed normal results in all fractions. Repeat fasting lipid panel is ordered today. Assessment & Plan (01/11/2020 6:04 PM CDT): Noted in past. Most recent cholesterol panel was done on 01/24/19 and was normal. 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 I have referred the patient to colorectal surgeon, Dr. Yani Prieto, to have these resected. He had an appointment with Dr. Prieto on 10/13/16, but he apparently was unable to make that appointment. I have strongly encouraged him today to follow-up with the specialist as advised. RPR from May, was negative. Assessment & Plan (05/29/2021 2:53 PM QUILL 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): These were noted on his external rectal examination done on 10/12/16. I had referred the patient to colorectal surgeon, Dr. Yani Prieto, to have these resected. He had an appointment with Dr. Prieto on 10/13/16, but he never returned to have examination under anesthesia. I have strongly encouraged him at prior visits to follow-up with the specialist as advised. RPR has been negative. Assessment & Plan (06/16/2020 3:14 PM QUILL 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): These were noted on his external rectal examination done on 10/12/16. I have referred the patient to colorectal surgeon, Dr. Yani Prieto, to have these resected. He had an appointment with Dr. Prieto on 10/13/16, but he never returns as requested for an examination under anesthesia. I strongly encouraged him at his visit in December, to follow-up with Dr. Prieto as advised. RPR from May, was negative. Assessment & Plan (01/11/2020 5:59 PM CDT): These were noted on his external rectal examination done on 10/12/16. I have referred the patient to colorectal surgeon, Dr. Yani Prieto, to have these resected. He has never gone back to see Dr. Prieto, as requested, for an examination under anesthesia. RPR from May, was negative. CKD (chronic kidney disease) stage 3, GFR 30-59 ml/min 06/23/2016 Overview (07/03/2019): 04/25/2019 OV, Josh Weston MD at 09/10/2017 Assessment & Plan (06/28/2022 4:07 PM QUILL 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): Most recent serum creatinine I can see is from 06/06/21 with serum creatinine of 3.22. Estimated GFR at that time was 19 mL/min which would actually make him stage 4 disease. Renal function tests are ordered today. I have reminded him to stay well-hydrated and to never take any NSAIDs such as ibuprofen or Aleve. Continue to take Lasix as shown in medication list for his known peripheral edema. Consider worsening renal function as a cause for increased swelling in the right foot. Assessment & Plan (06/08/2021 1:18 PM QUILL 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): Most recent serum creatinine was 1.46 with estimated GFR of 59 (improved compared to prior) from February,. Repeat renal function tests are ordered today. I have reminded him today that he should be pushing himself to drink lots of water and that he should never take any NSAIDs such as ibuprofen or Aleve. Continue to take Lasix as ordered during recent hospitalization. Radha reports that his peripheral edema has greatly improved over the past week or so. Urinalysis is ordered today. Assessment & Plan (05/29/2021 2:51 PM QUILL 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): Most recent serum creatinine was 1.46 with estimated GFR of 59. He certainly had kidney function blood work drawn during recent hospitalization. Assessment & Plan (03/03/2021 4:01 PM CDT): Repeat BMP was ordered after results of renal function panel from October, were known. He never got the blood work drawn. I have urged him to go to [facility] once to get the testing done. I have advised him at prior visits to avoid dehydration and to never take NSAIDs. Assessment & Plan (10/25/2020 2:33 PM CDT): Most recent serum creatinine from July, had worsened somewhat to 1.57 with estimated GFR of 52 mL/min. He will continue to stay well-hydrated and knows to avoid taking any NSAIDs. Renal function panel is ordered today. Assessment & Plan (08/14/2020 2:15 PM CDT): Most recent serum creatinine from 06/14/20 had improved to 1.30 with estimated GFR of >60. He will continue to stay well-hydrated and knows to avoid taking any NSAIDs. Assessment & Plan (06/16/2020 3:06 PM QUILL 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): Most recent serum creatinine from 05/14/20 was 1.45 with estimated GFR of 59 mL/min. Repeat renal function tests are ordered today. I have reviewed with him that he must continue to push his oral intake of water and never take any NSAIDs such as ibuprofen or aleve. Better control of hypertension, which is noted at today's visit, is a good sign as his renal dysfunction may stem from that. Renal ultrasound from July, showed an enlarged prostate with normal-appearing kidneys. Assessment & Plan (01/27/2020 1:32 PM CDT): Most recent serum creatinine has risen to 1.63 with estimated GFR of 50 mL/min. Genvoya can be taken down to a creatinine clearance of 30. Renal function panel is ordered today. Urinalysis suggests that he might have a UTI, though he denies any symptoms suggestive of this. Clean-catch urine culture is ordered with other labs requested today. If he has a UTI, this will need to be treated. If he does not have a UTI and if his renal function has in fact deteriorated, he will require referral to a clinical engineer. He already knows to push po intake of water and to avoid taking any NSAIDs such as ibuprofen or Aleve. Assessment & Plan (01/11/2020 6:01 PM CDT): Most recent creatinine was more elevated than in past at 1.50 from April,. Repeat renal function tests are ordered today. Patient has been counseled in the past to avoid dehydration and to never take NSAIDs such as ibuprofen or Aleve. Tortuous aorta 06/22/2016 Overview (07/03/2019): 06/11/2017 OVDr. Parham CXR: 08.26.15 Assessment & Plan (01/11/2020 6:06 PM CDT): Noted on chest x-ray from 08/26/15. Peripheral pulsations are intact, and he has no symptoms of PAD. No further work-up is required. Chronic hepatitis C 08/09/2014 Overview (07/03/2019): 04/25/[address] note 08/09/14. Patient has desired no treatment during past visits. Latest hepatitis C viral load done by Dr. Weir in 2009 was undetectable. Hepatitis C antibody test from prior visit was positive and confirmed diagnosis. LFTs from July, were normal. Assessment & Plan (10/09/2023 3:55 PM CDT): Patient has desired no treatment during past visits. He had been on Entecavir in past -- presumably for chronic hepatitis B infection. He can discuss this with the ID physician when he sees him later in September. Assessment & Plan (06/08/2021 1:28 PM QUILL 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): Patient has desired no treatment during past visits. Latest hepatitis C viral load done by Dr. Weir in 2009 was undetectable. Hepatitis C antibody test from 2014 was positive. LFTs from February, were normal. Repeat hepatitis C antibody test with reflex to viral load with next blood draw. Consider checking imaging test of the liver to screen for liver cancer at a future visit. Assessment & Plan (06/16/2020 3:10 PM QUILL 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): Patient has desired no treatment at prior visits. Latest hepatitis C viral load done by Dr. Weir in 2009 was undetectable. Hepatitis C antibody test from 2014 was positive. Repeat hepatitis C antibody test and viral load with next blood draw. LFTs from April, were within normal limits. Consider checking imaging test of the liver to screen for liver cancer at a future visit. Assessment & Plan (01/11/2020 6:00 PM CDT): Patient has desired no treatment during past visits. Latest hepatitis C viral load done by Dr. Weir in 2009 was undetectable. Hepatitis C antibody test from prior visit was positive and confirmed diagnosis. LFTs from July, were normal. HTN (hypertension) 09/02/2012 Assessment & Plan (03/30/2024 2:49 PM QUILL 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): BP is presently well-controlled. Assessment & Plan (10/09/2023 4:08 PM CDT): BP is very poorly controlled presently. Increase dosage of Clonidine from twice daily to three times daily. Continue to take Carvedilol, Doxazosin, Hydralazine, Imdur and Losartan. He will see his clinical engineer next week to discuss further changes in his blood pressure medications. I have asked him or Radha to e-mail me through My Chart in 1 week with some home blood pressure readings. Assessment & Plan (06/28/2022 4:08 PM QUILL 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): Continue to take Norvasc. BP was marginally controlled at today's visit. Assessment & Plan (06/08/2021 1:19 PM QUILL 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): Continue to take Norvasc. BP was well-controlled today. Assessment & Plan (05/29/2021 2:59 PM QUILL 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): Continue to take Norvasc. He reports that his blood pressure was low during his recent hospitalization. Assessment & Plan (03/03/2021 3:56 PM CDT): Blood pressure was extremely elevated today. He admits to non-compliance with his blood pressure medication for the past week. Better compliance with Norvasc is encouraged. Dangers of uncontrolled hypertension were discussed with patient today. Assessment & Plan (10/25/2020 2:31 PM CDT): Diastolic reading was again mildly elevated. I have advised him to completely stop smoking. Continue to exercise regularly with bicycle riding. Continue to take Norvasc at present dose. Assessment & Plan (08/14/2020 2:12 PM CDT): Diastolic reading was just mildly elevated today. Continue to take Norvasc. Try to reduce dietary intake of salt. Successful smoking cessation is again applauded. Assessment & Plan (06/16/2020 3:24 PM QUILL 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): Very well-controlled. Continue to take Norvasc. Successful smoking cessation is applauded. Assessment & Plan (01/27/2020 1:23 PM CDT): Well controlled. Continue to take Norvasc. Assessment & Plan (01/11/2020 6:03 PM CDT): Well controlled with just minor elevation in the diastolic reading today. Continue to take Norvasc. Assessment & Plan (08/02/2019 12:06 PM CDT): Well controlled with just minor elevation in the diastolic reading today. Continue to take Norvasc. COPD (chronic obstructive pulmonary disease) 10/2011 Overview (07/03/2019): 04/25/2019 OV, Dr. Parham Continue to use Albuterol prn; he reports that he uses this occasionally. Smoking cessation is applauded. No wheezing is noted on physical examination today. He shows no difficulty breathing at this time. Continue to take Singulair. He also reports that he may be taking Breo Ellipta. I have asked him to bring in all inhaled medications to his next visit. Assessment & Plan (03/30/2024 2:55 PM QUILL 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): Continue to wear supplemental oxygen. Present oxygen saturation was as low as 81%, but by the end of the visit, it had come up to 88% which is still low. I have offered to send him to the ER for evaluation, but as he is feeling fine, he declines to do so. Continue to take Albuterol as needed. I have sent out prescription for controller medication, Symbicort. Assessment & Plan (10/09/2023 3:54 PM CDT): He should be wearing supplemental oxygen, but it is not one today. Continue to use either Albuterol nebulized solution or Albuterol HFA MDI as needed. Complete smoking cessation is advised. Assessment & Plan (06/28/2022 4:08 PM QUILL 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): Continue to use supplemental oxygen. Continue to use either Albuterol nebulized solution or Albuterol HFA MDI as needed. Complete smoking cessation is advised. Assessment & Plan (06/08/2021 1:18 PM QUILL 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): He reported at his last visit that he was diagnosed with COPD exacerbation in addition to Covid pneumonia during his last hospitalization. His only current inhaled medication is either Albuterol HFA MDI or Albuterol nebulized solution which he uses as needed. Assessment & Plan (05/29/2021 2:49 PM QUILL 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): Recent admission to hospital for COPD exacerbation. He appears moderately short of breath over today's telephone visit. Continue on present inhaled medications. Assessment & Plan (10/25/2020 2:32 PM CDT): Lung examination today was normal with no wheezing and just mild hyperinflation. Continue to take Albuterol MDI as needed for wheezing or shortness of breath. Complete cessation of cigarette smoking is advised. Assessment & Plan (08/14/2020 2:18 PM CDT): Lung examination today was normal with no wheezing and just mild hyperinflation. Patient requests a refill on Albuterol for nebulizer which I have given to him. I have discussed with him today that if he is using a rescue inhaler (or nebulizer) more than twice per week on a regular basis, then we should start him on an inhaled corticosteroid. He will try to pay attention to how often he is requiring the rescue inhaler and let me know about this at his next visit. He is no longer taking Azithromycin nor prednisone; these are removed from his medication list. Assessment & Plan (06/16/2020 3:22 PM QUILL 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): He reports that he was diagnosed as having a COPD exacerbation at his recent Urgent Care visit. He will continue to take Prednisone and has finished a Z-brenda prescription. His Covid test was negative. On today's examination, I detected no wheezing -- just moderate hyperinflation. Assessment & Plan (01/11/2020 6:03 PM CDT): Continue to use Albuterol prn; he uses this occasionally. Smoking cessation is encouaraged. No wheezing is noted on physical examination today, though he does have hyperinflation. He shows no difficulty breathing at this time. AIDS (acquired immune deficiency syndrome) 04/09 Overview (07/03/2019): 04/25/2019 Dr. Dione JESUS Assessment & Plan (03/30/2024 2:46 PM QUILL 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): Continue taking Rukobia, Tivicay, and Prezcobix. He will continue to follow with ID physician at [facility]. As long as his CD4 count is above 200, he will not require prophylactic medication for PCP pneumonia. Assessment & Plan (10/09/2023 3:51 PM CDT): He should be taking Rukobia, Tivicay and Prezcobix. But he needs a prescription for Prezcobix, which is sent to his pharmacy today. He will see ID physician at [facility] later this month, and he will take over writing these prescriptions. Results of recent HIV viral load and CD4 count from [place], 2024 are noted. He still requires taking Bactrim to prevent PCP infection due to low CD4 count. Assessment & Plan (06/28/2022 4:04 PM QUILL 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): He is presently taking Rukobia, Tivicay and Prezcobix. But it is not clear when he has seen the infectious disease specialist at [facility] last. I have recently been refilling his HIV medications. Due to the resistance pattern, I want him to be following with ID. Radha will call the ID physician at [facility] to get a quick appointment. HIV blood work is re-ordered today. Due to his low CD4 count, he must continue to take Bactrim for prophylaxis of PCP pneumonia. Assessment & Plan (06/08/2021 1:13 PM QUILL 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): Due to previous resistance to Genvoya, he continues to take Prezcobix, BID Tivicay, and Epivir as started in April,. Most recent HIV viral load from February, showed that he has become resistant to this regimen. Referral to infectious disease specialists at [facility] has been made, but apparently, they do not accept his insurance. Referral to [facility] will be generated after the results of today's HIV blood work (CD4 count and HIV viral load are re-ordered today) are known. He will need to be seen quickly to have a new HIV regimen put in place, and if HIV viral load is still quite high, he will need to come off of all of his current HIV medications. Dangers of resistant HIV infection were discussed at his last visit. He must stay on Bactrim until his CD4 count is above 200 in order to prevent pneumocystis pneumonia. Assessment & Plan (05/29/2021 2:57 PM QUILL 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): Due to resistance to Genvoya, he continues on Prezcobix, BID Tivicay, and Epivir as started in April,. Repeat HIV viral load from February, showed that he has become resistant to this regimen. Urgent referral to infectious disease at [facility] is made today. I have stressed to patient that he must see them quickly to be evaluated for a new regimen. Dangers of resistant HIV infection were discussed. He must stay on Bactrim until his CD4 count is above 200 in order to prevent pneumocystis pneumonia. Assessment & Plan (03/03/2021 3:54 PM CDT): Due to resistance to Genvoya, he continues on take Prezcobix, bid Tivicay, and Epivir as started in April,. Repeat HIV viral load has already been ordered; he will go to the lab immediately after today's visit to get the blood drawn. He must stay on Bactrim until his CD4 count is above 200 in order to prevent pneumocystis pneumonia. Assessment & Plan (10/25/2020 2:36 PM CDT): Due to resistance to Genvoya, he continues to take Prezcobix, bid Tivicay, and Epivir as started in April,. Repeat HIV viral load has already been ordered; he will go to the lab immediately after today's visit to get the blood drawn. The importance of staying on Bactrim to prevent pneumocystis pneumonia was again discussed today. Prescription for Bactrim is re-sent to his pharmacy. Assessment & Plan (08/14/2020 2:09 PM CDT): Due to resistance to Genvoya, he continues to take Prezcobix, bid Tivicay, and Epivir as started in April,. Repeat HIV blood work is ordered today. The importance of staying on Bactrim to prevent pneumocystis pneumonia was again discussed today. Assessment & Plan (06/16/2020 2:59 PM QUILL 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): He has become resistant to Genvoya. Continue to take Prezcobix, bid Tivicay, and Lamivudine as started at his last visit. The importance of absolute compliance with medication for HIV infection was discussed. Repeat HIV blood work is ordered today. Extremely low CD4 count from last visit was discussed with patient today. The importance of staying on Bactrim to protect against pneumocystis pneumonia was discussed. Assessment & Plan (05/14/2020 3:01 PM QUILL 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): Stay off of Genvoya to which he has become resistant. Continue to take Bactrim to protect against PCP pneumonia. Switch anti-viral regimen to Tivicay (50 mg po bid), Prezcobix, and Epivir. Baseline HIV viral load and CD4 count are ordered today. Return in 4 weeks for repeat HIV blood work. The importance of absolute compliance with medication was discussed. Assessment & Plan (01/27/2020 1:31 PM CDT): Patient is now clearly resistant to his current HIV medications with HIV viral load of over 2,000. Resistance tests are ordered today. However, the resistance test that he needs is test #[id number] at [facility] (which is HIV-1 PhenoSense GT Plus Integrase, and this test is not loaded into our electronic medical record and cannot be ordered. So I have ordered the HIV-1 PhenoSense GT test (#[id number]) as that is the closest one to it. I will have someone from my office call to [facility] to see if they can change this before he goes this coming Wednesday to get the blood drawn. HIV viral load test is repeated as well to make sure there was not a lab error in reporting of the high viral load which signified resistance. HIV trofile test is ordered to see if he is a candidate to take Maraviroc (Selzentry). HIV Archive test is also ordered to make sure that he does not have any old resistances to NRTIs, NNRTIs, or protease inhibitors. Patient states that he will go to [facility] this coming Wednesday, January 31, 2020, to get the blood work drawn. As soon as the blood work is drawn, he will stop taking Genvoya, which is clearly no longer effective at treating his HIV infection. Continue on prophylaxis for PCP pneumonia until his CD4 count rises to above 200. Previous review of blood work results from June 19, 2014. HIV genotype testing showed L10V, M36I, I62I/V mutations. Interpretation is that virus is sensitive to all drugs tested; however, Darunavir (Prezista) is the only protease inhibitor with no mutations detected. Non-nucleosides and nucleosides had no detectable mutations. 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 HIV viral load was 73,550. CD4 count (absolute) was 44. Hepatitis C antibody was positive. RPR negative. HLA B5701 test was negative. Urine for GC/Chlamydia was negative. Urinalysis showed trace protein. Creatinine was 1.44 with estimated GFR of 61. AST 49. ALT 51. Assessment & Plan (01/11/2020 6:10 PM CDT): Continue on Genvoya. I am very concerned that his last HIV viral load test done in April, showed a low level of viremia. I have again encouraged him to keep regular follow-up visits and not to go for long periods of time without being seen for blood work. Risk of developing resistance to medication was discussed. He will continue to take Bactrim daily to protect against PCP. Repeat HIV blood work is ordered today. He states that he will go to [facility] immediately after today's visit to get the blood drawn. Assessment & Plan (08/02/2019 12:07 PM CDT): Continue to take Genvoya. Return in 2 weeks for repeat evaluation. He will require all HIV blood work at that time. I will not order those studies today as patient is acutely ill, and the numbers would not be accurate. He reports that he has been completely compliant with Bactrim. I have emphasized the importance of taking this as it will prevent him from developing PCP pneumonia. Chest x-ray is ordered today, nonetheless. History of hepatitis C 04/09/2009 Overview (09/10/2017): Patient has desired no treatment during past visits. Latest hepatitis C viral load done by Dr. Weir in 2009 was undetectable. Hepatitis C antibody test from prior visit was positive and confirmed diagnosis. LFTs from July, were normal. Assessment & Plan (05/29/2021 2:58 PM QUILL 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): Patient has desired no treatment during past visits. Latest hepatitis C viral load done by Dr. Weir in 2009 was undetectable. Hepatitis C antibody test from prior visit was positive and confirmed diagnosis. LFTs from February, were normal. Psoriasis 04/09/2009 Overview (09/10/2017): Small plaques noted on posterior elbows. He is on no medication for this condition at this time. Patient has scaly rash at times. Prescription for Kenalog ointment is given for patient to use as needed. Assessment & Plan (03/30/2024 2:53 PM QUILL 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): Patient requests that we change his triamcinolone ointment to cream. New prescription for cream is sent to pharmacy. Assessment & Plan (06/28/2022 4:14 PM QUILL 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): Patient has a scaly rash at times -- not noted today. He uses Kenalog ointment as needed to treat the rash. Assessment & Plan (06/16/2020 3:21 PM QUILL 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): Patient has a scaly rash at times -- not noted today. He uses Kenalog ointment as needed. Assessment & Plan (05/14/2020 3:03 PM QUILL 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): Patient has scaly rash at times. Prescription for Kenalog ointment is given for patient to use as needed. HIV (human immunodeficiency virus infection) Overview (10/06/2023): 04/25/2019 OV, Dr. Parham Last Assessment & Plan: Due to previous resistance to Genvoya, he continues to take Prezcobix, BID Tivicay, and Epivir as started in April,. Most recent HIV viral load from February, showed that he has become resistant to this regimen. Referral to infectious disease specialists at [facility] has been made, but apparently, they do not accept his insurance. Referral to [facility] will be generated after the results of today's HIV blood work (CD4 count and HIV viral load are re-ordered today) are known. He will need to be seen quickly to have a new HIV regimen put in place, and if HIV viral load is still quite high, he will need to come off of all of his current HIV medications. Dangers of resistant HIV infection were discussed at his last visit. He must stay on Bactrim until his CD4 count is above 200 in order to prevent pneumocystis pneumonia. Last Assessment & Plan: Mr. Salcedo is a 66 year old male living with HIV who is heavily treatment experienced with resistance to NRTIs and INSTIs. We recently restarted him on treatment with Fostemsavir, Prezcobix, and Tivicay BID. He reports good adherence to this. He is feeling well. He is gaining weight. Viral load today suggests the meds are active against his virus with good viral response. Plan: - Doing well on Meds, viral load continues to come down, though much more slowly - Cont Fostemsavir BID +Tivicay BID + Prezcobix - Discussed adherence at length - Cont bactrim for PJP prophylaxis - RTC in 3 months Resolved Problems Problem Noted Date Diagnosed Date Resolved Date Falls 08/29/2023 03/30/2024 Hyperkalemia 08/29/2023 10/09/2023 Syncope 08/29/2023 10/09/2023 Urinary retention 08/29/2023 10/07/2023 Pain in shoulder 06/24/2023 10/09/2023 Right foot pain 06/28/2022 10/09/2023 Assessment & Plan (06/28/2022 4:11 PM QUILL 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): And swelling over the dorsum of the mid-foot. Patient is concerned that he has gout, but there is no physical examination evidence of gout. There is no erythema or pain over any joints. X-ray of the foot is ordered today. Blood work is sent to rule out worsening renal disease. Uric acid level is ordered to rule out evidence of elevated uric acid level and possible gout. Continue to take Furosemide as shown in his medication list. Screening for lung cancer 06/28/2022 Assessment & Plan (06/28/2022 4:18 PM QUILL 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): Consider ordering a screening lung CT scan in the future if his medical problems stabilize. Smoking cessation is advised. Need for vaccination 06/28/2022 024 Assessment & Plan (06/28/2022 4:19 PM QUILL 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): Covid booster shot is given today. Need for vaccination against Streptococcus pneumoniae 06/28/2022 10/09/2023 Assessment & Plan (06/28/2022 4:15 PM QUILL 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): PCV20 vaccination is given today. Peripheral edema 06/08/2021 10/09/2023 Assessment & Plan (06/28/2022 4:12 PM QUILL 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): Continue to take Lasix. Continue to follow a low-salt diet. CMP is ordered today. Assessment & Plan (06/08/2021 1:23 PM QUILL 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): Now on Lasix as started by hospital team. Radha reports that the edema has greatly improved over the past week or so. He has no physical examination signs of heart failure such as crackles in the lungs or JVD/hepatojugular reflux. I have emphasized to him today the importance of following a low-salt diet. CMP is ordered today. Open wound of left hand without foreign body 06/24/2022 Assessment & Plan (06/08/2021 1:29 PM QUILL 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): It does not appear infected, but it has remained open now for some weeks. I have advised him to apply aloe vera gel to the wound to promote healing. Repeat examination of the wound at a future visit. Pneumonia due to COVID-19 virus 05/29/2021 06/24/2022 Assessment & Plan (06/08/2021 1:25 PM QUILL 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): Recent long hospitalization at [facility] in [place], [place]. I have no records from said hospitalization. He continues to use home oxygen. He appears mildly dyspneic at rest, though his lung examination is presently normal. Pulse oximetry on portable oxygen was acceptable today. Consider referral to grocery clerk marking at a future visit. Home health referral is made today to see if they can get him support services to keep him safely at home. Radha is afraid to leave him alone now due to his debilitated state. She needs to be able to leave the house at least sometimes in order to work. Home health aide, physical therapy, OT, could all be helpful to keeping the patient at home safely. Assessment & Plan (05/29/2021 2:48 PM QUILL 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): Recent long hospitalization at [facility] in [place], [place]. He is now on nasal cannula oxygen at 2 liters. I have asked him to come in to see me for an in-person visit to better evaluate his current health status. Olecranon bursitis of right elbow 03/03/2021 05/29/2021 Assessment & Plan (03/03/2021 4:02 PM CDT): He has mild swelling of the right posterior elbow. This requires no treatment at this time. He may apply ice as needed. I have reviewed with him today that he should avoid taking any NSAIDs, given his history of elevated serum creatinine. Screening for colon cancer 03/03/2021 0 10/09/2023 Assessment & Plan (06/28/2022 4:17 PM QUILL 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): Patient elects to defer any screening for colon cancer at this time as he has so many other medical problems. Consider giving him a FIT kit at a future visit if his health problems stabilize. Assessment & Plan (03/03/2021 4:00 PM CDT): Patient does not wish to get a screening colonoscopy at this time, but he does agree to complete a fecal occult blood card kit which is dispensed to him today. Suspected UTI 01/27/2020 06/14/2020 Assessment & Plan (01/27/2020 1:28 PM CDT): Suggested by recent urinalysis findings. Clean-catch urine culture is ordered today. Patient will give a urine sample when he goes to the lab. Treat UTI if present. Screening for prostate cancer 01/27/2020 10/09/2023 Assessment & Plan (06/28/2022 4:14 PM QUILL 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): PSA blood test is ordered today. Assessment & Plan (03/03/2021 3:59 PM CDT): PSA blood test is ordered today. Assessment & Plan (01/27/2020 1:28 PM CDT): PSA blood test is ordered today. Medical marijuana use 01/11/20202021 Assessment & Plan (01/11/2020 6:09 PM CDT): Patient certification form is filled out. AIDS is the underlying illness that qualifies him. Possible dangers of medical marijuana use were discussed. These include but are not limited to weight gain, addiction, falls, auto accidents, personality changes, lung disease (if he smokes it). I also discussed that marijuana can be harmful to fetuses or infants that are exposed in utero or through breast feeding. Patient expressed understanding of these things and still wanted to pursue use of marijuana. Medication monitoring encounter 01/11/2020 10/09/2023 Assessment & Plan (06/28/2022 4:16 PM QUILL 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): CMP is ordered today. Assessment & Plan (06/08/2021 1:29 PM QUILL 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): CMP is ordered today. Assessment & Plan (08/14/2020 2:17 PM CDT): CMP is ordered today. Assessment & Plan (06/16/2020 3:25 PM QUILL 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): CMP is ordered today. Assessment & Plan (05/14/2020 3:04 PM QUILL 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): CMP is ordered today. Assessment & Plan (01/11/2020 6:09 PM CDT): CMP is ordered today. Screening examination for ST D (sexually transmitted disease) 01/11/2020 10/09/2023 Assessment & Plan (06/28/2022 4:15 PM QUILL 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): RPR and urine for GC/Chlamydia are ordered today. Assessment & Plan (01/11/2020 6:10 PM CDT): Patient is sexually active with a condom. RPR and urine for GC/Chlamydia are ordered today. COPD exacerbation 08/02/2019 01/11/2020 Assessment & Plan (08/02/2019 12:09 PM CDT): Diffuse wheezing and rhonchi noted on physical examination. Chest x-ray is ordered today. He will get this immediately after the visit. Treat with Prednisone 20 mg po bid x 7 days. Start antibiotic with Z-brenda, #1, take as directed. I have directed him to stop smoking marijuana which is likely irritating his lungs. Continue to use Albuterol (both the MDI and nebulized treatments) as needed. I do not think he needs to be using oxygen at this time, though he has been treating himself with his 's home oxygen which he states makes him feel better. Chronic allergic rhinitis 01/22/2019 Erectile dysfunction 10/14/2018 020 Grief reaction 06/19/2018 01/20/2019 Elevated PSA 10/26/2016 01/11/2020 Overview (09/10/2017): Reports that he recently saw urologist, Dr. Salas, and was given good bill of health. Acute idiopathic gout of left foot 10/12/2016 06/11/2017 Overview (10/26/2016): Possible diagnosis to explain the swelling at the base of the left great toe which was noted at visit from 10/12/16. Uric acid level at that visit was reassuring at 6.2. Low uric acid diet was explained in detail at his 10/12/16 visit. He must not take any ibuprofen -- even if he has a gout exacerbation due to problems with his kidneys. Avoid taking thiazide diuretics in future. Acute renal failure 10/12/2016 06/11/19 18 Abscess of face 06/23/2016 08/05/2016 Oral candidiasis 06/23/2016 09/10/2017 Overview (12/10/2016): Resolved. Continue to take Diflucan daily for prophylaxis of fungal opportunistic infections until CD4 count rises to an acceptable level. Smoking 06/23/2016 12/10/2016 Overview (10/26/2016): Patient has successfully quit smoking since July,. Hx of noncompliance with med ical treatment, presenting hazards to health 06/23/2016 06/19/2018 AIDS 08/09/2014 08/22/2014 CKD (chronic kidney disease) stage 3, GFR 30-59 ml/min 08/09/2014 06/22/2016 Overview (08/22/2014): GFR's for normal for Lumbar spondylosis 10/27/2010 7 Hyperlipidemia 04/09/2009 06/23/2016 Essential hypertension 04/09/200906/22 Overview (02/21/2015): Encounters Date Type Department Care Team Description 07/24/2024 Refill [facility] Internal Medicine [address] [place] [address] Josh Parham MD Refill Request 07/22/2024 Refill [facility] Internal Medicine [address] [place] [address] [address] [place] [address] Josh Parham MD MEDICATION REFILL 07/17/2024 Refill [facility] Internal Medicine [address] [place] [address] [address] [place] [address] Josh Parham MD Refill Request 07/07/2024 Refill [facility] Internal Medicine [address] [place] [address] [address] [place] [address] Josh Parham MD Refill Request from Last 3 Months Immunizations Name Administration Dates Next Due COVID PFIZER 12+YR 30MCG/0.3mL 02/16/2023 COVID PFIZER BIVALENT 12Y+ 30mcg/0.3ML 3 Covid Pfizer primary Monoval ent 12+ yr 0.3ml 07/07/2021 Covid Pfizer primary monoval ent 12+ yr 0.3mL Purple cap 06/06/2021 HepB Unspecified formulation 11/27/2011,10/28/19 12,05/27/2011 INFLUENZA VACCINE 02/23/2024, 3,02/19/2020,02/18,02/11/2011 INFLUENZA VACCINE, ADJUVANTE D, QUADR. (FLUAD QUADRIVALENT; 65Y+) (AIIV4) 05/23/2022,03/03/2021 INFLUENZA VACCINE, HIGH-DOSE , QUADR. (FLUZONE HIGH-DOSE QUADRIVALENT; 65Y+), 0.7 ML (HD-IIV4) 02/16/2023 INFLUENZA VACCINE, QUADR. (F LUZONE; FLULAVAL; FLUARIX; AFLURIA QUADRIVALENT; 6MO+), 0.5 ML (IIV4) 01/28/2017,06/23/2016,06/19/2014 MENINGOCOCCAL CONJUGATE (MCV4P) 10/14/2018,06/16 PNEUMOCOCCAL PCV20 CONJ VAC IM 02/16/2023,2022 PNEUMOCOCCAL PPSV23 06/23/2016,05/24/2010 Pneumococcal Pcv13 Conj 06/19/2014 RSV ABRYSVO PREG OR 60y+ 0.5mL 02/29/2024 RSV AREXVY 60YR+ 0.5ML 02/29/2024 TD, HISTORIC VACCINE 03/24/2010 TETANUS 03/24/2010 Zoster Hzv Vacc Recombinant Inj Im 02/19/2020 iNFLUENZA VACCINE, RECOM-LEVY, QUADR. (FLUBLOCK QUADRIVALENT; 18Y+) (RIV4) 04/25/2019,06/16/2018 Family History Medical History Relation Name Comments None Known Father did not know fa ther Cancer Sister Breast Cancer - Other Sister Relation Name Status Comments Father Mother Alive Sister Social History Tobacco Use Types Packs/Day Years Used Date Smoking Tobacco: Former Cigarettes 1 31 0 08/22/1985 - 08/22/2016 Smokeless Tobacco: Never Tobacco Cessation:Counseling Given: Yes Alcohol Use Standard Drinks/Week Comments No 0 (1 standard drink = 0.6 oz pur e alcohol) PHQ-2 Answer Date Recorded Patient Health Questionnaire-2 Score 0 03/30/2024 Sex and Gender Information Value Date Recorded Sex Assigned at Male 07/03/2021 7:30 AM QUILL 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 Gender Identity Male 07/03/2021 7:30 AM QUILL 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 Sexual Orientation Not on file Last Filed Vital Signs Vital Sign Reading Time Taken Comments Blood Pressure 90/50 03/30/2024 1:24 PM QUILL 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 Pulse 64 03/30/2024 1:24 PM QUILL 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 Temperature 36.1 C (97 F) 03/30/2024 1:24 PM QUILL 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 Respiratory Rate 18 03/30/2024 1:24 PM QUILL 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 Oxygen Saturation 88% 03/30/2024 2:01 PM QUILL 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 Inhaled Oxygen Concentration - - Weight 89.4 kg (197 lb) 03/30/2024 1:24 PM QUILL 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 Height 188 cm (6' 2 ) 03/30/2024 1:24 PM QUILL 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 Body Mass Index 25.29 03/30/2024 1:24 PM QUILL 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 Plan of Treatment Upcoming Encounters Date Type Department Care Team (Late st Contact Info) Description 10/03/2024 1:30 PM CDT Office Visit [facility] - Internal Medicine [address] [facility] [address] [place] [address] [place] [address] [place] [address] [address] [place] [address] Health Maintenance Due Date Last Done Comments COLOGUARD (AGES 45-75) - COLON CA SCREENING 1954 COLON MONITORING 1954 COLONOSCOPY - COLON CA SCREENING 1954 CT COLONOGRAPHY - COLON CA SCREENING 1954 Colorectal Cancer Screening 1954 FIT - COLON CA SCREENING 1954 FLEX SIG - COLON CA SCREENING 1954 LUNG CANCER SCREENING 2004 AAA SCREENING 2019 DTAP/TDAP/TD VACCINES (3 - Td or Tdap) 03/24/2020 03/24/2010, 03/24/2010 ZOSTER VACCINE (2 of 2) 04/15/2020 02/19/2020 PROSTATE CA SCREENING 06/24/2023 06/24/2022 , 03/04/2021, 02/08/2020, Additional history exists MENINGOCOCCAL GROUPS A/C/Y/W VACCINE (3 - Risk 2-dose series) 10/15/2023 10/14/2018, 06/16/2018 COVID-19 VACCINE ( season) 2024 02/16/2023, 06/24/2022, 07/07/2021, Additional history exists DEPRESSION SCREENING 05/24/2024 09/07/2023, 06/24/2022, 06/06/2021 MEDICARE AWV CALENDAR YEAR 2024 10/07/2023, 03/20/2021, 01/19/2020, Additional history exists SCREENING FOR DIABETES 06/24/2025 , 06/06/2021, 03/20/2021, Additional history exists LIPID TESTING 06/24/2027 06/24/2022, 05/24, 06/14/2020, Additional history exists HEPATITIS B VACCINE Discontinued 11/27/2011, 10/28/2011, 05/27/2011 PNEUMOCOCCAL VACCINE 50+ Completed 023, 06/24/2022, 06/23/2016, Additional history exists HEPATITIS C SCREENING Completed 01/21/2024 , 01/21/2024, 11/02/2023, Additional history exists INFLUENZA VACCINE Completed 02/23/2024, , 02/16/2023, Additional history exists Respiratory Syncytial Virus (RSV) Vaccine Pt: or over 60 yrs Completed 02/29/2024, 02/29/2024 HIB VACCINE Aged Out No longer eligi ble based on patient's age to complete this topic HPV VACCINE Aged Out No longer eligi ble based on patient's age to complete this topic MENINGOCOCCAL (Group B) VACCINE SHARED DECISION-MAKING Aged Out No longer eligible based on patient's age to complete this topic Procedures Procedure Name Priority Date/Time Associated Diagnosis Comments COMPREHENSIVE METABOLIC PANEL Routine 06/24/2022 12:29 PM QUILL 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 Stage 3a chronic kidney disease Medication monitoring encounter LIPID PROFILE Routine 06/24/2022 12:29 PM QUILL 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 Hypercholesterolem ia PROSTATE SPECIFIC ANTIGEN SCREEN Routine 06/24/2022 12:29 PM QUILL 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 Screening for prostate cancer HEPATITIS C ANTIBODY Routine 06/19/2014 3:32 PM QUILL 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 History of hepatitis C from Last 3 Months or Most Recently Relevant to Health Maintenance Results * (ABNORMAL) COMPREHENSIVE METABOLIC PANEL (06/24/2022 12:29 PM QUILL 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) Glucose 83 70 - 105 mg/dL [facility] INSURANCE BILL BUN 36(H) 8.4 - 25.7 mg/dL [facility] INSURANCE BILL Creatinine 3.52(H) 0.72 - 1.25 mg/dL [facility] INSURANCE BILL eGFR by CKD-EPI 18(L) >=90 mL/min/1.7 3 m2 [facility] INSURANCE BILL Sodium 144 136 - 145 mmol/L [facility] INSURANCE BILL Potassium 4.9 3.5 - 5.1 mmol/L [facility] INSURANCE BILL Chloride 108(H) 98 - 107 mmol/L [facility] INSURANCE BILL CO2 22(L) 23 - 31 mmol/L [facility] INSURANCE BILL Calcium 8.7 8.4 - 10.4 mg/dL [facility] INSURANCE BILL Protein Total 8.2 6.4 - 8.3 gm/dL [facility] INSURANCE BILL Albumin 3.8 3.2 - 4.6 gm/dL [facility] INSURANCE BILL Bilirubin Total 0.5 0.2 - 1.2 mg/dL [facility] INSURANCE BILL Alkaline Phosphatase 80 40 - 150 U/L [facility] INSURANCE BILL AST 27 5 - 34 U/L [facility] INSURANCE BILL ALT 35 0 - 61 U/L [facility] INSURANCE BILL Comment:FASTING Blood BLOOD SPECIMEN / Unknown 06/24/2022 12:29 PM QUILL 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 06/24/2022 Narrative Resulting Agency Comment Lab Testing performed at: [address] [phone] Josh Parham MD LAB - CHEMISTRY BLANK WEBB [facility] Organization Address City/State/ZIP Co de Phone Number [facility] INSURANCE BILL [address] [place] [address] * PROSTATE SPECIFIC ANTIGEN SCREEN (06/24/2022 12:29 PM QUILL 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) PSA 3.11 0.00 - 4.00 ng/mL [facility] INSURANCE BILL Comment: PSA values will vary depending on testing procedure used. R esults are not comparable across different methods. PSA values obtained by FASTING Blood BLOOD SPECIMEN / Unknown 06/24/2022 12:29 PM QUILL 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 06/24/2022 Narrative Resulting Agency Comment Lab Testing performed at: [address] [id number] Josh Parham MD LAB - CHEMISTRY BLANK WEBB Performing Organization Address [facility] de Phone Number [facility] INSURANCE BILL [address] [place] [address] * LIPID PROFILE (06/24/2022 12:29 PM QUILL 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) Cholesterol 199 <200 mg/dL [facility] INSURANCE BILL Triglycerides 80 <150 mg/dL [facility] INSURANCE BILL HDL Cholesterol 54 >40 mg/dL [facility] INSURANCE BILL VLDL Calculated 16 <=30 mg/dL [facility] INSURANCE BILL LDL Calculated 129 <130 mg/dL [facility] INSURANCE BILL Comment:FASTING Blood BLOOD SPECIMEN / Unknown 06/24/2022 12:29 PM QUILL 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 06/24/2022 Narrative Resulting Agency Comment Lab Testing performed at: [address] [id number] Josh Parham MD LAB - CHEMISTRY BLANK WEBB Performing Organization Address [facility] de Phone Number [facility] INSURANCE BILL [address] [place] [address] * (ABNORMAL) HEPATITIS C ANTIBODY (06/19/2014 3:32 PM QUILL 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) Hepatitis C Antibody 3.7(H) 0.0 - 0.9 s/co ratio [facility] INSURANCE BILL Comment: . Negative: < 0.8 Indeterminate: 0.8 - 0.9 Positive: > 0.9 . In order to reduce the incidence of a false positive result, the CDC recommends that all s/co ratios between 1.0 and 10.9 be confirmed by a more specific supplemental or PCR testing. [facility] Ab w/Reflex to Verification test #[id number]. Blood specimen (specimen) BLOOD SPECIMEN / Unknown 06/19/2014 3:32 PM QUILL 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 06/19/2014 6:01 PM QUILL 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 Narrative Resulting Agency Comment [facility] [address] [facility] [phone] Josh Parham MD LAB - CHEMISTRY BLANK WEBB [facility] INSURANCE BILL from Last 3 Months or Most Recently Relevant to Health Maintenance Care Teams Director Selection And Administration Relationship Specialty Start Date End Date Josh Parham MD PCP - General Internal Medicine 05/27/11 Josh Parham MD [address] [address] PCP - [facility] 03/24/24 Care, [facility] 12/23/22
--- OUTSIDE RECORDS SUMMARY | 2024-08-19 21:16 | XMS_ITS | Encounter Summary ---
Author Organization [facility] Address [address] [facility] [place] [address] Care Team Providers Care Reducer Name Role Phone Josh Parham MD Primary Care Provider Josh Parham MD Unavailable [phone] Care, [facility] Unavailable [phone] Josh Parham MD Unavailable [phone] Reason for Visit * Reason Onset Date Comments MEDICATION REFILL 03/24/2024 Medication Issue 03/24/2024 Update 03/24/2024 Change Pharmacy & Add Med Not on List Encounter Details Date Type Department Care Team (Late st Contact Info) Description 03/24/2024 Refill [facility] - Internal Medicine [facility] [address] Josh Parham MD [address] [place] [place] [address] MEDICATION REFILL; Medication Issue; Update (Change Pharmacy & Add Med Not on List) Social History Tobacco Use Types Packs/Day Years Used Date Smoking Tobacco: Former Cigarettes 1 31 0 08/22/1985 - 08/22/2016 Smokeless Tobacco: Never Alcohol Use Standard Drinks/Week Comments No 0 (1 standard drink = 0.6 oz pur e alcohol) PHQ-2 Answer Date Recorded Patient Health Questionnaire-2 Score 0 03/23/2024 Sex and Gender Information Value Date Recorded Sex Assigned at Male 07/03/2021 7:30 AM AUTO TESTER Gender Identity Male 07/03/2021 7:30 AM AUTO TESTER Sexual Orientation Not on file documented as of this encounter Miscellaneous Notes * Telephone Encounter - Breanna Ceja - 03/27/2024 12:02 PM AUTO TESTER Patient is wanting have all medication including one not on his current medication list as stated below in original request to be sent to a different pharmacy. Patient requesting Triamcinolone acetonide 0.1 CREAM instead of OINTMENT; patient uses the cream during the winter months. Patient girlfriend Deanne stated Dr. Parham has filled the cream for him in the past, ointment is for summer, and cream is for winter. HE DOES NOT WANT THE OINTMENT Wanting this medication and the other 3 to be sent to [facility] in [facility], included in this encounter and not the [facility], send GENEVIEVE due to he is out of [facility]. Requested Prescriptions Pending Prescriptions Disp Refills albuterol (Proventil;Ventolin) (2.5 MG/3ML) 0.083% nebulizer solution 100 mL 0 Sig: Inhale 2.5 (two and one-half) mg by mouth every 6 hours as needed for Shortness of Breath or Wheezing Reasons: Chronic Obstructive Lung Disease albuterol HFA (Proventil; Ventolin; Proair) 108 (90 Base) MCG/ACT inhaler 18 g 1 Sig: Inhale 2 (two) puffs by mouth every 6 hours as needed cyclobenzaprine (Flexeril) 5 MG tablet 20 tablet 0 Sig: TAKE 1 TABLET BY MOUTH 2 TIMES DAILY NEEDED REASONS: MUSCLE SPASM Refused Prescriptions Disp Refills cyclobenzaprine (Flexeril) 5 MG tablet 20 tablet 0 Sig: TAKE 1 TABLET BY MOUTH 2 TIMES DAILY NEEDED REASONS: MUSCLE SPASM Refused By: BRAYAN OROZCO Reason for Refusal: Request already responded to by other means (i.e. elec, phone or fax) triamcinolone acetonide (Kenalog) 0.1 % ointment 454 g 0 Sig: Apply to affected area 2 times daily as needed (rash) Reasons: Psoriasis Refused By: BRAYAN OROZCO Reason for Refusal: Request already responded to by other means (i.e. elec, phone or fax) Person calling for the refill: Patient girlfriend Deanne Last office visit 10/07/23 Next Appointment scheduled: 03/30/2024 Last Refill for this medication Albuterol nebulizer Albuterol inhaler Flexeril, sign GENEVIEVE patient is out All 3 last filled 03/24/24 patient has not received need script changed to different pharmacy Does patient have any new allergies since last office visit? No Was the pharmacy verified? [facility] [place] If this is a controlled substance was the Last 4 of SSN verified? NOT APPLICABLE Did you notify caller it would take 24-48 hours for the refill to be completed? YES CALL DEANNE patient girlfriend/ caregiver with an update once medication has been updated and sent to correct pharmacy TESTER * Telephone Encounter - Nory Zavala - 03/24/2024 9:28 AM CDT Requested Prescriptions Pending Prescriptions Disp Refills cyclobenzaprine (Flexeril) 5 MG tablet 20 tablet 0 Sig: TAKE 1 TABLET BY MOUTH 2 TIMES DAILY NEEDED REASONS: MUSCLE SPASM triamcinolone acetonide (Kenalog) 0.1 % ointment 454 g 0 Sig: Apply to affected area 2 times daily as needed (rash) Reasons: Psoriasis Person calling for the refill: radha Garcia Last office visit 10/07/23 Next Appointment scheduled: 03/30/2024 Last Refill for this medication Flexeril-03/10/24, Triamcinolone 01/27/24 Does patient have any new allergies since last office visit? Unknown Was the pharmacy verified? Yes If this is a controlled substance was the Last 4 of SSN verified? NOT APPLICABLE Did you notify caller it would take 24-48 hours for the refill to be completed? NOT APPLICABLE Patient requesting Triamcinolone acetonide 0.1 CREAM instead of OINTMENT; patient uses the cream during the winter months. documented in this encounter Plan of Treatment Upcoming Encounters Date Type Department Care Team (Late st Contact Info) Description 10/03/2024 1:30 PM CDT Office Visit [facility] - Internal Medicine [address] [facility] [address] [place] [address] Josh Parham MD [address] [address] documented as of this encounter Visit Diagnoses Diagnosis Psoriasis Other psoriasis Chronic obstructive pulmonary disease, unspecified COPD type (HCC) documented in this encounter Care Teams Reducer Relationship Specialty Start Date End Date Josh Parham MD PCP - General Internal Medicine 05/27/11 Josh Parham MD [address] [address] PCP - Attributed[facility] [place] 10/22/22 [place] [address] [place] [address] PCP - [facility] 03/24/24 Care, [facility] 12/23/22 documented as of this encounter
--- OUTSIDE RECORDS SUMMARY | 2024-08-19 21:16 | XMS_ITS | Referral Summary ---
Author Organization [facility] [place] [address] Address [address] [place] [address] Care Team Providers Care Vascular Technician Name Role Phone Matteo Brooks MD Unavailable [phone] Gerson Keith MD Unavailable Cassie Márquez MD Unavailable Beatriz TO MD, Seth Vasquez Unavailable Beatriz TO MD, Seth Vasquez Unavailable [phone] David Gorman MD Unavailable [phone] Blayne Sepulveda MD Unavailable Gerson Forrester DO Unavailable [phone] Idris Sanchez MD Primary Care Provi simba Encounters Date Type Department Care Team Description 08/17/2024 1:47 PM CDT - 08/17/2024 11:59 PM CDT Hospital Encounter [facility] [address] [place] [address] Squamous cell carcinoma of anal margin Discharge Disposition: Discharge to home or self care 08/15/2024 3:30 PM CDT Office Visit [facility] Primary Care at [address] [place] [address] Idris Sanchez MD Essential (primary) hypertension (Primary Dx); ESRD (end stage renal disease) on dialysis (HCC); Chronic hepatitis B (HCC); Chronic hepatitis C without hepatic coma (HCC); Muscle spasms of neck; Neck pain; Pulmonary emphysema, unspecified emphysema type (HCC) 08/02/2024 Telephone [facility] at [facility] [address] [place] [address] Jaskaran Aguirre MD Clearances Prior to AVF vs AVG Creation 08/01/2024 Results Follow-Up [facility] Convenient Care at [address] [phone] Laina Yancey PA 08/01/2024 9:45 AM CDT Ancillary Procedure [facility] Imaging at [address] [phone] Elevated blood pressure reading in office with diagnosis of hypertension; COPD with acute exacerbation (HCC) 07/29/2024 Results Follow-Up [facility] Convenient Care at [address] [phone] Merrick Aguirre NP 07/28/2024 6:01 PM [employer]HALT TAMPING 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 - 07/28/2024 11:59 PM ASPHALT TAMPING 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 Hospital Encounter [address] [address] Elevated blood pressure reading in office with diagnosis of hypertension Discharge Disposition: Discharge to home or self care 07/28/2024 5:15 PM ASPHALT TAMPING 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 Office Visit [facility] Convenient Care at [address] [phone] Merrick Aguirre NP COPD with acute exacerbation (HCC) (Primary Dx); Elevated blood pressure reading in office with diagnosis of hypertension 07/26/2024 Telephone [facility] Nephrology at [address] [place] [address] Gerson Keith MD 07/21/2024 Telephone [facility] Gastroenterology at [address] [place] [phone] Gerson Keith MD 07/03/2024 Social Work [facility] [address] [facility] [address] [place] [phone] Chaitanyacory MartinaMAGDALENA 07/03/2024 Orders Only [facility] at [address] [place] [address] Domi King NP ESRD (end stage renal disease) on dialysis (HCC) (Primary Dx); Essential (primary) hypertension; Abnormal EKG 07/03/2024 Orders Only [facility] at [address] [place] [phone] Jaskaran Aguirre MD Pre-operative exam (Primary Dx); End stage renal disease (HCC) 06/27/2024 3:37 PM ASPHALT TAMPING 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 - 06/27/2024 11:59 PM ASPHALT TAMPING 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 Hospital Encounter [address] [address] Currently asymptomatic HIV infection, with history of HIV-related illness (HCC) Discharge Disposition: Discharge to home or self care 06/27/2024 Telephone [facility] Infectious Diseases [address] [place] [phone] Issac Norris danilo Comirnaty vaccine administered 06/27/2024 3:40 PM ASPHALT TAMPING 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 Lab [facility] Infectious Diseases [address] [place] [phone] 06/27/2024 3:00 PM ASPHALT TAMPING 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 Office Visit [facility] Infectious Diseases [address] [place] [phone] Bhavesh Salazar MD Currently asymptomatic HIV infection, with history of HIV-related illness (HCC) (Primary Dx); Chronic hepatitis B (HCC); Healthcare maintenance 06/02/2024 Orders Only [facility] Infectious Diseases [address] [place] [address] [address] [place] [phone] Bhavesh Salazar MD from Last 3 Months Allergies No known active allergies Medications albuterol HFA (PROVENTIL HFA,VENTOLIN HFA,PROAIR HFA) 90 mcg/actuation inhaler INHALE 2 PUFFS BY MOUTH EVERY 6 HOURS NEEDED FOR WHEEZING 6.7 g 1 04/23/20 22 Active calcium acetate,phosphat bind, (PHOSLO) 667 mg capsule TAKE 1 CAPSULE BY MOUTH 3 TIMES A DAY WITH MEALS 04/08/20 23 Active cholecalciferol (VITAMIN D-3) 5,000 unit capsule Take 1 capsule (5,000 Units total) by mouth daily 90 capsule 3 09/06/19 24 2024 Active folic acid (FOLVITE) 1 mg tablet Take 1 tablet (1 mg total) by mouth daily 90 tablet 3 09/06/19 24 2024 Active traZODone (DESYREL) 50 mg tablet Take 0.5 tablets (25 mg total) by mouth nightly as needed 10/08/19 24 Active sulfamethoxazole- trimethoprim (BACTRIM) 400-80 mg per tablet TAKE 1 TABLET BY MOUTH EVERY WEDNESDAY, WEDNESDAY AND WEDNESDAY 90 tablet 3 11/15/19 24 Active amLODIPine (NORVASC) 10 mg tablet Take 1 tablet (10 mg total) by mouth daily 30 tablet 1 02/02/20 24 Active carvediloL (COREG) 12.5 mg tablet Take 1 tablet (12.5 mg total) by mouth 2 (two) times a day with meals 180 tablet 02/02/20 24 Active minoxidiL (LONITEN) 2.5 mg tablet TAKE 2 TABLETS BY MOUTH TWICE DAILY 360 tablet 3 02/07/20 24 Active losartan (COZAAR) 100 mg tablet TAKE 1 TABLET BY MOUTH DAILY 100 tablet 2 04/03/20 24 Active sertraline (ZOLOFT) 50 mg tablet Take 1 tablet (50 mg total) by mouth daily Active albuterol 2.5 mg /3 mL (0.083 %) nebulizer solution INHALE THE CONTENTS OF 1 VIAL VIA NEBULIZER EVERY 6 HOURS NEEDED FOR WHEEZING OR FOR SHORTNESS OF BREATH 04/14/20 24 Active Saline NasaL 0.65 % nasal spray SPRAY 1 SPRAY INTO INTO EACH NOSTRIL NEEDED FOR DRY NOSE 04/26/20 24 Active ondansetron ODT (ZOFRAN-ODT) 4 mg disintegrating tablet DISSOLVE ONE TABLET BY MOUTH EVERY 8 HOURS NEEDED NAUSEA OR VOMITING 20 tablet 1 07/18/19 25 Active entecavir (BARACLUDE) 0.5 mg tabletIndications :Chronic viral hepatitis B without delta agent 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 (HCC) TAKE 1 TABLET BY MOUTH EVERY 7 DAYS 12 tablet 07/18/19 25 Active Tivicay 50 mg tablet TAKE ONE TABLET BY MOUTH TWICE A DAY 60 tablet 3 07/18/19 25 Active fostemsavir (Rukobia) 600 mg tablet extended release 12 hr tablet extended release TAKE ONE TABLET BY MOUTH TWICE A DAY 60 tablet 3 07/18/19 25 Active senna-docusate (PERICOLACE) 8.6-50 mg Take 2 tablets by mouth 2 (two) times a day 200 tablet 3 07/27/19 25 Active Prezcobix 800-150 mg-mg tabletIndications :Currently asymptomatic HIV infection, with history of HIV-related illness (HCC) TAKE ONE TABLET BY MOUTH EVERY DAY 90 tablet 08/15/19 25 Active Symbicort 160-4.5 mcg/actuation inhaler Inhale 2 puffs 2 (two) times a day 08/09/19 25 Active cloNIDine (CATAPRES) 0.2 mg tablet Take 1 tablet (0.2 mg total) by mouth 3 (three) times a day 08/08/19 25 Active doxazosin (CARDURA) 8 mg tablet Take 1 tablet (8 mg total) by mouth daily 08/12/19 25 Active triamcinolone (KENALOG) 0.1 % ointment Apply topically 2 (two) times a day Active baclofen (LIORESAL) 10 mg tabletIndications :Muscle spasms of neck Take 1 tablet (10 mg total) by mouth 3 (three) times a day as needed for muscle spasms 90 tablet 08/16/19 25 2024 Active cyclobenzaprine (FLEXERIL) 5 mg tablet Take 1 tablet (5 mg total) by mouth 2 (two) times a day as needed 11/01/19 24 2024 Discontinued(A lternate therapy) cloNIDine (CATAPRES) 0.2 mg tablet Take 1 tablet (0.2 mg total) by mouth 3 (three) times a day 90 tablet 1 02/02/20 24 03/07/ 2025 Discontinued(T herapy completed) doxazosin (CARDURA) 8 mg tablet Take 1 tablet (8 mg total) by mouth nightly 30 tablet 1 02/02/20 24 2024 Discontinued(T herapy completed) senna-docusate (PERICOLACE) 8.6-50 mg Take 2 tablets by mouth 2 (two) times a day 04/19/20 24 2024 Discontinued(R eorder) triamcinolone (KENALOG) 0.1 % cream APPLY TO AFFECTED AREAS TWICE DAILY FOR PSORIASIS 04/22/20 24 2024 Discontinued(D uplicate order) Prezcobix 800-150 mg-mg tabletIndications :Currently asymptomatic HIV infection, with history of HIV-related illness (HCC) TAKE ONE TABLET BY MOUTH EVERY DAY 90 tablet 05/25/19 25 2024 Discontinued azithromycin (ZITHROMAX) 250 mg tabletIndications :COPD with acute exacerbation (HCC) Take 2 tabs (500 mg) by mouth today, than 1 tab (250 mg) daily for 4 days. 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 Had been on tenofovir containing ART regimens for many years. Eventually tenofovir discontinued due to progressive kidney dysfunction and he was receiving a 3TC (without TXF) containing ART regimen up until 2021. Then 3TC was discontinued from ART components and he was started on entecavir adjusted for kidney function at the time. When I met him in 10/2023 he had been off entecavir for a few months and was newly started on hemodialysis. A CT abdomen pelvis in May 2021 showed grossly normal liver with some punctate calcifications. In September 2021 he had very high HBV DNA but no LFT derangement. He used to drink alcohol occasionally but reports stopping all alcohol intake since several years ago. He was restarted on weekly entecavir in 10/2023. Relevant recent labs: - HBsAg positive 03/2024 - HBeAg positive 10/2023 - HBeAb negative 10/2023 - AST and ALT normal in 04/2024 Latest Reference Range & Units 12/14/23 14:30 01/21/24 10:15 04/13/24 05:59 HBV DNA Result Detected ! Detected ! Detected ! HBV DNA IU/mL IUnits/mL 58,700,000 41,200,000 59,400,000 HBV DNA log IU/mL log IUnits/mL 7.77 7.61 7.77 - Repeat CMP and HBV DNA today. - Continue weekly entecavir (HD dose). Hematoma 04/19/2024 Secondary hyperparathyroidism of renal origin Hyperphosphatemia 04/19/2024 Pleural effusion 04/08/2024 Hyponatremia 04/08/2024 Right shoulder pain 01/25/2024 Neck pain 01/25/2024 Tobacco use 01/20/2024 ESRD (end stage renal disease) on dialysis 01/10 Memory problem 11/05/2023 Assessment & Plan (11/05/2023 11:01 AM CDT): Brief assessment today with possible short term memory deficits. No focal neurological findings. No significant gait disturbances noted. Symptoms are chronic but slowly progressing. This is probably multifactorial with likely some component of legacy effects of HIV. Will assess further on upcoming visits. Rectal cancer 10/07/2023 Overview (11/05/2023): Last Assessment & Plan: Lesion just to the left of the [...] for chemotherapy due to his debilitated state. Seizure 08/29/2023 Hyperkalemia 08/29/2023 Thrombocytopenia 08/29/2023 Falls 08/29/2023 Squamous cell carcinoma of anal margin 10/27/202 3 Cancer Staging:Clinical stage from 03/25/2023: cT2, cNX, cM0 - Signed by David Gorman MD on 03/25/2023 Assessment & Plan (11/05/2023 10:49 AM CDT): Currently post-resection with no apparent plans for chemotherapy. Potential plans for radiation. Asymptomatic at the moment. Pancytopenia 03/12/2023 Hypercoagulable state 06/08/2021 Overview (07/28/2021): Last Assessment & Plan: Patient reports being told during his recent hospitalization that his blood was thick. CBC, prothrombin time, PTT are ordered today. Anxiety 01/11/2020 Overview (07/28/2021): Last Assessment & Plan: Reports that he is chronically anxious and would like to try medical marijuana to see if it would help his symptoms. Aortic ectasia 04/13/2018 Overview (07/28/2021): 06/16/2018 OV, Dr. Parham CXR (08/03/2016) Aortic tortuosity, ectasia Last Assessment & Plan: Noted on chest x-ray dated 08/03/16. No further work-up is required. Benign non-nodular prostatic hyperplasia with lower urinary tract symptoms 10/12/2016 Overview (07/28/2021): Noted on renal ultrasound from July,. Digital [...] saw urologist, Dr. Salas, and was given Mobile Safe Case. No current complaints of urinary outlet syndrome. Last Assessment & Plan: Noted on recent renal ultrasound. Reports that he recently saw urologist, Dr. Salas, and was given clean [facility]. No current complaints of urinary outlet syndrome. Hypercholesterolemia 06/23/2016 Overview (11/05/2023): Noted in past. Most recent cholesterol panel was done on 06/23/16 and was relatively normal. Last Assessment & Plan: Noted on prior blood work. Most recent lipid panel done on 06/14/20 showed normal fractions. Repeat fasting lipid panel is ordered today. Noted in past. Most recent cholesterol panel was done on 06/23/16 and was relatively normal. Last Assessment & Plan: Most recent lipid panel from 06/06/21 showed elevated LDL of 145. He is currently on no medication to lower his cholesterol level. Repeat fasting lipid panel is ordered today. Assessment & Plan (01/11/2024 10:42 AM CDT): Continue statin therapy. Assessment & Plan (11/03/2023 11:01 AM CDT): Today's lipid panel shows TC 189. He is not on statin at the moment. If dyslipidemia worsens in the future, will have to be mindful that current ART regimen includes cobicistat and statin dose would have to be adjusted for this DDI. 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 I have referred the patient to colorectal surgeon, Dr. Yani Prieto, to have these resected. He had an appointment with Dr. Prieto on 10/13/16, but he apparently was unable to make that appointment. I have strongly encouraged him today to follow-up with the specialist as advised. RPR from May, was negative. Last Assessment & Plan: These were noted on his external rectal examination done on 10/12/16. I had referred the patient to colorectal surgeon, Dr. Yani Prieto, to have these resected. He had an appointment with Dr. Prieto on 10/13/16, but he never returned to have examination under anesthesia. I have strongly encouraged him at prior visits to follow-up with the specialist as advised. RPR has been negative. Chronic hepatitis C 08/09/2014 Overview (05/18/2024): 04/25/2019 OV, Dr. Dione Parham note 08/09/14. Patient has desired no treatment during past visits. Latest hepatitis C viral load done by Dr. Weir in 2009 was undetectable. Hepatitis C antibody test from prior visit was positive and confirmed diagnosis. LFTs from July, were normal. Assessment & Plan (01/04/2024 10:49 AM CDT): HIV/HBV coinfection. HDV Ab negative on 07/2021. Had been on tenofovir containing ART regimens for many years. Eventually tenofovir discontinued due to progressive kidney dysfunction and he was receiving a 3TC containing ART regimen up until 2021. Then 3TC was discontinued from ART components and he was started on entecavir adjusted for kidney function at the time. When I met him in 10/2023 he had been off entecavir for a few months and was newly started on hemodialysis. A CT abdomen pelvis in May 2021 showed grossly normal liver with some punctate calcifications. In September 2021 he had very high HBV DNA but no LFT derangement. He used to drink alcohol occasionally but reports stopping all alcohol intake for the last few months. He was restarted on weekly entecavir in 10/2023. Doing well so far. Relevant labs: Latest Reference Range & Units 11/02/23 19:38 11/02/23 19:48 11/02/23 20:16 12/14/23 14:30 Hep A total Nonreactive Reactive ! HepBsAg Nonreactive Reactive ! HepBsAg confirm Non-Reactive Reactive ! HBsAb (immune status) Nonreactive Hep B core IgG/IgM Nonreactive Reactive ! Hep Be Ag Negative Positive ! Hep Be Ab Negative Negative HBV DNA Result Detected ! Detected ! HBV DNA IU/mL IUnits/mL 92,700,000 58,700,000 HBV DNA log IU/mL log IUnits/mL 7.97 7.77 Hep C Ab Nonreactive Reactive ! HCV RNA result Not Detected !: Data is abnormal Latest Reference Range & Units 11/02/23 20:03 12/14/23 14:30 AST 10 - 50 Units/L 22 24 ALT 7 - 55 Units/L 16 17 Plan: - Continue entecavir (HD dose). - Will plan for HCC screening on future visit. Assessment & Plan (11/05/2023 10:45 AM CDT): HIV/HBV coinfection. HDV Ab negative on 07/2021. Has been on tenofovir containing ART regimens for many years. Eventually tenofovir discontinued due to progressive kidney dysfunction and he was receiving a 3TC containing ART regimen up until 2021. Then 3TC was discontinued from ART components and he was started on entecavir adjusted for kidney function at the time. He has now been off entecavir for a few months. He is now on hemodialysis. A CT abdomen pelvis in May 2021 showed grossly normal liver with some punctate calcifications. In September 2021 he had very high HBV DNA but no LFT derangement. He used to drink alcohol occasionally but reports stopping all alcohol intake for the last few months. Relevant labs today: HBsAg positive HBcAb positive IgG/IgM HBeAg positive HBeAb negative HBV DNA 92 million copies AST 22 ALT 16 TB 0.3 Alb 4.3 Plan to restart entecavir 0.5 mg once a week (hemodialysis dose). Discussed importance of adherence to medications and risk of hepatitis B flares. Will plan for HCC screening. Assessment & Plan (10/17/2021 11:27 AM CDT): He has a history of chronic hep B, previously treated with the lamivudine. On recent labs his viral load is exceedingly high, likely rebound viremia after stopping meds. He was started on Entecavir 08/20 and per labs has had a good viral response. Plan: - Initial viral load > 9 logs, now 6.2 log - Continues to have reasonable response; will monitor - Will continue to monitor AST/ALT for inflammation - Cont Entecavir, renally dosed - Will refer for HCC screening/fibrosis screening Assessment & Plan (09/19/2021 10:51 AM CDT): He has a history of chronic hep B, previously treated with the lamivudine. On recent labs his viral load is exceedingly high, likely rebound viremia after stopping meds. He was started on Entecavir 08/20 and per labs has had a good viral response Plan: - Initial viral load > 9 logs, now 6.7 log suggesting appropriate response - Cont Entecavir, renally dosed - Will refer for HCC screening/fibrosis screening Assessment & Plan (08/26/2021 11:37 PM CDT): He has a history of chronic hep B, previously treated with the lamivudine. On recent labs his viral load is exceedingly high, likely rebound viremia after stopping meds. CMP without evidence of acute hepatitis picture. Plan: - Start Entecavir, renally dosed - Hep D screening today - Will refer for HCC screening/fibrosis screening Assessment & Plan (07/28/2021 1:03 PM ASPHALT TAMPING 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): He has a history of chronic hep B, likely treated with the lamivudine he was on. Will assess liver function today and Hep B viral load. Essential (primary) hypertension 09/02/2012 Overview (11/05/2023): Last Assessment & Plan: Continue to take Norvasc. BP was well-controlled today. Last Assessment & Plan: BP is very poorly controlled presently. Increase dosage of Clonidine from twice daily to three times daily. Continue to take Carvedilol, Doxazosin, Hydralazine, Imdur and Losartan. He will see his piler next week to discuss further changes in his blood pressure medications. I have asked him or Radha to e-mail me through My Chart in 1 week with some home blood pressure readings. Assessment & Plan (03/03/2024 10:22 AM CDT): Continue amlodipine, carvedilol, clonidine Assessment & Plan (01/11/2024 10:41 AM CDT): Continue antihypertensives Assessment & Plan (11/05/2023 10:52 AM CDT): Severe hypertension on multiple meds as above. Today BP is well controlled. He follows with Dr. Parham and piler. No changes in medications today. Note that there are potential drug interactions between his cardiac/HTN meds and ART (see HIV problem for more details). This should be considered while assessing therapeutic response and adverse events. COPD (chronic obstructive pulmonary disease) 10/2011 Overview (05/18/2024): 04/25/2019 OV, Dr. Parham Continue to use [...] all inhaled medications to his next visit. Last Assessment & Plan: He reported at his last visit that he was diagnosed with COPD exacerbation in addition to Covid pneumonia during his last hospitalization. His only current inhaled medication is either Albuterol HFA MDI or Albuterol nebulized solution which he uses as needed. 04/25/2019 OV, Dr. Parham Continue to use [...] all inhaled medications to his next visit. Last Assessment & Plan: He should be wearing supplemental oxygen, but it is not one today. Continue to use either Albuterol nebulized solution or Albuterol HFA MDI as needed. Complete smoking cessation is advised. 04/25/2019 OV, Dr. Parham Continue to use [...] all inhaled medications to his next visit. Psoriasis 04/09/2009 Overview (05/18/2024): Small plaques noted on posterior elbows. He is on no medication for this condition at this time. Patient has scaly rash at times. Prescription for Kenalog ointment is given for patient to use as needed. Last Assessment & Plan: Patient has a scaly rash at times -- not noted today. He uses Kenalog ointment as needed. Small plaques noted on posterior elbows. He is on no medication for this condition at this time. Patient has scaly rash at times. Prescription for Kenalog ointment is given for patient to use as needed. Last Assessment & Plan: Patient has a scaly rash at times -- not noted today. He uses Kenalog ointment as needed to treat the rash. Small plaques noted on posterior elbows. He is on no medication for this condition at this time. Patient has scaly rash at times. Prescription for Kenalog ointment is given for patient to use as needed. HIV (human immunodeficiency virus infection) Overview (11/05/2023): 04/25/2019 OVDr. Parham Last Assessment & Plan: Due to previous resistance to Genvoya, he continues to take Prezcobix, BID Tivicay, and Epivir as started in April,. Most recent HIV viral load from February, showed that he has become resistant to this regimen. Referral to infectious disease specialists at [facility] has been made, but apparently, they [...] 200 in order to prevent pneumocystis pneumonia. 04/25/2019 OVDr. Parham Last Assessment & Plan: Due to previous resistance to Genvoya, he continues to take Prezcobix, BID Tivicay, and Epivir as started in April,. Most recent HIV viral load from February, showed that he has become resistant to this regimen. Referral to infectious disease specialists at [facility] has been made, but apparently, they do not accept his insurance. 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 Full details of background history on prior notes (see my note from 11/02/2023. His girlfriend Radha is assisting him time clock inspector for all his healthcare needs including giving him pills. His HIV has multiple relevant mutations which have rendered all NRTIs ineffective. While resistance data has not captured any NNRTI-related mutations, it is very likely he has archived mutations as these ar some of the most common overall. There is residual activity of DTG and BIC, and no apparent significant mutations associated with PIs. He has intermittent nausea in the context of polypharmacy. Currently on DTG BID + DRV/ALAN + FTR BID. He has been doing well on this with slow improvement in CD4 count. Plan: - Continue DTG (Tivicay) BID + DRV/ALAN (Prezcobix) daily + FTR (Rukobia) BID. - Continue TMP/SMX, 1 DS tablet three times a week (MWF), for prophylaxis. - He takes calcium acetate and I emphaszied to try dosing it as separate as possible from DTG dosing as there may be impaired DTG absorption in the context of any divalent cation intake. - There are some potential drug-drug interactions identified related to his ART. ALAN component in Prezcobix could increase plasma concentrations of amlodipine, doxazosin, carvedilol, and sertraline. Close monitoring of therapeutic response and side effects is required. In addition, any new medication to be started should be checked for drug interactions with ART. Recommended resource: https://www.hiv-druginteractions.org/fact checker Assessment & Plan (01/04/2024 10:44 AM CDT): Mr. Salcedo is a long-term survivor of HIV with heavy treatment experience. Details of history on HPI. His girlfriend Radha is assisting him time clock inspector for all his healthcare needs including giving him pills. His HIV has multiple relevant mutations which have rendered all NRTIs ineffective. While resistance data has not captured any NNRTI-related mutations, it is very likely he has archived mutations as these ar some of the most common overall. There is residual activity of DTG and BIC, and no apparent significant mutations associated with PIs. When I met Mr. Salcedo in 10/2023 he had been consistently taking DTG BID + DRV/ALAN + FTR BID. This regimen was able to maintain viremia 100-200 in 2021. His HIV viral load in 10/2023 was 75 copies/mL which is an excellent response. CD4 count still low at 73 but improving. He was having intermittent nausea in the context of polypharmacy. Joint decision was to continue DTG BID + DRV/ALAN + FTR BID. He has been doing well on this with slow improvement in CD4 count. Plan: - Continue DTG (Tivicay) BID + DRV/ALAN (Prezcobix) daily + FTR (Rukobia) BID. - Continue TMP/SMX, 1 DS tablet three times a week (MWF), for prophylaxis. - He takes calcium acetate and we discussed to try dosing it as separate as possible from DTG dosing as there may be impaired DTG absorption in the context of any divalent cation intake. - There are some potential drug-drug interactions identified related to his ART. ALAN component in Prezcobix could increase plasma concentrations of amlodipine, doxazosin, carvedilol, and sertraline. Close monitoring of therapeutic response and side effects is required. In addition, any new medication to be started should be checked for drug interactions with ART. 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 Details of history on HPI. His girlfriend Radha is assisting him time clock inspector for all his healthcare needs including giving him pills. His HIV has multiple relevant mutations which have rendered all NRTIs ineffective. While resistance data has not captured any NNRTI-related mutations, it is very likely he has archived mutations as these ar some of the most common overall. There is residual activity of DTG and BIC, and no apparent significant mutations associated with PIs. They report he has been consistently taking DTG BID + DRV/ALAN + FTR BID. This regimen was able to maintain viremia 100-200 in 2021. His HIV viral load today is 75 copies/mL which is an excellent response. CD4 count is still pending although it is probable he will have a low count given history. We had long conversation regarding options for HIV treatment moving forward. He has episodes of severe nausea that occur once or twice a week. It is difficult to ascertain if this is driven by some particular medication or just the result of polypharmacy and comorbidities. Other than this, he seems to be tolerating ART well. In this context, we decided together that will continue current ART regimen and treat nausea symptomatically (see separate problem), with attention to potential triggers. Plan: - Continue DTG (Tivicay) BID + DRV/ALAN (Prezcobix) daily + FTR (Rukobia) BID. - Continue TMP/SMX, 1 DS tablet three times a week (MWF), for prophylaxis. - He takes calcium acetate. Instructed to try dosing it as separate as possible from DTG dosing as there may be impaired DTG absorption in the context of any divalent cation intake. - There are some potential drug-drug interactions identified related to his ART. ALAN component in Prezcobix could increase plasma concentrations of amlodipine, doxazosin, carvedilol, and sertraline. Close monitoring of therapeutic response and side effects is required. In addition, any new medication to be started should be checked for drug interactions with ART. Recommended resource: https://www.hiv-druginteractions.org/fact checker Assessment & Plan (10/17/2021 11:24 AM CDT): Mr. Salcedo is a 66 year old [...] PJP prophylaxis - RTC in 3 months Assessment & Plan (09/19/2021 10:49 AM CDT): Mr. Salcedo is a 66 year old [...] - Doing well on Meds, viral load dropped from 355K to 348, 3 log reduction - Cont Fostemsavir BID +Tivicay BID + Prezcobix - [facility] - Cont bactrim for PJP prophylaxis - RTC in 4 weeks for close follow up Assessment & Plan (08/26/2021 11:35 PM CDT): Mr. Salcedo is a 66 year old male living with HIV who is heavily treatment experienced with resistance to NRTIs and INSTIs. He is currently off of treatment with viral load in the 300K range and CD4 < 35. He reports cough today and fevers. Exam reassuring. We discussed starting treatment today and I spent a lot of time discussing a regimen with him and his partner. We discussed adherence. 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 Salcedo is a 66 year old male living with HIV who is heavily treatment experienced with resistance to NRTIs and INSTIs. He is currently on high dose dolutegravir and prezcobix. He reports current adherence to daily dosing but does admit to difficulty in adherence in the past. We discussed sex and that his partner should be on PrEP if possible. We also discussed adherence. At this time will have him continue his current regimen with plans to obtain labs today, including genotype. Plan: - Cont Tivicay BID + Prezcobix - Considering addition of Marviroc - Will obtain viral load and genotype today - Obtain baseline labs to assess renal function - Cont bactrim - RTC in 4 weeks for close follow up - Discussed partner getting on PrEP Resolved Problems Problem Noted Date Diagnosed Date Resolved Date Right lower quadrant abdominal pain 04/19/2024 08/15/2024 Moderate protein-calorie malnutrition 04/17/2024 08/15/2024 Right lower quadrant abdominal abscess 04/08/2024 08/15/2024 ESRD on hemodialysis 04/08/2024 025 Acute appendicitis, unspecif ied acute appendicitis type 03/09/2024 08/15/2024 MRSA (methicillin resistant Staphylococcus aureus) infection 01/21/2024 08/15/2024 MRSA bacteremia 01/20/2024 08/15/2024 Acute respiratory failure with hypoxia 01/20/2024 08/15/2024 Nausea 11/05/2023 08/15/2024 Assessment & Plan (11/05/2023 10:48 AM CDT): Likely related to polypharmacy. Episodes occur about 2-3 times per week but are severe. Rarely vomits. Discussed about potential causes. Difficult to ascertain if related to any of his meds. Encouraged to keep a detailed diary of nausea symptoms including timing of pills, food intake, and other symptoms on the days he develops nausea. Will prescribe ondansetron PRN for now. Call back if worsening symptoms. ESRD on dialysis 10/13/2023 11/03/2023 Hypertensive emergency 10/11/202311/02 End-stage renal disease on hemodialysis 08/29/2023 08/15/2024 Overview (11/05/2023): Last Assessment & Plan: He continues to go to hemodialysis on Mon/Wed/Fri. Temporary dialysis catheter is noted in the right upper chest wall. Assessment & Plan (03/03/2024 10:25 AM CDT): Discussed procedures of graft creation versus fistula creation. Regarding his previous vein mapping on 01/11/2024 the left upper extremity would be a better starting point is patient is right arm dominant and he already has issues with paresthesia and easily dropped objects with the right hand. For this reason I would start with the left upper extremity for fistula versus graft creation. Answered all questions to he and his 's satisfaction. They are agreeable wishes to proceed. Assessment & Plan (01/11/2024 10:44 AM CDT): Discussed procedures of graft creation versus fistula creation. Discussed potential risks of both and answered all questions to patient's and family member's satisfaction. Per his current vein mapping he is a potential candidate for fistula creation to the right upper extremity. He is right arm dominant. He is agreeable wishes to proceed. Assessment & Plan (11/05/2023 10:31 AM CDT): Receives HD MWF at [facility] in [facility], currently via RIJ tunneled catheter but undergoing planning for AV fistula creation. HD catheter today looks well without signs of infection. Elevated brain natriuretic p eptide (BNP) level 08/29/2023 11/03/2023 Troponin level elevated 08/29/202310/22 Urinary retention 08/29/2023 11/03/2023 Syncope 08/29/2023 11/03/2023 CKD (chronic kidney disease) 03/11/2023 03/12/2023 CKD (chronic kidney disease) stage 4, GFR 15-29 ml/min 03/30/2022 11/03/2023 Peripheral edema 06/08/2021 11/03/2023 Overview (07/28/2021): Last Assessment & Plan: Now on Lasix as started by hospital [...] wound of left hand without foreign body 11/03/2023 Overview (07/28/2021): Last Assessment & Plan: It does not appear infected, but it has remained open now for some weeks. I have advised him to apply aloe vera gel to the wound to promote healing. Repeat examination of the wound at a future visit. Pneumonia due to COVID-19 virus 05/29/2021 11/03/2023 Overview (07/28/2021): Last Assessment & Plan: Recent long hospitalization at [facility] in [place], [place]. I have no records from said hospitalization. He continues to use home oxygen. He appears mildly dyspneic at rest, though his lung examination is presently normal. Pulse oximetry on portable oxygen was acceptable today. Consider referral to crocodile farmer at a future visit. Home health referral [...] to keeping the patient at home safely. Insomnia 03/11/2017 11/03/2023 Overview (07/28/2021): Last Assessment & Plan: Chronic condition for this patient. Not discussed at today's visit. He may take Melatonin as needed. Overweight 10/12/2016 08/15/2024 Overview (05/18/2024): IMO Update 02/21/2017 Exact BMI is discussed. I encouraged him to stop smoking marijuana at a prior visit. Medical dangers of obesity are discussed. But overall, I am much more concerned that he continue to avoid smoking cigarettes. Last Assessment & Plan: See exact BMI above. He has gained weight recently, and due to recent long hospitalization, I have encouraged him to continue to try to eat well and avoid malnutrition. IMO Update 02/21/2017 Exact BMI is discussed. I encouraged him to stop smoking marijuana at a prior visit. Medical dangers of obesity are discussed. But overall, I am much more concerned that he continue to avoid smoking cigarettes. Last Assessment & Plan: See exact BMI above. He has lost weight recently. He should focus on maintaining a healthy diet to avoid malnutrition. IMO Update 02/21/2017 Exact BMI is discussed. I encouraged him to stop smoking marijuana at a prior visit. Medical dangers of obesity are discussed. But overall, I am much more concerned that he continue to avoid smoking cigarettes. Poor dentition 08/05/2016 11/03/2023 Overview (07/28/2021): He knows that he should see a dentist and have multiple teeth pulled. He cannot afford to see a dentist at this time. Daily flossing has been advised at prior visits as he also has evidence of gingivitis. Last Assessment & Plan: He knows that he should see a dentist and have multiple teeth pulled. CKD (chronic kidney disease) stage 3, GFR 30-59 ml/min 06/23/2016 03/12/2023 Overview (07/28/2021): 04/25/2019 ANN MARIE, Josh Weston MD at 09/10/2017 Last Assessment & Plan: Most recent serum creatinine was 1.46 with [...] Urinalysis is ordered today. Assessment & Plan (08/26/2021 11:37 PM CDT): Creatinine likely worsened with Bactrim prophylaxis. History of hepatitis C 08/09/201408/15 Overview (07/28/2021): 04/25/[address] note 08/09/14. Patient has desired no treatment during past visits. Latest hepatitis C viral load done by Dr. Weir in 2009 was undetectable. Hepatitis C antibody test from prior visit was positive and confirmed diagnosis. LFTs from July, were normal. Last Assessment & Plan: Patient has desired no treatment during past [...] at a future visit. Assessment & Plan (11/05/2023 10:46 AM CDT): Per records, he has been offered treatment in the past but decided not to proceed back then. No apparent evidence of Hep C flares. Most recent HCV RNA in 07/2021 was undetectable. Repeat HCV RNA today was undetectable. Likely spontaneous clearance. No further action required. 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 Will check HCV today. AIDS (acquired immune deficiency syndrome) 04/09/2009 07/11/2024 Overview (05/18/2024): 04/25/2019 OV, Dr. Parham Immunizations Immunization Administration Dates Next Due COVID-19 mRNA ([employer]) 0.3 m L (30 mcg) vaccine (12 years and up) 06/27/2024,02/16/2023 Hep B, Unspecified 11/27/2011,10/28/2011, 012 Influenza, Quad, Adjuvantate d, Intramuscular 05/23/2022,03/03/2021,02/19/2020 Influenza, Quadrivalent, Hig h Dose, Preservative Free, Intrr 02/16/2023 Influenza, Quadrivalent, Rec ombinant, Egg Free, Preservative Free, Intramuscular 04/25/2019,06/16/2018 Influenza, Quadrivalent, Spl it, Intramuscular 01/28/2017 Influenza, Quadrivalent, Spl it, Preservative Free, Intramuscular 01/28/2017,06/23/2016,06/19/2014 Influenza, Unspecified 02/23/2024,2022,02/19/2020,02/11 Meningococcal MCV4P (Menactra) 10/14/2018,2018 [employer]Soft SARS-CoV-2 Monovalent Vaccination (12+ Yrs) PURPLE 07/07/2021 [employer]Soft Sars-Cov-2 Bivalent V accination (12+ YRS) 02/16/2023,06/24/2022 Pneumococcal Conjugate PCV 13 06/19/2014 Pneumococcal Conjugate Pcv20 02/16/2023,06/24/19 23 Pneumococcal Polysaccharide PPV23 06/23/2016,05/2010 RSV Vaccine, Pref, Recombina nt, Subunit, Adjuvanted, PF, IM (Arexvy) 02/29/2024 RSV, Bivalent, Protein Subun it Rsvpref, Diluent (Abrysvo) 02/29/2024 Td, Unspecified 03/24/2010 Tetanus Immune Globulin 03/24/2010 Tetanus toxoid, adsorbed 03/24/2010 ZOSTER Recombinant 02/19/2020 Social History Tobacco Use Types Packs/Day Years Used Date Smoking Tobacco: Some Days Cigarettes 0.3 10 Passive Smoke Exposure: Never Smokeless Tobacco: Never Tobacco Cessation:Ready to Q uit: Yes; Counseling Given: Not Answered Comments:Last cigarette 05/12 Alcohol Use Standard Drinks/Week Comments Not Currently 0 (1 standard drink = 0.6 oz pur e alcohol) [facility] [employer] Answer Date Recorded In the past 12 months has [employer], oil, or water [employer] threatened to shut off services in your home? No 04/11/2024 Social Connection and Isolat ion Panel [NHANES] Answer Date Recorded In a typical week, how many times do you talk on the phone with family, friends, or neighbors? More than three times a week 04/11/2024 How often do you get togethe r with friends or relatives? More than three times a week 04/11/2024 How often do you attend chur ch or episcopalian services? Never 04/11/2024 Do you belong to any clubs o r organizations such as oriental orthodox groups, unions, fraternal or athletic groups, or school groups? No 04/11/2024 How often do you attend meet ings of the clubs or organizations you belong to? Never 04/11/2024 Are you , , di vorced, , never , or living with a partner? Living with partner 04/11/2024 AUDIT-C Answer Date Recorded Q1: How often do you have a drink containing alcohol? Never 03/09/2024 Q2: How many drinks containi ng alcohol do you have on a typical day when you are drinking? Patient does not drink Q3: How often do you have si x or more drinks on one occasion? Never 03/09/2024 Overall Financial Resource Strain (CARDIA) Answe r Date Recorded How hard is it for you to pa y for the very basics like food, housing, medical care, and heating? Not very hard 04/11/2024 PHQ-2 Answer Date Recorded PHQ-2 Total Score (If total score is 3 or more points, staff should administer the PHQ-9) 1 06/27/2024 Hunger Vital Sign Answer Date Recorded Within the past 12 months, y ou worried that your food would run out before you got the money to buy more. Never true 04/11/20 24 Within the past 12 months, t he food you bought just didn't last and you didn't have money to get more. Never true 04/11/2024 PRAPARE - Transportation Answer Date Re corded In the past 12 months, has l ack of transportation kept you from medical appointments or from getting medications? No 03/24 In the past 12 months, has l ack of transportation kept you from meetings, work, or from getting things needed for daily living? No 04/11/2024 Housing Stability Vital Sign Answer Tk e Recorded In the last 12 months, was t here a time when you were not able to pay the mortgage or rent on time? No 08/30/2023 In the last 12 months, how many places have you lived? 1 08/30/2023 In the last 12 months, was t here a time when you did not have a steady place to sleep or slept in a senior care (including now)? No 08/30/2023 PHQ-9 Answer Date Recorded PHQ-9 Total Score 0 03/09/2024 Housing Stability Vital Sign Answer Tk e Recorded In the last 12 months, was t here a time when you were not able to pay the mortgage or rent on time? No 04/11/2024 In the past 12 months, how m any times have you moved where you were living? 0 04/11/2024 At any time in the past 12 m [facility], were you homeless or living in a senior care (including now)? No 04/11/2024 Personal Safety Answer Date Recorded Have you ever been in or are you currently in a harmful physical or emotional relationship or is someone making you feel afraid or unsafe? 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 Gender Identity Not on file Sexual Orientation Not on file Last Filed Vital Signs Vital Sign Reading Time Taken Comments Blood Pressure 132/76 08/15/2024 3:13 PM CDT Pulse 70 08/15/2024 3:13 PM CDT Temperature 36.1 C (97 F) 08/15/2024 3:13 PM CDT Respiratory Rate 16 08/15/2024 3:13 PM CDT Oxygen Saturation 92% 08/15/2024 3:13 PM CDT Inhaled Oxygen Concentration - - Weight 87.2 kg (192 lb 3.2 oz) 08/15/2024 3:13 P M CDT Height 188 cm (6' 2.02 ) 08/15/2024 3:13 PM CDT Body Mass Index 24.67 08/15/2024 3:13 PM CDT Plan of Treatment Upcoming Encounters Date Type Department Care Team (Latest Contact Info) Description 10/05/2024 7:30 AM CDT Hospital Encounter [facility] OR [address] [place] [address] Seth Henderson IV, MD [address] [place] [id number] 10/05/2024 7:30 AM CDT - 10/05/2024 9:00 AM CDT Surgery [facility] OR [address] [place] [address] Seth Henderson IV, MD [address] [place] [id number] RECTAL EXAM UNDER ANESTHESIA WITH EXCISION ANAL MASS Scheduled Procedures Name Priority Associated Diagnoses Date/Ti me HEMORRHOIDECTOMY ANAL CANCER 10/05/2024 7:30 AM CDT COLONOSCOPY ANAL CANCER 10/05/2024 7:30 AM CDT Medical Devices Implanted Type Area Cell Tester Device Identifier Shelf Expiration Date Model / Serial / Lot [employer] Duraflow Embosafe 15.5fr 28cm Basic 2 Lumen Kit Catheter [id number] - [id number] Implanted:Qty: 1 on 02/01/2024 by Jose Manuel Correa MD at [facility] Catheter Right: Chest [employer] 02/20/2026 [id number] 1 / / [id number] [employer] Duraflow Embosafe 15.5fr 28cm Basic 2 Lumen Kit Catheter [id number] - [id number] Implanted:Qty: 1 on 03/12/2023 by Jose Manuel Correa MD at [facility] Right: Chest [employer] 09/20/2025 [id number] / / [id number] [employer] Schon Xl 24cm Basic Set Catheter Silicone Acute Hemodialysis [id number] - [id number] Implanted:Qty: 1 on 01/27/2024 by Jose Manuel Correa MD at 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 Currently asymptomatic HIV infection, with history of HIV-related illness (HCC) COMPREHENSIVE METABOLIC PANEL Routine 06/27/2024 3:37 PM 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 TAMPING 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 Currently asymptomatic HIV infection, with history of HIV-related illness (HCC) T-HELPER CELLS (CD4) COUNT Routine 06/27/2024 3:37 PM 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 TAMPING 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 Currently asymptomatic HIV infection, with history of HIV-related illness (HCC) HEPATITIS B DNA, QUANTITATIVE, PCR Routine 06/27/2024 3:37 PM 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 TAMPING 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 Currently asymptomatic HIV infection, with history of HIV-related illness (HCC) HIV-1 RNA, QUANTITATIVE, PCR Routine 06/27/2024 3:37 PM 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 TAMPING 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 Currently asymptomatic HIV infection, with history of HIV-related illness (HCC) CT ABDOMEN PELVIS W CONTRAST IP Routine 04/15/2024 6:22 PM 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 TAMPING 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 TB TEST, QUANTIFERON GOLD Routine 01/21/2024 10:15 AM CDT HEPATITIS C ANTIBODY Routine 11/02/2023 8:16 PM CDT Asymptomatic HIV infection (HCC) HEMOGLOBIN A1C Routine 11/02/2023 8:03 PM CDT Asymptomatic HIV infection (HCC) Abnormal finding of blood chemistry, unspecified LIPID PANEL Routine 11/02/2023 8:03 PM CDT Asymptomatic HIV infection (HCC) HEPATITIS A ANTIBODY, TOTAL Routine 11/02/2023 7:48 PM CDT Asymptomatic HIV infection (HCC) RPR Routine 11/02/2023 7:48 PM CDT Asymptomatic HIV infection (HCC) URINALYSIS AND REFLEX TO MICROSCOPIC AND CULTURE Routine 03/12/2023 1:13 AM CDT from Last 3 Months or Most Recently Relevant to Health Maintenance Results * XR Chest PA Lateral 2 Views (08/01/2024 9:41 AM CDT) Anatomical Region Laterality Modality Body, Chest N/A Digital Radiogra phy 08/01/2024 9:56 AM CDT Addenda Addendum by Alf Rios MD on 08/01/2024 10:15 AM CDT ADDENDUM: This addendum report supersedes the original report dated 08/01/2024. An unchanged small metallic fragment is present in the left chest wall. END OF ADDENDUM REPORT THIS IS AN ELECTRONICALLY VERIFIED FINAL REPORT 08/01/2024 10:15 AM Addendum Electronically signed by Alf Rios M.D. MZ T: Report ID: [id number] Reading Location: [id number] Narrative 08/01/2024 10:02 AM CDT EXAM DESCRIPTION: XR CHEST PA LATERAL 2 VIEWS REASON FOR STUDY: cough Pt complains of cough and SOB x 2 weeks. RSV+. Hx copd and rectal cancer. No asthma,heart disease. Current smoker, smoked for 50 years 1 ppd TECHNIQUE: 2 radiographic view(s) of the chest. COMPARISON: 04/07/2024. FINDINGS: LUNGS: There is pulmonary emphysema. No consolidation or pulmonary edema seen. There is an irregular 17 mm nodular opacity projecting in the right upper lung on the frontal view. This could be an irregular 1st rib end but pulmonary nodule is not excluded. Recommend follow-up with chest CT. HEART/MEDIASTINUM: Unchanged heart size and cardiomediastinal contours. LINES/TUBES: Right internal jugular central venous catheter tip projects in the superior vena cava. BONES: No acute displaced fracture or aggressive bone lesion is seen. There is degenerative disc disease Visualized upper abdomen is grossly unremarkable. IMPRESSION: No acute cardiopulmonary findings. 17 mm irregular nodular opacity projecting in the right upper lung on the frontal view. This could be an irregular 1st rib end but pulmonary nodule is not excluded. Recommend follow-up with chest CT. Pulmonary emphysema. THIS IS AN ELECTRONICALLY VERIFIED FINAL REPORT 08/01/2024 10:02 AM - Electronically signed by Alf Rios M.D. MZ T: Report ID: [id number] Reading Location: [id number] Procedure Note Alf Rios MD - 08/01/2024 EXAM DESCRIPTION: XR CHEST PA LATERAL 2 VIEWS REASON FOR STUDY: cough Pt complains of cough and SOB x 2 weeks. RSV+. Hx copd and rectal cancer.No asthma,heart disease. Current smoker, smoked for 50 years 1 ppd TECHNIQUE: 2 radiographic view(s) of the chest. COMPARISON: 04/07/2024. FINDINGS: LUNGS: There is pulmonary emphysema. No consolidation orpulmonary edema seen. There is an irregular 17 mm nodular opacity projecting in the right upper lung on the frontal view. This could be an irregular 1st ribend but pulmonary nodule is not excluded. Recommend follow-up with chest CT. HEART/MEDIASTINUM: Unchanged heart size and cardiomediastinal contours. LINES/TUBES: Right internal jugular central venous catheter tip projectsin the superior vena cava. BONES: No acute displaced fracture or aggressive bone lesion is seen.There is degenerative disc disease Visualized upper abdomen is grossly unremarkable. IMPRESSION: No acute cardiopulmonary findings. 17 mm irregular nodular opacity projecting in the right upper lung on the frontal view. This could be an irregular 1st rib end but pulmonary noduleis not excluded. Recommend follow-up with chest CT. Pulmonary emphysema. THIS IS AN ELECTRONICALLY VERIFIED FINAL REPORT 08/01/2024 10:02 AM - Electronically signed by Alf Rios M.D. MZ T: Report ID: [id number] Reading Location: [id number] Merrick Aguirre NP IMG XR PROCEDURES Edited Result - Final * (ABNORMAL) Influenza A/B, RSV, and COVID-19 PCR Nasopharyngeal (07/28/2024 6:01 PM ASPHALT TAMPING 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) Pathologist [facility] COVID-19 RNA Negative Negative Influenza A RNA Negative Negative [facility] Influenza B RNA Negative Negative [facility] RSV RNA Positive(A) Negative [facility] Comment: Interpretive data: Testing performed by [facility]. This test is performed using the [employer] ([employer]) Xpert Xpress CoV-2/Flu/RSV plus assay. This is a multiplex, real-time reverse transcriptase PCR assay intended for the qualitative detection of nucleic acid from SARS-CoV-2, influenza A, influenza B, and respiratory syncytial virus. This assay has been cleared by the [place] Food and Drug administration. The performance characteristics have been verified by the [facility]. Results must be considered in the clinical context, and a negative result does not rule out infection. Interpretive Data last revised 2023 Nasopharyngeal 07/28/2024 6: 01 PM ASPHALT TAMPING 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 07/28/2024 11:48 PM ASPHALT TAMPING 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 Narrative DARA - 07/29/2024 12:31 AM ASPHALT TAMPING 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 Is the Patient experiencing symptoms consistent with COVID?->Yes Reason for testing?->Symptomatic Known exposure to confirmed or suspected COVID-19 case?->No Merrick Aguirre NP LAB MICROBIOLOGY - GENERAL BLANK WEBB Final Result DARA [id number] [place] [address] * (ABNORMAL) eGFR (06/27/2024 3:37 PM ASPHALT TAMPING 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) Pathologist [facility] eGFR 7(L) >=60 mL/min/1. 73 m2 Comment: Interpretive Data Reference Interval Normal >/= 90 mL/min/1.73m2 Mildly decreased* 60 - 89 mL/min/1.73m2 Mildly to moderately decreased 45 - 59 mL/min/1.73m2 Moderately to severely decreased 30 - 44 mL/min/1.73m2 Severely decreased 15 - 29 mL/min/1.73m2 Kidney Failure < 15 mL/min/1.73m2 *Relative to young adult level Estimated glomerular filtration rate is determined by the 2020 CKD-EPI equation recommended by the National Kidney Foundation (A Unifying Approach to GFR Estimation: Recommendations of the NKF-ASK Task Force on Reassessing the Inclusion of Race in Diagnosing Kidney Disease, JASN 2020). The CKD-EPI equation should not be used for patients with unstable renal function and has not been validated in children and those over 70. Current interpretive data was last reviewed 2021. Blood 06/27/2024 3:37 PM ASPHALT TAMPING 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 06/27/2024 7:08 PM ASPHALT TAMPING 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 Bhavesh Mariano MD LAB BLOOD ORDERAB LES Final Result Performing Organization Address [facility] Co de Phone Number DARA [phone] [place] [place] [address] * (ABNORMAL) Hepatitis B (HBV) DNA PCR, quantitative Blood (06/27/2024 3:37 PM ASPHALT TAMPING 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) [facility] HBV DNA Result Detected( A) [facility] Comment: The quantifiable range of this assay is 10 IU/mL to 1,000,000,000 IU/mL (1.00 log IU/mL to 9.00 log IU/mL). Testing was performed by the VY 6800 HBV Test version 2.0 ([employer] Testing performed at [facility] Current Interpretive Data was last revised on 2020. Testing performed by: [facility], [address] [place]., [address] HBV DNA IU/mL 11,600,00 0 IUnits/mL [facility] Comment:Testing performed by : [facility], [address] [place]., [address] HBV DNA log IU/mL 7.06 log IUnits/mL [facility] Comment:Testing performed by : [facility], [address] [place] [address]., [id number] Blood 06/27/2024 3:37 PM ASPHALT TAMPING 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 06/28/2024 10:05 AM ASPHALT TAMPING 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 Bhavesh Mariano MD LAB MICROBIOLOGY - GENERAL ORDERABLES Final Result Performing Organization Address [facility] Co de Phone Number DARA [phone] [place] [address] [facility] * (ABNORMAL) HIV-1 RNA PCR, quantitative Blood (06/27/2024 3:37 PM ASPHALT TAMPING 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) [facility] HIV-1 RNA Detected( A) [facility] Comment: The quantifiable range of this assay is 20 copies/mL to 10,000,000 copies/mL (1.30 log copies/mL to 7.00 log copies/mL). Testing was performed by the VY 6800 HIV-1 Test([employer] Testing performed at [facility] Current Interpretive Data was last revised on 2020. Testing performed by: [facility], [address] [place]., [address] HIV-1 RNA, copies/mL 92 copies/mL [facility] Comment:Testing performed by : [facility], [address] [place]., [address] HIV-1 RNA, log 1.96 log cps/mL [facility] Comment:Testing performed by : [facility], [address] [place]., [address] Blood 06/27/2024 3:37 PM ASPHALT TAMPING 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 06/28/2024 10:05 AM ASPHALT TAMPING 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 Bhavesh Mariano MD LAB MICROBIOLOGY - GENERAL ORDERABLES Final Result [facility] [address] [place] [address] [facility] * (ABNORMAL) T-helper cells (CD4) count (06/27/2024 3:37 PM ASPHALT TAMPING 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) [facility] WBC 3.7(L) 3.8 - 9.9 K/cumm Lymphocyte Pct 37.0 16.0 - 52.0 % [facility] Lymphocyte # 1,369 1,200 - 3,500 cells/mcL [facility] CD3 pct 76.6 60.0 - 85.0 % [facility] Comment: Interpretive Data The tests utilizing Class I analyte specific reagents (ASRs) cited in this report (if any, and unless otherwise documented) were developed and their performance characteristics determined by [facility]. They have not been cleared or approved by the US Food and Drug Administration. The FDA does not require these tests to go through premarket FDA review. These tests are used for clinical purposes. They should not be regarded as investigational or for research. This laboratory is certified under the Clinical Laboratory Improvement Amendments (CLIA) as qualified to perform high complexity clinical laboratory testing. Current Interpretive Data was last revised on 2013 CD3 Absolute 1,049 720 - 2,975 cells/mcL [facility] CD4 pct 10.7(L) 29.0 - 59.0 % [facility] Comment: Interpretive Data The tests utilizing Class I analyte specific reagents (ASRs) cited in this report (if any, and unless otherwise documented) were developed and their performance characteristics determined by [facility]. They have not been cleared or approved by the US Food and Drug Administration. The FDA does not require these tests to go through premarket FDA review. These tests are used for clinical purposes. They should not be regarded as investigational or for research. This laboratory is certified under the Clinical Laboratory Improvement Amendments (CLIA) as qualified to perform high complexity clinical laboratory testing. Current Interpretive Data was last revised on 2013 CD4 Absolute 146(L) 348 - 2,065 cells/mcL [facility] CD8 pct 65.9(H) 12.0 - 43.0 % [facility] Comment: Interpretive Data The tests utilizing Class I analyte specific reagents (ASRs) cited in this report (if any, and unless otherwise documented) were developed and their performance characteristics determined by [facility]. They have not been cleared or approved by the US Food and Drug Administration. The FDA does not require these tests to go through premarket FDA review. These tests are used for clinical purposes. They should not be regarded as investigational or for research. This laboratory is certified under the Clinical Laboratory Improvement Amendments (CLIA) as qualified to perform high complexity clinical laboratory testing. Current Interpretive Data was last revised on 2013 CD8 Absolute 902 144 - 1,505 cells/mcL [facility] CD19 pct 7.5 7.0 - 23.0 % [facility] Comment: Interpretive Data The tests utilizing Class I analyte specific reagents (ASRs) cited in this report (if any, and unless otherwise documented) were developed and their performance characteristics determined by [facility]. They have not been cleared or approved by the US Food and Drug Administration. The FDA does not require these tests to go through premarket FDA review. These tests are used for clinical purposes. They should not be regarded as investigational or for research. This laboratory is certified under the Clinical Laboratory Improvement Amendments (CLIA) as qualified to perform high complexity clinical laboratory testing. Current Interpretive Data was last revised on 2013 CD19 Absolute 103 84 - 805 cells/mcL [facility] [id number] pct 14.1 6.0 - 29.0 % [facility] Comment: Interpretive Data The tests utilizing Class I analyte specific reagents (ASRs) cited in this report (if any, and unless otherwise documented) were developed and their performance characteristics determined by [facility]. They have not been cleared or approved by the US Food and Drug Administration. The FDA does not require these tests to go through premarket FDA review. These tests are used for clinical purposes. They should not be regarded as investigational or for research. This laboratory is certified under the Clinical Laboratory Improvement Amendments (CLIA) as qualified to perform high complexity clinical laboratory testing. Current Interpretive Data was last revised on 2013 [id number] Absolute 193 72 - 1,015 cells/mcL [facility] CD4/CD8 ratio 0.2(L) 0.7 - 3.5 [facility] Blood 06/27/2024 3:37 PM ASPHALT TAMPING 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 06/27/2024 6:40 PM ASPHALT TAMPING 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 Bhavesh Mariano MD LAB BLOOD ORDERAB LES Final Result [facility] [address] Department [place] [address] * (ABNORMAL) Comprehensive metabolic panel (06/27/2024 3:37 PM ASPHALT TAMPING 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) Sodium 135 135 - 145 mmol/L Potassium, pl 4.7 3.3 - 4.9 mmol/L [facility] Chloride 94(L) 97 - 110 mmol/L [facility] CO2 24 22 - 32 mmol/L [facility] Anion gap 17(H) 2 - 15 mmol/L [facility] BUN 31(H) 6 - 25 mg/dL [facility] Creatinine 8.04(H) 0.80 - 1.30 mg/dL [facility] Glucose 102 70 - 199 mg/dL [facility] Comment: Interpretive Data Fasting glucose >/= 126 mg/dl is diagnostic for diabetes. Fasting is defined as no caloric intake for at least 8 hours. Fasting glucose between 100 mg/dl to 125 mg/dl is diagnostic of prediabetes. In a patient with classic symptoms of hyperglycemia or hyperglycemic crisis, a random glucose >/= 200 mg/dl is diagnostic for diabetes. In the absence of unequivocal hyperglycemia, results should be confirmed by repeat testing. The classification and Diagnosis of Diabetes Diabetes Care 202; 46: S19-S40. Current interpretive data was last revised 2022. Calcium 8.7 8.5 - 10.3 mg/dL [facility] Bilirubin, total 0.3 0.1 - 1.2 mg/dL [facility] Protein, pl 8.8(H) 6.5 - 8.5 g/dL [facility] Albumin 4.3 3.5 - 5.0 g/dL [facility] Alk phos 60 40 - 130 Units/L [facility] ALT 32 7 - 55 Units/L [facility] AST 33 10 - 50 Units/L [facility] Blood 06/27/2024 3:37 PM ASPHALT TAMPING 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 06/27/2024 6:42 PM ASPHALT TAMPING 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 us Bhavesh Mariano MD LAB BLOOD ORDERAB LES Final Result [facility] [address] [place] [address] * CT Abdomen Pelvis W Contrast (04/15/2024 6:22 PM ASPHALT TAMPING 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) Anatomical Region Laterality Modality Body N/A Computed Tomogra phy 04/15/2024 8:50 PM ASPHALT TAMPING 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 Narrative 04/15/2024 9:50 PM ASPHALT TAMPING 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 EXAM DESCRIPTION: CT ABDOMEN PELVIS W CONTRAST REASON FOR STUDY: Abdominal infection suspected Abdominal infection concern Hx anal cancer Hx appy TECHNIQUE: CT scan of the abdomen and pelvis performed with intravenous and without oral contrast using helical scanning technique with dynamic intravenous contrast injection. Reconstructed coronal and sagittal MPR images reviewed. All images stored on PACS. Automated exposure control was used as a dose optimization technique for this examination. CONTRAST TYPE/DOSE: 100mL of IOVERSOL 350 MG IODINE/ML INTRAVENOUS SYRINGE injected via intravenous COMPARISON: 04/08/2024 FINDINGS: LOWER CHEST: Tiny right pleural effusion. Coarse bibasilar atelectasis. Moderate emphysema. Mild cardiomegaly. Coronary artery calcifications. LIVER/BILIARY: Liver unremarkable. Biliary tree normal in caliber. GALLBLADDER: Normal. SPLEEN: Normal. PANCREAS: Normal. ADRENAL GLANDS: Normal. KIDNEYS/URINARY TRACT: Moderate symmetric renal atrophy unchanged. Ureters unremarkable. Bladder collapsed. GI: Stomach and small bowel appear normal. Marked mural enhancement a oblong fluid collection extending posteriorly from the appendectomy site, along the same region where the appendix was previously seen, measures 6 x 3 cm, possibly representing abscess. Extensive mesenteric stranding extending upward from this point to the hepatic flexure of the colon. Colon itself unremarkable. OTHER ABDOMINAL/PELVIS: Major vascular structures are grossly patent normal in caliber. Diffuse atherosclerotic calcification. No enlarged lymph node or free fluid. MSK: Advanced lower lumbar disc disease and facet arthropathy. BODY WALL: Small fat containing left inguinal hernia. IMPRESSION: 6 x 3 cm rim enhancing fluid collection at the appendectomy site may represent hematoma versus abscess. THIS IS AN ELECTRONICALLY VERIFIED FINAL REPORT 04/15/2024 9:50 PM - Electronically signed by Driss Meza M.D. AR: PATRICK Report ID: [id number] Reading Location: [place] [id number] Procedure Note Driss Meza MD - 04/15/2024 EXAM DESCRIPTION: CT ABDOMEN PELVIS W CONTRAST REASON FOR STUDY: Abdominal infection suspected Abdominal infection concern Hx anal cancer Hx appy TECHNIQUE: CT scan of the abdomen and pelvis performed with intravenousand without oral contrast using helical scanning technique with dynamic intravenous contrast injection. Reconstructed coronal and sagittal MPRimages reviewed. All images stored on PACS. Automated exposure control was usedas a dose optimization technique for this examination. CONTRAST TYPE/DOSE: 100mL of IOVERSOL 350 MG IODINE/ML INTRAVENOUSSYRINGE injected via intravenous COMPARISON: 04/08/2024 FINDINGS: LOWER CHEST: Tiny right pleural effusion. Coarse bibasilar atelectasis. Moderate emphysema. Mild cardiomegaly. Coronary artery calcifications. LIVER/BILIARY: Liver unremarkable. Biliary tree normal in caliber. GALLBLADDER: Normal. SPLEEN: Normal. PANCREAS: Normal. ADRENAL GLANDS: Normal. KIDNEYS/URINARY TRACT: Moderate symmetric renal atrophy unchanged.Ureters unremarkable. Bladder collapsed. GI: Stomach and small bowel appear normal. Marked mural enhancement aoblong fluid collection extending posteriorly from the appendectomy site, alongthe same region where the appendix was previously seen, measures 6 x 3 cm, possibly representing abscess. Extensive mesenteric stranding extending upward from this point to the hepatic flexure of the colon. Colon itself unremarkable. OTHER ABDOMINAL/PELVIS: Major vascular structures are grossly patentnormal in caliber. Diffuse atherosclerotic calcification. No enlarged lymphnode or free fluid. MSK: Advanced lower lumbar disc disease and facet arthropathy. BODY WALL: Small fat containing left inguinal hernia. IMPRESSION: 6 x 3 cm rim enhancing fluid collection at the appendectomysite may represent hematoma versus abscess. THIS IS AN ELECTRONICALLY VERIFIED FINAL REPORT 04/15/2024 9:50 PM - Electronically signed by Driss Meza M.D. AR: PATRICK Report ID: [id number] Reading Location: [place] [address] Isidro Daigle MD IM CT PROCEDURES Final Resu lt * TB test, quantiferon gold (01/21/2024 10:15 AM CDT) [facility] Quantiferon TB Gold Negative Negative [facility] Comment: No interferon-gamma response to M. tuberculosis antigens was detected. Latent infection with M. tuberculosis is unlikely. A single negative result does not exclude infection with M. tuberculosis. In patients at high risk for M.tuberculosis infection, a second test should be considered in accordance with the 2017 ATS/IDSA/CDC Clinical Practice Guidelines for Diagnosis of Tuberculosis in Adults and Children [Lewinsohn ROSE et. al. Clin. Infect. Dis. 2017;64(2):111-115]. The reference range for the 'TB1 Ag minus Nil Result' and 'TB2 Ag minus Nil Result' is an Interferon-gamma level <0.35 IU/mL. TB-Nil 0.00 IUnits/mL [facility] TB2-Nil 0.01 IUnits/mL [facility] Mitogen-Nil >10.00 IUnits/mL [facility] NIL 0.02 IUnits/mL [facility] Comment: Test Performed by: [facility] [address] [place] [address] Insole Tack Puller Hand: Henry Radford Ph.D.; CLIA# [id number] Blood 01/21/2024 10:1 5 AM CDT 01/21/2024 10:35 AM CDT us Negrito Amaya MD LAB BLOOD ORDERABLES Trina l Result DARA [address] [place] [address] Department [place] [address] [facility] * (ABNORMAL) Hepatitis C antibody Blood (11/02/2023 8:16 PM CDT) Pathologist [facility] Hep C Ab Reactive( A) Nonreactive Comment: Critical result called to and read back by Janis Bustillos (RN) on 11/03/2023 08:22:23 CDT to Letiita Moon. Interpretive Data Nonreactive: Antibodies to HCV not detected. Does NOT exclude the possibility of recent exposure to HCV. Equivocal: Equivocal for HCV antibodies. Supplemental molecular testing will be automatically performed to determine infection status in accordance with current CDC screening recommendations. Reactive: Positive for HCV antibodies. This may represent current or past HCV infection. Supplemental molecular testing will be automatically performed to determine current infection status in accordance with current CDC screening recommendations. Interpretive data was last revised on 2019. Blood 11/02/2023 8:16 PM CDT 11/02/2023 8:16 PM CDT us Bhavesh Mariano MD LAB MICROBIOLOGY - GENERAL ORDERABLES Final Result [facility] [address] [place] [address] * Hemoglobin A1c (11/02/2023 8:03 PM CDT) Hgb A1C 4.7 4.0 - 5.6 % Estimated Average Glucose 88 mg/dL [facility] Comment: The ADA recommends reporting an estimated Average Glucose (eAG) with all Hemoglobin A1c results using the equation derived from a study of 507 normal and diabetic adults. Minority populations were underrepresented and children were not included. (Diabetes Care 31:4818-2575, 2008). The eAG is not equivalent to a fasting glucose. Blood 11/02/2023 8:03 PM CDT 11/02/2023 8:03 PM CDT us Bhavesh Mariano MD LAB BLOOD ORDERAB LES Final Result [facility] [address] Department of Laboratories [place] [id number] * Lipid panel (11/02/2023 8:03 PM CDT) Cholesterol 189 30 - 199 mg/dL Comment: Interpretive Data Ages < or = 19 years Acceptable: <170 mg/dL Borderline high: 170-199 mg/dL High: >or= 200 mg/dL Ages > or = 20 years Desirable: <200 mg/dL Borderline high: 200-239 mg/dL High: >or= 240 mg/dL Literature References: 1. Expert Panel on Integrated Guidelines for Cardiovascular Health and Risk Reduction in Children and Adolescents. Pediatrics 2011;128:S213 2. NCEP Expert Panel. Circulation 2004;110:227 Current Interpretive Data was last revised on 2018. Triglycerides 79 <=149 mg/dL [facility] Comment: Interpretive Data Ages < or = 9 years Acceptable: <75 mg/dL Borderline high: 75-99 mg/dL High: >or= 100 mg/dL Ages 10 to 20 years Acceptable: <90 mg/dL Borderline high: 90-129 mg/dL High: >or= 130 mg/dL Ages > or = 20 years Desirable: <150 mg/dL Borderline high: 150-199 mg/dL High: 200-499 mg/dL Very high: >or= 499 mg/dL Literature References: 1. Expert Panel on Integrated Guidelines for Cardiovascular Health and Risk Reduction in Children and Adolescents. Pediatrics 2011;128:S213 2. NCEP Expert Panel. Circulation 2004;110:227 Current Interpretive Data was last revised on 2018. HDL 55 >=40 mg/dL [facility] Comment: Interpretive Data Ages < or = 19 years Acceptable: >45 mg/dL Borderline low: 40-45 mg/dL Low: <40 mg/dL Ages > or = 20 years Desirable: >or= 60 mg/dL Low: <40 mg/dL Literature References: 1. Expert Panel on Integrated Guidelines for Cardiovascular Health and Risk Reduction in Children and Adolescents. Pediatrics 2011;128:S213 2. NCEP Expert Panel. Circulation 2004;110:227 Current Interpretive Data was last revised on 2018. LDL, calculated 118 <=129 mg/dL [facility] Comment: Interpretive Data Ages < or = 19 years Acceptable: <110 mg/dL Borderline high: 110-129 mg/dL High: >or= 130 mg/dL Ages > or = 20 years Optimal: <100 mg/dL Near optimal: 100-129 mg/dL Borderline high: 130-159 mg/dL High: >160 mg/dL Literature References: 1. Expert Panel on Integrated Guidelines for Cardiovascular Health and Risk Reduction in Children and Adolescents. Pediatrics 2011;128:S213 2. NCEP Expert Panel. Circulation 2004;110:227 Current Interpretive Data was last revised on 2018. Non-HDL Cholesterol 134 mg/dL [facility] Comment: Interpretive Data Ages < or = 19 years Acceptable: <120 mg/dL Borderline high: 120-144 mg/dL High: >145 mg/dL Ages > or = 20 years When triglycerides are >200 mg/dL, Non-HDL cholesterol is a secondary target of therapy with treatment goals that are 30 mg/dL greater than the LDL cholesterol target. Literature References: 1. Expert Panel on Integrated Guidelines for Cardiovascular Health and Risk Reduction in Children and Adolescents. Pediatrics 2011;128:S213 2. NCEP Expert Panel. Circulation 2004;110:227 Current Interpretive Data was last revised on 2018. Chol/HDL ratio 3 DARA SCHWARTZ Blood 11/02/2023 8:03 PM CDT 11/02/2023 8:03 PM CDT us Bhavesh Mariano MD LAB BLOOD ORDERAB LES Final Result Performing Organization Address [facility] Co de Phone Number DRAA SCHWARTZ [phone] [address] [facility] [address] [place] [address] * (ABNORMAL) Hepatitis A antibody, total Blood (11/02/2023 7:48 PM CDT) Hep A total Reactive( A) Nonreactive Comment:Testing performed by : [facility], [address] [place]., [address] Blood 11/02/2023 7:48 PM CDT 11/03/2023 10:02 AM CDT Bhavesh Mariano MD LAB MICROBIOLOGY - GENERAL ORDERABLES Final Result Performing Organization Address [facility] Co de Phone Number ANTONIETTAELLEN SCHWARTZ [phone] [address] [facility] [address] [place] [address] * RPR Blood (11/02/2023 7:48 PM CDT) RPR Nonreactive Nonreactive Blood 11/02/2023 7:48 PM CDT 11/03/2023 10:45 AM CDT Bhavesh Mariano MD LAB MICROBIOLOGY - GENERAL ORDERABLES Final Result Performing Organization Address [facility] Co de Phone Number ANTONIETTAELLEN [phone] [address] [facility] [address] [place] [address] * (ABNORMAL) Urinalysis reflex to microscopic and culture Urine (03/12/2023 1:13 AM CDT) Color, ur Yellow Yellow Clarity, ur Clear Clear [facility] Specific gravity, ur 1.009 1.003 - 1.030 [facility] pH, urine 5.0 DARA Comment: Interpretive Data U rine pH is affected by diet, medications, systemic acid-base disturbances, and renal tubular function. pH may affect urinary stone formation. For example, urine pH below 6.0 may help reduce the tendency for calcium phosphate stones and pH greater than 6.0 may reduce the tendency for uric acid stone formation. Source: [facility] Current Interpretive Data was last revised on 2017 Protein, ur ql 3+(A) Negative [facility] Glucose, ur ql Negative Negative [facility] Ketones, ur Negative Negative [facility] Bilirubin, ur Negative Negative [facility] Blood, ur 3+(A) Negative [facility] Urobilinogen, ur <2.0 <2.0 mg/dL [facility] Nitrite, ur Negative Negative [facility] Leukocyte esterase, ur 1+(A) Negative [facility] UA reflex comment Reflex to microscopic UA will be performed. [facility] Urine 03/12/2023 1:13 AM CDT 03/12/2023 1:27 AM CDT us Trey Pritchett MD LAB MICROBIOLOGY - GENERAL O RDERABLES Final Result Performing Organization Address City/State/[facility] Co de Phone Number DARA [address] [facility] Department [place] [address] from Last 3 Months or Most Recently Relevant to Health Maintenance Insurance [facility] MEDICARE ADVANTAGE [facility] Address: [facility] [address] [place] [address] [facility] MEDICARE ADVANTAGE [facility] MEDICARE Address: [address] [address] [place] [address] IDPA IDPA [facility] MEDICARE ADVANTAGE [facility] MEDICARE Address: [address] [address] [place] [address] Advance Directives For more information, please contact: [phone] Documents on File Type Date Recorded Patient Director Index Expl anation Power of Patrol Judge 06/23/2021 4:27 PM * Full Code (Latest Code Status on File) Date Activated Date Inactivated Comments 04/08/2024 11:08 AM 04/19/2024 10:02 PM * Full Code Date Activated Date Inactivated Comments 03/09/2024 9:05 AM 03/14/2024 10:25 PM * Full Code Date Activated Date Inactivated Comments 01/20/2024 9:29 PM 02/02/2024 4:33 PM * Full Code Date Activated Date Inactivated Comments 10/11/2023 1:01 AM 10/15/2023 11:27 PM * Full Code Date Activated Date Inactivated Comments 08/29/2023 6:40 PM 09/01/2023 5:27 PM Care Teams Vascular Technician Relationship Specialty Start Date End Date Idris Sanchez MD [address] [address] PCP - General Family Practice 05/18/24 Matteo Brooks MD [address] [facility], [address] [address] Medical Oncologist/Straightening Press Operator Helper Medical Oncology 03/31/23 Gerson Keith MD [address] [facility], [address] [address] Consulting Physician Nephrology 05/07/23 Cassie Márquez MD [address] [facility] [place] [address] Consulting Physician Family Medicine 06/25/23 Seth Henderson IV, MD [address] [place] [phone] Consulting Physician General Surgery 10/21/23 Seth Henderson IV, MD [address] [place] [address] [phone] Consulting Physician General Surgery 10/21/23 David Gorman MD [address] [place] [address] Radiation Oncologist Radiation Oncology 10/21/23 Blayne Sepulveda MD [address] [place] [address] [phone] Consulting Physician General Surgery 03/10/24 Gerson Forrester DO [address] [place] [address] [phone] Consulting Physician General Surgery 03/14/24
--- OUTSIDE RECORDS SUMMARY | 2024-08-19 21:16 | XMS_ITS | Encounter Summary ---
Author Organization [facility] Address [address] [place] [address] Care Team Providers Care Link Cutter Name Role Phone Matteo Brooks MD Unavailable [phone] Gerson Keith MD Unavailable Cassie Márquez MD Unavailable Beatriz TO MD, Seth Vasquez Unavailable Beatriz TO MD, Lyman Lansing Unavailable David Gorman MD Unavailable [phone] Blayne Sepulveda MD Unavailable Gerson Forrester DO Unavailable [phone] Idris Sanchez MD Primary Care Provi simba Encounter Details Date Type Department Care Team (Late st Contact Info) Description 08/01/2024 Results Follow-Up [facility] at [address] [address] Laina Yancey PA [address] [place] [address] [address] [place] [address] Social History Tobacco Use Types Packs/Day Years Used Date Smoking Tobacco: Some Days Cigarettes 0.3 10 Passive Smoke Exposure: Never Smokeless Tobacco: Never Comments:Last cigarette 04/24 0 Alcohol Use Standard Drinks/Week Comments Not Currently 0 (1 standard drink = 0.6 oz pur e alcohol) [facility] Utilities Answer Date Recorded In the past 12 months has th e electric, gas, oil, or water company threatened to shut off services in your [...] often do you attend chur ch or yazdanism services? Never 04/11/2024 Do you belong to any clubs o r organizations such as mosque groups, unions, fraternal or athletic groups, or [...] place to sleep or slept in a residential (including now)? No 08/30/2023 PHQ-9 Answer Date [...] any time in the past 12 m onths, were you homeless or living in a residential (including now)? No 04/11/2024 Personal Safety Answer Date Recorded Have you ever been in or are you currently in a harmful physical or emotional relationship or is someone making you feel afraid or unsafe? 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 Gender Identity Not on file Sexual Orientation Not on file documented as of this encounter Plan of Treatment Upcoming Encounters Date Type Department Care Team (Latest Contact Info) Description 10/05/2024 7:30 AM CDT Hospital Encounter [facility] [place] [address] [place] [id number] Seth Henderson IV, MD [address] [place] [phone] 10/05/2024 7:30 AM CDT - 10/05/2024 9:00 AM CDT Surgery [facility] [place] [address] [place] [address] Seth Henderson IV, MD [address] [place] [address] [phone] RECTAL EXAM UNDER ANESTHESIA WITH EXCISION ANAL MASS Scheduled Procedures Name Priority Associated Diagnoses Date/Ti me HEMORRHOIDECTOMY ANAL CANCER 10/05/2024 7:30 AM CDT COLONOSCOPY ANAL CANCER 10/05/2024 7:30 AM CDT documented as of this encounter Visit Diagnoses Not on filedocumented in this encounter Additional Health Concerns Infection Onset Date Last Indicated Resolved Time RSV, droplet 07/28/2024 07/28/2024 08/04/2024 3:05 AM CDT documented as of this encounter Care Teams Link Cutter Relationship Specialty Start Date End Date Idris Sanchez MD [address] [address] PCP - General Family Practice 05/18/24 Matteo Brooks MD [address] [facility], [address] [address] Medical Oncologist/Sdv Pilot/Navigator/Dds Operator Medical Oncology 03/31/23 Gerson Keith MD [address] [facility], [address] [address] Consulting Physician Nephrology 05/07/23 Cassie Márquez MD [address] [place] [address] Consulting Physician Family Medicine 06/25/23 Seth Henderson IV, MD [address] [place] [phone] Consulting Physician General Surgery 10/21/23 Seth Henderson IV, MD [address] [place] [address] [phone] Consulting Physician General Surgery 10/21/23 David Gorman MD [address] [place] [address] [phone] Radiation Oncologist Radiation Oncology 10/21/23 Blayne Sepulveda MD [address] [place] [address] [phone] Consulting Physician General Surgery 03/10/24 Gerson Forrester DO [address] [place] [address] [phone] Consulting Physician General Surgery 03/14/24 documented as of this encounter
--- OUTSIDE RECORDS SUMMARY | 2024-08-19 21:16 | XMS_ITS ---
Author Organization [facility] ([facility]) Address [address] [place] [id number] Care Team Providers Care Supervisor Computer Operations Name Role Phone Unavailable Unavailable Unavailable Allergies, Adverse Reactions, Alerts Allergy Name Allergy Type Status Severity Reaction(s) Onset Date Inactive Date Treating Clinician Comments No Known Allergies Allergy Active 2023-02 15:34:3 5 Medications Ordered Medication Name Filled Medication Name Start Date Stop Date Current Medication? Ordering Clinician Indication Dosage Frequency Signature (SIG) Comments Components Mircera 07-06 06:00: 00 Yes [id number] Number of Repeats Allowed: Frequency: JOSR dosing, every two weeks Senna 2023-05 20:19: 57 Yes Number of Repeats Allowed: Frequency: One time a day Venofer 2023-05 06:00: 00 Yes [id number] Number of Repeats Allowed: Frequency: One time a weekDosesO rdered: Maintenanc e Dose 50 Milligram Route: Intravenou s cloNIDine ER 2023-05 13:41: 22 Yes Number of Repeats Allowed: Frequency: Three times a day ONS [facility] 2023-05 0- 05:00: 00 Yes [id number] Number of Repeats Allowed: Frequency: Every Dialysis Treatment traZODone HCl 02-02 16:51: 10 Yes Number of Repeats Allowed: Frequency: Once a day, at bedtime Minoxidil 02-02 16:49: 41 Yes Number of Repeats Allowed: Frequency: Two times a day Coreg 02-02 16:47: 57 Yes Number of Repeats Allowed: Frequency: Two times a day Albuterol Sulfate HFA 02-02 16:45: 00 Yes Number of Repeats Allowed: Frequency: As needed Triamcinolo ne 01-13 17:56: 34 Yes Number of Repeats Allowed: Frequency: As needed Cyclobenzap rine HCl 01-13 17:55: 58 Yes Number of Repeats Allowed: Frequency: Two times a day Prezcobix 01-13 17:53: 57 Yes Number of Repeats Allowed: Frequency: One time a day Folic Acid 01-13 17:52: 42 Yes Number of Repeats Allowed: Frequency: One time a day Entecavir 01-13 17:52: 13 Yes Number of Repeats Allowed: Frequency: Every Wednesday Doxazosin Mesylate 10-21 16:57: 47 Yes Number of Repeats Allowed: Frequency: Every evening D3 10-21 16:56: 24 Yes Number of Repeats Allowed: Frequency: One time a day amLODIPine Besylate 10-21 16:54: 53 Yes Number of Repeats Allowed: Frequency: One time a day Sulfamethox azole-Trime thoprim 10-21 16:53: 55 Yes Number of Repeats Allowed: Frequency: Three times a week on Wednesday, Wednesday and Wednesday Sertraline HCl 10-21 16:51: 11 Yes Number of Repeats Allowed: Frequency: One time a day Losartan Potassium 09-16 18:37: 05 Yes Number of Repeats Allowed: Frequency: One time a day heparin sodium, porcine 2022-05 06:00: 00 Yes [id number] Number of Repeats Allowed: Frequency: Every Dialysis TreatmentD osesOrdere d: Post CVC Instillati on 2200 Units 1:1000 Units/mLRo [place]: Intracathe terDosesOr dered: Post CVC Instillati on 2300 Units 1:1000 Units/mLRo [place]: Intracathe ter Rukobia 2022-05 16:37: 56 Yes Number of Repeats Allowed: Frequency: Two times a day Tivicay 2022-05 16:37: 10 Yes Number of Repeats Allowed: Frequency: Two times a day Oxygen 2022-05 15:45: 43 Yes [id number] Number of Repeats Allowed: Frequency: As needed ondansetron hydrochlori de 2022-05 15:45: 34 Yes [id number] Number of Repeats Allowed: Frequency: Every 4 hours as needed Normal Saline Solution 0.9% NaCl 2022-05 15:45: 21 Yes [id number] Number of Repeats Allowed: Frequency: As needed diphenhydra mine hydrochlori de 2022-05 15:45: 10 Yes [id number] Number of Repeats Allowed: Frequency: Every 6 hours as needed diphenhydra mine hydrochlori de 2022-05 15:44: 40 Yes [id number] Number of Repeats Allowed: Frequency: Every 4 hours as needed clonidine 2022-05 15:44: 30 Yes [id number] Number of Repeats Allowed: Frequency: Every 4 hours as needed Antacid Extra Strength 2022-05 15:44: 11 Yes [id number] Number of Repeats Allowed: Frequency: Every 4 hours as needed acetaminoph en 2022-05 15:44: 01 Yes [id number] Number of Repeats Allowed: Frequency: Every 4 hours as needed heparin sodium, porcine 2022-05 15:42: 47 Yes [id number] Number of Repeats Allowed: Frequency: Every Dialysis TreatmentD osesOrdere d: Hourly Dose 600 Units/Hr 1:1000 Units/mLRo [place]: Intravenou s heparin sodium, porcine 2022-05 15:42: 47 Yes [id number] Number of Repeats Allowed: Frequency: Every Dialysis TreatmentD osesOrdere d: Loading Dose 500 Units 1:1000 Units/mLRo [place]: Intravenou s Problems This patient has no known problems. Procedures Procedure Date / Time Performed Performing Clinician Sheridan ce Details Central Venous Catheter (CVC) 2023-03-12 05:00:00 Access Surgeon DYLLAN SAHU ([id number]),[place], [place] Access Site Chest (Right) Access Use Start Date 2023-03-12 05:00:0 0 DIALYSIS TREATMENT INFORMATION Conventional Hemodialysis Date Type Treatment Start Date Treatment End Date Pre-Treatment Vitals Post-Treatment Vitals Weight Gain BFR DFR Actual UF Dialysis Access August 18, 2024 In-Ce nter Hemod ialys is Treat ment 2024-08-18 T16:12:20. 000Z 2024-08-18 T20:06:20. 000Z BP Sitting (Pre-Dialysis) 153/89 mmHg BP Sitting (Post-D ialysis ) 160/ 94 mmHg Sitting Heart Rate Pre-Dialysis 71 BPM BP Standing (Post-Dialysis) 140/92 mmHg Temperature Pre-Dialysis 97.5 degF Sitting Heart Ra te Post-Dialysis 79 BPM Standing Heart Rate Post-Elva lysis 87 BPM Temperature Post-Dialysis 97 .2 degF August 16, 2024 In-Center Hemodialysis Treatment 1449-43-73O64:19:48.000Z 7727-84-79I19:09:47.000Z BP Sitting (Pre-Dialysis) 136/105 mmHg BP Sitting (Post-Dialysis) 166/101 mmHg Concurrent Access: falseCentral Venous Catheter (CVC) Chest (Right) Arterial Sitting Heart Rate Pre-Dialysis 52 BPM BP Standing (Post-Dialysis) 126/88 mmHg Temperature Pre-Dialysis 97.7 degF Sitting Heart Ra te Post-Dialysis 86 BPM Standing Heart Rate Post-Elva lysis 86 BPM Temperature Post-Dialysis 97 .4 degF August 14, 2024 In-Center Hemodialysis Treatment 0350-35-57D48:59:15.000Z 1256-68-42A99:52:15.000Z BP Sitting (Pre-Dialysis) 161/94 mmHg BP Sitting (Post-Dialysis) 166/99 mmHg Concurrent Access: falseCentral Venous Catheter (CVC) Chest (Right) Arterial Sitting Heart Rate Pre-Dialysis 62 BPM BP Standing (Post-Dialysis) 137/79 mmHg Temperature Pre-Dialysis 97.7 degF Sitting Heart Ra te Post-Dialysis 74 BPM Standing Heart Rate Post-Elva lysis 83 BPM Temperature Post-Dialysis 97 .4 degF August 11, 2024 In-Center Hemodialysis Treatment 8466-82-61B06:49:27.000Z 6379-53-64S38:52:26.000Z BP Sitting (Pre-Dialysis) 167/110 mmHg BP Sitting (Post-Dialysis) 137/68 mmHg Concurrent Access: falseCentral Venous Catheter (CVC) Chest (Right) Arterial Sitting Heart Rate Pre-Dialysis 75 BPM Sitting H eart Rate Post-Dialysis 72 BPM Temperature Pre-Dialysis 97.2 degF Temperature Post -Dialysis 97.8 degF August 09, 2024 In-Center Hemodialysis Treatment 9021-46-05E86:40:54.000Z 3986-22-35T55:13:54.000Z BP Sitting (Pre-Dialysis) 150/89 mmHg BP Sitting (Post-Dialysis) 134/77 mmHg Concurrent Access: falseCentral Venous Catheter (CVC) Chest (Right) Arterial Sitting Heart Rate Pre-Dialysis 72 BPM BP Standing (Post-Dialysis) 122/64 mmHg Temperature Pre-Dialysis 97.2 degF Sitting Heart Ra te Post-Dialysis 74 BPM Standing Heart Rate Post-Elva lysis 81 BPM Temperature Post-Dialysis 97 .6 degF August 07, 2024 In-Center Hemodialysis Treatment 0918-48-64L09:02:22.000Z 5450-59-22O41:01:21.000Z BP Sitting (Pre-Dialysis) 173/100 mmHg BP Sitting (Post-Dialysis) 164/100 mmHg Concurrent Access: falseCentral Venous Catheter (CVC) Chest (Right) Arterial Sitting Heart Rate Pre-Dialysis 66 BPM BP Standing (Post-Dialysis) 125/82 mmHg Temperature Pre-Dialysis 97.3 degF Sitting Heart Ra te Post-Dialysis 64 BPM Standing Heart Rate Post-Elva lysis 82 BPM Temperature Post-Dialysis 97 .4 degF August 04, 2024 In-Center Hemodialysis Treatment 6340-85-78K37:26:40.000Z 2236-82-22P69:12:39.000Z BP Sitting (Pre-Dialysis) 111/80 mmHg BP Sitting (Post-Dialysis) 148/78 mmHg Concurrent Access: falseCentral Venous Catheter (CVC) Chest (Right) Arterial Sitting Heart Rate Pre-Dialysis 58 BPM BP Standing (Post-Dialysis) 161/86 mmHg Temperature Pre-Dialysis 97.3 degF Sitting Heart Ra te Post-Dialysis 100 BPM Standing Heart Rate Post-Elva lysis 81 BPM August 02, 2024 In-Center Hemodialysis Treatment 4031-75-20I38:34:07.000Z 5576-66-95Z39:17:06.000Z BP Sitting (Pre-Dialysis) 165/90 mmHg BP Sitting (Post-Dialysis) 137/96 mmHg Concurrent Access: falseCentral Venous Catheter (CVC) Chest (Right) Arterial Sitting Heart Rate Pre-Dialysis 76 BPM Sitting H eart Rate Post-Dialysis 96 BPM Temperature Pre-Dialysis 98 degF Temperature Post -Dialysis 97.4 degF July 31, 2024 In-Center Hemodialysis Treatment 7784-17-30Y87:20:34.000Z 7817-62-67L40:08:34.000Z BP Sitting (Pre-Dialysis) 135/93 mmHg BP Sitting (Post-Dialysis) 186/93 mmHg Concurrent Access: falseCentral Venous Catheter (CVC) Chest (Right) Arterial Sitting Heart Rate Pre-Dialysis 94 BPM Sitting H eart Rate Post-Dialysis 85 BPM Temperature Pre-Dialysis 98 degF Temperature Post -Dialysis 97.4 degF July 28, 2024 In-Center Hemodialysis Treatment 4563-13-12W87:22:02.000Z 9532-15-27K80:17:01.000Z BP Sitting (Pre-Dialysis) 156/91 mmHg BP Sitting (Post-Dialysis) 148/90 mmHg Concurrent Access: falseCentral Venous Catheter (CVC) Chest (Right) Arterial Sitting Heart Rate Pre-Dialysis 71 BPM BP Standing (Post-Dialysis) 151/93 mmHg Temperature Pre-Dialysis 97.4 degF Sitting Heart Ra te Post-Dialysis 70 BPM Standing Heart Rate Post-Elva lysis 84 BPM Temperature Post-Dialysis 97 .4 degF July 26, 2024 In-Center Hemodialysis Treatment 8450-65-19N40:04:29.000Z 3791-39-79X30:01:29.000Z BP Sitting (Pre-Dialysis) 162/98 mmHg BP Sitting (Post-Dialysis) 146/92 mmHg Concurrent Access: falseCentral Venous Catheter (CVC) Chest (Right) Arterial Sitting Heart Rate Pre-Dialysis 63 BPM BP Standing (Post-Dialysis) 119/79 mmHg Temperature Pre-Dialysis 97.2 degF Sitting Heart Ra te Post-Dialysis 72 BPM Standing Heart Rate Post-Elva lysis 83 BPM Temperature Post-Dialysis 97 .4 degF July 24, 2024 In-Center Hemodialysis Treatment 4461-14-21V87:36:00.000Z 2276-88-53R80:43:56.000Z BP Sitting (Pre-Dialysis) 147/85 mmHg BP Sitting (Post-Dialysis) 138/89 mmHg Concurrent Access: falseCentral Venous Catheter (CVC) Chest (Right) Arterial Sitting Heart Rate Pre-Dialysis 70 BPM Sitting H eart Rate Post-Dialysis 82 BPM Temperature Pre-Dialysis 97 degF Temperature Post -Dialysis 98.1 degF July 21, 2024 In-Center Hemodialysis Treatment 2616-66-87E15:58:08.000Z 2706-10-61M23:37:08.000Z BP Sitting (Pre-Dialysis) 175/97 mmHg BP Sitting (Post-Dialysis) 138/88 mmHg Concurrent Access: falseCentral Venous Catheter (CVC) Chest (Right) Arterial Sitting Heart Rate Pre-Dialysis 70 BPM BP Standing (Post-Dialysis) 124/70 mmHg Temperature Pre-Dialysis 97.7 degF Sitting Heart Ra te Post-Dialysis 70 BPM Standing Heart Rate Post-Elva lysis 82 BPM Temperature Post-Dialysis 97 degF July 19, 2024 In-Center Hemodialysis Treatment [id number]:02:31.000Z 4454-90-01L40:33:30.000Z BP Sitting (Pre-Dialysis) 155/89 mmHg BP Sitting (Post-Dialysis) 170/103 mmHg Concurrent Access: falseCentral Venous Catheter (CVC) Chest (Right) Arterial Sitting Heart Rate Pre-Dialysis 66 BPM BP Standing (Post-Dialysis) 145/90 mmHg Temperature Pre-Dialysis 97.3 degF Sitting Heart Ra te Post-Dialysis 72 BPM Standing Heart Rate Post-Elva lysis 81 BPM Temperature Post-Dialysis 97 .1 degF July 17, 2024 In-Center Hemodialysis Treatment 7541-00-84Z05:06:58.000Z 1234-97-76Z42:11:58.000Z BP Sitting (Pre-Dialysis) 150/95 mmHg BP Sitting (Post-Dialysis) 126/75 mmHg Concurrent Access: falseCentral Venous Catheter (CVC) Chest (Right) Arterial Sitting Heart Rate Pre-Dialysis 73 BPM BP Standing (Post-Dialysis) 156/93 mmHg Temperature Pre-Dialysis 97.1 degF Sitting Heart Ra te Post-Dialysis 79 BPM Standing Heart Rate Post-Elva lysis 68 BPM Temperature Post-Dialysis 97 .3 degF July 14, 2024 In-Center Hemodialysis Treatment 6716-91-23S83:28:16.000Z 5071-37-86J07:19:15.000Z BP Sitting (Pre-Dialysis) 144/93 mmHg BP Sitting (Post-Dialysis) 151/85 mmHg Concurrent Access: falseCentral Venous Catheter (CVC) Chest (Right) Arterial Sitting Heart Rate Pre-Dialysis 65 BPM BP Standing (Post-Dialysis) 139/77 mmHg Temperature Pre-Dialysis 97.5 degF Sitting Heart Ra te Post-Dialysis 70 BPM Standing Heart Rate Post-Elva lysis 84 BPM July 12, 2024 In-Center Hemodialysis Treatment 2383-89-24L87:30:00.000Z 1894-73-22D81:38:43.000Z BP Sitting (Pre-Dialysis) 145/78 mmHg BP Sitting (Post-Dialysis) 156/91 mmHg Concurrent Access: falseCentral Venous Catheter (CVC) Chest (Right) Arterial Sitting Heart Rate Pre-Dialysis 68 BPM Sitting H eart Rate Post-Dialysis 78 BPM Temperature Pre-Dialysis 97.3 degF Temperature Post -Dialysis 98 degF July 10, 2024 In-Center Hemodialysis Treatment 8259-06-65A16:43:11.000Z 2634-84-56R00:38:10.000Z BP Sitting (Pre-Dialysis) 163/95 mmHg BP Sitting (Post-Dialysis) 162/96 mmHg Concurrent Access: falseCentral Venous Catheter (CVC) Chest (Right) Arterial Sitting Heart Rate Pre-Dialysis 64 BPM Sitting H eart Rate Post-Dialysis 72 BPM Temperature Pre-Dialysis 97.2 degF Temperature Post -Dialysis 97.5 degF July 07, 2024 In-Center Hemodialysis Treatment 7469-05-80H02:27:48.000Z 1234-63-31F86:16:48.000Z BP Sitting (Pre-Dialysis) 135/86 mmHg BP Sitting (Post-Dialysis) 145/71 mmHg Concurrent Access: falseCentral Venous Catheter (CVC) Chest (Right) Arterial Sitting Heart Rate Pre-Dialysis 72 BPM BP Standing (Post-Dialysis) 123/77 mmHg Temperature Pre-Dialysis 97.5 degF Sitting Heart Ra te Post-Dialysis 86 BPM Standing Heart Rate Post-Elva lysis 93 BPM Temperature Post-Dialysis 97 .4 degF July 05, 2024 In-Center Hemodialysis Treatment 2653-06-32M94:17:00.000Z 0455-58-45C96:15:15.000Z BP Sitting (Pre-Dialysis) 174/101 mmHg BP Sitting (Post-Dialysis) 152/91 mmHg Concurrent Access: falseCentral Venous Catheter (CVC) Chest (Right) Arterial Sitting Heart Rate Pre-Dialysis 83 BPM Sitting H eart Rate Post-Dialysis 61 BPM Temperature Pre-Dialysis 97.1 degF Temperature Post -Dialysis 98 degF July 03, 2024 In-Center Hemodialysis Treatment 2824-94-13T80:41:43.000Z 5370-63-67D22:39:43.000Z BP Sitting (Pre-Dialysis) 182/108 mmHg BP Sitting (Post-Dialysis) 164/98 mmHg Concurrent Access: falseCentral Venous Catheter (CVC) Chest (Right) Arterial Sitting Heart Rate Pre-Dialysis 72 BPM Sitting H eart Rate Post-Dialysis 73 BPM Temperature Pre-Dialysis 97.3 degF Temperature Post -Dialysis 98.1 degF June 30, 2024 In-Center Hemodialysis Treatment 8133-09-42E60:07:03.000Z 3080-66-55K36:56:03.000Z BP Sitting (Pre-Dialysis) 148/96 mmHg BP Sitting (Post-Dialysis) 136/85 mmHg Concurrent Access: falseCentral Venous Catheter (CVC) Chest (Right) Arterial Sitting Heart Rate Pre-Dialysis 66 BPM Sitting H eart Rate Post-Dialysis 72 BPM Temperature Pre-Dialysis 97.3 degF Temperature Post -Dialysis 98 degF June 28, 2024 In-Center Hemodialysis Treatment 6972-52-73D75:20:31.000Z 5790-26-37E23:13:30.000Z BP Sitting (Pre-Dialysis) 156/94 mmHg BP Sitting (Post-Dialysis) 160/98 mmHg Concurrent Access: falseCentral Venous Catheter (CVC) Chest (Right) Arterial Sitting Heart Rate Pre-Dialysis 68 BPM BP Standing (Post-Dialysis) 136/85 mmHg Temperature Pre-Dialysis 97.3 degF Sitting Heart Ra te Post-Dialysis 74 BPM Standing Heart Rate Post-Elva lysis 83 BPM Temperature Post-Dialysis 97 .4 degF June 26, 2024 In-Center Hemodialysis Treatment 8646-91-01Z59:20:59.000Z 1314-98-60D24:18:59.000Z BP Sitting (Pre-Dialysis) 158/87 mmHg BP Sitting (Post-Dialysis) 163/94 mmHg Concurrent Access: falseCentral Venous Catheter (CVC) Chest (Right) Arterial Sitting Heart Rate Pre-Dialysis 54 BPM BP Standing (Post-Dialysis) 140/77 mmHg Temperature Pre-Dialysis 97.1 degF Sitting Heart Ra te Post-Dialysis 66 BPM Standing Heart Rate Post-Elva lysis 76 BPM Temperature Post-Dialysis 97 .1 degF June 23, 2024 In-Center Hemodialysis Treatment 4459-08-15A36:20:16.000Z 5868-82-05Q72:41:16.000Z BP Sitting (Pre-Dialysis) 161/90 mmHg BP Sitting (Post-Dialysis) 165/95 mmHg Concurrent Access: falseCentral Venous Catheter (CVC) Chest (Right) Arterial Sitting Heart Rate Pre-Dialysis 60 BPM BP Standing (Post-Dialysis) 139/84 mmHg Temperature Pre-Dialysis 97.1 degF Sitting Heart Ra te Post-Dialysis 70 BPM Standing Heart Rate Post-Elva lysis 75 BPM Temperature Post-Dialysis 97 .5 degF June 21, 2024 In-Center Hemodialysis Treatment 6908-68-67W36:39:00.000Z 1394-41-65A41:31:43.000Z BP Sitting (Pre-Dialysis) 134/93 mmHg BP Sitting (Post-Dialysis) 145/86 mmHg Concurrent Access: falseCentral Venous Catheter (CVC) Chest (Right) Arterial Sitting Heart Rate Pre-Dialysis 58 BPM BP Standing (Post-Dialysis) 120/74 mmHg Temperature Pre-Dialysis 98.7 degF Sitting Heart Ra te Post-Dialysis 66 BPM Standing Heart Rate Post-Elva lysis 76 BPM Temperature Post-Dialysis 97 .4 degF June 19, 2024 In-Center Hemodialysis Treatment 5101-18-48X94:39:11.000Z 8955-82-79F57:30:10.000Z BP Sitting (Pre-Dialysis) 158/96 mmHg BP Sitting (Post-Dialysis) 125/74 mmHg Concurrent Access: falseCentral Venous Catheter (CVC) Chest (Right) Arterial Sitting Heart Rate Pre-Dialysis 74 BPM Sitting H eart Rate Post-Dialysis 80 BPM Temperature Pre-Dialysis 97.7 degF Temperature Post -Dialysis 98 degF June 16, 2024 In-Center Hemodialysis Treatment 7626-06-71H25:45:22.000Z 3864-77-46K05:15:22.000Z BP Sitting (Pre-Dialysis) 158/96 mmHg BP Sitting (Post-Dialysis) 154/93 mmHg Concurrent Access: falseCentral Venous Catheter (CVC) Chest (Right) Arterial Sitting Heart Rate Pre-Dialysis 64 BPM BP Standing (Post-Dialysis) 116/85 mmHg Temperature Pre-Dialysis 97.9 degF Sitting Heart Ra te Post-Dialysis 73 BPM Standing Heart Rate Post-Elva lysis 85 BPM Temperature Post-Dialysis 98 degF June 14, 2024 In-Center Hemodialysis Treatment 1426-87-46O36:21:49.000Z 2925-26-84C67:58:49.000Z BP Sitting (Pre-Dialysis) 143/86 mmHg BP Sitting (Post-Dialysis) 158/83 mmHg Concurrent Access: falseCentral Venous Catheter (CVC) Chest (Right) Arterial Sitting Heart Rate Pre-Dialysis 60 BPM BP Standi ng (Post-Dialysis) 114/83 mmHg Temperature Pre-Dialysis 98 degF Sitting Heart Ra te Post-Dialysis 74 BPM Standing Heart Rate Post-Elva lysis 78 BPM Temperature Post-Dialysis 97 .6 degF June 12, 2024 In-Center Hemodialysis Treatment 5140-24-49Q00:22:17.000Z 1007-34-87X42:09:16.000Z BP Sitting (Pre-Dialysis) 169/99 mmHg BP Sitting (Post-Dialysis) 132/67 mmHg Concurrent Access: falseCentral Venous Catheter (CVC) Chest (Right) Arterial Sitting Heart Rate Pre-Dialysis 65 BPM Sitting H eart Rate Post-Dialysis 67 BPM Temperature Pre-Dialysis 98 degF Temperature Post -Dialysis 98 degF June 09, 2024 In-Center Hemodialysis Treatment 2465-45-18B60:34:28.000Z 4587-39-48T90:10:28.000Z BP Sitting (Pre-Dialysis) 145/86 mmHg BP Sitting (Post-Dialysis) 141/79 mmHg Concurrent Access: falseCentral Venous Catheter (CVC) Chest (Right) Arterial Sitting Heart Rate Pre-Dialysis 61 BPM BP Standing (Post-Dialysis) 112/75 mmHg Temperature Pre-Dialysis 97.2 degF Sitting Heart Ra te Post-Dialysis 77 BPM Standing Heart Rate Post-Elva lysis 83 BPM Temperature Post-Dialysis 97 .1 degF June 07, 2024 In-Center Hemodialysis Treatment 8543-28-71Q72:14:00.000Z 4678-64-41B77:09:55.000Z BP Sitting (Pre-Dialysis) 161/92 mmHg BP Sitting (Post-Dialysis) 159/92 mmHg Concurrent Access: falseCentral Venous Catheter (CVC) Chest (Right) Arterial Sitting Heart Rate Pre-Dialysis 72 BPM Sitting H eart Rate Post-Dialysis 70 BPM Temperature Pre-Dialysis 97.3 degF Temperature Post -Dialysis 98 degF June 05, 2024 In-Center Hemodialysis Treatment 1594-06-54M97:35:23.000Z 4856-34-83B41:23:23.000Z BP Sitting (Pre-Dialysis) 158/76 mmHg BP Sitting (Post-Dialysis) 134/87 mmHg Concurrent Access: falseCentral Venous Catheter (CVC) Chest (Right) Arterial Sitting Heart Rate Pre-Dialysis 71 BPM Sitting H eart Rate Post-Dialysis 82 BPM Temperature Pre-Dialysis 97.2 degF Temperature Post -Dialysis 98 degF May 31, 2024 In-Center Hemodialysis Treatment 6926-63-79F63:32:02.000Z 2588-41-96B85:06:01.000Z BP Sitting (Pre-Dialysis) 150/83 mmHg BP Sitting (Post-Dialysis) 178/98 mmHg Concurrent Access: falseCentral Venous Catheter (CVC) Chest (Right) Arterial Sitting Heart Rate Pre-Dialysis 63 BPM BP Standing (Post-Dialysis) 126/82 mmHg Temperature Pre-Dialysis 97.2 degF Sitting Heart Ra te Post-Dialysis 71 BPM Standing Heart Rate Post-Elva lysis 83 BPM Temperature Post-Dialysis 97 .4 degF May 26, 2024 In-Center Hemodialysis Treatment 5754-94-06H46:15:41.000Z 7280-07-47V36:02:40.000Z BP Sitting (Pre-Dialysis) 140/91 mmHg BP Sitting (Post-Dialysis) 117/73 mmHg Concurrent Access: falseCentral Venous Catheter (CVC) Chest (Right) Arterial Sitting Heart Rate Pre-Dialysis 78 BPM Sitting H eart Rate Post-Dialysis 83 BPM Temperature Pre-Dialysis 97.2 degF Temperature Post -Dialysis 97.4 degF May 23, 2024 In-Center Hemodialysis Treatment 3753-21-56A88:27:00.000Z 3717-10-64L79:13:08.000Z BP Sitting (Pre-Dialysis) 159/89 mmHg BP Sitting (Post-Dialysis) 151/82 mmHg Concurrent Access: falseCentral Venous Catheter (CVC) Chest (Right) Arterial Sitting Heart Rate Pre-Dialysis 62 BPM Sitting H eart Rate Post-Dialysis 70 BPM Temperature Pre-Dialysis 98 degF Temperature Post -Dialysis 98 degF May 21, 2024 In-Center Hemodialysis Treatment 8067-62-66U99:02:36.000Z 1016-73-65G90:54:35.000Z BP Sitting (Pre-Dialysis) 147/86 mmHg BP Sitting (Post-Dialysis) 142/87 mmHg Concurrent Access: falseCentral Venous Catheter (CVC) Chest (Right) Arterial Sitting Heart Rate Pre-Dialysis 75 BPM Sitting H eart Rate Post-Dialysis 78 BPM Temperature Pre-Dialysis 97.3 degF Temperature Post -Dialysis 98.1 degF May 19, 2024 In-Center Hemodialysis Treatment 9842-12-75K52:43:04.000Z 4657-30-59P71:13:03.000Z BP Sitting (Pre-Dialysis) 154/93 mmHg BP Sitting (Post-Dialysis) 133/80 mmHg Concurrent Access: falseCentral Venous Catheter (CVC) Chest (Right) Arterial Sitting Heart Rate Pre-Dialysis 73 BPM Sitting H eart Rate Post-Dialysis 78 BPM Temperature Pre-Dialysis 97.2 degF Temperature Post -Dialysis 98.2 degF May 16, 2024 In-Center Hemodialysis Treatment 2840-50-15V28:56:15.000Z 5584-91-58X14:52:14.000Z BP Sitting (Pre-Dialysis) 147/86 mmHg BP Sitting (Post-Dialysis) 139/82 mmHg Concurrent Access: falseCentral Venous Catheter (CVC) Chest (Right) Arterial Sitting Heart Rate Pre-Dialysis 59 BPM Sitting H eart Rate Post-Dialysis 67 BPM Temperature Pre-Dialysis 97.2 degF Temperature Post -Dialysis 97.4 degF May 14, 2024 In-Center Hemodialysis Treatment 2166-22-49Z97:48:42.000Z 8319-81-24Q62:17:42.000Z BP Sitting (Pre-Dialysis) 156/93 mmHg BP Sitting (Post-Dialysis) 160/90 mmHg Concurrent Access: falseCentral Venous Catheter (CVC) Chest (Right) Arterial Sitting Heart Rate Pre-Dialysis 64 BPM Sitting H eart Rate Post-Dialysis 72 BPM Temperature Pre-Dialysis 97.1 degF Temperature Post -Dialysis 97.5 degF May 12, 2024 In-Center Hemodialysis Treatment 2295-02-50V85:12:10.000Z 3565-43-61G98:07:09.000Z BP Sitting (Pre-Dialysis) 136/86 mmHg BP Sitting (Post-Dialysis) 133/84 mmHg Concurrent Access: falseCentral Venous Catheter (CVC) Chest (Right) Arterial Sitting Heart Rate Pre-Dialysis 63 BPM Sitting H eart Rate Post-Dialysis 70 BPM Temperature Pre-Dialysis 97.3 degF Temperature Post -Dialysis 98.2 degF May 10, 2024 In-Center Hemodialysis Treatment 5422-74-26L31:38:00.000Z 2139-51-11M00:16:37.000Z BP Sitting (Pre-Dialysis) 146/90 mmHg BP Sitting (Post-Dialysis) 133/79 mmHg Concurrent Access: falseCentral Venous Catheter (CVC) Chest (Right) Arterial Sitting Heart Rate Pre-Dialysis 58 BPM BP Standing (Post-Dialysis) 117/68 mmHg Temperature Pre-Dialysis 97.4 degF Sitting Heart Ra te Post-Dialysis 84 BPM Standing Heart Rate Post-Elva lysis 80 BPM Temperature Post-Dialysis 97 .4 degF May 08, 2024 In-Center Hemodialysis Treatment 7871-53-34G86:36:04.000Z 5185-01-71N43:22:04.000Z BP Sitting (Pre-Dialysis) 159/97 mmHg BP Sitting (Post-Dialysis) 150/82 mmHg Concurrent Access: falseCentral Venous Catheter (CVC) Chest (Right) Arterial Sitting Heart Rate Pre-Dialysis 67 BPM Sitting H eart Rate Post-Dialysis 76 BPM Temperature Pre-Dialysis 97.1 degF Temperature Post -Dialysis 97.9 degF May 05, 2024 In-Center Hemodialysis Treatment [id number]:37:16.000Z 7210-08-82O76:16:15.000Z BP Sitting (Pre-Dialysis) 142/87 mmHg BP Sitting (Post-Dialysis) 154/89 mmHg Concurrent Access: falseCentral Venous Catheter (CVC) Chest (Right) Arterial Sitting Heart Rate Pre-Dialysis 58 BPM Sitting H eart Rate Post-Dialysis 63 BPM Standing Heart Rate Pre-Dialysis 58 BPM Temperat ure Post-Dialysis 98 degF Temperature Pre-Dialysis 97.3 degF May 03, 2024 In-Center Hemodialysis Treatment 5111-21-81W68:54:43.000Z 8138-10-30C61:49:43.000Z BP Sitting (Pre-Dialysis) 152/84 mmHg BP Sitting (Post-Dialysis) 137/83 mmHg Concurrent Access: falseCentral Venous Catheter (CVC) Chest (Right) Arterial Sitting Heart Rate Pre-Dialysis 63 BPM BP Standi ng (Post-Dialysis) 96/74 mmHg Temperature Pre-Dialysis 96.6 degF Sitting Heart Ra te Post-Dialysis 63 BPM Standing Heart Rate Post-Elva lysis 80 BPM Temperature Post-Dialysis 97 .4 degF May 01, 2024 In-Center Hemodialysis Treatment 9534-12-56J01:30:11.000Z 5075-53-75W02:31:10.000Z BP Sitting (Pre-Dialysis) 157/90 mmHg BP Sitting (Post-Dialysis) 122/73 mmHg Concurrent Access: falseCentral Venous Catheter (CVC) Chest (Right) Arterial Sitting Heart Rate Pre-Dialysis 64 BPM BP Standing (Post-Dialysis) 105/68 mmHg Temperature Pre-Dialysis 96.7 degF Sitting Heart Ra te Post-Dialysis 66 BPM Standing Heart Rate Post-Elva lysis 81 BPM April 28, 2024 In-Center Hemodialysis Treatment 4784-91-71W22:37:00.000Z 6452-48-43R08:07:35.000Z BP Sitting (Pre-Dialysis) 140/88 mmHg BP Sitting (Post-Dialysis) 124/77 mmHg Concurrent Access: falseCentral Venous Catheter (CVC) Chest (Right) Arterial BP Standing (Pre-Dialysis) 140/88 mmHg Sitti ng Heart Rate Post-Dialysis 67 BPM Sitting Heart Rate Pre-Dialysis 56 BPM Temperatu re Post-Dialysis 98.3 degF Standing Heart Rate Pre-Dialysis 56 BPM Temperature Pre-Dialysis 97.2 degF April 26, 2024 In-Center Hemodialysis Treatment 5932-77-57M20:08:28.000Z 6673-98-97L09:59:28.000Z BP Sitting (Pre-Dialysis) 148/88 mmHg BP Sitting (Post-Dialysis) 135/85 mmHg Concurrent Access: falseCentral Venous Catheter (CVC) Chest (Right) Arterial Sitting Heart Rate Pre-Dialysis 73 BPM Sitting H eart Rate Post-Dialysis 80 BPM Temperature Pre-Dialysis 97.1 degF Temperature Post -Dialysis 97.4 degF April 24, 2024 In-Center Hemodialysis Treatment 4988-89-68X12:40:24.000Z 3939-26-51B07:30:24.000Z BP Sitting (Pre-Dialysis) 136/82 mmHg BP Sitting (Post-Dialysis) 123/80 mmHg Concurrent Access: falseCentral Venous Catheter (CVC) Chest (Right) Arterial Sitting Heart Rate Pre-Dialysis 53 BPM BP Standing (Post-Dialysis) 108/68 mmHg Temperature Pre-Dialysis 97.2 degF Sitting Heart Ra te Post-Dialysis 65 BPM Standing Heart Rate Post-Elva lysis 80 BPM Temperature Post-Dialysis 98 .4 degF April 21, 2024 In-Center Hemodialysis Treatment 3909-97-00D96:40:13.000Z 9197-78-85R02:27:13.000Z BP Sitting (Pre-Dialysis) 120/62 mmHg BP Sitting (Post-Dialysis) 109/67 mmHg Concurrent Access: falseCentral Venous Catheter (CVC) Chest (Right) Arterial Sitting Heart Rate Pre-Dialysis 86 BPM Sitting H eart Rate Post-Dialysis 78 BPM Temperature Pre-Dialysis 97.2 degF Temperature Post -Dialysis 97.1 degF April 07, 2024 In-Center Hemodialysis Treatment 9596-15-68H48:31:07.000Z 5873-60-16F71:29:07.000Z BP Sitting (Pre-Dialysis) 154/86 mmHg BP Sitting (Post-Dialysis) 111/64 mmHg Concurrent Access: falseCentral Venous Catheter (CVC) Chest (Right) Arterial Sitting Heart Rate Pre-Dialysis 66 BPM Sitting H eart Rate Post-Dialysis 77 BPM Temperature Pre-Dialysis 98 degF Temperature Post -Dialysis 98 degF April 05, 2024 In-Center Hemodialysis Treatment 0544-66-24R82:49:06.000Z 4911-13-69L77:46:06.000Z BP Sitting (Pre-Dialysis) 135/91 mmHg BP Sitting (Post-Dialysis) 127/79 mmHg Concurrent Access: falseCentral Venous Catheter (CVC) Chest (Right) Arterial Sitting Heart Rate Pre-Dialysis 59 BPM Sitting H eart Rate Post-Dialysis 69 BPM Temperature Pre-Dialysis 96.8 degF Temperature Post -Dialysis 97.1 degF April 03, 2024 In-Center Hemodialysis Treatment 2944-22-76M11:07:06.000Z 1267-60-17I49:09:06.000Z BP Sitting (Pre-Dialysis) 129/78 mmHg BP Sitting (Post-Dialysis) 125/71 mmHg Concurrent Access: falseCentral Venous Catheter (CVC) Chest (Right) Arterial Sitting Heart Rate Pre-Dialysis 58 BPM Sitting H eart Rate Post-Dialysis 73 BPM Temperature Pre-Dialysis 97.2 degF Temperature Post -Dialysis 98 degF March 31, 2024 In-Center Hemodialysis Treatment 5112-10-76Y12:19:07.000Z 1388-98-05F31:11:06.000Z BP Sitting (Pre-Dialysis) 119/73 mmHg BP Sitting (Post-Dialysis) 123/78 mmHg Concurrent Access: falseCentral Venous Catheter (CVC) Chest (Right) Arterial Sitting Heart Rate Pre-Dialysis 62 BPM Sitting H eart Rate Post-Dialysis 85 BPM Temperature Pre-Dialysis 97.4 degF Temperature Post -Dialysis 97 degF March 29, 2024 In-Center Hemodialysis Treatment 6251-07-83R36:47:06.000Z 6703-17-85T36:44:06.000Z BP Sitting (Pre-Dialysis) 113/69 mmHg BP Sitting (Post-Dialysis) 132/77 mmHg Concurrent Access: falseCentral Venous Catheter (CVC) Chest (Right) Arterial Sitting Heart Rate Pre-Dialysis 61 BPM BP Standing (Post-Dialysis) 128/87 mmHg Temperature Pre-Dialysis 96.9 degF Sitting Heart Ra te Post-Dialysis 83 BPM Standing Heart Rate Post-Elva lysis 66 BPM Temperature Post-Dialysis 96 .9 degF March 27, 2024 In-Center Hemodialysis Treatment 6244-22-01J62:00:00.000Z 9103-59-11B70:58:06.000Z BP Sitting (Pre-Dialysis) 142/82 mmHg BP Sitting (Post-Dialysis) 128/73 mmHg Concurrent Access: falseCentral Venous Catheter (CVC) Chest (Right) Arterial Sitting Heart Rate Pre-Dialysis 66 BPM Sitting H eart Rate Post-Dialysis 82 BPM Temperature Pre-Dialysis 97.2 degF Temperature Post -Dialysis 97.4 degF March 24, 2024 In-Center Hemodialysis Treatment 8410-18-36I33:07:06.000Z 7164-50-47Z51:07:06.000Z BP Sitting (Pre-Dialysis) 111/71 mmHg BP Sitting (Post-Dialysis) 132/81 mmHg Concurrent Access: falseCentral Venous Catheter (CVC) Chest (Right) Arterial Sitting Heart Rate Pre-Dialysis 63 BPM Sitting H eart Rate Post-Dialysis 77 BPM Temperature Pre-Dialysis 98 degF Temperature Post -Dialysis 98 degF March 22, 2024 In-Center Hemodialysis Treatment 2730-76-64Q32:23:00.000Z 4478-78-04V68:20:06.000Z BP Sitting (Pre-Dialysis) 114/69 mmHg BP Sitting (Post-Dialysis) 125/76 mmHg Concurrent Access: falseCentral Venous Catheter (CVC) Chest (Right) Arterial Sitting Heart Rate Pre-Dialysis 53 BPM Sitting H eart Rate Post-Dialysis 78 BPM Temperature Pre-Dialysis 97.2 degF Temperature Post -Dialysis 98.5 degF March 20, 2024 In-Center Hemodialysis Treatment 4838-69-54D07:21:00.000Z 0552-71-75V80:14:00.000Z BP Sitting (Pre-Dialysis) 108/65 mmHg BP Sitting (Post-Dialysis) 134/66 mmHg Concurrent Access: falseCentral Venous Catheter (CVC) Chest (Right) Arterial BP Standing (Pre-Dialysis) 107/64 mmHg Sitting Heart Rate Post-Dialysis 71 BPM Sitting Heart Rate Pre-Dialysis 52 BPM Temperatu re Post-Dialysis 98 degF Standing Heart Rate Pre-Dialysis 73 BPM Temperature Pre-Dialysis 97.2 degF March 17, 2024 In-Center Hemodialysis Treatment 4238-47-20A10:12:07.000Z 4458-02-17J34:05:07.000Z BP Sitting (Pre-Dialysis) 100/58 mmHg BP Sitting (Post-Dialysis) 122/63 mmHg Concurrent Access: falseCentral Venous Catheter (CVC) Chest (Right) Arterial Sitting Heart Rate Pre-Dialysis 60 BPM Sitting H eart Rate Post-Dialysis 65 BPM Temperature Pre-Dialysis 97.8 degF Temperature Post -Dialysis 98.6 degF March 15, 2024 In-Center Hemodialysis Treatment 9822-16-82O62:13:59.000Z 4105-21-09H78:59:59.000Z BP Sitting (Pre-Dialysis) 113/69 mmHg BP Sitting (Post-Dialysis) 139/64 mmHg Concurrent Access: falseCentral Venous Catheter (CVC) Chest (Right) Arterial Sitting Heart Rate Pre-Dialysis 66 BPM Sitting H eart Rate Post-Dialysis 82 BPM Temperature Pre-Dialysis 97.2 degF Temperature Post -Dialysis 98 degF March 08, 2024 In-Center Hemodialysis Treatment 1029-96-77G76:07:00.000Z 9114-48-33V49:00:07.000Z BP Sitting (Pre-Dialysis) 198/92 mmHg BP Sitting (Post-Dialysis) 168/98 mmHg Concurrent Access: falseCentral Venous Catheter (CVC) Chest (Right) Arterial Sitting Heart Rate Pre-Dialysis 82 BPM Sitting H eart Rate Post-Dialysis 75 BPM Temperature Pre-Dialysis 97.6 degF March 06, 2024 In-Center Hemodialysis Treatment 5827-03-83A55:00:00.000Z 4593-61-91H85:07:11.000Z BP Sitting (Pre-Dialysis) 158/76 mmHg BP Sitting (Post-Dialysis) 119/75 mmHg Concurrent Access: falseCentral Venous Catheter (CVC) Chest (Right) Arterial Sitting Heart Rate Pre-Dialysis 67 BPM BP Standing (Post-Dialysis) 110/66 mmHg Temperature Pre-Dialysis 97.2 degF Sitting Heart Ra te Post-Dialysis 78 BPM Standing Heart Rate Post-Elva lysis 82 BPM Temperature Post-Dialysis 97 degF March 03, 2024 In-Center Hemodialysis Treatment 9398-93-68J75:55:00.000Z 0775-10-10Z34:01:07.000Z BP Sitting (Pre-Dialysis) 161/96 mmHg BP Sitting (Post-Dialysis) 124/76 mmHg Concurrent Access: falseCentral Venous Catheter (CVC) Chest (Right) Arterial Sitting Heart Rate Pre-Dialysis 73 BPM Sitting H eart Rate Post-Dialysis 75 BPM Temperature Pre-Dialysis 97.1 degF Temperature Post -Dialysis 97.9 degF March 01, 2024 In-Center Hemodialysis Treatment 6215-48-71J55:10:00.000Z 5219-54-41R50:02:06.000Z BP Sitting (Pre-Dialysis) 153/91 mmHg BP Sitting (Post-Dialysis) 123/80 mmHg Concurrent Access: falseCentral Venous Catheter (CVC) Chest (Right) Arterial Sitting Heart Rate Pre-Dialysis 71 BPM BP Standing (Post-Dialysis) 117/71 mmHg Temperature Pre-Dialysis 96.7 degF Sitting Heart Ra te Post-Dialysis 71 BPM Standing Heart Rate Post-Elva lysis 80 BPM Temperature Post-Dialysis 97 .4 degF February 28, 2024 In-Center Hemodialysis Treatment 7773-59-06R01:05:06.000Z 2583-60-38V11:00:06.000Z BP Sitting (Pre-Dialysis) 149/91 mmHg BP Sitting (Post-Dialysis) 124/72 mmHg Concurrent Access: falseCentral Venous Catheter (CVC) Chest (Right) Arterial Sitting Heart Rate Pre-Dialysis 63 BPM Sitting H eart Rate Post-Dialysis 78 BPM Temperature Pre-Dialysis 98 degF Temperature Post -Dialysis 98 degF February 25, 2024 In-Center Hemodialysis Treatment 0837-17-96V67:25:06.000Z 7777-67-24I10:26:06.000Z BP Sitting (Pre-Dialysis) 158/84 mmHg BP Sitting (Post-Dialysis) 145/90 mmHg Concurrent Access: falseCentral Venous Catheter (CVC) Chest (Right) Arterial Sitting Heart Rate Pre-Dialysis 60 BPM Sitting H eart Rate Post-Dialysis 70 BPM Temperature Pre-Dialysis 96.7 degF Temperature Post -Dialysis 97.3 degF February 23, 2024 In-Center Hemodialysis Treatment 1422-32-85X77:32:11.000Z 4196-63-51D05:45:11.000Z BP Sitting (Pre-Dialysis) 127/82 mmHg BP Sitting (Post-Dialysis) 135/80 mmHg Concurrent Access: falseCentral Venous Catheter (CVC) Chest (Right) Arterial Sitting Heart Rate Pre-Dialysis 59 BPM BP Standing (Post-Dialysis) 106/79 mmHg Temperature Pre-Dialysis 97.3 degF Sitting Heart Ra te Post-Dialysis 84 BPM Standing Heart Rate Post-Elva lysis 82 BPM Temperature Post-Dialysis 97 .6 degF February 21, 2024 In-Center Hemodialysis Treatment 3751-50-41X96:30:06.000Z 5490-02-09U72:23:06.000Z BP Sitting (Pre-Dialysis) 138/71 mmHg BP Sitting (Post-Dialysis) 130/86 mmHg Concurrent Access: falseCentral Venous Catheter (CVC) Chest (Right) Arterial Sitting Heart Rate Pre-Dialysis 71 BPM BP Standing (Post-Dialysis) 118/66 mmHg Temperature Pre-Dialysis 97.3 degF Sitting Heart Ra te Post-Dialysis 72 BPM Standing Heart Rate Post-Elva lysis 86 BPM Temperature Post-Dialysis 97 .3 degF February 18, 2024 In-Center Hemodialysis Treatment 6027-13-60J57:54:06.000Z 9481-05-00M97:58:07.000Z BP Sitting (Pre-Dialysis) 143/87 mmHg BP Sitting (Post-Dialysis) 122/80 mmHg Concurrent Access: falseCentral Venous Catheter (CVC) Chest (Right) Arterial Sitting Heart Rate Pre-Dialysis 60 BPM BP Standing (Post-Dialysis) 120/71 mmHg Temperature Pre-Dialysis 96.8 degF Sitting Heart Ra te Post-Dialysis 76 BPM Standing Heart Rate Post-Elva lysis 87 BPM Temperature Post-Dialysis 97 .4 degF February 16, 2024 In-Center Hemodialysis Treatment 5090-39-43S62:25:00.000Z 3864-77-68U21:05:12.000Z BP Sitting (Pre-Dialysis) 105/72 mmHg BP Sitting (Post-Dialysis) 114/76 mmHg Concurrent Access: falseCentral Venous Catheter (CVC) Chest (Right) Arterial Sitting Heart Rate Pre-Dialysis 62 BPM BP Standi ng (Post-Dialysis) 118/70 mmHg Temperature Pre-Dialysis 97 degF Sitting Heart Ra te Post-Dialysis 74 BPM Standing Heart Rate Post-Elva lysis 82 BPM Temperature Post-Dialysis 97 .9 degF February 14, 2024 In-Center Hemodialysis Treatment 5616-72-48O44:51:06.000Z 7577-86-51V11:03:07.000Z BP Sitting (Pre-Dialysis) 153/91 mmHg BP Sitting (Post-Dialysis) 132/88 mmHg Concurrent Access: falseCentral Venous Catheter (CVC) Chest (Right) Arterial Sitting Heart Rate Pre-Dialysis 66 BPM BP Standing (Post-Dialysis) 117/42 mmHg Temperature Pre-Dialysis 97.1 degF Sitting Heart Ra te Post-Dialysis 73 BPM Standing Heart Rate Post-Elva lysis 86 BPM Temperature Post-Dialysis 97 .4 degF February 11, 2024 In-Center Hemodialysis Treatment 6544-08-12C76:44:14.000Z 7209-78-28A56:32:14.000Z BP Sitting (Pre-Dialysis) 141/89 mmHg BP Sitting (Post-Dialysis) 142/87 mmHg Concurrent Access: falseCentral Venous Catheter (CVC) Chest (Right) Arterial Sitting Heart Rate Pre-Dialysis 70 BPM BP Standing (Post-Dialysis) 126/77 mmHg Temperature Pre-Dialysis 97.1 degF Sitting Heart Ra te Post-Dialysis 77 BPM Standing Heart Rate Post-Elva lysis 82 BPM Temperature Post-Dialysis 98 .1 degF February 09, 2024 In-Center Hemodialysis Treatment 8194-83-69A88:00:11.000Z 8910-65-36K99:08:04.000Z BP Sitting (Pre-Dialysis) 131/82 mmHg BP Sitting (Post-Dialysis) 126/79 mmHg Concurrent Access: falseCentral Venous Catheter (CVC) Chest (Right) Arterial Sitting Heart Rate Pre-Dialysis 61 BPM BP Standing (Post-Dialysis) 135/76 mmHg Temperature Pre-Dialysis 96.5 degF Sitting Heart Ra te Post-Dialysis 62 BPM Standing Heart Rate Post-Elva lysis 67 BPM Temperature Post-Dialysis 97 .4 degF February 07, 2024 In-Center Hemodialysis Treatment 1865-66-50J42:36:06.000Z 7621-20-74P70:32:06.000Z BP Sitting (Pre-Dialysis) 129/83 mmHg BP Sitting (Post-Dialysis) 131/83 mmHg Concurrent Access: falseCentral Venous Catheter (CVC) Chest (Right) Arterial Sitting Heart Rate Pre-Dialysis 57 BPM Sitting H eart Rate Post-Dialysis 69 BPM Temperature Pre-Dialysis 97.1 degF Temperature Post -Dialysis 97.4 degF February 04, 2024 In-Center Hemodialysis Treatment 6466-24-66B28:58:13.000Z 9214-01-69E39:59:13.000Z BP Sitting (Pre-Dialysis) 127/77 mmHg BP Sitting (Post-Dialysis) 110/69 mmHg Concurrent Access: falseCentral Venous Catheter (CVC) Chest (Right) Arterial Sitting Heart Rate Pre-Dialysis 61 BPM Sitting H eart Rate Post-Dialysis 65 BPM Temperature Pre-Dialysis 96.5 degF Temperature Post -Dialysis 97.3 degF January 14, 2024 In-Center Hemodialysis Treatment 5609-76-07C47:15:00.000Z 4685-22-49A27:45:00.000Z BP Sitting (Pre-Dialysis) 135/80 mmHg BP Sitting (Post-Dialysis) 155/88 mmHg Concurrent Access: falseCentral Venous Catheter (CVC) Chest (Right) Arterial Sitting Heart Rate Pre-Dialysis 58 BPM BP Standi ng (Post-Dialysis) 149/73 mmHg Temperature Pre-Dialysis 98 degF Sitting Heart Ra te Post-Dialysis 67 BPM Standing Heart Rate Post-Elva lysis 78 BPM Temperature Post-Dialysis 98 degF January 13, 2024 Additional Day Of Dialysis Treatment 0663-83-52A61:00:00.000Z 3839-75-16H40:20:00.000Z BP Sitting (Pre-Dialysis) 130/68 mmHg BP Sitting (Post-Dialysis) 120/68 mmHg Concurrent Access: falseCentral Venous Catheter (CVC) Chest (Right) Arterial BP Standing (Pre-Dialysis) 132/66 mmHg Sitting Heart Rate Post-Dialysis 74 BPM Sitting Heart Rate Pre-Dialysis 64 BPM Temperatu re Post-Dialysis 98 degF Standing Heart Rate Pre-Dialysis 60 BPM Temperature Pre-Dialysis 97.6 degF January 12, 2024 In-Center Hemodialysis Treatment 1998-72-35Y07:43:00.000Z 4676-04-78J71:45:00.000Z BP Sitting (Pre-Dialysis) 160/88 mmHg BP Sitting (Post-Dialysis) 120/66 mmHg Concurrent Access: falseCentral Venous Catheter (CVC) Chest (Right) Arterial BP Standing (Pre-Dialysis) 157/98 mmHg Sitting Heart Rate Post-Dialysis 66 BPM Sitting Heart Rate Pre-Dialysis 57 BPM Temperatu re Post-Dialysis 98 degF Standing Heart Rate Pre-Dialysis 56 BPM Temperature Pre-Dialysis 96.8 degF January 11, 2024 Additional Day Of Dialysis Treatment 7693-96-74A42:45:00.000Z 3097-33-32Q39:15:00.000Z BP Sitting (Pre-Dialysis) 142/63 mmHg BP Sitting (Post-Dialysis) 133/68 mmHg Concurrent Access: falseCentral Venous Catheter (CVC) Chest (Right) Arterial Sitting Heart Rate Pre-Dialysis 64 BPM Sitting H eart Rate Post-Dialysis 62 BPM Temperature Pre-Dialysis 97.6 degF Temperature Post -Dialysis 97.7 degF January 10, 2024 In-Center Hemodialysis Treatment 7630-00-40P21:43:00.000Z 6059-84-83R36:20:00.000Z BP Sitting (Pre-Dialysis) 133/86 mmHg BP Sitting (Post-Dialysis) 153/64 mmHg Concurrent Access: falseCentral Venous Catheter (CVC) Chest (Right) Arterial Sitting Heart Rate Pre-Dialysis 60 BPM Sitting H eart Rate Post-Dialysis 68 BPM Temperature Pre-Dialysis 98 degF Temperature Post -Dialysis 98 degF January 07, 2024 In-Center Hemodialysis Treatment 8548-65-63V00:50:00.000Z 0890-35-82N98:12:00.000Z BP Sitting (Pre-Dialysis) 112/63 mmHg BP Sitting (Post-Dialysis) 118/72 mmHg Concurrent Access: falseCentral Venous Catheter (CVC) Chest (Right) Arterial Sitting Heart Rate Pre-Dialysis 52 BPM BP Standi ng (Post-Dialysis) 104/70 mmHg Temperature Pre-Dialysis 98 degF Sitting Heart Ra te Post-Dialysis 68 BPM Standing Heart Rate Post-Elva lysis 67 BPM Temperature Post-Dialysis 98 .1 degF January 06, 2024 Additional Day Of Dialysis Treatment 1687-29-39O29:57:00.000Z 3243-20-95U87:15:00.000Z BP Sitting (Pre-Dialysis) 145/89 mmHg BP Sitting (Post-Dialysis) 122/72 mmHg Concurrent Access: falseCentral Venous Catheter (CVC) Chest (Right) Arterial Sitting Heart Rate Pre-Dialysis 59 BPM BP Standi ng (Post-Dialysis) 128/88 mmHg Temperature Pre-Dialysis 98 degF Sitting Heart Ra te Post-Dialysis 62 BPM Standing Heart Rate Post-Elva lysis 60 BPM Temperature Post-Dialysis 98 degF January 05, 2024 In-Center Hemodialysis Treatment 3613-84-44T27:06:00.000Z 9613-24-18L98:30:00.000Z BP Sitting (Pre-Dialysis) 149/81 mmHg BP Sitting (Post-Dialysis) 152/87 mmHg Concurrent Access: falseCentral Venous Catheter (CVC) Chest (Right) Arterial Sitting Heart Rate Pre-Dialysis 65 BPM BP Standi ng (Post-Dialysis) 135/71 mmHg Temperature Pre-Dialysis 98 degF Sitting Heart Ra te Post-Dialysis 66 BPM Standing Heart Rate Post-Elva lysis 73 BPM Temperature Post-Dialysis 98 degF January 03, 2024 In-Center Hemodialysis Treatment 8743-62-65W08:46:45.000Z 1628-23-92V61:31:45.000Z BP Sitting (Pre-Dialysis) 126/88 mmHg BP Sitting (Post-Dialysis) 151/78 mmHg Concurrent Access: falseCentral Venous Catheter (CVC) Chest (Right) Arterial Sitting Heart Rate Pre-Dialysis 58 BPM BP Standing (Post-Dialysis) 112/70 mmHg Temperature Pre-Dialysis 97.3 degF Sitting Heart Ra te Post-Dialysis 68 BPM Temperature Post-Dialysis 98 .1 degF December 31, 2023 In-Center Hemodialysis Treatment 5451-03-02C86:28:27.000Z 8095-10-22O05:17:28.000Z BP Sitting (Pre-Dialysis) 154/88 mmHg BP Sitting (Post-Dialysis) 122/85 mmHg Concurrent Access: falseCentral Venous Catheter (CVC) Chest (Right) Arterial Sitting Heart Rate Pre-Dialysis 61 BPM Sitting H eart Rate Post-Dialysis 69 BPM Temperature Pre-Dialysis 97.3 degF Temperature Post -Dialysis 97.1 degF December 29, 2023 In-Center Hemodialysis Treatment 0914-97-60N49:18:00.000Z 9459-69-49T37:14:27.000Z BP Sitting (Pre-Dialysis) 126/87 mmHg BP Sitting (Post-Dialysis) 121/81 mmHg Concurrent Access: falseCentral Venous Catheter (CVC) Chest (Right) Arterial Sitting Heart Rate Pre-Dialysis 68 BPM BP Standi ng (Post-Dialysis) 121/81 mmHg Temperature Pre-Dialysis 98 degF Sitting Heart Ra te Post-Dialysis 78 BPM Standing Heart Rate Post-Elva lysis 78 BPM Temperature Post-Dialysis 98 degF December 27, 2023 In-Center Hemodialysis Treatment 0900-28-46S06:20:00.000Z 7546-46-13G46:51:44.000Z BP Sitting (Pre-Dialysis) 111/71 mmHg BP Sitting (Post-Dialysis) 140/83 mmHg Concurrent Access: falseCentral Venous Catheter (CVC) Chest (Right) Arterial BP Standing (Pre-Dialysis) 121/68 mmHg BP Standing (P ost-Dialysis) 120/77 mmHg Sitting Heart Rate Pre-Dialysis 52 BPM Sitting Heart Rate Post-Dialysis 60 BPM Standing Heart Rate Pre-Dialysis 56 BPM Standing Heart Rate Post-Dialysis 73 BPM Temperature Pre-Dialysis 97.2 degF Temperature Post -Dialysis 97.8 degF December 24, 2023 In-Center Hemodialysis Treatment 4840-46-52H36:23:13.000Z 6640-34-41B93:14:14.000Z BP Sitting (Pre-Dialysis) 149/87 mmHg BP Sitting (Post-Dialysis) 160/90 mmHg Concurrent Access: falseCentral Venous Catheter (CVC) Chest (Right) Arterial Sitting Heart Rate Pre-Dialysis 66 BPM BP Standing (Post-Dialysis) 134/76 mmHg Temperature Pre-Dialysis 97.4 degF Sitting Heart Ra te Post-Dialysis 74 BPM Standing Heart Rate Post-Elva lysis 76 BPM Temperature Post-Dialysis 97 .4 degF December 22, 2023 In-Center Hemodialysis Treatment 0823-02-87F28:06:00.000Z 6712-78-70D42:01:01.000Z BP Sitting (Pre-Dialysis) 141/89 mmHg BP Sitting (Post-Dialysis) 152/84 mmHg Concurrent Access: falseCentral Venous Catheter (CVC) Chest (Right) Arterial Sitting Heart Rate Pre-Dialysis 71 BPM BP Standing (Post-Dialysis) 140/76 mmHg Temperature Pre-Dialysis 96.7 degF Sitting Heart Ra te Post-Dialysis 71 BPM Standing Heart Rate Post-Elva lysis 78 BPM Temperature Post-Dialysis 97 .2 degF December 20, 2023 In-Center Hemodialysis Treatment 2732-54-62O73:21:00.000Z 2081-41-35C79:53:23.000Z BP Sitting (Pre-Dialysis) 141/78 mmHg BP Sitting (Post-Dialysis) 152/89 mmHg Concurrent Access: falseCentral Venous Catheter (CVC) Chest (Right) Arterial Sitting Heart Rate Pre-Dialysis 64 BPM BP Standi ng (Post-Dialysis) 129/77 mmHg Temperature Pre-Dialysis 98 degF Sitting Heart Ra te Post-Dialysis 65 BPM Standing Heart Rate Post-Elva lysis 76 BPM Temperature Post-Dialysis 97 .5 degF December 17, 2023 In-Center Hemodialysis Treatment 7643-83-56H10:21:00.000Z 0870-09-12P53:13:35.000Z BP Sitting (Pre-Dialysis) 136/82 mmHg BP Sitting (Post-Dialysis) 144/89 mmHg Concurrent Access: falseCentral Venous Catheter (CVC) Chest (Right) Arterial Sitting Heart Rate Pre-Dialysis 57 BPM Sitting H eart Rate Post-Dialysis 66 BPM Temperature Pre-Dialysis 96.9 degF Temperature Post -Dialysis 97.1 degF December 15, 2023 In-Center Hemodialysis Treatment 8424-69-17T82:26:36.000Z 4895-43-14M73:17:36.000Z BP Sitting (Pre-Dialysis) 149/93 mmHg BP Sitting (Post-Dialysis) 155/93 mmHg Concurrent Access: falseCentral Venous Catheter (CVC) Chest (Right) Arterial Sitting Heart Rate Pre-Dialysis 60 BPM BP Standi ng (Post-Dialysis) 129/81 mmHg Temperature Pre-Dialysis 98 degF Sitting Heart Ra te Post-Dialysis 68 BPM Standing Heart Rate Post-Elva lysis 66 BPM Temperature Post-Dialysis 97 .2 degF December 13, 2023 In-Center Hemodialysis Treatment 2781-18-64L62:20:00.000Z 9274-39-43F47:07:36.000Z BP Sitting (Pre-Dialysis) 149/85 mmHg BP Sitting (Post-Dialysis) 163/104 mmHg Concurrent Access: falseCentral Venous Catheter (CVC) Chest (Right) Arterial Sitting Heart Rate Pre-Dialysis 65 BPM BP Standing (Post-Dialysis) 134/94 mmHg Temperature Pre-Dialysis 97.3 degF Sitting Heart Ra te Post-Dialysis 67 BPM Standing Heart Rate Post-Elva lysis 81 BPM Temperature Post-Dialysis 97 .4 degF December 10, 2023 In-Center Hemodialysis Treatment 4151-66-13K39:21:14.000Z 5096-80-23Y35:09:14.000Z BP Sitting (Pre-Dialysis) 155/83 mmHg BP Sitting (Post-Dialysis) 146/91 mmHg Concurrent Access: falseCentral Venous Catheter (CVC) Chest (Right) Arterial Sitting Heart Rate Pre-Dialysis 67 BPM BP Standing (Post-Dialysis) 136/76 mmHg Temperature Pre-Dialysis 96.5 degF Sitting Heart Ra te Post-Dialysis 63 BPM Standing Heart Rate Post-Elva lysis 70 BPM Temperature Post-Dialysis 97 .3 degF December 08, 2023 In-Center Hemodialysis Treatment 3988-57-71X29:18:09.000Z 4509-95-95L05:09:09.000Z BP Sitting (Pre-Dialysis) 148/83 mmHg BP Sitting (Post-Dialysis) 134/84 mmHg Concurrent Access: falseCentral Venous Catheter (CVC) Chest (Right) Arterial Sitting Heart Rate Pre-Dialysis 57 BPM BP Standing (Post-Dialysis) 117/73 mmHg Temperature Pre-Dialysis 97.2 degF Sitting Heart Ra te Post-Dialysis 64 BPM Standing Heart Rate Post-Elva lysis 74 BPM Temperature Post-Dialysis 97 .3 degF December 06, 2023 In-Center Hemodialysis Treatment [id number]:24:24.000Z 1007-38-76X31:19:24.000Z BP Sitting (Pre-Dialysis) 103/66 mmHg BP Sitting (Post-Dialysis) 147/89 mmHg Concurrent Access: falseCentral Venous Catheter (CVC) Chest (Right) Arterial Sitting Heart Rate Pre-Dialysis 62 BPM BP Standing (Post-Dialysis) 120/77 mmHg Temperature Pre-Dialysis 97.2 degF Sitting Heart Ra te Post-Dialysis 62 BPM Standing Heart Rate Post-Elva lysis 77 BPM Temperature Post-Dialysis 97 .3 degF December 03, 2023 In-Center Hemodialysis Treatment 3031-48-95L45:30:00.000Z 5160-90-10C94:22:21.000Z BP Sitting (Pre-Dialysis) 129/82 mmHg BP Sitting (Post-Dialysis) 122/81 mmHg Concurrent Access: falseCentral Venous Catheter (CVC) Chest (Right) Arterial BP Standing (Pre-Dialysis) 131/83 mmHg BP Standing (P ost-Dialysis) 104/74 mmHg Sitting Heart Rate Pre-Dialysis 53 BPM Sitting Heart Rate Post-Dialysis 81 BPM Standing Heart Rate Pre-Dialysis 57 BPM Standing Heart Rate Post-Dialysis 69 BPM Temperature Pre-Dialysis 97.2 degF Temperature Post -Dialysis 98 degF December 01, 2023 In-Center Hemodialysis Treatment [id number]:28:21.000Z 6316-14-97J39:10:20.000Z BP Sitting (Pre-Dialysis) 116/78 mmHg BP Sitting (Post-Dialysis) 137/84 mmHg Concurrent Access: falseCentral Venous Catheter (CVC) Chest (Right) Arterial Sitting Heart Rate Pre-Dialysis 50 BPM BP Standi ng (Post-Dialysis) 142/82 mmHg Temperature Pre-Dialysis 98 degF Sitting Heart Ra te Post-Dialysis 74 BPM Standing Heart Rate Post-Elva lysis 74 BPM Temperature Post-Dialysis 98 degF November 29, 2023 In-Center Hemodialysis Treatment 0612-78-98X64:11:21.000Z 1162-99-81K06:43:21.000Z BP Sitting (Pre-Dialysis) 114/71 mmHg BP Sitting (Post-Dialysis) 135/80 mmHg Concurrent Access: falseCentral Venous Catheter (CVC) Chest (Right) Arterial Sitting Heart Rate Pre-Dialysis 56 BPM BP Standing (Post-Dialysis) 116/77 mmHg Temperature Pre-Dialysis 97.4 degF Sitting Heart Ra te Post-Dialysis 67 BPM Standing Heart Rate Post-Elva lysis 75 BPM Temperature Post-Dialysis 98 degF November 26, 2023 In-Center Hemodialysis Treatment [id number]:03:00.000Z 8152-06-45G99:54:03.000Z BP Sitting (Pre-Dialysis) 127/75 mmHg BP Sitting (Post-Dialysis) 116/83 mmHg Concurrent Access: falseCentral Venous Catheter (CVC) Chest (Right) Arterial Sitting Heart Rate Pre-Dialysis 62 BPM Sitting H eart Rate Post-Dialysis 60 BPM Temperature Pre-Dialysis 96.9 degF Temperature Post -Dialysis 96.5 degF November 24, 2023 In-Center Hemodialysis Treatment 5589-55-98S51:21:03.000Z 1795-62-09Z01:09:02.000Z BP Sitting (Pre-Dialysis) 138/86 mmHg BP Sitting (Post-Dialysis) 121/80 mmHg Concurrent Access: falseCentral Venous Catheter (CVC) Chest (Right) Arterial Sitting Heart Rate Pre-Dialysis 58 BPM Sitting H eart Rate Post-Dialysis 59 BPM Temperature Pre-Dialysis 95.8 degF Temperature Post -Dialysis 97.2 degF November 22, 2023 In-Center Hemodialysis Treatment [id number]:28:00.000Z 5022-05-59A92:01:59.000Z BP Sitting (Pre-Dialysis) 151/81 mmHg BP Sitting (Post-Dialysis) 136/78 mmHg Concurrent Access: falseCentral Venous Catheter (CVC) Chest (Right) Arterial Sitting Heart Rate Pre-Dialysis 58 BPM BP Standing (Post-Dialysis) 114/87 mmHg Temperature Pre-Dialysis 97.2 degF Sitting Heart Ra te Post-Dialysis 61 BPM Standing Heart Rate Post-Elva lysis 70 BPM Temperature Post-Dialysis 97 .3 degF November 19, 2023 In-Center Hemodialysis Treatment 7914-23-16F46:18:00.000Z 2014-63-07O37:08:12.000Z BP Sitting (Pre-Dialysis) 134/76 mmHg BP Sitting (Post-Dialysis) 135/88 mmHg Concurrent Access: falseCentral Venous Catheter (CVC) Chest (Right) Arterial Sitting Heart Rate Pre-Dialysis 63 BPM BP Standi ng (Post-Dialysis) 138/79 mmHg Temperature Pre-Dialysis 97 degF Sitting Heart Ra te Post-Dialysis 71 BPM Standing Heart Rate Post-Elva lysis 89 BPM Temperature Post-Dialysis 97 .2 degF November 17, 2023 In-Center Hemodialysis Treatment 5233-08-34F01:25:00.000Z 9391-61-46R29:59:12.000Z BP Sitting (Pre-Dialysis) 139/82 mmHg BP Sitting (Post-Dialysis) 138/69 mmHg Concurrent Access: falseCentral Venous Catheter (CVC) Chest (Right) Arterial Sitting Heart Rate Pre-Dialysis 54 BPM BP Standing (Post-Dialysis) 122/78 mmHg Temperature Pre-Dialysis 97.1 degF Sitting Heart Ra te Post-Dialysis 63 BPM Standing Heart Rate Post-Elva lysis 70 BPM Temperature Post-Dialysis 97 .2 degF November 15, 2023 In-Center Hemodialysis Treatment 3372-76-08K58:26:11.000Z 9940-78-10C97:18:12.000Z BP Sitting (Pre-Dialysis) 143/90 mmHg BP Sitting (Post-Dialysis) 149/91 mmHg Concurrent Access: falseCentral Venous Catheter (CVC) Chest (Right) Arterial Sitting Heart Rate Pre-Dialysis 57 BPM BP Standing (Post-Dialysis) 114/77 mmHg Temperature Pre-Dialysis 97.1 degF Sitting Heart Ra te Post-Dialysis 68 BPM Standing Heart Rate Post-Elva lysis 72 BPM Temperature Post-Dialysis 97 .1 degF November 12, 2023 In-Center Hemodialysis Treatment 6484-73-40K91:28:00.000Z 9031-78-29L06:17:03.000Z BP Sitting (Pre-Dialysis) 126/78 mmHg BP Sitting (Post-Dialysis) 150/86 mmHg Concurrent Access: falseCentral Venous Catheter (CVC) Chest (Right) Arterial Sitting Heart Rate Pre-Dialysis 51 BPM BP Standing (Post-Dialysis) 137/86 mmHg Temperature Pre-Dialysis 97.1 degF Sitting Heart Ra te Post-Dialysis 66 BPM Standing Heart Rate Post-Elva lysis 79 BPM Temperature Post-Dialysis 98 degF November 10, 2023 In-Center Hemodialysis Treatment 1949-38-63L60:14:03.000Z 9761-13-19A63:59:03.000Z BP Sitting (Pre-Dialysis) 150/94 mmHg BP Sitting (Post-Dialysis) 128/81 mmHg Concurrent Access: falseCentral Venous Catheter (CVC) Chest (Right) Arterial Sitting Heart Rate Pre-Dialysis 53 BPM BP Standi ng (Post-Dialysis) 131/84 mmHg Temperature Pre-Dialysis 98 degF Sitting Heart Ra te Post-Dialysis 61 BPM Standing Heart Rate Post-Elva lysis 77 BPM Temperature Post-Dialysis 98 degF November 08, 2023 In-Center Hemodialysis Treatment 8342-66-57O67:11:58.000Z 6465-63-91O42:02:58.000Z BP Sitting (Pre-Dialysis) 160/86 mmHg BP Sitting (Post-Dialysis) 158/64 mmHg Concurrent Access: falseCentral Venous Catheter (CVC) Chest (Right) Arterial Sitting Heart Rate Pre-Dialysis 60 BPM Sitting H eart Rate Post-Dialysis 80 BPM Temperature Pre-Dialysis 96.4 degF Temperature Post -Dialysis 97.4 degF November 05, 2023 In-Center Hemodialysis Treatment 1783-07-00D89:17:08.000Z 2180-10-24P03:02:08.000Z BP Sitting (Pre-Dialysis) 128/78 mmHg BP Sitting (Post-Dialysis) 140/70 mmHg Concurrent Access: falseCentral Venous Catheter (CVC) Chest (Right) Arterial Sitting Heart Rate Pre-Dialysis 68 BPM BP Standing (Post-Dialysis) 127/79 mmHg Temperature Pre-Dialysis 97.3 degF Sitting Heart Ra te Post-Dialysis 70 BPM Standing Heart Rate Post-Elva lysis 82 BPM Temperature Post-Dialysis 97 .6 degF November 03, 2023 In-Center Hemodialysis Treatment 4700-67-51N62:03:07.000Z 6390-85-28C92:50:08.000Z BP Sitting (Pre-Dialysis) 120/78 mmHg BP Sitting (Post-Dialysis) 143/86 mmHg Concurrent Access: falseCentral Venous Catheter (CVC) Chest (Right) Arterial Sitting Heart Rate Pre-Dialysis 59 BPM BP Standi ng (Post-Dialysis) 132/81 mmHg Temperature Pre-Dialysis 97 degF Sitting Heart Ra te Post-Dialysis 61 BPM Standing Heart Rate Post-Elva lysis 73 BPM Temperature Post-Dialysis 97 .1 degF November 01, 2023 In-Center Hemodialysis Treatment 7257-58-89S79:35:08.000Z 0897-37-20U34:24:08.000Z BP Sitting (Pre-Dialysis) 136/87 mmHg BP Sitting (Post-Dialysis) 130/72 mmHg Concurrent Access: falseCentral Venous Catheter (CVC) Chest (Right) Arterial BP Standing (Pre-Dialysis) 136/87 mmHg Sitti ng Heart Rate Post-Dialysis 66 BPM Sitting Heart Rate Pre-Dialysis 54 BPM Temperatu re Post-Dialysis 97.2 degF Standing Heart Rate Pre-Dialysis 54 BPM Temperature Pre-Dialysis 97.3 degF October 29, 2023 In-Center Hemodialysis Treatment 9506-89-51O09:59:18.000Z 5931-67-23N11:44:17.000Z BP Sitting (Pre-Dialysis) 117/72 mmHg BP Sitting (Post-Dialysis) 130/91 mmHg Concurrent Access: falseCentral Venous Catheter (CVC) Chest (Right) Arterial Sitting Heart Rate Pre-Dialysis 52 BPM Sitting H eart Rate Post-Dialysis 64 BPM Temperature Pre-Dialysis 96.4 degF Temperature Post -Dialysis 97 degF October 27, 2023 In-Center Hemodialysis Treatment 6183-74-39S16:03:18.000Z 7942-38-42R01:49:17.000Z BP Sitting (Pre-Dialysis) 137/85 mmHg BP Sitting (Post-Dialysis) 148/86 mmHg Concurrent Access: falseCentral Venous Catheter (CVC) Chest (Right) Arterial Sitting Heart Rate Pre-Dialysis 57 BPM BP Standing (Post-Dialysis) 135/80 mmHg Temperature Pre-Dialysis 96.8 degF Sitting Heart Ra te Post-Dialysis 56 BPM Standing Heart Rate Post-Elva lysis 64 BPM Temperature Post-Dialysis 98 degF October 25, 2023 In-Center Hemodialysis Treatment 4498-17-75H05:55:18.000Z 0042-63-88M34:36:17.000Z BP Sitting (Pre-Dialysis) 122/73 mmHg BP Sitting (Post-Dialysis) 139/86 mmHg Concurrent Access: falseCentral Venous Catheter (CVC) Chest (Right) Arterial Sitting Heart Rate Pre-Dialysis 59 BPM Sitting H eart Rate Post-Dialysis 61 BPM Temperature Pre-Dialysis 97.5 degF Temperature Post -Dialysis 97.4 degF October 22, 2023 In-Center Hemodialysis Treatment 0693-59-81A29:03:33.000Z 6195-27-85I93:41:34.000Z BP Sitting (Pre-Dialysis) 138/82 mmHg BP Sitting (Post-Dialysis) 176/92 mmHg Concurrent Access: falseCentral Venous Catheter (CVC) Chest (Right) Arterial Sitting Heart Rate Pre-Dialysis 56 BPM BP Standing (Post-Dialysis) 141/94 mmHg Temperature Pre-Dialysis 97.3 degF Sitting Heart Ra te Post-Dialysis 71 BPM Standing Heart Rate Post-Elva lysis 72 BPM Temperature Post-Dialysis 97 .4 degF October 20, 2023 In-Center Hemodialysis Treatment 0905-57-17G86:12:00.000Z 3538-34-10W34:57:33.000Z BP Sitting (Pre-Dialysis) 135/82 mmHg BP Sitting (Post-Dialysis) 154/93 mmHg Concurrent Access: falseCentral Venous Catheter (CVC) Chest (Right) Arterial Sitting Heart Rate Pre-Dialysis 49 BPM Sitting H eart Rate Post-Dialysis 63 BPM Temperature Pre-Dialysis 96.4 degF Temperature Post -Dialysis 97 degF October 18, 2023 In-Center Hemodialysis Treatment 4010-31-02J22:48:37.000Z 4245-94-00B26:31:38.000Z BP Sitting (Pre-Dialysis) 148/87 mmHg BP Sitting (Post-Dialysis) 160/85 mmHg Concurrent Access: falseCentral Venous Catheter (CVC) Chest (Right) Arterial Sitting Heart Rate Pre-Dialysis 54 BPM BP Standing (Post-Dialysis) 128/78 mmHg Temperature Pre-Dialysis 97.1 degF Sitting Heart Ra te Post-Dialysis 61 BPM Standing Heart Rate Post-Elva lysis 69 BPM Temperature Post-Dialysis 98 degF October 08, 2023 In-Center Hemodialysis Treatment 2012-12-31B43:42:50.000Z 9640-44-85T56:19:49.000Z BP Sitting (Pre-Dialysis) 204/120 mmHg BP Sitting (Post-Dialysis) 188/113 mmHg Concurrent Access: falseCentral Venous Catheter (CVC) Chest (Right) Arterial Sitting Heart Rate Pre-Dialysis 48 BPM BP Standing (Post-Dialysis) 163/99 mmHg Temperature Pre-Dialysis 97.7 degF Sitting Heart Ra te Post-Dialysis 56 BPM Standing Heart Rate Post-Elva lysis 68 BPM Temperature Post-Dialysis 98 degF October 06, 2023 In-Center Hemodialysis Treatment 1394-11-34V35:55:50.000Z 4749-67-56H13:44:49.000Z BP Sitting (Pre-Dialysis) 201/118 mmHg BP Sitting (Post-Dialysis) 220/117 mmHg Concurrent Access: falseCentral Venous Catheter (CVC) Chest (Right) Arterial Sitting Heart Rate Pre-Dialysis 52 BPM BP Standi ng (Post-Dialysis) 184/116 mmHg Temperature Pre-Dialysis 97 degF Sitting Heart Ra te Post-Dialysis 54 BPM Standing Heart Rate Post-Elva lysis 64 BPM Temperature Post-Dialysis 97 degF October 04, 2023 In-Center Hemodialysis Treatment 1205-84-28E21:15:00.000Z 4072-52-52P89:05:49.000Z BP Sitting (Pre-Dialysis) 178/99 mmHg BP Sitting (Post-Dialysis) 215/108 mmHg Concurrent Access: falseCentral Venous Catheter (CVC) Chest (Right) Arterial Sitting Heart Rate Pre-Dialysis 57 BPM Sitting H eart Rate Post-Dialysis 57 BPM Temperature Pre-Dialysis 98 degF Temperature Post -Dialysis 98 degF October 01, 2023 In-Center Hemodialysis Treatment 3522-16-04L45:58:59.000Z 1192-13-13H53:41:59.000Z BP Sitting (Pre-Dialysis) 196/112 mmHg BP Sitting (Post-Dialysis) 211/118 mmHg Concurrent Access: falseCentral Venous Catheter (CVC) Chest (Right) Arterial Sitting Heart Rate Pre-Dialysis 56 BPM Sitting H eart Rate Post-Dialysis 60 BPM Temperature Pre-Dialysis 97 degF Temperature Post -Dialysis 97.2 degF September 29, 2023 In-Center Hemodialysis Treatment 1005-86-67O91:00:00.000Z 0041-92-38X26:57:04.000Z BP Sitting (Pre-Dialysis) 198/111 mmHg BP Sitting (Post-Dialysis) 183/106 mmHg Concurrent Access: falseCentral Venous Catheter (CVC) Chest (Right) Arterial Sitting Heart Rate Pre-Dialysis 57 BPM BP Standi ng (Post-Dialysis) 169/110 mmHg Temperature Pre-Dialysis 98 degF Sitting Heart Ra te Post-Dialysis 60 BPM Standing Heart Rate Post-Elva lysis 69 BPM Temperature Post-Dialysis 97 degF September 27, 2023 In-Center Hemodialysis Treatment 0350-02-20G06:15:00.000Z 9819-08-59W38:04:54.000Z BP Sitting (Pre-Dialysis) 199/105 mmHg BP Sitting (Post-Dialysis) 176/101 mmHg Concurrent Access: falseCentral Venous Catheter (CVC) Chest (Right) Arterial Sitting Heart Rate Pre-Dialysis 60 BPM Sitting H eart Rate Post-Dialysis 68 BPM Temperature Pre-Dialysis 98.7 degF Temperature Post -Dialysis 98 degF September 24, 2023 In-Center Hemodialysis Treatment 8209-31-06A33:49:00.000Z 7622-04-26L30:51:18.000Z BP Sitting (Pre-Dialysis) 160/79 mmHg BP Sitting (Post-Dialysis) 167/103 mmHg Concurrent Access: falseCentral Venous Catheter (CVC) Chest (Right) Arterial Sitting Heart Rate Pre-Dialysis 56 BPM BP Standing (Post-Dialysis) 131/90 mmHg Temperature Pre-Dialysis 96.4 degF Sitting Heart Ra te Post-Dialysis 60 BPM Standing Heart Rate Post-Elva lysis 71 BPM Temperature Post-Dialysis 97 degF September 22, 2023 In-Center Hemodialysis Treatment 6451-02-53J43:04:00.000Z 1420-43-32X05:53:18.000Z BP Sitting (Pre-Dialysis) 187/101 mmHg BP Sitting (Post-Dialysis) 185/104 mmHg Concurrent Access: falseCentral Venous Catheter (CVC) Chest (Right) Arterial Sitting Heart Rate Pre-Dialysis 62 BPM BP Standing (Post-Dialysis) 136/87 mmHg Temperature Pre-Dialysis 97.4 degF Sitting Heart Ra te Post-Dialysis 55 BPM Standing Heart Rate Post-Elva lysis 66 BPM Temperature Post-Dialysis 97 .4 degF September 20, 2023 In-Center Hemodialysis Treatment 6567-77-10T14:36:00.000Z 5909-34-72W09:26:08.000Z BP Sitting (Pre-Dialysis) 163/90 mmHg BP Sitting (Post-Dialysis) 144/89 mmHg Concurrent Access: falseCentral Venous Catheter (CVC) Chest (Right) Arterial Sitting Heart Rate Pre-Dialysis 63 BPM Sitting H eart Rate Post-Dialysis 70 BPM Temperature Pre-Dialysis 98 degF Temperature Post -Dialysis 98 degF September 17, 2023 In-Center Hemodialysis Treatment 7364-35-39V76:07:11.000Z 2549-97-93H62:58:10.000Z BP Sitting (Pre-Dialysis) 123/72 mmHg BP Sitting (Post-Dialysis) 135/80 mmHg Concurrent Access: falseCentral Venous Catheter (CVC) Chest (Right) Arterial Sitting Heart Rate Pre-Dialysis 51 BPM BP Standing (Post-Dialysis) 120/71 mmHg Temperature Pre-Dialysis 97.4 degF Sitting Heart Ra te Post-Dialysis 63 BPM Standing Heart Rate Post-Elva lysis 68 BPM Temperature Post-Dialysis 97 .4 degF September 15, 2023 In-Center Hemodialysis Treatment 6546-49-76R15:38:00.000Z 1578-31-65Y57:27:11.000Z BP Sitting (Pre-Dialysis) 134/87 mmHg BP Sitting (Post-Dialysis) 137/95 mmHg Concurrent Access: falseCentral Venous Catheter (CVC) Chest (Right) Arterial Sitting Heart Rate Pre-Dialysis 51 BPM BP Standing (Post-Dialysis) 128/82 mmHg Temperature Pre-Dialysis 96.6 degF Sitting Heart Ra te Post-Dialysis 63 BPM Standing Heart Rate Post-Elva lysis 66 BPM Temperature Post-Dialysis 97 .1 degF September 13, 2023 In-Center Hemodialysis Treatment 7711-54-80K85:12:00.000Z 2411-50-27S98:59:11.000Z BP Sitting (Pre-Dialysis) 142/87 mmHg BP Sitting (Post-Dialysis) 170/68 mmHg Concurrent Access: falseCentral Venous Catheter (CVC) Chest (Right) Arterial Sitting Heart Rate Pre-Dialysis 54 BPM Sitting H eart Rate Post-Dialysis 63 BPM Temperature Pre-Dialysis 98 degF Temperature Post -Dialysis 98 degF September 10, 2023 In-Center Hemodialysis Treatment 7865-38-83G76:06:00.000Z 9572-44-37Z05:31:42.000Z BP Sitting (Pre-Dialysis) 158/90 mmHg BP Sitting (Post-Dialysis) 142/81 mmHg Concurrent Access: falseCentral Venous Catheter (CVC) Chest (Right) Arterial BP Standing (Pre-Dialysis) 154/78 mmHg BP Standing (P ost-Dialysis) 126/79 mmHg Sitting Heart Rate Pre-Dialysis 57 BPM Sitting Heart Rate Post-Dialysis 81 BPM Standing Heart Rate Pre-Dialysis 66 BPM Standing Heart Rate Post-Dialysis 73 BPM Temperature Pre-Dialysis 98 degF Temperature Post -Dialysis 98 degF September 08, 2023 In-Center Hemodialysis Treatment 5542-06-56O89:30:42.000Z 0883-54-10S26:55:42.000Z BP Sitting (Pre-Dialysis) 151/91 mmHg BP Sitting (Post-Dialysis) 139/78 mmHg Concurrent Access: falseCentral Venous Catheter (CVC) Chest (Right) Arterial Sitting Heart Rate Pre-Dialysis 55 BPM BP Standi ng (Post-Dialysis) 118/68 mmHg Temperature Pre-Dialysis 97 degF Sitting Heart Ra te Post-Dialysis 54 BPM Standing Heart Rate Post-Elva lysis 67 BPM Temperature Post-Dialysis 97 degF September 06, 2023 In-Center Hemodialysis Treatment 8907-75-37B34:26:00.000Z 0673-19-20H22:11:42.000Z BP Sitting (Pre-Dialysis) 166/96 mmHg BP Sitting (Post-Dialysis) 148/80 mmHg Concurrent Access: falseCentral Venous Catheter (CVC) Chest (Right) Arterial Sitting Heart Rate Pre-Dialysis 69 BPM Sitting H eart Rate Post-Dialysis 60 BPM Temperature Pre-Dialysis 98 degF Temperature Post -Dialysis 98 degF September 03, 2023 In-Center Hemodialysis Treatment 8808-45-13Y92:19:18.000Z 7020-29-87H65:06:18.000Z BP Sitting (Pre-Dialysis) 161/93 mmHg BP Sitting (Post-Dialysis) 170/101 mmHg Concurrent Access: falseCentral Venous Catheter (CVC) Chest (Right) Arterial Sitting Heart Rate Pre-Dialysis 59 BPM BP Standi ng (Post-Dialysis) 166/97 mmHg Temperature Pre-Dialysis 97 degF Sitting Heart Ra te Post-Dialysis 60 BPM Standing Heart Rate Post-Elva lysis 74 BPM Temperature Post-Dialysis 97 degF August 27, 2023 In-Center Hemodialysis Treatment 3561-29-68S01:26:00.000Z 2248-05-98Z64:12:11.000Z BP Sitting (Pre-Dialysis) 187/116 mmHg BP Sitting (Post-Dialysis) 192/120 mmHg Concurrent Access: falseCentral Venous Catheter (CVC) Chest (Right) Arterial Sitting Heart Rate Pre-Dialysis 83 BPM BP Standing (Post-Dialysis) 152/114 mmHg Temperature Pre-Dialysis 97.9 degF Sitting Heart Ra te Post-Dialysis 71 BPM Standing Heart R ate Post-Dialysis 80 BPM Temperature Post-Dialysis 97 .3 degF August 25, 2023 In-Center Hemodialysis Treatment 0897-83-75O59:02:46.000Z 6772-13-58F20:28:46.000Z BP Sitting (Pre-Dialysis) 196/126 mmHg BP Sitting (Post-Dialysis) 185/100 mmHg Concurrent Access: falseCentral Venous Catheter (CVC) Chest (Right) Arterial Sitting Heart Rate Pre-Dialysis 69 BPM BP Standing (Post-Dialysis) 177/110 mmHg Temperature Pre-Dialysis 97.7 degF Sitting Heart Ra te Post-Dialysis 77 BPM Standing Heart R ate Post-Dialysis 75 BPM Temperature Post-Dialysis 97 .4 degF August 23, 2023 In-Center Hemodialysis Treatment 0557-57-63T19:28:00.000Z 6018-72-88D94:19:11.000Z BP Sitting (Pre-Dialysis) 165/104 mmHg BP Sitting (Post-Dialysis) 168/75 mmHg Concurrent Access: falseCentral Venous Catheter (CVC) Chest (Right) Arterial Sitting Heart Rate Pre-Dialysis 83 BPM BP Standi ng (Post-Dialysis) 134/98 mmHg Temperature Pre-Dialysis 98 degF Sitting Heart Ra te Post-Dialysis 75 BPM Standing Heart Rate Post-Elva lysis 69 BPM Temperature Post-Dialysis 98 degF August 20, 2023 In-Center Hemodialysis Treatment 2130-77-45M02:51:31.000Z 9847-22-43N03:40:31.000Z BP Sitting (Pre-Dialysis) 160/92 mmHg BP Sitting (Post-Dialysis) 195/103 mmHg Concurrent Access: falseCentral Venous Catheter (CVC) Chest (Right) Arterial Sitting Heart Rate Pre-Dialysis 85 BPM BP Standi ng (Post-Dialysis) 158/110 mmHg Temperature Pre-Dialysis 98 degF Sitting Heart Ra te Post-Dialysis 75 BPM Standing Heart Rate Post-Elva lysis 94 BPM Temperature Post-Dialysis 97 .4 degF August 18, 2023 In-Center Hemodialysis Treatment 1961-41-52L59:56:00.000Z 7568-07-86V67:43:31.000Z BP Sitting (Pre-Dialysis) 143/67 mmHg BP Sitting (Post-Dialysis) 167/107 mmHg Concurrent Access: falseCentral Venous Catheter (CVC) Chest (Right) Arterial Sitting Heart Rate Pre-Dialysis 60 BPM Sitting H eart Rate Post-Dialysis 70 BPM Temperature Pre-Dialysis 98 degF Temperature Post -Dialysis 98 degF August 16, 2023 In-Center Hemodialysis Treatment 7529-68-94Y32:13:31.000Z 3667-69-72J59:48:31.000Z BP Sitting (Pre-Dialysis) 171/104 mmHg BP Sitting (Post-Dialysis) 182/107 mmHg Concurrent Access: falseCentral Venous Catheter (CVC) Chest (Right) Arterial BP Standing (Pre-Dialysis) 159/98 mmHg BP Standing (P ost-Dialysis) 157/98 mmHg Sitting Heart Rate Pre-Dialysis 66 BPM Sitting Heart Rate Post-Dialysis 71 BPM Standing Heart Rate Pre-Dialysis 75 BPM Standing Heart Rate Post-Dialysis 86 BPM Temperature Pre-Dialysis 97.3 degF Temperature Post -Dialysis 97.4 degF August 13, 2023 In-Center Hemodialysis Treatment 6174-11-95R36:52:00.000Z 5366-01-73Q20:38:34.000Z BP Sitting (Pre-Dialysis) 135/84 mmHg BP Sitting (Post-Dialysis) 149/92 mmHg Concurrent Access: falseCentral Venous Catheter (CVC) Chest (Right) Arterial Sitting Heart Rate Pre-Dialysis 61 BPM Sitting H eart Rate Post-Dialysis 73 BPM Temperature Pre-Dialysis 98 degF Temperature Post -Dialysis 97.6 degF August 11, 2023 In-Center Hemodialysis Treatment 4555-06-22E16:08:34.000Z 3995-10-47X85:59:33.000Z BP Sitting (Pre-Dialysis) 140/88 mmHg BP Sitting (Post-Dialysis) 150/97 mmHg Concurrent Access: falseCentral Venous Catheter (CVC) Chest (Right) Arterial Sitting Heart Rate Pre-Dialysis 57 BPM BP Standi ng (Post-Dialysis) 136/99 mmHg Temperature Pre-Dialysis 97 degF Sitting Heart Ra te Post-Dialysis 62 BPM Standing Heart Rate Post-Elva lysis 77 BPM Temperature Post-Dialysis 97 .7 degF August 09, 2023 In-Center Hemodialysis Treatment 7170-02-40G54:13:34.000Z 5923-30-67H21:52:33.000Z BP Sitting (Pre-Dialysis) 163/101 mmHg BP Sitting (Post-Dialysis) 160/99 mmHg Concurrent Access: falseCentral Venous Catheter (CVC) Chest (Right) Arterial Sitting Heart Rate Pre-Dialysis 60 BPM BP Standing (Post-Dialysis) 140/100 mmHg Temperature Pre-Dialysis 96.9 degF Sitting Heart Ra te Post-Dialysis 62 BPM Standing Heart R ate Post-Dialysis 78 BPM Temperature Post-Dialysis 97 .7 degF August 06, 2023 In-Center Hemodialysis Treatment 1511-97-95S08:05:17.000Z 9290-11-09B36:55:17.000Z BP Sitting (Pre-Dialysis) 167/97 mmHg BP Sitting (Post-Dialysis) 157/91 mmHg Concurrent Access: falseCentral Venous Catheter (CVC) Chest (Right) Arterial Sitting Heart Rate Pre-Dialysis 52 BPM BP Standing (Post-Dialysis) 132/83 mmHg Temperature Pre-Dialysis 97.1 degF Sitting Heart Ra te Post-Dialysis 52 BPM Standing Heart Rate Post-Elva lysis 65 BPM Temperature Post-Dialysis 97 .4 degF August 04, 2023 In-Center Hemodialysis Treatment 5205-92-41U85:55:00.000Z 5863-07-50P32:42:17.000Z BP Sitting (Pre-Dialysis) 194/122 mmHg BP Sitting (Post-Dialysis) 176/111 mmHg Concurrent Access: falseCentral Venous Catheter (CVC) Chest (Right) Arterial Sitting Heart Rate Pre-Dialysis 60 BPM BP Standi ng (Post-Dialysis) 146/110 mmHg Temperature Pre-Dialysis 98 degF Sitting Heart Ra te Post-Dialysis 83 BPM Standing Heart Rate Post-Elva lysis 83 BPM Temperature Post-Dialysis 98 degF August 02, 2023 In-Center Hemodialysis Treatment 9431-15-69W82:22:18.000Z 3386-02-80J50:29:17.000Z BP Sitting (Pre-Dialysis) 198/114 mmHg BP Sitting (Post-Dialysis) 198/119 mmHg Concurrent Access: falseCentral Venous Catheter (CVC) Chest (Right) Arterial BP Standing (Pre-Dialysis) 184/119 mmHg BP Standing (P ost-Dialysis) 168/112 mmHg Sitting Heart Rate Pre-Dialysis 65 BPM Sitting Heart Rate Post-Dialysis 68 BPM Standing Heart Rate Pre-Dialysis 80 BPM Standing Heart Rate Post-Dialysis 92 BPM Temperature Pre-Dialysis 97.5 degF Temperature Post -Dialysis 98 degF July 30, 2023 In-Center Hemodialysis Treatment 7260-56-29I35:14:00.000Z 9667-08-15N19:46:49.000Z BP Sitting (Pre-Dialysis) 156/56 mmHg BP Sitting (Post-Dialysis) 165/99 mmHg Concurrent Access: falseCentral Venous Catheter (CVC) Chest (Right) Arterial Sitting Heart Rate Pre-Dialysis 60 BPM Sitting H eart Rate Post-Dialysis 60 BPM Temperature Pre-Dialysis 98 degF Temperature Post -Dialysis 98 degF July 28, 2023 In-Center Hemodialysis Treatment 6614-52-10E59:56:00.000Z 9015-19-37T64:18:50.000Z BP Sitting (Pre-Dialysis) 118/84 mmHg BP Sitting (Post-Dialysis) 133/89 mmHg Concurrent Access: falseCentral Venous Catheter (CVC) Chest (Right) Arterial Sitting Heart Rate Pre-Dialysis 49 BPM BP Standing (Post-Dialysis) 112/84 mmHg Temperature Pre-Dialysis 97.1 degF Sitting Heart Ra te Post-Dialysis 71 BPM Standing Heart Rate Post-Elva lysis 82 BPM Temperature Post-Dialysis 97 .9 degF July 26, 2023 In-Center Hemodialysis Treatment [id number]:09:00.000Z 8791-28-11W49:46:01.000Z BP Sitting (Pre-Dialysis) 147/80 mmHg BP Sitting (Post-Dialysis) 138/93 mmHg Concurrent Access: falseCentral Venous Catheter (CVC) Chest (Right) Arterial Sitting Heart Rate Pre-Dialysis 67 BPM BP Standing (Post-Dialysis) 137/69 mmHg Temperature Pre-Dialysis 97.1 degF Sitting Heart Ra te Post-Dialysis 72 BPM Standing Heart Rate Post-Elva lysis 97 BPM Temperature Post-Dialysis 97 .5 degF July 23, 2023 In-Center Hemodialysis Treatment [id number]:36:00.000Z 4507-90-92P82:03:32.000Z BP Sitting (Pre-Dialysis) 158/102 mmHg BP Sitting (Post-Dialysis) 116/55 mmHg Concurrent Access: falseCentral Venous Catheter (CVC) Chest (Right) Arterial Sitting Heart Rate Pre-Dialysis 74 BPM BP Standing (Post-Dialysis) 117/83 mmHg Temperature Pre-Dialysis 97.2 degF Sitting Heart Ra te Post-Dialysis 106 BPM Standing Heart Rate Post-Elva lysis 86 BPM July 21, 2023 In-Center Hemodialysis Treatment [id number]:11:00.000Z 4308-03-74S79:57:32.000Z BP Sitting (Pre-Dialysis) 178/105 mmHg BP Sitting (Post-Dialysis) 165/100 mmHg Concurrent Access: falseCentral Venous Catheter (CVC) Chest (Right) Arterial Sitting Heart Rate Pre-Dialysis 67 BPM BP Standing (Post-Dialysis) 181/95 mmHg Temperature Pre-Dialysis 97.2 degF Sitting Heart Ra te Post-Dialysis 67 BPM Standing Heart Rate Post-Elva lysis 88 BPM Temperature Post-Dialysis 98 degF July 19, 2023 In-Center Hemodialysis Treatment 0541-90-82P16:07:00.000Z 1938-43-30N14:15:32.000Z BP Sitting (Pre-Dialysis) 177/105 mmHg BP Sitting (Post-Dialysis) 163/108 mmHg Concurrent Access: falseCentral Venous Catheter (CVC) Chest (Right) Arterial Sitting Heart Rate Pre-Dialysis 73 BPM BP Standi ng (Post-Dialysis) 119/77 mmHg Temperature Pre-Dialysis 98 degF Sitting Heart Ra te Post-Dialysis 82 BPM Standing Heart Rate Post-Elva lysis 100 BPM Temperature Post-Dialysis 97 .6 degF July 16, 2023 In-Center Hemodialysis Treatment [id number]:48:26.000Z 4456-73-24T56:19:26.000Z BP Sitting (Pre-Dialysis) 169/103 mmHg BP Sitting (Post-Dialysis) 141/98 mmHg Concurrent Access: falseCentral Venous Catheter (CVC) Chest (Right) Arterial Sitting Heart Rate Pre-Dialysis 64 BPM Sitting H eart Rate Post-Dialysis 84 BPM Temperature Pre-Dialysis 98 degF Temperature Post -Dialysis 98 degF July 14, 2023 In-Center Hemodialysis Treatment 2112-57-55D43:28:00.000Z 3318-60-80Z34:19:26.000Z BP Sitting (Pre-Dialysis) 176/106 mmHg BP Sitting (Post-Dialysis) 162/99 mmHg Concurrent Access: falseCentral Venous Catheter (CVC) Chest (Right) Arterial Sitting Heart Rate Pre-Dialysis 65 BPM BP Standi ng (Post-Dialysis) 122/79 mmHg Temperature Pre-Dialysis 97 degF Sitting Heart Ra te Post-Dialysis 67 BPM Standing Heart Rate Post-Elva lysis 94 BPM Temperature Post-Dialysis 97 .8 degF July 12, 2023 In-Center Hemodialysis Treatment [id number]:13:25.000Z 1727-36-22Z44:07:25.000Z BP Sitting (Pre-Dialysis) 182/103 mmHg BP Sitting (Post-Dialysis) 159/112 mmHg Concurrent Access: falseCentral Venous Catheter (CVC) Chest (Right) Arterial Sitting Heart Rate Pre-Dialysis 66 BPM BP Standing (Post-Dialysis) 160/113 mmHg Temperature Pre-Dialysis 97.2 degF Sitting Heart Ra te Post-Dialysis 92 BPM Standing Heart R ate Post-Dialysis 90 BPM Temperature Post-Dialysis 97 .3 degF July 09, 2023 In-Center Hemodialysis Treatment 8063-36-00V25:28:00.000Z 5110-00-49K88:50:30.000Z BP Sitting (Pre-Dialysis) 191/117 mmHg BP Sitting (Post-Dialysis) 136/88 mmHg Concurrent Access: falseCentral Venous Catheter (CVC) Chest (Right) Arterial BP Standing (Pre-Dialysis) 193/115 mmHg BP Standing (P ost-Dialysis) 132/85 mmHg Sitting Heart Rate Pre-Dialysis 69 BPM Sitting Heart Rate Post-Dialysis 80 BPM Standing Heart Rate Pre-Dialysis 77 BPM Standing Heart Rate Post-Dialysis 99 BPM Temperature Pre-Dialysis 97.3 degF Temperature Post -Dialysis 98 degF July 07, 2023 In-Center Hemodialysis Treatment 6644-96-22H44:19:00.000Z 4983-14-39T16:08:30.000Z BP Sitting (Pre-Dialysis) 145/100 mmHg BP Sitting (Post-Dialysis) 128/85 mmHg Concurrent Access: falseCentral Venous Catheter (CVC) Chest (Right) Arterial Sitting Heart Rate Pre-Dialysis 71 BPM BP Standing (Post-Dialysis) 122/82 mmHg Temperature Pre-Dialysis 97.2 degF Sitting Heart Ra te Post-Dialysis 85 BPM Standing Heart Rate Post-Elva lysis 87 BPM Temperature Post-Dialysis 97 .4 degF July 05, 2023 In-Center Hemodialysis Treatment [id number]:13:00.000Z 5910-44-63O53:11:14.000Z BP Sitting (Pre-Dialysis) 168/110 mmHg BP Sitting (Post-Dialysis) 137/94 mmHg Concurrent Access: falseCentral Venous Catheter (CVC) Chest (Right) Arterial Sitting Heart Rate Pre-Dialysis 64 BPM BP Standi ng (Post-Dialysis) 110/72 mmHg Temperature Pre-Dialysis 97 degF Sitting Heart Ra te Post-Dialysis 78 BPM Standing Heart Rate Post-Elva lysis 95 BPM Temperature Post-Dialysis 98 degF July 02, 2023 In-Center Hemodialysis Treatment 4841-18-84R40:01:00.000Z 4230-99-26Z41:46:20.000Z BP Sitting (Pre-Dialysis) 176/102 mmHg BP Sitting (Post-Dialysis) 127/91 mmHg Concurrent Access: falseCentral Venous Catheter (CVC) Chest (Right) Arterial Sitting Heart Rate Pre-Dialysis 76 BPM BP Standing (Post-Dialysis) 134/89 mmHg Temperature Pre-Dialysis 97.2 degF Sitting Heart Ra te Post-Dialysis 78 BPM Standing Heart Rate Post-Elva lysis 78 BPM Temperature Post-Dialysis 98 degF June 30, 2023 In-Center Hemodialysis Treatment 5474-56-89Y05:16:20.000Z 8303-16-34K63:03:20.000Z BP Sitting (Pre-Dialysis) 180/103 mmHg BP Sitting (Post-Dialysis) 127/89 mmHg Concurrent Access: falseCentral Venous Catheter (CVC) Chest (Right) Arterial Sitting Heart Rate Pre-Dialysis 73 BPM Sitting H eart Rate Post-Dialysis 75 BPM Temperature Pre-Dialysis 97.3 degF Temperature Post -Dialysis 97.4 degF June 28, 2023 In-Center Hemodialysis Treatment 2918-77-26P91:05:00.000Z 3733-99-30I73:56:37.000Z BP Sitting (Pre-Dialysis) 162/90 mmHg BP Sitting (Post-Dialysis) 141/57 mmHg Concurrent Access: falseCentral Venous Catheter (CVC) Chest (Right) Arterial Sitting Heart Rate Pre-Dialysis 69 BPM Sitting H eart Rate Post-Dialysis 60 BPM Temperature Pre-Dialysis 98 degF Temperature Post -Dialysis 98 degF June 25, 2023 In-Center Hemodialysis Treatment 7653-53-51N96:47:16.000Z 4108-56-52V55:36:16.000Z BP Sitting (Pre-Dialysis) 196/116 mmHg BP Sitting (Post-Dialysis) 143/104 mmHg Concurrent Access: falseCentral Venous Catheter (CVC) Chest (Right) Arterial Sitting Heart Rate Pre-Dialysis 62 BPM Sitting H eart Rate Post-Dialysis 88 BPM Temperature Pre-Dialysis 96.6 degF Temperature Post -Dialysis 96.8 degF June 23, 2023 In-Center Hemodialysis Treatment 0123-67-41E48:06:00.000Z 3310-99-76I61:54:32.000Z BP Sitting (Pre-Dialysis) 170/108 mmHg BP Sitting (Post-Dialysis) 146/112 mmHg Concurrent Access: falseCentral Venous Catheter (CVC) Chest (Right) Arterial Sitting Heart Rate Pre-Dialysis 59 BPM BP Standi ng (Post-Dialysis) 148/118 mmHg Temperature Pre-Dialysis 97 degF Sitting Heart Ra te Post-Dialysis 78 BPM Standing Heart Rate Post-Elva lysis 69 BPM Temperature Post-Dialysis 98 degF June 21, 2023 In-Center Hemodialysis Treatment 7617-60-95P31:12:00.000Z 6805-70-74E07:47:32.000Z BP Sitting (Pre-Dialysis) 144/94 mmHg BP Sitting (Post-Dialysis) 136/98 mmHg Concurrent Access: falseCentral Venous Catheter (CVC) Chest (Right) Arterial Sitting Heart Rate Pre-Dialysis 59 BPM BP Standing (Post-Dialysis) 128/81 mmHg Temperature Pre-Dialysis 98.2 degF Sitting Heart Ra te Post-Dialysis 62 BPM Standing Heart Rate Post-Elva lysis 81 BPM Temperature Post-Dialysis 98 degF June 18, 2023 In-Center Hemodialysis Treatment 8251-69-33T63:45:00.000Z 1545-25-80F24:35:11.000Z BP Sitting (Pre-Dialysis) 151/98 mmHg BP Sitting (Post-Dialysis) 143/94 mmHg Concurrent Access: falseCentral Venous Catheter (CVC) Chest (Right) Arterial Sitting Heart Rate Pre-Dialysis 65 BPM Sitting H eart Rate Post-Dialysis 69 BPM Temperature Pre-Dialysis 97.1 degF Temperature Post -Dialysis 97.5 degF June 16, 2023 In-Center Hemodialysis Treatment 0849-88-35X68:22:42.000Z 1363-38-22C13:06:41.000Z BP Sitting (Pre-Dialysis) 144/85 mmHg BP Sitting (Post-Dialysis) 140/94 mmHg Concurrent Access: falseCentral Venous Catheter (CVC) Chest (Right) Arterial BP Standing (Pre-Dialysis) 145/84 mmHg BP Standing (P ost-Dialysis) 124/88 mmHg Sitting Heart Rate Pre-Dialysis 60 BPM Sitting Heart Rate Post-Dialysis 78 BPM Standing Heart Rate Pre-Dialysis 66 BPM Standing Heart Rate Post-Dialysis 74 BPM Temperature Pre-Dialysis 98 degF Temperature Post -Dialysis 97.5 degF June 14, 2023 In-Center Hemodialysis Treatment 9382-78-01W41:32:40.000Z 1615-59-42J84:03:44.000Z BP Sitting (Pre-Dialysis) 163/93 mmHg BP Sitting (Post-Dialysis) 163/80 mmHg Concurrent Access: falseCentral Venous Catheter (CVC) Chest (Right) Arterial Sitting Heart Rate Pre-Dialysis 69 BPM Sitting H eart Rate Post-Dialysis 86 BPM Temperature Pre-Dialysis 98 degF Temperature Post -Dialysis 97.4 degF June 11, 2023 In-Center Hemodialysis Treatment 7890-07-78R64:24:14.000Z 1172-56-68B81:02:14.000Z BP Sitting (Pre-Dialysis) 162/96 mmHg BP Sitting (Post-Dialysis) 152/101 mmHg Concurrent Access: falseCentral Venous Catheter (CVC) Chest (Right) Arterial Sitting Heart Rate Pre-Dialysis 75 BPM BP Standing (Post-Dialysis) 137/84 mmHg Temperature Pre-Dialysis 96.7 degF Sitting Heart Ra te Post-Dialysis 68 BPM Standing Heart Rate Post-Elva lysis 75 BPM Temperature Post-Dialysis 97 .8 degF June 09, 2023 In-Center Hemodialysis Treatment 0168-18-72H11:06:14.000Z 1189-42-37J74:56:14.000Z BP Sitting (Pre-Dialysis) 160/80 mmHg BP Sitting (Post-Dialysis) 143/92 mmHg Concurrent Access: falseCentral Venous Catheter (CVC) Chest (Right) Arterial Sitting Heart Rate Pre-Dialysis 72 BPM BP Standing (Post-Dialysis) 116/90 mmHg Temperature Pre-Dialysis 97.8 degF Sitting Heart Ra te Post-Dialysis 67 BPM Standing Heart Rate Post-Elva lysis 81 BPM Temperature Post-Dialysis 97 .4 degF June 07, 2023 In-Center Hemodialysis Treatment 9979-93-58C35:49:00.000Z 6702-41-12U58:14:16.000Z BP Sitting (Pre-Dialysis) 175/101 mmHg BP Sitting (Post-Dialysis) 122/72 mmHg Concurrent Access: falseCentral Venous Catheter (CVC) Chest (Right) Arterial Sitting Heart Rate Pre-Dialysis 76 BPM BP Standi ng (Post-Dialysis) 150/92 mmHg Temperature Pre-Dialysis 98 degF Sitting Heart Ra te Post-Dialysis 77 BPM Standing Heart Rate Post-Elva lysis 77 BPM Temperature Post-Dialysis 98 degF June 04, 2023 In-Center Hemodialysis Treatment [id number]:20:09.000Z 2185-37-90Y63:02:08.000Z BP Sitting (Pre-Dialysis) 146/87 mmHg BP Sitting (Post-Dialysis) 148/67 mmHg Concurrent Access: falseCentral Venous Catheter (CVC) Chest (Right) Arterial Sitting Heart Rate Pre-Dialysis 58 BPM BP Standing (Post-Dialysis) 154/91 mmHg Temperature Pre-Dialysis 97.2 degF Sitting Heart Ra te Post-Dialysis 71 BPM Standing Heart Rate Post-Elva lysis 71 BPM Temperature Post-Dialysis 98 degF June 02, 2023 In-Center Hemodialysis Treatment 6472-28-68J13:26:00.000Z 3025-97-86U78:01:08.000Z BP Sitting (Pre-Dialysis) 162/100 mmHg BP Sitting (Post-Dialysis) 161/93 mmHg Concurrent Access: falseCentral Venous Catheter (CVC) Chest (Right) Arterial Sitting Heart Rate Pre-Dialysis 78 BPM BP Standing (Post-Dialysis) 138/97 mmHg Temperature Pre-Dialysis 97.3 degF Sitting Heart Ra te Post-Dialysis 79 BPM Standing Heart Rate Post-Elva lysis 98 BPM Temperature Post-Dialysis 97 .4 degF May 31, 2023 In-Center Hemodialysis Treatment 2419-16-89K39:07:08.000Z 8914-70-92X63:54:08.000Z BP Sitting (Pre-Dialysis) 168/101 mmHg BP Sitting (Post-Dialysis) 174/106 mmHg Concurrent Access: falseCentral Venous Catheter (CVC) Chest (Right) Arterial Sitting Heart Rate Pre-Dialysis 58 BPM BP Standing (Post-Dialysis) 156/101 mmHg Temperature Pre-Dialysis 97.6 degF Sitting Heart Ra te Post-Dialysis 70 BPM Standing Heart R ate Post-Dialysis 80 BPM Temperature Post-Dialysis 97 .8 degF May 28, 2023 In-Center Hemodialysis Treatment 1592-30-64Y39:35:00.000Z 5930-37-94P49:58:20.000Z BP Sitting (Pre-Dialysis) 200/104 mmHg BP Sitting (Post-Dialysis) 163/78 mmHg Concurrent Access: falseCentral Venous Catheter (CVC) Chest (Right) Arterial Sitting Heart Rate Pre-Dialysis 66 BPM BP Standing (Post-Dialysis) 167/98 mmHg Temperature Pre-Dialysis 97.2 degF Sitting Heart Ra te Post-Dialysis 74 BPM Standing Heart Rate Post-Elva lysis 88 BPM Temperature Post-Dialysis 97 .2 degF May 26, 2023 In-Center Hemodialysis Treatment 1216-92-35L02:00:00.000Z 6105-62-27Z20:53:22.000Z BP Sitting (Pre-Dialysis) 178/94 mmHg BP Sitting (Post-Dialysis) 182/102 mmHg Concurrent Access: falseCentral Venous Catheter (CVC) Chest (Right) Arterial BP Standing (Pre-Dialysis) 155/99 mmHg BP Standing (P ost-Dialysis) 168/96 mmHg Sitting Heart Rate Pre-Dialysis 64 BPM Sitting Heart Rate Post-Dialysis 74 BPM Standing Heart Rate Pre-Dialysis 56 BPM Standing Heart Rate Post-Dialysis 81 BPM Temperature Pre-Dialysis 98.1 degF Temperature Post -Dialysis 98 degF May 23, 2023 In-Center Hemodialysis Treatment 1091-95-35S17:05:00.000Z 3460-18-09U71:01:24.000Z BP Sitting (Pre-Dialysis) 146/95 mmHg BP Sitting (Post-Dialysis) 148/90 mmHg Concurrent Access: falseCentral Venous Catheter (CVC) Chest (Right) Arterial Sitting Heart Rate Pre-Dialysis 53 BPM Sitting H eart Rate Post-Dialysis 96 BPM Temperature Pre-Dialysis 97.3 degF Temperature Post -Dialysis 98 degF May 21, 2023 In-Center Hemodialysis Treatment 4506-52-42E95:03:00.000Z 7578-63-63W98:01:37.000Z BP Sitting (Pre-Dialysis) 136/89 mmHg BP Sitting (Post-Dialysis) 162/96 mmHg Concurrent Access: falseCentral Venous Catheter (CVC) Chest (Right) Arterial Sitting Heart Rate Pre-Dialysis 56 BPM BP Standing (Post-Dialysis) 152/98 mmHg Temperature Pre-Dialysis 97.1 degF Sitting Heart Ra te Post-Dialysis 84 BPM Standing Heart Rate Post-Elva lysis 88 BPM Temperature Post-Dialysis 97 .4 degF May 19, 2023 In-Center Hemodialysis Treatment 2800-42-71O27:30:11.000Z 9189-76-65B03:14:11.000Z BP Sitting (Pre-Dialysis) 161/94 mmHg BP Sitting (Post-Dialysis) 150/102 mmHg Concurrent Access: falseCentral Venous Catheter (CVC) Chest (Right) Arterial Sitting Heart Rate Pre-Dialysis 76 BPM BP Standi ng (Post-Dialysis) 150/102 mmHg Temperature Pre-Dialysis 98 degF Sitting Heart Ra te Post-Dialysis 86 BPM Standing Heart Rate Post-Elva lysis 86 BPM Temperature Post-Dialysis 98 degF May 16, 2023 In-Center Hemodialysis Treatment 0429-99-12Z96:33:11.000Z 3742-06-39U34:03:10.000Z BP Sitting (Pre-Dialysis) 145/86 mmHg BP Sitting (Post-Dialysis) 175/89 mmHg Concurrent Access: falseCentral Venous Catheter (CVC) Chest (Right) Arterial BP Standing (Pre-Dialysis) 125/77 mmHg BP Standing (P ost-Dialysis) 164/87 mmHg Sitting Heart Rate Pre-Dialysis 64 BPM Sitting Heart Rate Post-Dialysis 66 BPM Standing Heart Rate Pre-Dialysis 64 BPM Temperature Post-Dialysis 97.6 degF Temperature Pre-Dialysis 97.5 degF May 14, 2023 In-Center Hemodialysis Treatment [id number]:59:04.000Z 8394-14-63V58:25:00.000Z BP Sitting (Pre-Dialysis) 133/81 mmHg BP Sitting (Post-Dialysis) 138/82 mmHg Concurrent Access: falseCentral Venous Catheter (CVC) Chest (Right) Arterial BP Standing (Pre-Dialysis) 106/54 mmHg BP Standing (P ost-Dialysis) 117/82 mmHg Sitting Heart Rate Pre-Dialysis 60 BPM Sitting Heart Rate Post-Dialysis 61 BPM Standing Heart Rate Pre-Dialysis 78 BPM Standing Heart Rate Post-Dialysis 68 BPM Temperature Pre-Dialysis 97.6 degF Temperature Post -Dialysis 97.4 degF May 12, 2023 In-Center Hemodialysis Treatment 6046-73-84H14:18:00.000Z 0846-89-00A00:07:30.000Z BP Sitting (Pre-Dialysis) 164/102 mmHg BP Sitting (Post-Dialysis) 163/101 mmHg Concurrent Access: falseCentral Venous Catheter (CVC) Chest (Right) Arterial Sitting Heart Rate Pre-Dialysis 73 BPM BP Standing (Post-Dialysis) 131/83 mmHg Temperature Pre-Dialysis 97.7 degF Sitting Heart Ra te Post-Dialysis 73 BPM Standing Heart Rate Post-Elva lysis 82 BPM Temperature Post-Dialysis 97 .4 degF May 10, 2023 In-Center Hemodialysis Treatment 2449-87-84N81:22:00.000Z 9762-90-31Z19:00:58.000Z BP Sitting (Pre-Dialysis) 179/108 mmHg BP Sitting (Post-Dialysis) 186/110 mmHg Concurrent Access: falseCentral Venous Catheter (CVC) Chest (Right) Arterial Sitting Heart Rate Pre-Dialysis 75 BPM BP Standing (Post-Dialysis) 167/105 mmHg Temperature Pre-Dialysis 97.6 degF Sitting Heart Ra te Post-Dialysis 75 BPM Standing Heart R ate Post-Dialysis 88 BPM Temperature Post-Dialysis 97 .8 degF May 07, 2023 In-Center Hemodialysis Treatment 7844-14-04Q35:21:00.000Z 2715-82-35X19:09:22.000Z BP Sitting (Pre-Dialysis) 167/107 mmHg BP Sitting (Post-Dialysis) 184/105 mmHg Concurrent Access: falseCentral Venous Catheter (CVC) Chest (Right) Arterial Sitting Heart Rate Pre-Dialysis 59 BPM BP Standing (Post-Dialysis) 138/99 mmHg Temperature Pre-Dialysis 97.8 degF Sitting Heart Ra te Post-Dialysis 72 BPM Standing Heart Rate Post-Elva lysis 81 BPM Temperature Post-Dialysis 98 degF May 05, 2023 In-Center Hemodialysis Treatment 6133-70-13N70:32:23.000Z 2428-61-99Z58:22:23.000Z BP Sitting (Pre-Dialysis) 177/94 mmHg BP Sitting (Post-Dialysis) 176/101 mmHg Concurrent Access: falseCentral Venous Catheter (CVC) Chest (Right) Arterial BP Standing (Pre-Dialysis) 158/95 mmHg BP Standing (P ost-Dialysis) 151/93 mmHg Sitting Heart Rate Pre-Dialysis 59 BPM Sitting Heart Rate Post-Dialysis 59 BPM Standing Heart Rate Pre-Dialysis 68 BPM Standing Heart Rate Post-Dialysis 69 BPM Temperature Pre-Dialysis 97.3 degF May 03, 2023 In-Center Hemodialysis Treatment 1858-21-50Y74:36:23.000Z 7791-17-86F56:13:12.000Z BP Sitting (Pre-Dialysis) 184/36 mmHg BP Sitting (Post-Dialysis) 174/108 mmHg Concurrent Access: falseCentral Venous Catheter (CVC) Chest (Right) Arterial Sitting Heart Rate Pre-Dialysis 64 BPM Sitting H eart Rate Post-Dialysis 79 BPM Temperature Pre-Dialysis 98 degF Temperature Post -Dialysis 98 degF April 30, 2023 In-Center Hemodialysis Treatment 7457-21-30J04:40:25.000Z 9979-35-60S25:27:24.000Z BP Sitting (Pre-Dialysis) 178/109 mmHg BP Sitting (Post-Dialysis) 181/115 mmHg Concurrent Access: falseCentral Venous Catheter (CVC) Chest (Right) Arterial BP Standing (Pre-Dialysis) 152/103 mmHg BP Standing (P ost-Dialysis) 164/97 mmHg Sitting Heart Rate Pre-Dialysis 68 BPM Sitting Heart Rate Post-Dialysis 65 BPM Standing Heart Rate Pre-Dialysis 69 BPM Standing Heart Rate Post-Dialysis 76 BPM Temperature Pre-Dialysis 97.8 degF Temperature Post -Dialysis 97.7 degF April 28, 2023 In-Center Hemodialysis Treatment 4819-73-58R64:45:25.000Z 6341-64-84C28:37:25.000Z BP Sitting (Pre-Dialysis) 178/116 mmHg BP Sitting (Post-Dialysis) 169/105 mmHg Concurrent Access: falseCentral Venous Catheter (CVC) Chest (Right) Arterial Sitting Heart Rate Pre-Dialysis 66 BPM Sitting H eart Rate Post-Dialysis 69 BPM Temperature Pre-Dialysis 97.5 degF Temperature Post -Dialysis 98.2 degF April 26, 2023 In-Center Hemodialysis Treatment 9111-95-78W24:54:00.000Z 5862-60-18S11:51:25.000Z BP Sitting (Pre-Dialysis) 188/105 mmHg BP Sitting (Post-Dialysis) 167/108 mmHg Concurrent Access: falseCentral Venous Catheter (CVC) Chest (Right) Arterial Sitting Heart Rate Pre-Dialysis 57 BPM Sitting H eart Rate Post-Dialysis 62 BPM Temperature Pre-Dialysis 98 degF Temperature Post -Dialysis 98 degF April 23, 2023 In-Center Hemodialysis Treatment 3520-16-51M31:46:15.000Z 3656-90-86K84:21:16.000Z BP Sitting (Pre-Dialysis) 210/116 mmHg BP Sitting (Post-Dialysis) 169/108 mmHg Concurrent Access: falseCentral Venous Catheter (CVC) Chest (Right) Arterial Sitting Heart Rate Pre-Dialysis 65 BPM Sitting H eart Rate Post-Dialysis 61 BPM Temperature Pre-Dialysis 97.5 degF Temperature Post -Dialysis 97.6 degF April 21, 2023 In-Center Hemodialysis Treatment 0947-49-10N43:38:00.000Z 3038-33-45L24:26:15.000Z BP Sitting (Pre-Dialysis) 189/109 mmHg BP Sitting (Post-Dialysis) 167/105 mmHg Concurrent Access: falseCentral Venous Catheter (CVC) Chest (Right) Arterial BP Standing (Pre-Dialysis) 186/107 mmHg BP Standing (P ost-Dialysis) 171/112 mmHg Sitting Heart Rate Pre-Dialysis 64 BPM Sitting Heart Rate Post-Dialysis 63 BPM Standing Heart Rate Pre-Dialysis 75 BPM Standing Heart Rate Post-Dialysis 71 BPM Temperature Pre-Dialysis 97.8 degF Temperature Post -Dialysis 97.9 degF April 19, 2023 In-Center Hemodialysis Treatment 8273-89-01M57:00:15.000Z 5743-51-94V37:28:15.000Z BP Sitting (Pre-Dialysis) 188/94 mmHg BP Sitting (Post-Dialysis) 162/106 mmHg Concurrent Access: falseCentral Venous Catheter (CVC) Chest (Right) Arterial Sitting Heart Rate Pre-Dialysis 88 BPM Sitting H eart Rate Post-Dialysis 62 BPM Temperature Pre-Dialysis 97.2 degF Temperature Post -Dialysis 98 degF April 16, 2023 In-Center Hemodialysis Treatment 7109-56-79A42:30:00.000Z 5700-02-43C34:04:24.000Z BP Sitting (Pre-Dialysis) 179/101 mmHg BP Sitting (Post-Dialysis) 156/98 mmHg Concurrent Access: falseCentral Venous Catheter (CVC) Chest (Right) Arterial Sitting Heart Rate Pre-Dialysis 60 BPM Sitting H eart Rate Post-Dialysis 79 BPM Temperature Pre-Dialysis 98 degF Temperature Post -Dialysis 97.4 degF April 13, 2023 In-Center Hemodialysis Treatment 0097-21-12G13:09:25.000Z 1243-23-63L01:36:24.000Z BP Sitting (Pre-Dialysis) 159/82 mmHg BP Sitting (Post-Dialysis) 149/87 mmHg Concurrent Access: falseCentral Venous Catheter (CVC) Chest (Right) Arterial Sitting Heart Rate Pre-Dialysis 53 BPM BP Standing (Post-Dialysis) 122/71 mmHg Temperature Pre-Dialysis 96.4 degF Sitting Heart Ra te Post-Dialysis 72 BPM Standing Heart Rate Post-Elva lysis 71 BPM Temperature Post-Dialysis 98 degF April 11, 2023 In-Center Hemodialysis Treatment 3854-24-75O56:24:00.000Z 5856-40-94D35:06:24.000Z BP Sitting (Pre-Dialysis) 175/107 mmHg BP Sitting (Post-Dialysis) 162/99 mmHg Concurrent Access: falseCentral Venous Catheter (CVC) Chest (Right) Arterial Sitting Heart Rate Pre-Dialysis 70 BPM BP Standing (Post-Dialysis) 185/105 mmHg Temperature Pre-Dialysis 97.6 degF Sitting Heart Ra te Post-Dialysis 73 BPM Standing Heart R ate Post-Dialysis 82 BPM Temperature Post-Dialysis 97 .4 degF April 09, 2023 In-Center Hemodialysis Treatment 4556-24-33S25:27:47.000Z 9907-42-24T73:04:46.000Z BP Sitting (Pre-Dialysis) 174/104 mmHg BP Sitting (Post-Dialysis) 154/100 mmHg Concurrent Access: falseCentral Venous Catheter (CVC) Chest (Right) Arterial BP Standing (Pre-Dialysis) 179/102 mmHg BP Standing (P ost-Dialysis) 144/100 mmHg Sitting Heart Rate Pre-Dialysis 68 BPM Sitting Heart Rate Post-Dialysis 72 BPM Standing Heart Rate Pre-Dialysis 71 BPM Standing Heart Rate Post-Dialysis 84 BPM Temperature Pre-Dialysis 97.3 degF Temperature Post -Dialysis 97.4 degF April 07, 2023 In-Center Hemodialysis Treatment 3916-64-23N57:50:47.000Z 2688-47-35N41:20:00.000Z BP Sitting (Pre-Dialysis) 170/100 mmHg BP Sitting (Post-Dialysis) 136/78 mmHg Concurrent Access: falseCentral Venous Catheter (CVC) Chest (Right) Arterial Sitting Heart Rate Pre-Dialysis 62 BPM BP Standing (Post-Dialysis) 148/105 mmHg Temperature Pre-Dialysis 97.3 degF Sitting Heart Ra te Post-Dialysis 88 BPM Standing Heart R ate Post-Dialysis 68 BPM Temperature Post-Dialysis 98 degF April 05, 2023 In-Center Hemodialysis Treatment 0706-82-12S95:13:46.000Z 9117-10-14W27:42:47.000Z BP Sitting (Pre-Dialysis) 144/91 mmHg BP Sitting (Post-Dialysis) 150/91 mmHg Concurrent Access: falseCentral Venous Catheter (CVC) Chest (Right) Arterial BP Standing (Pre-Dialysis) 154/98 mmHg BP Standing (P ost-Dialysis) 148/90 mmHg Sitting Heart Rate Pre-Dialysis 72 BPM Sitting Heart Rate Post-Dialysis 71 BPM Standing Heart Rate Pre-Dialysis 67 BPM Standing Heart Rate Post-Dialysis 71 BPM Temperature Pre-Dialysis 98 degF Temperature Post -Dialysis 98 degF April 02, 2023 In-Center Hemodialysis Treatment 9350-52-30F02:52:12.000Z 2956-25-58E99:19:13.000Z BP Sitting (Pre-Dialysis) 125/71 mmHg BP Sitting (Post-Dialysis) 134/78 mmHg Concurrent Access: falseCentral Venous Catheter (CVC) Chest (Right) Arterial Sitting Heart Rate Pre-Dialysis 53 BPM BP Standing (Post-Dialysis) 104/74 mmHg Temperature Pre-Dialysis 97.2 degF Sitting Heart Ra te Post-Dialysis 82 BPM Standing Heart Rate Post-Elva lysis 74 BPM Temperature Post-Dialysis 97 .4 degF March 31, 2023 In-Center Hemodialysis Treatment [id number]:00.000Z [id number]:12.000Z BP Sitting (Pre-Dialysis) 166/97 mmHg BP Sitting (Post-Dialysis) 152/89 mmHg Concurrent Access: falseCentral Venous Catheter (CVC) Chest (Right) Arterial Sitting Heart Rate Pre-Dialysis 68 BPM BP Standing (Post-Dialysis) 157/87 mmHg Temperature Pre-Dialysis 97.2 degF Sitting Heart Ra te Post-Dialysis 88 BPM Standing Heart Rate Post-Elva lysis 88 BPM Temperature Post-Dialysis 98 degF March 29, 2023 In-Center Hemodialysis Treatment [id number]:12.000Z [id number]:27:12.000Z BP Sitting (Pre-Dialysis) 159/87 mmHg BP Sitting (Post-Dialysis) 145/97 mmHg Concurrent Access: falseCentral Venous Catheter (CVC) Chest (Right) Arterial BP Standing (Pre-Dialysis) 146/96 mmHg BP Standing (P ost-Dialysis) 132/94 mmHg Sitting Heart Rate Pre-Dialysis 69 BPM Sitting Heart Rate Post-Dialysis 89 BPM Standing Heart Rate Pre-Dialysis 72 BPM Standing Heart Rate Post-Dialysis 90 BPM Temperature Pre-Dialysis 95.1 degF Temperature Post -Dialysis 97.4 degF March 26, 2023 In-Center Hemodialysis Treatment [id number]:07:00.000Z [id number]:20.000Z BP Sitting (Pre-Dialysis) 153/90 mmHg BP Sitting (Post-Dialysis) 143/82 mmHg Concurrent Access: falseCentral Venous Catheter (CVC) Chest (Right) Arterial BP Standing (Pre-Dialysis) 167/98 mmHg BP Standing (P ost-Dialysis) 152/77 mmHg Sitting Heart Rate Pre-Dialysis 74 BPM Sitting Heart Rate Post-Dialysis 93 BPM Standing Heart Rate Pre-Dialysis 74 BPM Standing Heart Rate Post-Dialysis 82 BPM Temperature Pre-Dialysis 98 degF Temperature Post -Dialysis 98 degF March 24, 2023 In-Center Hemodialysis Treatment [id number]:00.000Z [id number]:20.000Z BP Sitting (Pre-Dialysis) 36/81 mmHg BP Sitting (Post-Dialysis) 139/91 mmHg Concurrent Access: falseCentral Venous Catheter (CVC) Chest (Right) Arterial Sitting Heart Rate Pre-Dialysis 66 BPM BP Standing (Post-Dialysis) 129/75 mmHg Temperature Pre-Dialysis 98.2 degF Sitting Heart Ra te Post-Dialysis 76 BPM Standing Heart Rate Post-Elva lysis 82 BPM Temperature Post-Dialysis 97 .3 degF March 22, 2023 In-Center Hemodialysis Treatment [id number]:19.000Z [id number]:20.000Z BP Sitting (Pre-Dialysis) 127/84 mmHg BP Sitting (Post-Dialysis) 136/77 mmHg Concurrent Access: falseCentral Venous Catheter (CVC) Chest (Right) Arterial BP Standing (Pre-Dialysis) 126/79 mmHg BP Standing (P ost-Dialysis) 117/56 mmHg Sitting Heart Rate Pre-Dialysis 55 BPM Sitting Heart Rate Post-Dialysis 68 BPM Standing Heart Rate Pre-Dialysis 56 BPM Standing Heart Rate Post-Dialysis 73 BPM Temperature Pre-Dialysis 97.2 degF Temperature Post -Dialysis 97.6 degF March 19, 2023 In-Center Hemodialysis Treatment [id number]:20.000Z [id number]:21:21.000Z BP Sitting (Pre-Dialysis) 134/83 mmHg BP Sitting (Post-Dialysis) 142/86 mmHg Concurrent Access: falseCentral Venous Catheter (CVC) Chest (Right) Arterial BP Standing (Pre-Dialysis) 148/78 mmHg BP Standing (P ost-Dialysis) 155/80 mmHg Sitting Heart Rate Pre-Dialysis 71 BPM Sitting Heart Rate Post-Dialysis 79 BPM Standing Heart Rate Pre-Dialysis 74 BPM Standing Heart Rate Post-Dialysis 81 BPM Temperature Pre-Dialysis 97 degF Temperature Post -Dialysis 97.2 degF DIALYSIS ORDER Dialysis Procedure Orders Type of Dialysis Procedure Order Order Date/Time Observations In-Center Hemodialysis Treatment June 06, 2024 Target Weight 86 kg Dialysate Flow Rate 800 mL/min Blood Flow Rate 400 mL/min Treatment Time 225 min(total) Max UF Rate 13 mL/kg/hr Base Sodium Dialysate Base Sodium 138 mE q/L dialysate_temp 36 C BiCarb Dialysate BiCarbonate 37 meq/L Access Concurrent No Arterial Access Central Venous [facility] ter (CVC) (Chest (Right)) Venous Access Central Venous [facility] (CVC) (Chest (Right)) Dialyzer Nipro Elisio 19H 162 6 [email or web address] Dialysate Bath Potassium Potassium 2 mEq /L Dialysate Bath Calcium Calcium 2.5 mEq/L Results Adequacy Description Draw Date Result/Unit Status Ref Range Result Comments Creatinine [Mass/volume] in Serum or Plasma 2024-08-15 13:42:15 7.02 mg/dL F 0.7-1.3 URR% 2024-07-27 16:01:14 67 % F eKt/V 2024-07-27 16:01:14 1.08 F CURRENT KRU 2024-07-27 16:01:14 F Dialyzer ANGELA 2024-07-27 16:01:14 1626 Calc F DIALYZER FLOW-QD 2024-07-27 16:01:14 800 mL/min F BLOOD FLOW-QWB 2024-07-27 16:01:14 364 F PATIENT AGE 2024-07-27 16:01:14 69 Years F VT (KT/V TX VOL) 2024-07-27 16:01:14 51.9 L F Std Renal KT/V 2024-07-27 16:01:14 N/A F LENGTH OF DIALYSIS 2024-07-27 16:01:14 224 min F Total Kt/V 2024-07-27 16:01:14 1.25 F PRESCRIBED DAYS/WEEK 2024-07-27 16:01:14 3 Day/Wk F stdKT/V Total 2024-07-27 16:01:14 N/A F spKt/V 2024-07-27 16:01:14 1.25 F WEIGHT (KG) 2024-07-27 16:01:14 86 kg F stdKt/V (DIAL) 2024-07-27 16:01:14 N/A F TBW (Boyd) 2024-07-27 16:01:14 44.85 Liters F AMPUTATE FACTOR 2024-07-27 16:01:14 0 F KT/V PRESCRIBED 2024-07-27 16:01:14 1.85 F WEIGHT - PRE DAY 1 2024-07-27 16:01:14 87.3 kg F VM (KT/V MEAN VOL) 2024-07-27 16:01:14 54.4 F HEIGHT IN INCHES 2024-07-27 16:01:14 74 Inches F nPCR 2024-07-27 16:01:14 0.93 G/KG/D F BSA CAITY 2024-07-27 16:01:14 2.12 sq m F WEIGHT - POST DAY 1 2024-07-27 16:01:14 85.9 kg F Residual kt/v 2024-07-27 16:01:14 F TOTAL HOURS/WEEK DIALYSIS 2024-07-27 16:01:14 10 hrs F Urea nitrogen [Mass/volume] in Serum or Plasma 2024-07-27 15:59:17 51 mg/dL F 9.0-23.0 Urea nitrogen [Mass/volume] in Serum or Plasma --post dialysis 2024-07-27 15:43:26 17 mg/dL F 9.0-23.0 Creatinine [Mass/volume] in Serum or Plasma 2024-07-18 19:59:18 5.72 mg/dL F 0.7-1.3 stdKt/V (DIAL) 2024-06-27 18:31:08 N/A F URR% 2024-06-27 18:31:08 67 % F nPCR 2024-06-27 18:31:08 0.77 G/KG/D F Std Renal KT/V 2024-06-27 18:31:08 N/A F DIALYZER FLOW-QD 2024-06-27 18:31:08 755 mL/min F Total Kt/V 2024-06-27 18:31:08 1.21 F TOTAL HOURS/WEEK DIALYSIS 2024-06-27 18:31:08 9 hrs F WEIGHT - POST DAY 1 2024-06-27 18:31:08 85.9 kg F CURRENT KRU 2024-06-27 18:31:08 F VM (KT/V MEAN VOL) 2024-06-27 18:31:08 55.3 F Residual kt/v 2024-06-27 18:31:08 F TBW (Boyd) 2024-06-27 18:31:08 44.95 Liters F KT/V PRESCRIBED 2024-06-27 18:31:08 1.81 F eKt/V 2024-06-27 18:31:08 1.05 F LENGTH OF DIALYSIS 2024-06-27 18:31:08 220 min F PATIENT AGE 2024-06-27 18:31:08 68 Years F PRESCRIBED DAYS/WEEK 2024-06-27 18:31:08 3 Day/Wk F AMPUTATE FACTOR 2024-06-27 18:31:08 0 F spKt/V 2024-06-27 18:31:08 1.21 F BSA CAITY 2024-06-27 18:31:08 2.12 sq m F Dialyzer ANGELA 2024-06-27 18:31:08 1626 Calc F WEIGHT (KG) 2024-06-27 18:31:08 86 kg F VT (KT/V TX VOL) 2024-06-27 18:31:08 53.5 L F WEIGHT - PRE DAY 1 2024-06-27 18:31:08 86.4 kg F BLOOD FLOW-QWB 2024-06-27 18:31:08 380 F HEIGHT IN INCHES 2024-06-27 18:31:08 74 Inches F stdKT/V Total 2024-06-27 18:31:08 N/A F Urea nitrogen [Mass/volume] in Serum or Plasma 2024-06-27 18:29:23 52 mg/dL F 9.0-23.0 Urea nitrogen [Mass/volume] in Serum or Plasma --post dialysis 2024-06-27 17:32:16 17 mg/dL F 9.0-23.0 Creatinine [Mass/volume] in Serum or Plasma 2024-06-21 00:29:17 10.54 mg/dL F 0.7-1.3 Std Renal KT/V 2024-06-09 04:18:05 N/A F spKt/V 2024-06-09 04:18:05 1.2 F VT (KT/V TX VOL) 2024-06-09 04:18:05 53.6 L F BSA CAITY 2024-06-09 04:18:05 2.12 sq m F WEIGHT - POST DAY 1 2024-06-09 04:18:05 86 kg F AMPUTATE FACTOR 2024-06-09 04:18:05 0 F LENGTH OF DIALYSIS 2024-06-09 04:18:05 221 min F eKt/V 2024-06-09 04:18:05 1.04 F PATIENT AGE 2024-06-09 04:18:05 68 Years F KT/V PRESCRIBED 2024-06-09 04:18:05 1.82 F Total Kt/V 2024-06-09 04:18:05 1.2 F URR% 2024-06-09 04:18:05 67 % F nPCR 2024-06-09 04:18:05 0.76 G/KG/D F stdKT/V Total 2024-06-09 04:18:05 N/A F PRESCRIBED DAYS/WEEK 2024-06-09 04:18:05 3 Day/Wk F BLOOD FLOW-QWB 2024-06-09 04:18:05 370 F TBW (Boyd) 2024-06-09 04:18:05 44.98 Liters F HEIGHT IN INCHES 2024-06-09 04:18:05 74 Inches F Residual kt/v 2024-06-09 04:18:05 F CURRENT KRU 2024-06-09 04:18:05 F stdKt/V (DIAL) 2024-06-09 04:18:05 N/A F Dialyzer ANGELA 2024-06-09 04:18:05 1626 Calc F TOTAL HOURS/WEEK DIALYSIS 2024-06-09 04:18:05 7 hrs F WEIGHT - PRE DAY 1 2024-06-09 04:18:05 86.8 kg F DIALYZER FLOW-QD 2024-06-09 04:18:05 800 mL/min F VM (KT/V MEAN VOL) 2024-06-09 04:18:05 55.9 F WEIGHT (KG) 2024-06-09 04:18:05 86 kg F Urea nitrogen [Mass/volume] in Serum or Plasma 2024-06-09 04:16:17 51 mg/dL F 9.0-23.0 Urea nitrogen [Mass/volume] in Serum or Plasma --post dialysis 2024-06-09 04:02:18 17 mg/dL F 9.0-23.0 Std Renal KT/V 2024-06-06 17:15:17 N/A F LENGTH OF DIALYSIS 2024-06-06 17:15:17 224 min F stdKT/V Total 2024-06-06 17:15:17 N/A F TOTAL HOURS/WEEK DIALYSIS 2024-06-06 17:15:17 7 hrs F PATIENT AGE 2024-06-06 17:15:17 68 Years F URR% 2024-06-06 17:15:17 66 % F WEIGHT (KG) 2024-06-06 17:15:17 88 kg F BSA CAITY 2024-06-06 17:15:17 2.15 sq m F WEIGHT - POST DAY 1 2024-06-06 17:15:17 86.1 kg F VM (KT/V MEAN VOL) 2024-06-06 17:15:17 56.6 F Total Kt/V 2024-06-06 17:15:17 1.13 F VT (KT/V TX VOL) 2024-06-06 17:15:17 57.9 L F TBW (Boyd) 2024-06-06 17:15:17 45.01 Liters F WEIGHT - PRE DAY 1 2024-06-06 17:15:17 83.6 kg F Residual kt/v 2024-06-06 17:15:17 F KT/V PRESCRIBED 2024-06-06 17:15:17 1.82 F Dialyzer ANGELA 2024-06-06 17:15:17 1626 Calc F stdKt/V (DIAL) 2024-06-06 17:15:17 N/A F DIALYZER FLOW-QD 2024-06-06 17:15:17 800 mL/min F HEIGHT IN INCHES 2024-06-06 17:15:17 74 Inches F PRESCRIBED DAYS/WEEK 2024-06-06 17:15:17 3 Day/Wk F spKt/V 2024-06-06 17:15:17 1.13 F AMPUTATE FACTOR 2024-06-06 17:15:17 0 F nPCR 2024-06-06 17:15:17 0.63 G/KG/D F BLOOD FLOW-QWB 2024-06-06 17:15:17 372 F eKt/V 2024-06-06 17:15:17 0.98 F CURRENT KRU 2024-06-06 17:15:17 F Urea nitrogen [Mass/volume] in Serum or Plasma --post dialysis 2024-06-06 17:13:14 23 mg/dL F 9.0-23.0 Urea nitrogen [Mass/volume] in Serum or Plasma 2024-06-06 16:50:21 68 mg/dL F 9.0-23.0 VT (KT/V TX VOL) 2024-06-02 15:15:27 56 L F AMPUTATE FACTOR 2024-06-02 15:15:27 0 F HEIGHT IN INCHES 2024-06-02 15:15:27 74 Inches F Residual kt/v 2024-06-02 15:15:27 F stdKT/V Total 2024-06-02 15:15:27 N/A F TBW (Boyd) 2024-06-02 15:15:27 45.55 Liters F LENGTH OF DIALYSIS 2024-06-02 15:15:27 203 min F WEIGHT - POST DAY 1 2024-06-02 15:15:27 87.7 kg F PATIENT AGE 2024-06-02 15:15:27 68 Years F Total Kt/V 2024-06-02 15:15:27 1.09 F PRESCRIBED DAYS/WEEK 2024-06-02 15:15:27 3 Day/Wk F spKt/V 2024-06-02 15:15:27 1.09 F Dialyzer ANGELA 2024-06-02 15:15:27 1626 Calc F VM (KT/V MEAN VOL) 2024-06-02 15:15:27 56.1 F KT/V PRESCRIBED 2024-06-02 15:15:27 1.64 F DIALYZER FLOW-QD 2024-06-02 15:15:27 800 mL/min F eKt/V 2024-06-02 15:15:27 0.94 F nPCR 2024-06-02 15:15:27 0.62 G/KG/D F Std Renal KT/V 2024-06-02 15:15:27 N/A F BSA CAITY 2024-06-02 15:15:27 2.15 sq m F BLOOD FLOW-QWB 2024-06-02 15:15:27 388 F TOTAL HOURS/WEEK DIALYSIS 2024-06-02 15:15:27 6 hrs F stdKt/V (DIAL) 2024-06-02 15:15:27 N/A F WEIGHT - PRE DAY 1 2024-06-02 15:15:27 89.1 kg F WEIGHT (KG) 2024-06-02 15:15:27 88 kg F URR% 2024-06-02 15:15:27 64 % F CURRENT KRU 2024-06-02 15:15:27 F Urea nitrogen [Mass/volume] in Serum or Plasma 2024-06-02 15:13:17 66 mg/dL F 9.0-23.0 Urea nitrogen [Mass/volume] in Serum or Plasma --post dialysis 2024-06-02 15:11:19 24 mg/dL F 9.0-23.0 WEIGHT - POST DAY 1 2024-05-27 19:48:17 87.4 kg F KT/V PRESCRIBED 2024-05-27 19:48:17 1.73 F DIALYZER FLOW-QD 2024-05-27 19:48:17 800 mL/min F WEIGHT - PRE DAY 1 2024-05-27 19:48:17 87.5 kg F VM (KT/V MEAN VOL) 2024-05-27 19:48:17 56.1 F spKt/V 2024-05-27 19:48:17 1.15 F VT (KT/V TX VOL) 2024-05-27 19:48:17 60.5 L F nPCR 2024-05-27 19:48:17 0.69 G/KG/D F BSA CAITY 2024-05-27 19:48:17 2.15 sq m F URR% 2024-05-27 19:48:17 66 % F PRESCRIBED DAYS/WEEK 2024-05-27 19:48:17 3 Day/Wk F TBW (Boyd) 2024-05-27 19:48:17 45.45 Liters F Dialyzer ANGELA 2024-05-27 19:48:17 1626 Calc F LENGTH OF DIALYSIS 2024-05-27 19:48:17 214 min F Residual kt/v 2024-05-27 19:48:17 F Total Kt/V 2024-05-27 19:48:17 1.15 F CURRENT KRU 2024-05-27 19:48:17 F TOTAL HOURS/WEEK DIALYSIS 2024-05-27 19:48:17 10 hrs F stdKT/V Total 2024-05-27 19:48:17 N/A F eKt/V 2024-05-27 19:48:17 0.99 F Std Renal KT/V 2024-05-27 19:48:17 N/A F WEIGHT (KG) 2024-05-27 19:48:17 88 kg F stdKt/V (DIAL) 2024-05-27 19:48:17 N/A F AMPUTATE FACTOR 2024-05-27 19:48:17 0 F BLOOD FLOW-QWB 2024-05-27 19:48:17 444 F PATIENT AGE 2024-05-27 19:48:17 68 Years F HEIGHT IN INCHES 2024-05-27 19:48:17 74 Inches F Urea nitrogen [Mass/volume] in Serum or Plasma 2024-05-27 19:46:14 47 mg/dL F 9.0-23.0 Urea nitrogen [Mass/volume] in Serum or Plasma --post dialysis 2024-05-27 18:16:16 16 mg/dL F 9.0-23.0 Creatinine [Mass/volume] in Serum or Plasma 2024-05-20 15:51:14 10.33 mg/dL F 0.7-1.3 Creatinine [Mass/volume] in Serum or Plasma 2024-04-22 19:16:17 11.07 mg/dL F 0.7-1.3 Creatinine [Mass/volume] in Serum or Plasma 2024-03-21 16:16:25 10.36 mg/dL F 0.7-1.3 Creatinine [Mass/volume] in Serum or Plasma 2024-02-16 20:10:20 11.28 mg/dL F 0.7-1.3 Creatinine [Mass/volume] in Serum or Plasma 2023-12-16 19:14:28 10.14 mg/dL F 0.7-1.3 Creatinine [Mass/volume] in Serum or Plasma 2023-11-17 01:08:31 11.45 mg/dL F 0.7-1.3 Creatinine [Mass/volume] in Serum or Plasma 2023-10-24 07:23:14 F Canceled - Specimen not received 5 days past draw date Creatinine [Mass/volume] in Serum or Plasma 2023-09-14 21:28:44 12.11 mg/dL F 0.7-1.3 Creatinine [Mass/volume] in Serum or Plasma 2023-08-17 13:07:35 12.18 mg/dL F 0.7-1.3 Creatinine [Mass/volume] in Serum or Plasma 2023-07-21 01:34:04 12.6 mg/dL F 0.7-1.3 Creatinine [Mass/volume] in Serum or Plasma 2023-06-15 17:55:58 12.1 mg/dL F 0.7-1.3 Creatinine [Mass/volume] in Serum or Plasma 2023-05-20 21:32:15 9.41 mg/dL F 0.7-1.3 WEIGHT - POST DAY 1 2023-04-20 22:48:50 93.1 kg F HEIGHT IN INCHES 2023-04-20 22:48:50 68 Inches F URR% 2023-04-20 22:48:50 59 % F DIALYZER FLOW-QD 2023-04-20 22:48:50 414 mL/min F Residual kt/v 2023-04-20 22:48:50 F BSA CAITY 2023-04-20 22:48:50 2.07 sq m F VT (KT/V TX VOL) 2023-04-20 22:48:50 51.6 L F PRESCRIBED DAYS/WEEK 2023-04-20 22:48:50 3 Day/Wk F nPCR 2023-04-20 22:48:50 0.92 G/KG/D F spKt/V 2023-04-20 22:48:50 0.95 F stdKT/V Total 2023-04-20 22:48:50 N/A F BLOOD FLOW-QWB 2023-04-20 22:48:50 443 F VM (KT/V MEAN VOL) 2023-04-20 22:48:50 50.3 F LENGTH OF DIALYSIS 2023-04-20 22:48:50 189 min F Total Kt/V 2023-04-20 22:48:50 0.95 F Std Renal KT/V 2023-04-20 22:48:50 N/A F WEIGHT - PRE DAY 1 2023-04-20 22:48:50 92.8 kg F eKt/V 2023-04-20 22:48:50 0.82 F KT/V PRESCRIBED 2023-04-20 22:48:50 1.38 F stdKt/V (DIAL) 2023-04-20 22:48:50 N/A F PATIENT AGE 2023-04-20 22:48:50 67 Years F TBW (Boyd) 2023-04-20 22:48:50 47.83 Liters F WEIGHT (KG) 2023-04-20 22:48:50 93.5 kg F Dialyzer ANGELA 2023-04-20 22:48:50 1218 Calc F AMPUTATE FACTOR 2023-04-20 22:48:50 0 F CURRENT KRU 2023-04-20 22:48:50 F TOTAL HOURS/WEEK DIALYSIS 2023-04-20 22:48:50 9 hrs F Creatinine [Mass/volume] in Serum or Plasma 2023-04-20 22:47:42 12.43 mg/dL F 0.7-1.3 Urea nitrogen [Mass/volume] in Serum or Plasma 2023-04-20 22:47:42 79 mg/dL F 9.0-23.0 Urea nitrogen [Mass/volume] in Serum or Plasma --post dialysis 2023-04-20 17:35:39 32 mg/dL F 9.0-23.0 Residual kt/v 2023-03-27 22:59:41 F TBW (Boyd) 2023-03-27 22:59:41 47.79 Liters F WEIGHT - PRE DAY 1 2023-03-27 22:59:41 94.4 kg F DIALYZER FLOW-QD 2023-03-27 22:59:41 800 mL/min F stdKt/V (DIAL) 2023-03-27 22:59:41 N/A F WEIGHT (KG) 2023-03-27 22:59:41 91.5 kg F stdKT/V Total 2023-03-27 22:59:41 N/A F PATIENT AGE 2023-03-27 22:59:41 67 Years F VT (KT/V TX VOL) 2023-03-27 22:59:41 51.4 L F CURRENT KRU 2023-03-27 22:59:41 F LENGTH OF DIALYSIS 2023-03-27 22:59:41 213 min F spKt/V 2023-03-27 22:59:41 1.13 F nPCR 2023-03-27 22:59:41 1.02 G/KG/D F Dialyzer ANGELA 2023-03-27 22:59:41 1218 Calc F TOTAL HOURS/WEEK DIALYSIS 2023-03-27 22:59:41 10 hrs F BLOOD FLOW-QWB 2023-03-27 22:59:41 356 F VM (KT/V MEAN VOL) 2023-03-27 22:59:41 51.5 F HEIGHT IN INCHES 2023-03-27 22:59:41 68 Inches F Total Kt/V 2023-03-27 22:59:41 1.13 F AMPUTATE FACTOR 2023-03-27 22:59:41 0 F eKt/V 2023-03-27 22:59:41 0.98 F URR% 2023-03-27 22:59:41 63 % F KT/V PRESCRIBED 2023-03-27 22:59:41 1.45 F BSA CAITY 2023-03-27 22:59:41 2.05 sq m F WEIGHT - POST DAY 1 2023-03-27 22:59:41 93 kg F Std Renal KT/V 2023-03-27 22:59:41 N/A F PRESCRIBED DAYS/WEEK 2023-03-27 22:59:41 3 Day/Wk F Urea nitrogen [Mass/volume] in Serum or Plasma 2023-03-27 22:58:27 57 mg/dL F 9.0-23.0 Urea nitrogen [Mass/volume] in Serum or Plasma --post dialysis 2023-03-27 21:20:26 21 mg/dL F 9.0-23.0 BSA CAITY 2023-03-20 21:23:37 2.07 sq m F CURRENT KRU 2023-03-20 21:23:37 F stdKt/V (DIAL) 2023-03-20 21:23:37 N/A F WEIGHT (KG) 2023-03-20 21:23:37 93.2 kg F TBW (Boyd) 2023-03-20 21:23:37 45.25 Liters F Dialyzer ANGELA 2023-03-20 21:23:37 1218 Calc F Std Renal KT/V 2023-03-20 21:23:37 N/A F eKt/V 2023-03-20 21:23:37 0.9 F VT (KT/V TX VOL) 2023-03-20 21:23:37 51.5 L F HEIGHT IN INCHES 2023-03-20 21:23:37 68 Inches F Total Kt/V 2023-03-20 21:23:37 1.04 F KT/V PRESCRIBED 2023-03-20 21:23:37 1.49 F nPCR 2023-03-20 21:23:37 0.37 G/KG/D F spKt/V 2023-03-20 21:23:37 1.04 F AMPUTATE FACTOR 2023-03-20 21:23:37 0 F WEIGHT - POST DAY 1 2023-03-20 21:23:37 91.4 kg F Residual kt/v 2023-03-20 21:23:37 F TOTAL HOURS/WEEK DIALYSIS 2023-03-20 21:23:37 3 hrs F BLOOD FLOW-QWB 2023-03-20 21:23:37 356 F URR% 2023-03-20 21:23:37 63 % F stdKT/V Total 2023-03-20 21:23:37 N/A F PATIENT AGE 2023-03-20 21:23:37 67 Years F VM (KT/V MEAN VOL) 2023-03-20 21:23:37 51.5 F WEIGHT - PRE DAY 1 2023-03-20 21:23:37 91.8 kg F DIALYZER FLOW-QD 2023-03-20 21:23:37 500 mL/min F PRESCRIBED DAYS/WEEK 2023-03-20 21:23:37 3 Day/Wk F LENGTH OF DIALYSIS 2023-03-20 21:23:37 212 min F Creatinine [Mass/volume] in Serum or Plasma 2023-03-20 21:22:31 10.45 mg/dL F 0.7-1.3 Urea nitrogen [Mass/volume] in Serum or Plasma 2023-03-20 21:22:31 52 mg/dL F 9.0-23.0 Urea nitrogen [Mass/volume] in Serum or Plasma --post dialysis 2023-03-20 19:17:26 19 mg/dL F 9.0-23.0 Anemia Description Draw Date Result/Unit Status Ref Range Result Comments HCT CALC HGBX3 2024-08-15 13:19:51 30.9 % F 42.0-52.0 Erythrocyte distribution width [Ratio] by Automated count 2024-08-15 13:19:13 19.8 % F 11.0-15.0 MCH [Entitic mass] by Automated count 2024-08-15 13:19:13 30.8 pg F 25.9-34.2 MCHC [Mass/volume] by Automated count 2024-08-15 13:19:13 31.6 g/dL F 29.6-35.3 Platelets [#/volume] in Blood by Automated count 2024-08-15 13:19:13 78 x 10^3 cells/uL F 140.0-450.0 Erythrocytes [#/volume] in Blood by Automated count 2024-08-15 13:19:12 3.34 x 10^6 cells/uL F 4.6-6.2 Hematocrit [Volume Fraction] of Blood by Automated count 2024-08-15 13:19:12 32.6 % F 41.0-53.0 MCV [Entitic volume] by Automated count 2024-08-15 13:19:12 97.6 fL F 80.0-100.0 Hemoglobin [Mass/volume] in Blood 2024-08-15 13:19:12 10.3 g/dL F 14.0-18.0 HCT CALC HGBX3 2024-08-01 14:07:10 30.3 % F 42.0-52.0 Hemoglobin [Mass/volume] in Blood 2024-08-01 14:06:10 10.1 g/dL F 14.0-18.0 IRON SATURATION 2024-07-19 09:05:20 27 % F 21.0-49.0 TIBC 2024-07-19 09:05:20 153 ug/dL F 250.0-425.0 Ferritin [Mass/volume] in Serum or Plasma 2024-07-19 08:18:17 377 ng/mL F 22.0-322.0 Iron [Mass/volume] in Serum or Plasma 2024-07-19 06:54:15 41 ug/dL F 65.0-175.0 Iron binding capacity.unsaturated [Mass/volume] in Serum or Plasma 2024-07-19 06:54:15 112 ug/dL F 75.0-360.0 HCT CALC HGBX3 2024-07-18 16:24:59 33 % F 42.0-52.0 Reticulocytes/100 erythrocytes in Blood by Automated count 2024-07-18 16:24:18 0.86 % F 0.7-2.5 Erythrocyte distribution width [Ratio] by Automated count 2024-07-18 16:24:18 17.9 % F 11.0-15.0 Hemoglobin [Mass/volume] in Blood 2024-07-18 16:24:18 11 g/dL F 14.0-18.0 Platelets [#/volume] in Blood by Automated count 2024-07-18 16:24:18 95 x 10^3 cells/uL F 140.0-450.0 MCHC [Mass/volume] by Automated count 2024-07-18 16:24:18 31.7 g/dL F 29.6-35.3 Erythrocytes [#/volume] in Blood by Automated count 2024-07-18 16:24:18 3.65 x 10^6 cells/uL F 4.6-6.2 Hematocrit [Volume Fraction] of Blood by Automated count 2024-07-18 16:24:18 34.8 % F 41.0-53.0 MCV [Entitic volume] by Automated count 2024-07-18 16:24:18 95.2 fL F 80.0-100.0 MCH [Entitic mass] by Automated count 2024-07-18 16:24:17 30.2 pg F 25.9-34.2 HCT CALC HGBX3 2024-07-05 01:19:08 34.8 % F 42.0-52.0 Hemoglobin [Mass/volume] in Blood 2024-07-05 01:18:12 11.6 g/dL F 14.0-18.0 HCT CALC HGBX3 2024-06-20 16:37:57 32.1 % F 42.0-52.0 Erythrocyte distribution width [Ratio] by Automated count 2024-06-20 16:37:14 20.2 % F 11.0-15.0 Hemoglobin [Mass/volume] in Blood 2024-06-20 16:37:14 10.7 g/dL F 14.0-18.0 Platelets [#/volume] in Blood by Automated count 2024-06-20 16:37:14 85 x 10^3 cells/uL F 140.0-450.0 MCHC [Mass/volume] by Automated count 2024-06-20 16:37:14 31.4 g/dL F 29.6-35.3 MCH [Entitic mass] by Automated count 2024-06-20 16:37:14 30.8 pg F 25.9-34.2 Hematocrit [Volume Fraction] of Blood by Automated count 2024-06-20 16:37:14 34.1 % F 41.0-53.0 Erythrocytes [#/volume] in Blood by Automated count 2024-06-20 16:37:14 3.48 x 10^6 cells/uL F 4.6-6.2 MCV [Entitic volume] by Automated count 2024-06-20 16:37:14 98.1 fL F 80.0-100.0 HCT CALC HGBX3 2024-06-06 18:53:52 30.6 % F 42.0-52.0 Hemoglobin [Mass/volume] in Blood 2024-06-06 18:45:13 10.2 g/dL F 14.0-18.0 HCT CALC HGBX3 2024-05-20 19:05:53 30.9 % F 42.0-52.0 Erythrocyte distribution width [Ratio] by Automated count 2024-05-20 19:05:11 20.7 % F 11.0-15.0 Hemoglobin [Mass/volume] in Blood 2024-05-20 19:05:11 10.3 g/dL F 14.0-18.0 Platelets [#/volume] in Blood by Automated count 2024-05-20 19:05:11 96 x 10^3 cells/uL F 140.0-450.0 MCH [Entitic mass] by Automated count 2024-05-20 19:05:11 31.2 pg F 25.9-34.2 MCHC [Mass/volume] by Automated count 2024-05-20 19:05:11 30.9 g/dL F 29.6-35.3 Erythrocytes [#/volume] in Blood by Automated count 2024-05-20 19:05:11 3.3 x 10'6 cells/uL F 4.6-6.2 Hematocrit [Volume Fraction] of Blood by Automated count 2024-05-20 19:05:11 33.3 % F 41.0-53.0 MCV [Entitic volume] by Automated count 2024-05-20 19:05:11 100.9 fL F 80.0-100.0 Ferritin [Mass/volume] in Serum or Plasma 2024-04-23 04:59:38 563 ng/mL F 22.0-322.0 IRON SATURATION 2024-04-23 02:44:52 24 % F 21.0-49.0 TIBC 2024-04-23 02:44:52 208 ug/dL F 250.0-425.0 Iron [Mass/volume] in Serum or Plasma 2024-04-23 02:36:46 49 ug/dL F 65.0-175.0 Iron binding capacity.unsaturated [Mass/volume] in Serum or Plasma 2024-04-23 02:36:46 159 ug/dL F 75.0-360.0 HCT CALC HGBX3 2024-04-22 21:05:04 24.6 % F 42.0-52.0 Erythrocyte distribution width [Ratio] by Automated count 2024-04-22 21:04:13 19.3 % F 11.0-15.0 Hemoglobin [Mass/volume] in Blood 2024-04-22 21:04:13 8.2 g/dL F 14.0-18.0 Platelets [#/volume] in Blood by Automated count 2024-04-22 21:04:13 130 x 10^3 cells/uL F 140.0-450.0 MCH [Entitic mass] by Automated count 2024-04-22 21:04:13 30.4 pg F 25.9-34.2 MCHC [Mass/volume] by Automated count 2024-04-22 21:04:13 30.8 g/dL F 29.6-35.3 Erythrocytes [#/volume] in Blood by Automated count 2024-04-22 21:04:13 2.69 x 10'6 cells/uL F 4.6-6.2 Hematocrit [Volume Fraction] of Blood by Automated count 2024-04-22 21:04:13 26.6 % F 41.0-53.0 MCV [Entitic volume] by Automated count 2024-04-22 21:04:13 98.9 fL F 80.0-100.0 HCT CALC HGBX3 2024-03-21 15:20:44 25.5 % F 42.0-52.0 Platelets [#/volume] in Blood by Automated count 2024-03-21 15:20:16 122 x 10^3 cells/uL F 140.0-450.0 Hematocrit [Volume Fraction] of Blood by Automated count 2024-03-21 15:20:16 27.8 % F 41.0-53.0 Erythrocyte distribution width [Ratio] by Automated count 2024-03-21 15:20:14 17.9 % F 11.0-15.0 Hemoglobin [Mass/volume] in Blood 2024-03-21 15:20:14 8.5 g/dL F 14.0-18.0 MCH [Entitic mass] by Automated count 2024-03-21 15:20:14 30.3 pg F 25.9-34.2 MCHC [Mass/volume] by Automated count 2024-03-21 15:20:14 30.5 g/dL F 29.6-35.3 Erythrocytes [#/volume] in Blood by Automated count 2024-03-21 15:20:14 2.79 x 10'6 cells/uL F 4.6-6.2 MCV [Entitic volume] by Automated count 2024-03-21 15:20:14 99.4 fL F 80.0-100.0 HCT CALC HGBX3 2024-02-16 17:17:23 28.2 % F 42.0-52.0 Hemoglobin [Mass/volume] in Blood 2024-02-16 17:16:17 9.4 g/dL F 14.0-18.0 HCT CALC HGBX3 2023-12-16 23:03:15 33 % F 42.0-52.0 Erythrocyte distribution width [Ratio] by Automated count 2023-12-16 23:02:26 16.2 % F 11.0-15.0 Hemoglobin [Mass/volume] in Blood 2023-12-16 23:02:26 11 g/dL F 14.0-18.0 Platelets [#/volume] in Blood by Automated count 2023-12-16 23:02:26 98 x 10^3 cells/uL F 140.0-450.0 MCH [Entitic mass] by Automated count 2023-12-16 23:02:26 31.9 pg F 25.9-34.2 MCHC [Mass/volume] by Automated count 2023-12-16 23:02:26 31.1 g/dL F 29.6-35.3 Erythrocytes [#/volume] in Blood by Automated count 2023-12-16 23:02:26 3.45 x 10'6 cells/uL F 4.6-6.2 Hematocrit [Volume Fraction] of Blood by Automated count 2023-12-16 23:02:26 35.4 % F 41.0-53.0 MCV [Entitic volume] by Automated count 2023-12-16 23:02:26 102.5 fL F 80.0-100.0 HCT CALC HGBX3 2023-11-17 03:11:21 32.7 % F 42.0-52.0 Erythrocyte distribution width [Ratio] by Automated count 2023-11-17 03:10:34 16.3 % F 11.0-15.0 Hemoglobin [Mass/volume] in Blood 2023-11-17 03:10:34 10.9 g/dL F 14.0-18.0 Platelets [#/volume] in Blood by Automated count 2023-11-17 03:10:34 115 x 10^3 cells/uL F 140.0-450.0 MCH [Entitic mass] by Automated count 2023-11-17 03:10:34 32.9 pg F 25.9-34.2 MCHC [Mass/volume] by Automated count 2023-11-17 03:10:34 31.4 g/dL F 29.6-35.3 Erythrocytes [#/volume] in Blood by Automated count 2023-11-17 03:10:34 3.33 x 10'6 cells/uL F 4.6-6.2 Hematocrit [Volume Fraction] of Blood by Automated count 2023-11-17 03:10:34 34.8 % F 41.0-53.0 MCV [Entitic volume] by Automated count 2023-11-17 03:10:34 104.6 fL F 80.0-100.0 TIBC 2023-10-24 07:34:04 F Canceled - Specimen not received 5 days past draw date IRON SATURATION 2023-10-24 07:34:04 F Canceled - Specimen not received 5 days past draw date Iron [Mass/volume] in Serum or Plasma 2023-10-24 07:23:14 F Canceled - Specimen not received 5 days past draw date Iron binding capacity.unsaturated [Mass/volume] in Serum or Plasma 2023-10-24 07:23:14 F Canceled - Specimen not received 5 days past draw date HCT CALC HGBX3 2023-10-22 17:26:38 F RECOLLECT - OUTDATED SPECIMEN Erythrocytes [#/volume] in Blood by Automated count 2023-10-22 17:26:07 F RECOLLECT - OUTDATED SPECIMEN MCV [Entitic volume] by Automated count 2023-10-22 17:26:07 F RECOLLECT - OUTDATED SPECIMEN Hematocrit [Volume Fraction] of Blood by Automated count 2023-10-22 17:26:07 F RECOLLECT - OUTDATED SPECIMEN MCHC [Mass/volume] by Automated count 2023-10-22 17:26:07 F RECOLLECT - OUTDATED SPECIMEN Platelets [#/volume] in Blood by Automated count 2023-10-22 17:26:07 F RECOLLECT - OUTDATED SPECIMEN Hemoglobin [Mass/volume] in Blood 2023-10-22 17:26:07 F RECOLLECT - OUTDATED SPECIMEN MCH [Entitic mass] by Automated count 2023-10-22 17:26:07 F RECOLLECT - OUTDATED SPECIMEN Erythrocyte distribution width [Ratio] by Automated count 2023-10-22 17:26:07 F RECOLLECT - OUTDATED SPECIMEN Ferritin [Mass/volume] in Serum or Plasma 2023-10-22 03:44:51 101 ng/mL F 22.0-322.0 HCT CALC HGBX3 2023-09-15 00:44:53 28.5 % F 42.0-52.0 Erythrocyte distribution width [Ratio] by Automated count 2023-09-15 00:44:45 17.7 % F 11.0-15.0 Hemoglobin [Mass/volume] in Blood 2023-09-15 00:44:45 9.5 g/dL F 14.0-18.0 Platelets [#/volume] in Blood by Automated count 2023-09-15 00:44:45 139 x 10^3 cells/uL F 140.0-450.0 MCH [Entitic mass] by Automated count 2023-09-15 00:44:45 32 pg F 25.9-34.2 MCHC [Mass/volume] by Automated count 2023-09-15 00:44:45 31.2 g/dL F 29.6-35.3 Erythrocytes [#/volume] in Blood by Automated count 2023-09-15 00:44:45 2.96 x 10'6 cells/uL F 4.6-6.2 Hematocrit [Volume Fraction] of Blood by Automated count 2023-09-15 00:44:45 30.3 % F 41.0-53.0 MCV [Entitic volume] by Automated count 2023-09-15 00:44:45 102.3 fL F 80.0-100.0 HCT CALC HGBX3 2023-08-17 15:36:02 30.9 % F 42.0-52.0 Erythrocyte distribution width [Ratio] by Automated count 2023-08-17 15:35:38 17.8 % F 11.0-15.0 Hemoglobin [Mass/volume] in Blood 2023-08-17 15:35:38 10.3 g/dL F 14.0-18.0 Platelets [#/volume] in Blood by Automated count 2023-08-17 15:35:38 117 x 10^3 cells/uL F 140.0-450.0 MCH [Entitic mass] by Automated count 2023-08-17 15:35:38 31.4 pg F 25.9-34.2 MCHC [Mass/volume] by Automated count 2023-08-17 15:35:38 31.7 g/dL F 29.6-35.3 Hematocrit [Volume Fraction] of Blood by Automated count 2023-08-17 15:35:38 32.3 % F 41.0-53.0 Erythrocytes [#/volume] in Blood by Automated count 2023-08-17 15:35:38 3.27 x 10'6 cells/uL F 4.6-6.2 MCV [Entitic volume] by Automated count 2023-08-17 15:35:38 98.9 fL F 80.0-100.0 Ferritin [Mass/volume] in Serum or Plasma 2023-07-21 07:21:58 237 ng/mL F 22.0-322.0 IRON SATURATION 2023-07-21 06:22:57 19 % F 21.0-49.0 TIBC 2023-07-21 06:22:57 271 ug/dL F 250.0-425.0 Iron [Mass/volume] in Serum or Plasma 2023-07-21 06:15:12 51 ug/dL F 65.0-175.0 Iron binding capacity.unsaturated [Mass/volume] in Serum or Plasma 2023-07-21 06:15:09 220 ug/dL F 75.0-360.0 HCT CALC HGBX3 2023-07-21 03:00:54 29.7 % F 42.0-52.0 Reticulocytes/100 erythrocytes in Blood by Automated count 2023-07-21 03:00:44 1.72 % F 0.7-2.5 Erythrocyte distribution width [Ratio] by Automated count 2023-07-21 03:00:44 17.3 % F 11.0-15.0 Hemoglobin [Mass/volume] in Blood 2023-07-21 03:00:44 9.9 g/dL F 14.0-18.0 Platelets [#/volume] in Blood by Automated count 2023-07-21 03:00:44 159 x 10^3 cells/uL F 140.0-450.0 MCH [Entitic mass] by Automated count 2023-07-21 03:00:44 30.7 pg F 25.9-34.2 MCHC [Mass/volume] by Automated count 2023-07-21 03:00:44 31 g/dL F 29.6-35.3 Erythrocytes [#/volume] in Blood by Automated count 2023-07-21 03:00:44 3.21 x 10'6 cells/uL F 4.6-6.2 Hematocrit [Volume Fraction] of Blood by Automated count 2023-07-21 03:00:44 31.9 % F 41.0-53.0 MCV [Entitic volume] by Automated count 2023-07-21 03:00:44 99.2 fL F 80.0-100.0 HCT CALC HGBX3 2023-06-15 22:51:49 27 % F 42.0-52.0 Erythrocyte distribution width [Ratio] by Automated count 2023-06-15 22:51:41 17 % F 11.0-15.0 Hemoglobin [Mass/volume] in Blood 2023-06-15 22:51:41 9 g/dL F 14.0-18.0 Platelets [#/volume] in Blood by Automated count 2023-06-15 22:51:41 126 x 10^3 cells/uL F 140.0-450.0 MCHC [Mass/volume] by Automated count 2023-06-15 22:51:41 32.8 g/dL F 29.6-35.3 MCH [Entitic mass] by Automated count 2023-06-15 22:51:41 30.8 pg F 25.9-34.2 Erythrocytes [#/volume] in Blood by Automated count 2023-06-15 22:51:41 2.92 x 10'6 cells/uL F 4.6-6.2 Hematocrit [Volume Fraction] of Blood by Automated count 2023-06-15 22:51:41 27.4 % F 41.0-53.0 MCV [Entitic volume] by Automated count 2023-06-15 22:51:41 93.9 fL F 80.0-100.0 HCT CALC HGBX3 2023-05-21 02:44:48 24.9 % F 42.0-52.0 Hemoglobin [Mass/volume] in Blood 2023-05-21 02:44:41 8.3 g/dL F 14.0-18.0 MCH [Entitic mass] by Automated count 2023-05-21 02:44:41 30.7 pg F 25.9-34.2 Erythrocytes [#/volume] in Blood by Automated count 2023-05-21 02:44:41 2.69 x 10'6 cells/uL F 4.6-6.2 Hematocrit [Volume Fraction] of Blood by Automated count 2023-05-21 02:44:41 25.6 % F 41.0-53.0 MCV [Entitic volume] by Automated count 2023-05-21 02:44:41 94.9 fL F 80.0-100.0 Erythrocyte distribution width [Ratio] by Automated count 2023-05-21 02:44:37 16.6 % F 11.0-15.0 Platelets [#/volume] in Blood by Automated count 2023-05-21 02:44:37 154 x 10^3 cells/uL F 140.0-450.0 MCHC [Mass/volume] by Automated count 2023-05-21 02:44:37 32.3 g/dL F 29.6-35.3 IRON SATURATION 2023-04-21 08:42:41 20 % F 21.0-49.0 TIBC 2023-04-21 08:42:41 271 ug/dL F 250.0-425.0 Iron [Mass/volume] in Serum or Plasma 2023-04-21 08:40:57 54 ug/dL F 65.0-175.0 Iron binding capacity.unsaturated [Mass/volume] in Serum or Plasma 2023-04-21 08:40:57 217 ug/dL F 75.0-360.0 Ferritin [Mass/volume] in Serum or Plasma 2023-04-21 03:09:48 248 ng/mL F 22.0-322.0 HCT CALC HGBX3 2023-04-20 23:26:17 28.2 % F 42.0-52.0 Erythrocyte distribution width [Ratio] by Automated count 2023-04-20 23:25:29 17.1 % F 11.0-15.0 Hemoglobin [Mass/volume] in Blood 2023-04-20 23:25: 9.4 g/dL F 14.0-18.0 Platelets [#/volume] in Blood by Automated count 2023-04-20 23:25:29 106 x 10^3 cells/uL F 140.0-450.0 MCH [Entitic mass] by Automated count 2023-04-20 23:25: 30.5 pg F 25.9-34.2 MCHC [Mass/volume] by Automated count 2023-04-20 23:25:29 32.1 g/dL F 29.6-35.3 Erythrocytes [#/volume] in Blood by Automated count 2023-04-20 23:25: 3.09 x 10'6 cells/uL F 4.6-6.2 Hematocrit [Volume Fraction] of Blood by Automated count 2023-04-20 23:25:29 29.4 % F 41.0-53.0 MCV [Entitic volume] by Automated count 2023-04-20 23:25:29 94.9 fL F 80.0-100.0 IRON SATURATION 2023-03-21 02:55:02 14 % F 21.0-49.0 TIBC 2023-03-21 02:55:02 225 ug/dL F 250.0-425.0 Iron [Mass/volume] in Serum or Plasma 2023-03-21 02:54:00 31 ug/dL F 65.0-175.0 Iron binding capacity.unsaturated [Mass/volume] in Serum or Plasma 2023-03-21 02:54:00 194 ug/dL F 75.0-360.0 HCT CALC HGBX3 2023-03-21 01:46:24 24 % F 42.0-52.0 Ferritin [Mass/volume] in Serum or Plasma 2023-03-21 01:44:54 379 ng/mL F 22.0-322.0 Hemoglobin [Mass/volume] in Blood 2023-03-21 00:00:28 8 g/dL F 14.0-18.0 Reticulocytes/100 erythrocytes in Blood by Automated count 2023-03-21 00:00:27 2.65 % F 0.7-2.5 Erythrocyte distribution width [Ratio] by Automated count 2023-03-21 00:00:27 16.5 % F 11.0-15.0 Platelets [#/volume] in Blood by Automated count 2023-03-21 00:00:27 144 x 10^3 cells/uL F 140.0-450.0 MCH [Entitic mass] by Automated count 2023-03-21 00:00:27 30.1 pg F 25.9-34.2 MCHC [Mass/volume] by Automated count 2023-03-21 00:00:27 31.5 g/dL F 29.6-35.3 Erythrocytes [#/volume] in Blood by Automated count 2023-03-21 00:00:27 2.68 x 10'6 cells/uL F 4.6-6.2 Hematocrit [Volume Fraction] of Blood by Automated count 2023-03-21 00:00:27 25.5 % F 41.0-53.0 MCV [Entitic volume] by Automated count 2023-03-21 00:00:27 95.5 fL F 80.0-100.0 Comorbidities Description Draw Date Result/Unit Status Ref Range Result Comments Hemoglobin A1c/Hemoglobin.total in Blood 2024-07-18 16:47:17 4.6 %A1c F 0.0-5.6 Hemoglobin A1c/Hemoglobin.total in Blood 2023-07-21 07:34:15 5 %A1c F 0.0-5.6 Hemoglobin A1c/Hemoglobin.total in Blood 2023-03-21 02:52:52 5.5 %A1c F 0.0-5.6 FluidBP Description Draw Date Result/Unit Status Ref Range Result Comments Sodium [Moles/volume] in Serum or Plasma 2024-08-15 16:13:39 137 mEq/L F 132.0-146.0 Sodium [Moles/volume] in Serum or Plasma 2024-07-19 06:54:43 136 mEq/L F 132.0-146.0 Sodium [Moles/volume] in Serum or Plasma 2024-06-21 08:13:48 136 mEq/L F 132.0-146.0 Sodium [Moles/volume] in Serum or Plasma 2024-05-20 18:59:42 134 mEq/L F 132.0-146.0 Sodium [Moles/volume] in Serum or Plasma 2024-04-23 02:36:46 136 mEq/L F 132.0-146.0 Sodium [Moles/volume] in Serum or Plasma 2024-03-22 06:49:10 137 mEq/L F 132.0-146.0 Sodium [Moles/volume] in Serum or Plasma 2024-02-17 05:02:56 140 mEq/L F 132.0-146.0 Sodium [Moles/volume] in Serum or Plasma 2023-12-17 04:30:45 139 mEq/L F 132.0-146.0 Sodium [Moles/volume] in Serum or Plasma 2023-11-17 06:46:11 139 mEq/L F 132.0-146.0 Sodium [Moles/volume] in Serum or Plasma 2023-10-24 07:23:14 F Canceled - Specimen not received 5 days past draw date Sodium [Moles/volume] in Serum or Plasma 2023-09-15 06:49:48 137 mEq/L F 132.0-146.0 Sodium [Moles/volume] in Serum or Plasma 2023-08-17 16:18:00 143 mEq/L F 132.0-146.0 Sodium [Moles/volume] in Serum or Plasma 2023-07-21 06:15:19 136 mEq/L F 132.0-146.0 Sodium [Moles/volume] in Serum or Plasma 2023-06-16 05:12:32 138 mEq/L F 132.0-146.0 Sodium [Moles/volume] in Serum or Plasma 2023-05-21 07:19:18 134 mEq/L F 132.0-146.0 Sodium [Moles/volume] in Serum or Plasma 2023-04-20 22:47:42 137 mEq/L F 132.0-146.0 Sodium [Moles/volume] in Serum or Plasma 2023-03-20 21:22:31 139 mEq/L F 132.0-146.0 General Description Draw Date Result/Unit Status Ref Range Result Comments Chloride [Moles/volume] in Serum or Plasma 2024-08-15 16:13:39 99 mEq/L F 99.0-109.0 Alanine aminotransferase [Enzymatic activity/volume] in Serum or Plasma 2024-08-15 13:42:15 32 U/L F 10.0-49.0 Aspartate aminotransferase [Enzymatic activity/volume] in Serum or Plasma 2024-08-15 13:42:15 23 U/L F 0.0-33.0 Chloride [Moles/volume] in Serum or Plasma 2024-07-19 06:54:43 94 mEq/L F 99.0-109.0 Aspartate aminotransferase [Enzymatic activity/volume] in Serum or Plasma 2024-07-18 19:59:18 13 U/L F 0.0-33.0 Alanine aminotransferase [Enzymatic activity/volume] in Serum or Plasma 2024-07-18 19:59:18 16 U/L F 10.0-49.0 Aluminum [Mass/volume] in Serum or Plasma 2024-07-18 17:36:16 10 ug/L F 0.0-9.0 Chloride [Moles/volume] in Serum or Plasma 2024-06-21 08:13:48 93 mEq/L F 99.0-109.0 Aspartate aminotransferase [Enzymatic activity/volume] in Serum or Plasma 2024-06-21 00:29:17 31 U/L F 0.0-33.0 Alanine aminotransferase [Enzymatic activity/volume] in Serum or Plasma 2024-06-21 00:29:17 26 U/L F 10.0-49.0 Chloride [Moles/volume] in Serum or Plasma 2024-05-20 18:59:42 99 mEq/L F 99.0-109.0 Aspartate aminotransferase [Enzymatic activity/volume] in Serum or Plasma 2024-05-20 15:51:14 18 U/L F 0.0-33.0 Alanine aminotransferase [Enzymatic activity/volume] in Serum or Plasma 2024-05-20 15:51:14 16 U/L F 10.0-49.0 Chloride [Moles/volume] in Serum or Plasma 2024-04-23 02:36:46 97 mEq/L F 99.0-109.0 Aspartate aminotransferase [Enzymatic activity/volume] in Serum or Plasma 2024-04-22 19:16:17 39 U/L F 0.0-33.0 Alanine aminotransferase [Enzymatic activity/volume] in Serum or Plasma 2024-04-22 19:16:17 23 U/L F 10.0-49.0 Chloride [Moles/volume] in Serum or Plasma 2024-03-22 06:49:10 98 mEq/L F 99.0-109.0 Aspartate aminotransferase [Enzymatic activity/volume] in Serum or Plasma 2024-03-21 16:16:25 25 U/L F 0.0-33.0 Alanine aminotransferase [Enzymatic activity/volume] in Serum or Plasma 2024-03-21 16:16:25 14 U/L F 10.0-49.0 Alanine aminotransferase [Enzymatic activity/volume] in Serum or Plasma 2024-02-16 20:10:20 9 U/L F 10.0-49.0 Chloride [Moles/volume] in Serum or Plasma 2023-12-17 04:30:45 101 mEq/L F 99.0-109.0 Alanine aminotransferase [Enzymatic activity/volume] in Serum or Plasma 2023-12-16 19:14:28 15 U/L F 10.0-49.0 Aspartate aminotransferase [Enzymatic activity/volume] in Serum or Plasma 2023-12-16 19:14:28 20 U/L F 0.0-33.0 Chloride [Moles/volume] in Serum or Plasma 2023-11-17 06:46:11 103 mEq/L F 99.0-109.0 Aspartate aminotransferase [Enzymatic activity/volume] in Serum or Plasma 2023-11-17 01:08:31 21 U/L F 0.0-33.0 Alanine aminotransferase [Enzymatic activity/volume] in Serum or Plasma 2023-11-17 01:08:31 16 U/L F 10.0-49.0 Chloride [Moles/volume] in Serum or Plasma 2023-10-24 07:23:14 F Canceled - Specimen not received 5 days past draw date Aspartate aminotransferase [Enzymatic activity/volume] in Serum or Plasma 2023-10-24 07:23:14 F Canceled - Specimen not received 5 days past draw date Alanine aminotransferase [Enzymatic activity/volume] in Serum or Plasma 2023-10-24 07:23:14 F Canceled - Specimen not received 5 days past draw date Chloride [Moles/volume] in Serum or Plasma 2023-09-15 06:49:48 97 mEq/L F 99.0-109.0 Aspartate aminotransferase [Enzymatic activity/volume] in Serum or Plasma 2023-09-14 21:28:44 18 U/L F 0.0-33.0 Alanine aminotransferase [Enzymatic activity/volume] in Serum or Plasma 2023-09-14 21:28:44 15 U/L F 10.0-49.0 Chloride [Moles/volume] in Serum or Plasma 2023-08-17 16:18:00 101 mEq/L F 99.0-109.0 Aspartate aminotransferase [Enzymatic activity/volume] in Serum or Plasma 2023-08-17 13:07:35 18 U/L F 0.0-33.0 Alanine aminotransferase [Enzymatic activity/volume] in Serum or Plasma 2023-08-17 13:07:35 17 U/L F 10.0-49.0 Chloride [Moles/volume] in Serum or Plasma 2023-07-21 06:15:19 99 mEq/L F 99.0-109.0 Aspartate aminotransferase [Enzymatic activity/volume] in Serum or Plasma 2023-07-21 01:34:04 16 U/L F 0.0-33.0 Alanine aminotransferase [Enzymatic activity/volume] in Serum or Plasma 2023-07-21 01:34:04 12 U/L F 10.0-49.0 Aluminum [Mass/volume] in Serum or Plasma 2023-07-20 20:00:52 10 ug/L F 0.0-9.0 Chloride [Moles/volume] in Serum or Plasma 2023-06-16 05:12:32 98 mEq/L F 99.0-109.0 Aspartate aminotransferase [Enzymatic activity/volume] in Serum or Plasma 2023-06-15 17:55:58 19 U/L F 0.0-33.0 Alanine aminotransferase [Enzymatic activity/volume] in Serum or Plasma 2023-06-15 17:55:58 17 U/L F 10.0-49.0 Chloride [Moles/volume] in Serum or Plasma 2023-05-21 07:19:18 94 mEq/L F 99.0-109.0 Aspartate aminotransferase [Enzymatic activity/volume] in Serum or Plasma 2023-05-20 21:32:15 23 U/L F 0.0-33.0 Alanine aminotransferase [Enzymatic activity/volume] in Serum or Plasma 2023-05-20 21:32:15 9 U/L F 10.0-49.0 Aspartate aminotransferase [Enzymatic activity/volume] in Serum or Plasma 2023-04-20 22:47:42 23 U/L F 0.0-33.0 Alanine aminotransferase [Enzymatic activity/volume] in Serum or Plasma 2023-04-20 22:47:42 20 U/L F 10.0-49.0 Chloride [Moles/volume] in Serum or Plasma 2023-04-20 22:47:42 97 mEq/L F 99.0-109.0 Aluminum [Mass/volume] in Serum or Plasma 2023-03-23 14:28:10 10 ug/L F 0.0-9.0 Aspartate aminotransferase [Enzymatic activity/volume] in Serum or Plasma 2023-03-20 21:22:31 35 U/L F 0.0-33.0 Alanine aminotransferase [Enzymatic activity/volume] in Serum or Plasma 2023-03-20 21:22:31 17 U/L F 10.0-49.0 Chloride [Moles/volume] in Serum or Plasma 2023-03-20 21:22:31 102 mEq/L F 99.0-109.0 InfectionVaccination Description Draw Date Result/Unit Status Ref Range Result Comments Lymphocytes/100 leukocytes in Blood by Automated count 2024-08-15 13:19:13 25.8 % F Leukocytes [#/volume] in Blood by Automated count 2024-08-15 13:19:13 4.5 x 10^3 cells/uL F 4.0-11.0 Lymphocytes [#/volume] in Blood by Automated count 2024-08-15 13:19:13 1169 Cells/uL F 620.0-3660.0 Neutrophils [#/volume] in Blood by Automated count 2024-08-15 13:19:13 2895 Cells/uL F 2000.0-8800. 0 Monocytes [#/volume] in Blood by Automated count 2024-08-15 13:19:13 258 Cells/uL F 0.0-1100.0 Eosinophils [#/volume] in Blood by Automated count 2024-08-15 13:19:13 204 Cells/uL F 0.0-700.0 Neutrophils/100 leukocytes in Blood by Automated count 2024-08-15 13:19:13 63.9 % F Eosinophils/100 leukocytes in Blood by Automated count 2024-08-15 13:19:13 4.5 % F Basophils/100 leukocytes in Blood by Automated count 2024-08-15 13:19:13 0.1 % F Monocytes/100 leukocytes in Blood by Automated count 2024-08-15 13:19:13 5.7 % F Basophils [#/volume] in Blood by Automated count 2024-08-15 13:19:12 5 Cells/uL F 0.0-400.0 Basophils/100 leukocytes in Blood by Automated count 2024-07-18 16:24:20 0.1 % F Monocytes/100 leukocytes in Blood by Automated count 2024-07-18 16:24:18 7.4 % F Lymphocytes/100 leukocytes in Blood by Automated count 2024-07-18 16:24:18 26.8 % F Neutrophils/100 leukocytes in Blood by Automated count 2024-07-18 16:24:18 54.2 % F Eosinophils/100 leukocytes in Blood by Automated count 2024-07-18 16:24:18 11.5 % F Leukocytes [#/volume] in Blood by Automated count 2024-07-18 16:24:18 4.2 x 10^3 cells/uL F 4.0-11.0 Lymphocytes [#/volume] in Blood by Automated count 2024-07-18 16:24:18 1118 Cells/uL F 620.0-3660.0 Monocytes [#/volume] in Blood by Automated count 2024-07-18 16:24:17 309 Cells/uL F 0.0-1100.0 Basophils [#/volume] in Blood by Automated count 2024-07-18 16:24:17 4 Cells/uL F 0.0-400.0 Eosinophils [#/volume] in Blood by Automated count 2024-07-18 16:24:17 480 Cells/uL F 0.0-700.0 Neutrophils [#/volume] in Blood by Automated count 2024-07-18 16:24:17 2260 Cells/uL F 2000.0-8800. 0 Basophils/100 leukocytes in Blood by Automated count 2024-06-20 16:37:14 0.3 % F Lymphocytes/100 leukocytes in Blood by Automated count 2024-06-20 16:37:14 25.6 % F Neutrophils/100 leukocytes in Blood by Automated count 2024-06-20 16:37:14 53.1 % F Monocytes/100 leukocytes in Blood by Automated count 2024-06-20 16:37:14 12.7 % F Eosinophils/100 leukocytes in Blood by Automated count 2024-06-20 16:37:14 8.1 % F Monocytes [#/volume] in Blood by Automated count 2024-06-20 16:37:14 380 Cells/uL F 0.0-1100.0 Basophils [#/volume] in Blood by Automated count 2024-06-20 16:37:14 9 Cells/uL F 0.0-400.0 Eosinophils [#/volume] in Blood by Automated count 2024-06-20 16:37:14 242 Cells/uL F 0.0-700.0 Neutrophils [#/volume] in Blood by Automated count 2024-06-20 16:37:14 1588 Cells/uL F 2000.0-8800. 0 Leukocytes [#/volume] in Blood by Automated count 2024-06-20 16:37:14 3 x 10^3 cells/uL F 4.0-11.0 Lymphocytes [#/volume] in Blood by Automated count 2024-06-20 16:37:14 765 Cells/uL F 620.0-3660.0 Lymphocytes/100 leukocytes in Blood by Automated count 2024-05-20 19:05:11 20.4 % F Monocytes [#/volume] in Blood by Automated count 2024-05-20 19:05:11 390 Cells/uL F 0.0-1100.0 Basophils [#/volume] in Blood by Automated count 2024-05-20 19:05:11 18 Cells/uL F 0.0-400.0 Basophils/100 leukocytes in Blood by Automated count 2024-05-20 19:05:11 0.3 % F Eosinophils [#/volume] in Blood by Automated count 2024-05-20 19:05:11 378 Cells/uL F 0.0-700.0 Neutrophils [#/volume] in Blood by Automated count 2024-05-20 19:05:11 3918 Cells/uL F 2000.0-8800. 0 Leukocytes [#/volume] in Blood by Automated count 2024-05-20 19:05:11 5.9 x 10^3 cells/uL F 4.0-11.0 Lymphocytes [#/volume] in Blood by Automated count 2024-05-20 19:05:11 1206 Cells/uL F 620.0-3660.0 Eosinophils/100 leukocytes in Blood by Automated count 2024-05-20 19:05:10 6.4 % F Neutrophils/100 leukocytes in Blood by Automated count 2024-05-20 19:05:10 66.3 % F Monocytes/100 leukocytes in Blood by Automated count 2024-05-20 19:05:10 6.6 % F Neutrophils/100 leukocytes in Blood by Automated count 2024-04-22 21:04:13 51.4 % F Monocytes/100 leukocytes in Blood by Automated count 2024-04-22 21:04:13 11.7 % F Eosinophils/100 leukocytes in Blood by Automated count 2024-04-22 21:04:13 8.2 % F Basophils/100 leukocytes in Blood by Automated count 2024-04-22 21:04:13 0.3 % F Monocytes [#/volume] in Blood by Automated count 2024-04-22 21:04:13 410 Cells/uL F 0.0-1100.0 Lymphocytes/100 leukocytes in Blood by Automated count 2024-04-22 21:04:13 28.5 % F Basophils [#/volume] in Blood by Automated count 2024-04-22 21:04:13 10 Cells/uL F 0.0-400.0 Eosinophils [#/volume] in Blood by Automated count 2024-04-22 21:04:13 287 Cells/uL F 0.0-700.0 Neutrophils [#/volume] in Blood by Automated count 2024-04-22 21:04:13 1799 Cells/uL F 2000.0-8800. 0 Leukocytes [#/volume] in Blood by Automated count 2024-04-22 21:04:13 3.5 x 10^3 cells/uL F 4.0-11.0 Lymphocytes [#/volume] in Blood by Automated count 2024-04-22 21:04:13 998 Cells/uL F 620.0-3660.0 Neutrophils [#/volume] in Blood by Automated count 2024-03-21 15:20:16 4896 Cells/uL F 2000.0-8800. 0 Monocytes/100 leukocytes in Blood by Automated count 2024-03-21 15:20:14 6.5 % F Lymphocytes/100 leukocytes in Blood by Automated count 2024-03-21 15:20:14 13.4 % F Neutrophils/100 leukocytes in Blood by Automated count 2024-03-21 15:20:14 74.3 % F Basophils/100 leukocytes in Blood by Automated count 2024-03-21 15:20:14 0.3 % F Eosinophils/100 leukocytes in Blood by Automated count 2024-03-21 15:20:14 5.6 % F Monocytes [#/volume] in Blood by Automated count 2024-03-21 15:20:14 428 Cells/uL F 0.0-1100.0 Basophils [#/volume] in Blood by Automated count 2024-03-21 15:20:14 20 Cells/uL F 0.0-400.0 Eosinophils [#/volume] in Blood by Automated count 2024-03-21 15:20:14 369 Cells/uL F 0.0-700.0 Leukocytes [#/volume] in Blood by Automated count 2024-03-21 15:20:14 6.6 x 10^3 cells/uL F 4.0-11.0 Lymphocytes [#/volume] in Blood by Automated count 2024-03-21 15:20:14 883 Cells/uL F 620.0-3660.0 Neutrophils [#/volume] in Blood by Automated count 2023-12-16 23:02:26 2644 Cell/uL F 2000.0-8800. 0 Leukocytes [#/volume] in Blood by Automated count 2023-12-16 23:02:26 4.2 x 10^3 cells/uL F 4.0-11.0 Lymphocytes [#/volume] in Blood by Automated count 2023-12-16 23:02:26 1186 Cell/uL F 620.0-3660.0 Lymphocytes/100 leukocytes in Blood by Automated count 2023-12-16 23:02:26 27.9 % F Monocytes/100 leukocytes in Blood by Automated count 2023-12-16 23:02:26 5.7 % F Neutrophils/100 leukocytes in Blood by Automated count 2023-12-16 23:02:26 62.2 % F Basophils/100 leukocytes in Blood by Automated count 2023-12-16 23:02:26 0.3 % F Eosinophils/100 leukocytes in Blood by Automated count 2023-12-16 23:02:26 3.9 % F Monocytes [#/volume] in Blood by Automated count 2023-12-16 23:02:26 242 Cell/uL F 0.0-1100.0 Basophils [#/volume] in Blood by Automated count 2023-12-16 23:02:26 13 Cell/uL F 0.0-400.0 Eosinophils [#/volume] in Blood by Automated count 2023-12-16 23:02:26 166 Cell/uL F 0.0-700.0 Neutrophils/100 leukocytes in Blood by Automated count 2023-11-17 03:10:34 61.1 % F Basophils/100 leukocytes in Blood by Automated count 2023-11-17 03:10:34 0.1 % F Eosinophils/100 leukocytes in Blood by Automated count 2023-11-17 03:10:34 4.1 % F Monocytes/100 leukocytes in Blood by Automated count 2023-11-17 03:10:34 6.1 % F Monocytes [#/volume] in Blood by Automated count 2023-11-17 03:10:34 256 Cell/uL F 0.0-1100.0 Lymphocytes/100 leukocytes in Blood by Automated count 2023-11-17 03:10:34 28.6 % F Basophils [#/volume] in Blood by Automated count 2023-11-17 03:10:34 4 Cell/uL F 0.0-400.0 Eosinophils [#/volume] in Blood by Automated count 2023-11-17 03:10:34 172 Cell/uL F 0.0-700.0 Neutrophils [#/volume] in Blood by Automated count 2023-11-17 03:10:34 2560 Cell/uL F 2000.0-8800. 0 Leukocytes [#/volume] in Blood by Automated count 2023-11-17 03:10:34 4.2 x 10^3 cells/uL F 4.0-11.0 Lymphocytes [#/volume] in Blood by Automated count 2023-11-17 03:10:34 1198 Cell/uL F 620.0-3660.0 Neutrophils/100 leukocytes in Blood by Automated count 2023-10-22 17:26:07 F RECOLLECT - OUTDATED SPECIMEN Eosinophils [#/volume] in Blood by Automated count 2023-10-22 17:26:07 F RECOLLECT - OUTDATED SPECIMEN Eosinophils/100 leukocytes in Blood by Automated count 2023-10-22 17:26:07 F RECOLLECT - OUTDATED SPECIMEN Neutrophils [#/volume] in Blood by Automated count 2023-10-22 17:26:07 F RECOLLECT - OUTDATED SPECIMEN Monocytes [#/volume] in Blood by Automated count 2023-10-22 17:26:07 F RECOLLECT - OUTDATED SPECIMEN Lymphocytes [#/volume] in Blood by Automated count 2023-10-22 17:26:07 F RECOLLECT - OUTDATED SPECIMEN Leukocytes [#/volume] in Blood by Automated count 2023-10-22 17:26:07 F RECOLLECT - OUTDATED SPECIMEN Monocytes/100 leukocytes in Blood by Automated count 2023-10-22 17:26:07 F RECOLLECT - OUTDATED SPECIMEN Basophils/100 leukocytes in Blood by Automated count 2023-10-22 17:26:07 F RECOLLECT - OUTDATED SPECIMEN Basophils [#/volume] in Blood by Automated count 2023-10-22 17:26:07 F RECOLLECT - OUTDATED SPECIMEN Lymphocytes/100 leukocytes in Blood by Automated count 2023-10-22 17:26:07 F RECOLLECT - OUTDATED SPECIMEN Lymphocytes/100 leukocytes in Blood by Automated count 2023-09-15 00:44:45 25.4 % F Eosinophils/100 leukocytes in Blood by Automated count 2023-09-15 00:44:45 3.3 % F Basophils/100 leukocytes in Blood by Automated count 2023-09-15 00:44:45 0.3 % F Neutrophils/100 leukocytes in Blood by Automated count 2023-09-15 00:44:45 65 % F Monocytes/100 leukocytes in Blood by Automated count 2023-09-15 00:44:45 5.9 % F Monocytes [#/volume] in Blood by Automated count 2023-09-15 00:44:45 237 Cell/uL F 0.0-1100.0 Basophils [#/volume] in Blood by Automated count 2023-09-15 00:44:45 12 Cell/uL F 0.0-400.0 Eosinophils [#/volume] in Blood by Automated count 2023-09-15 00:44:45 133 Cell/uL F 0.0-700.0 Neutrophils [#/volume] in Blood by Automated count 2023-09-15 00:44:45 2613 Cell/uL F 2000.0-8800. 0 Leukocytes [#/volume] in Blood by Automated count 2023-09-15 00:44:45 4 x 10^3 cells/uL F 4.0-11.0 Lymphocytes [#/volume] in Blood by Automated count 2023-09-15 00:44:45 1021 Cell/uL F 620.0-3660.0 Neutrophils/100 leukocytes in Blood by Automated count 2023-08-17 15:35:38 64.9 % F Lymphocytes/100 leukocytes in Blood by Automated count 2023-08-17 15:35:38 23.8 % F Basophils/100 leukocytes in Blood by Automated count 2023-08-17 15:35:38 0.1 % F Monocytes/100 leukocytes in Blood by Automated count 2023-08-17 15:35:38 5.9 % F Eosinophils/100 leukocytes in Blood by Automated count 2023-08-17 15:35:38 5.2 % F Monocytes [#/volume] in Blood by Automated count 2023-08-17 15:35:38 400 Cell/uL F 0.0-1100.0 Basophils [#/volume] in Blood by Automated count 2023-08-17 15:35:38 7 Cell/uL F 0.0-400.0 Eosinophils [#/volume] in Blood by Automated count 2023-08-17 15:35:38 353 Cell/uL F 0.0-700.0 Neutrophils [#/volume] in Blood by Automated count 2023-08-17 15:35:38 4400 Cell/uL F 2000.0-8800. 0 Leukocytes [#/volume] in Blood by Automated count 2023-08-17 15:35:38 6.8 x 10^3 cells/uL F 4.0-11.0 Lymphocytes [#/volume] in Blood by Automated count 2023-08-17 15:35:38 1614 Cell/uL F 620.0-3660.0 Basophils/100 leukocytes in Blood by Automated count 2023-07-21 03:00:44 0.2 % F Monocytes/100 leukocytes in Blood by Automated count 2023-07-21 03:00:44 4.7 % F Neutrophils/100 leukocytes in Blood by Automated count 2023-07-21 03:00:44 74.4 % F Lymphocytes/100 leukocytes in Blood by Automated count 2023-07-21 03:00:44 19.3 % F Eosinophils/100 leukocytes in Blood by Automated count 2023-07-21 03:00:44 1.4 % F Monocytes [#/volume] in Blood by Automated count 2023-07-21 03:00:44 284 Cell/uL F 0.0-1100.0 Basophils [#/volume] in Blood by Automated count 2023-07-21 03:00:44 12 Cell/uL F 0.0-400.0 Eosinophils [#/volume] in Blood by Automated count 2023-07-21 03:00:44 85 Cell/uL F 0.0-700.0 Neutrophils [#/volume] in Blood by Automated count 2023-07-21 03:00:44 4501 Cell/uL F 2000.0-8800. 0 Leukocytes [#/volume] in Blood by Automated count 2023-07-21 03:00:44 6 x 10^3 cells/uL F 4.0-11.0 Lymphocytes [#/volume] in Blood by Automated count 2023-07-21 03:00:44 1168 Cell/uL F 620.0-3660.0 Monocytes/100 leukocytes in Blood by Automated count 2023-06-15 22:51:41 4.9 % F Eosinophils/100 leukocytes in Blood by Automated count 2023-06-15 22:51:41 3.2 % F Basophils/100 leukocytes in Blood by Automated count 2023-06-15 22:51:41 0.2 % F Neutrophils/100 leukocytes in Blood by Automated count 2023-06-15 22:51:41 69.4 % F Lymphocytes/100 leukocytes in Blood by Automated count 2023-06-15 22:51:41 22.4 % F Monocytes [#/volume] in Blood by Automated count 2023-06-15 22:51:41 330 Cell/uL F 0.0-1100.0 Basophils [#/volume] in Blood by Automated count 2023-06-15 22:51:41 13 Cell/uL F 0.0-400.0 Eosinophils [#/volume] in Blood by Automated count 2023-06-15 22:51:41 216 Cell/uL F 0.0-700.0 Neutrophils [#/volume] in Blood by Automated count 2023-06-15 22:51:41 4678 Cell/uL F 2000.0-8800. 0 Leukocytes [#/volume] in Blood by Automated count 2023-06-15 22:51:41 6.7 x 10^3 cells/uL F 4.0-11.0 Lymphocytes [#/volume] in Blood by Automated count 2023-06-15 22:51:41 1510 Cell/uL F 620.0-3660.0 Lymphocytes/100 leukocytes in Blood by Automated count 2023-05-21 02:44:41 20 % F Basophils [#/volume] in Blood by Automated count 2023-05-21 02:44:41 21 Cell/uL F 0.0-400.0 Leukocytes [#/volume] in Blood by Automated count 2023-05-21 02:44:41 7.1 x 10^3 cells/uL F 4.0-11.0 Lymphocytes [#/volume] in Blood by Automated count 2023-05-21 02:44:41 1418 Cell/uL F 620.0-3660.0 Eosinophils/100 leukocytes in Blood by Automated count 2023-05-21 02:44:37 2.2 % F Neutrophils/100 leukocytes in Blood by Automated count 2023-05-21 02:44:37 73.7 % F Monocytes/100 leukocytes in Blood by Automated count 2023-05-21 02:44:37 3.8 % F Basophils/100 leukocytes in Blood by Automated count 2023-05-21 02:44:37 0.3 % F Monocytes [#/volume] in Blood by Automated count 2023-05-21 02:44:37 269 Cell/uL F 0.0-1100.0 Eosinophils [#/volume] in Blood by Automated count 2023-05-21 02:44:37 156 Cell/uL F 0.0-700.0 Neutrophils [#/volume] in Blood by Automated count 2023-05-21 02:44:37 5225 Cell/uL F 2000.0-8800. 0 Eosinophils/100 leukocytes in Blood by Automated count 2023-04-20 23:25:29 3.4 % F Lymphocytes/100 leukocytes in Blood by Automated count 2023-04-20 23:25:29 23 % F Neutrophils/100 leukocytes in Blood by Automated count 2023-04-20 23:25:29 66.3 % F Basophils/100 leukocytes in Blood by Automated count 2023-04-20 23:25:29 1 % F Monocytes/100 leukocytes in Blood by Automated count 2023-04-20 23:25:29 6.3 % F Monocytes [#/volume] in Blood by Automated count 2023-04-20 23:25:29 329 Cell/uL F 0.0-1100.0 Basophils [#/volume] in Blood by Automated count 2023-04-20 23:25:29 52 Cell/uL F 0.0-400.0 Eosinophils [#/volume] in Blood by Automated count 2023-04-20 23:25:29 177 Cell/uL F 0.0-700.0 Neutrophils [#/volume] in Blood by Automated count 2023-04-20 23:25:29 3461 Cell/uL F 2000.0-8800. 0 Leukocytes [#/volume] in Blood by Automated count 2023-04-20 23:25:29 5.2 x 10^3 cells/uL F 4.0-11.0 Lymphocytes [#/volume] in Blood by Automated count 2023-04-20 23:25:29 1201 Cell/uL F 620.0-3660.0 Basophils/100 leukocytes in Blood by Automated count 2023-03-21 00:00:28 0.2 % F Monocytes/100 leukocytes in Blood by Automated count 2023-03-21 00:00:28 6.5 % F Eosinophils/100 leukocytes in Blood by Automated count 2023-03-21 00:00:27 2.4 % F Neutrophils/100 leukocytes in Blood by Automated count 2023-03-21 00:00:27 75.4 % F Lymphocytes/100 leukocytes in Blood by Automated count 2023-03-21 00:00:27 15.4 % F Monocytes [#/volume] in Blood by Automated count 2023-03-21 00:00:27 411 Cell/uL F 0.0-1100.0 Basophils [#/volume] in Blood by Automated count 2023-03-21 00:00:27 13 Cell/uL F 0.0-400.0 Eosinophils [#/volume] in Blood by Automated count 2023-03-21 00:00:27 152 Cell/uL F 0.0-700.0 Neutrophils [#/volume] in Blood by Automated count 2023-03-21 00:00:27 4773 Cell/uL F 2000.0-8800. 0 Leukocytes [#/volume] in Blood by Automated count 2023-03-21 00:00:27 6.3 x 10^3 cells/uL F 4.0-11.0 Lymphocytes [#/volume] in Blood by Automated count 2023-03-21 00:00:27 975 Cell/uL F 620.0-3660.0 MineralBone Disorder Description Draw Date Result/Unit Status Ref Range Result Comments Alkaline phosphatase [Enzymatic activity/volume] in Serum or Plasma 2024-08-15 13:42:15 56 U/L F 46.0-116.0 CA CORRECTED 2024-08-01 19:33:29 8.8 mg/dL F CA/PHOS PRODUCT 2024-08-01 19:30:22 48.4 Calc F 21.0-53.0 CA*PO4 CORRCTD 2024-08-01 19:30:22 48.4 Calc F 21.0-53.0 Phosphate [Mass/volume] in Serum or Plasma 2024-08-01 19:21:02 5.5 mg/dL F 2.4-5.1 Calcium [Mass/volume] in Serum or Plasma 2024-08-01 19:21:02 8.8 mg/dL F 8.7-10.4 Parathyrin.intact [Mass/volume] in Serum or Plasma 2024-08-01 14:40:21 91 pg/mL F 18.0-80.0 25-Hydroxyvitamin D3+25-Hydroxyvitamin D2 [Mass/volume] in Serum or Plasma 2024-07-19 08:18:45 51.1 ng/mL F Alkaline phosphatase [Enzymatic activity/volume] in Serum or Plasma 2024-07-18 19:59:18 30 U/L F 46.0-116.0 CA CORRECTED 2024-07-05 10:18:26 8.3 mg/dL F CA*PO4 CORRCTD 2024-07-05 10:16:43 39 Calc F 21.0-53.0 CA/PHOS PRODUCT 2024-07-05 10:16:43 39 Calc F 21.0-53.0 Phosphate [Mass/volume] in Serum or Plasma 2024-07-05 07:54:20 4.7 mg/dL F 2.4-5.1 Calcium [Mass/volume] in Serum or Plasma 2024-07-05 07:54:20 8.3 mg/dL F 8.7-10.4 Parathyrin.intact [Mass/volume] in Serum or Plasma 2024-07-05 00:30:18 160 pg/mL F 18.0-80.0 Alkaline phosphatase [Enzymatic activity/volume] in Serum or Plasma 2024-06-21 00:29:17 51 U/L F 46.0-116.0 CA CORRECTED 2024-06-08 10:12:00 9.2 mg/dL F CA/PHOS PRODUCT 2024-06-08 10:09:26 54.6 Calc F 21.0-53.0 CA*PO4 CORRCTD 2024-06-08 10:09:26 55.1 Calc F 21.0-53.0 Phosphate [Mass/volume] in Serum or Plasma 2024-06-08 07:02:41 6 mg/dL F 2.4-5.1 Calcium [Mass/volume] in Serum or Plasma 2024-06-08 07:02:41 9.1 mg/dL F 8.7-10.4 Parathyrin.intact [Mass/volume] in Serum or Plasma 2024-06-06 19:14:16 93 pg/mL F 18.0-80.0 Alkaline phosphatase [Enzymatic activity/volume] in Serum or Plasma 2024-05-20 15:51:14 60 U/L F 46.0-116.0 Alkaline phosphatase [Enzymatic activity/volume] in Serum or Plasma 2024-04-22 19:16:17 55 U/L F 46.0-116.0 Alkaline phosphatase [Enzymatic activity/volume] in Serum or Plasma 2024-03-21 16:16:25 60 U/L F 46.0-116.0 Alkaline phosphatase [Enzymatic activity/volume] in Serum or Plasma 2023-12-16 19:14:28 48 U/L F 46.0-116.0 Alkaline phosphatase [Enzymatic activity/volume] in Serum or Plasma 2023-11-17 01:08:31 49 U/L F 46.0-116.0 Alkaline phosphatase [Enzymatic activity/volume] in Serum or Plasma 2023-10-24 07:23:14 F Canceled - Specimen not received 5 days past draw date Calcium [Mass/volume] in Serum or Plasma 2023-10-24 07:23:14 F Canceled - Specimen not received 5 days past draw date CA CORRECTED 2023-09-15 07:02:57 8.8 mg/dL F Calcium [Mass/volume] in Serum or Plasma 2023-09-15 06:49:48 8.8 mg/dL F 8.7-10.4 Alkaline phosphatase [Enzymatic activity/volume] in Serum or Plasma 2023-09-14 21:28:44 47 U/L F 46.0-116.0 Alkaline phosphatase [Enzymatic activity/volume] in Serum or Plasma 2023-08-17 13:07:35 58 U/L F 46.0-116.0 25-Hydroxyvitamin D3+25-Hydroxyvitamin D2 [Mass/volume] in Serum or Plasma 2023-07-21 06:57:37 17.4 ng/mL F Alkaline phosphatase [Enzymatic activity/volume] in Serum or Plasma 2023-07-21 01:34:04 64 U/L F 46.0-116.0 Alkaline phosphatase [Enzymatic activity/volume] in Serum or Plasma 2023-06-15 17:55:58 56 U/L F 46.0-116.0 Alkaline phosphatase [Enzymatic activity/volume] in Serum or Plasma 2023-05-20 21:32:15 59 U/L F 46.0-116.0 Alkaline phosphatase [Enzymatic activity/volume] in Serum or Plasma 2023-04-20 22:47:42 60 U/L F 46.0-116.0 25-Hydroxyvitamin D3+25-Hydroxyvitamin D2 [Mass/volume] in Serum or Plasma 2023-03-21 01:45:00 23.1 ng/mL F Parathyrin.intact [Mass/volume] in Serum or Plasma 2023-03-21 01:44:54 648 pg/mL F 18.0-80.0 Alkaline phosphatase [Enzymatic activity/volume] in Serum or Plasma 2023-03-20 21:22:31 57 U/L F 46.0-116.0 CA CORRECTED F Nutrition Description Draw Date Result/Unit Status Ref Range Result Comments Potassium [Moles/volume] in Serum or Plasma 2024-08-15 16:13:39 3.9 mEq/L F 3.5-5.5 GLOBULIN 2024-08-15 13:43:20 3.6 g/dL F 0.9-5.0 A/G RATIO 2024-08-15 13:43:20 1.1 Calc F 1.0-2.5 Glucose [Mass/volume] in Serum or Plasma 2024-08-15 13:42:15 95 mg/dL F 70.0-99.0 Bicarbonate [Moles/volume] in Serum or Plasma 2024-08-15 13:42:15 26 mEq/L F 20.0-31.0 Protein [Mass/volume] in Serum or Plasma 2024-08-15 13:42:15 7.5 g/dL F 5.7-8.2 Albumin [Mass/volume] in Serum or Plasma by Bromocresol green (BCG) dye binding method 2024-08-15 13:42:15 3.9 g/dL F 3.4-4.8 Lactate dehydrogenase [Enzymatic activity/volume] in Serum or Plasma 2024-08-15 13:42:15 311 U/L F 120.0-246.0 Potassium [Moles/volume] in Serum or Plasma 2024-08-01 19:21:02 5.1 mEq/L F 3.5-5.5 Potassium [Moles/volume] in Serum or Plasma 2024-07-19 06:54:43 4.7 mEq/L F 3.5-5.5 VLDL-CHOL(CALC) 2024-07-18 20:00:30 15 mg/dL F 0.0-29.0 LDL-CHOLESTEROL 2024-07-18 20:00:30 56 mg/dL F 0.0-99.0 GLOBULIN 2024-07-18 20:00:30 4.2 g/dL F 0.9-5.0 A/G RATIO 2024-07-18 20:00:30 1 Calc F 1.0-2.5 CHOL/HDL RATIO 2024-07-18 20:00:30 3.5 Calc F 3.3-5.0 Protein [Mass/volume] in Serum or Plasma 2024-07-18 19:59:18 77 mg/dL F 0.0-149.0 Cholesterol [Mass/volume] in Serum or Plasma 2024-07-18 19:59:18 99 mg/dL F 0.0-199.0 Lactate dehydrogenase [Enzymatic activity/volume] in Serum or Plasma 2024-07-18 19:59:18 156 U/L F 120.0-246.0 Bicarbonate [Moles/volume] in Serum or Plasma 2024-07-18 19:59:18 16 mEq/L F 20.0-31.0 Albumin [Mass/volume] in Serum or Plasma by Bromocresol green (BCG) dye binding method 2024-07-18 19:59:18 4.1 g/dL F 3.4-4.8 Cholesterol in HDL [Mass/volume] in Serum or Plasma 2024-07-18 19:59:18 28 mg/dL F 40.0-60.0 Protein [Mass/volume] in Serum or Plasma 2024-07-18 19:59:18 8.3 g/dL F 5.7-8.2 Glucose [Mass/volume] in Serum or Plasma 2024-07-18 19:59:18 65 mg/dL F 70.0-99.0 Potassium [Moles/volume] in Serum or Plasma 2024-07-05 07:54:20 4.7 mEq/L F 3.5-5.5 Potassium [Moles/volume] in Serum or Plasma 2024-06-21 08:13:48 5.5 mEq/L F 3.5-5.5 A/G RATIO 2024-06-21 00:30:09 1 Calc F 1.0-2.5 GLOBULIN 2024-06-21 00:30:09 4.3 g/dL F 0.9-5.0 Lactate dehydrogenase [Enzymatic activity/volume] in Serum or Plasma 2024-06-21 00:29:17 330 U/L F 120.0-246.0 Bicarbonate [Moles/volume] in Serum or Plasma 2024-06-21 00:29:17 30 mEq/L F 20.0-31.0 Albumin [Mass/volume] in Serum or Plasma by Bromocresol green (BCG) dye binding method 2024-06-21 00:29:17 4.1 g/dL F 3.4-4.8 Protein [Mass/volume] in Serum or Plasma 2024-06-21 00:29:17 8.4 g/dL F 5.7-8.2 Glucose [Mass/volume] in Serum or Plasma 2024-06-21 00:29:17 95 mg/dL F 70.0-99.0 Potassium [Moles/volume] in Serum or Plasma 2024-06-08 07:02:41 5.9 mEq/L F 3.5-5.5 Potassium [Moles/volume] in Serum or Plasma 2024-05-20 18:59:42 4.7 mEq/L F 3.5-5.5 GLOBULIN 2024-05-20 15:51:57 4.6 g/dL F 0.9-5.0 A/G RATIO 2024-05-20 15:51:57 0.8 Calc F 1.0-2.5 Lactate dehydrogenase [Enzymatic activity/volume] in Serum or Plasma 2024-05-20 15:51:14 259 U/L F 120.0-246.0 Bicarbonate [Moles/volume] in Serum or Plasma 2024-05-20 15:51:14 24 mEq/L F 20.0-31.0 Albumin [Mass/volume] in Serum or Plasma by Bromocresol green (BCG) dye binding method 2024-05-20 15:51:14 3.9 g/dL F 3.4-4.8 Protein [Mass/volume] in Serum or Plasma 2024-05-20 15:51:14 8.5 g/dL F 5.7-8.2 Glucose [Mass/volume] in Serum or Plasma 2024-05-20 15:51:14 105 mg/dL F 70.0-99.0 Potassium [Moles/volume] in Serum or Plasma 2024-04-23 02:36:46 4.5 mEq/L F 3.5-5.5 GLOBULIN 2024-04-22 19:17:41 5.2 g/dL F 0.9-5.0 A/G RATIO 2024-04-22 19:17:41 0.7 Calc F 1.0-2.5 Lactate dehydrogenase [Enzymatic activity/volume] in Serum or Plasma 2024-04-22 19:16:17 244 U/L F 120.0-246.0 Bicarbonate [Moles/volume] in Serum or Plasma 2024-04-22 19:16:17 29 mEq/L F 20.0-31.0 Albumin [Mass/volume] in Serum or Plasma by Bromocresol green (BCG) dye binding method 2024-04-22 19:16:17 3.4 g/dL F 3.4-4.8 Protein [Mass/volume] in Serum or Plasma 2024-04-22 19:16:17 8.6 g/dL F 5.7-8.2 Glucose [Mass/volume] in Serum or Plasma 2024-04-22 19:16:17 88 mg/dL F 70.0-99.0 Potassium [Moles/volume] in Serum or Plasma 2024-03-22 06:49:10 4.1 mEq/L F 3.5-5.5 GLOBULIN 2024-03-21 16:16:36 3.8 g/dL F 0.9-5.0 A/G RATIO 2024-03-21 16:16:36 0.9 Calc F 1.0-2.5 Lactate dehydrogenase [Enzymatic activity/volume] in Serum or Plasma 2024-03-21 16:16:25 273 U/L F 120.0-246.0 Bicarbonate [Moles/volume] in Serum or Plasma 2024-03-21 16:16:25 27 mEq/L F 20.0-31.0 Albumin [Mass/volume] in Serum or Plasma by Bromocresol green (BCG) dye binding method 2024-03-21 16:16:25 3.5 g/dL F 3.4-4.8 Protein [Mass/volume] in Serum or Plasma 2024-03-21 16:16:25 7.3 g/dL F 5.7-8.2 Glucose [Mass/volume] in Serum or Plasma 2024-03-21 16:16:25 92 mg/dL F 70.0-99.0 Potassium [Moles/volume] in Serum or Plasma 2024-02-17 05:02:56 5.7 mEq/L F 3.5-5.5 Glucose [Mass/volume] in Serum or Plasma 2024-02-16 20:10:20 89 mg/dL F 70.0-99.0 Potassium [Moles/volume] in Serum or Plasma 2023-12-17 04:30:45 5.5 mEq/L F 3.5-5.5 A/G RATIO 2023-12-16 19:15:07 1.3 Calc F 1.0-2.5 GLOBULIN 2023-12-16 19:15:07 3.1 g/dL F 0.9-5.0 Lactate dehydrogenase [Enzymatic activity/volume] in Serum or Plasma 2023-12-16 19:14:28 269 U/L F 120.0-246.0 Bicarbonate [Moles/volume] in Serum or Plasma 2023-12-16 19:14:28 27 mEq/L F 20.0-31.0 Albumin [Mass/volume] in Serum or Plasma by Bromocresol green (BCG) dye binding method 2023-12-16 19:14:28 4.1 g/dL F 3.4-4.8 Protein [Mass/volume] in Serum or Plasma 2023-12-16 19:14:28 7.2 g/dL F 5.7-8.2 Glucose [Mass/volume] in Serum or Plasma 2023-12-16 19:14:28 95 mg/dL F 70.0-99.0 Potassium [Moles/volume] in Serum or Plasma 2023-11-17 06:46:11 5.3 mEq/L F 3.5-5.5 A/G RATIO 2023-11-17 01:09:27 1.2 Calc F 1.0-2.5 GLOBULIN 2023-11-17 01:09:27 3.3 g/dL F 0.9-5.0 Lactate dehydrogenase [Enzymatic activity/volume] in Serum or Plasma 2023-11-17 01:08:31 270 U/L F 120.0-246.0 Bicarbonate [Moles/volume] in Serum or Plasma 2023-11-17 01:08:31 22 mEq/L F 20.0-31.0 Albumin [Mass/volume] in Serum or Plasma by Bromocresol green (BCG) dye binding method 2023-11-17 01:08:31 4.1 g/dL F 3.4-4.8 Protein [Mass/volume] in Serum or Plasma 2023-11-17 01:08:31 7.4 g/dL F 5.7-8.2 Glucose [Mass/volume] in Serum or Plasma 2023-11-17 01:08:31 100 mg/dL F 70.0-99.0 GLOBULIN 2023-10-24 07:34:04 F Canceled - Specimen not received 5 days past draw date A/G RATIO 2023-10-24 07:34:04 F Canceled - Specimen not received 5 days past draw date Potassium [Moles/volume] in Serum or Plasma 2023-10-24 07:23:14 F Canceled - Specimen not received 5 days past draw date Lactate dehydrogenase [Enzymatic activity/volume] in Serum or Plasma 2023-10-24 07:23:14 F Canceled - Specimen not received 5 days past draw date Protein [Mass/volume] in Serum or Plasma 2023-10-24 07:23:14 F Canceled - Specimen not received 5 days past draw date Bicarbonate [Moles/volume] in Serum or Plasma 2023-10-24 07:23:14 F Canceled - Specimen not received 5 days past draw date Glucose [Mass/volume] in Serum or Plasma 2023-10-24 07:23:14 F Canceled - Specimen not received 5 days past draw date Albumin [Mass/volume] in Serum or Plasma by Bromocresol green (BCG) dye binding method 2023-10-24 07:23:14 F Canceled - Specimen not received 5 days past draw date Potassium [Moles/volume] in Serum or Plasma 2023-09-15 06:49:48 6.6 mEq/L F 3.5-5.5 GLOBULIN 2023-09-14 21:29:34 3.4 g/dL F 0.9-5.0 A/G RATIO 2023-09-14 21:29:34 1.2 Calc F 1.0-2.5 Lactate dehydrogenase [Enzymatic activity/volume] in Serum or Plasma 2023-09-14 21:28:44 263 U/L F 120.0-246.0 Bicarbonate [Moles/volume] in Serum or Plasma 2023-09-14 21:28:44 28 mEq/L F 20.0-31.0 Albumin [Mass/volume] in Serum or Plasma by Bromocresol green (BCG) dye binding method 2023-09-14 21:28:44 4 g/dL F 3.4-4.8 Protein [Mass/volume] in Serum or Plasma 2023-09-14 21:28:44 7.4 g/dL F 5.7-8.2 Glucose [Mass/volume] in Serum or Plasma 2023-09-14 21:28:44 102 mg/dL F 70.0-99.0 Potassium [Moles/volume] in Serum or Plasma 2023-08-17 16:18:00 5.9 mEq/L F 3.5-5.5 GLOBULIN 2023-08-17 13:08:10 3.7 g/dL F 0.9-5.0 A/G RATIO 2023-08-17 13:08:10 1.1 Calc F 1.0-2.5 Lactate dehydrogenase [Enzymatic activity/volume] in Serum or Plasma 2023-08-17 13:07:35 336 U/L F 120.0-246.0 Bicarbonate [Moles/volume] in Serum or Plasma 2023-08-17 13:07:35 25 mEq/L F 20.0-31.0 Albumin [Mass/volume] in Serum or Plasma by Bromocresol green (BCG) dye binding method 2023-08-17 13:07:35 4.2 g/dL F 3.4-4.8 Protein [Mass/volume] in Serum or Plasma 2023-08-17 13:07:35 7.9 g/dL F 5.7-8.2 Glucose [Mass/volume] in Serum or Plasma 2023-08-17 13:07:35 97 mg/dL F 70.0-99.0 Potassium [Moles/volume] in Serum or Plasma 2023-07-21 06:15:19 6.1 mEq/L F 3.5-5.5 VLDL-CHOL(CALC) 2023-07-21 01:34:16 18 mg/dL F 0.0-29.0 LDL-CHOLESTEROL 2023-07-21 01:34:16 92 mg/dL F 0.0-99.0 GLOBULIN 2023-07-21 01:34:16 3.7 g/dL F 0.9-5.0 A/G RATIO 2023-07-21 01:34:16 1.2 Calc F 1.0-2.5 CHOL/HDL RATIO 2023-07-21 01:34:16 3 Calc F 3.3-5.0 Protein [Mass/volume] in Serum or Plasma 2023-07-21 01:34:04 90 mg/dL F 0.0-149.0 Cholesterol [Mass/volume] in Serum or Plasma 2023-07-21 01:34:04 165 mg/dL F 0.0-199.0 Lactate dehydrogenase [Enzymatic activity/volume] in Serum or Plasma 2023-07-21 01:34:04 289 U/L F 120.0-246.0 Bicarbonate [Moles/volume] in Serum or Plasma 2023-07-21 01:34:04 25 mEq/L F 20.0-31.0 Albumin [Mass/volume] in Serum or Plasma by Bromocresol green (BCG) dye binding method 2023-07-21 01:34:04 4.4 g/dL F 3.4-4.8 Cholesterol in HDL [Mass/volume] in Serum or Plasma 2023-07-21 01:34:04 55 mg/dL F 40.0-60.0 Protein [Mass/volume] in Serum or Plasma 2023-07-21 01:34:04 8.1 g/dL F 5.7-8.2 Glucose [Mass/volume] in Serum or Plasma 2023-07-21 01:34:04 106 mg/dL F 70.0-99.0 Potassium [Moles/volume] in Serum or Plasma 2023-06-16 05:12:32 5.3 mEq/L F 3.5-5.5 GLOBULIN 2023-06-15 17:56:29 3.8 g/dL F 0.9-5.0 A/G RATIO 2023-06-15 17:56:29 1.1 Calc F 1.0-2.5 Lactate dehydrogenase [Enzymatic activity/volume] in Serum or Plasma 2023-06-15 17:55:58 284 U/L F 120.0-246.0 Bicarbonate [Moles/volume] in Serum or Plasma 2023-06-15 17:55:58 25 mEq/L F 20.0-31.0 Albumin [Mass/volume] in Serum or Plasma by Bromocresol green (BCG) dye binding method 2023-06-15 17:55:58 4.3 g/dL F 3.4-4.8 Protein [Mass/volume] in Serum or Plasma 2023-06-15 17:55:58 8.1 g/dL F 5.7-8.2 Glucose [Mass/volume] in Serum or Plasma 2023-06-15 17:55:58 125 mg/dL F 70.0-99.0 Potassium [Moles/volume] in Serum or Plasma 2023-05-21 07:19:18 4 mEq/L F 3.5-5.5 A/G RATIO 2023-05-20 21:32:25 1 Calc F 1.0-2.5 GLOBULIN 2023-05-20 21:32:25 3.6 g/dL F 0.9-5.0 Lactate dehydrogenase [Enzymatic activity/volume] in Serum or Plasma 2023-05-20 21:32:15 291 U/L F 120.0-246.0 Bicarbonate [Moles/volume] in Serum or Plasma 2023-05-20 21:32:15 27 mEq/L F 20.0-31.0 Albumin [Mass/volume] in Serum or Plasma by Bromocresol green (BCG) dye binding method 2023-05-20 21:32:15 3.7 g/dL F 3.4-4.8 Protein [Mass/volume] in Serum or Plasma 2023-05-20 21:32:15 7.3 g/dL F 5.7-8.2 Glucose [Mass/volume] in Serum or Plasma 2023-05-20 21:32:15 98 mg/dL F 70.0-99.0 GLOBULIN 2023-04-20 22:47:45 3.9 g/dL F 0.9-5.0 A/G RATIO 2023-04-20 22:47:45 1 Calc F 1.0-2.5 Lactate dehydrogenase [Enzymatic activity/volume] in Serum or Plasma 2023-04-20 22:47:42 327 U/L F 120.0-246.0 Bicarbonate [Moles/volume] in Serum or Plasma 2023-04-20 22:47:42 27 mEq/L F 20.0-31.0 Potassium [Moles/volume] in Serum or Plasma 2023-04-20 22:47:42 4.7 mEq/L F 3.5-5.5 Albumin [Mass/volume] in Serum or Plasma by Bromocresol green (BCG) dye binding method 2023-04-20 22:47:42 3.8 g/dL F 3.4-4.8 Protein [Mass/volume] in Serum or Plasma 2023-04-20 22:47:42 7.7 g/dL F 5.7-8.2 Glucose [Mass/volume] in Serum or Plasma 2023-04-20 22:47:42 112 mg/dL F 70.0-99.0 VLDL-CHOL(CALC) 2023-03-20 21:23:03 22 mg/dL F 0.0-29.0 LDL-CHOLESTEROL 2023-03-20 21:23:03 83 mg/dL F 0.0-99.0 GLOBULIN 2023-03-20 21:23:03 3.2 g/dL F 0.9-5.0 A/G RATIO 2023-03-20 21:23:03 1 Calc F 1.0-2.5 CHOL/HDL RATIO 2023-03-20 21:23:03 3.3 Calc F 3.3-5.0 Protein [Mass/volume] in Serum or Plasma 2023-03-20 21:22:31 108 mg/dL F 0.0-149.0 Cholesterol [Mass/volume] in Serum or Plasma 2023-03-20 21:22:31 150 mg/dL F 0.0-199.0 Lactate dehydrogenase [Enzymatic activity/volume] in Serum or Plasma 2023-03-20 21:22:31 301 U/L F 120.0-246.0 Bicarbonate [Moles/volume] in Serum or Plasma 2023-03-20 21:22:31 24 mEq/L F 20.0-31.0 Albumin [Mass/volume] in Serum or Plasma by Bromocresol green (BCG) dye binding method 2023-03-20 21:22:31 3.1 g/dL F 3.4-4.8 Potassium [Moles/volume] in Serum or Plasma 2023-03-20 21:22:31 3.8 mEq/L F 3.5-5.5 Cholesterol in HDL [Mass/volume] in Serum or Plasma 2023-03-20 21:22:31 45 mg/dL F 40.0-60.0 Protein [Mass/volume] in Serum or Plasma 2023-03-20 21:22:31 6.3 g/dL F 5.7-8.2 Glucose [Mass/volume] in Serum or Plasma 2023-03-20 21:22:31 108 mg/dL F 70.0-99.0 Cholesterol in HDL [Mass/volume] in Serum or Plasma Protein [Mass/volume] in Serum or Plasma VLDL-CHOL(CALC) LDL-CHOLESTEROL CHOL/HDL RATIO Cholesterol [Mass/volume] in Serum or Plasma Encounters No encounter information to report Immunizations Ordered Immunization Name Filled Immunization Name Date Status Comments Refusal Reason TST-PPD intradermal 2024-06-30 21:01:20 Influenza, high-dose, quadrivalent, PF 2024-02-23 20:23:00 TST-PPD intradermal 2023-03-24 16:55:50 Influenza Vaccination 2023-02-23 05:00:00 Pneumococcal Vaccination 2023-02-23 05:00:00 Covid-19 Vaccination 2021-07-07 06:00:00 Covid-19 Vaccination 2021-06-06 06:00:00 Plan of Treatment Planned Activity Provider Planned Date Details Commen ts Diagnostic Test Pending Gerson Keith 2023-06-06 06:00:00 Hemoglobin [Mass/volume] in Blood [code = 718-7] Diagnostic Test Pending Gerson Keith 2023-11-22 05:00:00 Alanine aminotransferase [Enzymatic activity/volume] in Serum or Plasma [code = 1742-6] Diagnostic Test Pending Gerson Keith 2023-03-24 06:14:05 Ferritin [Mass/volume] in Serum or Plasma [code = 2276-4] Diagnostic Test Pending Gerson Keith 2023-03-16 06:19:18 Parathyrin.intact [Mass/volume] in Serum or Plasma [code = 2731-8] Diagnostic Test Pending Gerson Keith 2023-03-15 15:50:06 Potassium [Moles/volume] in Serum or Plasma [code = 2823-3] Diagnostic Test Pending Gerson Keith 2023-03-15 15:50:54 25-Hydroxyvitamin D3+25-Hydroxyvitamin D2 [Mass/volume] in Serum or Plasma [code = 87729-1] Diagnostic Test Pending Gerson Keith 2023-03-15 15:50:20 Reticulocytes/100 erythrocytes in Blood by Automated count [code = 76011-3] Diagnostic Test Pending Gerson Keith 2023-03-15 15:46:59 Glucose [Mass/volume] in Serum or Plasma [code = 2345-7] Diagnostic Test Pending Gerson Keith 2023-03-15 15:46:33 Creatinine [Mass/volume] in Serum or Plasma [code = 2160-0] Diagnostic Test Pending Gerson Keith 2023-03-15 15:50:46 Sodium [Moles/volume] in Serum or Plasma [code = 2951-2] Diagnostic Test Pending Gerson Keith 2023-03-15 15:49:11 Hemoglobin A1c/Hemoglobin.total in Blood [code = 4548-4] Diagnostic Test Pending Gerson Keith 2023-03-15 15:46:01 Aluminum [Mass/volume] in Serum or Plasma [code = 5574-9] Diagnostic Test Pending [facility] 2024-06-06 06:00:00 In-Center Hemodialysis Treatment [code = VKT811] Diet Order [facility] March 18, 2023 Diet Calorie 25 kcal/kg Fluid Value 1000 mL/d Phosphorus Value 800 mg/d Potassium Value 2000 mg/d Protein Value 1.2 gm/kg Sodium Value 2000 mg/d Calculated Weight 89 kg
--- OUTSIDE RECORDS SUMMARY | 2024-08-19 21:16 | XMS_ITS | Encounter Summary ---
Author Organization [facility] Healthcare Address [address] [place] [address] Care Team Providers Care Line Staker Name Role Phone Matteo Brooks MD Unavailable + [phone] Gerson Keith MD Unavailable Cassie Márquez MD Unavailable Beatriz TO MD, Seth Vasquez Unavailable Beatriz TO MD, Lyman Lansing Unavailable [phone] David Gorman MD Unavailable [phone] Blayne Sepulveda MD Unavailable Gerson Forrester DO Unavailable [phone] Idris Sanchez MD Primary Care Provi simba Reason for Referral * MRI/CAT/PET Scan (Routine) - Closed Specialty Diagnoses / Procedures Referred By Maxine garcia Referred To Contact Radiology Diagnoses Squamous cell carcinoma of anal margin Procedures CT Chest Abdomen Pelvis W Contrast Matteo Brooks MD [address] [facility] [address] [place] [address] Phone: tel: fax: [address] [phone] Referral ID Status Reason Start Date Expiration Date Visits Re quested Visits Authorized [id number] Closed 05/02/2024 06/01/2025 1 1 Reason for Visit * MRI/CAT/PET Scan (Routine) - Closed Specialty Diagnoses / Procedures Referred By Maxine t Referred To Contact Radiology Diagnoses Squamous cell carcinoma of anal margin Procedures CT Chest Abdomen Pelvis W Contrast Matteo Brooks MD [address] [facility] [address] [place] [address] Phone: tel: fax: [address] [phone] Referral ID Status Reason Start Date Expiration Date Visits Re quested Visits Authorized [id number] Closed 05/02/2024 06/01/2025 1 1 Encounter Details Date Type Department Care Team (Latest Contact Info) Description 08/17/2024 1:47 PM CDT - 08/17/2024 11:59 PM CDT Hospital Encounter [address] [address] Squamous cell carcinoma of anal margin Discharge Disposition: Discharge to home or self care Social History Tobacco Use Types Packs/Day Years Used Date Smoking Tobacco: Some Days Cigarettes 0.3 10 Passive Smoke Exposure: Never Smokeless Tobacco: Never Comments:Last cigarette 04/24 0 Alcohol Use Standard Drinks/Week Comments Not Currently 0 (1 standard drink = 0.6 oz pur e alcohol) [facility] Utilities Answer Date Recorded In the past 12 months has [employer], [employer], oil, or water [employer] threatened to shut off services in your [...] 04/11/2024 How often do you attend chur or amish services? Never 04/11/2024 Do you belong to any clubs o r organizations such as congregational groups, unions, fraternal or athletic groups, or [...] place to sleep or slept in a chcf (including now)? No 08/30/2023 PHQ-9 Answer Date [...] any time in the past 12 m [facility], were you homeless or living in a chcf (including now)? No 04/11/2024 Personal Safety Answer Date Recorded Have you ever been in or are you currently in a harmful physical or emotional relationship or is someone making you feel afraid or unsafe? 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 Gender Identity Not on file Sexual Orientation Not on file documented as of this encounter Medications at Time of Discharge albuterol 2.5 mg /3 mL (0.083 %) nebulizer solution INHALE THE CONTENTS OF 1 VIAL VIA NEBULIZER EVERY 6 HOURS NEEDED FOR WHEEZING OR FOR SHORTNESS OF BREATH 04/14/2024 albuterol HFA (PROVENTIL HFA,VENTOLIN HFA,PROAIR HFA) 90 mcg/actuation inhaler INHALE 2 PUFFS BY MOUTH EVERY 6 HOURS NEEDED FOR WHEEZING 6.7 g 1 04/23/2022 amLODIPine (NORVASC) 10 mg tablet Take 1 tablet (10 mg total) by mouth daily 30 tablet 1 02/02/2024 baclofen (LIORESAL) 10 mg tabletIndications:Mu scle spasms of neck Take 1 tablet (10 mg total) by mouth 3 (three) times a day as needed for muscle spasms 90 tablet 08/15/2024 5 calcium acetate,phosphat bind, (PHOSLO) 667 mg capsule TAKE 1 CAPSULE BY MOUTH 3 TIMES A DAY WITH MEALS 04/08/2023 carvediloL (COREG) 12.5 mg tablet Take 1 tablet (12.5 mg total) by mouth 2 (two) times a day with meals 180 tablet 02/02/2024 cholecalciferol (VITAMIN D-3) 5,000 unit capsule Take 1 capsule (5,000 Units total) by mouth daily 90 capsule 3 09/06/2023 5 cloNIDine (CATAPRES) 0.2 mg tablet Take 1 tablet (0.2 mg total) by mouth 3 (three) times a day 08/07/2024 doxazosin (CARDURA) 8 mg tablet Take 1 tablet (8 mg total) by mouth daily 08/11/2024 entecavir (BARACLUDE) 0.5 mg tabletIndications:Ch ronic viral hepatitis B without delta agent 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 (HCC) TAKE 1 TABLET BY MOUTH EVERY 7 DAYS 12 tablet 07/18/2024 folic acid (FOLVITE) 1 mg tablet Take 1 tablet (1 mg total) by mouth daily 90 tablet 3 09/06/2023 fostemsavir (Rukobia) 600 mg tablet extended release 12 hr tablet extended release TAKE ONE TABLET BY MOUTH TWICE A DAY 60 tablet 3 07/18/2024 losartan (COZAAR) 100 mg tablet TAKE 1 TABLET BY MOUTH DAILY 100 tablet 2 04/03/2024 minoxidiL (LONITEN) 2.5 mg tablet TAKE 2 TABLETS BY MOUTH TWICE DAILY 360 tablet 3 02/07/2024 ondansetron ODT (ZOFRAN-ODT) 4 mg disintegrating tablet DISSOLVE ONE TABLET BY MOUTH EVERY 8 HOURS NEEDED NAUSEA OR VOMITING 20 tablet 1 07/18/2024 Prezcobix 800-150 mg-mg tabletIndications:Cu rrently asymptomatic HIV infection, with history of HIV-related illness (HCC) TAKE ONE TABLET BY MOUTH EVERY DAY 90 tablet 08/14/2024 Saline NasaL 0.65 % nasal spray SPRAY 1 SPRAY INTO INTO EACH NOSTRIL NEEDED FOR DRY NOSE 04/26/2024 senna-docusate (PERICOLACE) 8.6-50 mg Take 2 tablets by mouth 2 (two) times a day 200 tablet 3 07/26/2024 sertraline (ZOLOFT) 50 mg tablet Take 1 tablet (50 mg total) by mouth daily sulfamethoxazole-tri methoprim (BACTRIM) 400-80 mg per tablet TAKE 1 TABLET BY MOUTH EVERY WEDNESDAY, WEDNESDAY AND WEDNESDAY 90 tablet 3 11/15/2023 Symbicort 160-4.5 mcg/actuation inhaler Inhale 2 puffs 2 (two) times a day 08/08/2024 Tivicay 50 mg tablet TAKE ONE TABLET BY MOUTH TWICE A DAY 60 tablet 3 07/18/2024 traZODone (DESYREL) 50 mg tablet Take 0.5 tablets (25 mg total) by mouth nightly as needed 10/08/2023 triamcinolone (KENALOG) 0.1 % ointment Apply topically 2 (two) times a day documented as of this encounter Discharge Disposition Disposition Code Departure Means Destination Discharge to home or self care documented in this encounter Plan of Treatment Upcoming Encounters Date Type Department Care Team (Latest Contact Info) Description 10/05/2024 7:30 AM CDT Hospital Encounter [facility] [place] [address] [place] [address] Seth Henderson IV, MD [address] [place] [address] 10/05/2024 7:30 AM CDT - 10/05/2024 9:00 AM CDT Surgery [facility] [place] [address] [place] [address] Seth Henderson IV, MD [address] [place] [address] RECTAL EXAM UNDER ANESTHESIA WITH EXCISION ANAL MASS Pending Results Name Type Priority Associated Diagnoses Date /Time CT Chest Abdomen Pelvis W Contrast Imaging Schedule Routine, Read Routine (OP Routine) Squamous cell carcinoma of anal margin 08/17/2024 3:10 PM CDT Scheduled Orders Name Type Priority Associated Diagnoses Orde r Schedule CT Chest Abdomen Pelvis W Contrast Imaging Schedule Routine, Read Routine (OP Routine) Squamous cell carcinoma of anal margin Once for 1 Occurrences starting 08/17/2024 until 08/17/2024 Scheduled Procedures Name Priority Associated Diagnoses Date/Ti me HEMORRHOIDECTOMY ANAL CANCER 10/05/2024 7:30 AM CDT COLONOSCOPY ANAL CANCER 10/05/2024 7:30 AM CDT documented as of this encounter Visit Diagnoses Diagnosis Squamous cell carcinoma of anal margin documented in this encounter Administered Medications Inactive Administered Medications - up to 3 most recent administrations Medication Order MAR Action Action Date Dose Rate Site ioversoL (OPTIRAY 350) syringe 100 mL 100 mL, intravenous, Once in imaging, contrast, Starting on Donna 08/17/24 at 1504, For 1 dose Contrast Given 08/17/2024 3:07 PM CDT 100 mL documented in this encounter Orders Medications Ordered That Rory ht Not Have Been Administered Count Last Ordered Date First Ordered Date ioversoL (OPTIRAY 350) syringe 100 mL 1 documented in this encounter Care Teams Line Staker Relationship Specialty Start Date End Date Idris Sanchez MD [address] [address] PCP - General Family Practice 05/18/24 Matteo Brooks MD [address] [facility], [address] [address] Medical Oncologist/Chef De Partie Medical Oncology 03/31/23 Gerson Keith MD [address] [facility], [address] [address] Consulting Physician Nephrology 05/07/23 Cassie Márquez MD [address] [facility] [place] [address] Consulting Physician Family Medicine 06/25/23 Seth Henderson IV, MD [address] [place] [address] Consulting Physician General Surgery 10/21/23 Seth Henderson IV, MD [address] [place] [address] Consulting Physician General Surgery 10/21/23 David Gorman MD [address] [place] [address] Radiation Oncologist Radiation Oncology 10/21/23 Blayne Sepulveda MD [address] [phone] Consulting Physician General Surgery 03/10/24 Gerson Forrester DO [address] [phone] Consulting Physician General Surgery 03/14/24 documented as of this encounter
--- OUTSIDE RECORDS SUMMARY | 2024-08-19 21:16 | XMS_ITS | Encounter Summary ---
Author Organization [facility] Address [address] [facility] [place] [address] Care Team Providers Care Pest Control Service Technician Name Role Phone Josh Parham MD Primary Care Provider [phone] Josh Parham MD Unavailable [phone] Care, [facility] Unavailable Charu Carter CONTROL TOWER OPERATOR-AIRPORT SECURITY SCREENER Unavailable Josh Parham MD Unavailable [phone] Reason for Visit * Reason Onset Date Comments MEDICATION REFILL 02/28/2024 Encounter Details Date Type Department Care Team (Late st Contact Info) Description 02/28/2024 Refill [facility] Medical [facility] - [facility] [address] [place] [address] Josh Parham MD [address] [place] [phone] MEDICATION REFILL Social History Tobacco Use Types Packs/Day Years Used Date Smoking Tobacco: Former Cigarettes 1 31 0 08/22/1985 - 08/22/2016 Smokeless Tobacco: Never Alcohol Use Standard Drinks/Week Comments No 0 (1 standard drink = 0.6 oz pur e alcohol) PHQ-2 Answer Date Recorded Patient Health Questionnaire-2 Score 3 10/07/2023 Sex and Gender Information Value Date Recorded Sex Assigned at Male 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 Gender Identity Male 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 Sexual Orientation Not on file documented as of this encounter Plan of Treatment Upcoming Encounters Date Type Department Care Team (Late st Contact Info) Description 10/03/2024 1:30 PM CDT Office Visit [facility] - Internal Medicine [address] [facility] [address] [place] [address] Josh Parham MD [address] [place] [phone] documented as of this encounter Visit Diagnoses Not on filedocumented in this encounter Care Teams Pest Control Service Technician Relationship Specialty Start Date End Date Josh Parham MD PCP - General Internal Medicine 05/27/11 Josh Parham MD [address] [place] [phone] PCP - Attributed-[facility] MA 10/22/22 Charu Carter APRN-AIRPORT SECURITY SCREENER [address] [place] [phone] PCP - [facility] 11/22/23 03/23/24 Josh Parham MD [address] [place] [phone] PCP - [facility] 03/24/24 Care, [facility] Care Management 12/23/22 documented as of this encounter
--- OUTSIDE RECORDS SUMMARY | 2024-08-19 21:16 | XMS_ITS | Encounter Summary ---
Author Organization [facility] Healthcare Address [address] [place] [address] Care Team Providers Care Technician Support Engineer Name Role Phone Matteo Brooks MD Unavailable Gerson Keith MD Unavailable [phone] Cassie Márquez MD Unavailable Beatriz TO MD, Seth Vasquez Unavailable Beatriz TO MD, Seth Vasquez Unavailable David Gorman MD Unavailable [phone] Blayne Sepulveda MD Unavailable Gerson Forrester DO Unavailable [phone] Idris Sanchez MD Primary Care Provi simba Reason for Visit * Reason Onset Date Comments Clearances Prior to AVF vs AVG Creation 08/03/19 Encounter Details Date Type Department Care Team (Late st Contact Info) Description 08/02/2024 Telephone [facility] [address] [facility] [address] [place] [address] Jaskaran Aguirre MD [address] [place] [address] [address] [place] [address] Clearances Prior to AVF vs AVG Creation Social History Tobacco Use Types Packs/Day Years Used Date Smoking Tobacco: Some Days Cigarettes 0.3 10 Passive Smoke Exposure: Never Smokeless Tobacco: Never Comments:Last cigarette 04/24 0 Alcohol Use Standard Drinks/Week Comments Not Currently 0 (1 standard drink = 0.6 oz pur e alcohol) [facility] Utilities Answer Date Recorded In the past [...] often do you attend chur ch or holiness services? Never 04/11/2024 Do you belong to any clubs o r organizations such as orthodoxy groups, unions, fraternal or athletic groups, or [...] place to sleep or slept in a longterm (including now)? No 08/30/2023 PHQ-9 Answer Date [...] any time in the past 12 m [facility], were you homeless or living in a longterm (including now)? No 04/11/2024 Personal Safety Answer Date Recorded Have you ever been in or are you currently in a harmful physical or emotional relationship or is someone making you feel afraid or unsafe? 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 Patient was hospitalized and underwent appendectomy on 03/09/24, hospitalized again in March 2024, cancelled and r escheduled multiple appointments with infectious disease. Patient finally seen by infectious disease on 06/27/24 and was noted to no longer be on antibiotics and no further growth of MRSA was noted. Patient had not established with tuckpointer cleaner caulker. Referral was sent to [facility] Cardiology in [place] on 07/03/24 per patient care representative, Radha's, request. On 07/06/24 I contacted cardiology office to verify receipt of referral and clearance request, Per Lakshmi they did have referral and request and had attempted to contact the patient on 07/05/24 without success. I contacted cardiology office today to check status of clearance, they have not seen patient yet. They made attempts on 07/11/24, 07/19/24 and 07/26/24 to schedule appointment without success. I contacted patient's patient care representative, Radha, to verify reason for not scheduling cardiology appointment. She was unaware they were trying to call, states she does not answer numbers she doesn't know and if message are left she doesn't call back. I provided cardiology office phone number and she will contact office to schedule appointment. I received call back from Radha, appointment scheduled with Dr. Hull on 10/19/24. She cancelled patient's follow-up with us on 09/19/24 and will reschedule once clearance has been obtained fromthe tuckpointer cleaner caulker. documented in this encounter Plan of Treatment Upcoming Encounters Date Type Department Care Team (Latest Contact Info) Description 10/05/2024 7:30 AM CDT Hospital Encounter [facility] OR [address] [place] [address] Seth Henderson IV, MD [address] [place] [address] 10/05/2024 7:30 AM CDT - 10/05/2024 9:00 AM CDT Surgery [facility] [place] [address] [place] [address] Seth Henderson IV, MD [facility] [address] [phone] RECTAL EXAM UNDER ANESTHESIA WITH EXCISION ANAL MASS Scheduled Procedures Name Priority Associated Diagnoses Date/Ti me HEMORRHOIDECTOMY ANAL CANCER 10/05/2024 7:30 AM CDT COLONOSCOPY ANAL CANCER 10/05/2024 7:30 AM CDT documented as of this encounter Visit Diagnoses Not on filedocumented in this encounter Additional Health Concerns Infection Onset Date Last Indicated Resolved Time RSV, droplet 07/28/2024 07/28/2024 08/04/2024 3:0 5 AM CDT documented as of this encounter Care Teams Technician Support Engineer Relationship Specialty Start Date End Date Idris Sanchez MD [address] [address] PCP - General Family Practice 05/18/24 Matteo Brooks MD [address] [facility], [address] [address] Medical Oncologist/Defect Cutter Medical Oncology 03/31/23 Gerson Keith MD [address] [facility], [address] [address] Consulting Physician Nephrology 05/07/23 Cassie Márquez MD [address] [place] [address] Consulting Physician Family Medicine 06/25/23 Seth Henderson IV, MD [address] [place] [address] Consulting Physician General Surgery 10/21/23 Seth Henderson IV, MD [address] [place] [address] Consulting Physician General Surgery 10/21/23 David Gorman MD [address] [place] [address] Radiation Oncologist Radiation Oncology 10/21/23 Blayne Sepulveda MD [address] [place] [address] Consulting Physician General Surgery 03/10/24 Gerson Forrester DO [address] [place] [phone] Consulting Physician General Surgery 03/14/24 documented as of this encounter
--- OUTSIDE RECORDS SUMMARY | 2024-08-19 21:16 | XMS_ITS | Encounter Summary ---
Author Organization [facility] Healthcare Address [address] [place] [address] Care Team Providers Care Roadside Mechanic Name Role Phone Matteo Brooks MD Unavailable [phone] Gerson Keith MD Unavailable [phone] Cassie Márquez MD Unavailable Beatriz TO MD, Seth Vasquez Unavailable Beatriz TO MD, Lyman Lansing Unavailable David Gorman MD Unavailable [phone] Blayne Sepulveda MD Unavailable Gerson Forrester DO Unavailable [phone] Idris Sanchez MD Primary Care Provi simba Encounter Details Date Type Department Care Team (Late st Contact Info) Description 07/29/2024 Results Follow-Up [facility] Medical Group [facility] [place] [id number] [place] [address] Merrick Aguirre NP [address] [place] [address] [address] [place] [address] Social History Tobacco Use Types Packs/Day Years Used Date Smoking Tobacco: Some Days Cigarettes 0.3 10 Passive Smoke Exposure: Never Smokeless Tobacco: Never Comments:Last cigarette 12/2 0 Alcohol Use Standard Drinks/Week Comments Not Currently 0 (1 standard drink = 0.6 oz pur e alcohol) [facility] Utilities Answer Date Recorded In the [...] often do you attend chur ch or orthodox services? Never 04/11/2024 Do you belong to [...] place to sleep or slept in a usp (including now)? No 08/30/2023 PHQ-9 Answer Date [...] any time in the past 12 m [facility], were you homeless or living in a usp (including now)? No 04/11/2024 Personal Safety Answer Date Recorded Have you ever been in or are you currently in a harmful physical or emotional relationship or is someone making you feel afraid or unsafe? 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 Discussed xray hours and availability and other locations for pt to get xray. OLATE PRODUCTION 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 documented in this encounter Plan of Treatment Upcoming Encounters Date Type Department Care Team (Latest Contact Info) Description 10/05/2024 7:30 AM CDT Hospital Encounter [facility] [place] [address] [place] [address] Seth Henderson IV, MD [address] [place] [address] [phone] 10/05/2024 7:30 AM CDT - 10/05/2024 9:00 AM CDT Surgery [facility] [place] [address] [place] [address] Seth Henderson IV, MD [address] [place] [address] [id number] RECTAL EXAM UNDER ANESTHESIA WITH EXCISION ANAL MASS Scheduled Procedures Name Priority Associated Diagnoses Date/Ti me HEMORRHOIDECTOMY ANAL CANCER 10/05/2024 7:30 AM CDT COLONOSCOPY ANAL CANCER 10/05/2024 7:30 AM CDT documented as of this encounter Visit Diagnoses Not on filedocumented in this encounter Additional Health Concerns Infection Onset Date Last Indicated Resolved Time COVID: Suspected 07/28/2024 07/28/2024 07/29/2024 12:32 AM CHOCOLATE PRODUCTION 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 RSV, droplet 07/28/2024 07/28/2024 08/04/2024 3:05 AM CDT documented as of this encounter Care Teams Roadside Mechanic Relationship Specialty Start Date End Date Idris Sanchez MD [address] [address] PCP - General Family Practice 05/18/24 Matteo Brooks MD [address] [facility], [address] [address] Medical Oncologist/Car Construction Superintendent Medical Oncology 03/31/23 Gerson Keith MD [address] [facility], [address] [address] Consulting Physician Nephrology 05/07/23 Cassie Márquez MD [address] [place] [address] Consulting Physician Family Medicine 06/25/23 Seth Henderson IV, MD [address] [place] [address] Consulting Physician General Surgery 10/21/23 Seth Henderson IV, MD [address] [place] [address] Consulting Physician General Surgery 10/21/23 David Gorman MD [address] [place] [address] Radiation Oncologist Radiation Oncology 10/21/23 Blayne Sepulveda MD [address] [place] [address] [phone] Consulting Physician General Surgery 03/10/24 Gerson Forrester DO [address] [place] [address] [phone] Consulting Physician General Surgery 03/14/24 documented as of this encounter
--- OUTSIDE RECORDS SUMMARY | 2024-08-19 21:16 | XMS_ITS | Encounter Summary ---
Author Organization [facility] Address [address] [facility] [place] [address] Care Team Providers Care Web Designer Name Role Phone Josh Parham MD Primary Care Provider Josh Parham MD Unavailable [phone] Care, [facility] Unavailable Charu Carter RETAIL PROPERTY MANAGER-COMPENSATION AGENT Unavailable Josh Parham MD Unavailable [phone] Reason for Visit * Reason Onset Date Comments MEDICATION REFILL 02/07/2024 Encounter Details Date Type Department Care Team (Late st Contact Info) Description 02/07/2024 Refill [facility] Medical [facility] - Internal Medicine [address] [place] [phone] Ashwini Walter MD [address] [place] [phone] MEDICATION REFILL Social History Tobacco Use [...] Sex Assigned at Male 07/03/2021 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 Josh Parham MD * Telephone Encounter - Urszula Lopez MA - 02/09/2024 10:01 AM CDT Images from the original note were not included. Last appt: 10/07/2023 Next appt: 04/13/2024 Follow up recommendations: Return in about 6 months (around 04/08/2024). Last refill: 02/03/2024 Number of cancel or no shows in the last 12 months: 2 Allergies have been reviewed. Correct pharmacy is populated. Please sign RX and close encounter. documented in this encounter Plan of Treatment Upcoming Encounters Date Type Department Care Team (Late st Contact Info) Description 10/03/2024 1:30 PM CDT Office Visit [facility] - Internal Medicine [address] [place] [phone] Josh Parham MD [address] [place] [phone] documented as of this encounter Visit Diagnoses Not on filedocumented in this encounter Care Teams Web Designer Relationship Specialty Start Date End Date Josh Parham MD PCP - General Internal Medicine 05/27/11 Josh Parham MD [address] [place] [phone] PCP - Attributed-C MA 10/22/22 Charu Carter, RETAIL PROPERTY MANAGER-COMPENSATION AGENT [facility] [place] [phone] PCP - Strive [facility] 11/22/23 03/23/24 Josh Parham MD [facility] [address] PCP - Strive O 03/24/24 Care, [facility] Care Management 12/23/22 documented as of this encounter
--- OUTSIDE RECORDS SUMMARY | 2024-08-19 21:16 | XMS_ITS | Clinical Summary ---
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 [facility] Blood 06/27/2024 3:37 PM HARNESS PLACER 06/27/2024 6:40 PM HARNESS PLACER Bhavesh Mariano MD LAB BLOOD ORDERAB LES Final Result [facility] [address] Department [place] [address] * (ABNORMAL) Comprehensive metabolic panel (06/27/2024 3:37 PM HARNESS PLACER) Sodium 135 135 - 145 mmol/L Potassium, pl 4.7 3.3 - 4.9 mmol/L [facility] Chloride 94(L) 97 - 110 mmol/L [facility] CO2 24 22 - 32 mmol/L [facility] Anion gap 17(H) 2 - 15 mmol/L [facility] CH BUN 31(H) 6 - 25 mg/dL [facility] Creatinine 8.04(H) 0.80 - 1.30 mg/dL [facility] Glucose 102 70 - 199 mg/dL [facility] Comment: Interpretive Data Fasting glucose >/= 126 [...] classification and Diagnosis of Diabetes Diabetes Care 2021; 46: S19-S40. Current interpretive data was last revised 2022. Calcium 8.7 8.5 - 10.3 mg/dL [facility] Bilirubin, total 0.3 0.1 - 1.2 mg/dL [facility] Protein, pl 8.8(H) 6.5 - 8.5 g/dL [facility] Albumin 4.3 3.5 - 5.0 g/dL [facility] Alk phos 60 40 - 130 Units/L [facility] ALT 32 7 - 55 Units/L [facility] AST 33 10 - 50 Units/L [facility] Blood 06/27/2024 3:37 PM HARNESS PLACER 06/27/2024 6:42 PM HARNESS PLACER Bhavesh Mariano MD LAB BLOOD ORDERAB LES Final Result [facility] [address] Department [place] [address] * CT Abdomen Pelvis W Contrast (04/15/2024 6:22 PM HARNESS PLACER) Anatomical Region Laterality Modality Body N/A Computed Tomogra phy 04/15/2024 8:50 PM HARNESS PLACER Narrative 04/15/2024 9:50 PM HARNESS PLACER EXAM DESCRIPTION: CT ABDOMEN PELVIS W CONTRAST [...] Driss Meza M.D. AR: PATRICK Report ID: [id number] Reading Location: [id number] Procedure Note Driss Meza MD - 04/15/2024 [...] Driss Meza M.D. AR: PATRICK Report ID: [id number] Reading Location: [place] [address] Isidro Daigle MD IM CT PROCEDURES Final Resu lt * TB test, quantiferon gold (01/21/2024 10:15 AM CDT) [facility] Quantiferon TB Gold Negative Negative [facility] Comment: No interferon-gamma response to M. tuberculosis antigens was detected. Latent infection with M. tuberculosis is unlikely. A single negative result does not exclude infection with M. tuberculosis. In patients at high risk for M.tuberculosis infection, a second test should be considered in accordance with the 2017 ATS/IDSA/CDC Clinical Practice Guidelines for Diagnosis of Tuberculosis in Adults and Children [Karlyn DM et. al. Clin. Infect. Dis. 2017;64(2):111-115]. The reference range for the 'TB1 Ag minus Nil Result' and 'TB2 Ag minus Nil Result' is an Interferon-gamma level <0.35 IU/mL. TB-Nil 0.00 IUnits/mL [facility] TB2-Nil 0.01 IUnits/mL [facility] Mitogen-Nil >10.00 IUnits/mL [facility] MH NIL 0.02 IUnits/mL [facility] Comment: Test Performed by: [facility] [address] [place] [address] Passenger Elevator Operator: Henry Radford Ph.D.; CLIA# [id number] Blood 01/21/2024 10:1 5 AM CDT 01/21/2024 10:35 AM CDT Negrito Amaya MD LAB BLOOD ORDERABLES Trina l Result Performing Organization Address City/[facility]/ZIP Co de Phone Number [facility] [address] [place] [address] Department [place] [address] [facility] * (ABNORMAL) Hepatitis C antibody Blood (11/02/2023 8:16 PM CDT) Pathologist [facility] Hep C Ab Reactive( A) Nonreactive Comment: Critical result called to and read back by Janis Bustillos (RN) on 11/03/2023 08:22:23 CDT to Letitia Moon. Interpretive Data Nonreactive: Antibodies to HCV [...] LAB MICROBIOLOGY - GENERAL ORDERABLES Final Result [facility] [address] Department [place] [address] * Hemoglobin A1c (11/02/2023 8:03 PM CDT) Hgb A1C 4.7 4.0 - 5.6 % Estimated Average Glucose 88 mg/dL [facility] Comment: The ADA recommends reporting an estimated Average Glucose (eAG) with all Hemoglobin A1c results using the equation derived from a study of 507 normal and diabetic adults. Minority populations were underrepresented and children were not included. (Diabetes Care 31:3069-2618, 2008). The eAG is not equivalent to a fasting glucose. Blood 11/02/2023 8:03 PM CDT 11/02/2023 8:03 PM CDT us Bhavesh Mariano MD LAB BLOOD ORDERAB LES Final Result [facility] [address] Department [place] [address] * Lipid panel (11/02/2023 8:03 PM CDT) [...] on 2018. HDL 55 >=40 mg/dL [facility] Comment: Interpretive Data Ages < or = [...] 2018. LDL, calculated 118 <=129 mg/dL [facility] Comment: Interpretive Data Ages < or = [...] on 2018. Non-HDL Cholesterol 134 mg/dL [facility] Comment: Interpretive Data Ages < or = [...] revised on 2018. Chol/HDL ratio 3 [facility] Blood 11/02/2023 8:03 PM CDT 11/02/2023 8:03 PM CDT Bhavesh Mariano MD LAB BLOOD ORDERAB LES Final Result Performing Organization Address [facility] Co de Phone Number [facility] [address] Department [place] [address] * (ABNORMAL) Hepatitis A antibody, total Blood (11/02/2023 7:48 PM CDT) Pathologist [facility] Hep A total Reactive( A) Nonreactive Comment:Testing performed by : [facility], [address] [place] [address]., [id number] Blood 11/02/2023 7:48 PM CDT 11/03/2023 10:02 AM CDT Bhavesh Mariano MD LAB MICROBIOLOGY - GENERAL ORDERABLES Final Result Performing Organization Address [facility] Co de Phone Number [place] [address] [place] [address] * RPR Blood (11/02/2023 7:48 PM CDT) Pathologist [facility] RPR Nonreactive Nonreactive Blood 11/02/2023 7:48 PM CDT 11/03/2023 10:45 AM CDT Bhavesh Mariano MD LAB MICROBIOLOGY - GENERAL ORDERABLES Final Result Performing Organization Address [facility] Co de [place] [address] [place] [address] * (ABNORMAL) Urinalysis reflex to microscopic and culture Urine (03/12/2023 1:13 AM CDT) Pathologist [facility] Color, ur Yellow Yellow Clarity, ur Clear Clear [facility] Specific gravity, ur 1.009 1.003 - 1.030 [facility]ARA pH, urine 5.0 [facility] Comment: Interpretive Data U rine pH is affected by diet, medications, systemic acid-base disturbances, and renal tubular function. pH may affect urinary stone formation. For example, urine pH below 6.0 may help reduce the tendency for calcium phosphate stones and pH greater than 6.0 may reduce the tendency for uric acid stone formation. Source: [facility] Current Interpretive Data was last revised on 2017 Protein, ur ql 3+(A) Negative [facility] Glucose, ur ql Negative Negative [facility] Ketones, ur Negative Negative [facility] Bilirubin, ur Negative Negative [facility] Blood, ur 3+(A) Negative [facility] Urobilinogen, ur <2.0 <2.0 mg/dL [facility] Nitrite, ur Negative Negative [facility] Leukocyte esterase, ur 1+(A) Negative [facility] UA reflex comment Reflex to microscopic UA will be performed. [facility] Urine 03/12/2023 1:13 AM CDT 03/12/2023 1:27 AM CDT Trey Pritchett MD LAB MICROBIOLOGY - GENERAL O RDERABLES Final Result [facility] [address] [facility] Department [place] [address] from Last 3 Months or Most Recently Relevant to Health Maintenance Insurance [facility] MEDICARE ADVANTAGE [facility] MEDICARE ADVANTAGE [facility] MEDICARE ADVANTAGE Advance Directives For more information, please contact: [phone] Documents on File Type Date Recorded Patient Presales Engineer Expl anation Power of Livestock Farmworker 06/23/2021 4:27 PM * Full Code (Latest [...] 6:40 PM 09/01/2023 5:27 PM Care Teams Solution Advisor Relationship Specialty Start Date End [place] Idris [place] MD [address] [address] PCP - General Family Practice 05/18/24 Matteo Brooks MD [address] [facility], [address] [address] Medical Oncologist/Folding Rules Printing Machine Operator Medical Oncology 03/31/23 Gerson Keith MD [address] [facility], [address] [address] Consulting Physician Nephrology 05/07/23 Cassie Márquez MD [address] [place] [address] Consulting Physician Family Medicine 06/25/23 Seth Henderson IV, MD [address] [place] [address] Consulting Physician General Surgery 10/21/23 Seth Henderson IV, MD [facility] [address] [address] Consulting Physician General Surgery 10/21/23 David Gorman MD [address] [place] [id number] Radiation Oncologist Radiation Oncology 10/21/23 Blayne Sepulveda MD [address] [place] [address] [id number] Consulting Physician General Surgery 03/10/24 Gerson Forrester DO [address] [place] [address] Consulting Physician General Surgery 03/14/24
--- OUTSIDE RECORDS SUMMARY | 2024-08-19 21:17 | XMS_ITS ---
[facility] Organization [facility] [address] Address [address] [place] [address] Care Team Providers Care Tissue Technician Name Role Phone Matteo Brooks MD Unavailable [phone] Gerson Keith MD Unavailable Cassie Márquez MD Unavailable Beatriz TO MD, Seth Vasquez Unavailable Beatriz TO MD, Lyman Lansing Unavailable [phone] David Gorman MD Unavailable [phone] Blayne Sepulveda MD Unavailable Gerson Forrester DO Unavailable [phone] Idris Sanchez MD Primary Care Provi simba Dialysis Access Sites Type Status Location Placement Date Removal Da te Hemodialysis Cath Double 02/01/24 Tunneled catheter Right Internal Jugular Inactive Right Neck (side) - Anterior 02/01/2024 04/19/2024 Hemodialysis Cath Double 01/27/24 Right Femoral Inactive Right Thigh - Anterior 01/27/2024 Hemodialysis Cath Double 03/12/23 Right Subclavian Inactive Right Breast - Upper 03/12/2023 0 01/27/2024 Procedures Procedure Name Priority Date/Time Associated Diagnosis Comments XR CHEST PA LATERAL 2 VIEWS Schedule GENEVIEVE, Read GENEVIEVE (Appt Today, Awaiting Results) 08/01/2024 9:41 AM CDT Elevated blood pressure reading in office with diagnosis of hypertension COPD with acute exacerbation (HCC) INFLUENZA A/B, RSV, AND COVID-19 PCR Routine 07/28/2024 6:01 PM PIPE ORGAN INSTALLER Elevated blood pressure reading in office with diagnosis of hypertension EGFR Routine 06/27/2024 3:37 PM PIPE ORGAN INSTALLER Currently asymptomatic HIV infection, with history of HIV-related illness (HCC) COMPREHENSIVE METABOLIC PANEL Routine 06/27/2024 3:37 PM PIPE ORGAN INSTALLER Currently asymptomatic HIV infection, with history of HIV-related illness (HCC) T-HELPER CELLS (CD4) COUNT Routine 06/27/2024 3:37 PM PIPE ORGAN INSTALLER Currently asymptomatic HIV infection, with history of HIV-related illness (HCC) HEPATITIS B DNA, QUANTITATIVE, PCR Routine 06/27/2024 3:37 PM PIPE ORGAN INSTALLER Currently asymptomatic HIV infection, with history of HIV-related illness (HCC) HIV-1 RNA, QUANTITATIVE, PCR Routine 06/27/2024 3:37 PM PIPE ORGAN INSTALLER Currently asymptomatic HIV infection, with history of HIV-related illness (HCC) CT ABDOMEN PELVIS W CONTRAST IP Routine 04/15/2024 6:22 PM PIPE ORGAN INSTALLER TB TEST, QUANTIFERON GOLD Routine 01/21/2024 10:15 [...] or Most Recently Relevant to Health Maintenance Allergies No known active allergies Medications albuterol [...] WHEEZING OR FOR SHORTNESS OF BREATH 04/14/20 Active Saline NasaL 0.65 % nasal spray [...] 07/11/2024 Assessment & Plan (07/17/2024 8:36 AM PIPE ORGAN INSTALLER): 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 Salas, and was given Revee. No current complaints of urinary outlet syndrome. Last Assessment & Plan: Noted on recent renal ultrasound. Reports that he recently saw urologist, Dr. Salas, and was given Revee. No current complaints of urinary outlet syndrome. [...] screening Assessment & Plan (07/28/2021 1:03 PM PIPE ORGAN INSTALLER): He has a history of chronic hep [...] Imdur and Losartan. He will see his refinery operator next week to discuss further changes in [...] controlled. He follows with Dr. Parham and refinery operator. No changes in medications today. Note that [...] regimen. Referral to infectious disease specialists at [facility] has been made, but apparently, they [...] regimen. 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 Full details of background history on prior notes (see my note from 11/02/2023. His girlfriend Radha is assisting him time cycle operator for all his healthcare needs including giving [...] for drug interactions with ART. 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 Details of history on HPI. His girlfriend Radha is assisting him time cycle operator for all his healthcare needs including giving [...] for drug interactions with ART. 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 Details of history on HPI. His girlfriend Radha is assisting him time cycle operator for all his healthcare needs including giving [...] for drug interactions with ART. Recommended resource: https://www.hiv-druginteractions.org/return checker Assessment & Plan (10/17/2021 11:24 AM [...] BID + Prezcobix - Discussed adherence at [facility] bactrim for PJP prophylaxis - RTC in [...] BID + Prezcobix - Discussed adherence at [facility] bactrim for PJP prophylaxis - RTC in 4 weeks for close follow up - Discussed partner getting on PrEP; HIV test for partner today Assessment & Plan (07/28/2021 1:01 PM PIPE ORGAN INSTALLER): Mr. Salcedo is a 66 year old [...] up - Discussed partner getting on PrEP Immunizations Immunization Administration Dates Next Due COVID-19 mRNA (UTILICASE) 0.3 m L (30 mcg) vaccine (12 years and up) 06/27/2024,02/16/2023 Hep B, Unspecified 11/27/2011,10/28/2011, 012 Influenza, Quad, Adjuvantate d, Intramuscular 05/23/2022,03/03/2021,02/19/2020 Influenza, Quadrivalent, Hig h Dose, Preservative Free, Intrr 02/16/2023 Influenza, Quadrivalent, Rec ombinant, Egg Free, Preservative Free, Intramuscular 04/25/2019,06/16/2018 Influenza, Quadrivalent, Spl it, Intramuscular 01/28/2017 Influenza, Quadrivalent, Spl it, Preservative Free, Intramuscular 01/28/2017,06/23/2016,06/19/2014 Influenza, Unspecified 02/23/2024,2022,02/19/2020,02/11 Meningococcal MCV4P (Menactra) 10/14/2018,2018 Kontron SARS-CoV-2 Monovalent Vaccination (12+ Yrs) PURPLE 07/07/2021 Pfizer Sars-Cov-2 Bivalent V accination (12+ YRS) 02/16/2023,06/24/2022 [...] drink = 0.6 oz pur e alcohol) [facility] [employer] Answer Date Recorded In the past 12 months has e [employer], gas, oil, or water [employer] threatened to shut off services in your [...] often do you attend chur ch or presybeterian services? Never 04/11/2024 Do you belong to any clubs o r organizations such as temple groups, unions, fraternal or athletic groups, or [...] place to sleep or slept in a fci (including now)? No 08/30/2023 PHQ-9 Answer Date [...] any time in the [facility] were you homeless or living in a fci (including now)? No 04/11/2024 Personal Safety Answer Date Recorded Have you ever been in or are you currently in a harmful physical or emotional relationship or is someone making you feel afraid or unsafe? Denies 04/07/2024 Sex and Gender Information Value Date Recorded Sex Assigned at Not on file Legal Sex Male 11:35 AM PIPE ORGAN INSTALLER Gender Identity Not on file Sexual Orientation [...] Mass Index 24.67 08/15/2024 3:13 PM CDT Results * XR Chest PA Lateral 2 [...] Alf Rios M.D. MZ T: Report ID: [id number] Reading Location: [id number] Narrative 08/01/2024 10:02 AM CDT EXAM DESCRIPTION: [...] 10:02 AM - Electronically signed by Alf PEREZ T: Report ID: [id number] Reading Location: [place] [address] Procedure Note Alf Rios MD - 08/01/2024 [...] 10:02 AM - Electronically signed by Alf Alcantar.D. MZ T: Report ID: [id number] Reading Location: [place] [address] Merrick Aguirre NP IMG XR PROCEDURES Edited Result - Final * (ABNORMAL) Influenza A/B, RSV, and COVID-19 PCR Nasopharyngeal (07/28/2024 6:01 PM PIPE ORGAN INSTALLER) [facility] COVID-19 RNA Negative Negative Influenza A RNA Negative Negative [facility] Influenza B RNA Negative Negative [facility] RSV RNA Positive(A) Negative [facility] Comment: Interpretive data: Testing performed by [facility]. This test is performed using the [employer] Xpert Xpress CoV-2/Flu/RSV plus assay. This is a multiplex, real-time reverse transcriptase PCR assay intended for the qualitative detection of nucleic acid from SARS-CoV-2, influenza A, influenza B, and respiratory syncytial virus. This assay has been cleared by the [place] Food and Drug administration. The performance characteristics have been verified by the [facility]. Results must be considered in the clinical context, and a negative result does not rule out infection. Interpretive Data last revised 2023 Nasopharyngeal 07/28/2024 6: 01 PM PIPE ORGAN INSTALLER 07/28/2024 11:48 PM PIPE ORGAN INSTALLER Narrative [facility] - 07/29/2024 12:31 AM PIPE ORGAN INSTALLER Is the Patient experiencing symptoms consistent with COVID?->Yes Reason for testing?->Symptomatic Known exposure to confirmed or suspected COVID-19 case?->No Merrick Aguirre NP LAB MICROBIOLOGY - GENERAL ORDE [facility] Final Result [facility] [address] Department [place] [address] * (ABNORMAL) eGFR (06/27/2024 3:37 PM PIPE ORGAN INSTALLER) [facility] eGFR 7(L) >=60 mL/min/1. 73 m2 [...] last reviewed 2021. Blood 06/27/2024 3:37 PM PIPE ORGAN INSTALLER 06/27/2024 7:08 PM PIPE ORGAN INSTALLER Bhavesh Mariano MD LAB BLOOD ORDERAB LES Final Result DARA SCHWARTZ [address] Department [place] [address] * (ABNORMAL) Hepatitis B (HBV) DNA PCR, quantitative Blood (06/27/2024 3:37 PM PIPE ORGAN INSTALLER) [facility] HBV DNA Result Detected( A) [facility] Comment: The quantifiable range of this assay is 10 IU/mL to 1,000,000,000 IU/mL (1.00 log IU/mL to 9.00 log IU/mL). Testing was performed by the VY 6800 HBV Test version 2.0 ([employer] Testing performed at [facility] Current Interpretive Data was last revised on 2020. Testing performed by: [facility], [address] [place] [address] HBV DNA IU/mL 11,600,00 0 IUnits/mL DARA SCHWARTZ Comment:Testing performed by : [facility], [address] [place]., [address] HBV DNA log IU/mL 7.06 log IUnits/mL DARA SCHWARTZ Comment:Testing performed by : [facility], [address] [place]., [address] Blood 06/27/2024 3:37 PM PIPE ORGAN INSTALLER 06/28/2024 10:05 AM PIPE ORGAN INSTALLER Bhavesh Mariano MD LAB MICROBIOLOGY - GENERAL ORDERABLES Final Result Performing Organization Address [facility] Co de Phone Number [facility] [address] [place] [address] [facility] * (ABNORMAL) HIV-1 RNA PCR, quantitative Blood (06/27/2024 3:37 PM PIPE ORGAN INSTALLER) [facility] HIV-1 RNA Detected( A) [facility] Comment: The quantifiable range of this assay is 20 copies/mL to 10,000,000 copies/mL (1.30 log copies/mL to 7.00 log copies/mL). Testing was performed by the VY 6800 HIV-1 Test([employer] Testing performed at [facility] Current Interpretive Data was last revised on 2020. Testing performed by: [facility], [address] [place]., [address] HIV-1 RNA, copies/mL 92 copies/mL [facility] Comment:Testing performed by : [facility], [address] [place]., [address] HIV-1 RNA, log 1.96 log cps/mL [facility] Comment:Testing performed by : [facility], [address] [place]., [address] Blood 06/27/2024 3:37 PM PIPE ORGAN INSTALLER 06/28/2024 10:05 AM PIPE ORGAN INSTALLER Bhavesh Mariano MD LAB MICROBIOLOGY - GENERAL ORDERABLES Final Result Performing Organization Address City/[facility]/ZIP Co de Phone Number DARA [address] [place] [address] [facility] * (ABNORMAL) T-helper cells (CD4) count (06/27/2024 3:37 PM PIPE ORGAN INSTALLER) [facility] WBC 3.7(L) 3.8 - 9.9 K/cumm Lymphocyte Pct 37.0 16.0 - 52.0 % [facility] Lymphocyte # 1,369 1,200 - 3,500 cells/mcL [facility] CD3 pct 76.6 60.0 - 85.0 % [facility] Comment: Interpretive Data The tests utilizing Class I analyte specific reagents (ASRs) cited in this report (if any, and unless otherwise documented) were developed and their performance characteristics determined by [facility]. They have not been cleared or [...] CD3 Absolute 1,049 720 - 2,975 cells/mcL [facility] CD4 pct 10.7(L) 29.0 - 59.0 % [facility] Comment: Interpretive Data The tests utilizing Class I analyte specific reagents (ASRs) cited in this report (if any, and unless otherwise documented) were developed and their performance characteristics determined by [facility]. They have not been cleared or [...] CD4 Absolute 146(L) 348 - 2,065 cells/mcL [facility] CD8 pct 65.9(H) 12.0 - 43.0 % [facility] Comment: Interpretive Data The tests utilizing Class I analyte specific reagents (ASRs) cited in this report (if any, and unless otherwise documented) were developed and their performance characteristics determined by [facility]. They have not been cleared or [...] CD8 Absolute 902 144 - 1,505 cells/mcL [facility] CD19 pct 7.5 7.0 - 23.0 % [facility] Comment: Interpretive Data The tests utilizing Class I analyte specific reagents (ASRs) cited in this report (if any, and unless otherwise documented) were developed and their performance characteristics determined by [facility]. They have not been cleared or [...] CD19 Absolute 103 84 - 805 cells/mcL [facility] [id number] pct 14.1 6.0 - 29.0 % [facility] Comment: Interpretive Data The tests utilizing Class I analyte specific reagents (ASRs) cited in this report (if any, and unless otherwise documented) were developed and their performance characteristics determined by [facility]. They have not been cleared or [...] Interpretive Data was last revised on 2013 [id number] Absolute 193 72 - 1,015 cells/mcL [facility] CD4/CD8 ratio 0.2(L) 0.7 - 3.5 [facility] Blood 06/27/2024 3:37 PM PIPE ORGAN INSTALLER 06/27/2024 6:40 PM PIPE ORGAN INSTALLER us Bhavesh Mariano MD LAB BLOOD ORDERAB LES Final Result DARA SCHWARTZ [address] Department [place] [address] * (ABNORMAL) Comprehensive metabolic panel (06/27/2024 3:37 PM PIPE ORGAN INSTALLER) Sodium 135 135 - 145 mmol/L Potassium, pl 4.7 3.3 - 4.9 mmol/L [facility] Chloride 94(L) 97 - 110 mmol/L [facility] CO2 24 22 - 32 mmol/L CERNER [...] Units/L [facility] Blood 06/27/2024 3:37 PM PIPE ORGAN INSTALLER 06/27/2024 6:42 PM PIPE ORGAN INSTALLER us Bhavesh Mariano MD LAB BLOOD ORDERAB LES Final Result [facility] [address] Department [place] [address] * CT Abdomen Pelvis W Contrast (04/15/2024 6:22 PM PIPE ORGAN INSTALLER) Anatomical Region Laterality Modality Body N/A Computed Tomogra phy 04/15/2024 8:50 PM PIPE ORGAN INSTALLER Narrative 04/15/2024 9:50 PM PIPE ORGAN INSTALLER EXAM DESCRIPTION: CT ABDOMEN PELVIS W CONTRAST [...] 9:50 PM - Electronically signed by Driss Mzea M.D. AR: PATRICK Report ID: [id number] Reading Location: [id number] Procedure Note Driss Meza MD - 04/15/2024 [...] Driss Meza M.D. AR: PATRICK Report ID: [id number] Reading Location: [place] [address] Isidro Daigle MD [facility] CT PROCEDURES Final Resu lt * TB test, quantiferon gold (01/21/2024 10:15 AM CDT) Pathologist [facility] Quantiferon TB Gold Negative Negative [facility] Comment: No interferon-gamma response to M. tuberculosis antigens was detected. Latent infection with M. tuberculosis is unlikely. A single negative result does not exclude infection with M. tuberculosis. In patients at high risk for M.tuberculosis infection, a second test should be considered in accordance with the 2017 ATS/IDSA/CDC Clinical Practice Guidelines for Diagnosis of Tuberculosis in Adults and Children [Chrisinsohmanuel ROSE et. al. Clin. Infect. Dis. 2017;64(2):111-115]. The reference range for the 'TB1 Ag minus Nil Result' and 'TB2 Ag minus Nil Result' is an Interferon-gamma level <0.35 IU/mL. TB-Nil 0.00 IUnits/mL [facility] TB2-Nil 0.01 IUnits/mL [facility] Mitogen-Nil >10.00 IUnits/mL [facility] NIL 0.02 IUnits/mL [facility] Comment: Test Performed by: [place] [address] [employer] Block Setter: Henry Radford Ph.D.; CLIA# [id number] Blood 01/21/2024 10:1 5 AM CDT 01/21/2024 10:35 AM CDT Negrito Amaya MD LAB BLOOD ORDERABLES Trina sabiha Result DARA [address] Department [place] [address] [facility] * (ABNORMAL) Hepatitis C antibody Blood (11/02/2023 8:16 PM CDT) Pathologist [facility] Hep C Ab Reactive( A) Nonreactive Comment: Critical result called to and read back by Janis MORAES) on 11/03/2023 08:22:23 CDT to Letitia Moon. [...] 8:16 PM CDT 11/02/2023 8:16 PM CDT Bhavesh Mariano MD LAB MICROBIOLOGY - GENERAL ORDERABLES Final Result Performing Organization Address [facility] Co de Phone Number [facility] [address] [place] [address] * Hemoglobin A1c (11/02/2023 8:03 PM CDT) Hgb A1C 4.7 4.0 - 5.6 % Estimated Average Glucose 88 mg/dL DAAR SCHWARTZ Comment: The ADA recommends reporting an estimated Average Glucose (eAG) with all Hemoglobin A1c results using the equation derived from a study of 507 normal and diabetic adults. Minority populations were underrepresented and children were not included. (Diabetes Care 31:1975-4431, 2008). The eAG is not equivalent to a fasting glucose. Blood 11/02/2023 8:03 PM CDT 11/02/2023 8:03 PM CDT Bhavesh Mariano MD LAB BLOOD ORDERAB LES Final Result Performing Organization Address [facility] Co de Phone Number ANTONI[place]EN [address] [facility] [place] [address] * Lipid panel (11/02/2023 8:03 PM CDT) Pathologist [facility] Cholesterol 189 30 - 199 mg/dL Comment: [...] on 2018. Triglycerides 79 <=149 mg/dL DARA Comment: Interpretive Data Ages < [...] last revised on 2018. Chol/HDL ratio 3 [facility] Blood 11/02/2023 8:03 PM CDT 11/02/2023 8:03 PM CDT Bhavesh Mariano MD LAB BLOOD ORDERAB LES Final Result Performing Organization Address City/[facility] Co de Phone Number DARA [address] [employer] [place], [place] [id number] * (ABNORMAL) Hepatitis A antibody, total Blood (11/02/2023 7:48 PM CDT) Hep A total Reactive( A) Nonreactive Comment:Testing performed by : [facility], [address] [facility], [place]., [address] Blood 11/02/2023 7:48 PM CDT 11/03/2023 10:02 AM CDT Bhavesh Mariano MD LAB MICROBIOLOGY - GENERAL ORDERABLES Final Result Performing Organization Address City/[facility] Co de Phone Number DARA [address] [place] [address] * RPR Blood (11/02/2023 7:48 PM CDT) RPR Nonreactive Nonreactive Blood 11/02/2023 7:48 PM CDT 11/03/2023 10:45 AM CDT Bhavesh Mariano MD LAB MICROBIOLOGY - GENERAL ORDERABLES Final Result Performing Organization Address City/[facility]/ZIP Co de Phone Number DARA [address] [place] [address] * (ABNORMAL) Urinalysis reflex to microscopic and culture Urine (03/12/2023 1:13 AM CDT) Color, ur Yellow Yellow Clarity, ur Clear Clear DARA Specific gravity, ur 1.009 1.003 - 1.030 [facility] pH, urine 5.0 [facility] Comment: Interpretive Data U rine pH is affected by diet, medications, systemic acid-base disturbances, and renal tubular function. pH may affect urinary stone formation. For example, urine pH below 6.0 may help reduce the tendency for calcium phosphate stones and pH greater than 6.0 may reduce the tendency for uric acid stone formation. Source: [facility] [employer] Current Interpretive Data was last revised on 2017 Protein, ur ql 3+(A) Negative [facility] Glucose, ur ql Negative Negative [facility] Ketones, ur Negative Negative [facility] Bilirubin, ur Negative Negative [facility] Blood, ur 3+(A) Negative [facility] Urobilinogen, ur <2.0 <2.0 mg/dL [facility] Nitrite, ur Negative Negative [facility] Leukocyte esterase, ur 1+(A) Negative [facility] UA reflex comment Reflex to microscopic UA will be performed. DARA Urine 03/12/2023 1:13 AM CDT 03/12/2023 1:27 AM CDT us Trey Pritchett MD LAB MICROBIOLOGY - GENERAL O RDERABLES Final Result DARA [address] [facility] Department [place] [address] from Last 3 Months or Most Recently Relevant to Health Maintenance
--- OUTSIDE RECORDS SUMMARY | 2024-08-19 21:17 | XMS_ITS | Encounter Summary ---
Author Organization [facility] Address [address] [place] [address] Phone Care Team Providers Care Advertising Intern Name Role Phone Josh Parham MD Primary Care Provider David Gorman MD Unavailable [phone] Matteo Brooks MD Unavailable + [phone] Gerson Keith MD Unavailable Cassie Márquez MD Unavailable Beatriz TO MD, Lyman Lansing Unavailable Beatriz TO MD, Lyman Lansing Unavailable [phone] David Gorman MD Unavailable [phone] Blayne Sepulveda MD Unavailable Gerson Forrester DO Unavailable [phone] Idris Sanchez MD Primary Care Provi simba Encounter Details Date Type Department Care Team (Late st Contact Info) Description 08/30/2023 Conference of Physicians/Providers [facility] Physicians [facility] Oncology [address] [facility] [address] [place] [address] Matteo Brooks MD [address] [facility] [address] [place] [address] Social History Tobacco Use Types Packs/Day Years Used Date Smoking Tobacco: Some Days Cigarettes 0.3 10 Smokeless Tobacco: Never Comments:Last cigarette 04/24 0 Alcohol Use Standard Drinks/Week Comments Not Currently 0 (1 standard drink = 0.6 oz pur e alcohol) [facility] Utilities Answer Date Recorded In the past 12 months has e [employer], gas, oil, or water [employer] threatened to shut off services in your home? No 08/30/2023 Social Connection and Isolat ion Panel [NHANES] Answer Date Recorded In a typical week, how many times do you talk on the phone with family, friends, or neighbors? More than three times a week 08/30/2023 How often do you get togethe r with friends or relatives? More than three times a week 08/30/2023 How often do you attend chur ch or uatsdin services? Never 08/30/2023 Do you belong to any clubs o r organizations such as bahai groups, unions, fraternal or athletic groups, or school groups? No 08/30/2023 How often do you attend meet ings of the clubs or organizations you belong to? Never 08/30/2023 Are you , , di vorced, , never , or living with a partner? Living with partner 08/30/2023 AUDIT-C Answer Date Recorded Q1: How often do you have a drink containing alcohol? Never 2023 Q2: How many drinks containi ng alcohol do you have on a typical day when you are drinking? Patient does not drink Q3: How often do you have si x or more drinks on one occasion? Never 2023 Overall Financial Resource Strain (CARDIA) Answe r Date Recorded How hard is it for you to pa y for the very basics like food, housing, medical care, and heating? Not hard at all 08/30/2023 Hunger Vital Sign Answer Date Recorded Within the past 12 months, y ou worried that your food would run out before you got the money to buy more. Never true 08/30/19 24 Within the past 12 months, t he food you bought just didn't last and you didn't have money to get more. Never true 08/30/2023 PRAPARE - Transportation Answer Date Re corded In the past 12 months, has l ack of transportation kept you from medical appointments or from getting medications? No 12/2023 In the past 12 months, has l ack of transportation kept you from meetings, work, or from getting things needed for daily living? No 08/30/2023 Housing Stability Vital Sign Answer Tk e [...] place to sleep or slept in a penitentiary (including now)? No 08/30/2023 Personal Safety Answer Date Recorded Have you ever been in or are you currently in a harmful physical or emotional relationship or is someone making you feel afraid or unsafe? Denies 08/29/2023 Sex and Gender Information Value Date Recorded Sex Assigned at Not on file Legal Sex Male 11:35 AM STEAM GENERATING POWERPLANT MECHANIC Gender Identity Not on file Sexual Orientation Not on file documented as of this encounter Plan of Treatment Upcoming Encounters Date Type Department Care Team (Latest Contact Info) Description 10/05/2024 7:30 AM CDT Hospital Encounter [facility] OR [address] [place] [address] Seth Henderson IV, MD [address] [place] [address] 10/05/2024 7:30 AM CDT - 10/05/2024 9:00 AM CDT Surgery [facility] OR [address] [place] [address] Seth Henderson IV, MD [address] [place] [address] RECTAL EXAM UNDER ANESTHESIA WITH EXCISION ANAL MASS Scheduled Procedures Name Priority Associated Diagnoses Date/Ti me HEMORRHOIDECTOMY ANAL CANCER 10/05/2024 7:30 AM CDT COLONOSCOPY ANAL CANCER 10/05/2024 7:30 AM CDT documented as of this encounter Visit Diagnoses Not on filedocumented in this encounter Additional Health Concerns Infection Onset Date Last Indicated Resolved Time MRSA Comment:BLOOD CULTURES 01/16/24 AND 01/17/24 10/12/2023 10/12/2023 04/20/2024 3:[address] COVID: Suspected 03/09/2024 03/09/2024 03/09/2024 6:39 AM CDT COVID: Suspected 07/28/2024 07/28/2024 07/29/2024 12:32 AM STEAM GENERATING POWERPLANT MECHANIC RSV, droplet 07/28/2024 07/28/2024 08/04/2024 3:05 AM CDT documented as of this encounter Care Teams Advertising Intern Relationship Specialty Start Date End Date Josh Parham MD PCP - General Internal Medicine 06/12/21 05/17/24 Idris Sanchez MD [address] [address] PCP - General Family Practice 05/18/24 David Gorman MD Radiation Oncologist Radiation Oncology 03/25/23 Matteo Brooks MD [address] [facility], [address] [address] Medical Oncologist/District Sales Coordinator Medical Oncology 03/31/23 Gerson Keith MD [address] [facility], [address] [address] Consulting Physician Nephrology 05/07/23 Cassie Márquez MD [address] [facility] [place] [address] Consulting Physician Family Medicine 06/25/23 Seth Henderson IV, MD [address] [place] [address] Consulting Physician General Surgery 10/21/23 Seth Henderson IV, MD [address] [place] [address] [phone] Consulting Physician General Surgery 10/21/23 David Gorman MD [address] [place] [address] [phone] Radiation Oncologist Radiation Oncology 10/21/23 Blayne Sepulveda MD [address] [place] [address] 577449 Consulting Physician General Surgery 03/10/24 Gerson Forrester DO [address] [place] [address] [phone] Consulting Physician General Surgery 03/14/24 documented as of this encounter
--- OUTSIDE RECORDS SUMMARY | 2024-08-19 21:17 | XMS_ITS | Encounter Summary ---
Author Organization [facility] Address [address] [place] [address] Phone Care Team Providers Care Taker Away Name Role Phone Josh Parham MD Primary Care Provider [phone] Matteo Brooks MD Unavailable [phone] Gerson Keith MD Unavailable Cassie Márquez MD Unavailable Beatriz TO MD, Seth Vasquez Unavailable Beatriz TO MD, Lyman Lansing Unavailable David Gorman MD Unavailable [phone] Blayne Sepulveda MD Unavailable Gerson Forrester DO Unavailable [phone] Idris Sanchez MD Primary Care Provi simba Encounter Details Date Type Department Care Team (Late st Contact Info) Description 12/17/2023 Conference of Physicians/Providers [facility] [place] Oncology [facility] [facility] [address] [place] [address] Addis Uriarte, RN Social History Tobacco Use Types Packs/Day Years Used Date Smoking Tobacco: Some Days Cigarettes 0.3 10 Passive Smoke Exposure: Never Smokeless Tobacco: Never Comments:Last cigarette 04/24 0 Alcohol Use Standard Drinks/Week Comments Not Currently 0 (1 standard drink = 0.6 oz pur e alcohol) [facility] Utilities Answer Date Recorded In the past 12 months has th e electric, gas, oil, or water company threatened to shut off services in your home? No 10/11/2023 Social Connection and Isolat ion Panel [NHANES] Answer Date Recorded In a typical week, how many times do you talk on the phone with family, friends, or neighbors? More than three times a week 10/11/2023 How often do you get togethe r with friends or relatives? More than three times a week 10/11/2023 How often do you attend chur ch or adventist services? Never 10/11/2023 Do you belong to any clubs o r organizations such as sikhism groups, unions, fraternal or athletic groups, or school groups? No 10/11/2023 How often do you attend meet ings of the clubs or organizations you belong to? Never 10/11/2023 Are you , , di vorced, , never , or living with a partner? Living with partner 10/11/2023 AUDIT-C Answer Date Recorded Q1: How often do you have a drink containing alcohol? Never 2023 Q2: How many drinks containi ng alcohol do you have on a typical day when you are drinking? Patient does not drink 4 Q3: How often do you have si x or more drinks on one occasion? Never 2023 Overall Financial Resource Strain (CARDIA) Answe r Date Recorded How hard is it for you to pa y for the very basics like food, housing, medical care, and heating? Not hard at all 10/11/2023 Hunger Vital Sign Answer Date Recorded Within the past 12 months, y ou worried that your food would run out before you got the money to buy more. Never true 10/11/19 24 Within the past 12 months, t he food you bought just didn't last and you didn't have money to get more. Never true 10/11/2023 PRAPARE - Transportation Answer Date Re corded In the past 12 months, has l ack of transportation kept you from medical appointments or from getting medications? No 09/22 In the past 12 months, has l ack of transportation kept you from meetings, work, or from getting things needed for daily living? No 10/11/2023 Housing Stability Vital Sign Answer Tk e [...] in a penitentiary (including now)? No 08/30/2023 Housing Stability Vital Sign Answer Tk e Recorded In the last 12 months, was t here a time when you were not able to pay the mortgage or rent on time? No 10/11/2023 In the past 12 months, how m any times have you moved where you were living? 1 10/11/2023 At any time in the past 12 m [facility], were you homeless or living in a penitentiary (including now)? No 10/11/2023 Personal Safety Answer Date Recorded Have you ever been in or are you currently in a harmful physical or emotional relationship or is someone making you feel afraid or unsafe? 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 Gender Identity Not on file Sexual Orientation Not on file documented as of this encounter Plan of Treatment Upcoming Encounters Date Type Department Care Team (Latest Contact Info) Description 10/05/2024 7:30 AM CDT Hospital Encounter [facility] OR [address] [place] [address] Seth Henderson IV, MD [facility] [address] [address] 10/05/2024 7:30 AM CDT - 10/05/2024 9:00 AM CDT Surgery [facility] [place] [address] [place] [address] Seth Henderson IV, MD [facility] [address] RECTAL EXAM UNDER ANESTHESIA WITH EXCISION ANAL [...] COVID: Suspected 07/28/2024 07/28/2024 07/29/2024 12:32 AM COMPUTER LANGUAGE CODER RSV, droplet 07/28/2024 07/28/2024 08/04/2024 3:05 AM CDT documented as of this encounter Care Teams Taker Away Relationship Specialty Start Date End Date Josh Parham MD PCP - General Internal Medicine 06/12/21 05/17/24 Idris Sanchez MD [address] [address] PCP - General Family Practice 05/18/24 Matteo Brooks MD [address] [facility], [address] [address] Medical Oncologist/Slot Manager Medical Oncology 03/31/23 Gerson Keith MD [address] [facility], [address] [address] Consulting Physician Nephrology 05/07/23 Cassie Márquez MD [address] [place] [address] Consulting Physician Family Medicine 06/25/23 Seth Henderson IV, MD [address] [place] [address] [phone] Consulting Physician General Surgery 10/21/23 Seth Henderson IV, MD [address] [place] [address] [phone] Consulting Physician General Surgery 10/21/23 David Gorman MD [address] [place] [address] [phone] Radiation Oncologist Radiation Oncology 10/21/23 Blayne Sepulveda MD [address] [place] [address] 174339 Consulting Physician General Surgery 03/10/24 Gerson Forrester DO [address] [place] [address] [phone] Consulting Physician General Surgery 03/14/24 documented as of this encounter
--- OUTSIDE RECORDS SUMMARY | 2024-08-19 21:17 | XMS_ITS ---
Author Organization [facility] [address] Address [address] [place] [address] Care Team Providers Care Elementary Instructional Coach Name Role Phone Matteo Brooks MD Unavailable [phone] Gerson Keith MD Unavailable Cassie Márquez MD Unavailable Beatriz TO MD, Lyman Lansing Unavailable Beatriz TO MD, Lyman Lansing Unavailable David Gorman MD Unavailable [phone] Blayne Sepulveda MD Unavailable Gerson Forrester DO Unavailable [phone] Idris Sanchez MD Primary Care Provi simba Active Problems Problem Noted Date Diagnosed Date Muscle spasms of neck 08/15/2024 Chronic hepatitis B 07/11/2024 Assessment & Plan (07/17/2024 8:36 AM AUTOMATIC EQUIPMENT TECHNICIAN): 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 [...] symptoms. 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 Parham CXR (08/03/2016) Aortic tortuosity, ectasia Last [...] saw urologist, Dr. Salas, and was given Aunt Bertha. No current complaints of urinary outlet syndrome. Last Assessment & Plan: Noted on recent renal ultrasound. Reports that he recently saw urologist, Dr. Salas, and was given Aunt Bertha. No current complaints of urinary outlet syndrome. [...] screening Assessment & Plan (07/28/2021 1:03 PM AUTOMATIC EQUIPMENT TECHNICIAN): He has a history of chronic hep [...] Imdur and Losartan. 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 He follows with Dr. Parham and microwave supervisor. No changes in medications today. Note that [...] needed. Complete smoking cessation is advised. 04/25/2019 OVDr. Parham Continue to use Albuterol prn; he [...] regimen. Referral to infectious disease specialists at [facility] has been made, but apparently, they do [...] regimen. 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 Full details of background history on prior notes (see my note from 11/02/2023. His girlfriend Radha is assisting him multimedia specialist for all his healthcare needs including giving [...] for drug interactions with ART. 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 Details of history on HPI. His girlfriend Radha is assisting him multimedia specialist for all his healthcare needs including giving [...] for drug interactions with ART. 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 Details of history on HPI. His girlfriend Radha is assisting him multimedia specialist for all his healthcare needs including giving [...] for drug interactions with ART. Recommended resource: https://www.hiv-druginteractions.org/receiving dock checker Assessment & Plan (10/17/2021 11:24 AM [...] BID + Prezcobix - [facility] bactrim for PJP prophylaxis - [...] BID + Prezcobix - [facility] - Cont bactrim for PJP prophylaxis - RTC in 4 weeks for close follow up - Discussed partner getting on PrEP; HIV test for partner today Assessment & Plan (07/28/2021 1:01 PM AUTOMATIC EQUIPMENT TECHNICIAN): Mr. Salcedo is a 66 year old [...] up - Discussed partner getting on PrEP Current Treatment and Therapy Plans No current plan information found. Past Treatment and Therapy Plans No past plan information found. Lifetime Dose Tracking * Chemical Lifetime Dose Automatic Entry Manual Entr y Fluoro Time 0.985 minutes 0.985 minutes 0 minutes Air kerma at the reference point (Ka,r) 5.9 mGy 5 .9 mGy 0 mGy DLP 398 mGycm 398 mGycm 0 mGycm Resolved Problems Problem Noted Date Diagnosed Date [...] 10:31 AM CDT): Receives HD MWF at [facility] in [facility], currently via RIJ tunneled catheter but undergoing [...] Assessment & Plan: Recent long hospitalization at [facility] in [place], [place]. I have no records from said hospitalization. He continues to use home oxygen. He appears mildly dyspneic at rest, though his lung examination is presently normal. Pulse oximetry on portable oxygen was acceptable today. Consider referral to atomic physics professor at a future visit. Home health referral [...] 30-59 ml/min 06/23/2016 03/12/2023 Overview (07/28/2021): 04/25/2019 OVDr. Dione Simeon, MD at 09/10/2017 Last Assessment & [...] of hepatitis C 08/09/201408/15 Overview (07/28/2021): 04/25/[address] note 08/09/14. Patient has desired no [...] required. Assessment & Plan (07/28/2021 1:02 PM AUTOMATIC EQUIPMENT TECHNICIAN): Unclear if chronic or cleared infection. Will check HCV today. AIDS (acquired immune deficiency syndrome) 04/09/2009 07/11/2024 Overview (05/18/2024): 04/25/2019 Dr. Dione JESUS
--- OUTSIDE RECORDS SUMMARY | 2024-08-19 21:17 | XMS_ITS | Encounter Summary ---
Author Organization [facility] Address [address] [place] [address] Phone Care Team Providers Care Business Services Analyst Name Role Phone Josh Parham MD Primary Care Provider David Gorman MD Unavailable [phone] Matteo Brooks MD Unavailable [phone] Gerson Keith MD Unavailable Cassie Márquez MD Unavailable Beatriz TO MD, Lyman Lansing Unavailable Beatriz TO MD, Lyman Lansing Unavailable David Gorman MD Unavailable Blayne Sepulveda MD Unavailable Gerson Forrester DO Unavailable [phone] Idris Sanchez MD Primary Care Provi simba Encounter Details Date Type Department Care Team (Late st Contact Info) Description 09/06/2023 Conference of Physicians/Providers [facility] Physicians [facility] Oncology [address] [facility] [address] [place] [address] Matteo Brooks MD [address] [facility] 12[address] [place] [address] Social History Tobacco Use Types Packs/Day Years Used Date Smoking Tobacco: Some Days Cigarettes 0.3 10 Smokeless Tobacco: Never Comments:Last cigarette 04/24 0 Alcohol Use Standard Drinks/Week Comments Not Currently 0 (1 standard drink = 0.6 oz pur e alcohol) [facility] Utilities Answer Date Recorded In the past 12 months has e [employer], gas, oil, or water [employer] threatened to shut off services in your [...] often do you attend chur ch or restorationism services? Never 08/30/2023 Do you belong to any clubs o r organizations such as synagogue groups, unions, fraternal or athletic groups, or [...] place to sleep or slept in a custodial (including now)? No 08/30/2023 Personal Safety Answer Date Recorded Have you ever been in or are you currently in a harmful physical or emotional relationship or is someone making you feel afraid or unsafe? Denies 08/29/2023 Sex and Gender Information Value Date Recorded Sex Assigned at Not on file Legal Sex Male 11:35 AM GRAIN WEIGHER Gender Identity Not on file Sexual Orientation Not on file documented as of this encounter Progress Notes * Teodoro Zavaleta MD - 09/06/2023 11:59 PM CDT This patient was discussed at the [facility] Colorectal Tumor board. It was decided that this patient can be complete from a surgical standpoint and does not require any adjuvant therapy. The patient should be referred to a colorectal surgeon for anoscopic surveillance given his historyof anal SCC. Teodoro Zavaleta MD Cosigned by Matteo Brooks MD at 12/08/2023 3:37 PM CDT documented in this encounter Nursing Notes * Addis Uriarte RN - 09/06/2023 11:59 PM CDT Error documented in this encounter Plan of Treatment Upcoming Encounters Date Type Department Care Team (Latest Contact Info) Description 10/05/2024 7:30 AM CDT Hospital Encounter [facility] OR [address] [place] [address] Seth Henderson IV, MD [address] [place] [phone] 10/05/2024 7:30 AM CDT - 10/05/2024 9:00 AM CDT Surgery [facility] [place] [address] [place] [address] Seth Henderson IV, MD [address] [place] [address] [phone] RECTAL EXAM UNDER ANESTHESIA WITH EXCISION ANAL [...] COVID: Suspected 07/28/2024 07/28/2024 07/29/2024 12:32 AM GRAIN WEIGHER RSV, droplet 07/28/2024 07/28/2024 08/04/2024 3:05 AM CDT documented as of this encounter Care Teams Business Services Analyst Relationship Specialty Start Date End Date Josh Parham MD PCP - General Internal Medicine 06/12/21 05/17/24 Idris Sanchez MD [address] [address] PCP - General Family Practice 05/18/24 David Gorman MD Radiation Oncologist Radiation Oncology 03/25/23 Matteo Brooks MD [address] [facility], [address] [address] Medical Oncologist/Back Shoe Operator Medical Oncology 03/31/23 Gerson Keith MD [address] MEDICAL ONCOLOGY, [address] [address] Consulting Physician Nephrology 05/07/23 Cassie Márquez MD [address] [place] [address] Consulting Physician Family Medicine 06/25/23 Seth Henderson IV, MD [address] [place] [address] Consulting Physician General Surgery 10/21/23 Seth Henderson IV, MD [address] [place] [address] [phone] Consulting Physician General Surgery 10/21/23 David Gorman MD [address] [place] [address] Radiation Oncologist Radiation Oncology 10/21/23 Blayne Sepulveda MD [address] [address] Consulting Physician General Surgery 03/10/24 Gerson Forrester DO [address] [address] Consulting Physician General Surgery 03/14/24 documented as of this encounter
--- OUTSIDE RECORDS SUMMARY | 2024-08-19 21:17 | XMS_ITS | Encounter Summary ---
Author Organization [facility] Healthcare Address [address] [place] [address] Care Team Providers Care Student Development Advisor Name Role Phone Josh Parham MD Primary Care Provider [phone] Matteo Brooks MD Unavailable + [phone] Gerson Keith MD Unavailable [phone] Cassie Márquez MD Unavailable Beatriz TO MD, Lyman Lansing Unavailable Beatriz TO MD, Seth Vasquez Unavailable [phone] David Gorman MD Unavailable [phone] Blayne Sepulveda MD Unavailable Gerson Forrester DO Unavailable [phone] Idris Sanchez MD Primary Care Provi simba Encounter Details Date Type Department Care Team (Late st Contact Info) Description 01/11/2024 Telephone [facility] [address] [place] [address] Dany Aguirre MD [address] [facility] [address] [place] [address] Social History Tobacco Use Types Packs/Day Years Used Date Smoking Tobacco: Some Days Cigarettes 0.3 10 Passive Smoke Exposure: Never Smokeless Tobacco: Never Comments:Last cigarette 04/24 0 Alcohol Use Standard Drinks/Week Comments Not Currently 0 (1 standard drink = 0.6 oz pur e alcohol) [facility] Utilities Answer Date Recorded In [...] often do you attend chur ch or alevism services? Never 10/11/2023 Do you belong to any clubs o r organizations such as jewish groups, unions, fraternal or athletic groups, or [...] place to sleep or slept in a group home (including now)? No 08/30/2023 Housing Stability Vital Sign Answer Tk e Recorded In the last 12 months, was t here a time when you were not able to pay the mortgage or rent on time? No 10/11/2023 In the past 12 months, how m any times have you moved where you were living? 1 10/11/2023 At any time in the past 12 m [facility], were you homeless or living in a group home (including now)? No 10/11/2023 Personal Safety Answer Date Recorded Have you ever been in or are you currently in a harmful physical or emotional relationship or is someone making you feel afraid or unsafe? Denies 10/10/2023 Sex and Gender Information Value Date Recorded Sex Assigned at Not on file Legal Sex Male 11:35 AM [employer] Gender Identity Not on file Sexual Orientation Not on file documented as of this encounter Plan of Treatment Upcoming Encounters Date Type Department Care Team (Latest Contact Info) Description 10/05/2024 7:30 AM CDT Hospital Encounter [facility] [place] [address] [place] [id number] Seth Henderson IV, MD [address] [place] [id number] 10/05/2024 7:30 AM CDT - 10/05/2024 9:00 AM CDT Surgery [facility] [place] [address] [place] [id number] Seth Henderson IV, MD [address] [place] [address] [place] [address] RECTAL EXAM UNDER ANESTHESIA WITH EXCISION ANAL [...] COVID: Suspected 07/28/2024 07/28/2024 07/29/2024 12:32 AM [employer] RSV, droplet 07/28/2024 07/28/2024 08/04/2024 3:05 AM CDT documented as of this encounter Care Teams Student Development Advisor Relationship Specialty Start Date End Date Josh Parham MD PCP - General Internal Medicine 06/12/21 05/17/24 Idris Sanchez MD [address] [address] PCP - General Family Practice 05/18/24 Matteo Brooks MD [address] [facility], [address] [address] Medical Oncologist/Fruit Pitter Medical Oncology 03/31/23 Gerson Keith MD [address] [facility], [facility] [address] [place] [address] Consulting Physician Nephrology 05/07/23 Cassie Márquez MD [address] [facility] [place] [address] Consulting Physician Family Medicine 06/25/23 Seth Henderson IV, MD [address] [place] [id number] Consulting Physician General Surgery 10/21/23 Seth Henderson IV, MD [address] [place] [address] [phone] Consulting Physician General Surgery 10/21/23 David Gorman MD [address] [place] [address] [id number] Radiation Oncologist Radiation Oncology 10/21/23 Blayne Sepulveda MD [address] [place] [address] [phone] Consulting Physician General Surgery 03/10/24 Gerson Forrester DO [address] [place] [address] [id number] Consulting Physician General Surgery 03/14/24 documented as of this encounter
[2024-08-19 22:12] VITALS: BP 141/90; PULSE 51; RESP 17; O2SAT 96
[2024-08-19 22:13] VITALS: O2SAT 96
--- NOTE | 2024-08-19 22:19 | ECG_ITS ---
Test Date: 2024-08-20 05:45:59 Measurements Intervals [place] Rate: 66 P: 42 [place]: 194 QRS: -49 QRSD: 98 T: 46 QT: 430 QTc: 451 Interpretive Statements SINUS RHYTHM LEFT ANTERIOR FASCICULAR BLOCK [QRS AXIS <= -45, QR IN I, RS IN II] Compared to ECG 01/16/2024 15:33:36 ABNORMAL ECG Electronically Signed On 08-20-2024 07:43:47 CDT by Gerson Rodríguez M.D.
--- NOTE | 2024-08-19 22:25 | ED.GENADULT ---
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 Instructions: pt takes in afternoon Rukobia 600 mg tablet extended release 12 hr 600 mg PO BID Follow-up/Referrals: UNKNOWN,DOCTOR [Primary Care Provider] -
[2024-08-20] VITALS (14 sets, daily range): BP systolic 94–207; BP diastolic 60–105; PULSE 58–79; RESP 10–20; TEMP 36.3–36.5; O2SAT 90–100; BMI 24.6
[2024-08-20 00:05] LABS: Alveolar/Arterial O2 Gradient 47.1 mmHg; Base Excess ABG -4.4 mEq/l (+/-2.0); Fractional Inspired Oxygen 21 %; Oxygen Content ABG 13.1 %vol (16.0-22.0); PCO2 ABG 39.9 mmHg (35.0-45.0); PO2 ABG 54.9 mmHg (80.0-100.0); PO2 FiO2 Ratio Arterial Blood 2.61 %; Total Hemoglobin 11.1 g/dL (12.0-18.0); pH ABG 7.339 (7.350-7.450)
[2024-08-20 00:07] LABS: Device ROOM AIR; Modified Allen's Test Pass; Oxygen Saturation ABG 86.9 % (95.0-100.0); Oxyhemoglobin 83.8 % THb (90.0-100.0); Site Drawn RIGHT RADIAL
--- NOTE | 2024-08-20 01:45 | PC.NURSE ---
Unsuccessful lab draw attempt x 3. Was only able to get 1 set of cultures. Phlebotomy notified. Dr Hummel aware.
--- NOTE | 2024-08-20 02:50 | PC.NURSE ---
Pt found sitting up in bed, feet hanging off edge stating that his nose hurts. Pt stating that he is 46, then 49, and 51. Pt appears very confused, asking to call his mom and Radha. Pt then vomited a large amount of liquid vomit onto floor. CARMINE Zamorano notified and orders received from Dr Hummel for antiemetic and versed to help with getting CT completed. Pt placed on bed alarm and pulled up in bed.
[2024-08-20] MEDS: MIDAZOLAM HCL (*CRX) 2 MG/2 ML VIAL 5 MG IV PUSH (03:06)
[2024-08-20] MEDS: ONDANSETRON INJ 4 MG/2 ML VIAL IV PUSH ×2 (03:07→07:47)
[2024-08-20 03:20] LABS: Influenza A QL RT-PCR Negative (Negative); Influenza B QL RT-PCR Negative (Negative); RSV RNA, RT-PCR Negative (Negative); SARS-CoV-2 RNA PCR Negative (Negative)
[2024-08-20 04:00] LABS: Basophils Percent Auto 0.7 % (0.2-1.2); Eosinophils Absolute Auto 0.2 K/mm3 (0-0.3); Eosinophils Percent Auto 4.9 % (0-4.4); Hematocrit 32.5 % (42.0-52.0); Hemoglobin 10.5 g/dL (14.0-18.0); Immature Platelet Fraction Pct 3.7 % (0.9-11.2); Lymphocytes Absolute Auto 0.84 K/mm3 (0.9-3.2); Lymphocytes Percent Auto 27.5 % (18.3-44.2); Mean Corpuscular HGB Conc 32.3 g/dl (32-36); Mean Corpuscular Hemoglobin 30.4 pg (26-34); Mean Corpuscular Volume 94.2 fl (80-100); Mean Platelet Volume 10.7 fl (7.4-10.4); Monocytes Absolute Auto 0.2 K/mm3 (0.1-0.6); Monocytes Percent Auto 6.5 % (2.6-8.5); Neutrophils Absolute Auto 1.9 K/mm3 (1.3-6.7); Neutrophils Percent Auto 60.4 % (45.5-73.1); Platelet Count Result 75 k/mm3 (150-375); Red Blood Count 3.45 M/mm3 (4.6-6.20); Red Cell Distribution Width 19.1 % (11.5-14.5); White Blood Count 3.1 K/mm3 (4.5-10.0)
[2024-08-20 04:07] LABS: Lactic Acid Reflex 1.1 mmol/L (0.7-2.0)
[2024-08-20 04:08] LABS: Ethanol < 10 mg/dL (<10)
[2024-08-20 04:11] LABS: Alanine Aminotransferase 34 U/L (6-50); Albumin Level 4.1 g/dL (3.5-5.1); Alkaline Phosphatase 64 U/L (38-126); Anion Gap 13 mmol/L (4-12); Aspartate Amino Transferase 31 U/L (17-59); Bilirubin,Total 0.6 mg/dL (0.2-1.3); Blood Urea Nitrogen 52 mg/dL (9-20); CRP 0.5 mg/dL (<1.0); Calcium 8.5 mg/dL (8.4-10.2); Carbon Dioxide 25 mmol/L (22-30); Chloride 103 mmol/L (98-107); Estimated CRCL calculation 9 ml/min; Estimated Glomerular Filt Rate 6; Glucose 116 mg/dL (65-110); INR 1.1; Lipase 1046 U/L (23-300); Magnesium 2.4 mg/dL (1.6-2.3); Phosphorus 5.1 mg/dL (2.5-4.5); Potassium 4.6 mmol/L (3.4-5.0); Prothrombin Time 14.4 Seconds (11.1-14.7); Sodium 141 mmol/L (137-145)
[2024-08-20 04:20] LABS: Troponin I < 0.012 ng/mL (0.000-0.034)
[2024-08-20 04:26] LABS: Platelet Estimate Decreased (Adequate)
[2024-08-20 04:27] LABS: Anisocytosis 1+
[2024-08-20 04:28] LABS: Schistocytes Rare
[2024-08-20] MEDS: VANCOMYCIN 2,000 MG/NS 500 ML 2,000 MG/500 ML BAG 250 MG IVPB (05:23)
--- NOTE | 2024-08-20 05:38 | PC.NURSE ---
Attempted to straight cath pt. No urine output obtained. Dr Hummel aware.
--- NOTE | 2024-08-20 06:15 | PC.NURSE ---
Multiple attempts by RNs, tech, and phlebotomy for lab draw. EDP put in IV ultrasound and got blood cultures and labs.
[2024-08-20 06:48] LABS: Free T4 Free Thyroxine Reflex 1.08 ng/dL (0.78-2.19)
[2024-08-20] MEDS: CEFEPIME 2 GM/NS 50 ML 2 GM/50 ML BAG IVPB (07:25)
[2024-08-20 07:31] LABS: Total Triiodothyronine (T3) 0.77 NG/ML (0.97-1.69)
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
[2024-08-20 07:44] LABS: Troponin I 0.014 ng/mL (0.000-0.034)
[2024-08-20 08:11] LABS: Ammonia < 9 umol/L (9-30)
[2024-08-20 08:25] LABS: Magnesium 2.5 mg/dL (1.6-2.3)
[2024-08-20] MEDS: hydrALAZINE HCL 20 MG/ML VIAL IV PUSH ×2 (08:33→14:04)
[2024-08-20 08:35] LABS: MRSA (PCR) NOT DETECTED (NOT DETECTE)
--- NOTE | 2024-08-20 09:30 | ADMGEN ---
This patient, Thompson Salcedo, was admitted to Medical Room 347-. Patient/family oriented to hospital policies and general routines including ID bracelet, bed and alarms, visiting hours, pain management, procedures, bathroom and other care routines, personal items, smoking policy, room service/diet, and visiting hours. Information on how to activate the Rapid Response Team has been discussed. Patient/Family are encouraged to report perceived risks to care and to ask questions if they do not understand what they are told or what they should do.
--- OUTSIDE RECORDS SUMMARY | 2024-08-20 09:42 | XMS_ITS | Clinical Summary ---
Author Organization [facility] [employer] Address [address] [place] [address] Care Team Providers Care Site Safety Coordinator Name Role Phone Josh Parham MD Primary Care Provider [phone] Care, [facility] Kidney Unavailable [phone] Josh Parham MD Unavailable [phone] Source Comments [facility],non-owned Affiliates and Associated Physician Practices is amultiple site organization consisting of ambulatory clinics and hospital sitesin [place], [place], [place] and [place]. This disclosure is being madepursuant to the Care Everywhere program and may not contain all information available regarding this patient. Last updated 18.[facility] Allergies No known active allergies Medications * Be aware that medications may not be up to date on this document. Alwaysverify current medications with the patient. Medication Sig Dispensed Refills Start Date End Date Status Tivicay 50 MG tabletIndications:AID S (acquired immune deficiency syndrome) (HCC) TAKE 1 TABLET(50 MG) BY MOUTH TWICE DAILY 60 tablet 3 Active calcitriol (Rocaltrol) 0.5 MCG capsule Take 1 (one) capsule by mouth once daily 3 Active calcium acetate (Phoslo) 667 MG capsule Take 1 (one) capsule by mouth 3 times daily before meals 3 Active vitamin D3 (Cholecalciferol) 125 MCG (5000 UT) capsule Take 1 (one) capsule by mouth once daily 4 09/06/19 25 Active folic acid (Folvite) 1 MG tablet Take 1 (one) tablet by mouth once daily 4 09/06/19 25 Active losartan (Cozaar) 100 MG tablet Take 1 (one) tablet by mouth once daily 4 09/06/19 25 Active darunavir-cobicistat (Prezcobix) 800-150 MG tabletIndications:Hum an Immunodeficiency Virus Disease Take 1 (one) tablet by mouth once daily Reasons: HIV Disease 30 tablet 4 Active fostemsavir ER 12hr (Rukobia) 600 MG tabletIndications:Hum an Immunodeficiency Virus Disease Take 1 (one) tablet by mouth 2 times daily Reasons: HIV Disease 60 tablet 4 Active amLODIPine (Norvasc) 10 MG tablet Take 1 (one) tablet by mouth once daily 4 Active entecavir (Baraclude) 0.5 MG tablet Take 1 (one) tablet by mouth every 7 days 4 Active minoxidil (Loniten) 2.5 MG tablet Take 2 (two) tablets by mouth 2 times daily 4 Active ondansetron, disintegrating, (Zofran ODT) 4 MG tablet Take 1 (one) tablet by mouth every 8 hours as needed 4 Active carvedilol (Coreg) 12.5 MG tablet Take 1 (one) tablet by mouth 2 times daily 4 Active albuterol HFA (Proventil; Ventolin; Proair) 108 (90 Base) MCG/ACT inhaler Inhale 2 (two) puffs by mouth every 6 hours as needed 54 g 4 Active budesonide-formoterol (Symbicort) 160-4.5 MCG/ACT inhalerIndications:Ch ronic Obstructive Pulmonary Disease Inhale 2 (two) puffs by mouth 2 times daily Reasons: Chronic Obstructive Lung Disease 30.6 g 3 4 Active doxazosin (Cardura) 8 MG tablet Take 1 (one) tablet by mouth once daily 90 tablet 3 4 Active cloNIDine (Catapres) 0.2 MG tablet Take 1 (one) tablet by mouth 2 times daily 180 tablet 3 4 Active traZODone (Desyrel) 50 MG tabletIndications:Psy chophysiologic insomnia Take 0.5 (one-half) tablet by mouth nightly as needed for Insomnia 45 tablet 3 4 Active sertraline (Zoloft) 50 MG tablet TAKE 1 TABLET BY MOUTH EVERY DAY 100 tablet 1 4 Active albuterol (Proventil;Ventolin) (2.5 MG/3ML) 0.083% nebulizer solutionIndications:C hronic obstructive pulmonary disease, unspecified COPD type (HCC) INHALE THE CONTENTS OF 1 VIAL VIA NEBULIZER EVERY 6 HOURS NEEDED FOR WHEEZING OR FOR SHORTNESS OF BREATH 375 mL 5 5 Active triamcinolone acetonide (Kenalog) 0.1 % creamIndications:Psor iasis APPLY TO AFFECTED AREAS TWICE DAILY FOR PSORIASIS 454 g 5 5 Active sodium chloride (V-R NASAL SPRAY SALINE) 0.65 % nasal spray SPRAY 1 SPRAY INTO INTO EACH NOSTRIL NEEDED FOR DRY NOSE 44 mL 1 5 Active cyclobenzaprine (Flexeril) 5 MG tablet TAKE 1 TABLET BY MOUTH 2 TIMES DAILY NEEDED REASONS: MUSCLE SPASM 50 tablet 2 5 Active cyclobenzaprine (Flexeril) 5 MG tablet TAKE 1 TABLET BY MOUTH 2 TIMES DAILY NEEDED REASONS: MUSCLE SPASM 50 tablet 2 4 07/23/19 25 Discontinu ed(Reorder ) Active Problems Problem Noted Date Diagnosed Date History of appendicitis 03/09/2024 Assessment & Plan (03/30/2024 2:49 PM INFORMATION TECHNOLOGY AUDIT MANAGER): Status post laparoscopic appendectomy in February,. He still has some pain in the RLQ, but his abdominal examination is otherwise normal. Surgical scars appear to be healing well. Neck pain 01/25/2024 Assessment & Plan (03/30/2024 2:52 PM INFORMATION TECHNOLOGY AUDIT MANAGER): Radha reports that he has had an [...] 01/21/2024 Assessment & Plan (03/30/2024 2:50 PM INFORMATION TECHNOLOGY AUDIT MANAGER): Reports that the infection came from the [...] 10/07/2023 Assessment & Plan (03/30/2024 2:50 PM INFORMATION TECHNOLOGY AUDIT MANAGER): Continue to follow with oncologist. He is [...] state. End-stage renal disease on hemodialysis 08/29/19 24 Assessment & Plan (03/30/2024 2:48 PM INFORMATION TECHNOLOGY AUDIT MANAGER): He continues to go to hemodialysis on Mon/Wed/Fri. Temporary dialysis catheter is again noted in [...] required. Assessment & Plan (06/28/2022 4:05 PM INFORMATION TECHNOLOGY AUDIT MANAGER): Noted on CT abdomen/pelvis from 06/12/2021. He has no current evidence of having peripheral arterial disease. Smoking cessation is advised. No further work-up is required. Hypercoagulable state 06/08/2021 Assessment & Plan (06/08/2021 1:24 PM INFORMATION TECHNOLOGY AUDIT MANAGER): Patient reports being told during his recent hospitalization that his blood was thick. CBC, prothrombin time, PTT are ordered today. Need for pneumocystis prophylaxis 05/14/2020 Assessment & Plan (06/08/2021 1:19 PM INFORMATION TECHNOLOGY AUDIT MANAGER): Continue to take oral Bactrim. Assessment & Plan (05/29/2021 2:58 PM INFORMATION TECHNOLOGY AUDIT MANAGER): Continue to take Bactrim. Assessment & Plan (10/25/2020 2:34 PM CDT): CD4 count continues to be well below 200. He must continue to take Bactrim daily. New prescription is sent to his pharmacy today. Assessment & Plan (06/16/2020 3:24 PM INFORMATION TECHNOLOGY AUDIT MANAGER): CD4 count is extremely low. He must continue to take Bactrim as prescribed. Assessment & Plan (05/14/2020 3:04 PM INFORMATION TECHNOLOGY AUDIT MANAGER): Stay on Bactrim as ordered. Anxiety 01/11/2020 Assessment & Plan (01/11/2020 6:07 PM CDT): Reports that he is chronically anxious and would like to try medical marijuana to see if it would help his symptoms. Tobacco use disorder 01/11/2020 Assessment & Plan (03/30/2024 2:51 PM INFORMATION TECHNOLOGY AUDIT MANAGER): Smoking cessation has been encouraged at prior visits. Assessment & Plan (10/09/2023 3:57 PM CDT): Complete smoking cessation is advised. Assessment & Plan (06/28/2022 4:13 PM INFORMATION TECHNOLOGY AUDIT MANAGER): Complete cessation of all smoking is encouraged. I have advised him that if he is going to use marijuana, he should try to switch to edible products which are not harmful to the lungs. Assessment & Plan (06/16/2020 3:23 PM INFORMATION TECHNOLOGY AUDIT MANAGER): Patient reports today that he has not [...] counseling. Assessment & Plan (05/29/2021 2:56 PM INFORMATION TECHNOLOGY AUDIT MANAGER): Chronic condition for this patient. Not discussed at today's visit. He may take Melatonin as needed. Assessment & Plan (06/16/2020 3:20 PM INFORMATION TECHNOLOGY AUDIT MANAGER): Chronic condition for this patient. He takes no prescription medication for this condition. He may take [id number] Melatonin as needed. Overweight(278.02) 10/12/2016 Overview (03/11/2017): IMO Update 02/21/2017 Exact BMI is discussed. I encouraged him to stop smoking marijuana at a prior visit. Medical dangers of obesity are discussed. But overall, I am much more concerned that he continue to avoid smoking cigarettes. Assessment & Plan (06/28/2022 4:11 PM INFORMATION TECHNOLOGY AUDIT MANAGER): See exact BMI above. He has lost weight recently. He should focus on maintaining a healthy diet to avoid malnutrition. Assessment & Plan (06/08/2021 1:21 PM INFORMATION TECHNOLOGY AUDIT MANAGER): See exact BMI above. He has gained weight recently, and due to recent long hospitalization, I have encouraged him to continue to try to eat well and avoid malnutrition. Assessment & Plan (05/29/2021 2:54 PM INFORMATION TECHNOLOGY AUDIT MANAGER): Recent weight loss of 10 pounds is [...] time. Assessment & Plan (06/16/2020 3:17 PM INFORMATION TECHNOLOGY AUDIT MANAGER): Exact BMI is discussed. He remains slightly [...] saw urologist, Dr. Salas, and was given [employer]. No current complaints of urinary outlet syndrome. Assessment & Plan (05/29/2021 2:55 PM INFORMATION TECHNOLOGY AUDIT MANAGER): Noted on recent renal ultrasound. Reports that he recently saw urologist, Dr. Salas, and was given [employer]. No current complaints of urinary outlet syndrome. Assessment & Plan (06/16/2020 3:19 PM INFORMATION TECHNOLOGY AUDIT MANAGER): Noted on renal ultrasound done in July,. Reports that he saw urologist, Dr. Salas, in past and was given [employer]. No current complaints of urinary outlet symptoms. Assessment & Plan (01/11/2020 6:00 PM CDT): Noted on a prior renal ultrasound. He has seen urologist, Dr. Salas, in past and was given its [facility], per his report. No current complaints of urinary outlet syndrome. Poor dentition 08/05/2016 Overview (12/10/2016): He knows that he should see a dentist and have multiple teeth pulled. He cannot afford to see a dentist at this time. Daily flossing has been advised at prior visits as he also has evidence of gingivitis. Assessment & Plan (06/28/2022 4:13 PM INFORMATION TECHNOLOGY AUDIT MANAGER): He knows that he should see a dentist and have multiple teeth pulled. He cannot afford to see a dentist at this time. Daily flossing has been advised at prior visits as he also has evidence of gingivitis. Assessment & Plan (05/29/2021 2:54 PM INFORMATION TECHNOLOGY AUDIT MANAGER): He knows that he should see a dentist and have multiple teeth pulled. Assessment & Plan (06/16/2020 3:16 PM INFORMATION TECHNOLOGY AUDIT MANAGER): He knows that he should see a [...] however. Assessment & Plan (06/28/2022 4:17 PM INFORMATION TECHNOLOGY AUDIT MANAGER): He must never receive another TB skin test. Assessment & Plan (05/29/2021 2:52 PM INFORMATION TECHNOLOGY AUDIT MANAGER): He must never receive another TB skin test. Assessment & Plan (03/03/2021 3:59 PM CDT): He must never receive another TB skin test. He has no signs of active TB presently such as cough, hemoptysis or unintentional weight loss. If he ever has a question of active TB in the future, he would require a chest x-ray. Assessment & Plan (06/16/2020 3:16 PM INFORMATION TECHNOLOGY AUDIT MANAGER): He must never receive another TB skin [...] normal. Assessment & Plan (06/28/2022 4:10 PM INFORMATION TECHNOLOGY AUDIT MANAGER): Most recent lipid panel from 06/06/21 showed elevated LDL of 145. He is currently on no medication to lower his cholesterol level. Repeat fasting lipid panel is ordered today. Assessment & Plan (06/08/2021 1:21 PM INFORMATION TECHNOLOGY AUDIT MANAGER): Noted on prior blood work. Most recent lipid panel done on 06/14/20 showed normal fractions. Repeat fasting lipid panel is ordered today. Assessment & Plan (05/29/2021 2:50 PM INFORMATION TECHNOLOGY AUDIT MANAGER): Most recent lipid panel done on 06/14/20 showed normal fractions. Assessment & Plan (06/16/2020 3:12 PM INFORMATION TECHNOLOGY AUDIT MANAGER): Noted with prior blood draws. Most recent [...] negative. Assessment & Plan (05/29/2021 2:53 PM INFORMATION TECHNOLOGY AUDIT MANAGER): These were noted on his external rectal [...] negative. Assessment & Plan (06/16/2020 3:14 PM INFORMATION TECHNOLOGY AUDIT MANAGER): These were noted on his external rectal [...] 09/10/2017 Assessment & Plan (06/28/2022 4:07 PM INFORMATION TECHNOLOGY AUDIT MANAGER): Most recent serum creatinine I can see [...] foot. Assessment & Plan (06/08/2021 1:18 PM INFORMATION TECHNOLOGY AUDIT MANAGER): Most recent serum creatinine was 1.46 with [...] today. Assessment & Plan (05/29/2021 2:51 PM INFORMATION TECHNOLOGY AUDIT MANAGER): Most recent serum creatinine was 1.46 with estimated GFR of 59. He certainly had kidney function blood work drawn during recent hospitalization. Assessment & Plan (03/03/2021 4:01 PM CDT): Repeat BMP was ordered after results of renal function panel from October, were known. He never got the blood work drawn. I have urged him to go to [facility] once to get the testing [...] NSAIDs. Assessment & Plan (06/16/2020 3:06 PM INFORMATION TECHNOLOGY AUDIT MANAGER): Most recent serum creatinine from 05/14/20 was [...] deteriorated, he will require referral to a summer child caregiver. He already knows to push po intake [...] Aleve. 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 Dione JESUS CXR: 04..16 Assessment & Plan (01/11/2020 6:06 PM CDT): [...] September. Assessment & Plan (06/08/2021 1:28 PM INFORMATION TECHNOLOGY AUDIT MANAGER): Patient has desired no treatment during past [...] visit. Assessment & Plan (06/16/2020 3:10 PM INFORMATION TECHNOLOGY AUDIT MANAGER): Patient has desired no treatment at prior [...] 09/02/2012 Assessment & Plan (03/30/2024 2:49 PM INFORMATION TECHNOLOGY AUDIT MANAGER): BP is presently well-controlled. Assessment & Plan (10/09/2023 4:08 PM CDT): BP is very poorly controlled presently. Increase dosage of Clonidine from twice daily to three times daily. Continue to take Carvedilol, Doxazosin, Hydralazine, Imdur and Losartan. He will see his summer child caregiver next week to discuss further changes in his blood pressure medications. I have asked him or Radha to e-mail me through My Chart in 1 week with some home blood pressure readings. Assessment & Plan (06/28/2022 4:08 PM INFORMATION TECHNOLOGY AUDIT MANAGER): Continue to take Norvasc. BP was marginally controlled at today's visit. Assessment & Plan (06/08/2021 1:19 PM INFORMATION TECHNOLOGY AUDIT MANAGER): Continue to take Norvasc. BP was well-controlled today. Assessment & Plan (05/29/2021 2:59 PM INFORMATION TECHNOLOGY AUDIT MANAGER): Continue to take Norvasc. He reports that [...] applauded. Assessment & Plan (06/16/2020 3:24 PM INFORMATION TECHNOLOGY AUDIT MANAGER): Very well-controlled. Continue to take Norvasc. Successful [...] visit. Assessment & Plan (03/30/2024 2:55 PM INFORMATION TECHNOLOGY AUDIT MANAGER): Continue to wear supplemental oxygen. Present oxygen [...] advised. Assessment & Plan (06/28/2022 4:08 PM INFORMATION TECHNOLOGY AUDIT MANAGER): Continue to use supplemental oxygen. Continue to use either Albuterol nebulized solution or Albuterol HFA MDI as needed. Complete smoking cessation is advised. Assessment & Plan (06/08/2021 1:18 PM INFORMATION TECHNOLOGY AUDIT MANAGER): He reported at his last visit that he was diagnosed with COPD exacerbation in addition to Covid pneumonia during his last hospitalization. His only current inhaled medication is either Albuterol HFA MDI or Albuterol nebulized solution which he uses as needed. Assessment & Plan (05/29/2021 2:49 PM INFORMATION TECHNOLOGY AUDIT MANAGER): Recent admission to hospital for COPD exacerbation. [...] list. Assessment & Plan (06/16/2020 3:22 PM INFORMATION TECHNOLOGY AUDIT MANAGER): He reports that he was diagnosed as [...] JESUS Assessment & Plan (03/30/2024 2:46 PM INFORMATION TECHNOLOGY AUDIT MANAGER): Continue taking Rukobia, Tivicay, and Prezcobix. He will continue to follow with ID physician at [place]. As long as his CD4 count is above 200, he will not require prophylactic medication for PCP pneumonia. Assessment & Plan (10/09/2023 3:51 PM CDT): He should be taking Rukobia, Tivicay and Prezcobix. But he needs a prescription for Prezcobix, which is sent to his pharmacy today. He will see ID physician at [place] later this month, and he will take over writing these prescriptions. Results of recent HIV viral load and CD4 count from August, are noted. He still requires taking Bactrim to prevent PCP infection due to low CD4 count. Assessment & Plan (06/28/2022 4:04 PM INFORMATION TECHNOLOGY AUDIT MANAGER): He is presently taking Rukobia, Tivicay and Prezcobix. But it is not clear when he has seen the infectious disease specialist at [place] last. I have recently been refilling his HIV medications. Due to the resistance pattern, I want him to be following with ID. Radha will call the ID physician at [facility] to get a quick appointment. HIV blood work is re-ordered today. Due to his low CD4 count, he must continue to take Bactrim for prophylaxis of PCP pneumonia. Assessment & Plan (06/08/2021 1:13 PM INFORMATION TECHNOLOGY AUDIT MANAGER): Due to previous resistance to Genvoya, he continues to take Prezcobix, BID Tivicay, and Epivir as started in April,. Most recent HIV viral load from February, showed that he has become resistant to this regimen. Referral to infectious disease specialists at [facility] has been made, but apparently, they do not accept his insurance. Referral to [facility] will be generated after the results of [...] pneumonia. Assessment & Plan (05/29/2021 2:57 PM INFORMATION TECHNOLOGY AUDIT MANAGER): Due to resistance to Genvoya, he continues on Prezcobix, BID Tivicay, and Epivir as started in April,. Repeat HIV viral load from February, showed that he has become resistant to this regimen. Urgent referral to infectious disease at [facility] is made today. I have stressed to [...] today. Assessment & Plan (06/16/2020 2:59 PM INFORMATION TECHNOLOGY AUDIT MANAGER): He has become resistant to Genvoya. Continue [...] discussed. Assessment & Plan (05/14/2020 3:01 PM INFORMATION TECHNOLOGY AUDIT MANAGER): Stay off of Genvoya to which he [...] resistance test that he needs is test #[id number] at [facility] (which is HIV-1 PhenoSense GT Plus Integrase, and this test is not loaded into our electronic medical record and cannot be ordered. So I have ordered the HIV-1 PhenoSense GT test (#[id number]) as that is the closest one to it. I will have someone from my office call to [facility] to see if they can change this [...] Patient states that he will go to [facility] this coming Wednesday, January 31, 2020, to [...] He states that he will go to [facility] immediately after today's visit to get the [...] normal. Assessment & Plan (05/29/2021 2:58 PM INFORMATION TECHNOLOGY AUDIT MANAGER): Patient has desired no treatment during past [...] needed. Assessment & Plan (03/30/2024 2:53 PM INFORMATION TECHNOLOGY AUDIT MANAGER): Patient requests that we change his triamcinolone ointment to cream. New prescription for cream is sent to pharmacy. Assessment & Plan (06/28/2022 4:14 PM INFORMATION TECHNOLOGY AUDIT MANAGER): Patient has a scaly rash at times -- not noted today. He uses Kenalog ointment as needed to treat the rash. Assessment & Plan (06/16/2020 3:21 PM INFORMATION TECHNOLOGY AUDIT MANAGER): Patient has a scaly rash at times -- not noted today. He uses Kenalog ointment as needed. Assessment & Plan (05/14/2020 3:03 PM INFORMATION TECHNOLOGY AUDIT MANAGER): Patient has scaly rash at times. Prescription [...] regimen. Referral to infectious disease specialists at [facility] has been made, but apparently, they do [...] 10/09/2023 Assessment & Plan (06/28/2022 4:11 PM INFORMATION TECHNOLOGY AUDIT MANAGER): And swelling over the dorsum of the [...] 06/28/2022 Assessment & Plan (06/28/2022 4:18 PM INFORMATION TECHNOLOGY AUDIT MANAGER): Consider ordering a screening lung CT scan in the future if his medical problems stabilize. Smoking cessation is advised. Need for vaccination 06/28/2022 024 Assessment & Plan (06/28/2022 4:19 PM INFORMATION TECHNOLOGY AUDIT MANAGER): Covid booster shot is given today. Need for vaccination against Streptococcus pneumoniae 06/28/2022 10/09/2023 Assessment & Plan (06/28/2022 4:15 PM INFORMATION TECHNOLOGY AUDIT MANAGER): PCV20 vaccination is given today. Peripheral edema 06/08/2021 10/09/2023 Assessment & Plan (06/28/2022 4:12 PM INFORMATION TECHNOLOGY AUDIT MANAGER): Continue to take Lasix. Continue to follow a low-salt diet. CMP is ordered today. Assessment & Plan (06/08/2021 1:23 PM INFORMATION TECHNOLOGY AUDIT MANAGER): Now on Lasix as started by hospital [...] 06/24/2022 Assessment & Plan (06/08/2021 1:29 PM INFORMATION TECHNOLOGY AUDIT MANAGER): It does not appear infected, but it has remained open now for some weeks. I have advised him to apply aloe vera gel to the wound to promote healing. Repeat examination of the wound at a future visit. Pneumonia due to COVID-19 virus 05/29/2021 06/24/2022 Assessment & Plan (06/08/2021 1:25 PM INFORMATION TECHNOLOGY AUDIT MANAGER): Recent long hospitalization at [facility] in [place], [place]. I have no records from said hospitalization. He continues to use home oxygen. He appears mildly dyspneic at rest, though his lung examination is presently normal. Pulse oximetry on portable oxygen was acceptable today. Consider referral to reference investigator at a future visit. Home health referral [...] safely. Assessment & Plan (05/29/2021 2:48 PM INFORMATION TECHNOLOGY AUDIT MANAGER): Recent long hospitalization at [facility] in [place], [place]. He is now on nasal cannula [...] 10/09/2023 Assessment & Plan (06/28/2022 4:17 PM INFORMATION TECHNOLOGY AUDIT MANAGER): Patient elects to defer any screening for [...] 10/09/2023 Assessment & Plan (06/28/2022 4:14 PM INFORMATION TECHNOLOGY AUDIT MANAGER): PSA blood test is ordered today. Assessment [...] 10/09/2023 Assessment & Plan (06/28/2022 4:16 PM INFORMATION TECHNOLOGY AUDIT MANAGER): CMP is ordered today. Assessment & Plan (06/08/2021 1:29 PM INFORMATION TECHNOLOGY AUDIT MANAGER): CMP is ordered today. Assessment & Plan (08/14/2020 2:17 PM CDT): CMP is ordered today. Assessment & Plan (06/16/2020 3:25 PM INFORMATION TECHNOLOGY AUDIT MANAGER): CMP is ordered today. Assessment & Plan (05/14/2020 3:04 PM INFORMATION TECHNOLOGY AUDIT MANAGER): CMP is ordered today. Assessment & Plan (01/11/2020 6:09 PM CDT): CMP is ordered today. Screening examination for ST D (sexually transmitted disease) 01/11/2020 10/09/2023 Assessment & Plan (06/28/2022 4:15 PM INFORMATION TECHNOLOGY AUDIT MANAGER): RPR and urine for GC/Chlamydia are ordered [...] Type Department Care Team Description 07/24/2024 Refill [facility] Internal Medicine [address] [place] [address] [address] [place] [address] Josh Parham MD Refill Request 07/22/2024 Refill [facility] Internal Medicine [address] [place] [address] [address] [place] [phone] Josh Parham MD MEDICATION REFILL 07/17/2024 Refill [facility] Internal Medicine [address] [place] [id number] Josh Parham MD Refill Request 07/07/2024 Refill [facility] Internal Medicine [address] [place] [phone] Josh Parham MD Refill Request from Last [...] Sex Assigned at Male 07/03/2021 7:30 AM INFORMATION TECHNOLOGY AUDIT MANAGER Gender Identity Male 07/03/2021 7:30 AM INFORMATION TECHNOLOGY AUDIT MANAGER Sexual Orientation Not on file Last Filed Vital Signs Vital Sign Reading Time Taken Comments Blood Pressure 90/50 03/30/2024 1:24 PM INFORMATION TECHNOLOGY AUDIT MANAGER Pulse 64 03/30/2024 1:24 PM INFORMATION TECHNOLOGY AUDIT MANAGER Temperature 36.1 C (97 F) 03/30/2024 1:24 PM INFORMATION TECHNOLOGY AUDIT MANAGER Respiratory Rate 18 03/30/2024 1:24 PM INFORMATION TECHNOLOGY AUDIT MANAGER Oxygen Saturation 88% 03/30/2024 2:01 PM INFORMATION TECHNOLOGY AUDIT MANAGER Inhaled Oxygen Concentration - - Weight 89.4 kg (197 lb) 03/30/2024 1:24 PM INFORMATION TECHNOLOGY AUDIT MANAGER Height 188 cm (6' 2 ) 03/30/2024 1:24 PM INFORMATION TECHNOLOGY AUDIT MANAGER Body Mass Index 25.29 03/30/2024 1:24 PM INFORMATION TECHNOLOGY AUDIT MANAGER Plan of Treatment Upcoming Encounters Date Type Department Care Team (Late st Contact Info) Description 10/03/2024 1:30 PM CDT Office Visit [facility] - Internal Medicine [address] [place] [address] Josh Parham MD [address] [place] [address] [address] [place] [address] Health Maintenance Due Date Last [...] COMPREHENSIVE METABOLIC PANEL Routine 06/24/2022 12:29 PM INFORMATION TECHNOLOGY AUDIT MANAGER Stage 3a chronic kidney disease Medication monitoring encounter LIPID PROFILE Routine 06/24/2022 12:29 PM INFORMATION TECHNOLOGY AUDIT MANAGER Hypercholesterolem ia PROSTATE SPECIFIC ANTIGEN SCREEN Routine 06/24/2022 12:29 PM INFORMATION TECHNOLOGY AUDIT MANAGER Screening for prostate cancer HEPATITIS C ANTIBODY Routine 06/19/2014 3:32 PM INFORMATION TECHNOLOGY AUDIT MANAGER History of hepatitis C from Last 3 Months or Most Recently Relevant to Health Maintenance Results * (ABNORMAL) COMPREHENSIVE METABOLIC PANEL (06/24/2022 12:29 PM INFORMATION TECHNOLOGY AUDIT MANAGER) Glucose 83 70 - 105 mg/dL [facility] [...] BLOOD SPECIMEN / Unknown 06/24/2022 12:29 PM INFORMATION TECHNOLOGY AUDIT MANAGER 06/24/2022 Narrative Resulting Agency Comment Lab Testing performed at: [address] [phone] Josh Parham MD LAB - CHEMISTRY BLANK WEBB Performing Organization Address City/[facility] Co de Phone Number [facility] INSURANCE BILL [address] [place] [address] * PROSTATE SPECIFIC ANTIGEN SCREEN (06/24/2022 12:29 PM INFORMATION TECHNOLOGY AUDIT MANAGER) PSA 3.11 0.00 - 4.00 ng/mL [facility] INSURANCE BILL Comment: PSA values will vary depending on testing procedure used. R esults are not comparable across different methods. PSA values obtained by FASTING Blood BLOOD SPECIMEN / Unknown 06/24/2022 12:29 PM INFORMATION TECHNOLOGY AUDIT MANAGER 06/24/2022 Narrative Resulting Agency Comment Lab Testing performed at: [address] [phone] Josh Parham MD LAB - CHEMISTRY BLANK WEBB [facility] INSURANCE BILL [address] [place] [address] * LIPID PROFILE (06/24/2022 12:29 PM INFORMATION TECHNOLOGY AUDIT MANAGER) Cholesterol 199 <200 mg/dL [facility] INSURANCE BILL Triglycerides 80 <150 mg/dL [facility] INSURANCE BILL HDL Cholesterol 54 >40 mg/dL [facility] INSURANCE BILL VLDL Calculated 16 <=30 mg/dL [facility] INSURANCE BILL LDL Calculated 129 <130 mg/dL [facility] INSURANCE BILL Comment:FASTING Blood BLOOD SPECIMEN / Unknown 06/24/2022 12:29 PM INFORMATION TECHNOLOGY AUDIT MANAGER 06/24/2022 Narrative Resulting Agency Comment Lab Testing performed at: [facility] [address] [place] [phone] Josh Parham MD LAB - CHEMISTRY BLANK WEBB Performing Organization Address [facility] de Phone Number [facility] INSURANCE BILL [address] [place] [address] * (ABNORMAL) HEPATITIS C ANTIBODY (06/19/2014 3:32 PM INFORMATION TECHNOLOGY AUDIT MANAGER) Hepatitis C Antibody 3.7(H) 0.0 - 0.9 s/co ratio [facility] INSURANCE BILL Comment: . Negative: < 0.8 Indeterminate: 0.8 - 0.9 Positive: > 0.9 . In order to reduce the incidence of a false positive result, the CDC recommends that all s/co ratios between 1.0 and 10.9 be confirmed by a more specific supplemental or PCR testing. [facility] Ab w/Reflex to Verification test #[id number]. Blood specimen (specimen) BLOOD SPECIMEN / Unknown 06/19/2014 3:32 PM INFORMATION TECHNOLOGY AUDIT MANAGER 06/19/2014 6:01 PM INFORMATION TECHNOLOGY AUDIT MANAGER Narrative Resulting Agency Comment [facility] [address] [facility] [phone] Josh Parham MD LAB - CHEMISTRY BLANK WEBB Performing Organization Address City/[facility] Co de Phone Number [facility] INSURANCE BILL from Last 3 Months or Most Recently Relevant to Health Maintenance Care Teams Site Safety Coordinator Relationship Specialty Start Date End Date Josh Parham MD PCP - General Internal Medicine 05/27/11 Josh Parham MD [address] [address] PCP - [facility] 03/24/24 Care, [facility] Kidney Care Management 12/23/22
--- OUTSIDE RECORDS SUMMARY | 2024-08-20 09:42 | XMS_ITS | Encounter Summary ---
Author Organization [facility] Health Address [address] [place] [address] Care Team Providers Care Range Aide Name Role Phone Josh Parham MD Primary Care Provider Josh Parham MD Unavailable [phone] Josh Parham MD Unavailable [phone] Josh Parham MD Unavailable [phone] Care, [facility] Unavailable [phone] Josh Parham MD Unavailable [phone] Cami Aguilar RN Unavailable [phone] Charu Carter CLINICAL SPECIALIST-DINING SERVICE INSPECTOR Unavailable Josh Parham MD Unavailable [phone] Encounter Details Date Type Department Care Team (Late st Contact Info) Description 06/30/2016 [facility] [address] [place] [address] [place] [address] [facility] [address] [place] [id number] Social History Tobacco Use Types Packs/Day Years Used Date Smoking Tobacco: Every Day Cigarettes 1 31 Started: 07/23/1983; Last attempted to quit: 07/22/2014 Smokeless Tobacco: Never Alcohol Use Standard Drinks/Week Comments Yes 0 (1 standard drink = 0.6 oz pur e alcohol) Sex and Gender Information Value Date Recorded Sex Assigned at Male 07/03/2021 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 ROUGHER HELPER Gender Identity Male 07/03/2021 7:30 AM ROUGHER HELPER Sexual Orientation Not on file documented as of this encounter Plan of Treatment Upcoming Encounters Date Type Department Care Team (Late st Contact Info) Description 10/03/2024 1:30 PM CDT Office Visit [facility] - Internal Medicine [address] [place] [address] [place] [address] [place] [address] documented as of this encounter Visit Diagnoses Not on filedocumented in this encounter Care Teams Range Aide Relationship Specialty Start Date End Date Josh Parham MD PCP - General Internal Medicine 05/27/11 Josh Parham MD [address] [address] PCP - Attributed-[facility]SP 11/29/16 06/12/21 Josh Parham MD [address] [address] PCP - Attributed-[place] 09/21/22 12/08/22 Josh Parham MD [address] [address] PCP - Attributed-[facility] [place] 10/22/22 Jsoh Parham MD [address] [address] PCP - [facility] 01/22/23 11/21/23 Charu Carter, CLINICAL SPECIALIST-DINING SERVICE INSPECTOR [address] [place] [phone] PCP - [facility] 11/22/23 03/23/24 Josh Parham MD [address] [address] PCP - [facility] 03/24/24 Care, [facility] Kidney Care Management 12/23/22 Cami Aguilar RN Real Estate AssociateMelt Helper 09/03/23 09/07/23 documented as of this encounter
--- OUTSIDE RECORDS SUMMARY | 2024-08-20 09:43 | XMS_ITS | Referral Summary ---
Author Organization [facility] [place] [address] Address [address] [place] [address] Care Team Providers Care Dockworker Name Role Phone Matteo Brooks MD Unavailable [phone] Gerson Keith MD Unavailable Cassie Márquez MD Unavailable Beatriz TO MD, Seth Vasquez Unavailable Beatriz TO MD, Seth Vasquez Unavailable David Gorman MD Unavailable [phone] Blayne Sepulveda MD Unavailable [phone] Gerson Forrester DO Unavailable [phone] Idris Sanchez MD Primary Care Provi simba Encounters Date Type Department Care Team Description 08/17/2024 1:47 PM CDT - 08/17/2024 11:59 PM CDT Hospital Encounter [facility] [address] [place] [address] Squamous cell carcinoma of anal margin Discharge Disposition: Discharge to home or self care 08/15/2024 3:30 PM CDT Office Visit [facility] Medical Group Primary Care at [address] [place] [address] Idris Sanchez MD Essential (primary) hypertension (Primary Dx); ESRD (end stage renal disease) on dialysis (HCC); Chronic hepatitis B (HCC); Chronic hepatitis C without hepatic coma (HCC); Muscle spasms of neck; Neck pain; Pulmonary emphysema, unspecified emphysema type (HCC) 08/02/2024 Telephone [facility] Dialysis Access Center at [facility] [address] [place] [address] Jaskaran Aguirre MD Clearances Prior to AVF vs AVG Creation 08/01/2024 Results Follow-Up [facility] Medical Group Convenient Care at [address] [phone] Laina Yancey PA 08/01/2024 9:45 AM CDT Ancillary Procedure [facility] Group Imaging at [address] [phone] Elevated blood pressure reading in office with diagnosis of hypertension; COPD with acute exacerbation (HCC) 07/29/2024 Results Follow-Up [facility] Convenient Care at [address] [phone] Merrick Aguirre NP 07/28/2024 6:01 PM [facility] - 07/28/2024 11:59 PM [facility] Hospital Encounter [address] [address] Elevated blood pressure reading in office with diagnosis of hypertension Discharge Disposition: Discharge to home or self care 07/28/2024 5:15 PM [facility] Office Visit [facility] Medical [facility] Convenient Care at [address] [phone] Merrick Aguirre NP COPD with acute exacerbation (HCC) (Primary Dx); Elevated blood pressure reading in office with diagnosis of hypertension 07/26/2024 Telephone [facility] Nephrology at [address] [place] [address] Gerson Keith MD 07/21/2024 Telephone [facility] Gastroenterology at [address] [place] [phone] Gerson Keith MD 07/03/2024 Social Work [facility] [address] [place] [phone] Chaitanyacory MartinaMAGDALENA 07/03/2024 Orders Only [facility] Dialysis Access Center at [address] [place] [address] Domi King NP ESRD (end stage renal disease) on dialysis (HCC) (Primary Dx); Essential (primary) hypertension; Abnormal EKG 07/03/2024 Orders Only [facility] Dialysis Access Center at [address] [place] [address] Jaskaran Aguirre MD Pre-operative exam (Primary Dx); End stage renal disease (HCC) 06/27/2024 3:37 PM [facility] - 06/27/2024 11:59 PM [facility] Hospital Encounter [address] [address] Currently asymptomatic HIV infection, with history of HIV-related illness (HCC) Discharge Disposition: Discharge to home or self care 06/27/2024 Telephone [facility] Infectious Diseases [address] [place] [phone] Issac Norris danilo Comirnaty vaccine administered 06/27/2024 3:40 PM [facility] Lab [facility] Infectious Diseases [address] [place] [phone] 06/27/2024 3:00 PM [facility] Office Visit [facility] Infectious Diseases [address] [place] [phone] Bhavesh Salazar MD Currently asymptomatic HIV infection, with history of HIV-related illness (HCC) (Primary Dx); Chronic hepatitis B (HCC); Healthcare maintenance 06/02/2024 Orders Only [facility] Infectious Diseases [address] [place] [address] [address] [place] [phone] Bhavesh Salazar MD from Last 3 Months [...] 07/11/2024 Assessment & Plan (07/17/2024 8:36 AM [facility]): 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 [...] saw urologist, Dr. Salas, and was given DxContinuum. No current complaints of urinary outlet syndrome. Last Assessment & Plan: Noted on recent renal ultrasound. Reports that he recently saw urologist, Dr. Salas, and was given clean [employer]. No current complaints of urinary outlet syndrome. [...] screening Assessment & Plan (07/28/2021 1:03 PM [facility]): He has a history of chronic hep [...] Imdur and Losartan. He will see his dye feeder next week to discuss further changes in [...] controlled. He follows with Dr. Parham and dye feeder. No changes in medications today. Note that [...] regimen. Referral to infectious disease specialists at [facility] has been made, but apparently, they [...] regimen. 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 Full details of background history on prior notes (see my note from 11/02/2023. 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 Details of history on HPI. 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 Details of history on HPI. 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 Recommended resource: https://www.hiv-druginteractions.org/credit rating checker Assessment & Plan (10/17/2021 11:24 AM [...] BID + Prezcobix - [facility] bactrim for PJP prophylaxis [...] BID + Prezcobix - Discussed adherence at [facility] - Cont bactrim for PJP prophylaxis - RTC in 4 weeks for close follow up - Discussed partner getting on PrEP; HIV test for partner today Assessment & Plan (07/28/2021 1:01 PM [facility]): Mr. Salcedo is a 66 year old [...] AM CDT): Receives HD MWF at [facility] in [facility], currently via RIJ tunneled catheter but [...] Assessment & Plan: Recent long hospitalization at [facility] in [place], [place]. I have no records from said hospitalization. He continues to use home oxygen. He appears mildly dyspneic at rest, though his lung examination is presently normal. Pulse oximetry on portable oxygen was acceptable today. Consider referral to architectural draftsman at a future visit. Home health referral [...] required. Assessment & Plan (07/28/2021 1:02 PM [facility]): Unclear if chronic or cleared infection. Will check HCV today. AIDS (acquired immune deficiency syndrome) 04/09/2009 07/11/2024 Overview (05/18/2024): 04/25/2019 OV, Dr. Parham Immunizations Immunization Administration Dates Next Due COVID-19 mRNA ([employer]) 0.3 m L (30 mcg) vaccine (12 years and up) 06/27/2024,02/16/2023 Hep B, Unspecified 11/27/2011,10/28/2011, 012 Influenza, Quad, Adjuvantate d, Intramuscular 05/23/2022,03/03/2021,02/19/2020 Influenza, Quadrivalent, Hig h Dose, Preservative Free, Intrr 02/16/2023 Influenza, Quadrivalent, Rec ombinant, Egg Free, Preservative Free, Intramuscular 04/25/2019,06/16/2018 Influenza, Quadrivalent, Spl it, Intramuscular 01/28/2017 Influenza, Quadrivalent, Spl it, Preservative Free, Intramuscular 01/28/2017,06/23/2016,06/19/2014 Influenza, Unspecified 02/23/2024,2022,02/19/2020,02/11 Meningococcal MCV4P (Menactra) 10/14/2018,2018 [employer] SARS-CoV-2 Monovalent Vaccination (12+ Yrs) PURPLE 07/07/2021 [employer] Sars-Cov-2 Bivalent V accination (12+ YRS) 02/16/2023,06/24/2022 [...] drink = 0.6 oz pur e alcohol) [place] [employer] Answer Date Recorded In the past 12 months has [employer], [employer], oil, or water [employer] threatened to shut off services in your [...] attend chur ch or uatsdin services? Never 04/11/2024 Do you belong to any clubs o r organizations such as holiness groups, unions, fraternal or athletic groups, or [...] place to sleep or slept in a care home (including now)? No 08/30/2023 PHQ-9 Answer Date [...] any time in the past 12 m [facility], were you homeless or living in a care home (including now)? No 04/11/2024 Personal Safety Answer Date Recorded Have you ever been in or are you currently in a harmful physical or emotional relationship or is someone making you feel afraid or unsafe? Denies 04/07/2024 Sex and Gender Information Value Date Recorded Sex Assigned at Not on file Legal Sex Male 11:35 AM [facility] Gender Identity Not on file Sexual Orientation [...] Description 10/05/2024 7:30 AM CDT Hospital Encounter [facility] OR [address] [place] [address] Seth Henderson IV, MD [address] [place] [address] 10/05/2024 7:30 AM CDT - 10/05/2024 9:00 AM CDT Surgery [facility] Main OR [address] [place] [address] Seth Henderson IV, MD [address] [place] [address] RECTAL EXAM UNDER ANESTHESIA WITH EXCISION ANAL MASS Scheduled Procedures Name Priority Associated Diagnoses Date/Ti me HEMORRHOIDECTOMY ANAL CANCER 10/05/2024 7:30 AM CDT COLONOSCOPY ANAL CANCER 10/05/2024 7:30 AM CDT Medical Devices Implanted Type Area Data Examination Clerk Device Identifier Shelf Expiration Date Model / Serial / Lot [employer] Duraflow Embosafe 15.5fr 28cm Basic 2 Lumen Kit Catheter [id number] - [id number] Implanted:Qty: 1 on 02/01/2024 by Jose Manuel Correa MD at [facility] Catheter Right: Chest [employer] 02/20/2026 [id number] 1 / / [id number] APR Dur[employer]low Embosafe 15.5fr 28cm Basic 2 Lumen Kit Catheter [id number] - [id number] Implanted:Qty: 1 on 03/12/2023 by Jose Manuel Correa MD at [facility] Right: Chest [employer] 09/20/2025 [id number] 2020 / / [id number] APR Schon Xl 24cm Basic Set Catheter Silicone Acute Hemodialysis [id number] - [id number] Implanted:Qty: 1 on 01/27/2024 by Jose Manuel Correa MD at [facility] Right: Femoral Vein APR 07/03/2024 [id number] / / [id number] Procedures Procedure Name Priority Date/Time Associated Diagnosis Comments XR CHEST PA LATERAL 2 VIEWS Schedule GENEVIEVE, Read GENEVIEVE (Appt Today, Awaiting Results) 08/01/2024 9:41 AM CDT Elevated blood pressure reading in office with diagnosis of hypertension COPD with acute exacerbation (HCC) INFLUENZA A/B, RSV, AND COVID-19 PCR Routine 07/28/2024 6:01 PM [facility] Elevated blood pressure reading in office with diagnosis of hypertension EGFR Routine 06/27/2024 3:37 PM [facility] Currently asymptomatic HIV infection, with history of HIV-related illness (HCC) COMPREHENSIVE METABOLIC PANEL Routine 06/27/2024 3:37 PM [facility] Currently asymptomatic HIV infection, with history of HIV-related illness (HCC) T-HELPER CELLS (CD4) COUNT Routine 06/27/2024 3:37 PM [facility] Currently asymptomatic HIV infection, with history of HIV-related illness (HCC) HEPATITIS B DNA, QUANTITATIVE, PCR Routine 06/27/2024 3:37 PM [facility] Currently asymptomatic HIV infection, with history of HIV-related illness (HCC) HIV-1 RNA, QUANTITATIVE, PCR Routine 06/27/2024 3:37 PM [facility] Currently asymptomatic HIV infection, with history of HIV-related illness (HCC) CT ABDOMEN PELVIS W CONTRAST IP Routine 04/15/2024 6:22 PM [facility] TB TEST, QUANTIFERON GOLD Routine 01/21/2024 10:15 [...] Alf Rios M.D. MZ T: Report ID: [id number] Reading Location: [id number] Narrative 08/01/2024 10:02 AM CDT EXAM DESCRIPTION: [...] Alf Rios M.D. MZ T: Report ID: [id number] Reading Location: [id number] Procedure Note Alf Rios MD - 08/01/2024 [...] Alf Rios M.D. MZ T: Report ID: [id number] Reading Location: [id number] Merrick Aguirre NP IMG XR PROCEDURES Edited Result - Final * (ABNORMAL) Influenza A/B, RSV, and COVID-19 PCR Nasopharyngeal (07/28/2024 6:01 PM [facility]) Pathologist [facility] [place] COVID-19 RNA Negative Negative Influenza A RNA Negative Negative [facility] Influenza B RNA Negative Negative [facility] RSV RNA Positive(A) Negative [facility] Comment: Interpretive data: Testing performed by [facility]. This test is performed using the [employer] Xpert Xpress CoV-2/Flu/RSV plus assay. This is a multiplex, real-time reverse transcriptase PCR assay intended for the qualitative detection of nucleic acid from SARS-CoV-2, influenza A, influenza B, and respiratory syncytial virus. This assay has been cleared by the [place] Food and Drug administration. The performance characteristics have been verified by the [facility]. Results must be considered in the clinical context, and a negative result does not rule out infection. Interpretive Data last revised 2023 Nasopharyngeal 07/28/2024 6: 01 PM [facility] 07/28/2024 11:48 PM [facility] Narrative DARA - 07/29/2024 12:31 AM [facility] Is the Patient experiencing symptoms consistent with COVID?->Yes Reason for testing?->Symptomatic Known exposure to confirmed or suspected COVID-19 case?->No Merrick Agiurre NP LAB MICROBIOLOGY - GENERAL BLANK WEBB Final Result DARA [address] [place] [address] * (ABNORMAL) eGFR (06/27/2024 3:37 PM [facility]) Pathologist [facility] [place] eGFR 7(L) >=60 mL/min/1. 73 m2 Comment: [...] last reviewed 2021. Blood 06/27/2024 3:37 PM [facility] 06/27/2024 7:08 PM [facility] Bhavesh Mariano MD LAB BLOOD ORDERAB LES Final Result Performing Organization Address [facility] Co de Phone Number DARA [address] [place] [address] * (ABNORMAL) Hepatitis B (HBV) DNA PCR, quantitative Blood (06/27/2024 3:37 PM [facility]) [facility] HBV DNA Result Detected( A) [facility] Comment: The quantifiable range of this assay is 10 IU/mL to 1,000,000,000 IU/mL (1.00 log IU/mL to 9.00 log IU/mL). Testing was performed by the VY 6800 HBV Test version 2.0 ([employer] Testing performed at [facility] Current Interpretive Data was last revised on 2020. Testing performed by: [facility], [address] [place]., [address] HBV DNA IU/mL 11,600,00 0 IUnits/mL [facility] Comment:Testing performed by : [facility], [address] [place]., [address] HBV DNA log IU/mL 7.06 log IUnits/mL [facility] Comment:Testing performed by : [facility], [address] [place] [address]., [address] Blood 06/27/2024 3:37 PM [facility] 06/28/2024 10:05 AM [facility] Bhavesh Mariano MD LAB MICROBIOLOGY - GENERAL ORDERABLES Final Result Performing Organization Address [facility] Co de Phone Number DARA [address] [place] [address] [facility] * (ABNORMAL) HIV-1 RNA PCR, quantitative Blood (06/27/2024 3:37 PM [facility]) [facility] HIV-1 RNA Detected( A) [facility] Comment: The quantifiable range of this assay is 20 copies/mL to 10,000,000 copies/mL (1.30 log copies/mL to 7.00 log copies/mL). Testing was performed by the VY 6800 HIV-1 Test([employer] Testing performed at [facility] Current Interpretive Data was last revised on 2020. Testing performed by: [facility], [address] [place]., [address] HIV-1 RNA, copies/mL 92 copies/mL [facility] Comment:Testing performed by : [facility], [address] [place]., [address] HIV-1 RNA, log 1.96 log cps/mL [facility] Comment:Testing performed by : [facility], [address] [place]., [address] Blood 06/27/2024 3:37 PM [facility] 06/28/2024 10:05 AM [facility] Bhavesh Mariano MD LAB MICROBIOLOGY - GENERAL ORDERABLES Final Result [facility] [address] Department [place] [address] [facility] * (ABNORMAL) T-helper cells (CD4) count (06/27/2024 3:37 PM [facility]) [facility] WBC 3.7(L) 3.8 - 9.9 K/cumm Lymphocyte Pct 37.0 16.0 - 52.0 % [facility] Lymphocyte # 1,369 1,200 - 3,500 cells/mcL [facility] CD3 pct 76.6 60.0 - 85.0 % [facility] Comment: Interpretive Data The tests utilizing Class I analyte specific reagents (ASRs) cited in this report (if any, and unless otherwise documented) were developed and their performance characteristics determined by [facility]. They have not been cleared [...] CD3 Absolute 1,049 720 - 2,975 cells/mcL [facility] CD4 pct 10.7(L) 29.0 - 59.0 % [facility] Comment: Interpretive Data The tests utilizing Class I analyte specific reagents (ASRs) cited in this report (if any, and unless otherwise documented) were developed and their performance characteristics determined by [facility]. They have not been cleared [...] CD4 Absolute 146(L) 348 - 2,065 cells/mcL [facility] CD8 pct 65.9(H) 12.0 - 43.0 % [facility] Comment: Interpretive Data The tests utilizing Class I analyte specific reagents (ASRs) cited in this report (if any, and unless otherwise documented) were developed and their performance characteristics determined by [facility]. They have not been cleared [...] CD8 Absolute 902 144 - 1,505 cells/mcL [facility] CD19 pct 7.5 7.0 - 23.0 % [facility] Comment: Interpretive Data The tests utilizing Class I analyte specific reagents (ASRs) cited in this report (if any, and unless otherwise documented) were developed and their performance characteristics determined by [facility]. They have not been cleared [...] CD19 Absolute 103 84 - 805 cells/mcL [facility] [id number] pct 14.1 6.0 - 29.0 % [facility] Comment: Interpretive Data The tests utilizing Class I analyte specific reagents (ASRs) cited in this report (if any, and unless otherwise documented) were developed and their performance characteristics determined by [facility]. They have not been cleared or approved [...] Interpretive Data was last revised on 2013 [id number] Absolute 193 72 - 1,015 cells/mcL [facility] CD4/CD8 ratio 0.2(L) 0.7 - 3.5 [facility] Blood 06/27/2024 3:37 PM [facility] 06/27/2024 6:40 PM [facility] Bhavesh Mariano MD LAB BLOOD ORDERAB LES Final Result [facility] [address] Department [place] [address] * (ABNORMAL) Comprehensive metabolic panel (06/27/2024 3:37 PM [facility]) Sodium 135 135 - 145 mmol/L Potassium, pl 4.7 3.3 - 4.9 mmol/L [facility] Chloride 94(L) 97 - 110 mmol/L [facility] CO2 24 22 - 32 mmol/L [facility] Anion gap 17(H) 2 - 15 mmol/L [facility] BUN 31(H) 6 - 25 mg/dL [facility] Creatinine 8.04(H) 0.80 - 1.30 mg/dL [facility] Glucose 102 70 - 199 mg/dL [facility] Comment: Interpretive Data Fasting glucose >/= [...] [facility] Albumin 4.3 3.5 - 5.0 g/dL [facility] Alk phos 60 40 - 130 Units/L [facility] ALT 32 7 - 55 Units/L [facility] AST 33 10 - 50 Units/L [facility] Blood 06/27/2024 3:37 PM [facility] 06/27/2024 6:42 PM [facility] us Bhavesh Mariano MD LAB BLOOD ORDERAB LES Final Result [facility] [address] Department [place] [address] * CT Abdomen Pelvis W Contrast (04/15/2024 6:22 PM [facility]) Anatomical Region Laterality Modality Body N/A Computed Tomogra phy 04/15/2024 8:50 PM [facility] Narrative 04/15/2024 9:50 PM [facility] EXAM DESCRIPTION: CT ABDOMEN PELVIS W CONTRAST [...] Driss Meza M.D. AR: PATRICK Report ID: [id number] Reading Location: [place] [address] Procedure Note Driss Meza MD - 04/15/2024 [...] Driss Meza M.D. AR: PATRICK Report ID: [id number] Reading Location: [place] [address] Isidro Daigle MD IM CT PROCEDURES Final Resu lt * TB test, quantiferon gold (01/21/2024 10:15 AM CDT) [facility] Quantiferon TB Gold Negative Negative [facility] Comment: No interferon-gamma response to [...] Interferon-gamma level <0.35 IU/mL. TB-Nil 0.00 IUnits/mL [facility] TB2-Nil 0.01 IUnits/mL [facility] Mitogen-Nil >10.00 IUnits/mL [facility] NIL 0.02 IUnits/mL [facility] Comment: Test Performed by: [facility] [address] [place] [address] Operations Support Professionals: Henry Radford Ph.D.; CLIA# [id number] Blood 01/21/2024 10:1 5 AM CDT 01/21/2024 10:35 AM CDT us Negrito Amaya MD LAB BLOOD ORDERABLES Trina l Result DARA [address] [place] [address] Department [place] [address] [facility] * (ABNORMAL) Hepatitis C antibody Blood (11/02/2023 8:16 PM CDT) Pathologist [facility] [place] Hep C Ab Reactive( A) Nonreactive Comment: [...] LAB MICROBIOLOGY - GENERAL ORDERABLES Final Result [facility] [address] Department [place] [address] * Hemoglobin A1c (11/02/2023 8:03 PM CDT) Hgb A1C 4.7 4.0 - 5.6 % Estimated Average Glucose 88 mg/dL [facility] SCHWARTZ Comment: The ADA recommends reporting an estimated Average Glucose (eAG) with all Hemoglobin A1c results using the equation derived from a study of 507 normal and diabetic adults. Minority populations were underrepresented and children were not included. (Diabetes Care 31:0267-0517, 2008). The eAG is not equivalent to a fasting glucose. Blood 11/02/2023 8:03 PM CDT 11/02/2023 8:03 PM CDT us Bhavesh Mariano MD LAB BLOOD ORDERAB LES Final Result DARA SCHWARTZ [address] Department of Laboratories [place] [id number] * Lipid panel (11/02/2023 8:03 PM CDT) [...] ORDERAB LES Final Result Performing Organization Address [facility] Co de Phone Number DARA SCHWARTZ [address] [facility] [place] [id number] * (ABNORMAL) Hepatitis A antibody, total Blood (11/02/2023 7:48 PM CDT) Hep A total Reactive( A) Nonreactive Comment:Testing performed by : [facility], [address] [place]., [address] Blood 11/02/2023 7:48 PM CDT 11/03/2023 10:02 AM CDT Bhavesh Mariano MD LAB MICROBIOLOGY - GENERAL ORDERABLES Final Result Performing Organization Address [facility] Co de Phone Number ANTONIETTAELLEN SCHWARTZ [address] [facility] [place] [address] * RPR Blood (11/02/2023 7:48 PM CDT) RPR Nonreactive Nonreactive Blood 11/02/2023 7:48 PM CDT 11/03/2023 10:45 AM CDT Bhavesh Mariano MD LAB MICROBIOLOGY - GENERAL ORDERABLES Final Result Performing Organization Address [facility] Co de Phone Number ANTONIETTAELLEN [id number] [facility] [place] [address] * (ABNORMAL) Urinalysis reflex to microscopic and culture Urine (03/12/2023 1:13 AM CDT) Color, ur Yellow Yellow Clarity, ur Clear Clear [facility] Specific gravity, ur 1.009 1.003 - 1.030 [facility] pH, urine 5.0 DARA Comment: Interpretive Data U rine pH is affected by diet, medications, systemic acid-base disturbances, and renal tubular function. pH may affect urinary stone formation. For example, urine pH below 6.0 may help reduce the tendency for calcium phosphate stones and pH greater than 6.0 may reduce the tendency for uric acid stone formation. Source: [facility] Current Interpretive Data was last revised on 2017 Protein, ur ql 3+(A) Negative [facility] Glucose, ur ql Negative Negative [facility] Ketones, ur Negative Negative [facility] Bilirubin, ur Negative Negative [facility] Blood, ur 3+(A) Negative [facility] Urobilinogen, ur <2.0 <2.0 mg/dL [facility] Nitrite, ur Negative Negative [facility] Leukocyte esterase, ur 1+(A) Negative [facility] UA reflex comment Reflex to microscopic UA will be performed. [facility] Urine 03/12/2023 1:13 AM CDT 03/12/2023 1:27 AM CDT us Trey Pritchett MD LAB MICROBIOLOGY - GENERAL O RDERABLES Final Result Performing Organization Address City/State/[facility] Co de Phone Number DARA [address] [facility] Department [place] [address] from Last 3 Months or Most Recently Relevant to Health Maintenance Insurance [facility] [employer] [facility] Address: 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 06/23/2021 4:27 PM * Full Code (Latest [...] 6:40 PM 09/01/2023 5:27 PM Care Teams Dockworker Relationship Specialty Start Date End Date Idris Sanchez MD [address] [address] PCP - General Family Practice 05/18/24 Matteo Brooks MD [address] [facility], [address] [address] Medical Oncologist/Branch Service Representative Medical Oncology 03/31/23 Gerson Keith MD [address] [facility], [address] [address] Consulting Physician Nephrology 05/07/23 Cassie Márquez MD [address] [address] Consulting Physician Family Medicine 06/25/23 Seth Henderson IV, MD [address] [place] [id number] Consulting Physician General Surgery 10/21/23 Seth Henderson IV, MD [address] [place] [phone] Consulting Physician General Surgery 10/21/23 David Gorman MD [address] [place] [id number] Radiation Oncologist Radiation Oncology 10/21/23 Blayne Sepulveda MD [address] [place] [address] [phone] Consulting Physician General Surgery 03/10/24 Gerson Forrester DO [address] [place] [address] [phone] Consulting Physician General Surgery 03/14/24
--- OUTSIDE RECORDS SUMMARY | 2024-08-20 09:43 | XMS_ITS | Clinical Summary ---
Author Organization [facility] [address] Address [address] [place] [address] Care Team Providers Care Profile Grinder Technician Name Role Phone Matteo Brooks MD Unavailable [phone] Gerson Keith MD Unavailable Cassie Márquez MD Unavailable Beatriz TO MD, Seth Vasquez Unavailable Beatriz TO MD, Seth Vasquez Unavailable David Gorman MD Unavailable [phone] Blayne Sepulveda MD Unavailable Gerson Forrester DO Unavailable [phone] Idris Sanchez MD Primary Care Provi simba [...] 07/11/2024 Assessment & Plan (07/17/2024 8:36 AM TEACHER OF THE SIGHT IMPAIRED): 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 [...] saw urologist, Dr. Salas, and was given Go Vocab. No current complaints of urinary outlet syndrome. Last Assessment & Plan: Noted on recent renal ultrasound. Reports that he recently saw urologist, Dr. Salas, and was given Go Vocab. No current complaints of urinary outlet syndrome. [...] screening Assessment & Plan (07/28/2021 1:03 PM TEACHER OF THE SIGHT IMPAIRED): He has a history of chronic hep [...] Imdur and Losartan. He will see his correction worker next week to discuss further changes in [...] controlled. He follows with Dr. Parham and correction worker. No changes in medications today. Note that [...] regimen. Referral to infectious disease specialists at [facility] has been made, but apparently, [...] regimen. 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 Full details of background history on prior notes (see my note from 11/02/2023. His girlfriend Radha is assisting him brusher machine for all his healthcare needs including giving [...] for drug interactions with ART. 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 Details of history on HPI. His girlfriend Radha is assisting him brusher machine for all his healthcare needs including giving [...] for drug interactions with ART. 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 Details of history on HPI. His girlfriend Radha is assisting him brusher machine for all his healthcare needs including giving [...] for drug interactions with ART. Recommended resource: https://www.hiv-druginteractions.org/drawing checker Assessment & Plan (10/17/2021 11:24 AM [...] BID + Prezcobix - Discussed adherence at [facility] bactrim for PJP prophylaxis - RTC [...] BID + Prezcobix - Discussed adherence at [facility] bactri for PJP prophylaxis - RTC in 4 weeks for close follow up - Discussed partner getting on PrEP; HIV test for partner today Assessment & Plan (07/28/2021 1:01 PM TEACHER OF THE SIGHT IMPAIRED): Mr. Salcedo is a 66 year old [...] AM CDT): Receives HD MWF at [facility] in [facility], currently via RIJ tunneled catheter but undergoing [...] Assessment & Plan: Recent long hospitalization at [facility] in [place], [place]. I have no records from said hospitalization. He continues to use home oxygen. He appears mildly dyspneic at rest, though his lung examination is presently normal. Pulse oximetry on portable oxygen was acceptable today. Consider referral to tribal delegate at a future visit. Home health referral [...] required. Assessment & Plan (07/28/2021 1:02 PM TEACHER OF THE SIGHT IMPAIRED): Unclear if chronic or cleared infection. Will check HCV today. AIDS (acquired immune deficiency syndrome) 04/09/2009 07/11/2024 Overview (05/18/2024): 04/25/2019 OVDr. Parham Encounters Date Type Department Care Team Description 08/17/2024 1:47 PM CDT - 08/17/2024 11:59 PM CDT Hospital Encounter [facility] [address] [place] [id number] Squamous cell carcinoma of anal margin Discharge Disposition: Discharge to home or self care 08/15/2024 3:30 PM CDT Office Visit [facility] Primary Care at [address] [place] [phone] Idris Sanchez MD Essential (primary) hypertension (Primary Dx); ESRD (end stage renal disease) on dialysis (HCC); Chronic hepatitis B (HCC); Chronic hepatitis C without hepatic coma (HCC); Muscle spasms of neck; Neck pain; Pulmonary emphysema, unspecified emphysema type (HCC) 08/02/2024 Telephone [facility] at [address] [place] [address] Jaskaran Aguirre MD Clearances Prior to AVF vs AVG Creation 08/01/2024 9:45 AM CDT Ancillary Procedure [facility] Imaging at [address] [address] Elevated blood pressure reading in office with diagnosis of hypertension; COPD with acute exacerbation (HCC) 08/01/2024 Results Follow-Up [facility] at [address] [address] Laina Yancey PA 07/29/2024 Results Follow-Up [facility] at [address] [phone] Merrick Aguirre NP 07/28/2024 6:01 PM TEACHER OF THE SIGHT IMPAIRED - 07/28/2024 11:59 PM TEACHER OF THE SIGHT IMPAIRED Hospital Encounter [address] [address] Elevated blood pressure reading in office with diagnosis of hypertension Discharge Disposition: Discharge to home or self care 07/28/2024 5:15 PM TEACHER OF THE SIGHT IMPAIRED Office Visit [facility] at [address] [phone] Merrick Aguirre NP COPD with acute exacerbation (HCC) (Primary Dx); Elevated blood pressure reading in office with diagnosis of hypertension 07/26/2024 Telephone [facility] Nephrology at [address] [place] [address] Gerson Keith MD 07/21/2024 Telephone [facility] Gastroenterology at [address] [place] [address] Gerson Keith MD 07/03/2024 Social Work [facility] On[facility] [address] [place] [address] [address] [place] [phone] Martina Gil LCSW 07/03/2024 Orders Only [facility] at [address] [place] [address] Domi King NP ESRD (end stage renal disease) on dialysis (HCC) (Primary Dx); Essential (primary) hypertension; Abnormal EKG 07/03/2024 Orders Only [facility] Dialysis Access Center at [place] [address] [facility] [address] [place] [address] Jaskaran Aguirre MD Pre-operative exam (Primary Dx); End stage renal disease (HCC) 06/27/2024 3:40 PM TEACHER OF THE SIGHT IMPAIRED Lab [facility] Infectious Diseases [address] [place] [address] [address] [place] [phone] 06/27/2024 3:37 PM TEACHER OF THE SIGHT IMPAIRED - 06/27/2024 11:59 PM TEACHER OF THE SIGHT IMPAIRED Hospital Encounter [address] [phone] Currently asymptomatic HIV infection, with history of HIV-related illness (HCC) Discharge Disposition: Discharge to home or self care 06/27/2024 3:00 PM TEACHER OF THE SIGHT IMPAIRED Office Visit [facility] Infectious Diseases [address] [place] [address] [address] [place] [phone] Bhavesh Salazar MD Currently asymptomatic HIV infection, with history of HIV-related illness (HCC) (Primary Dx); Chronic hepatitis B (HCC); Healthcare maintenance 06/27/2024 Telephone [facility] Infectious Diseases [address] [place] [address] [address] [place] [phone] [facility] Comirnaty vaccine administered 06/02/2024 Orders Only [facility] Infectious Diseases [address] [facility] [address] [place] [phone] Bhavesh Salazar MD from Last 3 Months Immunizations Immunization Administration Dates Next Due COVID-19 mRNA ([employer]) 0.3 m L (30 mcg) vaccine (12 years and up) 06/27/2024,02/16/2023 Hep B, Unspecified 11/27/2011,10/28/2011, 012 Influenza, Quad, Adjuvantate d, Intramuscular 05/23/2022,03/03/2021,02/19/2020 Influenza, Quadrivalent, Hig h Dose, Preservative Free, Intrr 02/16/2023 Influenza, Quadrivalent, Rec ombinant, Egg Free, Preservative Free, Intramuscular 04/25/2019,06/16/2018 Influenza, Quadrivalent, Spl it, Intramuscular 01/28/2017 Influenza, Quadrivalent, Spl it, Preservative Free, Intramuscular 01/28/2017,06/23/2016,06/19/2014 Influenza, Unspecified 02/23/2024,2022,02/19/2020,02/11 Meningococcal MCV4P (Menactra) 10/14/2018,2018 [employer] SARS-CoV-2 Monovalent Vaccination (12+ Yrs) PURPLE 07/07/2021 [employer] Sars-Cov-2 Bivalent V accination (12+ YRS) 02/16/2023,06/24/2022 [...] stage renal failure) (HCC) [facility] right ij permacath HL (hearing loss) History of drug use [phone] co jonathan heroin, history of IV drug use, SMOKES MARIJANA NOW GERD (gastroesophageal reflux disease) Stroke (HCC) 1994 Pneumonia due to COVID-19 virus 05/29/2021 Last Assessment & Plan: Recent long hospitalization at [facility] in [place], [place]. I have no records from said hospitalization. He continues to use home oxygen. He appears mildly dyspneic at rest, though his lung examination is presently normal. Pulse oximetry on portable oxygen was acceptable today. Consider refer Hypertensive emergency 10/11/2023 AIDS (acquired immune defici ency syndrome) ([facility]) 04/09/2009 04/25/2019 OV, Dr. Parham Depression 02/08/24 Chronic bronchitis ([facility]) Family History Medical History Relation Name Comments [...] pur e alcohol) [facility] Utilities Answer Date Recorded In the past 12 months has [employer], [employer], or water [employer] threatened to shut off services in your [...] How often do you attend chur or zoroastrianism services? Never 04/11/2024 Do you belong to any clubs o r organizations such as mormon groups, unions, fraternal or athletic groups, or [...] place to sleep or slept in a skilled nursing (including now)? No 08/30/2023 PHQ-9 Answer Date [...] any time in the past 12 m [facility], were you homeless or living in a skilled nursing (including now)? No 04/11/2024 Personal Safety Answer Date Recorded Have you ever been in or are you currently in a harmful physical or emotional relationship or is someone making you feel afraid or unsafe? Denies 04/07/2024 Sex and Gender Information Value Date Recorded Sex Assigned at Not on file Legal Sex Male 11:35 AM TEACHER OF THE SIGHT IMPAIRED Gender Identity Not on file Sexual Orientation [...] AM CDT Hospital Encounter [facility] [place] [address] [place] [address] Seth Henderson IV, MD [address] [place] [address] 10/05/2024 7:30 AM CDT - 10/05/2024 9:00 AM CDT Surgery [facility] [place] [address] [place] [address] Seth Henderson IV, MD [facility] [address] [address] RECTAL EXAM UNDER ANESTHESIA WITH EXCISION ANAL [...] history exists Medical Devices Implanted Type Area Hair Assistant Device Identifier Shelf Expiration Date Model / Serial / Lot 365net Duraflow Embosafe 15.5fr 28cm Basic 2 Lumen Kit Catheter [id number] - [id number] Implanted:Qty: 1 on 02/01/2024 by Jose Manuel Correa MD at [facility] Catheter Right: [employer] 02/20/2026 [id number] 1 / / [id number] [employer] Duraflow Embosafe 15.5fr 28cm Basic 2 Lumen Kit Catheter [id number] - [id number] Implanted:Qty: 1 on 03/12/2023 by Jose Manuel Correa MD at [facility] Right: [employer] 09/20/2025 [id number] 2020 / / [id number] 365[employer] Schon Xl 24cm Basic Set Catheter Silicone Acute Hemodialysis [id number] - [id number] Implanted:Qty: 1 on 01/27/2024 by Jose Manuel Correa MD at [facility] Right: Femoral Vein [employer] 07/03/2024 [id number] / / [id number] Procedures Procedure Name Priority Date/Time Associated Diagnosis Comments XR CHEST PA LATERAL 2 VIEWS Schedule GENEVIEVE, Read GENEVIEVE (Appt Today, Awaiting Results) 08/01/2024 9:41 AM CDT Elevated blood pressure reading in office with diagnosis of hypertension COPD with acute exacerbation (HCC) INFLUENZA A/B, RSV, AND COVID-19 PCR Routine 07/28/2024 6:01 PM TEACHER OF THE SIGHT IMPAIRED Elevated blood pressure reading in office with diagnosis of hypertension EGFR Routine 06/27/2024 3:37 PM TEACHER OF THE SIGHT IMPAIRED Currently asymptomatic HIV infection, with history of HIV-related illness (HCC) COMPREHENSIVE METABOLIC PANEL Routine 06/27/2024 3:37 PM TEACHER OF THE SIGHT IMPAIRED Currently asymptomatic HIV infection, with history of HIV-related illness (HCC) T-HELPER CELLS (CD4) COUNT Routine 06/27/2024 3:37 PM TEACHER OF THE SIGHT IMPAIRED Currently asymptomatic HIV infection, with history of HIV-related illness (HCC) HEPATITIS B DNA, QUANTITATIVE, PCR Routine 06/27/2024 3:37 PM TEACHER OF THE SIGHT IMPAIRED Currently asymptomatic HIV infection, with history of HIV-related illness (HCC) HIV-1 RNA, QUANTITATIVE, PCR Routine 06/27/2024 3:37 PM TEACHER OF THE SIGHT IMPAIRED Currently asymptomatic HIV infection, with history of HIV-related illness (HCC) CT ABDOMEN PELVIS W CONTRAST IP Routine 04/15/2024 6:22 PM TEACHER OF THE SIGHT IMPAIRED TB TEST, QUANTIFERON GOLD Routine 01/21/2024 10:15 [...] signed by Alf PEREZ T: Report ID: [id number] Reading Location: [id number] Narrative 08/01/2024 10:02 AM CDT EXAM DESCRIPTION: [...] Alf Rios M.D. MZ T: Report ID: [id number] Reading Location: [id number] Procedure Note Alf Rios MD - 08/01/2024 [...] Alf Rios M.D. MZ T: Report ID: [id number] Reading Location: [id number] Merrick Aguirre NP IMG XR PROCEDURES Edited Result - Final * (ABNORMAL) Influenza A/B, RSV, and COVID-19 PCR Nasopharyngeal (07/28/2024 6:01 PM TEACHER OF THE SIGHT IMPAIRED) COVID-19 RNA Negative Negative Influenza A RNA Negative Negative [facility] Influenza B RNA Negative Negative [facility] RSV RNA Positive(A) Negative [facility] Comment: Interpretive data: Testing performed by [facility]. This test is performed using the [employer] Xpert Xpress CoV-2/Flu/RSV plus assay. This is a multiplex, real-time reverse transcriptase PCR assay intended for the qualitative detection of nucleic acid from SARS-CoV-2, influenza A, influenza B, and respiratory syncytial virus. This assay has been cleared by the [place] Food and Drug administration. The performance characteristics have been verified by the [facility]. Results must be considered in the clinical context, and a negative result does not rule out infection. Interpretive Data last revised 2023 Nasopharyngeal 07/28/2024 6: 01 PM TEACHER OF THE SIGHT IMPAIRED 07/28/2024 11:48 PM TEACHER OF THE SIGHT IMPAIRED Narrative [facility] - 07/29/2024 12:31 AM TEACHER OF THE SIGHT IMPAIRED Is the Patient experiencing symptoms consistent with COVID?->Yes Reason for testing?->Symptomatic Known exposure to confirmed or suspected COVID-19 case?->No Merrick Aguirre NP LAB MICROBIOLOGY - GENERAL BLANK WEBB Final Result [facility] [address] Department [place] [address] * (ABNORMAL) eGFR (06/27/2024 3:37 PM TEACHER OF THE SIGHT IMPAIRED) [facility] eGFR 7(L) >=60 mL/min/1. 73 m2 [...] last reviewed 2021. Blood 06/27/2024 3:37 PM TEACHER OF THE SIGHT IMPAIRED 06/27/2024 7:08 PM TEACHER OF THE SIGHT IMPAIRED Bhavesh Mariano MD LAB BLOOD ORDERAB LES Final Result Performing Organization Address [facility] de Phone Number [facility] [address] Department [place] [address] * (ABNORMAL) Hepatitis B (HBV) DNA PCR, quantitative Blood (06/27/2024 3:37 PM TEACHER OF THE SIGHT IMPAIRED) [facility] HBV DNA Result Detected( A) [facility] Comment: The quantifiable range of this assay is 10 IU/mL to 1,000,000,000 IU/mL (1.00 log IU/mL to 9.00 log IU/mL). Testing was performed by the VY 6800 HBV Test version 2.0 ([employer] Testing performed at [facility] Current Interpretive Data was last revised on 2020. Testing performed by: [facility], [address] [place] [address] HBV DNA IU/mL 11,600,00 0 IUnits/mL [facility] Comment:Testing performed by : [facility], [address] [place]., [address] HBV DNA log IU/mL 7.06 log IUnits/mL [facility] Comment:Testing performed by : [facility], [address] [place]., [address] Blood 06/27/2024 3:37 PM TEACHER OF THE SIGHT IMPAIRED 06/28/2024 10:05 AM TEACHER OF THE SIGHT IMPAIRED Bhavesh Mariano MD LAB MICROBIOLOGY - GENERAL ORDERABLES Final Result Performing Organization Address [facility]/ZIP Co de Phone Number DARA SCHWARTZ [address] Department [place] [address] [facility] * (ABNORMAL) HIV-1 RNA PCR, quantitative Blood (06/27/2024 3:37 PM TEACHER OF THE SIGHT IMPAIRED) [facility] HIV-1 RNA Detected( A) [facility] Comment: The quantifiable range of this assay is 20 copies/mL to 10,000,000 copies/mL (1.30 log copies/mL to 7.00 log copies/mL). Testing was performed by the VY 6800 HIV-1 Test([employer] Testing performed at [facility] Current Interpretive Data was last revised on 2020. Testing performed by: [facility], [address] [place] [address] HIV-1 RNA, copies/mL 92 copies/mL [facility] Comment:Testing performed by : [facility], [address] [place] [address] HIV-1 RNA, log 1.96 log cps/mL [facility] Comment:Testing performed by : [facility], [address] [place]., [address] Blood 06/27/2024 3:37 PM TEACHER OF THE SIGHT IMPAIRED 06/28/2024 10:05 AM TEACHER OF THE SIGHT IMPAIRED Bhavesh Mariano MD LAB MICROBIOLOGY - GENERAL ORDERABLES Final Result [facility]TONIETTAELL[facility] SCHWARTZ [address] Department [place] [address] [facility] * (ABNORMAL) T-helper cells (CD4) count (06/27/2024 3:37 PM TEACHER OF THE SIGHT IMPAIRED) [facility] WBC 3.7(L) 3.8 - 9.9 K/cumm Lymphocyte Pct 37.0 16.0 - 52.0 % [facility] Lymphocyte # 1,369 1,200 - 3,500 cells/mcL [facility] CD3 pct 76.6 60.0 - 85.0 % [facility] Comment: Interpretive Data The tests utilizing Class I analyte specific reagents (ASRs) cited in this report (if any, and unless otherwise documented) were developed and their performance characteristics determined by [facility]. They have not been cleared [...] CD3 Absolute 1,049 720 - 2,975 cells/mcL [facility] CD4 pct 10.7(L) 29.0 - 59.0 % [facility] Comment: Interpretive Data The tests utilizing Class I analyte specific reagents (ASRs) cited in this report (if any, and unless otherwise documented) were developed and their performance characteristics determined by [facility]. They have not been cleared [...] CD4 Absolute 146(L) 348 - 2,065 cells/mcL [facility] CD8 pct 65.9(H) 12.0 - 43.0 % [facility] Comment: Interpretive Data The tests utilizing Class I analyte specific reagents (ASRs) cited in this report (if any, and unless otherwise documented) were developed and their performance characteristics determined by [facility]. They have not been cleared or [...] CD8 Absolute 902 144 - 1,505 cells/mcL [facility] CD19 pct 7.5 7.0 - 23.0 % [facility] Comment: Interpretive Data The tests utilizing Class I analyte specific reagents (ASRs) cited in this report (if any, and unless otherwise documented) were developed and their performance characteristics determined by [facility]. They have not been cleared [...] CD19 Absolute 103 84 - 805 cells/mcL [facility] [id number] pct 14.1 6.0 - 29.0 % [facility] Comment: Interpretive Data The tests utilizing Class I analyte specific reagents (ASRs) cited in this report (if any, and unless otherwise documented) were developed and their performance characteristics determined by [facility]. They have not been cleared [...] Interpretive Data was last revised on 2013 [id number] Absolute 193 72 - 1,015 cells/mcL [facility]8 ratio 0.2(L) 0.7 - 3.5 [facility] Blood 06/27/2024 3:37 PM TEACHER OF THE SIGHT IMPAIRED 06/27/2024 6:40 PM TEACHER OF THE SIGHT IMPAIRED Bhavesh Mariano MD LAB BLOOD ORDERAB LES Final Result [facility] [address] Department [place] [address] * (ABNORMAL) Comprehensive metabolic panel (06/27/2024 3:37 PM TEACHER OF THE SIGHT IMPAIRED) Sodium 135 135 - 145 mmol/L Potassium, [...] Units/L [facility] Blood 06/27/2024 3:37 PM TEACHER OF THE SIGHT IMPAIRED 06/27/2024 6:42 PM TEACHER OF THE SIGHT IMPAIRED Bhavesh Mariano MD LAB BLOOD ORDERAB LES Final Result [facility] [address] Department [place] [address] * CT Abdomen Pelvis W Contrast (04/15/2024 6:22 PM TEACHER OF THE SIGHT IMPAIRED) Anatomical Region Laterality Modality Body N/A Computed Tomogra phy 04/15/2024 8:50 PM TEACHER OF THE SIGHT IMPAIRED Narrative 04/15/2024 9:50 PM TEACHER OF THE SIGHT IMPAIRED EXAM DESCRIPTION: CT ABDOMEN PELVIS W CONTRAST [...] Driss Meza M.D. AR: PATRICK Report ID: [id number] Reading Location: [id number] Procedure Note Driss Meza MD - 04/15/2024 [...] Driss Meza M.D. AR: PATRICK Report ID: [id number] Reading Location: [place] [address] Isidro Daigle MD IM CT PROCEDURES Final Resu lt * TB test, quantiferon gold (01/21/2024 10:15 AM CDT) [facility] Quantiferon TB Gold Negative Negative [facility] Comment: No interferon-gamma response to [...] >10.00 IUnits/mL [facility] NIL 0.02 IUnits/mL [facility] Comment: Test Performed by: [facility] [address] [place] [address] Relay Technician: Henry Radford Ph.D.; CLIA# [id number] Blood 01/21/2024 10:1 5 AM CDT 01/21/2024 10:35 AM CDT Negrito Amaya MD LAB BLOOD ORDERABLES Trina l Result Performing Organization Address City/[facility]/ZIP Co de Phone Number [facility] [address] [place] [address] Department [place] [address] [facility] * (ABNORMAL) Hepatitis C antibody Blood (11/02/2023 8:16 PM CDT) Pathologist [facility] Hep C Ab Reactive( A) Nonreactive Comment: [...] - GENERAL ORDERABLES Final Result DARA SCHWARTZ [address] Department [place] [address] * Hemoglobin A1c (11/02/2023 8:03 PM CDT) Hgb A1C 4.7 4.0 - 5.6 % Estimated Average Glucose 88 mg/dL [facility] Comment: The ADA recommends reporting an estimated Average Glucose (eAG) with all Hemoglobin A1c results using the equation derived from a study of 507 normal and diabetic adults. Minority populations were underrepresented and children were not included. (Diabetes Care 31:4570-1752, 2008). The eAG is not equivalent to a fasting glucose. Blood 11/02/2023 8:03 PM CDT 11/02/2023 8:03 PM CDT us Bhavesh Mariano MD LAB BLOOD ORDERAB LES Final Result [facility] SCHWARTZ [address] Department [place] [address] * Lipid panel (11/02/2023 8:03 PM CDT) [...] ORDERAB LES Final Result Performing Organization Address [facility] Co de Phone Number DARA SCHWARTZ [address] [address] Department [place] [address] * (ABNORMAL) Hepatitis A antibody, total Blood (11/02/2023 7:48 PM CDT) Pathologist [facility] Hep A total Reactive( A) Nonreactive Comment:Testing performed by : [facility], [address] [place] [address]., [id number] Blood 11/02/2023 7:48 PM CDT 11/03/2023 10:02 AM CDT Bhavesh Mariano MD LAB MICROBIOLOGY - GENERAL ORDERABLES Final Result Performing Organization Address [facility] Co de Phone Number ANTONIETTAELLEN [address] [address]ie Department [place] [employer] [place] [address] * RPR Blood (11/02/2023 7:48 PM CDT) Pathologist [facility] RPR Nonreactive Nonreactive Blood 11/02/2023 7:48 PM CDT 11/03/2023 10:45 AM CDT Bhavesh Mariano MD LAB MICROBIOLOGY - GENERAL ORDERABLES Final Result Performing Organization Address [facility] [place] [address] K[address]ie Department [place] [employer] [place] [address] * (ABNORMAL) Urinalysis reflex to microscopic and culture Urine (03/12/2023 1:13 AM CDT) Pathologist [facility] Color, ur Yellow Yellow Clarity, ur Clear [...] tendency for uric acid stone formation. Source: [facility] Current Interpretive Data was last revised on 2017 Protein, ur ql 3+(A) Negative [facility] Glucose, ur ql Negative Negative [facility] Ketones, ur Negative Negative [facility] Bilirubin, ur Negative Negative [facility] Blood, ur 3+(A) Negative [facility] Urobilinogen, ur <2.0 <2.0 mg/dL [facility] Nitrite, ur Negative Negative [facility] Leukocyte esterase, ur 1+(A) Negative [facility] UA reflex comment Reflex to microscopic UA will be performed. [facility] Urine 03/12/2023 1:13 AM CDT 03/12/2023 1:27 AM CDT Trey Pritchett MD LAB MICROBIOLOGY - GENERAL O RDERABLES Final Result DARA [address] [facility] Department [place] [address] from Last 3 Months or Most Recently Relevant to Health Maintenance Insurance [facility] MED[facility] Address: [facility] [address] [place] [address] [facility] MEDICARE ADVANTAGE [facility] Address: [address] [address] [place] [address] [facility] MEDICARE ADVANTAGE [facility] Address: [address] [address] [place] [address] Advance Directives For more information, please contact: [phone] Documents on File Type Date Recorded 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 Power of Chief Substation Operator 06/23/2021 4:27 PM * Full Code (Latest [...] 6:40 PM 09/01/2023 5:27 PM Care Teams Profile Grinder Technician Relationship Specialty Start Date End Date Idris Sanchez MD [address] [address] PCP - General Family Practice 05/18/24 Matteo Brooks MD [address] [facility], [address] [address] Medical Oncologist/Design Engineering Intern Medical Oncology 03/31/23 Gerson Keith MD [address] [facility], [address] [address] Consulting Physician Nephrology 05/07/23 Cassie Márquez MD [address] [facility] [place] [address] Consulting Physician Family Medicine 06/25/23 Seth Henderson IV, MD [address] [place] [address] Consulting Physician General Surgery 10/21/23 Seth Henderson IV, MD [facility] [address] Consulting Physician General Surgery 10/21/23 David Gorman MD [address] [place] [address] Radiation Oncologist Radiation Oncology 10/21/23 Blayne Sepulveda MD [address] [place] [address] [phone] Consulting Physician General Surgery 03/10/24 Gerson Forrester DO [address] [place] [address] Consulting Physician General Surgery 03/14/24
--- OUTSIDE RECORDS SUMMARY | 2024-08-20 09:43 | XMS_ITS | Encounter Summary ---
Author Organization [facility] Address [address] [place] [address] Phone Care Team Providers Care Contact Center Specialist Name Role Phone Josh Parham MD Primary Care Provider David Gorman MD Unavailable [phone] Matteo Brooks MD Unavailable [phone] Gerson Keith MD Unavailable Cassie Márquez MD Unavailable Beatriz TO MD, [place] Lansing Unavailable Beatriz TO MD, [place] Lansing Unavailable David Gorman MD Unavailable [phone] Blayne Sepulveda MD Unavailable Gerson Forrester DO Unavailable [phone] Idris Sanchez MD Primary Care Provi simba Encounter Details Date Type Department Care Team (Late st Contact Info) Description 09/06/2023 Conference of Physicians/Providers [facility] [address] [facility] [address] [place] [address] Matteo Brooks MD [address] [facility] [address] [place] [address] Social History Tobacco Use Types Packs/Day Years Used Date Smoking Tobacco: Some Days Cigarettes 0.3 10 Smokeless Tobacco: Never Comments:Last cigarette 04/24 0 Alcohol Use Standard Drinks/Week Comments Not Currently 0 (1 standard drink = 0.6 oz pur e alcohol) [facility] Utilities Answer Date Recorded In the past 12 months has e [employer], gas, oil, or water [employer] threatened to shut off services in your [...] often do you attend chur ch or pentecostal services? Never 08/30/2023 Do you belong to any clubs o r organizations such as restorationism groups, unions, fraternal or athletic groups, or [...] place to sleep or slept in a fdc (including now)? No 08/30/2023 Personal Safety Answer Date Recorded Have you ever been in or are you currently in a harmful physical or emotional relationship or is someone making you feel afraid or unsafe? 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 It was decided that [...] Description 10/05/2024 7:30 AM CDT Hospital Encounter [facility] [place] [address] [place] [address] [place] Henderson IV, MD [address] [place] [address] [phone] 10/05/2024 7:30 AM CDT - 10/05/2024 9:00 AM CDT Surgery [facility] [place] [address] [place] [address] [place] Henderson IV, MD [address] [place] [address] [phone] RECTAL EXAM UNDER ANESTHESIA WITH EXCISION ANAL [...] COVID: Suspected 07/28/2024 07/28/2024 07/29/2024 12:32 AM RADIO DIRECTOR RSV, droplet 07/28/2024 07/28/2024 08/04/2024 3:05 AM CDT documented as of this encounter Care Teams Contact Center Specialist Relationship Specialty Start Date End Date Josh Parham MD PCP - General Internal Medicine 06/12/21 05/17/24 Idris Sanchez MD [address] [address] PCP - General Family Practice 05/18/24 David Gorman MD Radiation Oncologist Radiation Oncology 03/25/23 Matteo Brooks MD [address] [facility], [address] [address] Medical Oncologist/Junior Data Analyst Medical Oncology 03/31/23 Gerson Keith MD [address] [facility], [address] [address] Consulting Physician Nephrology 05/07/23 Cassie Márquez MD 4500 [place] [address] Consulting Physician Family Medicine 06/25/23 Seth Henderson IV, MD [address] [place] [address] Consulting Physician General Surgery 10/21/23 Seth Henderson IV, MD [address] [place] [address] 538119 Consulting Physician General Surgery 10/21/23 David Gorman MD [address] [place] [address] Radiation Oncologist Radiation Oncology 10/21/23 Blayne Sepulveda MD [address] [address] Consulting Physician General Surgery 03/10/24 Gerson Forrester DO [address] [address] Consulting Physician General Surgery 03/14/24 documented as of this encounter
--- OUTSIDE RECORDS SUMMARY | 2024-08-20 09:43 | XMS_ITS | Encounter Summary ---
Author Organization [facility] Healthcare Address [address] [place] [address] Care Team Providers Care Assembler Molded Frames Name Role Phone Matteo Brooks MD Unavailable eGrson Keith MD Unavailable [phone] Cassie Márquez MD Unavailable Beatriz TO MD, Seth Vasquez Unavailable [phone] Beatriz TO MD, Seth Vasquez Unavailable [phone] David Gorman MD Unavailable [phone] Blayne Sepulveda MD Unavailable Gerson Forrester DO Unavailable [phone] Idris Sanchez MD Primary Care Provi simba Reason for Visit * Reason Onset Date Comments Clearances Prior to AVF vs AVG Creation 08/03/19 Encounter Details Date Type Department Care Team (Late st Contact Info) Description 08/02/2024 Telephone [facility] [address] [facility] [address] [place] [address] Jaskaran Aguirre MD [address] [place] [address] [address] [place] [address] Clearances Prior to AVF vs AVG Creation Social History Tobacco Use Types Packs/Day Years Used Date Smoking Tobacco: Some Days Cigarettes 0.3 10 Passive Smoke Exposure: Never Smokeless Tobacco: Never Comments:Last cigarette 04/24 0 Alcohol Use Standard Drinks/Week Comments Not Currently 0 (1 standard drink = 0.6 oz pur e alcohol) [facility] Utilities Answer Date Recorded In the [...] often do you attend chur ch or congregation services? 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 Patient had not established with dining server. Referral was sent to [facility] in [place] on 07/03/24 per skin care specialist, Radha's, request. On 07/06/24 I contacted cardiology [...] schedule appointment without success. I contacted patient's skin care specialist, Radha, to verify reason for not scheduling [...] reschedule once clearance has been obtained fromthe dining server. documented in this encounter Plan of Treatment Upcoming Encounters Date Type Department Care Team (Latest Contact Info) Description 10/05/2024 7:30 AM CDT Hospital Encounter [facility] OR [address] [place] [address] [place] Henderson IV, MD [address] [place] [address] 10/05/2024 7:30 AM CDT - 10/05/2024 9:00 AM CDT Surgery [facility] OR [address] [place] [address] Seth Henderson IV, MD [facility] [address] [phone] RECTAL EXAM UNDER ANESTHESIA WITH EXCISION ANAL [...] documented as of this encounter Care Teams Assembler Molded Frames Relationship Specialty Start Date End Date Idris Sanchez MD [address] [address] PCP - General Family Practice 05/18/24 Matteo Brooks MD [address] [facility], [address] [address] Medical Oncologist/Automation Tech Medical Oncology 03/31/23 Gerson Keith MD [address] [facility], [address] [address] Consulting Physician Nephrology 05/07/23 Cassie Márquez MD [address] [facility] [address] Consulting Physician Family Medicine 06/25/23 Seth Henderson IV, MD [address] [place] [address] Consulting Physician General Surgery 10/21/23 Seth Henderson IV, MD [address] [place] [address] Consulting Physician General Surgery 10/21/23 David Gorman MD [address] [place] [address] Radiation Oncologist Radiation Oncology 10/21/23 Blayne Sepulveda MD [address] [place] [address] Consulting Physician General Surgery 03/10/24 Gerson Forrester DO [address] [place] [address] [phone] Consulting Physician General Surgery 03/14/24 documented as of this encounter
--- OUTSIDE RECORDS SUMMARY | 2024-08-20 09:43 | XMS_ITS | Encounter Summary ---
Author Organization [facility] Address [address] [place] [address] Phone Care Team Providers Care Head Resident Name Role Phone Josh Parham MD Primary Care Provider [phone] Matteo Brooks MD Unavailable [phone] Gerson Keith MD Unavailable Cassie Márquez MD Unavailable Beatriz TO MD, Seth Vasquez Unavailable Beatriz TO MD, [place] Lansing Unavailable David Gorman MD Unavailable [phone] Blayne Sepulveda MD Unavailable Gerson Forrester DO Unavailable [phone] Idris Sanchez MD Primary Care Provi simba Encounter Details Date Type Department Care Team (Late st Contact Info) Description 12/17/2023 Conference of Physicians/Providers [facility] [place] [facility] [address] [place] [address] [address] [place] [address] Addis Uriarte, RN Social History Tobacco Use Types Packs/Day Years Used Date Smoking Tobacco: Some Days Cigarettes 0.3 10 Passive Smoke Exposure: Never Smokeless Tobacco: Never Comments:Last cigarette 04/24 0 Alcohol Use Standard Drinks/Week Comments Not Currently 0 (1 standard drink = 0.6 oz pur e alcohol) [facility] Utilities Answer Date Recorded In [...] often do you attend chur ch or buddhism services? Never 10/11/2023 Do you belong to any clubs o r organizations such as anglican groups, unions, fraternal or athletic groups, or [...] place to sleep or slept in a halfway (including now)? No 08/30/2023 Housing Stability Vital [...] time in the past 12 m [facility], were you homeless or living in a halfway (including now)? No 10/11/2023 Personal Safety Answer Date Recorded Have you ever been in or are you currently in a harmful physical or emotional relationship or is someone making you feel afraid or unsafe? 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 Gender Identity Not on file Sexual Orientation Not on file documented as of this encounter Plan of Treatment Upcoming Encounters Date Type Department Care Team (Latest Contact Info) Description 10/05/2024 7:30 AM CDT Hospital Encounter [facility] OR [address] [place] [address] Seth Henderson IV, MD [facility] [address] 10/05/2024 7:30 AM CDT - 10/05/2024 9:00 AM CDT Surgery [facility] OR [address] [place] [address] Seth Henderson IV, MD [facility] [address] [address] RECTAL EXAM UNDER ANESTHESIA WITH EXCISION ANAL [...] COVID: Suspected 07/28/2024 07/28/2024 07/29/2024 12:32 AM QUALITY ASSURANCE SUPERVISOR CHASSIS RSV, droplet 07/28/2024 07/28/2024 08/04/2024 3:05 AM CDT documented as of this encounter Care Teams Head Resident Relationship Specialty Start Date End Date Josh Parham MD PCP - General Internal Medicine 06/12/21 05/17/24 Idris Sanchez MD [address] [address] PCP - General Family Practice 05/18/24 Matteo Brooks MD [address] [facility], [address] [address] Medical Oncologist/Finance Insurance Manager Medical Oncology 03/31/23 Gerson Keith MD [address] [facility], [address] [address] Consulting Physician Nephrology 05/07/23 Cassie Márquez MD [address] [place] [address] Consulting Physician Family Medicine 06/25/23 Seth Henderson IV, MD [address] [place] [address] Consulting Physician General Surgery 10/21/23 Seth Henderson IV, MD [address] [place] [address] 455969 Consulting Physician General Surgery 10/21/23 David Gorman MD [address] [place] [address] [phone] Radiation Oncologist Radiation Oncology 10/21/23 Blayne Sepulveda MD [address] [place] [address] [phone] Consulting Physician General Surgery 03/10/24 Gerson Forrester DO [address] [place] [address] [phone] Consulting Physician General Surgery 03/14/24 documented as of this encounter
--- OUTSIDE RECORDS SUMMARY | 2024-08-20 09:43 | XMS_ITS | Encounter Summary ---
Author Organization [facility] Healthcare Address [address] [place] [address] Care Team Providers Care Lactation Nurse Name Role Phone Matteo Brooks MD Unavailable [phone] Gesron Keith MD Unavailable Cassie Márquez MD Unavailable Beatriz TO MD, Seth Vasquez Unavailable Beatriz TO MD, [place] Lansing Unavailable David Gorman MD Unavailable [phone] Blayne Sepulveda MD Unavailable Gerson Forrester DO Unavailable [phone] Idris Sanchez MD Primary Care Provi simba Encounter Details Date Type Department Care Team (Late st Contact Info) Description 08/01/2024 Results Follow-Up [facility] Medical Group Convenient Care at [address] [address] Laina Yancey PA [address] [place] [address] [address] [place] [address] Social History Tobacco Use Types Packs/Day Years Used Date Smoking Tobacco: Some Days Cigarettes 0.3 10 Passive Smoke Exposure: Never Smokeless Tobacco: Never Comments:Last cigarette 04/24 0 Alcohol Use Standard Drinks/Week Comments Not Currently 0 (1 standard drink = 0.6 oz pur e alcohol) [facility] Utilities Answer Date Recorded In [...] often do you attend chur ch or scientology services? Never 04/11/2024 Do you belong to any clubs o r organizations such as quaker groups, unions, fraternal or athletic groups, or [...] place to sleep or slept in a half-way (including now)? No 08/30/2023 PHQ-9 Answer Date [...] were you homeless or living in a half-way (including now)? No 04/11/2024 Personal Safety Answer Date Recorded Have you ever been in or are you currently in a harmful physical or emotional relationship or is someone making you feel afraid or unsafe? 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 Gender Identity Not on file Sexual Orientation Not on file documented as of this encounter Plan of Treatment Upcoming Encounters Date Type Department Care Team (Latest Contact Info) Description 10/05/2024 7:30 AM CDT Hospital Encounter [facility] OR [address] [place] [address] [place] Henderson IV, MD [address] [place] [address] 10/05/2024 7:30 AM CDT - 10/05/2024 9:00 AM CDT Surgery [facility] OR [address] [place] [address] Seth Henderson IV, MD [address] [place] [address] [phone] RECTAL EXAM UNDER ANESTHESIA WITH EXCISION ANAL [...] documented as of this encounter Care Teams Lactation Nurse Relationship Specialty Start Date End Date Idris Sanchez MD [address] [address] PCP - General Family Practice 05/18/24 Matteo Brooks MD [address] [facility], [address] [address] Medical Oncologist/Panel Wirer Medical Oncology 03/31/23 Gerson Keith MD [address] [facility], [address] [address] Consulting Physician Nephrology 05/07/23 Cassie Márquez MD [address] [place] [address] Consulting Physician Family Medicine 06/25/23 Seth Henderson IV, MD [address] [place] [address] Consulting Physician General Surgery 10/21/23 Seth Henderson IV, MD [address] [place] [address] [phone] Consulting Physician General Surgery 10/21/23 David Gorman MD [address] [place] [address] [phone] Radiation Oncologist Radiation Oncology 10/21/23 Blayne Sepulveda MD [address] [place] [address] [phone] Consulting Physician General Surgery 03/10/24 Gerson Forrester DO [address] [place] [address] [phone] Consulting Physician General Surgery 03/14/24 documented as of this encounter
--- OUTSIDE RECORDS SUMMARY | 2024-08-20 09:43 | XMS_ITS ---
Author Organization [facility] [address] Address [address] [place] [address] Care Team Providers Care Cage Manager Name Role Phone Matteo Brooks MD Unavailable [phone] Gerson Keith MD Unavailable Cassie Márquez MD Unavailable Beatriz TO MD, Seth Vasquez Unavailable Beatriz TO MD, Lyman Lansing Unavailable David Gorman MD Unavailable [phone] Blayne Sepulveda MD Unavailable Gerson Forrester DO Unavailable [phone] Idris Sanchez MD Primary Care Provi [...] AND COVID-19 PCR Routine 07/28/2024 6:01 PM DINKEY BRAKEMAN Elevated blood pressure reading in office with diagnosis of hypertension EGFR Routine 06/27/2024 3:37 PM DINKEY BRAKEMAN Currently asymptomatic HIV infection, with history of HIV-related illness (HCC) COMPREHENSIVE METABOLIC PANEL Routine 06/27/2024 3:37 PM DINKEY BRAKEMAN Currently asymptomatic HIV infection, with history of HIV-related illness (HCC) T-HELPER CELLS (CD4) COUNT Routine 06/27/2024 3:37 PM DINKEY BRAKEMAN Currently asymptomatic HIV infection, with history of HIV-related illness (HCC) HEPATITIS B DNA, QUANTITATIVE, PCR Routine 06/27/2024 3:37 PM DINKEY BRAKEMAN Currently asymptomatic HIV infection, with history of HIV-related illness (HCC) HIV-1 RNA, QUANTITATIVE, PCR Routine 06/27/2024 3:37 PM DINKEY BRAKEMAN Currently asymptomatic HIV infection, with history of HIV-related illness (HCC) CT ABDOMEN PELVIS W CONTRAST IP Routine 04/15/2024 6:22 PM DINKEY BRAKEMAN TB TEST, QUANTIFERON GOLD Routine 01/21/2024 10:15 [...] 07/11/2024 Assessment & Plan (07/17/2024 8:36 AM DINKEY BRAKEMAN): 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 [...] saw urologist, Dr. Salas, and was given Quack. No current complaints of urinary outlet syndrome. Last Assessment & Plan: Noted on recent renal ultrasound. Reports that he recently saw urologist, Dr. Salas, and was given Quack. No current complaints of urinary outlet syndrome. [...] screening Assessment & Plan (07/28/2021 1:03 PM DINKEY BRAKEMAN): He has a history of chronic hep [...] Imdur and Losartan. He will see his cloud consultant next week to discuss further changes in [...] controlled. He follows with Dr. Parham and cloud consultant. No changes in medications today. Note that [...] regimen. Referral to infectious disease specialists at [facility] has been made, but apparently, they do [...] regimen. Referral to infectious disease specialists at 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 Full details of background history on prior notes (see my note from 11/02/2023. His girlfriend Radha is assisting him dye machine tender for all his healthcare needs including giving [...] for drug interactions with ART. 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 Details of history on HPI. His girlfriend Radha is assisting him dye machine tender for all his healthcare needs including giving [...] for drug interactions with ART. 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 Details of history on HPI. His girlfriend Radha is assisting him dye machine tender for all his healthcare needs including giving [...] for drug interactions with ART. Recommended resource: https://www.hiv-druginteractions.org/soil checker Assessment & Plan (10/17/2021 11:24 AM [...] BID + Prezcobix - Discussed adherence at [facility] bactrim for PJP prophylaxis - [...] BID + Prezcobix - Discussed adherence at [facility] bactrim for PJP prophylaxis - RTC in 4 weeks for close follow up - Discussed partner getting on PrEP; HIV test for partner today Assessment & Plan (07/28/2021 1:01 PM DINKEY BRAKEMAN): Mr. Salcedo is a 66 year old [...] Immunization Administration Dates Next Due COVID-19 mRNA (Sqoot) 0.3 m L (30 mcg) vaccine (12 years and up) 06/27/2024,02/16/2023 Hep B, Unspecified 11/27/2011,10/28/2011, 012 Influenza, Quad, Adjuvantate d, Intramuscular 05/23/2022,03/03/2021,02/19/2020 Influenza, Quadrivalent, Hig h Dose, Preservative Free, Intrr 02/16/2023 Influenza, Quadrivalent, Rec ombinant, Egg Free, Preservative Free, Intramuscular 04/25/2019,06/16/2018 Influenza, Quadrivalent, Spl it, Intramuscular 01/28/2017 Influenza, Quadrivalent, Spl it, Preservative Free, Intramuscular 01/28/2017,06/23/2016,06/19/2014 Influenza, Unspecified 02/23/2024,2022,02/19/2020,02/11 Meningococcal MCV4P (Menactra) 10/14/2018,2018 [employer] SARS-CoV-2 Monovalent Vaccination (12+ Yrs) PURPLE 07/07/2021 [...] 0.6 oz pur e alcohol) [facility] [employer] Answer Date Recorded In the past 12 months has e Vend-a-Bar, gas, oil, or water [employer] (formerly [employer]) threatened to shut off services in your [...] often do you attend chur ch or shinto services? Never 04/11/2024 Do you belong to any clubs o r organizations such as scientology groups, unions, fraternal or athletic groups, or [...] in the past 12 m [facility], were you homeless or living in a skilled nursing (including now)? No 04/11/2024 Personal Safety Answer Date Recorded Have you ever been in or are you currently in a harmful physical or emotional relationship or is someone making you feel afraid or unsafe? Denies 04/07/2024 Sex and Gender Information Value Date Recorded Sex Assigned at Not on file Legal Sex Male 11:35 AM DINKEY BRAKEMAN Gender Identity Not on file Sexual Orientation [...] Alf Rios M.D. MZ T: Report ID: [id number] Reading Location: [id number] Narrative 08/01/2024 10:02 AM CDT EXAM DESCRIPTION: [...] signed by Alf PEREZ T: Report ID: [id number] Reading Location: [place] [address] Procedure Note Alf Rios MD - 08/01/2024 [...] by Alf Alcantar.D. MZ T: Report ID: [id number] Reading Location: [place] [address] Merrick Aguirre NP IMG XR PROCEDURES Edited Result - Final * (ABNORMAL) Influenza A/B, RSV, and COVID-19 PCR Nasopharyngeal (07/28/2024 6:01 PM DINKEY BRAKEMAN) [facility] COVID-19 RNA Negative Negative Influenza A RNA Negative Negative [facility] Influenza B RNA Negative Negative [facility] RSV RNA Positive(A) Negative [facility] Comment: Interpretive data: Testing performed by [facility]. This test is performed using the [employer] Xpert Xpress CoV-2/Flu/RSV plus assay. This is a multiplex, real-time reverse transcriptase PCR assay intended for the qualitative detection of nucleic acid from SARS-CoV-2, influenza A, influenza B, and respiratory syncytial virus. This assay has been cleared by the [place] Food and Drug administration. The performance characteristics have been verified by the [facility]. Results must be considered in the clinical context, and a negative result does not rule out infection. Interpretive Data last revised 2023 Nasopharyngeal 07/28/2024 6: 01 PM DINKEY BRAKEMAN 07/28/2024 11:48 PM DINKEY BRAKEMAN Narrative [facility] - 07/29/2024 12:31 AM DINKEY BRAKEMAN Is the Patient experiencing symptoms consistent with COVID?->Yes Reason for testing?->Symptomatic Known exposure to confirmed or suspected COVID-19 case?->No Merrick Aguirre NP LAB MICROBIOLOGY - GENERAL ORDE [facility] Final Result [facility] [address] Department [place] [address] * (ABNORMAL) eGFR (06/27/2024 3:37 PM DINKEY BRAKEMAN) [facility] eGFR 7(L) >=60 mL/min/1. 73 m2 Comment: [...] last reviewed 2021. Blood 06/27/2024 3:37 PM DINKEY BRAKEMAN 06/27/2024 7:08 PM DINKEY BRAKEMAN Bhavesh Mariano MD LAB BLOOD ORDERAB LES Final Result DARA SCHWARTZ [address] Department [place] [address] * (ABNORMAL) Hepatitis B (HBV) DNA PCR, quantitative Blood (06/27/2024 3:37 PM DINKEY BRAKEMAN) [facility] HBV DNA Result Detected( A) [facility] Comment: The quantifiable range of this assay is 10 IU/mL to 1,000,000,000 IU/mL (1.00 log IU/mL to 9.00 log IU/mL). Testing was performed by the VY 6800 HBV Test version 2.0 ([employer] Testing performed at [facility] Current Interpretive Data was last revised on 2020. Testing performed by: [facility], [address] [place]., [address] HBV DNA IU/mL 11,600,00 0 IUnits/mL DARA SCHWARTZ Comment:Testing performed by : [facility], [address] [place]., [address] HBV DNA log IU/mL 7.06 log IUnits/mL DARA SCHWARTZ Comment:Testing performed by : [facility], [address] [place]., [address] Blood 06/27/2024 3:37 PM DINKEY BRAKEMAN 06/28/2024 10:05 AM DINKEY BRAKEMAN Bhavesh Mariano MD LAB MICROBIOLOGY - GENERAL ORDERABLES Final Result Performing Organization Address [facility] Co de Phone Number [facility] [address] [place] [address] [facility] * (ABNORMAL) HIV-1 RNA PCR, quantitative Blood (06/27/2024 3:37 PM DINKEY BRAKEMAN) [facility] HIV-1 RNA Detected( A) [facility] Comment: The quantifiable range of this assay is 20 copies/mL to 10,000,000 copies/mL (1.30 log copies/mL to 7.00 log copies/mL). Testing was performed by the VY 6800 HIV-1 Test([employer] Testing performed at [facility] Current Interpretive Data was last revised on 2020. Testing performed by: [facility], [address] [place]., [address] HIV-1 RNA, copies/mL 92 copies/mL [facility] Comment:Testing performed by : [facility], [address] [place]., [address] HIV-1 RNA, log 1.96 log cps/mL [facility] Comment:Testing performed by : [facility], [address] [place]., [address] Blood 06/27/2024 3:37 PM DINKEY BRAKEMAN 06/28/2024 10:05 AM DINKEY BRAKEMAN Bhavesh Mariano MD LAB MICROBIOLOGY - GENERAL ORDERABLES Final Result Performing Organization Address City/[facility]/ZIP Co de Phone Number DARA [address] [place] [address] [facility] * (ABNORMAL) T-helper cells (CD4) count (06/27/2024 3:37 PM DINKEY BRAKEMAN) [facility] WBC 3.7(L) 3.8 - 9.9 K/cumm Lymphocyte Pct 37.0 16.0 - 52.0 % [facility] Lymphocyte # 1,369 1,200 - 3,500 cells/mcL [facility] CD3 pct 76.6 60.0 - 85.0 % [facility] Comment: Interpretive Data The tests utilizing Class I analyte specific reagents (ASRs) cited in this report (if any, and unless otherwise documented) were developed and their performance characteristics determined by [facility]. They have not [...] CD3 Absolute 1,049 720 - 2,975 cells/mcL [facility] CD4 pct 10.7(L) 29.0 - 59.0 % [facility] Comment: Interpretive Data The tests utilizing Class I analyte specific reagents (ASRs) cited in this report (if any, and unless otherwise documented) were developed and their performance characteristics determined by [facility]. They have not [...] Absolute 146(L) 348 - 2,065 cells/mcL [facility] CD8 pct 65.9(H) 12.0 - 43.0 % [facility] Comment: Interpretive Data The tests utilizing Class I analyte specific reagents (ASRs) cited in this report (if any, and unless otherwise documented) were developed and their performance characteristics determined by [facility]. They have not [...] Absolute 902 144 - 1,505 cells/mcL [facility] CD19 pct 7.5 7.0 - 23.0 % [facility] Comment: Interpretive Data The tests utilizing Class I analyte specific reagents (ASRs) cited in this report (if any, and unless otherwise documented) were developed and their performance characteristics determined by [facility]. They have not been [...] Absolute 103 84 - 805 cells/mcL [facility] [id number] pct 14.1 6.0 - 29.0 % [facility] Comment: Interpretive Data The tests utilizing Class I analyte specific reagents (ASRs) cited in this report (if any, and unless otherwise documented) were developed and their performance characteristics determined by [facility]. They have not [...] Interpretive Data was last revised on 2013 [id number] Absolute 193 72 - 1,015 cells/mcL [facility] CD4/CD8 ratio 0.2(L) 0.7 - 3.5 [facility] Blood 06/27/2024 3:37 PM DINKEY BRAKEMAN 06/27/2024 6:40 PM DINKEY BRAKEMAN us Bhavesh Mariano MD LAB BLOOD ORDERAB LES Final Result [facility]ARA SCHWARTZ [address] Department [place] [address] * (ABNORMAL) Comprehensive metabolic panel (06/27/2024 3:37 PM DINKEY BRAKEMAN) Sodium 135 135 - 145 mmol/L Potassium, [...] Units/L CERNER CH Blood 06/27/2024 3:37 PM DINKEY BRAKEMAN 06/27/2024 6:42 PM DINKEY BRAKEMAN us Bhavesh Mariano MD LAB BLOOD ORDERAB LES Final Result [facility] [address] Department [place] [address] * CT Abdomen Pelvis W Contrast (04/15/2024 6:22 PM DINKEY BRAKEMAN) Anatomical Region Laterality Modality Body N/A Computed Tomogra phy 04/15/2024 8:50 PM DINKEY BRAKEMAN Narrative 04/15/2024 9:50 PM DINKEY BRAKEMAN EXAM DESCRIPTION: CT ABDOMEN PELVIS W CONTRAST [...] Driss Meza M.D. AR: PATRICK Report ID: [id number] Reading Location: [id number] Procedure Note Driss Meza MD - 04/15/2024 [...] Driss Meza M.D. AR: PATRICK Report ID: [id number] Reading Location: [place] [address] Isidro Daigle MD [place] CT PROCEDURES Final Resu lt * TB test, quantiferon gold (01/21/2024 10:15 AM CDT) Pathologist [facility] Quantiferon TB Gold Negative Negative [facility] Comment: No interferon-gamma response to [...] 0.02 IUnits/mL CERNER Comment: Test Performed by: [place] [address] [employer]: Henry Radford Ph.D.; CLIA# [id number] Blood 01/21/2024 10:1 5 AM CDT 01/21/2024 10:35 AM CDT Negrito Amaya MD LAB BLOOD ORDERABLES Trina sabiha Result DARA [address] Department [place] [address] [facility] * (ABNORMAL) Hepatitis C antibody Blood (11/02/2023 8:16 PM CDT) Pathologist [facility] Hep C Ab Reactive( A) Nonreactive Comment: [...] GENERAL ORDERABLES Final Result Performing Organization Address [facility] Co de Phone Number [facility] [address] [place] [address] * Hemoglobin A1c (11/02/2023 8:03 PM CDT) Hgb A1C 4.7 4.0 - 5.6 % Estimated Average Glucose 88 mg/dL DARA SCHWARTZ Comment: The ADA recommends reporting an estimated Average Glucose (eAG) with all Hemoglobin A1c results using the equation derived from a study of 507 normal and diabetic adults. Minority populations were underrepresented and children were not included. (Diabetes Care 31:8409-5921, 2008). The eAG is not equivalent to a fasting glucose. Blood 11/02/2023 8:03 PM CDT 11/02/2023 8:03 PM CDT Bhavesh Mariano MD LAB BLOOD ORDERAB LES Final Result Performing Organization Address [facility] Co de Phone Number [place] [address] [facility] [place] [address] * Lipid panel (11/02/2023 8:03 PM CDT) Pathologist [facility] Cholesterol 189 30 - 199 mg/dL Comment: [...] ORDERAB LES Final Result Performing Organization Address City/[facility] Co de Phone Number DARA [address] [place], [place] [id number] * (ABNORMAL) Hepatitis A antibody, total Blood (11/02/2023 7:48 PM CDT) Hep A total Reactive( A) Nonreactive Comment:Testing performed by : [facility], [address] [facility], [place]., [address] Blood 11/02/2023 7:48 PM CDT 11/03/2023 10:02 AM CDT Bhavesh Mariano MD LAB MICROBIOLOGY - GENERAL ORDERABLES Final Result Performing Organization Address City/[facility] Co de Phone Number DARA [address] [place] [address] * RPR Blood (11/02/2023 7:48 PM CDT) RPR Nonreactive Nonreactive Blood 11/02/2023 7:48 PM CDT 11/03/2023 10:45 AM CDT Bhavesh Mariano MD LAB MICROBIOLOGY - GENERAL ORDERABLES Final Result Performing Organization Address City/[facility]/ZIP Co de Phone Number DARA [address] [place] [address] * (ABNORMAL) Urinalysis reflex to microscopic and culture Urine (03/12/2023 1:13 AM CDT) Color, ur Yellow Yellow Clarity, ur Clear Clear DARA Specific gravity, ur 1.009 1.003 - 1.030 [facility] pH, urine 5.0 [facility] Comment: Interpretive Data U rine pH is affected by diet, medications, systemic acid-base disturbances, and renal tubular function. pH may affect urinary stone formation. For example, urine pH below 6.0 may help reduce the tendency for calcium phosphate stones and pH greater than 6.0 may reduce the tendency for uric acid stone formation. Source: [facility] [employer] Current Interpretive Data was last revised on 2017 Protein, ur ql 3+(A) Negative [facility] Glucose, ur ql Negative Negative [facility] Ketones, ur Negative Negative [facility] Bilirubin, ur Negative Negative [facility] Blood, ur 3+(A) Negative [facility] Urobilinogen, ur <2.0 <2.0 mg/dL [facility] Nitrite, ur Negative Negative [facility] Leukocyte esterase, ur 1+(A) Negative [facility] UA reflex comment Reflex to microscopic UA will be performed. DARA Urine 03/12/2023 1:13 AM CDT 03/12/2023 1:27 AM CDT us Trey Pritchett MD LAB MICROBIOLOGY - GENERAL O RDERABLES Final Result DARA [address] [facility] Department [place] [address] from Last 3 Months or Most Recently Relevant to Health Maintenance
--- OUTSIDE RECORDS SUMMARY | 2024-08-20 09:43 | XMS_ITS | Encounter Summary ---
Author Organization [facility] Address [address] [facility] [place] [address] Care Team Providers Care Hearing Aid Assistant Name Role Phone Josh Parham MD Primary Care Provider Josh Parham MD Unavailable [phone] Care, [facility] Kidney Unavailable Charu Carter ROTARY DRILLER HELPER-AIRCRAFT POWERPLANT REPAIRER Unavailable Josh Parham MD Unavailable [phone] Reason for Visit * Reason Onset Date Comments MEDICATION REFILL 02/07/2024 Encounter Details Date Type Department Care Team (Late st Contact Info) Description 02/07/2024 Refill [facility] Medical [facility] - Internal Medicine [address] [place] [id number] Ashwini Walter MD [address] [place] [phone] MEDICATION REFILL Social History Tobacco Use [...] Sex Assigned at Male 07/03/2021 7:30 AM TRACKWALKER Gender Identity Male 07/03/2021 7:30 AM TRACKWALKER Sexual Orientation Not on file documented as [...] Description 10/03/2024 1:30 PM CDT Office Visit [facility] - Internal Medicine [address] [place] [id number] Josh Parham MD [address] [place] [phone] documented as of this encounter Visit Diagnoses Not on filedocumented in this encounter Care Teams Hearing Aid Assistant Relationship Specialty Start Date End Date Josh Parham MD PCP - General Internal Medicine 05/27/11 Josh Parham MD [address] [place] [phone] PCP - Attributed-C MA 10/22/22 Charu Carter, ROTARY DRILLER HELPER-AIRCRAFT POWERPLANT REPAIRER [facility] [place] [id number] PCP - [facility] 11/22/23 03/23/24 Josh Parham MD [facility] [phone] PCP - [facility]rive O 03/24/24 Care, [facility] Care Management 12/23/22 documented as of this encounter
--- OUTSIDE RECORDS SUMMARY | 2024-08-20 09:43 | XMS_ITS | Encounter Summary ---
Author Organization [facility] Address [address] [place] [address] Care Team Providers Care Tin Assorter Name Role Phone Josh Parham MD Primary Care Provider Josh Parham MD Unavailable [phone] Care, [facility] Kidney Unavailable [phone] Josh Parham MD Unavailable [phone] Reason for Visit * Reason Onset Date Comments MEDICATION REFILL 03/24/2024 Medication Issue 03/24/2024 Update 03/24/2024 Change Pharmacy & Add Med Not on List Encounter Details Date Type Department Care Team (Late st Contact Info) Description 03/24/2024 Refill [facility] - Internal Medicine [facility] [address] [phone] Josh Parham MD [address] [place] [phone] MEDICATION REFILL; Medication Issue; Update (Change [...] Sex Assigned at Male 07/03/2021 7:30 AM PLUG SAW OPERATOR Gender Identity Male 07/03/2021 7:30 AM PLUG SAW OPERATOR Sexual Orientation Not on file documented as of this encounter Miscellaneous Notes * Telephone Encounter - Breanna Ceja - 03/27/2024 12:02 PM PLUG SAW OPERATOR Patient is wanting have all medication including [...] the other 3 to be sent to [facility] in [facility] on [facility], included in this encounter and not the [facility], send GENEVIEVE due to he is out of [facility]. Requested Prescriptions Pending Prescriptions Disp Refills [...] been updated and sent to correct pharmacy SAW OPERATOR * Telephone Encounter - Nory Zavala - [...] Description 10/03/2024 1:30 PM CDT Office Visit [facility] Medical [facility] - Internal Medicine [address] [facility] [address] [place] [address] Josh Parham MD [address] [phone] documented as of this encounter Visit Diagnoses Diagnosis Psoriasis Other psoriasis Chronic obstructive pulmonary disease, unspecified COPD type (HCC) documented in this encounter Care Teams Tin Assorter Relationship Specialty Start Date End Date Josh Parham MD PCP - General Internal Medicine 05/27/11 Josh Parham MD [address] [phone] PCP - Attributed-[facility] [place] 10/22/22 [place] [address] [place] [phone] PCP - [facility] 03/24/24 Care, [facility] Kidney Care Management 12/23/22 documented as of this encounter
--- OUTSIDE RECORDS SUMMARY | 2024-08-20 09:43 | XMS_ITS | Encounter Summary ---
Author Organization [facility] Address [address] [place] [address] Care Team Providers Care Poker Prop Player Name Role Phone Josh Parham MD Primary Care Provider [phone] Josh Parham MD Unavailable [phone] Care, [facility] Unavailable Charu Carter AUTOMOTIVE PROJECT ENGINEER-BLUEPRINT READER Unavailable Josh Parham MD Unavailable [phone] Reason for Visit * Reason Onset Date Comments MEDICATION REFILL 02/28/2024 Encounter Details Date Type Department Care Team (Late st Contact Info) Description 02/28/2024 Refill [facility] Medical [facility] - Internal Medicine [facility] [address] [place] [address] Josh Parham MD [address] [place] [phone] MEDICATION REFILL Social History Tobacco Use [...] Sex Assigned at Male 07/03/2021 7:30 AM DRAGLINE OPERATOR Gender Identity Male 07/03/2021 7:30 AM DRAGLINE OPERATOR Sexual Orientation Not on file documented as of this encounter Plan of Treatment Upcoming Encounters Date Type Department Care Team (Late st Contact Info) Description 10/03/2024 1:30 PM CDT Office Visit [facility] - Internal Medicine [address] [facility] [address] [place] [address] Josh Parham MD [address] [place] [phone] documented as of this encounter Visit Diagnoses Not on filedocumented in this encounter Care Teams Poker Prop Player Relationship Specialty Start Date End Date Josh Parham MD PCP - General Internal Medicine 05/27/11 Josh Parham MD [address] [place] [phone] PCP - Attributed-[facility] [place] 10/22/22 Charu Carter APRN-BLUEPRINT READER [address] [place] [phone] PCP - [facility] 11/22/23 03/23/24 Josh Parham MD [address] [place] [phone] PCP - [facility] 03/24/24 Care, [facility] Care Management 12/23/22 documented as of this encounter
--- OUTSIDE RECORDS SUMMARY | 2024-08-20 09:43 | XMS_ITS | Encounter Summary ---
Author Organization [facility] Healthcare Address [address] [place] [address] Care Team Providers Care Poker In Name Role Phone Matteo Brooks MD Unavailable [phone] Gerson Keith MD Unavailable [phone] Cassie Márquez MD Unavailable Beatriz TO MD, Seth Vasquez Unavailable Beatriz TO MD, Lyman Lansing Unavailable David Gorman MD Unavailable [phone] Blayne Sepulveda MD Unavailable Gerson Forrester DO Unavailable [phone] Idris Sanchez MD Primary Care Provi simba Encounter Details Date Type Department Care Team (Late st Contact Info) Description 07/29/2024 Results Follow-Up [facility] Medical Group [facility] [place] [address] [place] [address] Merrick Aguirre NP [address] [place] [address] [address] [place] [address] Social History Tobacco Use Types Packs/Day Years Used Date Smoking Tobacco: Some Days Cigarettes 0.3 10 Passive Smoke Exposure: Never Smokeless Tobacco: Never Comments:Last cigarette 12/2 0 Alcohol Use Standard Drinks/Week Comments Not Currently 0 (1 standard drink = 0.6 oz pur e alcohol) [facility] Utilities Answer Date Recorded In the [...] often do you attend chur ch or spiritism services? Never 04/11/2024 Do you belong to any clubs o r organizations such as amish groups, unions, fraternal or athletic groups, or [...] in a fdc (including now)? No 08/30/2023 PHQ-9 Answer Date [...] any time in the past [address] [facility], were you homeless or living in a fdc (including now)? No 04/11/2024 Personal Safety Answer Date Recorded Have you ever been in or are you currently in a harmful physical or emotional relationship or is someone making you feel afraid or unsafe? Denies 04/07/2024 Sex and Gender Information Value Date Recorded Sex Assigned at Not on file Legal Sex Male 11:35 AM BOLOGNA MAKER Gender Identity Not on file Sexual Orientation Not on file documented as of this encounter Miscellaneous Notes * Result Encounter Note - Nancy Elizabeth LPN - 07/29/2024 10:26 AM BOLOGNA MAKER Spoke with Radha fernandez (on HIPAA/pts biochemical development engineer) and informed her of pts results and follow up instructions and she verbalized understanding. Discussed xray hours and availability and other locations for pt to get xray. GNA MAKER documented in this encounter Plan of Treatment Upcoming Encounters Date Type Department Care Team (Latest Contact Info) Description 10/05/2024 7:30 AM CDT Hospital Encounter [facility] OR [address] [place] [address] Seth Henderson IV, MD [address] [place] [address] [phone] 10/05/2024 7:30 AM CDT - 10/05/2024 9:00 AM CDT Surgery [facility] [place] [address] [place] [address] Seth Henderson IV, MD [address] [place] [address] [phone] RECTAL EXAM UNDER ANESTHESIA WITH EXCISION ANAL MASS Scheduled Procedures Name Priority Associated Diagnoses Date/Ti me HEMORRHOIDECTOMY ANAL CANCER 10/05/2024 7:30 AM CDT COLONOSCOPY ANAL CANCER 10/05/2024 7:30 AM CDT documented as of this encounter Visit Diagnoses Not on filedocumented in this encounter Additional Health Concerns Infection Onset Date Last Indicated Resolved Time COVID: Suspected 07/28/2024 07/28/2024 07/29/2024 12:32 AM BOLOGNA MAKER RSV, droplet 07/28/2024 07/28/2024 08/04/2024 3:05 AM CDT documented as of this encounter Care Teams Poker In Relationship Specialty Start Date End Date Idris Sanchez MD [address] [address] PCP - General Family Practice 05/18/24 Matteo Brooks MD [address] [facility] [facility], [address] [address] Medical Oncologist/Print Line Supervisor Medical Oncology 03/31/23 Gerson Keith MD [address] [facility], [address] [address] Consulting Physician Nephrology 05/07/23 Cassie Márquez MD [address] [facility] [place] [address] Consulting Physician Family Medicine 06/25/23 Seth Henderson IV, MD [address] [place] [address] Consulting Physician General Surgery 10/21/23 Seth Henderson IV, MD [address] [place] [address] Consulting Physician General Surgery 10/21/23 David Gorman MD [address] [place] [address] Radiation Oncologist Radiation Oncology 10/21/23 Blayne Sepulveda MD [address] [place] [address] [phone] Consulting Physician General Surgery 03/10/24 Gerson Forrester DO [address] [place] [address] [phone] Consulting Physician General Surgery 03/14/24 documented as of this encounter
--- OUTSIDE RECORDS SUMMARY | 2024-08-20 09:43 | XMS_ITS ---
Author Organization [facility] [address] Address [address] [place] [address] Care Team Providers Care Senior Interior Designer Name Role Phone Matteo Brooks MD Unavailable [phone] Gerson Keith MD Unavailable [phone] Cassie Márquez MD Unavailable Beatriz TO MD, Lyman Lansing Unavailable Beatriz TO MD, Lyman Lansing Unavailable David Gorman MD Unavailable [phone] Blayne Sepulveda MD Unavailable [phone] Gerson Forrester DO Unavailable [phone] Idris Sanchez MD Primary Care Provi simba Active Problems Problem Noted Date Diagnosed Date Muscle spasms of neck 08/15/2024 Chronic hepatitis B 07/11/2024 Assessment & Plan (07/17/2024 8:36 AM HUMAN SERVICES PROFESSIONAL): 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 [...] saw urologist, Dr. Salas, and was given Advanced Liquid Logic. No current complaints of urinary outlet syndrome. Last Assessment & Plan: Noted on recent renal ultrasound. Reports that he recently saw urologist, Dr. Salas, and was given Advanced Liquid Logic. No current complaints of urinary outlet syndrome. [...] screening Assessment & Plan (07/28/2021 1:03 PM HUMAN SERVICES PROFESSIONAL): He has a history of chronic hep [...] Imdur and Losartan. 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 He follows with Dr. Parham and railroad police officer. No changes in medications today. Note that [...] regimen. Referral to infectious disease specialists at [facility] has been made, but apparently, [...] regimen. 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 Full details of background history on prior notes (see my note from 11/02/2023. His girlfriend Radha is assisting him time broker for all his healthcare needs including giving [...] for drug interactions with ART. 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 Details of history on HPI. His girlfriend Radha is assisting him time broker for all his healthcare needs including giving [...] for drug interactions with ART. 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 Details of history on HPI. His girlfriend Radha is assisting him time broker for all his healthcare needs including giving [...] for drug interactions with ART. Recommended resource: https://www.hiv-druginteractions.org/electric organ checker Assessment & Plan (10/17/2021 11:24 AM [...] + Prezcobix [facility] for PJP prophylaxis [...] today Assessment & Plan (07/28/2021 1:01 PM HUMAN SERVICES PROFESSIONAL): Mr. Salcedo is a 66 year old [...] AM CDT): Receives HD MWF at [facility] in [facility], currently via RIJ tunneled catheter but undergoing [...] Assessment & Plan: Recent long hospitalization at [facility] in [place], [place]. I have no records from said hospitalization. He continues to use home oxygen. He appears mildly dyspneic at rest, though his lung examination is presently normal. Pulse oximetry on portable oxygen was acceptable today. Consider referral to autocad technician at a future visit. Home health referral [...] required. Assessment & Plan (07/28/2021 1:02 PM HUMAN SERVICES PROFESSIONAL): Unclear if chronic or cleared infection. Will check HCV today. AIDS (acquired immune deficiency syndrome) 04/09/2009 07/11/2024 Overview (05/18/2024): 04/25/2019 Dr. Dione JESUS
--- OUTSIDE RECORDS SUMMARY | 2024-08-20 09:43 | XMS_ITS | Encounter Summary ---
Author Organization [facility] Healthcare Address [address] [place] [address] Care Team Providers Care Hot Car Operator Name Role Phone Josh Parham MD Primary Care Provider [phone] Matteo Brooks MD Unavailable [phone] Gerson Keith MD Unavailable Cassie Márquez MD Unavailable Beatriz TO MD, Lyman Lansing Unavailable Beatriz TO MD, Seth Vasquez Unavailable David Gorman MD Unavailable [phone] Blayne Sepulveda MD Unavailable [phone] Gerson Forrester DO Unavailable [phone] Idris Sanchez MD Primary Care Provi simba Encounter Details Date Type Department Care Team (Late st Contact Info) Description 01/11/2024 Telephone [facility] [address] [facility] [address] [place] [address] Dany Aguirre MD [address] [facility] [address] [place] [address] Social History Tobacco Use Types Packs/Day Years Used Date Smoking Tobacco: Some Days Cigarettes 0.3 10 Passive Smoke Exposure: Never Smokeless Tobacco: Never Comments:Last cigarette 04/24 0 Alcohol Use Standard Drinks/Week Comments Not Currently 0 (1 standard drink = 0.6 oz pur e alcohol) [facility] Utilities Answer Date Recorded In [...] often do you attend chur ch or nondenominational services? Never 10/11/2023 Do you belong to [...] place to sleep or slept in a jail (including now)? No 08/30/2023 Housing Stability Vital Sign Answer Tk e Recorded In the last 12 months, was t here a time when you were not able to pay the mortgage or rent on time? No 10/11/2023 In the past 12 months, how m any times have you moved where you were living? 1 10/11/2023 At any time in the past 12 m [facility], were you homeless or living in a jail (including now)? No 10/11/2023 Personal Safety Answer Date Recorded Have you ever been in or are you currently in a harmful physical or emotional relationship or is someone making you feel afraid or unsafe? Denies 10/10/2023 Sex and Gender Information Value Date Recorded Sex Assigned at Not on file Legal Sex Male 11:35 AM REMNANTS CUTTER Gender Identity Not on file Sexual Orientation Not on file documented as of this encounter Plan of Treatment Upcoming Encounters Date Type Department Care Team (Latest Contact Info) Description 10/05/2024 7:30 AM CDT Hospital Encounter [facility] OR [address] [place] [address] Seth Henderson IV, MD [address] [place] [address] 10/05/2024 7:30 AM CDT - 10/05/2024 9:00 AM CDT Surgery [facility] OR [address] [place] [address] Seth Henderson IV, MD [address] [place] [address] [place] [address] RECTAL EXAM UNDER ANESTHESIA WITH EXCISION ANAL [...] COVID: Suspected 07/28/2024 07/28/2024 07/29/2024 12:32 AM REMNANTS CUTTER RSV, droplet 07/28/2024 07/28/2024 08/04/2024 3:05 AM CDT documented as of this encounter Care Teams Hot Car Operator Relationship Specialty Start Date End Date Josh Parham MD PCP - General Internal Medicine 06/12/21 05/17/24 Idris Sanchez MD [address] [address] PCP - General Family Practice 05/18/24 Matteo Brooks MD [address] [facility], [address] [address] Medical Oncologist/Stone Chimney Mason Medical Oncology 03/31/23 Gerson Keith MD [address], [facility] [address] [place] [address] Consulting Physician Nephrology 05/07/23 Cassie Márquez MD [address] [address] Consulting Physician Family Medicine 06/25/23 Seth Henderson IV, MD [address] [place] [address] Consulting Physician General Surgery 10/21/23 Seth Henderson IV, MD [address] [place] [address] [phone] Consulting Physician General Surgery 10/21/23 David Gorman MD [address] [place] [phone] Radiation Oncologist Radiation Oncology 10/21/23 Blayne Sepulveda MD [address] [place] [address] [phone] Consulting Physician General Surgery 03/10/24 Gerson Forrester DO [address] [place] [address] [phone] Consulting Physician General Surgery 03/14/24 documented as of this encounter
--- OUTSIDE RECORDS SUMMARY | 2024-08-20 09:43 | XMS_ITS | Encounter Summary ---
Author Organization [facility] Address [address] [place] [address] Phone Care Team Providers Care Toll Test Worker Name Role Phone Josh Parham MD Primary Care Provider David Gorman MD Unavailable [phone] Matteo Brooks MD Unavailable [phone] Gerson Keith MD Unavailable Cassie Márquez MD Unavailable Beatriz TO MD, Lyman Lansing Unavailable Beatriz OT MD, Lyman Lansing Unavailable David Gorman MD Unavailable [phone] Blayne Sepulveda MD Unavailable Gerson Forrester DO Unavailable [phone] Idris Sanchez MD Primary Care Provi simba Encounter Details Date Type Department Care Team (Late st Contact Info) Description 08/30/2023 Conference of Physicians/Providers [facility] Physicians [facility] Oncology [address] [facility] [address] [place] [address] Matteo Brooks MD [address] [facility] [address] [place] [address] Social History Tobacco Use Types Packs/Day Years Used Date Smoking Tobacco: Some Days Cigarettes 0.3 10 Smokeless Tobacco: Never Comments:Last cigarette 04/24 0 Alcohol Use Standard Drinks/Week Comments Not Currently 0 (1 standard drink = 0.6 oz pur e alcohol) [facility] Utilities Answer Date Recorded In the past 12 months has e [employer], gas, oil, or water [employer] threatened to shut off services in your [...] often do you attend chur ch or episcopal services? Never 08/30/2023 Do you belong to [...] place to sleep or slept in a long-term (including now)? No 08/30/2023 Personal Safety Answer Date Recorded Have you ever been in or are you currently in a harmful physical or emotional relationship or is someone making you feel afraid or unsafe? Denies 08/29/2023 Sex and Gender Information Value Date Recorded Sex Assigned at Not on file Legal Sex Male 11:35 AM ELEMENTARY ELL TEACHER Gender Identity Not on file Sexual Orientation Not on file documented as of this encounter Plan of Treatment Upcoming Encounters Date Type Department Care Team (Latest Contact Info) Description 10/05/2024 7:30 AM CDT Hospital Encounter [facility] OR [address] [place] [address] Seth Henderson IV, MD [address] [place] [address] 10/05/2024 7:30 AM CDT - 10/05/2024 9:00 AM CDT Surgery [facility] OR [address] [place] [address] Seth Henderson IV, MD [address] [place] [address] RECTAL EXAM UNDER ANESTHESIA WITH EXCISION ANAL [...] COVID: Suspected 07/28/2024 07/28/2024 07/29/2024 12:32 AM ELEMENTARY ELL TEACHER RSV, droplet 07/28/2024 07/28/2024 08/04/2024 3:05 AM CDT documented as of this encounter Care Teams Toll Test Worker Relationship Specialty Start Date End Date Josh Parham MD PCP - General Internal Medicine 06/12/21 05/17/24 Idris Sanchez MD [address] [address] PCP - General Family Practice 05/18/24 David Gorman MD Radiation Oncologist Radiation Oncology 03/25/23 Matteo Brooks MD [address] [facility], [address] [address] Medical Oncologist/Change Management Analyst Medical Oncology 03/31/23 Gerson Keith MD [address] [facility], [address] [address] Consulting Physician Nephrology 05/07/23 Cassie Márquez MD [address] [facility] [place] [address] Consulting Physician Family Medicine 06/25/23 Seth Henderson IV, MD [address] [place] [address] Consulting Physician General Surgery 10/21/23 Seth Henderson IV, MD [address] [place] [address] [phone] Consulting Physician General Surgery 10/21/23 David Gorman MD [address] [place] [address] [phone] Radiation Oncologist Radiation Oncology 10/21/23 Blayne Sepulveda MD [address] [place] [address] [phone] Consulting Physician General Surgery 03/10/24 Gerson Forrester DO [address] [place] [address] [phone] Consulting Physician General Surgery 03/14/24 documented as of this encounter
[2024-08-20] MEDS: ACETAMINOPHEN 325 MG TABLET 650 MG PO (14:03)
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
--- NOTE | 2024-08-20 16:22 | PHAR ---
Home Meds verified: * Home Med * Fostemsavir [Rukobia] 600 mg tablet extended release 12 hr - take 1 tablet by mouth twice daily * Home Med * Darunavir-Cobicistat [Prezcobix] 800-150 mg-mg tablet - Take 1 tablet by mouth once daily
[2024-08-20] MEDS: SALINE 0.65% NAS SOLN 44 ML BTL 1 SPRAY NASAL (17:15)
[2024-08-20 18:53] LABS: MRSA (PCR) NOT DETECTED (NOT DETECTE)
[2024-08-20] MEDS: metroNIDAZOLE 500 MG/ISO 100ML 500 MG/100 ML BAG 100 MG IVPB (19:03)
[2024-08-20] MEDS: FLUTICASONE/SALMETEROL 115-21 MCG INHALER 1 PUFF 2 PUFF INHALATION (19:44)
[2024-08-20] MEDS: PROMETHAZINE HCL 25 MG/ML AMPUL IM (20:26)
[2024-08-21] VITALS (23 sets, daily range): BP systolic 131–180; BP diastolic 90–112; PULSE 58–97; RESP 10–27; TEMP 36.3–37.1; O2SAT 91–100
--- NOTE | 2024-08-21 04:29 | PCRCNOTE ---
Patient seen by RT for respiratory med administration. Patient presents very confused and lethargic at this time, responding randomly and inappropriately with thank you and OK . He was able to follow commands well enough to complete social media marketer, but possibly due to experience with home med regimen of same administration route. Radha (family/girlfriend) is present and very helpful.
[2024-08-21] MEDS: LORazepam INJ (*CRX) 2 MG/ML VIAL IM (04:54)
[2024-08-21 05:58] LABS: Basophils Percent Auto 0.6 % (0.2-1.2); Eosinophils Percent Auto 0.8 % (0-4.4); Hematocrit 30.6 % (42.0-52.0); Hemoglobin 9.8 g/dL (14.0-18.0); Immature Granulocyte Absolute 0.02 K/mm3 (0.00-0.031); Immature Granulocyte Percent A 0.4 % (0-0.5); Immature Platelet Fraction Pct 2.9 % (0.9-11.2); Lymphocytes Absolute Auto 0.57 K/mm3 (0.9-3.2); Lymphocytes Percent Auto 12.1 % (18.3-44.2); Mean Corpuscular Hemoglobin 30.2 pg (26-34); Mean Corpuscular Volume 94.2 fl (80-100); Monocytes Absolute Auto 0.4 K/mm3 (0.1-0.6); Monocytes Percent Auto 8.1 % (2.6-8.5); Neutrophils Absolute Auto 3.7 K/mm3 (1.3-6.7); Platelet Count Result 93 k/mm3 (150-375); Red Blood Count 3.25 M/mm3 (4.6-6.20); Red Cell Distribution Width 19.4 % (11.5-14.5); White Blood Count 4.7 K/mm3 (4.5-10.0)
[2024-08-21 06:16] LABS: Alanine Aminotransferase 35 U/L (6-50); Albumin Level 4.3 g/dL (3.5-5.1); Alkaline Phosphatase 70 U/L (38-126); Anion Gap 15 mmol/L (4-12); Aspartate Amino Transferase 39 U/L (17-59); Bilirubin,Total 0.7 mg/dL (0.2-1.3); Blood Urea Nitrogen 63 mg/dL (9-20); Calcium 8.8 mg/dL (8.4-10.2); Carbon Dioxide 33 mmol/L (22-30); Chloride 99 mmol/L (98-107); Creatine Kinase 387 U/L (55-170); Estimated CRCL calculation 6 ml/min; Estimated Glomerular Filt Rate 4; Glucose 114 mg/dL (65-110); Magnesium 2.6 mg/dL (1.6-2.3); Phosphorus 5.6 mg/dL (2.5-4.5); Sodium 147 mmol/L (137-145)
[2024-08-21 06:34] LABS: Anisocytosis 1+; Platelet Estimate Decreased (Adequate); Schistocytes None Seen
[2024-08-21 06:55] LABS: Vancomycin Random 19.5 ug/mL (10-20)
--- NOTE | 2024-08-21 07:55 | P.PNCROSS_ITS ---
Event Note Event Note Event Note: Nursing staff called multiple times through the night due to patient's agitatio n. Despite patient being placed in soft restraints the patient was still being impulsive and trying to climb out of bed. He had managed to work himself down to the foot of the bed with his arm still in the soft restraints at the top of the bed. The patient was having impulsivity and was difficult to redirect. Patient had already had 1 fall I spent 35 minutes at bedside trying to redirect the patient myself. After discussion with the patient's significant other at bedside and discussion with nursing staff I ordered a 2 mg dose of IM Ativan because the patient had already pulled out multiple IVs and did not have IV access. I also ordered a CK 3 added to the morning labs. I am concerned that the patient's encephalopathy may be due to baclofen toxicity. Baclofen is already on hold. Patient was having intermittent shaking but abnormal movements and shaking with. When the patient was redirected. The patient did come significantly after Ativan administration. 40 minutes was spent in critical care activities. Due to a high probability of clinically significant, life threatening deterioration, the patient required my highest level of preparedness to intervene emergently and I personally spent this critical care time directly and personally managing the patient. This critical care time included obtaining a history; examining the patient; pulse oximetry; ordering and review of studies; arranging urgent treatment with development of a management plan; evaluation of patient's response to treatment; frequent reassessment; and discussions with other providers. It was exclusive of separately billable procedures and treating other patients and teaching time. Please see Assessment and Plan section and the rest of the note for further information on patient assessment and treatment.
--- NOTE | 2024-08-21 10:35 | PM.PNNEP ---
Subjective Date/time seen: 08/21/24 10:35 Interval history: Follow-up for end stage renal disease on hemodialysis. Objective Data Vital Signs Vital Signs: Vital Signs Temp Pulse Resp BP Pulse Ox O2 Del Method O2 Flow Rate 08/21/24 08:00 93 Room Air 08/21/24 05:18 98 F 82 18 177/95 H 100 08/21/24 04:22 98 F 89 16 151/90 H 91 08/20/24 22:00 97.4 F L 78 20 94/60 L 90 08/20/24 20:00 92 Nasal Cannula 2 08/20/24 19:48 70 16 Intake/Output Intake/Output: Intake & Output 08/18/24 08/19/24 08/20/24 08/21/24 23:59 23:59 23:59 23:59 Intake Total 950.0 307.37 Output Total 500 Balance 950.0 -192.63 Meds/Results Medications: Active Medications Generic Name Dose Route Start Last Admin Trade Name Freq PRN Reason Stop Dose Admin Acetaminophen 650 mg 08/20/24 07:34 08/20/24 14:03 Acetaminophen 325 Mg Tablet PO 650 mg Q4H PRN Administration Mild Pain (1-3) or Fever Albuterol 2.5 mg 08/20/24 15:12 Albuterol Sulfate Neb 2.5 Mg/3 Ml Inh INHALATION Q6HRT PRN Wheezing Albuterol 2 puff 08/20/24 15:12 Albuterol Sulfate (*Sp) Aerosol 1 Puff INHALATION Q6HRT PRN Wheezing Amlodipine Besylate 10 mg 08/20/24 15:15 08/21/24 11:50 Amlodipine Besylate 10 Mg Tablet PO Not Given DAILY JOSÉ MIGUEL Aspirin 81 mg 08/21/24 09:00 08/21/24 11:50 Aspirin 81 Mg Enteric Tablet PO Not Given QAM JOSÉ MIGUEL Calcium Acetate 667 mg 08/20/24 17:00 08/21/24 17:02 Calcium Acetate 667 Mg Tablet PO Not Given TIDWM JOSÉ MIGUEL Carvedilol 25 mg 08/20/24 15:15 08/21/24 11:50 Carvedilol 12.5 Mg Tablet PO Not Given Q12HR JOSÉ MIGUEL Clonidine HCl 0.2 mg 08/20/24 22:00 08/21/24 14:31 Clonidine Hcl 0.2 Mg Tablet PO Not Given Q8HR JOSÉ MIGUEL Dextrose 12.5 gm 08/21/24 14:30 Dextrose 50% 25 Gm/50 Ml Syringe IV PUSH PRN PRN Hypoglycemia Protocol Dolutegravir Sodium 50 mg 08/20/24 21:00 08/21/24 11:51 Dolutegravir Sodium 50 Mg Tablet PO Not Given Q12HR JOSÉ MIGUEL Doxazosin Mesylate 8 mg 08/20/24 21:00 08/20/24 20:33 Doxazosin Mesylate 4 Mg Tablet PO Not Given HS [facility] Entecavir 0.5 mg 08/22/24 14:00 Entecavir 0.5 Mg Tablet PO WEEKLY@1400 JOSÉ MIGUEL Folic Acid 1 mg 08/21/24 09:00 08/21/24 11:51 Folic Acid 1 Mg Tablet PO Not Given DAILY JOSÉ MIGUEL Glucagon 1 mg 08/21/24 14:30 Glucagon For Inj 1 Mg Vial IM PRN PRN Hypoglycemia Protocol Glucose 15 gm 08/21/24 14:30 Glucose Oral Gel 15 Gm Of Glucse In 37.5 Gm Tube PO PRN PRN Hypoglycemia Protocol Hydralazine HCl 20 mg 08/20/24 07:47 08/20/24 14:04 Hydralazine Hcl 20 Mg/Ml Vial IV PUSH 20 mg Q6HR PRN Administration Hypertension Metronidazole 500 mg in 100 mls @ 100 mls/hr 08/20/24 18:00 08/21/24 14:32 Flagyl 500 Mg/Iso Soln 100 Ml IVPB Not Given Q8HR [facility] Albumin Human 50 mls @ 999 mls/hr 08/21/24 06:01 Albutein IVPB 09/20/24 06:00 Q10M PRN HYPOTENSION Cefepime HCl 1 gm in 50 mls @ 100 mls/hr 08/22/24 21:00 Maxipime 1 Gm/Ns 50 Ml IVPB QHS JOSÉ MIGUEL Acyclovir Sodium 425 mg/ 258.5 mls @ 250 mls/hr 08/21/24 15:00 08/21/24 17:20 Dextrose IVPB Infused DAILY@1500 [facility] Infusion Ampicillin Sodium 2 gm in 100 mls @ 200 mls/hr 08/21/24 16:00 Ampicillin 2 Gm/Ns 100 Ml IVPB Q12H JOSÉ MIGUEL Dexmedetomidine HCl 400 mcg in 100 mls @ 4.35 mls/hr 08/21/24 14:25 08/21/24 16:12 Precedex 400 Mcg/100 Ml IV CONT 0.2 mcg/kg/hr .Q23H JOSÉ MIGUEL 4.35 mls/hr Administration Protocol 0.2 MCG/KG/HR Dextrose 1,000 mls @ 100 mls/hr 08/21/24 14:30 Dextrose 5% 1,000 Ml IVPB PRN PRN Hypoglycemia Protocol Insulin Aspart 2 - 5 units 08/21/24 18:00 Insulin Aspart (*Bkc) 100 Units/Ml SUB-Q Q6HR JOSÉ MIGUEL Protocol Labetalol HCl 20 mg 08/21/24 14:31 Labetalol Hcl Inj 100 Mg/20 Ml Vial IV PUSH Q4H PRN SBP > 160 and HR> 60 -1st choice Losartan Potassium 100 mg 08/21/24 09:00 08/21/24 11:51 Losartan Potassium 100 Mg Tablet PO Not Given DAILY JOSÉ MIGUEL Minoxidil 5 mg 08/20/24 21:00 08/21/24 11:52 Minoxidil 2.5 Mg Tablet PO Not Given Q12HR [facility] Multi-Ingred Cream/Lotion/Oil/Oint 1 applic 08/21/24 21:00 Mineral Oil/White Petrolatum Ointment EACH EYE Q12HR JOSÉ MIGUEL * Home Med * 1 tablet 08/21/24 09:00 08/21/24 11:51 Darunavir-Cobicistat PO 09/20/24 08:59 Not Given [Prezcobix] 800-150 DAILY JOSÉ MIGUEL Mg-Mg Tablet * Home Med * 600 mg 08/20/24 17:00 08/21/24 17:02 Fostemsavir [Rukobia PO 09/19/24 16:59 Not Given ] 600 Mg Tablet BID JOSÉ MIGUEL Extended Release 12 Hr Ondansetron HCl 4 mg 08/20/24 07:34 Ondansetron Inj 4 Mg/2 Ml Vial IV PUSH Q6H PRN Nausea And Vomiting Pantoprazole Sodium 40 mg 08/21/24 09:00 08/21/24 11:52 Pantoprazole 40 Mg Tablet PO Not Given QAM JOSÉ MIGUEL Fluticasone/Salmeterol 2 puff 08/20/24 20:00 08/21/24 09:17 Fluticasone/Salmeterol 115-21 Mcg Inhaler 1 Puff INHALATION Not Given Q12HRT [facility] Senna/Docusate Sodium 2 tab 08/20/24 21:00 08/21/24 11:51 Senna/Docusate Sodium Tablet PO Not Given Q12HR JOSÉ MIGUEL Sertraline HCl 50 mg 08/21/24 09:00 08/21/24 11:52 Sertraline Hcl 50 Mg Tablet PO Not Given DAILY JOSÉ MIGUEL Sodium Chloride 1 spray 08/20/24 17:00 08/21/24 14:31 Saline 0.65% Gelacio Soln 44 Ml Btl NASAL Not Given QID JOSÉ MIGUEL Trazodone HCl 25 mg 08/20/24 21:00 08/20/24 20:34 Trazodone Hcl 25 Mg Tablet PO Not Given HS JOSÉ MIGUEL Vancomycin HCl 1 each 08/19/24 22:39 Vancomycin For Hemodialysis IVPB PRN PRN Vancomycin Protocol Vitamin D 5,000 units 08/21/24 09:00 08/21/24 11:50 Cholecalciferol 5,000 Units Tablet PO Not Given DAILY [facility] Radiology Results: ITS Impressions Head CT 08/20/24 07:33 Impression: No acute intracranial hemorrhage or suspicious mass effect. Chest/Abdomen/Pelvis CT 08/20/24 07:41 IMPRESSION: Mural thickening within the colon, with diffuse anasarca. Chest X-Ray 08/21/24 13:54 Impression: 1: Moderate cardiomegaly. Labs Labs: Laboratory Tests 08/21/24 05:23 WBC 4.7 Hgb 9.8 L Hct 30.6 L Plt Count 93 L Sodium 147 H Potassium 4.0 Chloride 99 Carbon Dioxide 33 H Anion Gap 15 H BUN 63 H D Creatinine 11.68 H Estim Creat Clear Calc 6 Estimated GFR 4 L Glucose 114 H Calcium 8.8 Phosphorus 5.6 H Magnesium 2.6 H Total Bilirubin 0.7 AST 39 ALT 35 Alkaline Phosphatase 70 Total Creatine Kinase 387 H Total Protein 8.0 Albumin 4.3 Microbiology 08/20/24 01:45 Blood Blood Culture - Preliminary 08/20/24 02:41 Blood Blood Culture - Preliminary
[2024-08-21 11:36] LABS: Hepatitis B Surface Antigen Positive (Negative)
[2024-08-21 11:53] LABS: Hepatitis B Surface Anti Res Negative
--- NOTE | 2024-08-21 12:30 | P.PNIM_ITS ---
Progress Note: A&P Assessment and Plan (1) Encephalopathy acute: Code(s): G93.40 - Encephalopathy, unspecified Status: Acute Assessment and Plan: Patient with confusion not following commands or answering appropriately. Normally alert and oriented x4 and ambulates on his own Not missed dialysis treatments. He is compliant with his HIV meds and that his CD4 count is normal and HIV undetectable per family. No alcohol or drug use. No chronic narcotic or benzo use with abrupt wean. He was started on Baclofen last week and family noted mental status changes began a short time after starting this medication. CT Head with no intracranial process. Lipase elevated to 1046. CT Ch/Abd/Pelvis showing anasraca, mural thickening within the colon, clear lungs, limited evaluation of pancreas Ammonia <9. ETOH <10. Viral panel negative. BCx NGTD. MRSA screen negative. Started on IV cefepime and Vanc Ammonia level: WNL Consider related to meningitis or encephilitis. Consider related to baclopfen use in a dialysis patient. Plan for LP when able. Add Ampicillin, HSV. Convert to meningitic dosing. Cryptococcal Ag ordered. PharmD ID consult Moved to ICU for Precedex drip. Discussed with sql programmer. (2) End-stage renal disease on hemodialysis: Code(s): N18.6 - End stage renal disease; Z99.2 - Dependence on renal dialysis Status: Acute Assessment and Plan: Patient with ESRD on hemodialysis Nephrology consulted HD catheter needs to be replaced now. Not acidotic or fluid overloaded. Potassium okay. Discussed with surgery. Plan for tunneled HD catheter replacement tomorrow Will try to get LP while patient is sedated. (3) Hypertension: Code(s): I10 - Essential (primary) hypertension Status: Chronic Assessment and Plan: Patient with uncontrolled HTN. He takes amlodipine, carvedilol, clonidine, doxazosin, losartan, minoxidil He has taken clonidine for since at least last year so do not feel contributing to his confusion. Not able to take oral meds. Hydralazine available as needed. (4) Anemia: Qualifiers: Anemia type: unspecified type Qualified Code(s): D64.9 - Anemia, unspecified Code(s): D64.9 - Anemia, unspecified Status: Chronic Assessment and Plan: Secondary to ESRD/HIV/hepatitis Hgb stable 9-10 range Monitor and transfuse PRBC if Hgb <7.0 (5) HIV (human immunodeficiency virus infection): Code(s): B20 - Human immunodeficiency virus [HIV] disease Status: Chronic Assessment and Plan: Patient has been compliant with his medications and appointments. Family state his CD4 count normal and HIV undetectable. Resume Prezcobix, Tivicay, and Rukobia Check levels. (6) Thrombocytopenia associated with AIDS: Code(s): B20 - Human immunodeficiency virus [HIV] disease; D69.59 - Other secondary thrombocytopenia Status: Acute Assessment and Plan: Patient has a chronic thrombocytopenia. Counts 75K on admission but deandra today. Follow (7) COPD (chronic obstructive pulmonary disease): Qualifiers: COPD type: COPD with acute lower respiratory infection Qualified Code(s): J44.0 - Chronic obstructive pulmonary disease with (acute) lower respiratory infection Code(s): J44.9 - Chronic obstructive pulmonary disease, unspecified Status: Chronic Assessment and Plan: Stable. No wheezing appreciated. Continue inhalers PRN. Continue Advair Plan Code status: Full code DVT prophylaxis: SCD Subjective Date/time seen: 08/21/24 12:30 Interval history: 69yo male with HIV, COPD, hepatitis and ESRD who presented to the emergency department after significant reported altered mental status. Patient is awake but mostly nonverbal and unable to provide hx. Exam Narrative: AF 98 177/95 82 18 100% 2L Gen - agitated but calmer then last night Neck - no meningismus Chest - clear to quiet respirations. Right upper chest HD catheter in place CV - RRR S1/S2 Abd - soft, no apparent tenderness. +BS Ext - no edema. Neuro - awake. nonverbal. does not follow commands. BLUE. Skin - wram and dry Called to the room later in the day after patient removed his tunneled dialaysis catheter. His family had left the room prior to the event. Patient with bleeding but now has stopped. Wound inspected showing protuberance of fatty tissue from the old site with residual suture still in place. Objective Data Vital Signs Vital Signs: Vital Signs - 24 hr 08/20/24 13:49 08/20/24 15:30 08/20/24 19:48 Temperature 97.7 F Pulse Rate 79 70 Respiratory Rate 18 16 Blood Pressure 186/92 H 177/92 H Pulse Oximetry 98 Oxygen Delivery Oxygen Flow Rate 08/20/24 20:00 08/20/24 22:00 08/21/24 04:22 Temperature 97.4 F L 98 F Pulse Rate 78 89 Respiratory Rate 20 16 Blood Pressure 94/60 L 151/90 H Pulse Oximetry 92 90 91 Oxygen Delivery Nasal Cannula Oxygen Flow Rate 2 08/21/24 05:18 Temperature 98 F Pulse Rate 82 Respiratory Rate 18 Blood Pressure 177/95 H Pulse Oximetry 100 Oxygen Delivery Oxygen Flow Rate Intake/Output Intake/Output: Intake & Output 08/18/24 08/19/24 08/20/24 08/21/24 23:59 23:59 23:59 23:59 Intake Total 950.0 Output Total 500 Balance 950.0 -500 Meds/Results Medications: Active Medications Generic Name Dose Route Start Last Admin Trade Name Freq PRN Reason Stop Dose Admin Acetaminophen 650 mg 08/20/24 07:34 08/20/24 14:03 Acetaminophen 325 Mg Tablet PO 650 mg Q4H PRN Administration Mild Pain (1-3) or Fever Albuterol 2.5 mg 08/20/24 15:12 Albuterol Sulfate Neb 2.5 Mg/3 Ml Inh INHALATION Q6HRT PRN Wheezing Albuterol 2 puff 08/20/24 15:12 Albuterol Sulfate (*Sp) Aerosol 1 Puff INHALATION Q6HRT PRN Wheezing Amlodipine Besylate 10 mg 08/20/24 15:15 08/21/24 11:50 Amlodipine Besylate 10 Mg Tablet PO Not Given DAILY JOSÉ MIGUEL Aspirin 81 mg 08/21/24 09:00 08/21/24 11:50 Aspirin 81 Mg Enteric Tablet PO Not Given QAM JOSÉ MIGUEL Calcium Acetate 667 mg 08/20/24 17:00 08/21/24 11:49 Calcium Acetate 667 Mg Tablet PO Not Given TIDWM JOSÉ MIGUEL Carvedilol 25 mg 08/20/24 15:15 08/21/24 11:50 Carvedilol 12.5 Mg Tablet PO Not Given Q12HR JOSÉ MIGUEL Clonidine HCl 0.2 mg 08/20/24 22:00 08/21/24 04:56 Clonidine Hcl 0.2 Mg Tablet PO Not Given Q8HR JOSÉ MIGUEL Cyclobenzaprine HCl 5 mg 08/20/24 21:00 08/20/24 20:32 Cyclobenzaprine Hcl 5 Mg Tablet PO Not Given HS JOSÉ MIGUEL Dolutegravir Sodium 50 mg 08/20/24 21:00 08/21/24 11:51 Dolutegravir Sodium 50 Mg Tablet PO Not Given Q12HR JOSÉ MIGUEL Doxazosin Mesylate 8 mg 08/20/24 21:00 08/20/24 20:33 Doxazosin Mesylate 4 Mg Tablet PO Not Given HS JOSÉ MIGUEL Entecavir 0.5 mg 08/22/24 14:00 Entecavir 0.5 Mg Tablet PO WEEKLY@1400 JOSÉ MIGUEL Folic Acid 1 mg 08/21/24 09:00 08/21/24 11:51 Folic Acid 1 Mg Tablet PO Not Given DAILY JOSÉ MIGUEL Hydralazine HCl 20 mg 08/20/24 07:47 08/20/24 14:04 Hydralazine Hcl 20 Mg/Ml Vial IV PUSH 20 mg Q6HR PRN Administration Hypertension Cefepime HCl 0.5 gm/ Sodium 50 mls @ 100 mls/hr 08/20/24 21:00 08/20/24 23:50 Chloride IVPB Not Given Q24H JOSÉ MIGUEL Metronidazole 500 mg in 100 mls @ 100 mls/hr 08/20/24 18:00 08/21/24 04:55 Flagyl 500 Mg/Iso Soln 100 Ml IVPB Not Given Q8HR JOSÉ MIGUEL Albumin Human 50 mls @ 999 mls/hr 08/21/24 06:01 Albutein IVPB 09/20/24 06:00 Q10M PRN HYPOTENSION Vancomycin HCl 750 mg in 250 mls @ 250 mls/hr 08/21/24 16:00 Vancomycin 750 Mg/Ns 250 Ml IVPB 08/21/24 16:59 ONCE ONE Losartan Potassium 100 mg 08/21/24 09:00 08/21/24 11:51 Losartan Potassium 100 Mg Tablet PO Not Given DAILY JOSÉ MIGUEL Minoxidil 5 mg 08/20/24 21:00 08/21/24 11:52 Minoxidil 2.5 Mg Tablet PO Not Given Q12HR JOSÉ MIGUEL * Home Med * 1 tablet 08/21/24 09:00 08/21/24 11:51 Darunavir-Cobicistat PO 09/20/24 08:59 Not Given [Prezcobix] 800-150 DAILY JOSÉ MIGUEL Mg-Mg Tablet * Home Med * 600 mg 08/20/24 17:00 08/21/24 11:51 Fostemsavir [Rukobia PO 09/19/24 16:59 Not Given ] 600 Mg Tablet BID JOSÉ MIGUEL Extended Release 12 Hr Ondansetron HCl 4 mg 08/20/24 07:34 Ondansetron Inj 4 Mg/2 Ml Vial IV PUSH Q6H PRN Nausea And Vomiting Pantoprazole Sodium 40 mg 08/21/24 09:00 08/21/24 11:52 Pantoprazole 40 Mg Tablet PO Not Given QAM JOSÉ MIGUEL Fluticasone/Salmeterol 2 puff 08/20/24 20:00 08/21/24 09:17 Fluticasone/Salmeterol 115-21 Mcg Inhaler 1 Puff INHALATION Not Given Q12HRT JOSÉ MIGUEL Senna/Docusate Sodium 2 tab 08/20/24 21:00 08/21/24 11:51 Senna/Docusate Sodium Tablet PO Not Given Q12HR JSOÉ MIGUEL Sertraline HCl 50 mg 08/21/24 09:00 08/21/24 11:52 Sertraline Hcl 50 Mg Tablet PO Not Given DAILY [facility] Sodium Chloride 1 spray 08/20/24 17:00 08/21/24 11:52 Saline 0.65% Gelacio Soln 44 Ml Btl NASAL Not Given QID JOSÉ MIGUEL Trazodone HCl 25 mg 08/20/24 21:00 08/20/24 20:34 Trazodone Hcl 25 Mg Tablet PO Not Given HS JOSÉ MIGUEL Vancomycin HCl 1 each 08/19/24 22:39 Vancomycin For Hemodialysis IVPB PRN PRN Vancomycin Protocol Vitamin D 5,000 units 08/21/24 09:00 08/21/24 11:50 Cholecalciferol 5,000 Units Tablet PO Not Given DAILY [facility] Radiology Results: ITS Impressions Head CT 08/20/24 07:33 Impression: No acute intracranial hemorrhage or suspicious mass effect. Chest/Abdomen/Pelvis CT 08/20/24 07:41 IMPRESSION: Mural thickening within the colon, with diffuse anasarca. Chest X-Ray 08/20/24 14:21 IMPRESSION: No focal infiltrate or effusion. Labs Labs: Laboratory Results - last 24 hr 08/20/24 08/21/24 08/21/24 17:36 05:22 05:23 WBC 4.7 RBC 3.25 L Hgb 9.8 L Hct 30.6 L MCV 94.2 MCH 30.2 MCHC 32.0 RDW 19.4 H Plt Count 93 L MPV 10.0 Immature Gran % (Auto) 0.4 Neut % (Auto) 78.0 H Lymph % (Auto) 12.1 L Baldwin % (Auto) 8.1 Eos % (Auto) 0.8 Baso % (Auto) 0.6 Lymph # (Auto) 0.57 L Baldwin # (Auto) 0.4 Eos # (Auto) 0.0 Baso # (Auto) 0.0 Abs Immat Gran (auto) 0.02 Absolute Neuts (auto) 3.7 Absolute Nucleated RBC 0.000 Band Neutrophils % Not Reportable Nucleated RBC % 0.0 Platelet Estimate Decreased % Immature Plt Fraction 2.9 Anisocytosis 1+ Schistocytes None seen Sodium 147 H Potassium 4.0 Chloride 99 Carbon Dioxide 33 H Anion Gap 15 H BUN 63 H D Creatinine 11.68 H Estim Creat Clear Calc 6 Estimated GFR 4 L Glucose 114 H Calcium 8.8 Phosphorus 5.6 H Magnesium 2.6 H Total Bilirubin 0.7 AST 39 ALT 35 Alkaline Phosphatase 70 Total Creatine Kinase 387 H Total Protein Albumin Nasal MRSA (PCR) Not detected Random Vancomycin Hep Bs Antigen Positive Hep Bs Antibody Negative 08/21/24 05:23 WBC RBC Hgb Hct MCV MCH MCHC RDW Plt Count MPV Immature Gran % (Auto) Neut % (Auto) Lymph % (Auto) Baldwin % (Auto) Eos % (Auto) Baso % (Auto) Lymph # (Auto) Baldwin # (Auto) Eos # (Auto) Baso # (Auto) Abs Immat Gran (auto) Absolute Neuts (auto) Absolute Nucleated RBC Band Neutrophils % Nucleated RBC % Platelet Estimate % Immature Plt Fraction Anisocytosis Schistocytes Sodium Potassium Chloride Carbon Dioxide Anion Gap BUN Creatinine Estim Creat Clear Calc Estimated GFR Glucose Calcium Phosphorus Magnesium Total Bilirubin AST ALT Alkaline Phosphatase Total Creatine Kinase Cancelled Total Protein 8.0 Albumin 4.3 Nasal MRSA (PCR) Random Vancomycin 19.5 Hep Bs Antigen Hep Bs Antibody
--- NOTE | 2024-08-21 13:35 | P.PNINF_ITS ---
Pharmacy ID Consult Stewardship Interventions Pharmacy ID Note: Subjective Pharmacy was consulted by Dr. Kennedy regarding infectious diseases for Thompson Salcedo. Thompson Salcedo is a 69 year old M with concerns regarding potential [employer] infection. Background The patient is currently receiving Cefepime 0.5 g daily (D3), metronidazole 500 mg IV q8h (D2), and vancomycin pharmacy to dose for hemodialysis (D2). The patient's PMH includes HIV, hepatitis B, and ESRD on HD among others mentioned in provider notes. Additionally, patient presented with altered mental status. Patient has history of MRSA BSI from 01/16/2024. Flu/RSV/COVID PCR is negative. MRSA PCR is negative. No history of any CD4 counts found in labs, and last viral load on record was in April 2021. CT Abd/Pelvis on 08/20 showed mural thickening in the colon. Assessment/Recommendation/Discussion Spoke briefly with provider. Patient situation may not be related to infection, but infection not excluded, especially given potential immunosuppression from HIV given that no recent labs for viral load or CD4 are available. Additionally, Hemodialysis schedule may be affected by lack of access for HD at this time. For the coverage of bacterial meningitis the patient's antibacterial regimen was altered. Cefepime dose was increased to 1g daily, and ampicillin 2g q12h was initiated. Metronidazole continues for potential colitis. Vancomycin therapy continued. Adjust dosing for HD. For potential HSV encephalitis, acyclovir 5 mg / kg q24h was initiated - dose adjusted for HD. Hepatitis B - outpatient - patient was on entecavir and this has been continued. HIV - outpatient - patient was on dolutegravir, fostemavir, and darunavir/cobicistat. This has been continued. *Please note cobicistat is a potent CY inhibitor* Cryptococcal serum antigen has been ordered by consulting provider as well as HIV viral load and CD4. Please ensure resumption of HD to avoid adverse effects related to the many renally dose adjusted medications. If LP is done please consider full infective work up including cryptococcosis serologies and immunolgies In case cryptococcal infection coverage is needed, the following regimen is recommended for induction therapy given that flucytosine is not available at this institution and that timely TDM on flucytosine is also not likely available: Liposomal amphotericin B 3-4 mg/kg q24h - (261-348 mg) rounded to 300 mg (3.45 mg/kg) q 24h. Ensure use of amphotericin order set for appropriate pre and post medication orders as well as labs for AE monitoring Fluconazole IV or PO 800 mg-1200 mg - DOSE ADJUSTED FOR HD TO 800-1200 mg Post HD on HD days only - 800 mg post HD on HD days During this 14 day induction treatment phase - follow up LP recommended on days 7 and 14 to document clearance. if ICP increased - daily LP is recommended until ICP is normalized. If culture negative and 14 days have elapsed, consolidation therapy can begin. This would be at least 8 weeks with a single PO agent like fluconazole, followed by a maintenance course with a single PO agent for >1 year like fluconazole. For more information: https://clinicalinfo.hiv.gov/en/guidelines/lug-sxlpiuyf-dmmkzsbvla-rwrza-snu-iou jpcauzi-ebwykjkkthpwo-zhwggvdrtc/cryptococcosis If additional information comes to light, please don't hesitate to reach out. Will continue to follow. Thank you for the interesting consult. Be Day, PharmD Infectious Disease/Antimicrobial Stewardship Pharmacist 08/21/24; 1335 WBC 4.7 K/mm3 (4.5-10.0) 08/21/24 05:23 Creatinine 11.68 mg/dL (0.7-1.3) H 08/21/24 05:23 Estim Creat Clear Calc 6 ml/min 08/21/24 05:23
[2024-08-21 13:41] LABS: Hemoglobin 10.1 g/dL (14.0-18.0)
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
--- NOTE | 2024-08-21 14:55 | PC.NURSE ---
At approximately 1256, patients significant other came to the nursing station yelling: He pulled out his catheter! When entering patients room, patient was found in bed, restraints in place at both wrists, and his dialysis catheter laying in bed next to him. His partner explained she had fallen asleep and he had pulled out his catheter. Wound was not actively bleeding at this time, dressing with Tegaderm was applied, charge nurse and hospitalist notified.
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
[2024-08-21] MEDS: SODIUM CHLORIDE 0.9% IVPB (15:58)
[2024-08-21] MEDS: DEXMEDETOMIDINE IVPB (15:58)
[2024-08-21] MEDS: dexmedeTOMIDine 400 MCG/100 ML 400 MCG/100 ML BAG IV CONT (16:12)
[2024-08-21] MEDS: ACYCLOVIR SODIUM IVPB (16:13)
[2024-08-21] MEDS: DEXTROSE 5% IVPB (16:13)
[2024-08-21] MEDS: WATER IVPB (16:13)
[2024-08-21 18:26] LABS: Glucose Point of Care 96 mg/dl (65-105)
[2024-08-21] MEDS: LABETALOL HCL INJ 100 MG/20 ML VIAL 20 MG IV PUSH (18:47)
[2024-08-21] MEDS: FLUTICASONE/SALMETEROL 115-21 MCG INHALER 1 PUFF 2 PUFF INHALATION (21:21)
--- NOTE | 2024-08-21 21:21 | PCRCNOTE ---
Pt unable to perform mdi/dpi technique
[2024-08-21] MEDS: dexmedeTOMIDine 400 MCG/100 ML 400 MCG/100 ML BAG 15.23 MCG IV CONT (22:32)
[2024-08-21 23:46] LABS: Glucose Point of Care 88 mg/dl (65-105)
[2024-08-22] VITALS (72 sets, daily range): BP systolic 68–186; BP diastolic 50–109; PULSE 52–107; RESP 10–30; TEMP 35.7–37.1; O2SAT 92–100
[2024-08-22] MEDS: LABETALOL HCL INJ 100 MG/20 ML VIAL 20 MG IV PUSH ×2 (00:26→04:05)
[2024-08-22] MEDS: AMPICILLIN 2 GM/NS 100 ML 2 GM/100 ML BAG IVPB ×2 (03:51→17:32)
[2024-08-22 04:47] LABS: Basophils Percent Auto 1.1 % (0.2-1.2); Eosinophils Absolute Auto 0.2 K/mm3 (0-0.3); Eosinophils Percent Auto 4.3 % (0-4.4); Hematocrit 32.4 % (42.0-52.0); Hemoglobin 10.2 g/dL (14.0-18.0); Immature Granulocyte Absolute 0.02 K/mm3 (0.00-0.031); Immature Granulocyte Percent A 0.5 % (0-0.5); Immature Platelet Fraction Pct 3.3 % (0.9-11.2); Lymphocytes Absolute Auto 0.85 K/mm3 (0.9-3.2); Lymphocytes Percent Auto 22.7 % (18.3-44.2); Mean Corpuscular HGB Conc 31.5 g/dl (32-36); Mean Corpuscular Hemoglobin 30.5 pg (26-34); Mean Platelet Volume 10.9 fl (7.4-10.4); Monocytes Absolute Auto 0.4 K/mm3 (0.1-0.6); Monocytes Percent Auto 10.4 % (2.6-8.5); Neutrophils Absolute Auto 2.3 K/mm3 (1.3-6.7); Platelet Count Result 84 k/mm3 (150-375); Red Blood Count 3.34 M/mm3 (4.6-6.20); Red Cell Distribution Width 19.9 % (11.5-14.5); White Blood Count 3.7 K/mm3 (4.5-10.0)
[2024-08-22 05:00] LABS: Alanine Aminotransferase 38 U/L (6-50); Albumin Level 4.5 g/dL (3.5-5.1); Alkaline Phosphatase 68 U/L (38-126); Anion Gap 15 mmol/L (4-12); Aspartate Amino Transferase 44 U/L (17-59); Bilirubin,Total 0.8 mg/dL (0.2-1.3); Blood Urea Nitrogen 71 mg/dL (9-20); Calcium 8.6 mg/dL (8.4-10.2); Carbon Dioxide 29 mmol/L (22-30); Chloride 103 mmol/L (98-107); Estimated CRCL calculation 6 ml/min; Estimated Glomerular Filt Rate 4; Glucose 102 mg/dL (65-110); Magnesium 2.6 mg/dL (1.6-2.3); Potassium 5.2 mmol/L (3.4-5.0); Sodium 147 mmol/L (137-145)
[2024-08-22 05:12] LABS: Anisocytosis 1+; Platelet Estimate Decreased (Adequate); Schistocytes Rare
[2024-08-22] MEDS: cloNIDine HCL 0.2 MG TABLET PO (05:49)
[2024-08-22] MEDS: metroNIDAZOLE 500 MG/ISO 100ML 500 MG/100 ML BAG 100 MG IVPB ×3 (05:50→22:17)
[2024-08-22] MEDS: dexmedeTOMIDine 400 MCG/100 ML 400 MCG/100 ML BAG 13.05 MCG IV CONT (05:53)
--- NOTE | 2024-08-22 08:22 | PCRCNOTE ---
mdi not given. Pt not compliant. RN aware.
[2024-08-22] MEDS: dexmedeTOMIDine 400 MCG/100 ML 400 MCG/100 ML BAG 19.58 MCG IV CONT (11:42)
[2024-08-22] MEDS: hydrALAZINE HCL 20 MG/ML VIAL IV PUSH (11:44)
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
[2024-08-22 11:59] LABS: Glucose Point of Care 84 mg/dl (65-105)
--- NOTE | 2024-08-22 12:19 | WPDHPUPDATE1 ---
History and Physical Update Update Date/Time: 08/22/24 12:19 History and Physical has been reviewed, including an updated exam of the patient. There are NO changes in the patient's condition. Risks, benefits, and alternatives have been discussed and questions answered. Patient agrees to proceed with procedure.
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
[2024-08-22] MEDS: HEPARIN SODIUM 5,000 UNITS/ML VIAL 5000 UNITS IRRIGATION (13:12)
[2024-08-22] MEDS: HEPARIN SODIUM, PORCINE 10,000 UNITS/10 ML VIAL 10000 UNITS IRRIGATION (13:16)
--- NOTE | 2024-08-22 13:41 | W.PM.PROC2 ---
Procedure Note - Detailed Date of Procedure 08/22/24 Pre-op Diagnosis End-stage renal disease, encephalopathy Post-op Diagnosis Same Procedure Performed placement right internal jugular tunnel dialysis catheter under ultrasound and fluoroscopic guidance Surgeon Jeanne Christianson MD Anesthesia General Indications 69-year-old male with multiple medical issues including end-stage renal disease, are present dislodged right tunneled dialysis catheter Findings 1st stick right IJ under ultrasound guidance Description of Procedure Patient was taken to the operating room and placed in the supine position. After adequate induction of general anesthesia, the patient was prepped and draped in normal sterile fashion. A time-out was then done to verify the patient's identity as well as the procedure being performed. I began by using the SonoSite and locating the right internal jugular vein. Once this was done, I localized the overlying skin. I then made a small incision in the skin. I then gained access into the right internal jugular vein with an 18 gauge needle. At this point, I threaded the guidewire into the right internal jugular vein. Placement of the guidewire was confirmed by both ultrasound and fluoroscopic guidance. I then went ahead and measured the 28 cm tunneled dialysis catheter to our stick site in the right neck. I then localized the tract going from the right chest to the right neck. I then made a small incision in the right chest and tunneled the catheter to the right neck. I then serially dilated the right internal jugular vein under fluoroscopic guidance. Once adequately dilated, I placed the dilating sheath over the guidewire into the right internal jugular vein under fluoroscopic visualization. Once this was noted to be in good position, I removed both the guidewire and dilator, now just leaving the sheath in the vein. I then went ahead and fed the previously tunneled catheter into the sheath. Once the catheter was fed and positioned correctly, I went ahead and peeled the sheath away. Final fluoroscopic view showed the catheter in good position from its insertion point in the right chest to its termination in the atrial caval junction. It was noted there was no kinking of the catheter. I was able to easily draw and flush from both ports of the catheter. I placed 2.2 and 2.3 cc of final heparin flush into each port as marked. The catheter was then sutured into place and the incision in the neck was closed with 4 O Monocryl subcuticular suture. The patient tolerated the procedure well and will be transferred to the ICU in critical condition. Sterile dressing was placed on the catheter. Implants 28 cm tunneled hemodialysis catheter Estimated Blood Loss 10 Drains No Packing No Pathology None sent Complications No immediate complications Condition Stable Disposition ICU [facility] Billing Surgery - Charge Forward: Surgery Billing
[2024-08-22] MEDS: PROPOFOL IV EMULSION 100 ML 10.12 MG IV CONT (14:13)
[2024-08-22] MEDS: MIDAZOLAM HCL (*CRX) 2 MG/2 ML VIAL 4 MG IV PUSH (14:18)
[2024-08-22] MEDS: FENTANYL 2,500MCG/NS250ML(*CRX 2,500 MCG/250 ML BAG IV CONT (14:50)
[2024-08-22 14:59] LABS: HIV 1 RNA PCR <1.30 DETECTED (NOT DETECTED); HIV 1 RNA PCR <20 DETECTED copies/mL (NOT DETECTED)
[2024-08-22 15:38] LABS: Triglycerides 68 mg/dL (<150)
[2024-08-22 15:51] LABS: Glucose CSF 59 mg/dL (40-70); Total Protein CSF 94 mg/dL (12-60)
[2024-08-22 16:48] LABS: Appearance CSF Clear (Clear); CSF source CSF; Color CSF Colorless (Colorless); Lymphocytes CSF 90 % (40-80); Macrophages CSF 8; Monocytes CSF 2 % (15-45); Neutrophils CSF 0 % (0-6); Nucleated Cell CSF 6 /uL (0-5); Red Blood Cell CSF 2 (0-2)
[2024-08-22] MEDS: PROPOFOL IV EMULSION 100 ML 20.23 MG IV CONT (17:23)
[2024-08-22] MEDS: MIDAZOLAM 100MG/NS 100ML(*CRX) 100 MG/100 ML BAG IV CONT (17:35)
[2024-08-22] MEDS: PHENYLEPHRINE HCL INJ 50 MG in DEXTROSE 5% IN WATER 250 ML/245 ML BAG 12 ML IV CONT (17:40)
[2024-08-22] MEDS: ALBUMIN HUMAN 25% 12.5 GM/50ML 50 ML IVPB (17:52)
[2024-08-22 17:57] LABS: Glucose Point of Care 81 mg/dl (65-105)
[2024-08-22 17:58] LABS: Alveolar/Arterial O2 Gradient 116.6 mmHg; Base Excess ABG 1.9 mEq/l (+/-2.0); Fractional Inspired Oxygen 35 %; HCO3 ABG 26.8 mEq/l (22.0-26.0); Oxygen Content ABG 12.1 %vol (16.0-22.0); Oxygen Saturation ABG 96.3 % (95.0-100.0); Oxyhemoglobin 92.9 % THb (90.0-100.0); PO2 FiO2 Ratio Arterial Blood 2.37 %; Total Hemoglobin 9.2 g/dL (12.0-18.0); pH ABG 7.412 (7.350-7.450)
[2024-08-22 17:59] LABS: Device VENTILATOR; Modified Allen's Test Pass; Site Drawn RIGHT RADIAL
[2024-08-22 18:00] LABS: Arterial Blood Gas PEEP 5 cmH2O; Arterial Blood Gas Tidal Volume 450 ml; Arterial Blood Gas Vent Mode CMV; Arterial Blood Gas Ventilator rate 18 /MIN
--- NOTE | 2024-08-22 18:11 | PM.PNNEP ---
Subjective Date/time seen: 08/22/24 18:11 Objective Data Vital Signs Vital Signs: Vital Signs - 24 hr 08/22/24 09:00 08/22/24 10:00 08/22/24 10:00 Temperature 97.7 F Pulse Rate 61 82 57 L Respiratory Rate 13 18 Blood Pressure 174/97 H Pulse Oximetry 100 Oxygen Delivery Oxygen Flow Rate Fraction of Inspired Oxygen 08/22/24 11:30 08/22/24 11:30 08/22/24 11:42 Temperature 97.7 F 98.7 F Pulse Rate 62 77 81 Respiratory Rate 18 18 18 Blood Pressure 186/98 H 174/108 H Pulse Oximetry 100 100 Oxygen Delivery Nasal Cannula Oxygen Flow Rate 2 Fraction of Inspired Oxygen 08/22/24 11:42 08/22/24 12:24 08/22/24 14:00 Temperature Pulse Rate 81 70 Respiratory Rate 18 Blood Pressure 154/97 H Pulse Oximetry Oxygen Delivery Oxygen Flow Rate Fraction of Inspired Oxygen 08/22/24 14:00 08/22/24 14:13 08/22/24 14:20 Temperature 97.9 F Pulse Rate 70 87 92 Respiratory Rate 18 13 15 Blood Pressure 111/81 Pulse Oximetry 100 Oxygen Delivery Oxygen Flow Rate Fraction of Inspired Oxygen 08/22/24 14:25 08/22/24 14:29 08/22/24 14:50 Temperature Pulse Rate 99 96 96 Respiratory Rate 15 15 Blood Pressure Pulse Oximetry 92 Oxygen Delivery Mechanical Ventilation Oxygen Flow Rate Fraction of Inspired Oxygen 60 08/22/24 14:52 08/22/24 15:00 08/22/24 16:00 Temperature Pulse Rate 98 70 Respiratory Rate 16 19 Blood Pressure Pulse Oximetry 100 Oxygen Delivery Mechanical Ventilation Oxygen Flow Rate Fraction of Inspired Oxygen 08/22/24 16:00 08/22/24 16:00 08/22/24 16:00 Temperature 98.2 F Pulse Rate 73 95 Respiratory Rate 17 17 Blood Pressure 157/109 H Pulse Oximetry 95 Oxygen Delivery Oxygen Flow Rate Fraction of Inspired Oxygen 60 08/22/24 16:00 08/22/24 16:00 08/22/24 16:45 Temperature Pulse Rate 95 73 Respiratory Rate 17 Blood Pressure Pulse Oximetry Oxygen Delivery Oxygen Flow Rate Fraction of Inspired Oxygen 35 08/22/24 16:45 08/22/24 16:52 08/22/24 17:00 Temperature 97.6 F Pulse Rate 64 63 64 Respiratory Rate 18 Blood Pressure 94/68 L 92/69 L 68/50 L Pulse Oximetry Oxygen Delivery Oxygen Flow Rate Fraction of Inspired Oxygen 08/22/24 17:04 08/22/24 17:23 08/22/24 17:23 Temperature Pulse Rate 67 63 63 Respiratory Rate 18 18 18 Blood Pressure Pulse Oximetry Oxygen Delivery Oxygen Flow Rate Fraction of Inspired Oxygen 08/22/24 17:30 08/22/24 17:35 08/22/24 17:40 Temperature Pulse Rate 61 62 62 Respiratory Rate 12 Blood Pressure 93/70 L 77/60 L Pulse Oximetry Oxygen Delivery Oxygen Flow Rate Fraction of Inspired Oxygen 08/22/24 17:40 08/22/24 17:45 08/22/24 17:50 Temperature Pulse Rate 59 L 62 91 Respiratory Rate 18 Blood Pressure 77/62 L Pulse Oximetry 93 Oxygen Delivery Mechanical Ventilation Oxygen Flow Rate Fraction of Inspired Oxygen 35 08/22/24 17:52 08/22/24 17:58 08/22/24 17:59 Temperature 97.7 F Pulse Rate 59 L 59 L 58 L Respiratory Rate 18 Blood Pressure 104/74 107/77 Pulse Oximetry 100 Oxygen Delivery Oxygen Flow Rate Fraction of Inspired Oxygen 08/22/24 18:00 08/22/24 18:00 08/22/24 18:00 Temperature Pulse Rate 59 L 58 L 58 L Respiratory Rate 18 18 Blood Pressure 107/77 Pulse Oximetry Oxygen Delivery Oxygen Flow Rate Fraction of Inspired Oxygen Intake/Output Intake/Output: Intake & Output 08/20/24 08/21/24 08/22/24 08/23/24 23:59 23:59 23:59 23:59 Intake Total 950.0 381.77 1326.4 595.6 Output Total 500 1500 1300 Balance 950.0 -118.23 -173.6 -704.4 Meds/Results Medications: Active Medications Generic Name Dose Route Start Last Admin Trade Name Freq PRN Reason Stop Dose Admin Acetaminophen 650 mg 08/20/24 07:34 08/20/24 14:03 Acetaminophen 325 Mg Tablet PO 650 mg Q4H PRN Administration Mild Pain (1-3) or Fever Albuterol 2.5 mg 08/20/24 15:12 Albuterol Sulfate Neb 2.5 Mg/3 Ml Inh INHALATION Q6HRT PRN Wheezing Albuterol 2 puff 08/20/24 15:12 Albuterol Sulfate (*Sp) Aerosol 1 Puff INHALATION Q6HRT PRN Wheezing Amlodipine Besylate 10 mg 08/20/24 15:15 08/22/24 08:38 Amlodipine Besylate 10 Mg Tablet PO Not Given DAILY JOSÉ MIGUEL Aspirin 81 mg 08/21/24 09:00 08/22/24 08:38 Aspirin 81 Mg Enteric Tablet PO Not Given QAM JOSÉ MIGUEL Calcium Acetate 667 mg 08/20/24 17:00 08/22/24 17:36 Calcium Acetate 667 Mg Tablet PO Not Given TIDWM JOSÉ MIGUEL Carvedilol 25 mg 08/20/24 15:15 08/22/24 08:38 Carvedilol 12.5 Mg Tablet PO Not Given Q12HR JOSÉ MIGUEL Clonidine HCl 0.2 mg 08/20/24 22:00 08/22/24 16:51 Clonidine Hcl 0.2 Mg Tablet PO Not Given Q8HR JOSÉ MIGUEL Dextrose 12.5 gm 08/21/24 14:30 Dextrose 50% 25 Gm/50 Ml Syringe IV PUSH PRN PRN Hypoglycemia Protocol Dolutegravir Sodium 50 mg 08/20/24 21:00 08/22/24 20:20 Dolutegravir Sodium 50 Mg Tablet PO 50 mg Q12HR JOSÉ MIGUEL Administration Doxazosin Mesylate 8 mg 08/20/24 21:00 08/21/24 23:02 Doxazosin Mesylate 4 Mg Tablet PO Not Given HS JOSÉ MIGUEL Entecavir 0.5 mg 08/22/24 14:00 08/22/24 16:51 Entecavir 0.5 Mg Tablet PO Not Given WEEKLY@1400 [facility] Epoetin Robbie-epbx 4,000 units 08/23/24 17:31 Epoetin Robbie-Epbx 4,000 Units/Ml Vial IV PUSH 08/23/24 17:32 ONCE ONE Folic Acid 1 mg 08/21/24 09:00 08/22/24 08:38 Folic Acid 1 Mg Tablet PO Not Given DAILY JOSÉ MIGUEL Glucagon 1 mg 08/21/24 14:30 Glucagon For Inj 1 Mg Vial IM PRN PRN Hypoglycemia Protocol Glucose 15 gm 08/21/24 14:30 Glucose Oral Gel 15 Gm Of Glucse In 37.5 Gm Tube PO PRN PRN Hypoglycemia Protocol Hydralazine HCl 20 mg 08/20/24 07:47 08/22/24 11:44 Hydralazine Hcl 20 Mg/Ml Vial IV PUSH 20 mg Q6HR PRN Administration Hypertension Metronidazole 500 mg in 100 mls @ 100 mls/hr 08/20/24 18:00 08/23/24 07:39 Flagyl 500 Mg/Iso Soln 100 Ml IVPB Infused Q8HR JOSÉ MIGUEL Infusion Albumin Human 50 mls @ 999 mls/hr 08/21/24 06:01 08/23/24 07:39 Albutein IVPB 09/20/24 06:00 Infused Q10M PRN Infusion HYPOTENSION Cefepime HCl 1 gm in 50 mls @ 100 mls/hr 08/22/24 21:00 08/22/24 22:17 Maxipime 1 Gm/Ns 50 Ml IVPB Infused QHS JOSÉ MIGUEL Infusion Acyclovir Sodium 425 mg/ 258.5 mls @ 250 mls/hr 08/21/24 15:00 08/22/24 21:25 Dextrose IVPB Infused DAILY@1500 JOSÉ MIGUEL Infusion Ampicillin Sodium 2 gm in 100 mls @ 200 mls/hr 08/21/24 16:00 08/23/24 07:39 Ampicillin 2 Gm/Ns 100 Ml IVPB Infused Q12H JOSÉ MIGUEL Infusion Dextrose 1,000 mls @ 100 mls/hr 08/21/24 14:30 Dextrose 5% 1,000 Ml IVPB PRN PRN Hypoglycemia Protocol Propofol 100 mls @ 0 mls/hr 08/22/24 14:05 08/23/24 02:00 Diprivan IV CONT 0 mcg/kg/min .Q0M JOSÉ MIGUEL 0 mls/hr Titration Protocol Fentanyl Citrate 2,500 mcg in 250 mls @ 15 mls/hr 08/22/24 14:40 08/23/24 06:00 Fentanyl 2,500 Mcg/Ns 250 Ml IV CONT 150 mcg/hr .[id number] JOSÉ MIGUEL 15 mls/hr Administration Protocol 150 MCG/HR Midazolam HCl 100 mg in 100 mls @ 8 mls/hr 08/22/24 17:10 08/23/24 06:00 Versed 100 Mg/Ns 100 Ml IV CONT 8 mg/hr .[id number] JOSÉ MIGUEL 8 mls/hr Administration Protocol 8 MG/HR Vancomycin HCl 500 mg in 100 mls @ 100 mls/hr 08/23/24 13:00 Vancomycin 500 Mg/Ns 100 Ml IVPB 08/23/24 13:59 ONCE ONE Insulin Aspart 2 - 5 units 08/21/24 18:00 08/23/24 05:53 Insulin Aspart (*Bkc) 100 Units/Ml SUB-Q Not Given Q6HR [facility] Protocol Labetalol HCl 20 mg 08/21/24 14:31 08/22/24 04:05 Labetalol Hcl Inj 100 Mg/20 Ml Vial IV PUSH 20 mg Q4H PRN Administration SBP > 160 and HR> 60 -1st choice Losartan Potassium 100 mg 08/21/24 09:00 08/22/24 08:38 Losartan Potassium 100 Mg Tablet PO Not Given DAILY JOSÉ MIGUEL Midazolam HCl 2 mg 08/22/24 14:39 08/23/24 08:23 Midazolam Hcl (*Crx) 2 Mg/2 Ml Vial IV PUSH 2 mg Q5M PRN Administration ventilator asynchrony Minoxidil 5 mg 08/20/24 21:00 08/22/24 08:39 Minoxidil 2.5 Mg Tablet PO Not Given Q12HR JOSÉ MIGUEL Multi-Ingred Cream/Lotion/Oil/Oint 1 applic 08/21/24 21:00 08/22/24 20:20 Mineral Oil/White Petrolatum Ointment EACH EYE 1 applic Q12HR JOSÉ MIGUEL Administration Multi-Ingred Cream/Lotion/Oil/Oint 1 applic 08/22/24 21:00 08/22/24 20:21 Mineral Oil/White Petrolatum Ointment EACH EYE Not Given Q12HR JOSÉ MIGUEL * Home Med * 1 tablet 08/21/24 09:00 08/22/24 08:38 Darunavir-Cobicistat PO 09/20/24 08:59 Not Given [Prezcobix] 800-150 DAILY JOSÉ MIGUEL Mg-Mg Tablet * Home Med * 600 mg 08/20/24 17:00 08/22/24 17:36 Fostemsavir [Rukobia PO 09/19/24 16:59 Not Given ] 600 Mg Tablet BID JOSÉ MIGUEL Extended Release 12 Hr Ondansetron HCl 4 mg 08/20/24 07:34 Ondansetron Inj 4 Mg/2 Ml Vial IV PUSH Q6H PRN Nausea And Vomiting Pantoprazole Sodium 40 mg 08/23/24 09:00 Pantoprazole Sodium Iv 40 Mg Vial IV PUSH QAM [facility] Fluticasone/Salmeterol 2 puff 08/20/24 20:00 08/23/24 08:12 Fluticasone/Salmeterol 115-21 Mcg Inhaler 1 Puff INHALATION Not Given Q12HRT JOSÉ MIGUEL Senna/Docusate Sodium 2 tab 08/20/24 21:00 08/22/24 20:20 Senna/Docusate Sodium Tablet PO 2 tab Q12HR JOSÉ MIGUEL Administration Sertraline HCl 50 mg 08/21/24 09:00 08/21/24 11:52 Sertraline Hcl 50 Mg Tablet PO Not Given DAILY JOSÉ MIGUEL Sodium Chloride 1 spray 08/20/24 17:00 08/22/24 20:21 Saline 0.65% Gelacio Soln 44 Ml Btl NASAL Not Given QID JOSÉ MIGUEL Trazodone HCl 25 mg 08/20/24 21:00 08/20/24 20:34 Trazodone Hcl 25 Mg Tablet PO Not Given HS JOSÉ MIGUEL Vancomycin HCl 1 each 08/19/24 22:39 Vancomycin For Hemodialysis IVPB PRN PRN Vancomycin Protocol Vitamin D 5,000 units 08/21/24 09:00 08/22/24 08:38 Cholecalciferol 5,000 Units Tablet PO Not Given DAILY [facility] Radiology Results: ITS Impressions Chest/Abdomen/Pelvis CT 08/20/24 07:41 IMPRESSION: Mural thickening within the colon, with diffuse anasarca. Head CT 08/21/24 22:51 Impression: No acute intracranial hemorrhage or suspicious mass effect. Inflammatory sinus disease. Central Venous Line 08/22/24 13:55 IMPRESSION: 1. Right internal jugular central venous catheter tip near the superior cavoatrial junction. See procedure note for further detail. Abdomen X-Ray 08/22/24 14:49 IMPRESSION: 1. Endotracheal tube tip 7.4 cm above the heather. Recommend advancement by 5 cm. 2. Orogastric tube in expected position in the stomach. 2. Improvement in prior bilateral airspace opacities with residual mild streaky opacities at left lung base most likely atelectasis with differential including minimal pulmonary edema or pneumonia. Lumbar Puncture Fluoroscopy 08/22/24 15:50 IMPRESSION: 1. Successful fluoro-guided lumbar puncture with normal opening pressure of 15 cm water. Chest X-Ray 08/23/24 06:20 Impression: Mild haziness left lung base. Correlate for atelectasis or pneumonia. Support tubes, as above. Labs Labs: Laboratory Tests 08/22/24 04:18 WBC 3.7 L Hgb 10.2 L Hct 32.4 L Plt Count 84 L Sodium 147 H Potassium 5.2 H Chloride 103 Carbon Dioxide 29 BUN 71 H Creatinine 13.16 H Estimated GFR 4 L Glucose 102 Calcium 8.6 Phosphorus 6.0 H Magnesium 2.6 H Albumin 4.5
[2024-08-22] MEDS: MIDAZOLAM HCL (*CRX) 2 MG/2 ML VIAL IV PUSH (18:38)
[2024-08-22] MEDS: DOLUTEGRAVIR SODIUM 50 MG TABLET PO (20:20)
[2024-08-22] MEDS: VANCOMYCIN 750 MG/NS 250 ML 750 MG/250 ML BAG 250 MG IVPB (20:20)
[2024-08-22] MEDS: MINERAL OIL/WHITE PETROLATUM OINTMENT 1 APPLIC EACH EYE (20:20)
[2024-08-22] MEDS: SENNA/DOCUSATE SODIUM TABLET 2 TAB PO (20:20)
[2024-08-22] MEDS: DEXTROSE 5% IVPB (20:22)
[2024-08-22] MEDS: WATER IVPB (20:22)
[2024-08-22] MEDS: ACYCLOVIR SODIUM IVPB (20:22)
[2024-08-22] MEDS: HEPARIN SODIUM 1,000 UNITS/ML VIAL 5000 UNITS (20:30)
[2024-08-22] MEDS: CEFEPIME 1 GM/NS 50 ML 1 GM/50 ML BAG IVPB (21:52)
[2024-08-22 23:49] LABS: Absolute CD4 Count 63 cells/uL (490-1740); Lymphocytes, Absolute 610 cells/uL (850-3900); Percent CD4 Cells 10 % (30-61)
[2024-08-22 23:52] LABS: Glucose Point of Care 87 mg/dl (65-105)
[2024-08-23] VITALS (36 sets, daily range): BP systolic 127–162; BP diastolic 85–108; PULSE 72–136; RESP 18; TEMP 36.6–37.6; O2SAT 92–99
[2024-08-23] MEDS: AMPICILLIN 2 GM/NS 100 ML 2 GM/100 ML BAG IVPB (04:30)
[2024-08-23 05:00] LABS: Base Excess ABG 5.6 mEq/l (+/-2.0); Carboxyhemoglobin 1.7 % THb (0-2.0); Fractional Inspired Oxygen 35 %; HCO3 ABG 30.2 mEq/l (22.0-26.0); Methemoglobin ABG 0.3 %THb (0-1.5); Oxygen Content ABG 13.3 %vol (16.0-22.0); Oxygen Saturation ABG 93.9 % (95.0-100.0); Oxyhemoglobin 90.5 % THb (90.0-100.0); PO2 ABG 66.4 mmHg (80.0-100.0); Reduced Hemoglobin 7.5 %THb (0-5.0); Total Hemoglobin 10.4 g/dL (12.0-18.0); pH ABG 7.454 (7.350-7.450)
[2024-08-23 05:09] LABS: Basophils Percent Auto 0.6 % (0.2-1.2); Eosinophils Absolute Auto 0.3 K/mm3 (0-0.3); Eosinophils Percent Auto 9.2 % (0-4.4); Hematocrit 31.4 % (42.0-52.0); Immature Granulocyte Absolute 0.01 K/mm3 (0.00-0.031); Immature Granulocyte Percent A 0.3 % (0-0.5); Immature Platelet Fraction Pct 3.4 % (0.9-11.2); Lymphocytes Absolute Auto 0.34 K/mm3 (0.9-3.2); Lymphocytes Percent Auto 10.4 % (18.3-44.2); Mean Corpuscular HGB Conc 31.8 g/dl (32-36); Mean Corpuscular Hemoglobin 30.9 pg (26-34); Mean Corpuscular Volume 96.9 fl (80-100); Mean Platelet Volume 10.6 fl (7.4-10.4); Monocytes Absolute Auto 0.3 K/mm3 (0.1-0.6); Monocytes Percent Auto 9.2 % (2.6-8.5); Neutrophils Absolute Auto 2.3 K/mm3 (1.3-6.7); Neutrophils Percent Auto 70.3 % (45.5-73.1); Platelet Count Result 78 k/mm3 (150-375); Red Blood Count 3.24 M/mm3 (4.6-6.20); Red Cell Distribution Width 19.7 % (11.5-14.5); White Blood Count 3.3 K/mm3 (4.5-10.0)
[2024-08-23 05:26] LABS: Alanine Aminotransferase 37 U/L (6-50); Albumin Level 4.2 g/dL (3.5-5.1); Alkaline Phosphatase 67 U/L (38-126); Anion Gap 12 mmol/L (4-12); Aspartate Amino Transferase 38 U/L (17-59); Bilirubin,Total 0.7 mg/dL (0.2-1.3); Blood Urea Nitrogen 36 mg/dL (9-20); Calcium 8.3 mg/dL (8.4-10.2); Carbon Dioxide 34 mmol/L (22-30); Chloride 97 mmol/L (98-107); Estimated CRCL calculation 9 ml/min; Estimated Glomerular Filt Rate 6; Glucose 78 mg/dL (65-110); Magnesium 2.2 mg/dL (1.6-2.3); Phosphorus 4.7 mg/dL (2.5-4.5); Potassium 3.9 mmol/L (3.4-5.0); Sodium 143 mmol/L (137-145)
[2024-08-23 05:34] LABS: Band Neutrophils Percent 0 % (0-6); Hypochromasia 1+; Platelet Estimate Decreased (Adequate)
[2024-08-23 05:35] LABS: Anisocytosis 1+; Schistocytes None Seen; Target Cells 1+; Tear Drop Cells 1+
[2024-08-23 05:49] LABS: Vancomycin Random 20.5 ug/mL (10-20)
[2024-08-23 06:00] LABS: Device VENTILATOR; Modified Allen's Test Pass; Site Drawn RIGHT RADIAL
[2024-08-23] MEDS: FENTANYL 2,500MCG/NS250ML(*CRX 2,500 MCG/250 ML BAG 15 MCG IV CONT (06:00)
[2024-08-23] MEDS: MIDAZOLAM 100MG/NS 100ML(*CRX) 100 MG/100 ML BAG 8 MG IV CONT (06:00)
[2024-08-23 06:01] LABS: Arterial Blood Gas PEEP 5 cmH2O; Arterial Blood Gas Tidal Volume 450 ml; Arterial Blood Gas Vent Mode CMV; Arterial Blood Gas Ventilator rate 18 /MIN
[2024-08-23] MEDS: metroNIDAZOLE 500 MG/ISO 100ML 500 MG/100 ML BAG 100 MG IVPB ×2 (06:01→13:52)
[2024-08-23] MEDS: MIDAZOLAM HCL (*CRX) 2 MG/2 ML VIAL IV PUSH (08:23)
--- NOTE | 2024-08-23 08:47 | P.PNNP_ITS ---
Subjective Date/time seen: 08/23/24 08:45 Objective Data Vital Signs Vital Signs: Vital Signs Temp Pulse Resp BP Pulse Ox O2 Del Method FiO2 08/23/24 08:45 79 157/99 H 08/23/24 08:30 84 158/104 H 08/23/24 08:15 76 146/101 H 08/23/24 08:09 35 08/23/24 08:09 75 145/98 H 08/23/24 08:00 77 18 08/23/24 08:00 77 18 08/23/24 08:00 77 18 08/23/24 08:00 35 08/23/24 08:00 78 08/23/24 08:00 Mechanical Ventilation 35 08/23/24 08:00 99.7 F H 77 18 144/93 H 96 08/23/24 07:51 99.2 F 79 18 140/95 H 96 08/23/24 06:00 78 18 144/91 H 97 08/23/24 06:00 78 08/23/24 06:00 79 18 08/23/24 06:00 82 18 08/23/24 06:00 78 18 08/23/24 05:59 81 18 08/23/24 05:22 85 18 08/23/24 05:05 78 18 08/23/24 04:55 75 95 Mechanical Ventilation 35 08/23/24 04:00 78 18 08/23/24 04:00 78 18 08/23/24 04:00 78 08/23/24 04:00 99.0 F 77 18 160/98 H 96 08/23/24 03:45 35 08/23/24 03:35 77 18 96 Mechanical Ventilation 35 08/23/24 02:38 88 96 Mechanical Ventilation 35 08/23/24 02:00 80 18 08/23/24 02:00 89 18 08/23/24 02:00 89 18 08/23/24 02:00 89 18 131/85 95 08/23/24 02:00 89 08/23/24 01:15 72 18 08/23/24 01:00 35 08/23/24 00:00 87 18 08/23/24 00:00 87 18 08/23/24 00:00 87 18 08/23/24 00:00 87 08/23/24 00:00 97.9 F 104 H 18 152/96 H 95 08/22/24 23:57 35 08/22/24 23:45 107 H 26 H 94 Mechanical Ventilation 35 08/22/24 23:40 107 H 26 H 08/22/24 23:20 105 H 24 H 08/22/24 22:56 70 94 Mechanical Ventilation 35 08/22/24 22:30 105 H 30 H 08/22/24 22:00 75 18 08/22/24 22:00 74 18 08/22/24 22:00 74 18 08/22/24 22:00 76 18 138/94 H 94 08/22/24 22:00 70 08/22/24 21:51 71 18 08/22/24 21:00 73 18 08/22/24 20:35 35 08/22/24 20:30 82 24 H 96 Mechanical Ventilation 35 08/22/24 20:28 67 21 H 08/22/24 20:26 97.4 F L 67 20 128/88 08/22/24 20:18 67 121/86 08/22/24 20:15 70 111/86 08/22/24 20:12 70 96 Mechanical Ventilation 35 08/22/24 20:02 69 18 08/22/24 20:00 70 08/22/24 20:00 96.2 F L 75 22 H 97/76 L 94 08/22/24 20:00 65 18 08/22/24 20:00 65 18 08/22/24 20:00 69 97/76 L 08/22/24 19:55 69 18 08/22/24 19:50 65 20 08/22/24 19:45 68 122/90 08/22/24 19:37 85 26 H 08/22/24 19:30 78 24 H 08/22/24 19:30 94 08/22/24 19:15 86 26 H 08/22/24 19:15 81 165/98 H 08/22/24 19:06 92 25 H 08/22/24 19:00 89 157/105 H 08/22/24 18:52 83 18 08/22/24 18:45 95 159/96 H 08/22/24 18:39 73 24 H 08/22/24 18:37 76 150/95 H 08/22/24 18:30 70 150/95 H 08/22/24 18:25 59 L 18 08/22/24 18:24 58 L 18 04/01/25 18:15 56 L 129/90 08/22/24 18:00 58 L 116/83 08/22/24 18:00 58 L 18 08/22/24 18:00 58 L 18 08/22/24 18:00 58 L 107/77 08/22/24 18:00 59 L 18 08/22/24 17:59 58 L 08/22/24 17:58 97.7 F 59 L 18 107/77 100 08/22/24 17:52 59 L 104/74 08/22/24 17:50 91 93 Mechanical Ventilation 35 08/22/24 17:45 62 77/62 L 08/22/24 17:40 59 L 18 08/22/24 17:40 62 77/60 L 08/22/24 17:35 62 12 08/22/24 17:30 61 93/70 L 08/22/24 17:23 63 18 08/22/24 17:23 63 18 08/22/24 17:04 67 18 08/22/24 17:00 64 68/50 L 08/22/24 16:52 63 92/69 L 08/22/24 16:45 97.6 F 64 18 94/68 L 08/22/24 16:45 35 08/22/24 16:00 73 08/22/24 16:00 95 17 08/22/24 16:00 95 17 08/22/24 16:00 98.2 F 73 17 157/109 H 95 08/22/24 16:00 60 08/22/24 16:00 100 Mechanical Ventilation Intake/Output Intake/Output: Intake & Output 08/20/24 08/21/24 08/22/24 08/23/24 23:59 23:59 23:59 23:59 Intake Total 950.0 381.77 1326.4 879.6 Output Total 500 1500 3500 Balance 950.0 -118.23 -173.6 -2620.4 Meds/Results Medications: Active Medications Generic Name Dose Route Start Trade Name Freq PRN Reason Stop Acetaminophen 650 mg 08/20/24 07:34 Acetaminophen 325 Mg Tablet PO Q4H PRN Mild Pain (1-3) or Fever Albuterol 2.5 mg 08/20/24 15:12 Albuterol Sulfate Neb 2.5 Mg/3 Ml Inh INHALATION Q6HRT PRN Wheezing Albuterol 2 puff 08/20/24 15:12 Albuterol Sulfate (*Sp) Aerosol 1 Puff INHALATION Q6HRT PRN Wheezing Amlodipine Besylate 10 mg 08/20/24 15:15 Amlodipine Besylate 10 Mg Tablet PO DAILY [facility] Aspirin 81 mg 08/21/24 09:00 Aspirin 81 Mg Enteric Tablet PO QAM JOS[facility] MIGUEL Calcium Acetate 667 mg 08/20/24 17:00 Calcium Acetate 667 Mg Tablet PO TIDWM [facility] Carvedilol 25 mg 08/20/24 15:15 Carvedilol 12.5 Mg Tablet PO Q12HR JOSÉ MIGUEL Clonidine HCl 0.2 mg 08/20/24 22:00 Clonidine Hcl 0.2 Mg Tablet PO Q8HR [facility] Dextrose 12.5 gm 08/21/24 14:30 Dextrose 50% 25 Gm/50 Ml Syringe IV PUSH PRN PRN Hypoglycemia Protocol Dolutegravir Sodium 50 mg 08/20/24 21:00 Dolutegravir Sodium 50 Mg Tablet PO Q12HR [facility] Doxazosin Mesylate 8 mg 08/20/24 21:00 Doxazosin Mesylate 4 Mg Tablet PO HS [facility] Entecavir 0.5 mg 08/22/24 14:00 Entecavir 0.5 Mg Tablet PO WEEKLY@1400 [facility] Epoetin Robbie-epbx 4,000 units 08/23/24 17:31 Epoetin Robbie-Epbx 4,000 Units/Ml Vial IV PUSH 08/23/24 17:32 ONCE ONE Folic Acid 1 mg 08/21/24 09:00 Folic Acid 1 Mg Tablet PO DAILY [facility] Glucagon 1 mg 08/21/24 14:30 Glucagon For Inj 1 Mg Vial IM PRN PRN Hypoglycemia Protocol Glucose 15 gm 08/21/24 14:30 Glucose Oral Gel 15 Gm Of Glucse In 37.5 Gm Tube PO PRN PRN Hypoglycemia Protocol Hydralazine HCl 20 mg 08/20/24 07:47 Hydralazine Hcl 20 Mg/Ml Vial IV PUSH Q6HR PRN Hypertension Metronidazole 500 mg in 100 mls @ 100 mls/hr 08/20/24 18:00 Flagyl 500 Mg/Iso Soln 100 Ml IVPB Q8HR JOSÉ MIGUEL Albumin Human 50 mls @ 999 mls/hr 08/21/24 06:01 Albutein IVPB 09/20/24 06:00 Q10M PRN HYPOTENSION Cefepime HCl 1 gm in 50 mls @ 100 mls/hr 08/22/24 21:00 Maxipime 1 Gm/Ns 50 Ml IVPB QHS [facility] Acyclovir Sodium 425 mg/ 258.5 mls @ 250 mls/hr 08/21/24 15:00 Dextrose IVPB DAILY@1500 JOSÉ MIGUEL Ampicillin Sodium 2 gm in 100 mls @ 200 mls/hr 08/21/24 16:00 Ampicillin 2 Gm/Ns 100 Ml IVPB Q12H [facility] Dextrose 1,000 mls @ 100 mls/hr 08/21/24 14:30 Dextrose 5% 1,000 Ml IVPB PRN PRN Hypoglycemia Protocol Propofol 100 mls @ 0 mls/hr 08/22/24 14:05 Diprivan IV CONT .Q0M [facility] Protocol Fentanyl Citrate 2,500 mcg in 250 mls @ 15 mls/hr 08/22/24 14:40 Fentanyl 2,500 Mcg/Ns 250 Ml IV CONT .[id number] [facility] Protocol 150 MCG/HR Midazolam HCl 100 mg in 100 mls @ 8 mls/hr 08/22/24 17:10 Versed 100 Mg/Ns 100 Ml IV CONT .[id number] [facility] Protocol 8 MG/HR Vancomycin HCl 500 mg in 100 mls @ 100 mls/hr 08/23/24 13:00 Vancomycin 500 Mg/Ns 100 Ml IVPB 08/23/24 13:59 ONCE ONE Insulin Aspart 2 - 5 units 08/21/24 18:00 Insulin Aspart (*Bkc) 100 Units/Ml SUB-Q Q6HR [facility] Protocol Labetalol HCl 20 mg 08/21/24 14:31 Labetalol Hcl Inj 100 Mg/20 Ml Vial IV PUSH Q4H PRN SBP > 160 and HR> 60 -1st choice Losartan Potassium 100 mg 08/21/24 09:00 Losartan Potassium 100 Mg Tablet PO DAILY [facility] Midazolam HCl 2 mg 08/22/24 14:39 Midazolam Hcl (*Crx) 2 Mg/2 Ml Vial IV PUSH Q5M PRN ventilator asynchrony Minoxidil 5 mg 08/20/24 21:00 Minoxidil 2.5 Mg Tablet PO Q12HR [facility] Multi-Ingred Cream/Lotion/Oil/Oint 1 applic 08/21/24 21:00 Mineral Oil/White Petrolatum Ointment EACH EYE Q12HR JOS[facility] MIGUEL Multi-Ingred Cream/Lotion/Oil/Oint 1 applic 08/22/24 21:00 Mineral Oil/White Petrolatum Ointment EACH EYE Q12HR JOSÉ MIGUEL * Home Med * 1 tablet 08/21/24 09:00 Darunavir-Cobicistat PO 09/20/24 08:59 [Prezcobix] 800-150 DAILY JOSÉ MIGUEL Mg-Mg Tablet * Home Med * 600 mg 08/20/24 17:00 Fostemsavir [Rukobia PO 09/19/24 16:59 ] 600 Mg Tablet BID JOSÉ MIGUEL Extended Release 12 Hr Ondansetron HCl 4 mg 08/20/24 07:34 Ondansetron Inj 4 Mg/2 Ml Vial IV PUSH Q6H PRN Nausea And Vomiting Pantoprazole Sodium 40 mg 08/23/24 09:00 Pantoprazole Sodium Iv 40 Mg Vial IV PUSH QAM JOSÉ MIGUEL Fluticasone/Salmeterol 2 puff 08/20/24 20:00 Fluticasone/Salmeterol 115-21 Mcg Inhaler 1 Puff INHALATION Q12HRT JOSÉ MIGUEL Senna/Docusate Sodium 2 tab 08/20/24 21:00 Senna/Docusate Sodium Tablet PO Q12HR JOSÉ MIGUEL Sertraline HCl 50 mg 08/21/24 09:00 Sertraline Hcl 50 Mg Tablet PO DAILY [facility] Sodium Chloride 1 spray 08/20/24 17:00 Saline 0.65% Gelacio Soln 44 Ml Btl NASAL QID JOSÉ MIGUEL Trazodone HCl 25 mg 08/20/24 21:00 Trazodone Hcl 25 Mg Tablet PO HS JOSÉ MIGUEL Vancomycin HCl 1 each 08/19/24 22:39 Vancomycin For Hemodialysis IVPB PRN PRN Vancomycin Protocol Vitamin D 5,000 units 08/21/24 09:00 Cholecalciferol 5,000 Units Tablet PO DAILY [facility] Radiology Results: ITS Impressions Chest/Abdomen/Pelvis CT 08/20/24 07:41 IMPRESSION: Mural thickening within the colon, with diffuse anasarca. Head CT 08/21/24 22:51 Impression: No acute intracranial hemorrhage or suspicious mass effect. Inflammatory sinus disease. Central Venous Line 08/22/24 13:55 IMPRESSION: 1. Right internal jugular central venous catheter tip near the superior cavoatrial junction. See procedure note for further detail. Abdomen X-Ray 08/22/24 14:49 IMPRESSION: 1. Endotracheal tube tip 7.4 cm above the heather. Recommend advancement by 5 cm. 2. Orogastric tube in expected position in the stomach. 2. Improvement in prior bilateral airspace opacities with residual mild streaky opacities at left lung base most likely atelectasis with differential including minimal pulmonary edema or pneumonia. Lumbar Puncture Fluoroscopy 08/22/24 15:50 IMPRESSION: 1. Successful fluoro-guided lumbar puncture with normal opening pressure of 15 cm water. Chest X-Ray 08/23/24 06:20 Impression: Mild haziness left lung base. Correlate for atelectasis or pneumonia. Support tubes, as above. Labs Labs: Laboratory Tests 08/23/24 04:47 08/23/24 04:47 Calcium 8.3 L Phosphorus 4.7 H Magnesium 2.2 Total Bilirubin 0.7 AST 38 ALT 37 Alkaline Phosphatase 67 Total Protein 8.0 Albumin 4.2 Microbiology 08/22/24 15:29 Cerebral Spinal Fluid Gram Stain - Final 08/22/24 15:29 Cerebral Spinal Fluid CSF Culture - Preliminary
[2024-08-23] MEDS: EPOETIN ALFA-EPBX 4,000 UNITS/ML VIAL 4000 UNITS IV PUSH (10:02)
--- NOTE | 2024-08-23 11:05 | P.PNINT_ITS ---
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 Albumin Triglycerides 68 CSF Source CSF Appearance CSF Color CSF RBC CSF Tot Nucleated Cells CSF Neutrophils CSF Lymphocytes CSF Monocytes CSF Macrophages CSF Glucose CSF Total Protein Random Vancomycin Absolute Lymphocytes 610 L % CD4 Cells 10 L Absolute CD4 Count 63 L HIV-1 RNA logcopies/mL <1.30 detected A HIV-1 RNA PCR copies/ml <20 detected A 08/22/24 08/22/24 08/22/24 15:29 17:49 17:51 WBC RBC Hgb Hct MCV MCH MCHC RDW Plt Count MPV Immature Gran % (Auto) Neut % (Auto) Lymph % (Auto) [place] % (Auto) Eos % (Auto) Baso % (Auto) Lymph # (Auto) [place] # (Auto) Eos # (Auto) Baso # (Auto) Abs Immat Gran (auto) Absolute Neuts (auto) Absolute Nucleated RBC Band Neutrophils % Nucleated RBC % Platelet Estimate % Immature Plt Fraction Hypochromasia Anisocytosis Target Cells Tear Drop Cells Schistocytes Puncture Site Right radial ABG pH 7.412 ABG pCO2 43.0 ABG pO2 83.0 ABG PO2/FiO2 Ratio 2.37 ABG HCO3 26.8 H ABG O2 Saturation 96.3 ABG O2 Content 12.1 L ABG Base Excess 1.9 A-a Gradient 116.6 Oxyhemoglobin 92.9 Carboxyhemoglobin Methemoglobin Reduced Hemoglobin Total Hemoglobin 9.2 L O2 Delivery Device Ventilator O2 Liters/Min Not Reportable Minute Volume Not Reportable Vent Rate 18 Vent Mode Cmv FiO2 35 Tidal Volume 450 PEEP 5 Peak Inspir Pressure Not Reportable Pressure Support Not Reportable Sodium Potassium Chloride Carbon Dioxide Anion Gap BUN Creatinine Estim Creat Clear Calc Estimated GFR Glucose POC Capillary Glucose 81 Calcium Phosphorus Magnesium Total Bilirubin AST ALT Alkaline Phosphatase Total Protein Albumin Triglycerides CSF Source Csf CSF Appearance Clear CSF Color Colorless CSF RBC 2 CSF Tot Nucleated Cells 6 H CSF Neutrophils 0 CSF Lymphocytes 90 H CSF Monocytes 2 L CSF Macrophages 8 CSF Glucose 59 CSF Total Protein 94 H Random Vancomycin Absolute Lymphocytes % CD4 Cells Absolute CD4 Count HIV-1 RNA logcopies/mL HIV-1 RNA PCR copies/ml 08/22/24 08/23/24 08/23/24 23:33 04:47 04:51 WBC 3.3 L RBC 3.24 L Hgb 10.0 L Hct 31.4 L MCV 96.9 MCH 30.9 MCHC 31.8 L RDW 19.7 H Plt Count 78 L MPV 10.6 H Immature Gran % (Auto) 0.3 Neut % (Auto) 70.3 Lymph % (Auto) 10.4 L [place] % (Auto) 9.2 H Eos % (Auto) 9.2 H Baso % (Auto) 0.6 Lymph # (Auto) 0.34 L [place] # (Auto) 0.3 Eos # (Auto) 0.3 Baso # (Auto) 0.0 Abs Immat Gran (auto) 0.01 Absolute Neuts (auto) 2.3 Absolute Nucleated RBC 0.000 Band Neutrophils % 0 Nucleated RBC % 0.0 Platelet Estimate Decreased % Immature Plt Fraction 3.4 Hypochromasia 1+ Anisocytosis 1+ Target Cells 1+ Tear Drop Cells 1+ Schistocytes None seen Puncture Site Right radial ABG pH 7.454 H ABG pCO2 44.0 ABG pO2 66.4 L ABG PO2/FiO2 Ratio 1.90 ABG HCO3 30.2 H ABG O2 Saturation 93.9 L ABG O2 Content 13.3 L ABG Base Excess 5.6 A-a Gradient 132.0 Oxyhemoglobin 90.5 Carboxyhemoglobin 1.7 Methemoglobin 0.3 Reduced Hemoglobin 7.5 H Total Hemoglobin 10.4 L O2 Delivery Device Ventilator O2 Liters/Min Not Reportable Minute Volume Not Reportable Vent Rate 18 Vent Mode Cmv FiO2 35 Tidal Volume 450 PEEP 5 Peak Inspir Pressure Not Reportable Pressure Support Not Reportable Sodium 143 Potassium 3.9 Chloride 97 L Carbon Dioxide 34 H Anion Gap 12 BUN 36 H D Creatinine 8.47 H Estim Creat Clear Calc 9 Estimated GFR 6 L Glucose 78 POC Capillary Glucose 87 Calcium 8.3 L Phosphorus 4.7 H Magnesium 2.2 Total Bilirubin 0.7 AST 38 ALT 37 Alkaline Phosphatase 67 Total Protein 8.0 Albumin 4.2 Triglycerides CSF Source CSF Appearance CSF Color CSF RBC CSF Tot Nucleated Cells CSF Neutrophils CSF Lymphocytes CSF Monocytes CSF Macrophages CSF Glucose CSF Total Protein Random Vancomycin 20.5 H Absolute Lymphocytes % CD4 Cells Absolute CD4 Count HIV-1 RNA logcopies/mL HIV-1 RNA PCR copies/ml Quality VTE Prophylaxis VTE prophylaxis: mechanical ordered
--- NOTE | 2024-08-23 11:07 | PM.PNGS ---
Progress Note: A&P Assessment and Plan (1) End-stage renal disease on hemodialysis: Code(s): N18.6 - End stage renal disease; Z99.2 - Dependence on renal dialysis Status: Acute Assessment and Plan: S/p tunneled dialysis catheter placement. No issues with bleeding from the line overnight. He is receiving dialysis today. Will sign off, call with surgical questions or concerns. Plan I have discussed the patient's case and plan of care with Dr. Christianson. Subjective Subjective Date/Time Seen: 08/23/24 11:07 Interval history: No issues with the dialysis catheter having anymore bleeding overnight. There was issues with the dressings initially postop having some bloody saturated drainage requiring them to change the dressing 3 times after surgery. Since a pressure dressing was applied yesterday afternoon, no more bleeding. Same dressing is in place. He is being dialyzed without any issues today. Exam Narrative: Right chest tunneled dialysis catheter, gauze dressing dry and intact, dressing removed, there is no bleeding or oozing from the site, no swelling around the catheter. left neck incision dry with glue intact without any swelling Objective Data Vital Signs Vital Signs: Vital Signs - 24 hr 08/22/24 11:30 08/22/24 11:30 08/22/24 11:42 Temperature 97.7 F 98.7 F Pulse Rate 62 77 81 Respiratory Rate 18 18 18 Blood Pressure 186/98 H 174/108 H Pulse Oximetry 100 100 Oxygen Delivery Nasal Cannula Oxygen Flow Rate 2 Fraction of Inspired Oxygen 08/22/24 11:42 08/22/24 12:24 08/22/24 14:00 Temperature Pulse Rate 81 70 Respiratory Rate 18 Blood Pressure 154/97 H Pulse Oximetry Oxygen Delivery Oxygen Flow Rate Fraction of Inspired Oxygen 08/22/24 14:00 08/22/24 14:13 08/22/24 14:20 Temperature 97.9 F Pulse Rate 70 87 92 Respiratory Rate 18 13 15 Blood Pressure 111/81 Pulse Oximetry 100 Oxygen Delivery Oxygen Flow Rate Fraction of Inspired Oxygen 08/22/24 14:25 08/22/24 14:29 08/22/24 14:50 Temperature Pulse Rate 99 96 96 Respiratory Rate 15 15 Blood Pressure Pulse Oximetry 92 Oxygen Delivery Mechanical Ventilation Oxygen Flow Rate Fraction of Inspired Oxygen 60 08/22/24 14:52 08/22/24 15:00 08/22/24 16:00 Temperature Pulse Rate 98 70 Respiratory Rate 16 19 Blood Pressure Pulse Oximetry 100 Oxygen Delivery Mechanical Ventilation Oxygen Flow Rate Fraction of Inspired Oxygen 08/22/24 16:00 08/22/24 16:00 08/22/24 16:00 Temperature 98.2 F Pulse Rate 73 95 Respiratory Rate 17 17 Blood Pressure 157/109 H Pulse Oximetry 95 Oxygen Delivery Oxygen Flow Rate Fraction of Inspired Oxygen 60 08/22/24 16:00 08/22/24 16:00 08/22/24 16:45 Temperature Pulse Rate 95 73 Respiratory Rate 17 Blood Pressure Pulse Oximetry Oxygen Delivery Oxygen Flow Rate Fraction of Inspired Oxygen 35 08/22/24 16:45 08/22/24 16:52 08/22/24 17:00 Temperature 97.6 F Pulse Rate 64 63 64 Respiratory Rate 18 Blood Pressure 94/68 L 92/69 L 68/50 L Pulse Oximetry Oxygen Delivery Oxygen Flow Rate Fraction of Inspired Oxygen 08/22/24 17:04 08/22/24 17:23 08/22/24 17:23 Temperature Pulse Rate 67 63 63 Respiratory Rate 18 18 18 Blood Pressure Pulse Oximetry Oxygen Delivery Oxygen Flow Rate Fraction of Inspired Oxygen 08/22/24 17:30 08/22/24 17:35 08/22/24 17:40 Temperature Pulse Rate 61 62 62 Respiratory Rate 12 Blood Pressure 93/70 L 77/60 L Pulse Oximetry Oxygen Delivery Oxygen Flow Rate Fraction of Inspired Oxygen 08/22/24 17:40 08/22/24 17:45 08/22/24 17:50 Temperature Pulse Rate 59 L 62 91 Respiratory Rate 18 Blood Pressure 77/62 L Pulse Oximetry 93 Oxygen Delivery Mechanical Ventilation Oxygen Flow Rate Fraction of Inspired Oxygen 35 08/22/24 17:52 08/22/24 17:58 08/22/24 17:59 Temperature 97.7 F Pulse Rate 59 L 59 L 58 L Respiratory Rate 18 Blood Pressure 104/74 107/77 Pulse Oximetry 100 Oxygen Delivery Oxygen Flow Rate Fraction of Inspired Oxygen 08/22/24 18:00 08/22/24 18:00 08/22/24 18:00 Temperature Pulse Rate 59 L 58 L 58 L Respiratory Rate 18 18 Blood Pressure 107/77 Pulse Oximetry Oxygen Delivery Oxygen Flow Rate Fraction of Inspired Oxygen 08/22/24 18:00 08/22/24 18:00 08/22/24 18:15 Temperature Pulse Rate 58 L 58 L 56 L Respiratory Rate 18 Blood Pressure 116/83 129/90 Pulse Oximetry Oxygen Delivery Oxygen Flow Rate Fraction of Inspired Oxygen 08/22/24 18:24 08/22/24 18:25 08/22/24 18:30 Temperature Pulse Rate 58 L 59 L 70 Respiratory Rate 18 18 Blood Pressure 150/95 H Pulse Oximetry Oxygen Delivery Oxygen Flow Rate Fraction of Inspired Oxygen 08/22/24 18:37 08/22/24 18:39 08/22/24 18:45 Temperature Pulse Rate 76 73 95 Respiratory Rate 24 H Blood Pressure 150/95 H 159/96 H Pulse Oximetry Oxygen Delivery Oxygen Flow Rate Fraction of Inspired Oxygen 08/22/24 18:52 08/22/24 19:00 08/22/24 19:06 Temperature Pulse Rate 83 89 92 Respiratory Rate 18 25 H Blood Pressure 157/105 H Pulse Oximetry Oxygen Delivery Oxygen Flow Rate Fraction of Inspired Oxygen 08/22/24 19:15 08/22/24 19:15 08/22/24 19:30 Temperature Pulse Rate 81 86 94 Respiratory Rate 26 H Blood Pressure 165/98 H Pulse Oximetry Oxygen Delivery Oxygen Flow Rate Fraction of Inspired Oxygen 08/22/24 19:30 08/22/24 19:37 08/22/24 19:45 Temperature Pulse Rate 78 85 68 Respiratory Rate 24 H 26 H Blood Pressure 122/90 Pulse Oximetry Oxygen Delivery Oxygen Flow Rate Fraction of Inspired Oxygen 08/22/24 19:50 08/22/24 19:55 08/22/24 20:00 Temperature Pulse Rate 65 69 69 Respiratory Rate 20 18 Blood Pressure 97/76 L Pulse Oximetry Oxygen Delivery Oxygen Flow Rate Fraction of Inspired Oxygen 08/22/24 20:00 08/22/24 20:00 08/22/24 20:00 Temperature 96.2 F L Pulse Rate 65 65 75 Respiratory Rate 18 18 22 H Blood Pressure 97/76 L Pulse Oximetry 94 Oxygen Delivery Oxygen Flow Rate Fraction of Inspired Oxygen 08/22/24 20:00 08/22/24 20:02 08/22/24 20:12 Temperature Pulse Rate 70 69 70 Respiratory Rate 18 Blood Pressure Pulse Oximetry 96 Oxygen Delivery Mechanical Ventilation Oxygen Flow Rate Fraction of Inspired Oxygen 35 08/22/24 20:15 08/22/24 20:18 08/22/24 20:26 Temperature 97.4 F L Pulse Rate 70 67 67 Respiratory Rate 20 Blood Pressure 111/86 121/86 128/88 Pulse Oximetry Oxygen Delivery Oxygen Flow Rate Fraction of Inspired Oxygen 08/22/24 20:28 08/22/24 20:30 08/22/24 20:35 Temperature Pulse Rate 67 82 Respiratory Rate 21 H 24 H Blood Pressure Pulse Oximetry 96 Oxygen Delivery Mechanical Ventilation Oxygen Flow Rate Fraction of Inspired Oxygen 35 35 08/22/24 21:00 08/22/24 21:51 08/22/24 22:00 Temperature Pulse Rate 73 71 70 Respiratory Rate 18 18 Blood Pressure Pulse Oximetry Oxygen Delivery Oxygen Flow Rate Fraction of Inspired Oxygen 08/22/24 22:00 08/22/24 22:00 08/22/24 22:00 Temperature Pulse Rate 76 74 74 Respiratory Rate 18 18 18 Blood Pressure 138/94 H Pulse Oximetry 94 Oxygen Delivery Oxygen Flow Rate Fraction of Inspired Oxygen 08/22/24 22:00 08/22/24 22:30 08/22/24 22:56 Temperature Pulse Rate 75 105 H 70 Respiratory Rate 18 30 H Blood Pressure Pulse Oximetry 94 Oxygen Delivery Mechanical Ventilation Oxygen Flow Rate Fraction of Inspired Oxygen 35 08/22/24 23:20 08/22/24 23:40 08/22/24 23:45 Temperature Pulse Rate 105 H 107 H 107 H Respiratory Rate 24 H 26 H 26 H Blood Pressure Pulse Oximetry 94 Oxygen Delivery Mechanical Ventilation Oxygen Flow Rate Fraction of Inspired Oxygen 35 08/22/24 23:57 08/23/24 00:00 08/23/24 00:00 Temperature 97.9 F Pulse Rate 104 H 87 Respiratory Rate 18 Blood Pressure 152/96 H Pulse Oximetry 95 Oxygen Delivery Oxygen Flow Rate Fraction of Inspired Oxygen 35 08/23/24 00:00 08/23/24 00:00 08/23/24 00:00 Temperature Pulse Rate 87 87 87 Respiratory Rate 18 18 18 Blood Pressure Pulse Oximetry Oxygen Delivery Oxygen Flow Rate Fraction of Inspired Oxygen 08/23/24 01:00 08/23/24 01:15 08/23/24 02:00 Temperature Pulse Rate 72 89 Respiratory Rate 18 Blood Pressure Pulse Oximetry Oxygen Delivery Oxygen Flow Rate Fraction of Inspired Oxygen 35 08/23/24 02:00 08/23/24 02:00 08/23/24 02:00 Temperature Pulse Rate 89 89 89 Respiratory Rate 18 18 18 Blood Pressure 131/85 Pulse Oximetry 95 Oxygen Delivery Oxygen Flow Rate Fraction of Inspired Oxygen 08/23/24 02:00 08/23/24 02:38 08/23/24 03:35 Temperature Pulse Rate 80 88 77 Respiratory Rate 18 18 Blood Pressure Pulse Oximetry 96 96 Oxygen Delivery Mechanical Ventilation Mechanical Ventilation Oxygen Flow Rate Fraction of Inspired Oxygen 35 35 08/23/24 03:45 08/23/24 04:00 08/23/24 04:00 Temperature 99.0 F Pulse Rate 77 78 Respiratory Rate 18 Blood Pressure 160/98 H Pulse Oximetry 96 Oxygen Delivery Oxygen Flow Rate Fraction of Inspired Oxygen 35 08/23/24 04:00 08/23/24 04:00 08/23/24 04:55 Temperature Pulse Rate 78 78 75 Respiratory Rate 18 18 Blood Pressure Pulse Oximetry 95 Oxygen Delivery Mechanical Ventilation Oxygen Flow Rate Fraction of Inspired Oxygen 35 08/23/24 05:05 08/23/24 05:22 08/23/24 05:59 Temperature Pulse Rate 78 85 81 Respiratory Rate 18 18 18 Blood Pressure Pulse Oximetry Oxygen Delivery Oxygen Flow Rate Fraction of Inspired Oxygen 08/23/24 06:00 08/23/24 06:00 08/23/24 06:00 Temperature Pulse Rate 78 82 79 Respiratory Rate 18 18 18 Blood Pressure Pulse Oximetry Oxygen Delivery Oxygen Flow Rate Fraction of Inspired Oxygen 08/23/24 06:00 08/23/24 06:00 08/23/24 07:51 Temperature 99.2 F Pulse Rate 78 78 79 Respiratory Rate 18 18 Blood Pressure 144/91 H 140/95 H Pulse Oximetry 97 96 Oxygen Delivery Oxygen Flow Rate Fraction of Inspired Oxygen 08/23/24 08:00 08/23/24 08:00 08/23/24 08:00 Temperature 99.7 F H Pulse Rate 77 78 Respiratory Rate 18 Blood Pressure 144/93 H Pulse Oximetry 96 Oxygen Delivery Mechanical Ventilation Oxygen Flow Rate Fraction of Inspired Oxygen 35 08/23/24 08:00 08/23/24 08:00 08/23/24 08:00 Temperature Pulse Rate 77 77 Respiratory Rate 18 18 Blood Pressure Pulse Oximetry Oxygen Delivery Oxygen Flow Rate Fraction of Inspired Oxygen 35 08/23/24 08:00 08/23/24 08:09 08/23/24 08:09 Temperature Pulse Rate 77 75 Respiratory Rate 18 Blood Pressure 145/98 H Pulse Oximetry Oxygen Delivery Oxygen Flow Rate Fraction of Inspired Oxygen 35 08/23/24 08:15 08/23/24 08:30 08/23/24 08:45 Temperature Pulse Rate 76 84 79 Respiratory Rate Blood Pressure 146/101 H 158/104 H 157/99 H Pulse Oximetry Oxygen Delivery Oxygen Flow Rate Fraction of Inspired Oxygen 08/23/24 08:51 08/23/24 09:00 08/23/24 09:15 Temperature Pulse Rate 136 H 79 81 Respiratory Rate Blood Pressure 137/102 H 137/108 H Pulse Oximetry 99 Oxygen Delivery Mechanical Ventilation Oxygen Flow Rate Fraction of Inspired Oxygen 35 08/23/24 09:30 08/23/24 09:45 08/23/24 10:00 Temperature Pulse Rate 80 78 81 Respiratory Rate Blood Pressure 153/97 H 147/107 H 144/106 H Pulse Oximetry Oxygen Delivery Oxygen Flow Rate Fraction of Inspired Oxygen 08/23/24 10:00 08/23/24 10:00 08/23/24 10:00 Temperature Pulse Rate 78 78 78 Respiratory Rate 18 18 18 Blood Pressure Pulse Oximetry Oxygen Delivery Oxygen Flow Rate Fraction of Inspired Oxygen 08/23/24 10:00 08/23/24 10:00 08/23/24 10:15 Temperature 98.9 F Pulse Rate 78 78 80 Respiratory Rate 18 Blood Pressure 144/106 H 149/99 H Pulse Oximetry 96 Oxygen Delivery Oxygen Flow Rate Fraction of Inspired Oxygen 08/23/24 10:30 08/23/24 10:45 08/23/24 11:00 Temperature Pulse Rate 87 83 83 Respiratory Rate Blood Pressure 135/96 H 140/100 H 136/102 H Pulse Oximetry Oxygen Delivery Oxygen Flow Rate Fraction of Inspired Oxygen Intake/Output Intake/Output: Intake & Output 08/20/24 08/21/24 08/22/24 08/23/24 23:59 23:59 23:59 23:59 Intake Total 950.0 381.77 1326.4 687.6 Output Total 500 1500 1300 Balance 950.0 -118.23 -173.6 -612.4 Meds/Results Medications: Active Medications Generic Name Dose Route Start Last Admin Trade Name Freq PRN Reason Stop Dose Admin Acetaminophen 650 mg 08/20/24 07:34 08/20/24 14:03 Acetaminophen 325 Mg Tablet PO 650 mg Q4H PRN Administration Mild Pain (1-3) or Fever Albuterol 2.5 mg 08/20/24 15:12 Albuterol Sulfate Neb 2.5 Mg/3 Ml Inh INHALATION Q6HRT PRN Wheezing Albuterol 2 puff 08/20/24 15:12 Albuterol Sulfate (*Sp) Aerosol 1 Puff INHALATION Q6HRT PRN Wheezing Amlodipine Besylate 10 mg 08/20/24 15:15 08/22/24 08:38 Amlodipine Besylate 10 Mg Tablet PO Not Given DAILY JOSÉ MIGUEL Aspirin 81 mg 08/21/24 09:00 08/22/24 08:38 Aspirin 81 Mg Enteric Tablet PO Not Given QAM JOSÉ MIGUEL Calcium Acetate 667 mg 08/20/24 17:00 08/22/24 17:36 Calcium Acetate 667 Mg Tablet PO Not Given TIDWM JOSÉ MIGUEL Carvedilol 25 mg 08/20/24 15:15 08/22/24 08:38 Carvedilol 12.5 Mg Tablet PO Not Given Q12HR JOSÉ MIGUEL Clonidine HCl 0.2 mg 08/20/24 22:00 08/22/24 16:51 Clonidine Hcl 0.2 Mg Tablet PO Not Given Q8HR JOSÉ MIGUEL Dextrose 12.5 gm 08/21/24 14:30 Dextrose 50% 25 Gm/50 Ml Syringe IV PUSH PRN PRN Hypoglycemia Protocol Dolutegravir Sodium 50 mg 08/20/24 21:00 08/22/24 20:20 Dolutegravir Sodium 50 Mg Tablet PO 50 mg Q12HR JOSÉ MIGUEL Administration Doxazosin Mesylate 8 mg 08/20/24 21:00 08/21/24 23:02 Doxazosin Mesylate 4 Mg Tablet PO Not Given HS JOSÉ MIGUEL Entecavir 0.5 mg 08/22/24 14:00 08/22/24 16:51 Entecavir 0.5 Mg Tablet PO Not Given WEEKLY@1400 [facility] Epoetin Robbie-epbx 4,000 units 08/23/24 17:31 08/23/24 10:02 Epoetin Robbie-Epbx 4,000 Units/Ml Vial IV PUSH 08/23/24 17:32 4,000 units ONCE ONE Administration Folic Acid 1 mg 08/21/24 09:00 08/22/24 08:38 Folic Acid 1 Mg Tablet PO Not Given DAILY JOSÉ MIGUEL Glucagon 1 mg 08/21/24 14:30 Glucagon For Inj 1 Mg Vial IM PRN PRN Hypoglycemia Protocol Glucose 15 gm 08/21/24 14:30 Glucose Oral Gel 15 Gm Of Glucse In 37.5 Gm Tube PO PRN PRN Hypoglycemia Protocol Hydralazine HCl 20 mg 08/20/24 07:47 08/22/24 11:44 Hydralazine Hcl 20 Mg/Ml Vial IV PUSH 20 mg Q6HR PRN Administration Hypertension Metronidazole 500 mg in 100 mls @ 100 mls/hr 08/20/24 18:00 08/23/24 07:39 Flagyl 500 Mg/Iso Soln 100 Ml IVPB Infused Q8HR JOSÉ MIGUEL Infusion Albumin Human 50 mls @ 999 mls/hr 08/21/24 06:01 08/23/24 07:39 Albutein IVPB 09/20/24 06:00 Infused Q10M PRN Infusion HYPOTENSION Cefepime HCl 1 gm in 50 mls @ 100 mls/hr 08/22/24 21:00 08/22/24 22:17 Maxipime 1 Gm/Ns 50 Ml IVPB Infused QHS JOSÉ MIGUEL Infusion Acyclovir Sodium 425 mg/ 258.5 mls @ 250 mls/hr 08/21/24 15:00 08/22/24 21:25 Dextrose IVPB Infused DAILY@1500 JOSÉ MIGUEL Infusion Ampicillin Sodium 2 gm in 100 mls @ 200 mls/hr 08/21/24 16:00 08/23/24 07:39 Ampicillin 2 Gm/Ns 100 Ml IVPB Infused Q12H JOSÉ MIGUEL Infusion Dextrose 1,000 mls @ 100 mls/hr 08/21/24 14:30 Dextrose 5% 1,000 Ml IVPB PRN PRN Hypoglycemia Protocol Propofol 100 mls @ 0 mls/hr 08/22/24 14:05 08/23/24 10:00 Diprivan IV CONT 0 mcg/kg/min .Q0M JOSÉ MIGUEL 0 mls/hr Titration Protocol Fentanyl Citrate 2,500 mcg in 250 mls @ 15 mls/hr 08/22/24 14:40 08/23/24 10:00 Fentanyl 2,500 Mcg/Ns 250 Ml IV CONT 150 mcg/hr .[id number] JOSÉ MIGUEL 15 mls/hr Titration Protocol 150 MCG/HR Midazolam HCl 100 mg in 100 mls @ 8 mls/hr 08/22/24 17:10 08/23/24 10:00 Versed 100 Mg/Ns 100 Ml IV CONT 8 mg/hr .[id number] JOSÉ MIGUEL 8 mls/hr Titration Protocol 8 MG/HR Vancomycin HCl 500 mg in 100 mls @ 100 mls/hr 08/23/24 13:00 Vancomycin 500 Mg/Ns 100 Ml IVPB 08/23/24 13:59 ONCE ONE Insulin Aspart 2 - 5 units 08/21/24 18:00 08/23/24 05:53 Insulin Aspart (*Bkc) 100 Units/Ml SUB-Q Not Given Q6HR [facility] Protocol Labetalol HCl 20 mg 08/21/24 14:31 08/22/24 04:05 Labetalol Hcl Inj 100 Mg/20 Ml Vial IV PUSH 20 mg Q4H PRN Administration SBP > 160 and HR> 60 -1st choice Losartan Potassium 100 mg 08/21/24 09:00 08/22/24 08:38 Losartan Potassium 100 Mg Tablet PO Not Given DAILY [facility] Midazolam HCl 2 mg 08/22/24 14:39 08/23/24 08:23 Midazolam Hcl (*Crx) 2 Mg/2 Ml Vial IV PUSH 2 mg Q5M PRN Administration ventilator asynchrony Minoxidil 5 mg 08/20/24 21:00 08/22/24 08:39 Minoxidil 2.5 Mg Tablet PO Not Given Q12HR [facility] Multi-Ingred Cream/Lotion/Oil/Oint 1 applic 08/21/24 21:00 08/22/24 20:20 Mineral Oil/White Petrolatum Ointment EACH EYE 1 applic Q12HR JOSÉ MIGUEL Administration * Home Med * 1 tablet 08/21/24 09:00 08/22/24 08:38 Darunavir-Cobicistat PO 09/20/24 08:59 Not Given [Prezcobix] 800-150 DAILY JOSÉ MIGUEL Mg-Mg Tablet * Home Med * 600 mg 08/20/24 17:00 08/22/24 17:36 Fostemsavir [Rukobia PO 09/19/24 16:59 Not Given ] 600 Mg Tablet BID JOSÉ MIGUEL Extended Release 12 Hr Ondansetron HCl 4 mg 08/20/24 07:34 Ondansetron Inj 4 Mg/2 Ml Vial IV PUSH Q6H PRN Nausea And Vomiting Pantoprazole Sodium 40 mg 08/23/24 09:00 Pantoprazole Sodium Iv 40 Mg Vial IV PUSH QAM JOSÉ MIGUEL Fluticasone/Salmeterol 2 puff 08/20/24 20:00 08/23/24 08:12 Fluticasone/Salmeterol 115-21 Mcg Inhaler 1 Puff INHALATION Not Given Q12HRT JOSÉ MIGUEL Senna/Docusate Sodium 2 tab 08/20/24 21:00 08/22/24 20:20 Senna/Docusate Sodium Tablet PO 2 tab Q12HR JOSÉ MIGUEL Administration Sertraline HCl 50 mg 08/21/24 09:00 08/21/24 11:52 Sertraline Hcl 50 Mg Tablet PO Not Given DAILY JOSÉ MIGUEL Sodium Chloride 1 spray 08/20/24 17:00 08/22/24 20:21 Saline 0.65% Gelacio Soln 44 Ml Btl NASAL Not Given QID JOSÉ MIGUEL Trazodone HCl 25 mg 08/20/24 21:00 08/20/24 20:34 Trazodone Hcl 25 Mg Tablet PO Not Given HS JOSÉ MIGUEL Trimethoprim/Sulfamethoxazole 1 tab 08/24/24 09:00 Sulfamethoxazole/Trimethoprim 400/80 Mg Tablet FEED TUBE QAM JOSÉ MIGUEL Vancomycin HCl 1 each 08/19/24 22:39 Vancomycin For Hemodialysis IVPB PRN PRN Vancomycin Protocol Vitamin D 5,000 units 08/21/24 09:00 08/22/24 08:38 Cholecalciferol 5,000 Units Tablet PO Not Given DAILY JOSÉ MIGUEL Radiology Results: ITS Impressions Chest/Abdomen/Pelvis CT 08/20/24 07:41 IMPRESSION: Mural thickening within the colon, with diffuse anasarca. Head CT 08/21/24 22:51 Impression: No acute intracranial hemorrhage or suspicious mass effect. Inflammatory sinus disease. Central Venous Line 08/22/24 13:55 IMPRESSION: 1. Right internal jugular central venous catheter tip near the superior cavoatrial junction. See procedure note for further detail. Abdomen X-Ray 08/22/24 14:49 IMPRESSION: 1. Endotracheal tube tip 7.4 cm above the heather. Recommend advancement by 5 cm. 2. Orogastric tube in expected position in the stomach. 2. Improvement in prior bilateral airspace opacities with residual mild streaky opacities at left lung base most likely atelectasis with differential including minimal pulmonary edema or pneumonia. Lumbar Puncture Fluoroscopy 08/22/24 15:50 IMPRESSION: 1. Successful fluoro-guided lumbar puncture with normal opening pressure of 15 cm water. Chest X-Ray 08/23/24 06:20 Impression: Mild haziness left lung base. Correlate for atelectasis or pneumonia. Support tubes, as above. Labs Labs: Laboratory Results - last 24 hr 08/21/24 08/22/24 08/22/24 05:23 04:14 11:41 WBC RBC Hgb Hct MCV MCH MCHC RDW Plt Count MPV Immature Gran % (Auto) Neut % (Auto) Lymph % (Auto) Johnson % (Auto) Eos % (Auto) Baso % (Auto) Lymph # (Auto) Johnson # (Auto) Eos # (Auto) Baso # (Auto) Abs Immat Gran (auto) Absolute Neuts (auto) Absolute Nucleated RBC Band Neutrophils % Nucleated RBC % Platelet Estimate % Immature Plt Fraction Hypochromasia Anisocytosis Target Cells Tear Drop Cells Schistocytes Puncture Site ABG pH ABG pCO2 ABG pO2 ABG PO2/FiO2 Ratio ABG HCO3 ABG O2 Saturation ABG O2 Content ABG Base Excess A-a Gradient Oxyhemoglobin Carboxyhemoglobin Methemoglobin Reduced Hemoglobin Total Hemoglobin O2 Delivery Device O2 Liters/Min Minute Volume Vent Rate Vent Mode FiO2 Tidal Volume PEEP Peak Inspir Pressure Pressure Support Sodium Potassium Chloride Carbon Dioxide Anion Gap BUN Creatinine Estim Creat Clear Calc Estimated GFR Glucose POC Capillary Glucose 84 Calcium Phosphorus Magnesium Total Bilirubin AST ALT Alkaline Phosphatase Total Protein Albumin Triglycerides 68 CSF Source CSF Appearance CSF Color CSF RBC CSF Tot Nucleated Cells CSF Neutrophils CSF Lymphocytes CSF Monocytes CSF Macrophages CSF Glucose CSF Total Protein Random Vancomycin Absolute Lymphocytes 610 L % CD4 Cells 10 L Absolute CD4 Count 63 L HIV-1 RNA logcopies/mL <1.30 detected A HIV-1 RNA PCR copies/ml <20 detected A 08/22/24 08/22/24 08/22/24 15:29 17:49 17:51 WBC RBC Hgb Hct MCV MCH MCHC RDW Plt Count MPV Immature Gran % (Auto) Neut % (Auto) Lymph % (Auto) Johnson % (Auto) Eos % (Auto) Baso % (Auto) Lymph # (Auto) Johnson # (Auto) Eos # (Auto) Baso # (Auto) Abs Immat Gran (auto) Absolute Neuts (auto) Absolute Nucleated RBC Band Neutrophils % Nucleated RBC % Platelet Estimate % Immature Plt Fraction Hypochromasia Anisocytosis Target Cells Tear Drop Cells Schistocytes Puncture Site Right radial ABG pH 7.412 ABG pCO2 43.0 ABG pO2 83.0 ABG PO2/FiO2 Ratio 2.37 ABG HCO3 26.8 H ABG O2 Saturation 96.3 ABG O2 Content 12.1 L ABG Base Excess 1.9 A-a Gradient 116.6 Oxyhemoglobin 92.9 Carboxyhemoglobin Methemoglobin Reduced Hemoglobin Total Hemoglobin 9.2 L O2 Delivery Device Ventilator O2 Liters/Min Not Reportable Minute Volume Not Reportable Vent Rate 18 Vent Mode Cmv FiO2 35 Tidal Volume 450 PEEP 5 Peak Inspir Pressure Not Reportable Pressure Support Not Reportable Sodium Potassium Chloride Carbon Dioxide Anion Gap BUN Creatinine Estim Creat Clear Calc Estimated GFR Glucose POC Capillary Glucose 81 Calcium Phosphorus Magnesium Total Bilirubin AST ALT Alkaline Phosphatase Total Protein Albumin Triglycerides CSF Source Csf CSF Appearance Clear CSF Color Colorless CSF RBC 2 CSF Tot Nucleated Cells 6 H CSF Neutrophils 0 CSF Lymphocytes 90 H CSF Monocytes 2 L CSF Macrophages 8 CSF Glucose 59 CSF Total Protein 94 H Random Vancomycin Absolute Lymphocytes % CD4 Cells Absolute CD4 Count HIV-1 RNA logcopies/mL HIV-1 RNA PCR copies/ml 08/22/24 08/23/24 08/23/24 23:33 04:47 04:51 WBC 3.3 L RBC 3.24 L Hgb 10.0 L Hct 31.4 L MCV 96.9 MCH 30.9 MCHC 31.8 L RDW 19.7 H Plt Count 78 L MPV 10.6 H Immature Gran % (Auto) 0.3 Neut % (Auto) 70.3 Lymph % (Auto) 10.4 L Johnson % (Auto) 9.2 H Eos % (Auto) 9.2 H Baso % (Auto) 0.6 Lymph # (Auto) 0.34 L Johnson # (Auto) 0.3 Eos # (Auto) 0.3 Baso # (Auto) 0.0 Abs Immat Gran (auto) 0.01 Absolute Neuts (auto) 2.3 Absolute Nucleated RBC 0.000 Band Neutrophils % 0 Nucleated RBC % 0.0 Platelet Estimate Decreased % Immature Plt Fraction 3.4 Hypochromasia 1+ Anisocytosis 1+ Target Cells 1+ Tear Drop Cells 1+ Schistocytes None seen Puncture Site Right radial ABG pH 7.454 H ABG pCO2 44.0 ABG pO2 66.4 L ABG PO2/FiO2 Ratio 1.90 ABG HCO3 30.2 H ABG O2 Saturation 93.9 L ABG O2 Content 13.3 L ABG Base Excess 5.6 A-a Gradient 132.0 Oxyhemoglobin 90.5 Carboxyhemoglobin 1.7 Methemoglobin 0.3 Reduced Hemoglobin 7.5 H Total Hemoglobin 10.4 L O2 Delivery Device Ventilator O2 Liters/Min Not Reportable Minute Volume Not Reportable Vent Rate 18 Vent Mode Cmv FiO2 35 Tidal Volume 450 PEEP 5 Peak Inspir Pressure Not Reportable Pressure Support Not Reportable Sodium 143 Potassium 3.9 Chloride 97 L Carbon Dioxide 34 H Anion Gap 12 BUN 36 H D Creatinine 8.47 H Estim Creat Clear Calc 9 Estimated GFR 6 L Glucose 78 POC Capillary Glucose 87 Calcium 8.3 L Phosphorus 4.7 H Magnesium 2.2 Total Bilirubin 0.7 AST 38 ALT 37 Alkaline Phosphatase 67 Total Protein 8.0 Albumin 4.2 Triglycerides CSF Source CSF Appearance CSF Color CSF RBC CSF Tot Nucleated Cells CSF Neutrophils CSF Lymphocytes CSF Monocytes CSF Macrophages CSF Glucose CSF Total Protein Random Vancomycin 20.5 H Absolute Lymphocytes % CD4 Cells Absolute CD4 Count HIV-1 RNA logcopies/mL HIV-1 RNA PCR copies/ml
[2024-08-23 11:26] LABS: Glucose Point of Care 80 mg/dl (65-105)
[2024-08-23] MEDS: HEPARIN SODIUM 1,000 UNITS/ML VIAL 6000 UNITS IV PUSH (11:57)
--- NOTE | 2024-08-23 12:04 | PCFNICU ---
ICU Rounding Note: Pt current nutrition is NPO. Last recorded weight is 79.7 kg. Bowel Motility: +BM reported 4/2 Labs Reviewed: PO4 4.7, GFR 6, BUN 36, Cr 8.47 Meds Noted: Versed, Fentanyl Skin: WNL Additional Notes: Spoke with [employer] today regarding nutrition. Plans to keep NPO today. NGT output > 2000 reported. Dialysis today. Following daily in ICU rounds .
[2024-08-23] MEDS: ASPIRIN 81 MG ENTERIC TABLET PO (12:21)
[2024-08-23] MEDS: CALCIUM ACETATE 667 MG TABLET PO (12:21)
[2024-08-23] MEDS: FOLIC ACID 1 MG TABLET PO (12:21)
[2024-08-23] MEDS: CHOLECALCIFEROL 5,000 UNITS TABLET 5000 UNITS PO (12:21)
[2024-08-23] MEDS: PANTOPRAZOLE SODIUM IV 40 MG VIAL IV PUSH (12:21)
[2024-08-23] MEDS: DOLUTEGRAVIR SODIUM 50 MG TABLET PO (12:21)
[2024-08-23] MEDS: SENNA/DOCUSATE SODIUM TABLET 2 TAB PO (12:21)
[2024-08-23] MEDS: SALINE 0.65% NAS SOLN 44 ML BTL 1 SPRAY NASAL (12:22)
[2024-08-23] MEDS: MINERAL OIL/WHITE PETROLATUM OINTMENT 1 APPLIC EACH EYE (12:22)
[2024-08-23] MEDS: DARUNAVIR COBICISTAT 1 EACH PO (12:22)
[2024-08-23] MEDS: [UNRECOGNIZED DRUG - OTHER] 600 EACH PO (12:23)
[2024-08-23] MEDS: VANCOMYCIN 500 MG/NS 100 ML 500 MG/100 ML BAG 100 MG IVPB (12:23)
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
--- NOTE | 2024-08-23 14:57 | PC.NURSE ---
Notified Hilary at [facility] and Radha at the [facility] transfer center that EMS in route with patient to [facility]. Patient left at 1450.
--- NOTE | 2024-08-23 15:49 | WPDANESPN ---
Anes - Prog Note Post-Op Date/Time: 08/23/24 15:49 Cardiovascular status: normal Respiratory status: normal Airway patency: baseline Mental status: baseline Post-Op hydration status: normal Vital Signs: Last Vital Signs Temp 36.6 C 08/23/24 14:00 Pulse 83 08/23/24 14:00 Resp 18 08/23/24 14:00 BP 162/104 H 08/23/24 14:00 Pulse Ox 94 08/23/24 14:00 O2 Del Method Mechanical Ventilation 08/23/24 13:40 O2 Flow Rate 2 08/22/24 11:30 FiO2 35 08/23/24 13:40 Pain Score (VAS): 1 I/O: Intake & Output 08/22/24 08/23/24 08/23/24 23:59 07:59 15:59 Intake Total 851.9 595.6 284 Output Total 1500 1300 2200 Balance -648.1 -704.4 -1916 Laboratory Tests 08/23/24 04:47 08/23/24 04:47 08/21/24 08/22/24 08/22/24 05:23 15:29 15:29 WBC RBC Hgb Hct MCV MCH MCHC RDW Plt Count MPV Immature Gran % (Auto) Neut % (Auto) Lymph % (Auto) [place] % (Auto) Eos % (Auto) Baso % (Auto) Lymph # (Auto) [place] # (Auto) Eos # (Auto) Baso # (Auto) Abs Immat Gran (auto) Absolute Neuts (auto) Absolute Nucleated RBC Band Neutrophils % Nucleated RBC % Platelet Estimate % Immature Plt Fraction Hypochromasia Anisocytosis Target Cells Tear Drop Cells Schistocytes Puncture Site ABG pH ABG pCO2 ABG pO2 ABG PO2/FiO2 Ratio ABG HCO3 ABG O2 Saturation ABG O2 Content ABG Base Excess A-a Gradient Oxyhemoglobin Carboxyhemoglobin Methemoglobin Reduced Hemoglobin Total Hemoglobin O2 Delivery Device O2 Liters/Min Minute Volume Vent Rate Vent Mode FiO2 Tidal Volume PEEP Peak Inspir Pressure Pressure Support Sodium Potassium Chloride Carbon Dioxide Anion Gap BUN Creatinine Estim Creat Clear Calc Estimated GFR Glucose POC Capillary Glucose Calcium Phosphorus Magnesium Total Bilirubin AST ALT Alkaline Phosphatase Total Protein Albumin Fluid EBV Source Pending CSF Source Csf Pending CSF Appearance Clear CSF Color Colorless CSF RBC 2 CSF Tot Nucleated Cells 6 H CSF Neutrophils 0 CSF Lymphocytes 90 H CSF Monocytes 2 L CSF Macrophages 8 CSF Glucose 59 CSF Total Protein 94 H CSF VDRL Pending CSF Cryptococcus Interp Pending CSF EBV DNA (PCR) Pending CSF Herpes I DNA (PCR) Pending CSF Herpes II DNA (PCR) Pending CSF [place] RNA Pending Random Vancomycin Absolute Lymphocytes 610 L % CD4 Cells 10 L Absolute CD4 Count 63 L Cryptococcus Source Pending Cryptococcus Ag Pending HSV (PCR) Source Pending Toxoplasma IgM Ab 08/22/24 08/22/24 08/22/24 17:49 17:51 23:33 WBC RBC Hgb Hct MCV MCH MCHC RDW Plt Count MPV Immature Gran % (Auto) Neut % (Auto) Lymph % (Auto) [place] % (Auto) Eos % (Auto) Baso % (Auto) Lymph # (Auto) [place] # (Auto) Eos # (Auto) Baso # (Auto) Abs Immat Gran (auto) Absolute Neuts (auto) Absolute Nucleated RBC Band Neutrophils % Nucleated RBC % Platelet Estimate % Immature Plt Fraction Hypochromasia Anisocytosis Target Cells Tear Drop Cells Schistocytes Puncture Site Right radial ABG pH 7.412 ABG pCO2 43.0 ABG pO2 83.0 ABG PO2/FiO2 Ratio 2.37 ABG HCO3 26.8 H ABG O2 Saturation 96.3 ABG O2 Content 12.1 L ABG Base Excess 1.9 A-a Gradient 116.6 Oxyhemoglobin 92.9 Carboxyhemoglobin Methemoglobin Reduced Hemoglobin Total Hemoglobin 9.2 L O2 Delivery Device Ventilator O2 Liters/Min Not Reportable Minute Volume Not Reportable Vent Rate 18 Vent Mode Cmv FiO2 35 Tidal Volume 450 PEEP 5 Peak Inspir Pressure Not Reportable Pressure Support Not Reportable Sodium Potassium Chloride Carbon Dioxide Anion Gap BUN Creatinine Estim Creat Clear Calc Estimated GFR Glucose POC Capillary Glucose 81 87 Calcium Phosphorus Magnesium Total Bilirubin AST ALT Alkaline Phosphatase Total Protein Albumin Fluid EBV Source CSF Source CSF Appearance CSF Color CSF RBC CSF Tot Nucleated Cells CSF Neutrophils CSF Lymphocytes CSF Monocytes CSF Macrophages CSF Glucose CSF Total Protein CSF VDRL CSF Cryptococcus Interp CSF EBV DNA (PCR) CSF Herpes I DNA (PCR) CSF Herpes II DNA (PCR) CSF [place] RNA Random Vancomycin Absolute Lymphocytes % CD4 Cells Absolute CD4 Count Cryptococcus Source Cryptococcus Ag HSV (PCR) Source Toxoplasma IgM Ab 08/23/24 08/23/24 08/23/24 04:40 04:47 04:51 WBC 3.3 L RBC 3.24 L Hgb 10.0 L Hct 31.4 L MCV 96.9 MCH 30.9 MCHC 31.8 L RDW 19.7 H Plt Count 78 L MPV 10.6 H Immature Gran % (Auto) 0.3 Neut % (Auto) 70.3 Lymph % (Auto) 10.4 L [place] % (Auto) 9.2 H Eos % (Auto) 9.2 H Baso % (Auto) 0.6 Lymph # (Auto) 0.34 L [place] # (Auto) 0.3 Eos # (Auto) 0.3 Baso # (Auto) 0.0 Abs Immat Gran (auto) 0.01 Absolute Neuts (auto) 2.3 Absolute Nucleated RBC 0.000 Band Neutrophils % 0 Nucleated RBC % 0.0 Platelet Estimate Decreased % Immature Plt Fraction 3.4 Hypochromasia 1+ Anisocytosis 1+ Target Cells 1+ Tear Drop Cells 1+ Schistocytes None seen Puncture Site Right radial ABG pH 7.454 H ABG pCO2 44.0 ABG pO2 66.4 L ABG PO2/FiO2 Ratio 1.90 ABG HCO3 30.2 H ABG O2 Saturation 93.9 L ABG O2 Content 13.3 L ABG Base Excess 5.6 A-a Gradient 132.0 Oxyhemoglobin 90.5 Carboxyhemoglobin 1.7 Methemoglobin 0.3 Reduced Hemoglobin 7.5 H Total Hemoglobin 10.4 L O2 Delivery Device Ventilator O2 Liters/Min Not Reportable Minute Volume Not Reportable Vent Rate 18 Vent Mode Cmv FiO2 35 Tidal Volume 450 PEEP 5 Peak Inspir Pressure Not Reportable Pressure Support Not Reportable Sodium 143 Potassium 3.9 Chloride 97 L Carbon Dioxide 34 H Anion Gap 12 BUN 36 H D Creatinine 8.47 H Estim Creat Clear Calc 9 Estimated GFR 6 L Glucose 78 POC Capillary Glucose Calcium 8.3 L Phosphorus 4.7 H Magnesium 2.2 Total Bilirubin 0.7 AST 38 ALT 37 Alkaline Phosphatase 67 Total Protein 8.0 Albumin 4.2 Fluid EBV Source CSF Source CSF Appearance CSF Color CSF RBC CSF Tot Nucleated Cells CSF Neutrophils CSF Lymphocytes CSF Monocytes CSF Macrophages CSF Glucose CSF Total Protein CSF VDRL CSF Cryptococcus Interp CSF EBV DNA (PCR) CSF Herpes I DNA (PCR) CSF Herpes II DNA (PCR) CSF [place] RNA Random Vancomycin 20.5 H Absolute Lymphocytes % CD4 Cells Absolute CD4 Count Cryptococcus Source Cryptococcus Ag HSV (PCR) Source Toxoplasma IgM Ab Pending 08/23/24 11:14 WBC RBC Hgb Hct MCV MCH MCHC RDW Plt Count MPV Immature Gran % (Auto) Neut % (Auto) Lymph % (Auto) [place] % (Auto) Eos % (Auto) Baso % (Auto) Lymph # (Auto) [place] # (Auto) Eos # (Auto) Baso # (Auto) Abs Immat Gran (auto) Absolute Neuts (auto) Absolute Nucleated RBC Band Neutrophils % Nucleated RBC % Platelet Estimate % Immature Plt Fraction Hypochromasia Anisocytosis Target Cells Tear Drop Cells Schistocytes Puncture Site ABG pH ABG pCO2 ABG pO2 ABG PO2/FiO2 Ratio ABG HCO3 ABG O2 Saturation ABG O2 Content ABG Base Excess A-a Gradient Oxyhemoglobin Carboxyhemoglobin Methemoglobin Reduced Hemoglobin Total Hemoglobin O2 Delivery Device O2 Liters/Min Minute Volume Vent Rate Vent Mode FiO2 Tidal Volume PEEP Peak Inspir Pressure Pressure Support Sodium Potassium Chloride Carbon Dioxide Anion Gap BUN Creatinine Estim Creat Clear Calc Estimated GFR Glucose POC Capillary Glucose 80 Calcium Phosphorus Magnesium Total Bilirubin AST ALT Alkaline Phosphatase Total Protein Albumin Fluid EBV Source CSF Source CSF Appearance CSF Color CSF RBC CSF Tot Nucleated Cells CSF Neutrophils CSF Lymphocytes CSF Monocytes CSF Macrophages CSF Glucose CSF Total Protein CSF VDRL CSF Cryptococcus Interp CSF EBV DNA (PCR) CSF Herpes I DNA (PCR) CSF Herpes II DNA (PCR) CSF [place] RNA Random Vancomycin Absolute Lymphocytes % CD4 Cells Absolute CD4 Count Cryptococcus Source Cryptococcus Ag HSV (PCR) Source Toxoplasma IgM Ab Microbiology 08/22/24 15:29 Cerebral Spinal Fluid Gram Stain - Final 08/22/24 15:29 Cerebral Spinal Fluid CSF Culture - Preliminary Post-procedural complaints: none Patient Feedback: Patient satisfied with anesthetic care.
[2024-08-24 18:33] LABS: West Nile Virus, IgM <0.90 index
[2024-08-25 03:23] LABS: Toxoplasma IgM Antibody <8.00 AU/mL
[2024-08-29 07:33] LABS: Source Epstein Barr Virus CSF
[2024-08-29 07:34] LABS: Epstein Barr Virus DNA PCR Not Detected
[2024-08-29 07:35] LABS: Cryptococcus Specimen Source CSF
[2024-08-29 07:36] LABS: Cryptococcus Antigen Not Detected
[2024-08-29 07:37] LABS: Source CSF
[2024-08-29 07:38] LABS: Herpes Simplex Type 2 DNA PCR Not Detected
[2024-08-29 07:39] LABS: Herpes Simplex Type 1 DNA PCR Not Detected
[2024-08-30 07:37] LABS: VDRL Quantitative CSF Non-Reactive
== END 2024-08-23 14:46 | disposition short-term general hospital (02) | DRG 91 ==
LOC: ANHED 08-20 06:48 → ANH3MEDSUR 08-20 07:27 → ANH3MED 08-20 09:42 → ANHICU 08-21 16:04 → ANH3MED 08-24 09:33
PROVIDERS: Internal Medicine; Internal Medicine Nephrology; Nurse Practitioner Family; Surgery; Admitting Provider Internal Medicine; Emergency Provider Emergency Medicine; PCP Physician Assistant; Visit Provider Internal Medicine
PROC: 0JH63XZ Insertion of Tunneled Vascular Access Device into Chest Subcutaneous Tissue and Fascia, Percutaneous Approach (ICD-10-PCS; CPT 36908; principal; 2024-08-22 12:30)
DX: G92.8 Other toxic encephalopathy (principal); J96.01 Acute respiratory failure with hypoxia; N18.6 End stage renal disease; B20 Human immunodeficiency virus [HIV] disease; A87.9 Viral meningitis, unspecified; I12.0 Hypertensive chronic kidney disease with stage 5 chronic kidney disease or end stage renal disease; T82.42XA Displacement of vascular dialysis catheter, initial encounter; A86 Unspecified viral encephalitis; T42.8X5A Adverse effect of antiparkinsonism drugs and other central muscle-tone depressants, initial encounter; Y82.8 Other medical devices associated with adverse incidents; F12.90 Cannabis use, unspecified, uncomplicated; D64.9 Anemia, unspecified; K21.9 Gastro-esophageal reflux disease without esophagitis; D69.59 Other secondary thrombocytopenia; J44.9 Chronic obstructive pulmonary disease, unspecified; R45.1 Restlessness and agitation; Z99.2 Dependence on renal dialysis; Z87.891 Personal history of nicotine dependence
CPT/HCPCS: 36415; 36600; 62328; 70450; 71045; 71250; 74176; 77001; 80053; 80202; 82077; 82140; 82375; 82550; 82805; 82945; 82948; 83050; 83605; 83690; 83735; 84100; 84157; 84439; 84443; 84478; 84480; 84484; 85014; 85018; 85025; 85055; 85610; 85730; 86140; 86361; 86403; 86592; 86706; 86778; 86788; 87040; 87070; 87102; 87206; 87340; 87529; 87536; 87637; 87641; 87798; 89051; 93005; 94002; 94003; 94640; 96365; 96366; 96367; 96372; 96375; 96376; 99285; A9270; C1750; C1769; G0257; G0378; J0133; J0290; J0330; J0360; J0692; J1644; J1836; J2004; J2060; J2250; J2371; J2405; J2470; J2550; J2704; J3010; J3370; J7030; J7060; P9047; Q5105

== ENCOUNTER 2024-09-27 20:33 | Observation (INO) | payer MEDICARE, MEDICAID, SELFPAY ==
--- NOTE | ~2024-09-27 | XR_ITS ---
CHEST RADIOGRAPH CLINICAL HISTORY: CAMMIE; missed dialysis, h/o COPD, CHF . COMPARISON: 08/23/2024 TECHNIQUE: Single portable view of the chest. FINDINGS Right internal jugular tunneled central venous hemodialysis catheter identified with its tip ejecting over the cavoatrial junction. Query its functionality, secondary to positioning. The remainder of the cardiomediastinal silhouette is otherwise unremarkable. Increased interstitial markings are identified bilaterally, findings suggesting mild pulmonary vascul ar congestion. The lungs are otherwise clear. IMPRESSION: Pulmonary vascular congestion, without focal infiltrate or effusion. Reviewed, dictated and finalized at location A.
[2024-09-27 20:33] VITALS: BP 159/96; PULSE 69; RESP 17; TEMP 36.4; O2SAT 94
[2024-09-27 20:37] VITALS: PULSE 71; RESP 18
[2024-09-27] MEDS: IPRATROPIUM 0.5 MG/ALBUTEROL SULFATE 2.5 MG AMPUL.NEB 3 ML INHALATION (20:37)
--- NOTE | 2024-09-27 20:37 | ECG_ITS ---
Test Date: 2024-09-27 20:43:59 Measurements Intervals [place] Rate: 67 P: 40 VA: 221 QRS: 38 QRSD: 95 T: 42 QT: 410 QTc: 433 Interpretive Statements SINUS RHYTHM WITH FIRST DEGREE AV BLOCK Compared to ECG 08/20/2024 05:45:59 NO SIGNIFICANT CHANGES Electronically Signed On 09-28-2024 10:06:16 CDT by Alicia Day M.D.
[2024-09-27 20:45] VITALS: PULSE 74; RESP 16
--- OUTSIDE RECORDS SUMMARY | 2024-09-27 21:13 | XMS_ITS | Encounter Summary ---
Author Organization [facility] Address [facility] [place] [address] Care Team Providers Care Water Treatment Plant Repairer Name Role Phone Josh Parham MD Primary Care Provider Josh Parham MD Unavailable [phone] Josh Praham MD Unavailable [phone] Josh Parham MD Unavailable [phone] [facility], [facility] Kidney Unavailable Josh Parham MD Unavailable [phone] Cami Aguilar RN Unavailable [phone] Charu Carter LEGAL MANAGER-DIRECTOR OF WORKFORCE DEVELOPMENT Unavailable Josh Parham MD Unavailable [phone] Idris Sanchez Md, MD Primary Care Provider Josh Parham MD Unavailable Isabela Zacarias RN Unavailable Poly Rebollar APNP-DIRECTOR OF WORKFORCE DEVELOPMENT Primary Care Provider Unavailable Encounter Details Date Type Department Care Team (Late st Contact Info) Description 06/30/2016 [facility] Outpatient Visit [facility] [address] [place] [address] [place] [address] [facility] [address] [place] [phone] Social History Tobacco Use Types Packs/Day Years Used Date Smoking Tobacco: Every Day Cigarettes 1 31 Started: 07/23/1983; Last attempted to quit: 07/22/2014 Smokeless Tobacco: Never Alcohol Use Standard Drinks/Week Comments Yes 0 (1 standard drink = 0.6 oz pur e alcohol) Sex and Gender Information Value Date Recorded Sex Assigned at Male 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 Sex Male 6:40 AM SWEEPER O[employer] Gender Identity Male 07/03/2021 7: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 SWEEPER OPER[employer] Sexual Orientation Not on file documented as of this encounter Plan of Treatment Upcoming Encounters Date Type Department Care Team (Late st Contact Info) Description 10/24/2024 3:00 PM CDT Office Visit [facility] - Dermatology [address] [phone] Stalin Hand MD [address] [place] [address] [place] [address] 12/28/2024 1:00 PM CDT Office Visit [facility] - Dermatology [address] [phone] Aleksandr Ngo MD [address] [place] [address]T OF DERMATOLOGY [address] [place] [phone] documented as of this encounter Visit Diagnoses Not on filedocumented in this encounter Additional Health Concerns Infection Onset Date Last Indicated Resolved Time COVID-19 Under Investigation 09/04/2024 09/04/2024 09/04/2024 9:09 PM CDT documented as of this encounter Care Teams Water Treatment Plant Repairer Relationship Specialty Start Date End Date Josh Parham MD PCP - General Internal Medicine 05/27/11 08/28/24 Josh Parham MD [address] [place] [address] PCP - Attributed-MSSP 11/29/16 06/12/21 Josh Parham MD [address] [place] [address] PCP - Attributed-[employer] [place] 09/21/22 12/08/22 Josh Parham MD [address] [place] [address] PCP - Attributed-[facility] [place] 10/22/22 Josh Parham MD [address] [facility] [address] [place] [address] PCP - Strive MCO 01/22/23 11/21/23 Charu Carter APRN-DIRECTOR OF WORKFORCE DEVELOPMENT [address] [place] [phone] PCP - Strive MCO 11/22/23 03/23/24 Josh Parham MD [address] [place] [address] PCP - Strive MCO 03/24/24 09/08/24 Daniel Smith, MD Idris [address] [phone] PCP - General Family Medicine 08/29/24 09/25/24 Josh Parham MD [address] [facility] [address] [place] [address] PCP - Attributed-[facility] [place] 08/22/24 Poly Rebollar APNP-DIRECTOR OF WORKFORCE DEVELOPMENT [address] [facility] [address] [place] [address] PCP - General Internal Medicine 09/26/24 [facility], [facility] Care Management 12/23/22 Cami Aguilar RN Parking PatrollerFirefighter Marine 09/03/23 09/07/23 Isabela Zacarias, RN [address] [facility] [address] [place] [address] Parking PatrollerFirefighter Marine 09/22/24 09/26/24 documented as of this encounter
--- OUTSIDE RECORDS SUMMARY | 2024-09-27 21:13 | XMS_ITS ---
Author Organization [facility] Address [address] [place] [address] Care Team Providers Care Joint Maker Machine Name Role Phone Care, [facility] [employer] Kidney Unavailable Josh Parham MD Unavailable [phone] Poly Rebollar-OG Primary Care Provider Unavailable Acute DC - [facility] Status:Closed (Closed) Start date:09/22/2024 Enrollment date:09/26/2024 Enrollment reason:Identified using claims or encounter data End date:09/26/2024 Close reason:Follow by dynamic observation Continued Care and Services Coordination
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
--- OUTSIDE RECORDS SUMMARY | 2024-09-27 21:13 | XMS_ITS | Encounter Summary ---
Author Organization [facility] Healthcare Address [address] [place] [address] Care Team Providers Care Real Estate Site Analyst Name Role Phone Matteo Brooks MD Unavailable [phone] Gerson Keith MD Unavailable Cassie Márquez MD Unavailable Beatriz TO MD, Steh Vasquez Unavailable [phone] Beatriz TO MD, Lyman Lansing Unavailable David Gorman MD Unavailable [phone] Blayne Sepulveda MD Unavailable Gerson Forrester DO Unavailable [phone] Teddy Hull MD Unavailable No, Physician Primary Care Provider [phone] Encounter Details Date Type Department Care Team (Late st Contact Info) Description 09/27/2024 Telephone [facility] Nephrology at [address] [place] [address] Gerson Keith MD [address] [place] [address] [address] [place] [address] Social History Tobacco Use Types Packs/Day Years Used Date Smoking Tobacco: Some Days Cigarettes 0.3 10 Passive Smoke Exposure: Never Smokeless Tobacco: Never Comments:Last cigarette 04/24 0 Alcohol Use Standard Drinks/Week Comments Not Currently 0 (1 standard drink = 0.6 oz pur e alcohol) [facility] Utilities Answer Date Recorded In the past 12 months has e electric, gas, oil, or water company [...] answer 08/24/2024 How often do you attend chur ch or alevism services? 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 Would recommend following up with [facility] Dermatology for now since they just saw him in the hospital. If he needs long-term chronic care can re-evaluate. * Telephone Encounter - Ruth Ordonez MA - 09/27/2024 1:10 PM CDT Radha called to get the office up to speed with his recent events. Patient is a dialysis patient at [facility] and has had several hospitalizations and medication changes, but she is needing toknow what pt is supposed to be taking. I told her that I would delve into his chart to compare discharge medication lists at each facility and addend them to make one clear, updated list and she was agreeable to this. She also states that pt is seeing Dermatology at [facility], however they would prefer to see a Distribution Tech in the [facility] network and want to know how to go about getting a referral forthis since his PCP visit is not until 10/26/24 and it is a BILLET STRAIGHTENER visit. documented in this encounter Plan of Treatment Upcoming Encounters Date Type Department Care Team (Latest Contact Info) Description 10/05/2024 7:30 AM CDT Hospital Encounter [facility] OR [address] [place] [address] Seth Henderson IV, MD [address] [place] [address] 10/05/2024 7:30 AM CDT - 10/05/2024 9:00 AM CDT Surgery [facility] OR [address] [place] [address] Seth Henderson IV, MD [address] [place] [address] RECTAL EXAM UNDER ANESTHESIA WITH EXCISION ANAL MASS Scheduled Procedures Name Priority Associated Diagnoses Date/Ti me HEMORRHOIDECTOMY ANAL CANCER 10/05/2024 7:30 AM CDT COLONOSCOPY ANAL CANCER 10/05/2024 7:30 AM CDT documented as of this encounter Visit Diagnoses Not on filedocumented in this encounter Care Teams Real Estate Site Analyst Relationship Specialty Start Date End Date No, Physician PCP - General 09/24/24 Matteo Brooks MD [facility], [address] [address] Medical Oncologist/Training Technician Medical Oncology 03/31/23 Gerson Keith MD [address] [facility], [address] [address] Consulting Physician Nephrology 05/07/23 Cassie Márquez MD [address] [place] [address] Consulting Physician Family Medicine 06/25/23 Seth Henderson IV, MD [address] [place] [address] [phone] Consulting Physician General Surgery 10/21/23 Seth Henderson IV, MD [address] [place] [address] [phone] Consulting Physician General Surgery 10/21/23 David Gorman MD [address] [place] [address] [phone] Radiation Oncologist Radiation Oncology 10/21/23 Blayne Sepulveda MD [address] [place] [address] [phone] Consulting Physician General Surgery 03/10/24 Gerson Forrester DO [address] [address] Consulting Physician General Surgery 03/14/24 Teddy Hull MD [address] [address] Consulting Physician Cardiology 09/22/24 documented as of this encounter
--- OUTSIDE RECORDS SUMMARY | 2024-09-27 21:13 | XMS_ITS | Encounter Summary ---
Author Organization [facility] Address [address] [place] [address] Phone Care Team Providers Care Disposal Man Name Role Phone Matteo Brooks MD Unavailable [phone] Gerson Keith MD Unavailable Cassie Márquez MD Unavailable Beatriz TO MD, Seth Vasquez Unavailable Beatriz TO MD, Seth Vasquez Unavailable [phone] David Groman MD Unavailable [phone] Blayne Sepulveda MD Unavailable Gerson Forrester DO Unavailable [phone] Teddy Hull MD Unavailable [phone] No, Physician Primary Care Provider [phone] Encounter Details Date Type Department Care Team (Late st Contact Info) Description 09/27/2024 Orders Only [facility] Infectious Diseases [address] [place] [address] [address] [place] [address] Bhavesh Salazar MD [address] [place] [address] Social History Tobacco Use Types Packs/Day Years Used Date Smoking Tobacco: Some Days Cigarettes 0.3 10 Passive Smoke Exposure: Never Smokeless Tobacco: Never Comments:Last cigarette 04/24 0 Alcohol Use Standard Drinks/Week Comments Not Currently 0 (1 standard drink = 0.6 oz pur e alcohol) [facility] Utilities Answer Date Recorded In the past 12 months has e [employer], gas, oil, or water [employer] threatened to shut off services in your [...] answer 08/24/2024 How often do you attend [facility] or alevism services? Patient unable to answer 08/24/2024 Do you belong to any clubs o r organizations such as uatsdin groups, unions, fraternal or athletic groups, or [...] place to sleep or slept in a prison (including now)? No 08/30/2023 PHQ-9 Answer Date [...] any time in the past 12 m [facility], were you homeless or living in a prison (including now)? Patient unable to answer 08/24/2024 Personal Safety Answer Date Recorded Have you ever been in or are you currently in a harmful physical or emotional relationship or is someone making you feel afraid or unsafe? 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 Gender Identity Not on file Sexual Orientation Not on file documented as of this encounter Ordered Prescriptions Prescription Sig Dispense Quantity Refills Last Filled Start Date End Date triamcinolone (KENALOG) 0.1 % ointment Apply topically 2 (two) times a day 30 g 1 09/27/2024 documented in this encounter Plan of Treatment Upcoming Encounters Date Type Department Care Team (Latest Contact Info) Description 10/05/2024 7:30 AM CDT Hospital Encounter [facility] OR [address] [place] [address] Seth Henderson IV, MD [address] [place] [address] [phone] 10/05/2024 7:30 AM CDT - 10/05/2024 9:00 AM CDT Surgery [facility] OR [address] [place] [address] Seth Henderson IV, MD [address] [place] [address] [phone] RECTAL EXAM UNDER ANESTHESIA WITH EXCISION ANAL MASS Scheduled Procedures Name Priority Associated Diagnoses Date/Ti me HEMORRHOIDECTOMY ANAL CANCER 10/05/2024 7:30 AM CDT COLONOSCOPY ANAL CANCER 10/05/2024 7:30 AM CDT documented as of this encounter Visit Diagnoses Not on filedocumented in this encounter Care Teams Disposal Man Relationship Specialty Start Date End Date No, Physician PCP - General 09/24/24 Matteo Brooks MD [address] [facility], [address] [address] Medical Oncologist/Manager Specialty Medical Oncology 03/31/23 Gerson Keith MD [address] [facility], [address] [address] Consulting Physician Nephrology 05/07/23 Cassie Márquez MD [address] [place] [address] Consulting Physician Family Medicine 06/25/23 Seth Henderson IV, MD [address] [place] [address] Consulting Physician General Surgery 10/21/23 Seth Henderson IV, MD [address] [place] [address] Consulting Physician General Surgery 10/21/23 David Gorman MD [address] [place] [address] Radiation Oncologist Radiation Oncology 10/21/23 Blayne Sepulveda MD [address] [place] [address] Consulting Physician General Surgery 03/10/24 Gerson Forrester DO [address] [place] [address] Consulting Physician General Surgery 03/14/24 Teddy Hull MD [address] [phone] Consulting Physician Cardiology 09/22/24 documented as of this encounter
--- OUTSIDE RECORDS SUMMARY | 2024-09-27 21:13 | XMS_ITS ---
[facility] Care Plan Created on: September 26, 2024 SalcedoRamsey mariey : 1955 Sex: Male Author Organization [facility] Address [address] [place] [address] Phone Health Concerns Health Status [facility] Health Concerns None
--- OUTSIDE RECORDS SUMMARY | 2024-09-27 21:14 | XMS_ITS | Clinical Summary ---
Author Organization [facility] Address [address] [place] [address] Care Team Providers Care Molecular Physicist Name Role Phone Care, [facility] Unavailable Josh Parham MD Unavailable [phone] Poly [facility] Primary Care Provider Unavailable Source Comments [facility],non-owned Affiliates and Associated Physician Practices is amultiple site organization consisting of ambulatory clinics and hospital sitesin [place], [place], [place] and [place]. This disclosure is being madepursuant to the Care Everywhere program and may not contain all information available regarding this patient. Last updated 18.[facility] Allergies No known active allergies Medications * This document contains information received from the source organization and may not represent a complete record from that organization. * Be aware that medications may not be up to date on this document. Alwaysverify current medications with the patient. Tivicay 50 MG tabletIndications: AIDS (acquired immune deficiency syndrome) (HCC) TAKE 1 TABLET(50 MG) BY MOUTH TWICE DAILY 60 tablet 023 Active calcitriol (Rocaltrol) 0.5 MCG capsule Take 1 (one) capsule by mouth once daily 023 Active darunavir-cobicist at (Prezcobix) 800-150 MG tabletIndications: Human Immunodeficiency Virus Disease Take 1 (one) tablet by mouth once daily Reasons: HIV Disease 30 tablet Active fostemsavir ER 12hr (Rukobia) 600 MG tabletIndications: Human Immunodeficiency Virus Disease Take 1 (one) tablet by mouth 2 times daily Reasons: HIV Disease 60 tablet 024 Active entecavir (Baraclude) 0.5 MG tablet Take 1 (one) tablet by mouth every 7 days Active ondansetron, disintegrating, (Zofran ODT) 4 MG tablet Take 1 (one) tablet by mouth every 8 hours as needed Active albuterol (Proventil;Ventoli n) (2.5 MG/3ML) 0.083% nebulizer solutionIndication s:Chronic obstructive pulmonary disease, unspecified COPD type (HCC) INHALE THE CONTENTS OF 1 VIAL VIA NEBULIZER EVERY 6 HOURS NEEDED FOR WHEEZING OR FOR SHORTNESS OF BREATH 375 mL 5 Active triamcinolone acetonide (Kenalog) 0.1 % creamIndications:P soriasis APPLY TO AFFECTED AREAS TWICE DAILY FOR PSORIASIS 454 g 025 Active sodium chloride (V-R NASAL SPRAY SALINE) 0.65 % nasal spray SPRAY 1 SPRAY INTO INTO EACH NOSTRIL NEEDED FOR DRY NOSE 44 mL 1 025 Active renal vitamin (Dialyvite) tablet Take 1 (one) tablet by mouth once daily Active Additional Information Patient not taking.Reported on 09/26/2024 acetaminophen (Tylenol) 500 MG tablet Take 2 (two) tablets by mouth 3 times daily Maximum allowable Acetaminophen amount = 4 Grams (4000 mg) / 24 hours. Active hydrOXYzine HCl (Atarax) 25 MG tablet Take 1 (one) tablet by mouth every 6 hours as needed for Itching Active Additional Information Patient not taking.Reported on 09/26/2024 calcium carbonate (Tums) 500 MG chew tablet Take 1 (one) tablet by mouth once daily as needed for Heartburn Active levETIRAcetam (Keppra) 500 MG tablet Take 1 (one) tablet by mouth once daily 30 tablet 1 09/22/19 25 11:56 AM CDT 025 Active levETIRAcetam (Keppra) 250 MG tablet Take 1 (one) tablet by mouth every Wednesday, Wednesday & Wednesday for 60 days 12 tablet 1 09/22/19 25 11:56 AM CDT 025 2024 Active thiamine (Vitamin B-1) 100 MG tablet Take 1 (one) tablet by mouth once daily 30 tablet 09/22/19 25 11:56 AM CDT 025 Active Additional Information Patient not taking.Reported on 09/26/2024 carvedilol (Coreg) 25 MG tablet Take 1 (one) tablet by mouth 2 times daily with morning and evening meal 60 tablet 1 09/22/19 11:56 AM CDT 025 Active hydrALAZINE (Apresoline) 25 MG tablet Take 1 (one) tablet by mouth every 8 hours 90 tablet 1 09/22/19 11:56 AM CDT 025 Active albuterol HFA (Proventil; Ventolin; Proair) 108 (90 Base) MCG/ACT inhaler Inhale 2 (two) puffs by mouth every 6 hours as needed 25.5 g 025 Active budesonide-formote rol (Symbicort) 160-4.5 MCG/ACT inhalerIndications :Chronic Obstructive Pulmonary Disease Inhale 2 (two) puffs by mouth 2 times daily Reasons: Chronic Obstructive Lung Disease 30.6 g 3 025 Active sertraline (Zoloft) 50 MG tablet Take 1 (one) tablet by mouth once daily 100 tablet 1 025 Active traZODone (Desyrel) 50 MG tabletIndications: Psychophysiologic insomnia Take 0.5 (one-half) tablet by mouth nightly as needed for Insomnia 45 tablet 3 025 Active oxyCODONE, immediate release, (Roxicodone) 5 MG tabletIndications: ESRD (end stage renal disease) on dialysis (HCC),Contact dermatitis, unspecified contact dermatitis type, unspecified trigger Take 1 (one) tablet by mouth every 8 hours as needed for Pain 12 tablet 05/01/20 25 11:56 AM CDT 025 Active amLODIPine (Norvasc) 10 MG tablet Take 1 (one) tablet by mouth once daily 30 tablet 1 09/22/19 11:56 AM T 025 Active folic acid (Folvite) 1 MG tablet Take 1 (one) tablet by mouth once daily 30 tablet 11 025 2025 Active sulfamethoxazole-t rimethoprim (Bactrim; Septra) 400-80 MG tablet Take 1 (one) tablet by mouth every Wednesday, Wednesday & Wednesday 12 tablet 1 09/22/19 11:56 AM T 025 Active hydrocortisone (Hytone) 2.5 % cream Apply to affected area 2 times daily 28 g 09/22/19 11:56 AM T 025 Active ketoconazole (Nizoral) 2 % cream Apply to affected area 2 times daily 30 g 09/22/19 11:56 AM [facility] 025 Active lidocaine (Lidoderm) 5 % patch Apply 1 (one) patch to skin once daily Apply patch to most painful area and remove after 12 hours. May reapply a new patch 12 hours later. 30 patch Active Additional Information Patient not taking.Reported on 09/26/2024 Oxygen Oxygen with portability - continuous at 2L/min at rest and 3 L/min with activity via nasal cannula - Estimate length of need (number of months): Lifetime 1 Each Active calcium acetate (Phoslo) 667 MG capsule Take 1 (one) capsule by mouth 3 times daily before meals 023 2024 Discontinued( Clinical Decision) vitamin D3 (Cholecalciferol) 125 MCG (5000 UT) capsule Take 1 (one) capsule by mouth once daily 024 2024 Discontinued( Clinical Decision) folic acid (Folvite) 1 MG tablet Take 1 (one) tablet by mouth once daily 024 2024 Discontinued losartan (Cozaar) 100 MG tablet Take 1 (one) tablet by mouth once daily 024 2024 Discontinued( Clinical Decision) amLODIPine (Norvasc) 10 MG tablet Take 1 (one) tablet by mouth once daily 024 2024 Discontinued minoxidil (Loniten) 2.5 MG tablet Take 2 (two) tablets by mouth 2 times daily 2024 Discontinued( Clinical Decision) carvedilol (Coreg) 12.5 MG tablet Take 1 (one) tablet by mouth 2 times daily 2024 Discontinued albuterol HFA (Proventil; Ventolin; Proair) 108 (90 Base) MCG/ACT inhaler Inhale 2 (two) puffs by mouth every 6 hours as needed 54 g 2024 Discontinued budesonide-formote rol (Symbicort) 160-4.5 MCG/ACT inhalerIndications :Chronic Obstructive Pulmonary Disease Inhale 2 (two) puffs by mouth 2 times daily Reasons: Chronic Obstructive Lung Disease 30.6 g 3 2024 Discontinued doxazosin (Cardura) 8 MG tablet Take 1 (one) tablet by mouth once daily 90 tablet 3 2024 Discontinued( Clinical Decision) cloNIDine (Catapres) 0.2 MG tablet Take 1 (one) tablet by mouth 2 times daily 180 tablet 3 2024 Discontinued( Clinical Decision) traZODone (Desyrel) 50 MG tabletIndications: Psychophysiologic insomnia Take 0.5 (one-half) tablet by mouth nightly as needed for Insomnia 45 tablet 3 2024 Discontinued sertraline (Zoloft) 50 MG tablet TAKE 1 TABLET BY MOUTH EVERY DAY 100 tablet 1 2024 Discontinued cyclobenzaprine (Flexeril) 5 MG tablet TAKE 1 TABLET BY MOUTH 2 TIMES DAILY NEEDED REASONS: MUSCLE SPASM 50 tablet 2 2024 Discontinued( Clinical Decision) hydrocortisone (Hytone) 2.5 % cream Apply to affected area 2 times daily 28 g 3 025 2024 Discontinued( Clinical Decision) ketoconazole (Nizoral) 2 % cream Apply to affected area 2 times daily 30 g 3 5 Discontinued( Clinical Decision) Active Problems Problem Noted Date Diagnosed Date Acute encephalopathy 09/19/2024 Assessment & Plan (09/20/2024 4:32 PM CDT): - appears to be improving/resolved - ddx include related to hospital acquired delirium, neurosyphilis vs seizures - wean zyprexa to 2.5 mg qhs and stop tomorrow - zyprexa for agitation Assessment & Plan (09/19/2024 4:14 PM CDT): - appears to be improving - ddx include related to hospital acquired delirium, neurosyphilis vs seizures - wean zyprexa to 2.5 mg qd, 5 mg qhs - zyprexa for agitation Chronic hepatitis B virus infection 09/19/2024 Assessment & Plan (09/20/2024 7:37 AM CDT): - entecavir weekly (HD dosing) Assessment & Plan (09/19/2024 4:14 PM CDT): - entecavir weekly (HD dosing) Syphilis 09/19/2024 Assessment & Plan (09/20/2024 7:37 AM CDT): - concern for possible neurosyphilis - ID has been following - gotten 14 days of IV antibiotics (EOT 09/18/2024) Assessment & Plan (09/19/2024 4:14 PM CDT): - concern for possible neurosyphilis - ID has been following - gotten 14 days of IV antibiotics (EOT 09/18/2024) VAP (ventilator-associated pneumonia) 09/19/2024 Assessment & Plan (09/20/2024 7:37 AM CDT): VAP vs HAP Vs aspiration - ID following, sputum cultures was positive - completed abx per ID Assessment & Plan (09/19/2024 4:14 PM CDT): VAP vs HAP Vs aspiration - ID following, sputum cultures was positive - completed abx per ID Contact dermatitis 09/19/2024 Assessment & Plan (09/20/2024 7:37 AM CDT): - concern for contact dermatitis around dialysis catheter site - completed course of vanc due to possible superimposed bacterial infection - Derm formerly following - CTM Assessment & Plan (09/19/2024 4:14 PM CDT): - concern for contact dermatitis around dialysis catheter site - completed course of vanc due to possible superimposed bacterial infection - Derm formerly following - CTM Altered mental status 09/15/2024 Severe protein-calorie malnu trition (Brown: less than 60% of standard weight) 09/10/2024 Assessment & Plan (09/20/2024 7:37 AM CDT): - appreciate the help of nutrition Assessment & Plan (09/19/2024 4:14 PM CDT): - appreciate the help of nutrition Status epilepticus 08/28/2024 Diverticulosis 08/28/2024 History of appendicitis 03/09/2024 Assessment & Plan (03/30/2024 2:49 PM RANGE MANAGER): Status post laparoscopic appendectomy in February,. He still has some pain in the RLQ, but his abdominal examination is otherwise normal. Surgical scars appear to be healing well. Neck pain 01/25/2024 Assessment & Plan (03/30/2024 2:52 PM RANGE MANAGER): Radha reports that he has had [...] 01/21/2024 Assessment & Plan (03/30/2024 2:50 PM RANGE MANAGER): Reports that the infection came from [...] documents. Rectal cancer 10/07/2023 Assessment & Plan (09/20/2024 7:37 AM CDT): S/p resection Continue outpatient follow up Assessment & Plan (09/19/2024 4:14 PM CDT): S/p resection Continue outpatient follow up Assessment & Plan (03/30/2024 2:50 PM RANGE MANAGER): Continue to follow with oncologist. He [...] on hemodialysis 08/29/19 24 Assessment & Plan (09/20/2024 4:32 PM CDT): - nephrology following - dialysis as per nephro - continue renal vitamin - will clarify home meds with nephrology (was on calcitriol, and phoslo at home, as well as vitamin D) Assessment & Plan (09/19/2024 4:14 PM CDT): - nephrology following - dialysis as per nephro - continue renal vitamin Assessment & Plan (03/30/2024 2:48 PM RANGE MANAGER): He continues to go to hemodialysis on Wed/Wed/Wed. Temporary dialysis catheter is again noted in the right upper chest wall. He does not yet have an AV fistula. Assessment & Plan (10/09/2023 3:52 PM CDT): He continues to go to hemodialysis on Wed/Wed/Wed. Temporary dialysis catheter is noted in the right upper chest wall. Seizures 08/29/2023 Assessment & Plan (09/20/2024 7:37 AM CDT): - continue keppra 500 mg qd - continue keppra 250 mg MWF after HD Assessment & Plan (09/19/2024 4:14 PM CDT): - continue keppra 500 mg qd - continue keppra 250 mg MWF after HD Assessment & Plan (10/09/2023 4:01 PM CDT): Radha reports that he was hospitalized in early August with a seizure, but he is presently not an any anti-seizure medications. It is not clear why he is not following with a neurologist. Thrombocytopenia 08/29/2023 Assessment & Plan (09/20/2024 7:37 AM CDT): - resolved Assessment & Plan (09/19/2024 4:14 PM CDT): - resolved Squamous cell carcinoma of anal margin 3 [...] required. Assessment & Plan (06/28/2022 4:05 PM RANGE MANAGER): Noted on CT abdomen/pelvis from 06/12/2021. He has no current evidence of having peripheral arterial disease. Smoking cessation is advised. No further work-up is required. Hypercoagulable state 06/08/2021 Assessment & Plan (06/08/2021 1:24 PM RANGE MANAGER): Patient reports being told during his recent hospitalization that his blood was thick. CBC, prothrombin time, PTT are ordered today. Need for pneumocystis prophylaxis 05/14/2020 Assessment & Plan (09/20/2024 7:37 AM CDT): - continue bactrim Assessment & Plan (09/19/2024 4:14 PM CDT): - continue bactrim Assessment & Plan (06/08/2021 1:19 PM RANGE MANAGER): Continue to take oral Bactrim. Assessment & Plan (05/29/2021 2:58 PM RANGE MANAGER): Continue to take Bactrim. Assessment & Plan (10/25/2020 2:34 PM CDT): CD4 count continues to be well below 200. He must continue to take Bactrim daily. New prescription is sent to his pharmacy today. Assessment & Plan (06/16/2020 3:24 PM RANGE MANAGER): CD4 count is extremely low. He must continue to take Bactrim as prescribed. Assessment & Plan (05/14/2020 3:04 PM RANGE MANAGER): Stay on Bactrim as ordered. Anxiety 01/11/2020 Assessment & Plan (09/20/2024 7:37 AM CDT): - continue zoloft - continue PRN atarax Assessment & Plan (09/19/2024 4:14 PM CDT): - continue zoloft - continue PRN atarax Assessment & Plan (01/11/2020 6:07 PM CDT): Reports that he is chronically anxious and would like to try medical marijuana to see if it would help his symptoms. Tobacco use disorder 01/11/2020 Assessment & Plan (03/30/2024 2:51 PM RANGE MANAGER): Smoking cessation has been encouraged at prior visits. Assessment & Plan (10/09/2023 3:57 PM CDT): Complete smoking cessation is advised. Assessment & Plan (06/28/2022 4:13 PM RANGE MANAGER): Complete cessation of all smoking is encouraged. I have advised him that if he is going to use marijuana, he should try to switch to edible products which are not harmful to the lungs. Assessment & Plan (06/16/2020 3:23 PM RANGE MANAGER): Patient reports today that he has [...] dated 08/03/16. No further work-up is required. Insomnia 03/11/2017 Assessment & Plan (09/20/2024 7:37 AM CDT): - continue trazodone (dose adjusted to reflect home dose) Assessment & Plan (09/19/2024 4:14 PM CDT): - continue trazodone (dose adjusted to reflect home dose) Assessment & Plan (10/09/2023 4:03 PM CDT): [...] counseling. Assessment & Plan (05/29/2021 2:56 PM RANGE MANAGER): Chronic condition for this patient. Not discussed at today's visit. He may take Melatonin as needed. Assessment & Plan (06/16/2020 3:20 PM RANGE MANAGER): Chronic condition for this patient. He takes no prescription medication for this condition. He may take [id number] Melatonin as needed. Overweight(278.02) 10/12/2016 Overview (03/11/2017): IMO Update 02/21/2017 Exact BMI is discussed. I encouraged him to stop smoking marijuana at a prior visit. Medical dangers of obesity are discussed. But overall, I am much more concerned that he continue to avoid smoking cigarettes. Assessment & Plan (06/28/2022 4:11 PM RANGE MANAGER): See exact BMI above. He has lost weight recently. He should focus on maintaining a healthy diet to avoid malnutrition. Assessment & Plan (06/08/2021 1:21 PM RANGE MANAGER): See exact BMI above. He has gained weight recently, and due to recent long hospitalization, I have encouraged him to continue to try to eat well and avoid malnutrition. Assessment & Plan (05/29/2021 2:54 PM RANGE MANAGER): Recent weight loss of 10 pounds [...] time. Assessment & Plan (06/16/2020 3:17 PM RANGE MANAGER): Exact BMI is discussed. He remains [...] saw urologist, Dr. Salas, and was given [employer] No current complaints of urinary outlet syndrome. Assessment & Plan (05/29/2021 2:55 PM RANGE MANAGER): Noted on recent renal ultrasound. Reports that he recently saw urologist, Dr. Salas, and was given [employer] No current complaints of urinary outlet syndrome. Assessment & Plan (06/16/2020 3:19 PM RANGE MANAGER): Noted on renal ultrasound done in July,. Reports that he saw urologist, Dr. Salas, in past and was given [employer] No current complaints of urinary outlet symptoms. Assessment & Plan (01/11/2020 6:00 PM CDT): Noted on a prior renal ultrasound. He has seen urologist, Dr. Salas, in past and was given [employer] per his report. No current complaints of urinary outlet syndrome. Poor dentition 08/05/2016 Overview (12/10/2016): He knows that he should see a dentist and have multiple teeth pulled. He cannot afford to see a dentist at this time. Daily flossing has been advised at prior visits as he also has evidence of gingivitis. Assessment & Plan (06/28/2022 4:13 PM RANGE MANAGER): He knows that he should see a dentist and have multiple teeth pulled. He cannot afford to see a dentist at this time. Daily flossing has been advised at prior visits as he also has evidence of gingivitis. Assessment & Plan (05/29/2021 2:54 PM RANGE MANAGER): He knows that he should see a dentist and have multiple teeth pulled. Assessment & Plan (06/16/2020 3:16 PM RANGE MANAGER): He knows that he should see [...] however. Assessment & Plan (06/28/2022 4:17 PM RANGE MANAGER): He must never receive another TB skin test. Assessment & Plan (05/29/2021 2:52 PM RANGE MANAGER): He must never receive another TB [...] x-ray. Assessment & Plan (06/16/2020 3:16 PM RANGE MANAGER): He must never receive another TB [...] normal. Assessment & Plan (06/28/2022 4:10 PM RANGE MANAGER): Most recent lipid panel from 06/06/21 showed elevated LDL of 145. He is currently on no medication to lower his cholesterol level. Repeat fasting lipid panel is ordered today. Assessment & Plan (06/08/2021 1:21 PM RANGE MANAGER): Noted on prior blood work. Most recent lipid panel done on 06/14/20 showed normal fractions. Repeat fasting lipid panel is ordered today. Assessment & Plan (05/29/2021 2:50 PM RANGE MANAGER): Most recent lipid panel done on 06/14/20 showed normal fractions. Assessment & Plan (06/16/2020 3:12 PM RANGE MANAGER): Noted with prior blood draws. Most [...] negative. Assessment & Plan (05/29/2021 2:53 PM RANGE MANAGER): These were noted on his external [...] negative. Assessment & Plan (06/16/2020 3:14 PM RANGE MANAGER): These were noted on his external [...] 09/10/2017 Assessment & Plan (06/28/2022 4:07 PM RANGE MANAGER): Most recent serum creatinine I can [...] foot. Assessment & Plan (06/08/2021 1:18 PM RANGE MANAGER): Most recent serum creatinine was 1.46 [...] today. Assessment & Plan (05/29/2021 2:51 PM RANGE MANAGER): Most recent serum creatinine was 1.46 with estimated GFR of 59. He certainly had kidney function blood work drawn during recent hospitalization. Assessment & Plan (03/03/2021 4:01 PM CDT): Repeat BMP was ordered after results of renal function panel from October, were known. He never got the blood work drawn. I have urged him to go to [facility] at once to get the testing done. [...] NSAIDs. Assessment & Plan (06/16/2020 3:06 PM RANGE MANAGER): Most recent serum creatinine from 05/14/20 [...] deteriorated, he will require referral to a [employer]. He already knows to push po intake [...] from July, were normal. Assessment & Plan (09/19/2024 4:14 PM CDT): - hep C virus was not detected this admit Assessment & Plan (10/09/2023 3:55 PM CDT): Patient has desired no treatment during past visits. He had been on Entecavir in past -- presumably for chronic hepatitis B infection. He can discuss this with the ID physician when he sees him later in September. Assessment & Plan (06/08/2021 1:28 PM RANGE MANAGER): Patient has desired no treatment during [...] visit. Assessment & Plan (06/16/2020 3:10 PM RANGE MANAGER): Patient has desired no treatment at [...] normal. HTN (hypertension) 09/02/2012 Assessment & Plan (09/20/2024 7:37 AM CDT): - continue norvasc, coreg, and hydralazine - clonidine, minoxodil and losartan on hold Assessment & Plan (09/19/2024 4:14 PM CDT): - continue norvasc, coreg, and hydralazine - clonidine, minoxodil and losartan on hold Assessment & Plan (03/30/2024 2:49 PM RANGE MANAGER): BP is presently well-controlled. Assessment & Plan (10/09/2023 4:08 PM CDT): BP is very poorly controlled presently. Increase dosage of Clonidine from twice daily to three times daily. Continue to take Carvedilol, Doxazosin, Hydralazine, Imdur and Losartan. He will see his director [employer] next week to discuss further changes in his blood pressure medications. I have asked him or Radha to e-mail me through My Chart in 1 week with some home blood pressure readings. Assessment & Plan (06/28/2022 4:08 PM RANGE MANAGER): Continue to take Norvasc. BP was marginally controlled at today's visit. Assessment & Plan (06/08/2021 1:19 PM RANGE MANAGER): Continue to take Norvasc. BP was well-controlled today. Assessment & Plan (05/29/2021 2:59 PM RANGE MANAGER): Continue to take Norvasc. He reports [...] applauded. Assessment & Plan (06/16/2020 3:24 PM RANGE MANAGER): Very well-controlled. Continue to take Norvasc. [...] to his next visit. Assessment & Plan (09/20/2024 7:37 AM CDT): - continue home pulmicort - PRN duonebs Assessment & Plan (09/19/2024 4:14 PM CDT): - continue home pulmicort - PRN duonebs Assessment & Plan (03/30/2024 2:55 PM RANGE MANAGER): Continue to wear supplemental oxygen. Present [...] advised. Assessment & Plan (06/28/2022 4:08 PM RANGE MANAGER): Continue to use supplemental oxygen. Continue to use either Albuterol nebulized solution or Albuterol HFA MDI as needed. Complete smoking cessation is advised. Assessment & Plan (06/08/2021 1:18 PM RANGE MANAGER): He reported at his last visit that he was diagnosed with COPD exacerbation in addition to Covid pneumonia during his last hospitalization. His only current inhaled medication is either Albuterol HFA MDI or Albuterol nebulized solution which he uses as needed. Assessment & Plan (05/29/2021 2:49 PM RANGE MANAGER): Recent admission to hospital for COPD [...] list. Assessment & Plan (06/16/2020 3:22 PM RANGE MANAGER): He reports that he was diagnosed [...] JESUS Assessment & Plan (03/30/2024 2:46 PM RANGE MANAGER): Continue taking Rukobia, Tivicay, and Prezcobix. He will continue to follow with ID physician at [facility]. As long as his CD4 count is above 200, he will not require prophylactic medication for PCP pneumonia. Assessment & Plan (10/09/2023 3:51 PM CDT): He should be taking Rukobia, Tivicay and Prezcobix. But he needs a prescription for Prezcobix, which is sent to his pharmacy today. He will see ID physician at [facility] later this month, and he will take over writing these prescriptions. Results of recent HIV viral load and CD4 count from August, are noted. He still requires taking Bactrim to prevent PCP infection due to low CD4 count. Assessment & Plan (06/28/2022 4:04 PM RANGE MANAGER): He is presently taking Rukobia, Tivicay and Prezcobix. But it is not clear when he has seen the infectious disease specialist at [facility] last. I have recently been refilling his HIV medications. Due to the resistance pattern, I want him to be following with ID. Radha will call the ID physician at [facility] to get a quick appointment. HIV blood work is re-ordered today. Due to his low CD4 count, he must continue to take Bactrim for prophylaxis of PCP pneumonia. Assessment & Plan (06/08/2021 1:13 PM RANGE MANAGER): Due to previous resistance to Genvoya, he continues to take Prezcobix, BID Tivicay, and Epivir as started in April,. Most recent HIV viral load from February, showed that he has become resistant to this regimen. Referral to infectious disease specialists at [facility] has been made, but apparently, they do not accept his insurance. Referral to [facility] will be generated after the results of [...] pneumonia. Assessment & Plan (05/29/2021 2:57 PM RANGE MANAGER): Due to resistance to Genvoya, he continues on Prezcobix, BID Tivicay, and Epivir as started in April,. Repeat HIV viral load from February, showed that he has become resistant to this regimen. Urgent referral to infectious disease at [facility] is made today. I have stressed to [...] today. 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 [...] discussed. Assessment & Plan (05/14/2020 3:01 PM RANGE MANAGER): Stay off of Genvoya to which [...] resistance test that he needs is test #[id number] at [facility] (which is HIV-1 PhenoSense GT Plus Integrase, and this test is not loaded into our electronic medical record and cannot be ordered. So I have ordered the HIV-1 PhenoSense GT test (#[id number]) as that is the closest one to it. I will have someone from my office call to [facility] to see if they can change this [...] [facility] [...] normal. Assessment & Plan (05/29/2021 2:58 PM RANGE MANAGER): Patient has desired no treatment during [...] needed. Assessment & Plan (03/30/2024 2:53 PM RANGE MANAGER): Patient requests that we change his triamcinolone ointment to cream. New prescription for cream is sent to pharmacy. Assessment & Plan (06/28/2022 4:14 PM RANGE MANAGER): Patient has a scaly rash at times -- not noted today. He uses Kenalog ointment as needed to treat the rash. Assessment & Plan (06/16/2020 3:21 PM RANGE MANAGER): Patient has a scaly rash at times -- not noted today. He uses Kenalog ointment as needed. Assessment & Plan (05/14/2020 3:03 PM RANGE MANAGER): Patient has scaly rash at times. Prescription for Kenalog ointment is given for patient to use as needed. HIV (human immunodeficiency virus infection) Overview (10/06/2023): 04/25/2019 Dr. Dione JESUS Assessment & Plan: Due to previous resistance to Genvoya, he continues to take Prezcobix, BID Tivicay, and Epivir as started in April,. Most recent HIV viral load from February, showed that he has become resistant to this regimen. Referral to infectious disease specialists at [facility] has been made, but apparently, they do [...] RTC in 3 months Assessment & Plan (09/20/2024 7:37 AM CDT): - continue home HIV meds - ID following Assessment & Plan (09/19/2024 4:14 PM CDT): - continue home HIV meds - ID following Resolved Problems Problem Noted Date Diagnosed Date Resolved Date Falls 08/29/2023 03/30/2024 Hyperkalemia 08/29/2023 10/09/2023 Syncope 08/29/2023 10/09/2023 Urinary retention 08/29/2023 10/07/2023 Pain in shoulder 06/24/2023 10/09/2023 Right foot pain 06/28/2022 10/09/2023 Assessment & Plan (06/28/2022 4:11 PM RANGE MANAGER): And swelling over the dorsum of [...] 06/28/2022 Assessment & Plan (06/28/2022 4:18 PM RANGE MANAGER): Consider ordering a screening lung CT scan in the future if his medical problems stabilize. Smoking cessation is advised. Need for vaccination 06/28/2022 024 Assessment & Plan (06/28/2022 4:19 PM RANGE MANAGER): Covid booster shot is given today. Need for vaccination against Streptococcus pneumoniae 06/28/2022 10/09/2023 Assessment & Plan (06/28/2022 4:15 PM RANGE MANAGER): PCV20 vaccination is given today. Peripheral edema 06/08/2021 10/09/2023 Assessment & Plan (06/28/2022 4:12 PM RANGE MANAGER): Continue to take Lasix. Continue to follow a low-salt diet. CMP is ordered today. Assessment & Plan (06/08/2021 1:23 PM RANGE MANAGER): Now on Lasix as started by [...] 06/24/2022 Assessment & Plan (06/08/2021 1:29 PM RANGE MANAGER): It does not appear infected, but it has remained open now for some weeks. I have advised him to apply aloe vera gel to the wound to promote healing. Repeat examination of the wound at a future visit. Pneumonia due to COVID-19 virus 05/29/2021 06/24/2022 Assessment & Plan (06/08/2021 1:25 PM RANGE MANAGER): Recent long hospitalization at [facility] in [place], [place]. I have no records from said hospitalization. He continues to use home oxygen. He appears mildly dyspneic at rest, though his lung examination is presently normal. Pulse oximetry on portable oxygen was acceptable today. Consider referral to patient care coordinator at a future visit. Home health referral [...] safely. Assessment & Plan (05/29/2021 2:48 PM RANGE MANAGER): Recent long hospitalization at [facility] in [place], [place]. He is now on nasal cannula [...] 10/09/2023 Assessment & Plan (06/28/2022 4:17 PM RANGE MANAGER): Patient elects to defer any screening [...] 10/09/2023 Assessment & Plan (06/28/2022 4:14 PM RANGE MANAGER): PSA blood test is ordered today. [...] 10/09/2023 Assessment & Plan (06/28/2022 4:16 PM RANGE MANAGER): CMP is ordered today. Assessment & Plan (06/08/2021 1:29 PM RANGE MANAGER): CMP is ordered today. Assessment & Plan (08/14/2020 2:17 PM CDT): CMP is ordered today. Assessment & Plan (06/16/2020 3:25 PM RANGE MANAGER): CMP is ordered today. Assessment & Plan (05/14/2020 3:04 PM RANGE MANAGER): CMP is ordered today. Assessment & Plan (01/11/2020 6:09 PM CDT): CMP is ordered today. Screening examination for ST D (sexually transmitted disease) 01/11/2020 10/09/2023 Assessment & Plan (06/28/2022 4:15 PM RANGE MANAGER): RPR and urine for GC/Chlamydia are [...] an acceptable level. Smoking 06/23/2016 12/10/2016 Overview (08/23/2024): Patient has successfully quit smoking since July,. IMO 08/23/2024 Hx of noncompliance with med ical treatment, presenting hazards to health 06/23/2016 06/19/2018 AIDS 08/09/2014 08/22/2014 CKD (chronic kidney disease) stage 3, GFR 30-59 ml/min 08/09/2014 06/22/2016 Overview (08/22/2014): GFR's for normal for Lumbar spondylosis 10/27/2010 7 Hyperlipidemia 04/09/2009 06/23/2016 Essential hypertension 04/09/200906/22 Overview (02/21/2015): Encounters Date Type Department Care Team Description 09/26/2024 Transitional Care [facility] - Care Coordination [address] [place] [phone] Isabela Zacarias, electorate officer 09/25/2024 Travel 09/25/2024 Transitional Care [facility] [address] [place] [phone] Isabela Zacarias, electorate officer 09/22/2024 Transitional Care [facility] [address] [place] [phone] Isabela Zacarias, electorate officer 09/05/2024 Refill [facility] - Internal Medicine [address] [place] [phone] Josh Parham MD Refill Request 09/01/2024 Refill [facility] Internal Medicine [address] [place] [phone] Josh Parham MD Refill Request 08/29/2024 Travel 08/28/2024 8:13 PM CDT - 09/21/2024 3:20 PM CDT Hospital Encounter [facility] [address] [place] [phone] Agustín Ruth MD Limbu, Posan, MD Patel, Radhika, MD Eshetu, Nebiyu A, MD Wheeler, Joseph R, MD Internal Medicine Discharge Disposition: Home or Self Care 07/24/2024 Refill [facility] - Internal Medicine [address] [place] [phone] Josh Parham MD Refill Request 07/22/2024 Refill [facility] - Internal Medicine [address] [place] [phone] Josh Parham MD MEDICATION REFILL 07/17/2024 Refill [facility] Internal Medicine [address] [place] [phone] Josh Parham MD Refill Request 07/07/2024 Refill [facility] Internal Medicine [address] [place] [phone] Josh Parham MD Refill Request from Last 3 Months Immunizations Immunization Administration Dates Next Due COVID PFIZER 12+YR [...] QUADRIVALENT; 6MO+), 0.5 ML (IIV4) 01/28/2017,06/23/2016,06/19/2014 MENINGOCOCCAL ACWY (MCV4P) VAC IM 10/14/2018, PNEUMOCOCCAL PCV20 CONJ VAC IM 02/16/2023,2022 PNEUMOCOCCAL [...] drink = 0.6 oz pur e alcohol) AUDIT-C Answer Date Recorded Q1: How often do you have a drink containing alcohol? Patient unable to answer 08/29/2024 Q2: How many drinks containi ng alcohol do you have on a typical day when you are drinking? Patient unable to answer Q3: How often do you have si x or more drinks on one occasion? Patient unable to answer 08/29/2024 PHQ-2 Answer Date Recorded Patient Health Questionnaire-2 Score 0 03/30/2024 Sex and Gender Information Value Date Recorded Sex Assigned at Male 07/03/2021 7:30 AM RANGE MANAGER Legal Sex Male 6:40 AM RANGE MANAGER Gender Identity Male 07/03/2021 7:30 AM RANGE MANAGER Sexual Orientation Not on file Occupation Industry Job Start Date Job End Date retired Not on file Not on file Not on file Last Filed Vital Signs Vital Sign Reading Time Taken Comments Blood Pressure 119/83 09/21/2024 10:41 AM CDT Pulse 61 09/21/2024 10:41 AM CDT Temperature 37.1 C (98.8 F) 09/20/2024 5:14 PM CDT Respiratory Rate 18 09/21/2024 3:53 AM CDT Oxygen Saturation 95% 09/21/2024 10:09 AM CDT Inhaled Oxygen Concentration 30% 09/06/2024 9 :32 AM CDT Weight 84.6 kg (186 lb 6.4 oz) 09/17/2024 4:01 A M CDT Height 188 cm (6' 2 ) 08/28/2024 9:10 PM CDT Body Mass Index 23.93 08/28/2024 9:10 PM CDT Plan of Treatment Upcoming Encounters Date Type Department Care Team (Late st Contact Info) Description 10/24/2024 3:00 PM CDT Office Visit [facility] - Dermatology [address] [place] [address], [facility] [place] [phone] Stalin Hand MD [address] [place] [address] [address] [place] [address] 12/28/2024 1:00 PM CDT Office Visit [facility] - Dermatology [address] [facility], [facility] [place] [phone] Aleksandr Ngo MD [facility] DEPT OF DERMATOLOGY [address] [place] [phone] Health Maintenance Due Date Last Done Comments [...] 2024 10/07/2023, 03/20/2021, 01/19/2020, Additional history exists LIPID TESTING 06/24/2027 06/24/2022, 05/24, 06/14/2020, Additional history exists SCREENING FOR DIABETES 09/21/2027 , 09/19/2024, 09/19/2024, Additional history exists HEPATITIS B VACCINE Discontinued 11/27/2011, 10/28/2011, 05/27/2011 PNEUMOCOCCAL VACCINE 50+ Completed 023, 06/24/2022, 06/23/2016, Additional history exists INFLUENZA VACCINE Completed 02/23/2024, , 02/16/2023, Additional history exists Respiratory Syncytial Virus (RSV) Vaccine Pt: or over 60 yrs Completed 02/29/2024, 02/29/2024 HEPATITIS C SCREENING Completed 09/08/2024 , 08/24/2024, 08/24/2024, Additional history exists HIB VACCINE Aged Out No longer eligi ble based on patient's age to complete this topic HPV VACCINE Aged Out No longer eligi ble based on patient's age to complete this topic MENINGOCOCCAL (Group B) VACCINE SHARED DECISION-MAKING Aged Out No longer eligible based on patient's age to complete this topic Procedures Procedure Name Priority Date/Time Associated Diagnosis Comments SLIDE SCAN HEMATOLOGY Routine 09/20/2024 8:49 PM CDT RENAL FUNCTION PANEL Routine 09/20/2024 8:49 PM CDT MAGNESIUM BLOOD Routine 09/20/2024 8:49 PM CDT CBC W AUTO DIFFERENTIAL Routine 09/20/2024 8:49 PM CDT HEMODIALYSIS INPATIENT Routine 09/20/2024 9:10 AM CDT RENAL FUNCTION PANEL Routine 09/19/2024 7:19 PM CDT MAGNESIUM BLOOD Routine 09/19/2024 7:19 PM CDT CBC W AUTO DIFFERENTIAL Routine 09/19/2024 7:19 PM CDT SLIDE SCAN HEMATOLOGY Routine 09/19/2024 6:15 AM CDT RENAL FUNCTION PANEL AM Draw 09/19/2024 6:15 AM CDT MAGNESIUM BLOOD AM Draw 09/19/2024 6:15 AM CDT CBC W AUTO DIFFERENTIAL Routine 09/19/2024 6:15 AM CDT VANCOMYCIN LEVEL RANDOM Timed 09/18/2024 1:30 PM CDT RENAL FUNCTION PANEL AM Draw 09/18/2024 1:30 PM CDT MAGNESIUM BLOOD AM Draw 09/18/2024 1:30 PM CDT CBC W AUTO DIFFERENTIAL Routine 09/18/2024 1:30 PM CDT PTH INTACT W/O CALCIUM AM Draw 09/17/2024 7:40 AM CDT RENAL FUNCTION PANEL AM Draw 09/17/2024 7:40 AM CDT MAGNESIUM BLOOD AM Draw 09/17/2024 7:40 AM CDT CBC W AUTO DIFFERENTIAL Routine 09/17/2024 7:40 AM CDT HEMODIALYSIS INPATIENT Routine 09/17/2024 12:00 AM CDT VITAMIN D 25-HYDROXY AM Draw 09/16/2024 5:53 AM CDT RENAL FUNCTION PANEL AM Draw 09/16/2024 5:53 AM CDT MAGNESIUM BLOOD AM Draw 09/16/2024 5:53 AM CDT CBC W AUTO DIFFERENTIAL Routine 09/16/2024 5:53 AM CDT SLIDE SCAN HEMATOLOGY Routine 09/15/2024 7:15 AM CDT VANCOMYCIN LEVEL RANDOM Routine 09/15/2024 7:15 AM CDT RENAL FUNCTION PANEL AM Draw 09/15/2024 7:15 AM CDT MAGNESIUM BLOOD AM Draw 09/15/2024 7:15 AM CDT CBC W AUTO DIFFERENTIAL Routine 09/15/2024 7:15 AM CDT CULTURE FUNGUS OTHER+FUNGUS SMEAR Routine 09/14/2024 1:49 PM CDT CULTURE WOUND+GRAM STAIN Routine 09/14/2024 1:49 PM CDT HEMODIALYSIS INPATIENT Routine 09/14/2024 8:51 AM CDT RENAL FUNCTION PANEL AM Draw 09/14/2024 8:24 AM CDT MAGNESIUM BLOOD AM Draw 09/14/2024 8:24 AM CDT CBC W AUTO DIFFERENTIAL Routine 09/14/2024 8:24 AM CDT SLIDE SCAN HEMATOLOGY Routine 09/13/2024 9:25 AM CDT RENAL FUNCTION PANEL AM Draw 09/13/2024 9:25 AM CDT MAGNESIUM BLOOD AM Draw 09/13/2024 9:25 AM CDT CBC W AUTO DIFFERENTIAL Routine 09/13/2024 9:25 AM CDT [facility] MISCELLANEOUS TEST Routine 09/13/2024 9:21 AM CDT HEMODIALYSIS INPATIENT Routine 09/12/2024 3:22 PM CDT RENAL FUNCTION PANEL AM Draw 09/12/2024 7:16 AM CDT MAGNESIUM BLOOD AM Draw 09/12/2024 7:16 AM CDT CBC W AUTO DIFFERENTIAL Routine 09/12/2024 7:16 AM CDT HEMODIALYSIS INPATIENT Routine 09/11/2024 3:[address] HEAD WO CONTRAST Routine 09/11/2024 9 :56 AM CDT Status epilepticus (HCC) SLIDE SCAN HEMATOLOGY Routine 09/11/2024 7:33 AM CDT RENAL FUNCTION PANEL AM Draw 09/11/2024 7:33 AM CDT MAGNESIUM BLOOD AM Draw 09/11/2024 7:33 AM CDT CBC W AUTO DIFFERENTIAL Routine 09/11/2024 7:33 AM CDT DIFFERENTIAL MANUAL Routine 09/10/2024 5 :52 AM CDT MAGNESIUM BLOOD Routine 09/10/2024 5:52 AM CDT RENAL FUNCTION PANEL Routine 09/10/2024 5:52 AM CDT CBC W AUTO DIFFERENTIAL Routine 09/10/2024 5:52 AM CDT PROTEIN TOTAL BLOOD AM Draw 09/10/2024 5 :52 AM CDT BILIRUBIN TOTAL+DIRECT BLOOD PANEL AM Draw 09/10/2024 5:52 AM CDT AST BLOOD AM Draw 09/10/2024 5:52 AM CDT ALT AM Draw 09/10/2024 5:52 AM CDT ALKALINE PHOSPHATASE BLOOD AM Draw 09/10/2024 5:52 AM CDT XR CHEST 1VW PORTABLE STAT 09/10/2024 2:23 AM CDT Hypoxia DIFFERENTIAL MANUAL Timed 09/09/2024 9 :06 PM CDT ALBUMIN BLOOD Timed 09/09/2024 9:06 PM CDT PHOSPHORUS BLOOD Timed 09/09/2024 9:06 PM CDT MAGNESIUM BLOOD Timed 09/09/2024 9:06 PM CDT BASIC METABOLIC PANEL (CALCIUM TOTAL) Timed 09/09/2024 9:06 PM CDT CBC W AUTO DIFFERENTIAL Timed 09/09/2024 9:06 PM CDT RENAL FUNCTION PANEL Timed 09/09/2024 9:06 PM CDT PTT [facility] Timed 09/09/2024 9:06 PM CDT TRANSFUSE RED BLOOD CELL LEUKOREDUCED UNIT(S) Routine 09/09/2024 7:50 PM CDT DIFFERENTIAL MANUAL Timed 09/09/2024 6 :51 PM CDT CBC W AUTO DIFFERENTIAL Timed 09/09/2024 6:51 PM CDT PTT [facility] Timed 09/09/2024 6:51 PM CDT TRANSFUSE RED BLOOD CELL LEUKOREDUCED UNIT(S) Routine 09/09/2024 5:05 PM CDT TRANSFUSE RED BLOOD CELL LEUKOREDUCED UNIT(S) Routine 09/09/2024 2:25 PM CDT XR ABDOMEN KUB PORTABLE STAT 09/09/2024 1:37 PM CDT Status epilepticus (HCC) XR CHEST 1VW PORTABLE Routine 09/09/2024 1:37 PM CDT Status epilepticus (HCC) DIFFERENTIAL MANUAL Timed 09/09/2024 1 2:52 PM CDT PTT [facility] Timed 09/09/2024 12:52 PM CDT RENAL FUNCTION PANEL Timed 09/09/2024 12:52 PM CDT CBC W AUTO DIFFERENTIAL Timed 09/09/2024 12:52 PM CDT GLUCOSE - POINT OF CARE Routine 09/09/2024 11:09 AM CDT ALBUMIN BLOOD Timed 09/09/2024 12:26 AM CDT PHOSPHORUS BLOOD Timed 09/09/2024 12:2 6 AM CDT MAGNESIUM BLOOD Timed 09/09/2024 12:26 AM CDT BASIC METABOLIC PANEL (CALCIUM TOTAL) Timed 09/09/2024 12:26 AM CDT RENAL FUNCTION PANEL Timed 09/09/2024 12:26 AM CDT EKG 12-LEAD Routine 09/08/2024 12:18 PM CDT Psychophysiologic insomnia RENAL FUNCTION PANEL Timed 09/08/2024 12:05 PM CDT PTT [facility] Timed 09/08/2024 12:05 PM CDT PTT [facility] Timed 09/08/2024 4:10 AM CDT RENAL FUNCTION PANEL Timed 09/08/2024 12:38 AM CDT CBC W AUTO DIFFERENTIAL Timed 09/08/2024 12:38 AM CDT ALBUMIN BLOOD Timed 09/08/2024 12:37 AM CDT PHOSPHORUS BLOOD Timed 09/08/2024 12:3 7 AM CDT MAGNESIUM BLOOD Timed 09/08/2024 12:37 AM CDT BASIC METABOLIC PANEL (CALCIUM TOTAL) Timed 09/08/2024 12:37 AM CDT PTT [facility] Timed 09/08/2024 12:37 AM CDT HEPATITIS C RNA QUANTITATIVE PCR AM Draw 09/08/2024 12:33 AM CDT PTT [facility] Timed 09/07/2024 10:05 PM CDT RENAL FUNCTION PANEL Timed 09/07/2024 10:04 PM CDT PTT [facility] Timed 09/07/2024 6:24 PM CDT HEMOGLOBIN Routine 09/07/2024 2:36 PM CDT PTT [facility] Timed 09/07/2024 2:36 PM CDT TRANSFUSE RED BLOOD CELL LEUKOREDUCED UNIT(S) Routine 09/07/2024 12:48 PM CDT BLOOD TYPE VERIFICATION Routine 09/07/2024 11:26 AM CDT PTT [facility] Timed 09/07/2024 11:26 AM CDT RENAL FUNCTION PANEL Timed 09/07/2024 11:26 AM CDT PREPARE RBC LEUKOREDUCED UNIT Routine 09/07/2024 9:35 AM CDT PREPARE RBC LEUKOREDUCED UNIT Routine 09/07/2024 9:35 AM CDT PREPARE RBC LEUKOREDUCED UNIT Routine 09/07/2024 9:35 AM CDT TYPE + SCREEN PANEL Routine 09/07/2024 9 :35 AM CDT PREPARE RBC LEUKOREDUCED UNIT Routine 09/07/2024 9:35 AM CDT PTT SL[facility] Timed 09/07/2024 8:41 AM CDT SEROTONIN RELEASE ASSAY PANEL Routine 09/07/2024 5:25 AM CDT PTT [facility] STAT 09/07/2024 5:25 AM CDT HEPARIN INDUCED PLATELET ANTIBODY W/ RFLX STAT 09/07/2024 5:25 AM CDT RENAL FUNCTION PANEL Timed 09/07/2024 12:54 AM CDT ALBUMIN BLOOD Timed 09/07/2024 12:54 AM CDT PHOSPHORUS BLOOD Timed 09/07/2024 12:5 4 AM CDT MAGNESIUM BLOOD Timed 09/07/2024 12:54 AM CDT BASIC METABOLIC PANEL (CALCIUM TOTAL) Timed 09/07/2024 12:54 AM CDT CBC W AUTO DIFFERENTIAL Timed 09/07/2024 12:54 AM CDT CBC W AUTO DIFFERENTIAL STAT 09/06/2024 6:05 PM CDT CONTINUOUS VENOVENOUS HEMODIALYSIS Routine 09/06/2024 3:20 PM CDT BLOOD GASES ARTURO + COOX PANEL Timed 09/06/2024 2:09 PM CDT RENAL FUNCTION PANEL Timed 09/06/2024 2:09 PM CDT PLATELET COUNT AUTO CITRATED BLOOD STAT 09/06/2024 10:44 AM CDT BLOOD GASES ARTURO + COOX PANEL Routine 09/06/2024 9:23 AM CDT ASPERGILLUS GALACTOMANNAN ANTIGEN BLOOD Routine 09/06/2024 9:23 AM CDT ASPERGILLUS ANTIBODY BY ID Routine 09/06/2024 9:23 AM CDT ASPERGILLUS ANTIBODY BY CF Routine 09/06/2024 9:23 AM CDT CRYPTOCOCCUS ANTIGEN BLOOD Routine 09/06/2024 9:23 AM CDT COCCIDIOIDES ANTIBODY IGG/IGM PANEL Routine 09/06/2024 9:23 AM CDT HISTOPLASMA ANTIBODIES BY CF & ID Routine 09/06/2024 9:23 AM CDT RENAL FUNCTION PANEL Timed 09/06/2024 9:23 AM CDT BLASTOMYCES DERMATITIDIS AG QNT NON URINE Routine 09/06/2024 9:23 AM CDT RENAL FUNCTION PANEL Timed 09/06/2024 3:53 AM CDT ALBUMIN BLOOD Timed 09/05/2024 11:50 PM CDT PHOSPHORUS BLOOD Timed 09/05/2024 11:5 0 PM CDT MAGNESIUM BLOOD Timed 09/05/2024 11:50 PM CDT BASIC METABOLIC PANEL (CALCIUM TOTAL) Timed 09/05/2024 11:50 PM CDT CBC W AUTO DIFFERENTIAL Timed 09/05/2024 11:50 PM CDT XR CHEST 1VW PORTABLE STAT 09/05/2024 5:01 PM CDT Status epilepticus (HCC) RENAL FUNCTION PANEL Timed 09/05/2024 12:30 PM CDT BLOOD GASES ART + COOX PANEL Routine 09/05/2024 12:29 PM CDT BLOOD GASES ARTURO + COOX PANEL Routine 09/05/2024 9:32 AM CDT RENAL FUNCTION PANEL Timed 09/05/2024 3:27 AM CDT TRIGLYCERIDES BLOOD AM Draw 09/05/2024 3 :27 AM CDT ALBUMIN BLOOD Timed 09/04/2024 10:51 PM CDT PHOSPHORUS BLOOD Timed 09/04/2024 10:5 1 PM CDT MAGNESIUM BLOOD Timed 09/04/2024 10:51 PM CDT BASIC METABOLIC PANEL (CALCIUM TOTAL) Timed 09/04/2024 10:51 PM CDT CBC W AUTO DIFFERENTIAL Timed 09/04/2024 10:51 PM CDT RENAL FUNCTION PANEL Timed 09/04/2024 10:51 PM CDT RESPIRATORY PANEL WITH SARS-COV-2 BY PCR (STL) Routine 09/04/2024 5:[address] ANGIO AORTA FOR DISSECTION STAT 09/04/2024 2:47 PM CDT Tortuous aorta MRSA DNA PCR STAT 09/04/2024 1:02 PM CDT CULTURE SPUTUM+GRAM STAIN Routine 09/04/2024 1:02 PM CDT RENAL FUNCTION PANEL Timed 09/04/2024 12:39 PM CDT XR CHEST 1VW PORTABLE Routine 09/04/2024 6:15 AM CDT Status epilepticus (HCC) AIDS (acquired immune deficiency syndrome) (HCC) ALBUMIN BLOOD Timed 09/04/2024 12:30 AM CDT PHOSPHORUS BLOOD Timed 09/04/2024 12:3 0 AM CDT MAGNESIUM BLOOD Timed 09/04/2024 12:30 AM CDT BASIC METABOLIC PANEL (CALCIUM TOTAL) Timed 09/04/2024 12:30 AM CDT CBC W AUTO DIFFERENTIAL Timed 09/04/2024 12:30 AM CDT BLOOD GASES ART + COOX PANEL Timed 09/03/2024 6:47 PM CDT XR CHEST 1VW PORTABLE STAT 09/03/2024 3:52 PM CDT Status epilepticus (HCC) BRONCHOSCOPY STAT 09/03/2024 3:44 PM CDT XR CHEST 1VW PORTABLE STAT 09/03/2024 3:07 PM CDT Status epilepticus (HCC) BLOOD GASES ART + COOX PANEL STAT 09/03/2024 2:12 PM CDT XR CHEST 1VW PORTABLE STAT 09/03/2024 11:13 AM CDT Stage 3a chronic kidney disease (HCC) IRON + TRANSFERRIN PANEL Timed 09/03/2024 12:47 AM CDT FERRITIN Timed 09/03/2024 12:47 AM CDT ALBUMIN BLOOD Timed 09/03/2024 12:47 AM CDT PHOSPHORUS BLOOD Timed 09/03/2024 12:4 7 AM CDT MAGNESIUM BLOOD Timed 09/03/2024 12:47 AM CDT BASIC METABOLIC PANEL (CALCIUM TOTAL) Timed 09/03/2024 12:47 AM CDT CBC W AUTO DIFFERENTIAL Timed 09/03/2024 12:47 AM CDT HEMODIALYSIS INPATIENT Routine 09/03/2024 12:00 AM CDT BLOOD GASES ART + COOX PANEL Routine 09/02/2024 11:34 PM CDT CK BLOOD STAT 09/02/2024 5:04 PM CDT LACTIC ACID BLOOD STAT 09/02/2024 5:0 4 PM CDT XR CHEST 1VW PORTABLE Routine 09/02/2024 5:25 AM CDT MRSA (methicillin resistant Staphylococcus aureus) infection Nausea IRON + TRANSFERRIN PANEL Timed 09/02/2024 12:54 AM CDT FERRITIN Timed 09/02/2024 12:54 AM CDT ALBUMIN BLOOD Timed 09/02/2024 12:54 AM CDT PHOSPHORUS BLOOD Timed 09/02/2024 12:5 4 AM CDT MAGNESIUM BLOOD Timed 09/02/2024 12:54 AM CDT BASIC METABOLIC PANEL (CALCIUM TOTAL) Timed 09/02/2024 12:54 AM CDT CBC W AUTO DIFFERENTIAL Timed 09/02/2024 12:54 AM CDT GLUCOSE - POINT OF CARE Routine 09/01/2024 11:46 AM CDT GLUCOSE - POINT OF CARE Routine 09/01/2024 8:49 AM CDT BLOOD GASES ART + COOX PANEL Timed 09/01/2024 8:46 AM CDT HEMODIALYSIS INPATIENT Routine 09/01/2024 8:04 AM CDT XR CHEST 1VW PORTABLE Routine 09/01/2024 4:56 AM CDT ESRD (end stage renal disease) on dialysis (HCC) PHOSPHORUS BLOOD Timed 09/01/2024 12:4 9 AM CDT MAGNESIUM BLOOD Timed 09/01/2024 12:49 AM CDT BASIC METABOLIC PANEL (CALCIUM TOTAL) Timed 09/01/2024 12:49 AM CDT CBC W AUTO DIFFERENTIAL Timed 09/01/2024 12:49 AM CDT GLUCOSE - POINT OF CARE Routine 09/01/2024 12:48 AM CDT BLOOD GASES ART + COOX PANEL Routine 08/31/2024 4:29 PM CDT HIV-1 RNA PCR QUANTITATIVE Routine 08/31/2024 4:22 PM CDT Status epilepticus (HCC) CD4 (ABSOLUTE T4) Routine 08/31/2024 4:2 2 PM CDT Status epilepticus (HCC) HEMODIALYSIS INPATIENT Routine 08/31/2024 2:55 PM CDT XR CHEST 1VW PORTABLE STAT 08/31/2024 2:11 PM CDT Status epilepticus (HCC) PT EVAL AND TREAT Routine 08/31/2024 12: 13 PM CDT OT EVAL AND TREAT Routine 08/31/2024 12: 13 PM CDT BLOOD GASES ART + COOX PANEL Routine 08/31/2024 2:48 AM CDT HIV-1 RNA PCR QUANTITATIVE AM Draw 08/31/2024 1:10 AM CDT PHOSPHORUS BLOOD Timed 08/31/2024 1:10 AM CDT MAGNESIUM BLOOD Timed 08/31/2024 1:10 AM CDT BASIC METABOLIC PANEL (CALCIUM TOTAL) Timed 08/31/2024 1:10 AM CDT CBC W AUTO DIFFERENTIAL Timed 08/31/2024 1:[address] HEAD WO CONTRAST Routine 08/30/2024 6 :47 PM CDT Status epilepticus (HCC) Seizure (HCC) GLUCOSE - POINT OF CARE Routine 08/30/2024 2:31 PM CDT EKG 12-LEAD Routine 08/30/2024 2:03 PM CDT Status epilepticus (HCC) HEMODIALYSIS INPATIENT Routine 08/30/2024 11:10 AM CDT SYPHILIS ANTIBODY CASCADING REFLEX AM Draw 08/29/2024 10:46 PM CDT Squamous cell carcinoma of anal margin End-stage renal disease on hemodialysis (HCC) HIV-1/HIV-2 RNA QUALITATIVE Timed 08/29/2024 10:46 PM CDT RPR W REFLEX TO TITER (MONITOR) Timed 08/29/2024 10:46 PM CDT PHOSPHORUS BLOOD Timed 08/29/2024 10:4 6 PM CDT MAGNESIUM BLOOD Timed 08/29/2024 10:46 PM CDT BASIC METABOLIC PANEL (CALCIUM TOTAL) Timed 08/29/2024 10:46 PM CDT CBC W AUTO DIFFERENTIAL Timed 08/29/2024 10:46 PM CDT HEMOGLOBIN A1C Timed 08/29/2024 10:46 PM CDT HEPATITIS B SURFACE ANTIGEN CONFIRM RFLXED STAT 08/29/2024 6:33 PM CDT HEPATITIS B SURFACE ANTIGEN W RFLX CONFIRMATION STAT 08/29/2024 6:33 PM CDT HEMODIALYSIS INPATIENT Routine 08/29/2024 4:[address] ANGIO CHEST PULM EMBOLISM Routine 08/29/2024 2:57 PM CDT Hypercoagulable state (HCC) FOLATE Routine 08/29/2024 2:09 PM CDT T4 FREE Routine 08/29/2024 2:09 PM CDT CBC W AUTO DIFFERENTIAL Routine 08/29/2024 2:09 PM CDT TSH REFLEX FREE T4 Routine 08/29/2024 2: 09 PM CDT AMMONIA Routine 08/29/2024 2:09 PM CDT VITAMIN B12 Routine 08/29/2024 2:09 PM CDT CULTURE BLOOD STAT 08/29/2024 2:09 PM CDT CULTURE BLOOD STAT 08/29/2024 2:09 PM CDT BLOOD GASES ART + COOX PANEL STAT 08/29/2024 9:20 AM CDT DIFFERENTIAL MANUAL Routine 08/29/2024 3 :38 AM CDT Seizure (HCC) PHOSPHORUS BLOOD Routine 08/29/2024 3:38 AM CDT Seizure (HCC) MAGNESIUM BLOOD Routine 08/29/2024 3:38 AM CDT Seizure (HCC) LACTIC ACID BLOOD Routine 08/29/2024 3:3 8 AM CDT Seizure (HCC) CBC W AUTO DIFFERENTIAL Routine 08/29/2024 3:38 AM CDT Seizure (HCC) BASIC METABOLIC PANEL (CALCIUM TOTAL) Routine 08/29/2024 3:38 AM CDT Seizure (HCC) GLUCOSE - POINT OF CARE Routine 08/28/2024 11:48 PM CDT XR ABDOMEN KUB PORTABLE STAT 08/28/2024 9:19 PM CDT Seizure (HCC) XR CHEST 1VW PORTABLE STAT 08/28/2024 9:19 PM CDT Seizure (HCC) BLOOD GASES ART + COOX PANEL Routine 08/28/2024 8:58 PM CDT Seizure (HCC) LIPID PROFILE Routine 06/24/2022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 CDT [facility] ([facility]) Comment:The quantitative ran ge of this assay is 15 IU/mL to 100 million IU/mL. Blood BLOOD SPECIMEN / Unknown Venipuncture / Unknown 09/08/2024 12:33 AM CDT 09/08/2024 12:33 AM CDT Narrative [facility] ([facility]) - 09/11/2024 6:09 PM CDT Performed at: [facility] [id number] Personal Finance Instructor: Juan J Da Silva MD, Phone: [phone] Tanisha Freitas MD LAB - SEROLOGY ORDERABLES Final Result [facility] ([facility]) [address] [place] [address] * (ABNORMAL) HEMOGLOBIN (09/07/2024 2:36 PM CDT) Hemoglobin 7.2(L) 13.3 - 17.5 g/dL 09/07/2024 2:52 PM CDT [facility] Blood BLOOD SPECIMEN / Unknown Venipuncture / Unknown 09/07/2024 2:36 PM CDT 09/07/2024 2:42 PM CDT Tanisha Freitas MD LAB - HEMATOLOGY ORDERABLES Trina l Result [facility] [address] [place] [phone], [facility] [phone] * TRANSFUSE RED BLOOD CELL LEUKOREDUCED UNIT(S) (09/07/2024 2:30 PM CDT) Tanisha Freitas MD NURSING - BLOOD PROD TRANSFUSION Final Result * BLOOD TYPE VERIFICATION (09/07/2024 11:26 AM CDT) ABO Rh O POS 09/07/2024 12:15 PM CDT [facility] Blood Bank BLOOD SPECIMEN / Unknown Venipuncture / Unknown 09/07/2024 11:26 AM CDT 09/07/2024 11:35 AM CDT us Tanisha Freitas MD LAB - BLOOD BANK ORDERABLES Trina l Result [facility] [address] [place] [id number], [facility] [phone] * PREPARE (CROSSMATCH) RBC UNIT(S), 1 Units (09/07/2024 9:35 AM CDT) Only the most recent of4 resultswithin the time period is included. [facility] Unit Description AS1 LR PRBC [facility] Unit ABO O [facility] Unit Rh POS [facility] Product Number R02 [facility] Unit Donor # [id number] [facility] Unit Status transfused [facility] Product Code [id number] [facility] Blood Type Barcode 5100 [facility] Expiration Date [id number] S BLOOD BANK LAB Blood Bank BLOOD SPECIMEN / Unknown 09/07/2024 9:35 AM CDT 09/07/2024 9:56 AM CDT Tanisha Freitas MD LAB - BLOOD BANK ORDERABLES Trina l Result Performing Organization Address City/[facility]/ZIP Co de Phone Number [facility] [address] [place] [address], [facility] [phone] * TYPE + SCREEN PANEL (09/07/2024 9:35 AM CDT) [facility] Antibody Screen NEG 10:52 AM CDT [facility] ABO Rh O POS 09/07/2024 10:52 AM CDT [facility] Blood Bank BLOOD SPECIMEN / Unknown Venipuncture / Unknown 09/07/2024 9:35 AM CDT 09/07/2024 9:56 AM CDT Tanisha Freitas MD LAB - BLOOD BANK ORDERABLES Trina l Result [facility] [address] [place] [phone], [facility] [phone] * HEPARIN INDUCED PLATELET ANTIBODY W/ RFLX (09/07/2024 5:25 AM CDT) [facility] Hep-Ind Thrombocytopenia PF4 Antibody IgG 0.317 <=0.399 OD 09/09/2024 1:00 PM CDT [facility] ([facility]) Comment: Heparin-Induced Thrombocytopenia Antibodies were not detected. Serotonin Release Assay will not be performed. Interpretive Data: Hep-Ind Thrombocytopenia PF4 Ab, IgG This PHILLIP assay detects the presence of IgG antibodies to heparin-platelet factor 4 (PF4) complexes. Most cases of heparin-induced thrombocytopenia (HIT) are caused by IgG antibodies to heparin-PF4, rather than IgA or IgM antibodies. Negative results have a good negative predictive value for HIT, although rare false-negative results may occur. Positive PHILLIP results are sensitive but not completely specific for HIT. HIT is a clinicopathologic diagnosis. Clinical findings and the results of other laboratory tests must be taken into consideration. Higher optical density (OD) values in the IgG PHILLIP test correlate with a higher likelihood of positivity in platelet activation assays, such as the serotonin release assay (MOY), and an increased likelihood of clinical HIT. A clinical scoring system to assess pretest probability of HIT along with other guidance for diagnosis is available in [facility] Consult: [email or web address] . Performed By: [employer] [address] [place] [address] Detective Bowling Alley: Cedric Vazquez MD, PhD CLIA Number: [id number] Blood BLOOD SPECIMEN / Unknown Venipuncture / Unknown 09/07/2024 5:25 AM CDT 09/07/2024 5:37 AM CDT Tanisha Freitas MD LAB - SEROLOGY ORDERABLES Final Result [facility]) [address] * SEROTONIN RELEASE ASSAY PANEL (09/07/2024 5:25 AM CDT) Pathologist [facility] OMY Unfractionated Heparin Low Dose 0 % 09/10/2024 2:21 PM CDT [facility] ([facility]) MOY Unfractionated Heparin High Dose 0 % 09/10/2024 2:21 PM CDT [facility] ([facility]) MOY Unfractionated Heparin Negative Negative 09/10/2024 2:21 PM CDT [facility]) Interpretation MOY Unfractionated Heparin See Note 09/10/2024 2:21 PM CDT [facility] ([facility]) Comment: This patient's specimen demonstrates a negative result in the serotonin release assay. A diagnosis of heparin-induced thrombocytopenia (HIT) is unlikely, but not completely excluded. A positive result would demonstrate >= 20% serotonin release from reagent platelets in the presence of patient specimen and low-dose heparin (0.1 U/mL) and <20% serotonin release from reagent platelets (inhibition of the reaction) in the presence of patient specimen and high-dose heparin (100 U/mL). Additional information regarding diagnosis of HIT is available at [employer]. INTERPRETIVE INFORMATION: MOY, Unfractionated Heparin This test was developed and its performance characteristics determined by [employer]. It has not been cleared or approved by the [place] Food and Drug Administration. This test was performed in a CLIA certified laboratory and is intended for clinical purposes. Performed By: [email or web address] [address] [place] [address] Detective Bowling [place]ley: Cedric Vazquez MD, PhD CLIA Number: [id number] Blood BLOOD SPECIMEN / Unknown Venipuncture / Unknown 09/07/2024 5:25 AM CDT 09/07/2024 5:32 AM CDT Tanisha Freitas MD LAB - CHEMISTRY ORDERABLES Final Result [facility]) [address] [place] [address], [facility] * (ABNORMAL) BLOOD GASES ARTURO + COOX PANEL (09/06/2024 2:09 PM CDT) Only the most recent of3 resultswithin the time period is included. pH Venous 7.32 7.32 - 7.42 pH 09/06/2024 2:26 PM CDT [facility] pO2 Venous 30(L) 35 - 40 mmHg 09/06/2024 2:26 PM CDT [facility] pCO2 Venous 45 40 - 50 mmHg 09/06/2024 2:26 PM CDT [facility] HCO3 Venous 23.2 20 - 30 mmol/L 09/06/2024 2:26 PM [facility] Base Excess Venous -2.8(L) -2.0 - 2.0 mmol/L 09/06/2024 2:26 PM [facility] Oxyhemoglobin Venous 42.1 % 08/22 2:26 PM [facility] Deoxyhemoglobin (HHB) Venous % 55.6 % 09/06/2024 2:26 PM [facility] Methemoglobin <0.8 0.0 - 2.0 % 09/06/2024 2:26 PM [facility] Carboxyhemoglobin 2.2(H) 0.0 - 2.0 % 2024 2:26 PM [facility] O2 Content Venous 4.7 Interpret within clinical context ml/dL 09/06/2024 2:26 PM [facility] Hemoglobin by COOX 7.9(L) 12.0 - 17.6 g/dL 09/06/2024 2:26 PM [facility] O2 Saturation Venous 43(L) >=70 % 08/22 2:26 PM [facility] FI O2 Mixed Venous 36.0 % 2024 2:26 PM [facility] Blood BLOOD SPECIMEN / Unknown Venipuncture / Unknown 09/06/2024 2:09 PM CDT 09/06/2024 2:[address] [facility] - 09/06/2024 2:26 PM [facility] Carboxyhemoglobin Normal Concentration: Non-smokers: 0-2%; Smokers: 0-9%; Toxic: >20% us Tanisha Freitas MD LAB - BLOOD GASES ORDERABLES Fin al Result [facility] [address] [place] [phone], [facility] [phone] * (ABNORMAL) PLATELET COUNT AUTO CITRATED BLOOD (09/06/2024 10:44 AM CDT) [facility] Platelet Count Citrated 35(L) 150 - 420 x10E9/L 09/06/2024 1:37 PM [facility] Blood BLOOD SPECIMEN / Unknown Lab Venipuncture / Unknown 09/06/2024 10:44 AM CDT 09/06/2024 1:03 PM CDT Narrative [facility] - 09/06/2024 1:37 PM CDT This test was developed and its performance characteristics determined by the clinical laboratories of [facility] and [facility]. It has not been cleared and approved by the US Food and Drug Administration. Tanisha Freitas MD LAB - HEMATOLOGY ORDERABLES Trina sabiha Result [facility] [address] [place] [phone], [facility] [phone] * HISTOPLASMA ANTIBODIES BY CF & ID (09/06/2024 9:23 AM CDT) Histoplasma Mycelia CF Antibody <1:8 <1:8 09/10/2024 10:50 PM CDT [facility] ([facility]) Comment: INTERPRETIVE INFORMATION: Histoplasma Mycelia Antibodies by CF A titer of 1:8 or greater is generally considered presumptive evidence of histoplasmosis. A titer of 1:32 or greater or rising titers indicate strong presumptive evidence of histoplasmosis. Cross reactions, usually at lower titers, may occur with other fungal diseases. Histoplasma yeast CF Antibody <1:8 <1:8 09/10/2024 10:50 PM CDT [facility] ([facility]) Comment: INTERPRETIVE INFORMATION: Histoplasma Yeast Antibodies by CF A titer of 1:8 or greater is generally considered presumptive evidence of histoplasmosis. A titer of 1:32 or greater or rising titers indicate strong presumptive evidence of histoplasmosis. Cross reactions, usually at lower titers, may occur with other fungal diseases. Histoplasma Antibody Not Detected Not Detected 09/10/2024 10:50 PM CDT [facility] ([facility]) Comment: No Histoplasma antibodies were detected. This result does not exclude Histoplasma infection. Performed By: [employer] [facility] [address] [place] [address] Detective Bowling [place]ley: Cedric Vazquez MD, PhD CLIA Number: [id number] Blood BLOOD SPECIMEN / Unknown Venipuncture / Unknown 09/06/2024 9:23 AM CDT 09/06/2024 9:31 AM CDT Tanisha Freitas MD LAB - CHEMISTRY ORDERABLES Final Result [facility]) [address] [place] [address], [facility] * BLASTOMYCES DERMATITIDIS AG QNT NON URINE (09/06/2024 9:23 AM CDT) [facility] Blastomyces dermatitidis Antigen None Detected ng/mL 09/15/2024 4:31 PM CDT [facility] ([facility]) Comment: Reference Interval: None Detected Reportable Range: Results reported as ng/mL in 0.31 - 20.00 ng/mL range Results above 20.00 ng/mL are reported as 'Positive, Above the Limit of Quantification' When tested in cultures of 100,000 1,000,000 organisms/mL, cross-reactions occurred with Histoplasma spp., Coccidioides spp., Paracoccidioides brasiliensis, Talaromyces marneffei, Aspergillus nidulans, and Celia tropicalis. tropicalis. This test was developed and its performance characteristics determined by [facility]. It has not been cleared or approved by the FDA; however, FDA clearance or approval is not currently required for clinical use. The results are not intended to be used as the sole means for clinical diagnosis or patient management decisions. This document contains confidential privileged information. The recipient of the information is prohibited from disclosing the contents to another democrat without authorization. If you are not the intended recipient, you are hereby notified that the disclosure of the contents is strictly prohibited. Please notify [facility] immediately if you received this information in error. Detective Bowling Alley: Cuba Alegria MD [address] [place] [address] ALQ = Above the limit of Quantification Performed At: [facility] [address] [place] [address] Controlled Atmospheric Furnace Brazer: Cuba Alegria CLIA Number: [id number] Blastomyces dermatitidis Antigen Source Serum 09/15/2024 4:31 PM CDT [facility] ([facility]) Blood BLOOD SPECIMEN / Unknown Venipuncture / Unknown 09/06/2024 9:23 AM CDT 09/06/2024 9:31 AM CDT Tanisha Freitas MD LAB - MICROBIOLOGY ORDERABLES Fi nal Result Performing Organization Address [facility]/ZIP Co de Phone Number [facility]) [address] [place] [address] * ASPERGILLUS ANTIBODY BY CF (09/06/2024 9:23 AM CDT) Aspergillus Antibody CF <1:8 <1:8 09/08/2024 10:29 PM CDT [facility] ([facility]) Comment: INTERPRETIVE INFORMATION: Aspergillus Antibodies by CF A titer of 1:8 or greater suggests Aspergillus infection or allergy. Cross-reactions with dimorphic fungi are not unusual within the genus Aspergillus. Performed By: [employer] [address] [place] [address] Detective Bowling Alley: Cedric Vazquez MD, PhD CLIA Number: [id number] Blood BLOOD SPECIMEN / Unknown Venipuncture / Unknown 09/06/2024 9:23 AM CDT 09/06/2024 9:31 AM CDT Tanisha Freitas MD LAB - SEROLOGY ORDERABLES Final Result Performing Organization Address [facility] Co de Phone Number [facility]) [address] [place] [address] * COCCIDIOIDES ANTIBODY IGG/IGM PANEL (09/06/2024 9:23 AM CDT) Coccidioides Antibody IgM 0.0 <=0.9 IV 09/10/2024 8:17 AM CDT [facility] ([facility]) Comment: INTERPRETIVE INFORMATION: Coccidioides Antibody, IgM: 0.9 IV or less: Negative - No significant level of Coccidioides IgM antibody detected. 1.0 - 1.4 IV: Equivocal - Questionable presence of Coccidioides IgM antibody detected. Repeat testing in 10-14 days may be helpful. 1.5 IV or greater: Positive - Presence of IgM antibody to Coccidioides detected, suggestive of current or recent infection. In most symptomatic patients, IgM antibody usually appears by the second week of infection and disappears by the fourth month. Both tube precipitin (TP) and CF antigens are represented in the PHILLIP tests. Performed By: [employer] [address] [place] [address] Detective Bowling Alley: Cedric Vazquez MD, PhD CLIA Number: [id number] Coccidioides Antibody IgG 0.4 <=0.9 IV 09/10/2024 8:17 AM CDT [facility] ([facility]) Comment: INTERPRETIVE INFORMATION: Coccidioides Antibody, Ig.9 IV or less: Negative - No significant level of Coccidioides IgG antibody detected. 1.0 - 1.4 IV: Equivocal - Questionable presence of Coccidioides IgG antibody detected. Repeat testing in 10-14 days may be helpful. 1.5 IV or greater: Positive - Presence of IgG antibody to Coccidioides detected, suggestive of current or past infection. IgG antibody usually appears by the third week of infection and may persist for years. Both tube precipitin (TP) and CF antigens are represented in the PHILLIP tests. Blood BLOOD SPECIMEN / Unknown Venipuncture / Unknown 09/06/2024 9:23 AM CDT 09/06/2024 9:31 AM CDT Tanisha Freitas MD LAB - CHEMISTRY ORDERABLES Final Result [facility]) [address] [place] [address], [facility] * ASPERGILLUS GALACTOMANNAN ANTIGEN BLOOD (09/06/2024 9:23 AM CDT) Pathologist [facility] Aspergillus galactomannan Antigen Negative Negative 09/08/2024 2:20 PM CDT [facility] ([facility]) Comment: INTERPRETIVE INFORMATION: Aspergillus Galactomannan Antigen by EIA Negative results do not exclude the diagnosis of invasive aspergillosis. A single positive test result (index equal to or greater than 0.5) should be clinically correlated by testing a separate serum specimen because many agents (e.g. foods, antibiotics) may cross-react with the test. If invasive aspergillosis is suspected in high-risk patients, serial sampling is recommended. Performed By: [employer] [address] [place] [address] Detective Bowling Alley: Cedric Vazquez MD, PhD CLIA Number: [id number] Aspergillus galactomannan Index 0.12 09/08/2024 2:20 PM CDT [facility] ([facility]) Blood BLOOD SPECIMEN / Unknown Venipuncture / Unknown 09/06/2024 9:23 AM CDT 09/06/2024 9:31 AM CDT Tanisha Freitas MD LAB - SEROLOGY ORDERABLES Final Result Performing Organization Address [facility] de Phone Number [facility]) [address] [place] [address] * ASPERGILLUS ANTIBODY BY ID (09/06/2024 9:23 AM CDT) Pathologist [facility] Aspergillus Antibody Immuno Diffusion Not Detected Not Detected 09/10/2024 10:47 PM CDT [facility]) Comment: No Aspergillus antibodies were detected. This result does not exclude Aspergillus infection. Performed By: [employer] [address] [place] [address] Detective Bowling Alley: Cedric Vazquez MD, PhD CLIA Number: [id number] Blood BLOOD SPECIMEN / Unknown Venipuncture / Unknown 09/06/2024 9:23 AM CDT 09/06/2024 9:31 AM CDT Tanisha Freitas MD LAB - CHEMISTRY ORDERABLES Final Result Performing Organization Address [facility] Co de Phone Number [facility]) [address] [place] [address] * CRYPTOCOCCUS ANTIGEN BLOOD (09/06/2024 9:23 AM CDT) Pathologist [facility] Cryptococcus Antigen Negative Negative 09/06/2024 2:31 PM CDT [facility] MICROBIOLOG[facility] Blood BLOOD SPECIMEN / Unknown Venipuncture / Unknown 09/06/2024 9:23 AM CDT 09/06/2024 9:31 AM CDT Tanisha Freitas MD LAB - SEROLOGY ORDERABLES Final Result [facility] [address] [place] [address], [facility] [phone] * (ABNORMAL) BLOOD GASES ART + COOX PANEL (09/05/2024 12:29 PM [facility]) Only the most recent of9 resultswithin the time period is included. pH Arterial 7.25(L) 7.35 - 7.45 pH 09/05/2024 12:46 PM [facility] pO2 Arterial 33(LL) 80 - 100 mmHg 09/05/2024 12:46 PM [facility] pCO2 Arterial 49(H) 35 - 45 mmHg 12:46 PM [facility] HCO3 Arterial 21.5 20.0 - 30.0 mmol/L 09/05/2024 12:46 PM [facility] BE Arterial -5.7(L) -2.0 - 2.0 mmol/L 09/05/2024 12:46 PM [facility] Oxyhemoglobin Arterial 41.1 % 09/05/2024 12:46 PM [facility] Dexoyhemoglobin (HHB) % 57.0 % 09/05/2024 12:46 PM [facility] Methemoglobin <0.8 0.0 - 2.0 % 09/05/2024 12:46 PM [facility] Carboxyhemoglobin 1.7 0.0 - 2.0 % 2024 12:46 PM [facility] O2 Content Arterial 5.8 Interpret within clinical context ml/dL 09/05/2024 12:46 PM [facility] Hemoglobin by COOX 9.9(L) 12.0 - 17.6 g/dL 09/05/2024 12:46 PM [facility] O2 Saturation Arterial 42(L) 90 - 100 % 09/05/2024 12:46 PM [facility] FI O2 Arterial 40.0 % 09/05/2024 12:46 PM [facility] Blood, arterial ARTERIAL BLOOD SPECIMEN / Unknown Arterial Puncture / Unknown 09/05/2024 12:29 PM CDT 09/05/2024 12:38 PM CDT Narrative [facility] - 09/05/2024 12:46 PM CDT Carboxyhemoglobin Normal Concentration: Non-smokers: 0-2%; Smokers: 0-9%; Toxic: >20% Tanisha Freitas MD LAB - BLOOD GASES ORDERABLES Fin al Result Performing Organization Address City/[facility]/ZIP Co de Phone Number [address] [address], [place] [phone] * (ABNORMAL) TRIGLYCERIDES BLOOD (09/05/2024 3:27 AM CDT) [facility] [facility] Triglycerides 434(H) <150 mg/dL 09/05/2024 3:59 AM CDT [facility] Comment: ATP III Classification of Triglycerides: <150 mg/dL: Normal 150 - 199 mg/dL: Borderline High 200 - 400 mg/dL: High >500 mg/dL: Very High Blood BLOOD SPECIMEN / Unknown Venipuncture / Unknown 09/05/2024 3:27 AM CDT 09/05/2024 3:34 AM CDT Agustín Ruth MD LAB - CHEMISTRY ORDERABLES Final Result Performing Organization Address [facility]/ZIP Co de Phone Number [address] [address], [place] [phone] * RESPIRATORY PANEL WITH SARS-COV-2 BY PCR (STL) (09/04/2024 5:10 PM CDT) [facility] Adenovirus PCR Not detected Not detected 09/04/2024 9:09 PM CDT [facility] Coronavirus 229E PCR Not detected Not detected 09/04/2024 9:09 PM CDT [facility] Coronavirus HKU1 PCR Not detected Not detected 09/04/2024 9:09 PM CDT [facility] Coronavirus NL63 PCR Not detected Not detected 09/04/2024 9:09 PM CDT [facility] Coronavirus OC43 PCR Not detected Not detected 09/04/2024 9:09 PM CDT [facility] COVID-19 PCR Not detected Not detected 09/04/2024 9:09 PM CDT [facility] Human Metapneumovirus PCR Not detected Not detected 09/04/2024 9:09 PM CDT [facility] Human Rhinovirus/Enterov irus PCR Not detected Not detected 09/04/2024 9:09 PM CDT [facility] Influenza A PCR Not detected Not detected 09/04/2024 9:09 PM CDT [facility] Influenza B PCR Not detected Not detected 09/04/2024 9:09 PM CDT [facility] Parainfluenza Virus 1 PCR Not detected Not detected 09/04/2024 9:09 PM CDT [facility] Parainfluenza Virus 2 PCR Not detected Not detected 09/04/2024 9:09 PM CDT [facility] Parainfluenza Virus 3 PCR Not detected Not detected 09/04/2024 9:09 PM CDT [facility] Parainfluenza Virus 4 PCR Not detected Not detected 09/04/2024 9:09 PM CDT [facility] Respiratory Syncytial Virus PCR Not detected Not detected 09/04/2024 9:09 PM CDT [facility] Bordetella parapertussis PCR Not detected Not detected 09/04/2024 9:09 PM CDT [facility] Bordetella pertussis PCR Not detected Not detected 09/04/2024 9:09 PM CDT [facility] Chlamydia pneumoniae PCR Not detected Not detected 09/04/2024 9:09 PM CDT [facility] Mycoplasma pneumoniae PCR Not detected Not detected 09/04/2024 9:09 PM CDT [facility] Microbiology SPECIMEN FROM NASOPHARYNGEAL STRUCTURE / Unknown Collection / Unknown 09/04/2024 5:10 PM CDT 09/04/2024 5:12 PM CDT Narrative [facility] - 09/04/2024 9:09 PM CDT This nucleic amplification assay has received FDA authorization via the [employer]. Tanisha Freitas MD LAB - MICROBIOLOGY ORDERABLES Fi nal Result [facility] [address] [place] [address], [facility] [phone] * CT Angio Aorta for Dissection (09/04/2024 2:47 PM CDT) Anatomical Region Laterality Modality Abdomen Computed Tomogra phy 09/04/2024 3:05 PM CDT Impressions 09/05/2024 11:02 AM CDT Impression: 1.No aortic dissection, intramural hematoma, penetrating atherosclerotic ulcer, or aneurysm. Proximal descending aorta is mildly ectatic measuring 3.3 cm in diameter. 2.Multiple enlarged mediastinal lymph nodes measuring up to 1.5 cm on short axis. > Dictated by Allison Belle MD, (residential framing carpenter). > Dictated by Allison Belle MD (Electronics Utility Worker) 09/04/2024 3:05 PM I, Juan Ramon Asher MD have personally reviewed and interpreted this examination/study. > Interpreting Provider: Juan Ramon Asher MD on 09/05/2024 11:02 AM Narrative 09/05/2024 11:02 AM CDT PROCEDURE: CT ANGIO AORTA FOR DISSECTION, DATE/TIME OF EXAM: 09/04/2024 2:50 PM, LOCATION [facility] INDICATION: I77.1: Tortuous aorta ADDITIONAL CLINICAL INFORMATION: Ordering Provider Reason For Exam: why acutely widened mediastinum? also aidee orozco and [facility] Technologist Note: Additional: COMPARISON: CTA chest PE from 08/29/2024. TECHNIQUE: CT of the chest, abdomen, and pelvis was performed prior to and following the uneventful administration of 100 mL of Isovue 370 intravenous contrast according to an angiogram dissection protocol. Three dimensional postprocessing was performed by the technologist and sent to the workstation for review. Findings: Thoracic aorta: No aortic dissection, intramural hematoma, penetrating atherosclerotic ulcer, or aneurysm. The proximal descending aorta is mildly ectatic at 3.3 cm in diameter. Scattered atherosclerotic calcifications along the arch of the aorta. Thoracic aortic branches: Subclavian arteries: Patent without significant focal stenosis. Brachiocephalic artery: Patent without significant focal stenosis. Pulmonary artery: Normal. Coronary arteries: Atherosclerotic. Abdominal aorta: No aortic dissection, intramural hematoma, penetrating atherosclerotic ulcer, or aneurysm. Scattered atherosclerotic calcifications. Abdominal aortic branches: Celiac axis: Patent without significant focal stenosis. Superior mesenteric artery: Atherosclerotic but patent without significant focal stenosis. Inferior mesenteric artery: Patent without significant focal stenosis. Right renal artery: Atherosclerotic but patent without significant focal stenosis. Left renal artery: Atherosclerotic but patent without significant focal stenosis. Right common iliac artery: Atherosclerotic but patent without significant focal stenosis. Right internal iliac artery: Atherosclerotic but patent without significant focal stenosis. Right external iliac artery: Atherosclerotic but patent without significant focal stenosis. Left common iliac artery: Atherosclerotic but patent without significant focal stenosis. Left internal iliac artery: Atherosclerotic with mild multifocal stenoses. Left external iliac artery: Atherosclerotic but patent without significant focal stenosis. Chest: Lower Neck and Axillae: Endotracheal tube terminates above the level of the heather. Lungs: Centrilobular and paraseptal emphysema is present. Atelectasis in the right posterior lower lobe. No pleural fluid or pneumothorax is present. Heart and Pericardium: The cardiac chambers are normal in size. No pericardial fluid or thickening is present. The coronary arteries are atherosclerotic. Mediastinum and Trice: Multiple enlarged mediastinal lymph nodes, the largest measures up to 1.5 cm in the pretracheal region (series 3, image 24). Abdomen/pelvis: Liver: There is a small calcified granuloma in hepatic segment 4A. Gallbladder and Bile Ducts: Normal. Spleen: Normal. Pancreas: Normal. Adrenals: Normal. Kidneys: Normal. Gastrointestinal: Enteric tube terminates in the gastric body. The stomach and visualized loops of large and small bowel are unremarkable. The appendix is not seen; however, no inflammatory changes are seen in the right lower quadrant. Mesentery/Peritoneum/Retroperitoneum: No free intraperitoneal air. No free fluid in the abdomen or pelvis. Bladder: The bladder is partially distended. Reproductive Organs: The prostate is normal. Bones: Bone windows demonstrate no suspicious lytic or blastic lesions. The visible osseous structures are intact. Degenerative changes are seen in the spine. Soft tissues: Fat-containing left-sided inguinal hernia. Mild subcutaneous edema in the anterior abdominal wall is likely secondary to subcutaneous injections. 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 TECHNIQUE: CT of the chest, abdomen, and pelvis was performed prior toand following the uneventful administration of 100 mL of Isovue 370intravenous contrast according to an angiogram dissection protocol. Threedimensional postprocessing was performed by the technologist and sent to the workstation for review. Findings: Thoracic aorta: No aortic dissection, intramural hematoma, penetrating atherosclerotic ulcer, or aneurysm. The proximal descending aorta ismildly ectatic at 3.3 cm in diameter. Scattered atherosclerotic calcifications along the arch of the aorta. Thoracic aortic branches: Subclavian arteries: Patent without significant focal stenosis. Brachiocephalic artery: Patent without significant focal stenosis. Pulmonary artery: Normal. Coronary arteries: Atherosclerotic. Abdominal aorta: No aortic dissection, intramural hematoma, penetrating atherosclerotic ulcer, or aneurysm. Scattered atherosclerotic calcifications. Abdominal aortic branches: Celiac axis: Patent without significant focal stenosis. Superior mesenteric artery: Atherosclerotic but patent withoutsignificant focal stenosis. Inferior mesenteric artery: Patent without significant focal stenosis. Right renal artery: Atherosclerotic but patent without significant focal stenosis. Left renal artery: Atherosclerotic but patent without significant focal stenosis. Right common iliac artery: Atherosclerotic but patent withoutsignificant focal stenosis. Right internal iliac artery: Atherosclerotic but patent withoutsignificant focal stenosis. Right external iliac artery: Atherosclerotic but patent withoutsignificant focal stenosis. Left common iliac artery: Atherosclerotic but patent without significant focal stenosis. Left internal iliac artery: Atherosclerotic with mild multifocalstenoses. Left external iliac artery: Atherosclerotic but patent withoutsignificant focal stenosis. Chest: Lower Neck and Axillae: Endotracheal tube terminates above the level of the heather. Lungs: Centrilobular and paraseptal emphysema is present. Atelectasis in theright posterior lower lobe. No pleural fluid or pneumothorax is present. Heart and Pericardium: The cardiac chambers are normal in size. No pericardial fluid orthickening is present. The coronary arteries are atherosclerotic. Mediastinum and Trice: Multiple enlarged mediastinal lymph nodes, the largest measures up to1.5 cm in the pretracheal region (series 3, image 24). Abdomen/pelvis: Liver: There is a small calcified granuloma in hepatic segment 4A. Gallbladder and Bile Ducts: Normal. Spleen: Normal. Pancreas: Normal. Adrenals: Normal. Kidneys: Normal. Gastrointestinal: Enteric tube terminates in the gastric body. The stomach and visualized loops of large and small bowel are unremarkable. The appendix is notseen; however, no inflammatory changes are seen in the right lower quadrant. Mesentery/Peritoneum/Retroperitoneum: No free intraperitoneal air. No free fluid in the abdomen or pelvis. Bladder: The bladder is partially distended. Reproductive Organs: The prostate is normal. Bones: Bone windows demonstrate no suspicious lytic or blastic lesions. The visible osseous structures are intact. Degenerative changes are seen inthe spine. Soft tissues: Fat-containing left-sided inguinal hernia. Mild subcutaneous edema inthe anterior abdominal wall is likely secondary to subcutaneous injections. Impression: 1.No aortic dissection, intramural hematoma, penetrating atherosclerotic ulcer, or aneurysm. Proximal descending aorta is mildly ectaticmeasuring 3.3 cm in diameter. 2.Multiple enlarged mediastinal lymph nodes measuring up to 1.5 cm onshort axis. > Dictated by Allison Belle MD, (residential framing carpenter). > Dictated by Allison Belle MD (Electronics Utility Worker) 09/04/2024 3:05 PM I, Juan Ramon Asher MD have personally reviewed and interpreted this examination/study. > Interpreting Provider: Juan Ramon Asher MD on 09/05/2024 11:02 AM us Tanisha Freitas MD CT ORDERABLES Final Result * MRSA DNA PCR (09/04/2024 1:02 PM CDT) MRSA DNA by PCR Not detected Not detected 09/04/2024 7:38 PM CDT [facility] Microbiology SPECIMEN FROM NASAL FOSSAE / Unknown Collection / Unknown 09/04/2024 1:02 PM CDT 09/04/2024 1:07 PM CDT Narrative [facility]CRO[facility] - 09/04/2024 7:38 PM CDT Methicillin-resistant Staphylococcus aureus (MRSA) DNA is not detected (presumed not colonized with MRSA). us Tanisha Freitas MD LAB - MICROBIOLOGY ORDERABLES Fi nal Result [facility]CROBI[facility] [address] [place], [place] [address], [facility] [phone] * (ABNORMAL) CULTURE SPUTUM+GRAM STAIN (09/04/2024 1:02 PM CDT) Culture Light Pseudomonas aeruginosa(A) YUE 09/06/2024 12:11 PM CDT [facility] MICROBIOLOGY Gram Stain >= 25 per low power field Polymorphonuclear cells 09/06/2024 12:11 PM CDT [facility] MICROBIOLOGY Gram Stain <10 per low power field Squamous epithelial cells 09/06/2024 12:11 PM CDT [facility]CROBIOLOG[facility] Gram Stain Light Gram-positive cocci 09/06/2024 12:11 PM CDT [facility] MICROBIOLOG[facility] Gram Stain Light Gram-negative bacilli 09/06/2024 12:11 PM CDT [facility] MICROBIOLOGY Microbiology SPUTUM / Unknown Collection / Unknown 09/04/2024 1:02 PM CDT 09/04/2024 1:06 PM CDT Narrative Organism Antibiotic Method Susceptibility Pseudomonas aeruginosa Cefepime YUE 4 ug/mL: Susceptible Pseudomonas aeruginosa Ceftazidime YUE 4 ug/mL: Susceptible Pseudomonas aeruginosa Ciprofloxacin YUE <=0.25 ug/mL: Susceptible Pseudomonas aeruginosa Gentamicin YUE Resistant Pseudomonas aeruginosa Meropenem YUE <=0.25 ug/mL: Susceptible Pseudomonas aeruginosa Piperacillin-tazobactam YUE 16 ug/mL: Susceptible Pseudomonas aeruginosa Tobramycin YUE <=1 ug/mL: Susceptible Tanisha Freitas MD LAB - MICROBIOLOGY ORDERABLES Fi nal Result [facility]CROBIOLOGY [address] [place] [address], [facility] [phone] * BRONCHOSCOPY (09/03/2024 3:44 PM CDT) Narrative [facility] - 09/03/2024 3:44 PM CDT Agustín Ruth MD 09/03/2024 4:11 PM FIBEROPTIC BRONCHOSCOPY PROCEDURE NOTE Patient: Thompson Salcedo Date: 09/03/24 A time out was held prior to initiating the procedure Indication: high level pressor Consent: Informed consent was obtained from the patient Performed by: Agustín Ruth MD Medication: The patient was on propofol, fentanyl prior to the procedure to facilitate synchrony with the mechanical ventilator and these were continued. Description of procedure: The fiberoptic bronchoscope was introduced through the endotracheal tube to the level of the main heather. There were white colored thick secretions in the both sides bronchial tree. These were vigorously suctioned.There was minimal irritation of the airway associated with the procedure there was no active bleeding at the end of the procedure. Samples: No samples were sent as this was a therapeutic bronchoscopy. COMPLICATION(S): The patient tolerated the procedure well with no evidence of hypotension afterwards, and there were no complications. us Agustín Ruth MD RESPIRATORY THERAPY ORDERABLES F inal Result Performing Organization Address City/[facility] de Phone Number [facility] * (ABNORMAL) IRON + TRANSFERRIN PANEL (09/03/2024 12:47 AM CDT) Only the most recent of2 resultswithin the time period is included. Iron 112 50 - 175 ug/dL 09/03/2024 1:26 AM CDT [facility] Transferrin 128(L) 174 - 382 mg/dL 09/03/2024 1:26 AM CDT [facility] Transferrin Saturation % 70(H) 16 - 50 % 09/03/2024 1:26 AM CDT [facility] TIBC Calculated 160(L) 240 - 450 ug/dL 09/03/2024 1:26 AM CDT [facility] Blood BLOOD SPECIMEN / Unknown Venipuncture / Unknown 09/03/2024 12:47 AM CDT 09/03/2024 12:50 AM CDT us Agustín Ruth MD LAB - CHEMISTRY ORDERABLES Final Result Performing Organization Address [facility] Co de Phone Number [facility] [address] [place] [address], [facility] [phone] * (ABNORMAL) FERRITIN (09/03/2024 12:47 AM CDT) Only the most recent of2 resultswithin the time period is included. Ferritin 1,523(H) 22 - 275 ng/mL 09/03/2024 2:17 AM CDT [facility] Comment:Result obtained by olivia puga. Blood BLOOD SPECIMEN / Unknown Venipuncture / Unknown 09/03/2024 12:47 AM CDT 09/03/2024 12:50 AM CDT us Agustín Ruth MD LAB - CHEMISTRY ORDERABLES Final Result [address] [address], [place] [phone] * LACTIC ACID BLOOD (09/02/2024 5:04 PM CDT) Only the most recent of2 resultswithin the time period is included. [facility] Lactic Acid-Stat 1.0 <=2.0 mmol/L 09/02/2024 5:36 PM CDT [facility] Blood BLOOD SPECIMEN / Unknown Venipuncture / Unknown 09/02/2024 5:04 PM CDT 09/02/2024 5:12 PM CDT us Agustín Ruth MD LAB - CHEMISTRY ORDERABLES Final Result Performing Organization Address [facility]/ZIP Co de Phone Number [address] [address], [place] [phone] * (ABNORMAL) CK BLOOD (09/02/2024 5:04 PM CDT) [facility] CK Total 499(H) 30 - 200 U/L 09/02/2024 5:36 PM CDT [facility] Blood BLOOD SPECIMEN / Unknown Venipuncture / Unknown 09/02/2024 5:04 PM CDT 09/02/2024 5:12 PM CDT us gAustín Ruth MD LAB - CHEMISTRY ORDERABLES Final Result Performing Organization Address City/[facility]/ZIP Co de Phone Number [address] [address], [place] [phone] * HIV-1 RNA PCR QUANTITATIVE (08/31/2024 4:22 PM CDT) Only the most recent of2 resultswithin the time period is included. [facility] HIV-1 RNA Quantitative PCR 200 copies/mL 09/04/2024 6:09 PM CDT [facility] ([facility]) Comment: The reportable range for this assay is 20 to 10,000,000 copies HIV-1 RNA/mL. log10 HIV-1 RNA Copies/mL 2.301 [id number]/ mL 09/04/2024 6:09 PM CDT [facility] ([facility]) Blood BLOOD SPECIMEN / Unknown Venipuncture / Unknown 08/31/2024 4:22 PM CDT 08/31/2024 4:30 PM CDT Narrative [facility] ([facility]) - 09/04/2024 6:09 PM CDT Performed at: 01 - [address] [id number] Personal Finance Instructor: Juan J Da Silva MD, Phone: [phone] us Randi Mansfield MD LAB - SEROLOGY ORDERABLES Final Result [facility]) [address] [place] [address] * CD4 (ABSOLUTE T4) (08/31/2024 4:22 PM CDT) Reason for test Status epilepticus (HCC) 345.3 09/01/2024 9:51 AM CDT [facility] Client Specimen ID # [id number] 09/01/2024 9:51 AM CDT [facility] Number of Markers 2 09/01/2024 9:51 AM CDT [facility] Flow Cytometry Results Differential Result Comment WBC Count /uL 6,300 % Lymphocytes 20 Lymphocyte Count u/L 1,260 Cell Region A: Lymphocytes Surface Marker Results % Absolute Count (cells/uL) CD4 17 214 09/01/2024 9:51 AM CDT [facility] Flow Cytometry Interpretation Testing is technical only and does not require an interpretation of results. 09/01/2024 9:51 AM CDT [facility] Reference Range Adult Normal Reference Range Adult (> 18 years) CD3 54-84 % CD4 33-63 % CD8 12-39 % CD19 5-19 % CD56 6-26 % CD4+CD45RA+ 30-50 % CD4+CD45RO+ 17-42 % CD19+CD27+ 7-48 % CD19+CD27+IgD+ 7-29 % CD19+CD27+IgD- 3-23 % CD19+VX63-IiH+ 29-93 % % 09/01/2024 9:51 AM CDT [facility] Disclaimer Test performed at [facility], [address] [place] [address], [address]. This test was developed and its performance characteristics determined by the Flow Cytometry Laboratory. It has not been cleared by the [place] Food and Drug Administration (FDA). The FDA has determined that such clearance or approval is not necessary. This test is used for clinical purposes. It should not be regarded as investigational or for research. This laboratory is regulated under the Clinical Laboratory Improvement Amendments of 1998 (CLIA) as a qualified to perform high complexity clinical testing. By law [place], CD4 lymphocyte counts on patients with HIV infection must be reported by the physician to the [facility] Health authority. 09/01/2024 9:51 AM CDT [facility] Embedded Images 9:51 AM CDT [facility] Blood BLOOD SPECIMEN / Unknown Venipuncture / Unknown 08/31/2024 4:22 PM CDT 08/31/2024 4:31 PM CDT Randi Mansfield MD LAB - HEMATOLOGY ORDERABLES Fin al Result [facility] [address] [place] [address]. [place] [address], [facility] [phone] * (ABNORMAL) HIV-1/HIV-2 RNA QUALITATIVE (08/29/2024 10:46 PM CDT) HIV-1 RNA Qualitative PCR Reactive(A) Non Reactive 09/02/2024 9:07 PM CDT [facility] ([facility] HIV-2 RNA Qualitative PCR Non Reactive Non Reactive 09/02/2024 9:07 PM CDT [facility] ([facility]) Blood BLOOD SPECIMEN / Unknown Venipuncture / Unknown 08/29/2024 10:46 PM CDT 08/29/2024 10:54 PM CDT Narrative [facility] ([facility]) - 09/02/2024 9:07 PM CDT Performed at: 01 - [address] [id number] Personal Finance Instructor: Juan J Da Silva MD, Phone: [phone] us Agustín Ruth MD LAB - CHEMISTRY ORDERABLES Final Result Performing Organization Address City/[facility]/ZIP Co de Phone Number [facility] ([facility]) [address] [place] [address] * (ABNORMAL) SYPHILIS ANTIBODY CASCADING REFLEX (08/29/2024 10:46 PM CDT) Treponema pallidum Antibody REACTIVE( A) Non-react reyna 08/30/2024 9:59 AM CDT [facility] Comment:Additional testing r equired for evaluation of syphilis. An RPR has been reflexively ordered and is in progress. Blood BLOOD SPECIMEN / Unknown Venipuncture / Unknown 08/29/2024 10:46 PM CDT 08/29/2024 10:54 PM CDT us Agustín Ruth MD LAB - SEROLOGY ORDERABLES Final Result Performing Organization Address [facility]/ZIP Co de Phone Number [address] [address], [facility] [phone] * (ABNORMAL) RPR W REFLEX TO TITER (MONITOR) (08/29/2024 10:46 PM CDT) RPR Monitor REACTIVE( A) Nonreactive 08/30/2024 2:43 PM CDT [facility] RPR Monitor Titer 1:4(A) (none) 08/30/2024 2:43 PM CDT [facility] Blood BLOOD SPECIMEN / Unknown Venipuncture / Unknown 08/29/2024 10:46 PM CDT 08/29/2024 10:54 PM CDT us Agustín Ruth MD LAB - CHEMISTRY ORDERABLES Final Result [address] [place] [address], [facility] [phone] * HEMOGLOBIN A1C (08/29/2024 10:46 PM CDT) [facility] Hemoglobin A1c 4.9 <=5.6 % 08/30/2024 10:00 AM CDT [facility] Estimated Average Glucose 94 mg/dL 08/30/2024 10:00 AM CDT [facility] Comment: HbA1c Interpretation: Normal : < 5.7% Pre-diabetes: 5.7-6.4% Diabetes: Equal to or greater than 6.5% Test results diagnostic of diabetes should be repeated for confirmation. Treatment target values recommended by ADA and other clinical organizations should be used to evaluate metabolic control in patients. Reference: [place] [employer], Standards of Care in Diabetes -2020 In patients 70 years and older consider HbA1c target range of 7.0-7.5% (Reference: Olivier Dickson et al. JAMDA. 2012) The Sebia assay for the measurement of HbA1c is a National Glycohemoglobin Standardization Program (NGSP) certified method. Blood BLOOD SPECIMEN / Unknown Venipuncture / Unknown 08/29/2024 10:46 PM CDT 08/29/2024 10:58 PM CDT us Agustín Ruth MD LAB - CHEMISTRY ORDERABLES Final Result [address] [address], [facility] [phone] * (ABNORMAL) HEPATITIS B SURFACE ANTIGEN CONFIRM RFLXED (08/29/2024 6:33 PM CDT) [facility] Hepatitis B Virus Surface Antigen Confirm Confirmed Reactive(A) Not Confirmed 08/30/2024 2:51 PM CDT [facility] Blood BLOOD SPECIMEN / Unknown Venipuncture / Unknown 08/29/2024 6:33 PM CDT 08/29/2024 6:48 PM CDT us Agustín Ruth MD LAB - CHEMISTRY ORDERABLES Final Result [address] [place] [address], [facility] [phone] * (ABNORMAL) HEPATITIS B SURFACE ANTIGEN W RFLX CONFIRMATION (08/29/2024 6:33 PM CDT) Hepatitis B Virus Surface Antigen See Note(A) Non-react reyna 08/29/2024 9:26 PM CDT [facility] Comment: Hepatitis B Surface Antigen confirmatory results to follow. This is a corrected result. Previous result was Reactive on 08/29/2024 at 2119 CDT Blood BLOOD SPECIMEN / Unknown Venipuncture / Unknown 08/29/2024 6:33 PM CDT 08/29/2024 6:48 PM CDT Agustín Ruth MD LAB - CHEMISTRY ORDERABLES Edite d Result - Final [address] [address], [facility] [phone] * CT Angio Chest Pulm Embolism (08/29/2024 2:57 PM CDT) Anatomical Region Laterality Modality Chest Computed Tomogra phy 08/29/2024 3:09 PM CDT Impressions 08/29/2024 4:57 PM CDT Impression: 1.No evidence of acute pulmonary embolism. 2.Large consolidation in the dependent portion of the right lower lung with associated debris seen within the right lower bronchus suggestive of aspiration. 3.Two solid nodules in the right apex are indeterminant and underlying malignancy cannot be excluded, per Fleischner criteria short-term CT follow-up in 3 months or PET/CT or tissue biopsy could be obtained. 4.Diffuse centrilobular and paraseptal emphysematous changes are present. > Dictated by Lizzy Yan MD (residential framing carpenter). I, Carlos Chávez MD have personally reviewed and interpreted this examination/study. > Interpreting Provider: Carlos Chávez MD on 08/29/2024 4:57 PM Narrative 08/29/2024 4:57 PM CDT PROCEDURE: CT ANGIO CHEST PULM EMBOLISM, DATE/TIME OF EXAM: 08/29/2024 2:58 PM, LOCATION [facility] INDICATION: D68.59: Hypercoagulable state (HCC) ADDITIONAL CLINICAL INFORMATION: Ordering Provider Reason For Exam: PE COMPARISON: None. TECHNIQUE: CT of the chest was performed following the uneventful administration of 75 mL of Isovue 370 intravenous contrast according to a pulmonary embolism protocol. Multiplanar reconstructions were created. Findings: *Endotracheal tube terminates in mid trachea. *Right IJ approach central line terminates in cavoatrial junction. *An enteric tube terminates in the stomach body. Study Quality This examination for the diagnosis of pulmonary embolism is adequate. Pulmonary Arteries: No evidence of acute pulmonary embolism. Thoracic Vasculature: Atherosclerotic calcification of the thoracic aorta is present. Lower Neck and Axillae: Normal. Lungs: Diffuse central and paracentral emphysematous changes. There is a large consolidation in the dependent portion of the right lower lung likely aspiration given the debris is within the right lower bronchus. There is an 1.6 cm nodule in the right apex best seen in series 9, image 165 additionally there is another subpleural nodule in the right apex measuring about 1.2 cm cyst seen in series 9, image 178 Heart and Pericardium: The cardiac chambers are normal in size. No pericardial fluid or thickening is present. The coronary arteries are atherosclerotic. Mediastinum and Trice: Right hilar prominent lymph node measuring 2.1 cm (series 7, image 218) Bones and Chest Wall: Bone windows demonstrate no suspicious lytic or blastic lesions. The visible osseous structures are intact. Degenerative changes are seen in the spine. Upper Abdomen: The visible portions of the upper abdominal organs are normal. Procedure Note Carlos Chávez MD - 08/29/2024 PROCEDURE: CT ANGIO CHEST PULM EMBOLISM, DATE/TIME OF EXAM: 52:58 PM, LOCATION [facility] INDICATION: D68.59: Hypercoagulable state (HCC) ADDITIONAL CLINICAL INFORMATION: Ordering Provider Reason For Exam: PE COMPARISON: None. TECHNIQUE: CT of the chest was performed following the uneventful administration of 75 mL of Isovue 370 intravenous contrast according toa pulmonary embolism protocol. Multiplanar reconstructions were created. Findings: *Endotracheal tube terminates in mid trachea. *Right IJ approach central line terminates in cavoatrial junction. *An enteric tube terminates in the stomach body. Study Quality This examination for the diagnosis of pulmonary embolism is adequate. Pulmonary Arteries: No evidence of acute pulmonary embolism. Thoracic Vasculature: Atherosclerotic calcification of the thoracic aorta is present. Lower Neck and Axillae: Normal. Lungs: Diffuse central and paracentral emphysematous changes. There is a large consolidation in the dependent portion of the rightlower lung likely aspiration given the debris is within the right lowerbronchus. There is an 1.6 cm nodule in the right apex best seen in series 9, image 165 additionally there is another subpleural nodule in the right apex measuring about 1.2 cm cyst seen in series 9, image 178 Heart and Pericardium: The cardiac chambers are normal in size. No pericardial fluid orthickening is present. The coronary arteries are atherosclerotic. Mediastinum and Trice: Right hilar prominent lymph node measuring 2.1 cm (series 7, image 218) Bones and Chest Wall: Bone windows demonstrate no suspicious lytic or blastic lesions. The visible osseous structures are intact. Degenerative changes are seen inthe spine. Upper Abdomen: The visible portions of the upper abdominal organs are normal. Impression: 1.No evidence of acute pulmonary embolism. 2.Large consolidation in the dependent portion of the right lower lungwith associated debris seen within the right lower bronchus suggestive of aspiration. 3.Two solid nodules in the right apex are indeterminant and underlying malignancy cannot be excluded, per Fleischner criteria short-term CT follow-up in 3 months or PET/CT or tissue biopsy could be obtained. 4.Diffuse centrilobular and paraseptal emphysematous changes arepresent. > Dictated by Lizzy Yan MD (residential framing carpenter). I, Carlos Chávez MD have personally reviewed and interpreted this examination/study. > Interpreting Provider: Carlos Chávez MD on 08/29/2024 4:57 PM Agustín Ruth MD CT ORDERABLES Final Result * (ABNORMAL) TSH REFLEX FREE T4 (08/29/2024 2:09 PM CDT) TSH 0.041(L) 0.350 - 4.940 uIU/mL 08/29/2024 3:14 PM CDT [facility] Blood BLOOD SPECIMEN / Unknown Venipuncture / Unknown 08/29/2024 2:09 PM CDT 08/29/2024 2:18 PM CDT us Agustín Ruth MD LAB - CHEMISTRY ORDERABLES Final Result [facility] [address] [place] [address], [place] [phone] * CULTURE BLOOD (08/29/2024 2:09 PM CDT) Only the most recent of2 resultswithin the time period is included. Pathologist [facility] Culture No growth day 5 YUE 09/03/2024 7:30 PM CDT [facility] MICROBIOLOGY Blood PERIPHERAL BLOOD / Unknown Venipuncture / Unknown 08/29/2024 2:09 PM CDT 08/29/2024 2:15 PM CDT us Agustín Ruth MD LAB - MICROBIOLOGY ORDERABLES Fi nal Result Performing Organization Address City/[facility]/ZIP Co de Phone Number [facility] MICROBIOLOGY [address] [place] [address], [facility] [phone] * FOLATE (08/29/2024 2:09 PM CDT) Folate 17.5 7.0 - 31.4 ng/mL 08/29/2024 5:54 PM CDT [facility] Blood BLOOD SPECIMEN / Unknown Venipuncture / Unknown 08/29/2024 2:09 PM CDT 08/29/2024 2:18 PM CDT us Agustín Ruth MD LAB - CHEMISTRY ORDERABLES Final Result Performing Organization Address City/[facility]/ZIP Co de Phone Number [facility] [address] [place] [address], [place] [phone] * VITAMIN B12 (08/29/2024 2:09 PM CDT) Vitamin B12 807 213 - 816 pg/mL 08/29/2024 3:14 PM CDT [facility] Blood BLOOD SPECIMEN / Unknown Venipuncture / Unknown 08/29/2024 2:09 PM CDT 08/29/2024 2:18 PM CDT us Agustín Ruth MD LAB - CHEMISTRY ORDERABLES Final Result Performing Organization Address [facility]/ZIP Co de Phone Number [address] [address], [place] [phone] * AMMONIA (08/29/2024 2:09 PM CDT) Ammonia 29 <=72 umol/L 08/29/2024 2:36 PM CDT [facility] Blood BLOOD SPECIMEN / Unknown Venipuncture / Unknown 08/29/2024 2:09 PM CDT 08/29/2024 2:18 PM CDT us Agustín Ruth MD LAB - CHEMISTRY ORDERABLES Final Result Performing Organization Address [facility]/ZIP Co de Phone Number [address] [address], [place] [phone] * T4 FREE (08/29/2024 2:09 PM CDT) [facility] T4 Free 0.8 0.7 - 1.5 ng/dL 08/29/2024 3:49 PM CDT [facility] Blood BLOOD SPECIMEN / Unknown Venipuncture / Unknown 08/29/2024 2:09 PM CDT 08/29/2024 2:18 PM CDT us Agustín Ruth MD LAB - CHEMISTRY ORDERABLES Final Result Performing Organization Address [facility]/ZIP Co de Phone Number [address] [address], [place] [phone] * PROSTATE SPECIFIC ANTIGEN SCREEN (06/24/2022 12:29 PM RANGE MANAGER) [facility] PSA 3.11 0.00 - 4.00 ng/mL [facility] INSURANCE BILL Comment: PSA values will vary depending on testing procedure used. R esults are not comparable across different methods. PSA values obtained by [facility] Blood BLOOD SPECIMEN / Unknown 06/24/2022 12:29 PM RANGE MANAGER 06/24/2022 Narrative Resulting Agency Comment Lab Testing performed at: [address] [phone] Josh Parham MD LAB - CHEMISTRY ORDERABLES Trina l Result Performing Organization Address City/[facility]/ZIP Co de Phone Number [facility] INSURANCE BILL [address] [place] [address] * LIPID PROFILE (06/24/2022 12:29 PM RANGE MANAGER) Cholesterol 199 <200 mg/dL [facility] INSURANCE BILL Triglycerides 80 <150 mg/dL [facility] INSURANCE BILL HDL Cholesterol 54 >40 mg/dL [facility] INSURANCE BILL VLDL Calculated 16 <=30 mg/dL [facility] INSURANCE BILL LDL Calculated 129 <130 mg/dL [facility] INSURANCE BILL Comment:[facility] Blood BLOOD SPECIMEN / Unknown 06/24/2022 12:29 PM RANGE MANAGER 06/24/2022 Narrative Resulting Agency Comment Lab Testing performed at: [address] [phone] Josh Parham MD LAB - CHEMISTRY ORDERABLES Trina l Result Performing Organization Address City/[facility] de Phone Number [facility] INSURANCE BILL [address] [place] [address] from Last 3 Months or Most Recently Relevant to Health Maintenance Insurance MEDICAID [place] Member Subscriber Plan / Payer (Ef fective 2023-Present) Name:Thompson Salcedo Member ID:Not on file Relation to Subscriber:Self Name:Thompson Salcedo Payer ID:Not on file Group ID:Not on file Type:Medicaid [place] Address: [place] [id number] [facility] MANAGED MEDICARE ADV [facility] Advance Directives * Full Code (Latest Code Status on File) Date Activated Date Inactivated Comments 08/28/2024 8:37 PM 09/21/2024 4:25 PM Care Teams Molecular Physicist Relationship Specialty Start Date End Date Josh Parham MD [address] [phone] PCP - Attributed-[facility] [place] 08/22/24 Poly Rebollar APNP-PUBLICITY AGENT [address] [facility] [address] [place] [address] PCP - General Internal Medicine 09/26/24 [facility], [facility] Kidney Care Management 12/23/22
--- OUTSIDE RECORDS SUMMARY | 2024-09-27 21:14 | XMS_ITS | Encounter Summary ---
Author Organization [facility] Address [address] [place] [address] Care Team Providers Care Director Of Event Marketing Name Role Phone Josh Parham MD Primary Care Provider Josh Parham MD Unavailable [phone] [facility] [place], [facility] Kidney Unavailable Josh Parham MD Unavailable [phone] Idris Sanchez Md, MD Primary Care Provider Josh Parham MD Unavailable [phone] Isabela Zacarias RN Unavailable Poly Rebolalr-OG Primary Care Provider Unavailable Reason for Visit * Reason Onset Date Comments MEDICATION REFILL 03/24/2024 Medication Issue 03/24/2024 Update 03/24/2024 Change Pharmacy & Add Med Not on List Encounter Details Date Type Department Care Team (Late st Contact Info) Description 03/24/[address] [facility] Medical [facility] - Internal Medicine [facility] [address] Josh Parham MD [address] [phone] MEDICATION REFILL; Medication Issue; Update (Change Pharmacy [...] Sex Assigned at Male 07/03/2021 7:30 AM GAS APPLIANCE ADJUSTER Legal Sex Male 6:40 AM GAS APPLIANCE ADJUSTER Gender Identity Male 07/03/2021 7:30 AM GAS APPLIANCE ADJUSTER Sexual Orientation Not on file Occupation Industry Job Start Date Job End Date retired Not on file Not on file Not on file documented as of this encounter Miscellaneous Notes * Telephone Encounter - Breanna Ceja - 03/27/2024 12:02 PM GAS APPLIANCE ADJUSTER Patient is wanting have all medication including [...] the other 3 to be sent to [facility] in [facility] on [facility], included in this encounter and not the [facility], send GENEVIEVE due to he is out of [facility]. Requested Prescriptions Pending Prescriptions Disp Refills [...] fax) Person calling for the refill: Patient girlfrienolivia Garcia Last office visit 10/07/23 Next Appointment scheduled: 03/30/2024 Last Refill for this medication Albuterol nebulizer Albuterol inhaler Flexeril, sign GENEVIEVE patient is out All 3 last filled 03/24/24 patient has not received need script changed to different pharmacy Does patient have any new allergies since last office visit? No [facility] the [facility] If this is a controlled substance was the Last 4 of SSN verified? NOT APPLICABLE Did you notify caller it would take 24-48 hours for the refill to be completed? YES CALL DEANNE patient girlfriend/ caregiver with an update once medication has been updated and sent to correct pharmacy APPLIANCE ADJUSTER * Telephone Encounter - Nory Zavala - [...] scheduled: 03/30/2024 Last Refill for this medication Flexeril-10/18/24, Triamcinolone 01/27/24 Does patient have any new [...] Description 10/24/2024 3:00 PM CDT Office Visit [facility] - Dermatology [address] [place] [phone] Stalin Hand MD [address] [place] [address] [place] [address] 12/28/2024 1:00 PM CDT Office Visit [facility] - Dermatology [address] [place] [phone] Aleksandr Ngo MD [address] [place], [place] [address]T OF DERMATOLOGY [address] [place] [phone] documented as of this encounter Visit Diagnoses Diagnosis Psoriasis Other psoriasis Chronic obstructive pulmonary disease, unspecified COPD type (HCC) documented in this encounter Additional Health Concerns Infection Onset Date Last Indicated Resolved Time COVID-19 Under Investigation 09/04/2024 09/04/2024 09/04/2024 9:09 PM CDT documented as of this encounter Care Teams Director Of Event Marketing Relationship Specialty Start Date End Date Josh Parham MD PCP - General Internal Medicine 05/27/11 08/28/24 Josh Parham MD [address] [place] [phone] PCP - Attributed-[facility] 10/22/22 Josh Parham MD [address] [facility] [address] [place] [address] PCP - Strive MCO 03/24/24 09/08/24 Daniel Smith, MD Idris [address] [facility] [address] [place] [address] PCP - General Family Medicine 08/29/24 09/25/24 Josh Parham MD [address] [facility] [address] [place] [address] PCP - Attributed-[facility] 08/22/24 Poly Rebollar, EMMA-PROOF COIN COLLECTOR [address] [place] [address] PCP - General Internal Medicine 09/26/24 Care, [facility] Kidney Care Management 12/23/22 Isabela Zacarias, RN [address] [address] Computer Security ManagerOral And Maxillofacial Surgery Resident 09/22/24 09/26/24 documented as of this encounter
--- OUTSIDE RECORDS SUMMARY | 2024-09-27 21:14 | XMS_ITS | Encounter Summary ---
Author Organization [facility] Healthcare Address [address] [place] [address] Care Team Providers Care Biometrician Name Role Phone Matteo [place] MD Unavailable [phone] Gerson Keith MD Unavailable [phone] Cassie Márquez MD Unavailable Beatriz TO MD, [place] Unavailable [phone] Beatriz TO MD, [place] Unavailable [phone] David Gorman MD Unavailable [phone] Blayne Sepulveda MD Unavailable Gerson Forrester DO Unavailable [phone] Idris Sanchez MD Primary Care Provi simba Teddy Hull MD Unavailable [phone] No, Physician Primary Care Provider [phone] Encounter Details Date Type Department Care Team (Late st Contact Info) Description 08/01/2024 Results Follow-Up [facility] Medical Group [facility]ient [facility] at [address] [phone] Laina Yancey PA [address] [place] [address] [address] [place] [address] Social History Tobacco Use Types Packs/Day Years Used Date Smoking Tobacco: Some Days Cigarettes 0.3 10 Passive Smoke Exposure: Never Smokeless Tobacco: Never Comments:Last cigarette 04/24 0 Alcohol Use Standard Drinks/Week Comments Not Currently 0 (1 standard drink = 0.6 oz pur e alcohol) [facility] Utilities Answer Date Recorded In the past 12 months has [employer], gas, oil, or water tagga threatened to shut off services in your [...] week 04/11/2024 How often do you attend [facility] or synagogue services? Never 04/11/2024 Do you belong to any clubs o r organizations such as baptism groups, unions, fraternal or athletic groups, or [...] any time in the past 12 m [facility], were you homeless or living [...] on file Legal Sex Male 11:35 AM WOOL MIXER Gender Identity Not on file Sexual Orientation Not on file documented as of this encounter Plan of Treatment Upcoming Encounters Date Type Department Care Team (Latest Contact Info) Description 10/05/2024 7:30 AM CDT Hospital Encounter [facility] [place] [address] [place] [phone] Seth [place] IV, MD [address] [place] [phone] 10/05/2024 7:30 AM CDT - 10/05/2024 9:00 AM CDT Surgery [facility] [place] [address] [place] [phone] Seth [place] IV, MD [address] [place] [phone] RECTAL EXAM UNDER ANESTHESIA WITH EXCISION ANAL MASS Scheduled Procedures Name Priority Associated Diagnoses Date/Ti me HEMORRHOIDECTOMY ANAL CANCER 10/05/2024 7:30 AM CDT COLONOSCOPY ANAL CANCER 10/05/2024 7:30 AM CDT documented as of this encounter Visit Diagnoses Not on filedocumented in this encounter Additional Health Concerns Infection Onset Date Last Indicated Resolved Time RSV, droplet 07/28/2024 07/28/2024 08/04/2024 3:05 AM CDT Meningitis, bacterial, dropl et Comment:Per Dr Daigle, patient may be removed from isolation 08/24/2024 08/24/2024 08/28/2024 11:49 AM CDT documented as of this encounter Care Teams Biometrician Relationship Specialty Start Date End Date Idris Sanchez MD [address] [address] PCP - General Family Practice 05/18/24 09/23/24 No, Physician PCP - General 09/24/24 Matteo [place] MD [address] [facility], [address] [address] Medical Oncologist/Vocational Ed Instructor Medical Oncology 03/31/23 Gerson [place] MD [address] [facility], [address] [address] Consulting Physician Nephrology 05/07/23 Cassie Márquez MD [address] [facility] [place] [address] Consulting Physician Family Medicine 06/25/23 Seth [place] IV, MD [address] [place] [phone] Consulting Physician General Surgery 10/21/23 Seth [place] IV, MD [address] [place] [address] [phone] Consulting Physician General Surgery 10/21/23 David Gorman MD [address] [place] [address] [phone] Radiation Oncologist Radiation Oncology 10/21/23 Blayne Sepulveda MD [address] [place] [phone] Consulting Physician General Surgery 03/10/24 Gerson Forrester DO [address] [place] [address] [phone] Consulting Physician General Surgery 03/14/24 Teddy [place] MD [address] [phone] Consulting Physician Cardiology 09/22/24 documented as of this encounter
--- OUTSIDE RECORDS SUMMARY | 2024-09-27 21:14 | XMS_ITS | Encounter Summary ---
Author Organization [facility] Address [address] [facility] [place] [address] Care Team Providers Care Senior Mechanical Project Manager Name Role Phone Josh Parham MD Primary Care Provider Josh Parham MD Unavailable [phone] [facility] Emergency Department, [facility] Kidney Unavailable Charu Carter TALLOW PUMPER-CROP ROLLER Unavailable Josh Parham MD Unavailable [phone] Idris Sanchez Md, MD Primary Care Provider Josh Parham MD Unavailable [phone] Isabela Zacarias RN Unavailable Poly Rebollar APNP-CROP ROLLER Primary Care Provider Unavailable Reason for Visit * Reason Onset Date Comments MEDICATION REFILL 02/28/2024 Encounter Details Date Type Department Care Team (Late st Contact Info) Description 02/28/2024 Refill [facility] Medical [facility] - Internal Medicine [address] [facility] [address] [place] [address] Josh Parham MD [address] [place] [phone] MEDICATION REFILL Social History Tobacco Use Types [...] Sex Assigned at Male 07/03/2021 7:30 AM CLINICAL RESOURCE MANAGER Legal Sex Male 6:40 AM CLINICAL RESOURCE MANAGER Gender Identity Male 07/03/2021 7:30 AM CLINICAL RESOURCE MANAGER Sexual Orientation Not on file Occupation Industry Job Start Date Job End Date retired Not on file Not on file Not on file documented as of this encounter Plan of Treatment Upcoming Encounters Date Type Department Care Team (Late st Contact Info) Description 10/24/2024 3:00 PM CDT Office Visit [facility] - Dermatology [address] [place] [phone] Stalin Hand MD [address] [place] [address] [place] [address] 12/28/2024 1:00 PM CDT Office Visit [facility] - Dermatology [address] [place] [phone] Aleksandr Ngo MD [address] [place], [place] [address]T OF DERMATOLOGY [address] [place] [phone] documented as of this encounter Visit Diagnoses Not on filedocumented in this encounter Additional Health Concerns Infection Onset Date Last Indicated Resolved Time COVID-19 Under Investigation 09/04/2024 09/04/2024 09/04/2024 9:09 PM CDT documented as of this encounter Care Teams Senior Mechanical Project Manager Relationship Specialty Start Date End Date Josh Parham MD PCP - General Internal Medicine 05/27/11 08/28/24 Josh Parham MD [address] [facility] [address] [place] [phone] PCP - Attributed-[facility] 10/22/22 Charu Carter APRN-CROP ROLLER [address] [facility] [place] [phone] PCP - Strive [facility] 11/22/23 03/23/24 Josh Parham MD [address] [facility] [address] [place] [address] PCP - Strive O 03/24/24 09/08/24 Daniel Smith, MD Idris [address] [facility] [address] [place] [address] PCP - General Family Medicine 08/29/24 09/25/24 Josh Parham MD [address] [facility] [address] [place] [address] PCP - Attributed-[facility] 08/22/24 Poly Rebollar, EMMA-CROP ROLLER [address] [place] [address] PCP - General Internal Medicine 09/26/24 Care, [facility] Kidney Care Management 12/23/22 Isabela Zacarias, RN [address] [facility] 301 [place] [address] Bearing Ring AssemblerAsphalt Blender 09/22/24 09/26/24 documented as of this encounter
--- OUTSIDE RECORDS SUMMARY | 2024-09-27 21:14 | XMS_ITS | Encounter Summary ---
Author Organization [facility] Healthcare Address [address] [place] [address] Care Team Providers Care Superintendent Name Role Phone Matteo Brooks MD Unavailable [phone] Gerson Keith MD Unavailable Cassie Márquez MD Unavailable Beatriz TO MD, Lyman Lansing Unavailable [phone] Beatriz TO MD, Lyman Lansing Unavailable [phone] Daivd Gorman MD Unavailable [phone] Blayne Sepulveda MD Unavailable Gerson Forrester DO Unavailable [phone] Idris Sanchez MD Primary Care Provi simba Teddy Hull MD Unavailable [phone] No, Physician Primary Care Provider [phone] Encounter Details Date Type Department Care Team (Late st Contact Info) Description 07/29/2024 Results Follow-Up [facility] Medical Group Convenient Care at [address] [phone] Merrick Aguirre NP [address] [place] [address] [address] [place] [address] Social History Tobacco Use Types Packs/Day Years Used Date Smoking Tobacco: Some Days Cigarettes 0.3 10 Passive Smoke Exposure: Never Smokeless Tobacco: Never Comments:Last cigarette 04/24 0 Alcohol Use Standard Drinks/Week Comments Not Currently 0 (1 standard drink = 0.6 oz pur e alcohol) [facility] Utilities Answer Date Recorded In the past 12 months has [employer], gas, oil, or water [employer] threatened to shut off services in your [...] week 04/11/2024 How often do you attend [facility] or islam services? Never 04/11/2024 Do you belong to [...] any time in the past 12 m [facility], were you homeless or living [...] on file Legal Sex Male 11:35 AM SENIOR LINUX UNIX ENGINEER Gender Identity Not on file Sexual Orientation Not on file documented as of this encounter Miscellaneous Notes * Result Encounter Note - Nancy Elizabeth LPN - 07/29/2024 10:26 AM SENIOR LINUX UNIX ENGINEER Spoke with Radha fernandez (on HIPAA/pts smocking machine operator) and informed her of pts results and follow up instructions and she verbalized understanding. Discussed xray hours and availability and other locations for pt to get xray. OR LINUX UNIX ENGINEER documented in this encounter Plan of Treatment Upcoming Encounters Date Type Department Care Team (Latest Contact Info) Description 10/05/2024 7:30 AM CDT Hospital Encounter [facility] OR [address] [place] [phone] Seth Henderson IV, MD [address] [place] [address] 10/05/2024 7:30 AM CDT - 10/05/2024 9:00 AM CDT Surgery [facility] OR [address] [place] [phone] Seth Henderson IV, MD [address] [place] [address] [phone] RECTAL EXAM UNDER ANESTHESIA WITH EXCISION ANAL MASS Scheduled Procedures Name Priority Associated Diagnoses Date/Ti me HEMORRHOIDECTOMY ANAL CANCER 10/05/2024 7:30 AM CDT COLONOSCOPY ANAL CANCER 10/05/2024 7:30 AM CDT documented as of this encounter Visit Diagnoses Not on filedocumented in this encounter Additional Health Concerns Infection Onset Date Last Indicated Resolved Time COVID: Suspected 07/28/2024 07/28/2024 07/29/2024 12:32 AM SENIOR LINUX UNIX ENGINEER RSV, droplet 07/28/2024 07/28/2024 08/04/2024 3:05 AM CDT Meningitis, bacterial, dropl et Comment:Per Dr Daigle, patient may be removed from isolation 08/24/2024 08/24/2024 08/28/2024 11:49 AM CDT documented as of this encounter Care Teams Superintendent Relationship Specialty Start Date End Date Idris Sanchez MD [address] [facility] [address] [place] [address] PCP - General Family Practice 05/18/24 09/23/24 No, Physician PCP - General 09/24/24 Matteo Brooks MD [address] [facility], [address] [address] Medical Oncologist/Ticket Taker Medical Oncology 03/31/23 Gerson Keith MD [address] [facility], [address] [address] Consulting Physician Nephrology 05/07/23 Cassie Márquez MD [address] [place] [address] Consulting Physician Family Medicine 06/25/23 Seth Henderson IV, MD [address] [place] [address] [phone] Consulting Physician General Surgery 10/21/23 Seth Henderson IV, MD [address] [place] [phone] Consulting Physician General Surgery 10/21/23 David Gorman MD [address] [place] [phone] Radiation Oncologist Radiation Oncology 10/21/23 Blayne Sepulveda MD [address] [place] [address] [phone] Consulting Physician General Surgery 03/10/24 Gerson Forrester DO [address] [place] [phone] Consulting Physician General Surgery 03/14/24 Teddy Hull MD [address] [facility] [address] [place] [address] Consulting Physician Cardiology 09/22/24 documented as of this encounter
--- OUTSIDE RECORDS SUMMARY | 2024-09-27 21:14 | XMS_ITS | Encounter Summary ---
Author Organization [facility] Address [address] [facility] [place] [address] Care Team Providers Care Basic Acoustic Analyst Name Role Phone Josh Parham MD Primary Care Provider Josh Parham MD Unavailable [phone] [facility], [facility] Kidney Unavailable Charu Carter PROFILE GRINDER-PARKING ENFORCEMENT TECHNICIAN Unavailable Josh Parham MD Unavailable [phone] Idris Sanchez Md, MD Primary Care Provider Josh Parham MD Unavailable [phone] Isabela Zacarias RN Unavailable [phone] Poly Rebollar APNP-PARKING ENFORCEMENT TECHNICIAN Primary Care Provider Unavailable Reason for Visit * Reason Onset Date Comments MEDICATION REFILL 02/07/2024 Encounter Details Date Type Department Care Team (Late st Contact Info) Description 02/07/[address] [facility] Medical [facility] - Internal Medicine [address] [facility] [address] [place] [phone] Ashwini Walter MD [address] [place] [phone] MEDICATION REFILL Social History Tobacco Use Types [...] Sex Assigned at Male 07/03/2021 7:30 AM SUPERVISOR FEED MILL Legal Sex Male 6:40 AM SUPERVISOR FEED MILL Gender Identity Male 07/03/2021 7:30 AM SUPERVISOR FEED MILL Sexual Orientation Not on file Occupation Industry [...] Description 10/24/2024 3:00 PM CDT Office Visit [facility] - Dermatology [address] [place] [address], [place] [address] Stalin Hand MD [address] [place] [address] [address] [place] [address] 12/28/2024 1:00 PM CDT Office Visit [facility] - Dermatology [address] [facility], [place] [phone] Aleksandr Ngo MD [facility] [facility] DEPT OF DERMATOLOGY [address] [place] [phone] documented as of this encounter Visit Diagnoses Not on filedocumented in this encounter Additional Health Concerns Infection Onset Date Last Indicated Resolved Time COVID-19 Under Investigation 09/04/2024 09/04/2024 09/04/2024 9:09 PM CDT documented as of this encounter Care Teams Basic Acoustic Analyst Relationship Specialty Start Date End Date Josh Parham MD PCP - General Internal Medicine 05/27/11 08/28/24 Josh Parham MD [address] [facility] [address] [place] [address] PCP - Attributed-[facility] 10/22/22 Charu Carter, PROFILE GRINDER-PARKING ENFORCEMENT TECHNICIAN [address] [place] [phone] PCP - Strive O 11/22/23 03/23/24 Josh Parham MD [address] [facility] [address] [place] [address] PCP - Strive MCO 03/24/24 09/08/24 Daniel Smith, MD Idris [address] [facility] [address] [place] [address] PCP - General Family Medicine 08/29/24 09/25/24 Josh Parham MD [address] [facility] [address] [place] [address] PCP - Attributed-[facility] 08/22/24 Poly Rebollar, EMMA-PARKING ENFORCEMENT TECHNICIAN [address] [facility] [address] [place] [address] PCP - General Internal Medicine 09/26/24 [facility], [facility] Kidney Care Management 12/23/22 Isabela Zacarias, RN [address] [facility] [address] [place] [address] Stewardesses TeacherRenovator Machine Operator 09/22/24 09/26/24 documented as of this encounter
--- OUTSIDE RECORDS SUMMARY | 2024-09-27 21:15 | XMS_ITS | Clinical Summary ---
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 CDT CRYPTOCOCCAL ANTIGEN, SERUM Routine 08/23/2024 8:18 PM CDT CTA CHEST ABDOMEN PELVIS ED Urgent/IP Urgent 08/23/2024 6:39 PM CDT INFECTION PREVENTION MRSA ONLY (STAPHYLOCOCCUS AUREUS) PCR Routine 08/23/2024 5:12 PM CDT PNEUMONIA PCR WITH AEROBIC CULTURE AND GRAM STAIN Routine 08/23/2024 5:12 PM CDT BLOOD CULTURE STAT 08/23/2024 4:19 PM CDT POC BLOOD GAS AND CHEMISTRIES, ARTERIAL Routine 08/23/2024 4:13 PM CDT EGFR STAT 08/23/2024 4:10 PM CDT DIFFERENTIAL AUTO STAT 08/23/2024 4:1 0 PM CDT ANTIBODY SCREEN STAT 08/23/2024 4:10 PM CDT ABO/RH STAT 08/23/2024 4:10 PM CDT T-HELPER CELLS (CD4) COUNT Routine 08/23/2024 4:10 PM CDT CBC WITH AUTO DIFFERENTIAL STAT 08/23/2024 4:10 PM CDT LACTATE STAT 08/23/2024 4:10 PM CDT CALCIUM, IONIZED STAT 08/23/2024 4:10 PM CDT PHOSPHORUS STAT 08/23/2024 4:10 PM CDT MAGNESIUM STAT 08/23/2024 4:10 PM CDT COMPREHENSIVE METABOLIC PANEL STAT 08/23/2024 4:10 PM CDT TYPE AND SCREEN STAT 08/23/2024 4:10 PM CDT BLOOD CULTURE STAT 08/23/2024 4:10 PM CDT XR ABDOMEN AP 1 VIEW ED Urgent/IP Urgent 08/23/2024 4:08 PM CDT XR CHEST 1 VIEW ED Urgent/IP Urgent 08/23/2024 4:08 PM CDT CRITICAL CARE Routine 08/23/2024 3:[address] CHEST ABDOMEN PELVIS W CONTRAST Schedule Routine, Read Routine (OP Routine) 08/17/2024 3:10 PM CDT Squamous cell carcinoma of anal margin XR CHEST PA LATERAL 2 VIEWS Schedule GENEVIEVE, Read GENEVIEVE (Appt Today, Awaiting Results) 08/01/2024 9:41 AM CDT Elevated blood pressure reading in office with diagnosis of hypertension COPD with acute exacerbation (HCC) INFLUENZA A/B, RSV, AND COVID-19 PCR Routine 07/28/2024 6:01 PM IN [employer]ORDINATOR Elevated blood pressure reading in office with diagnosis of hypertension TB TEST, QUANTIFERON GOLD Routine 01/21/2024 10:15 [...] Recently Relevant to Health Maintenance Results * POCT glucose (08/28/2024 3:42 PM CDT) Glucose, POC 98 70 - 199 mg/dL Blood 08/28/2024 3:42 PM CDT 08/28/2024 3:42 PM CDT Breanna Urbano DO LAB POCT ORDERABLES - DEV ICE Final Result [facility] [id number] [facility] Department [place] [address] * EEG (08/28/2024 2:45 PM CDT) Anatomical Region Laterality Modality Other Narrative 08/28/2024 2:58 PM CDT Alcides Jacobs MD 08/28/2024 3:00 PM Reason for exam: Altered mental status, shaking episodes Technical: This is a digitally recorded electroencephalogram. It was just over 20 minutes long. The international 10-20 electrode placement system is used for scalp electrode placement. Eighteen channels of scalp EEG are recorded. One channel was used for EOG. Another channel was used for ECG. The data are stored digitally and reviewed in reformatted montages for optimal display. Background: Background consists primarily of triphasic waves seen bilaterally. These are occurring throughout most of the recording at a rate of about 1-1.5 hertz. Description: No focal slowing was seen. No seizure like activity was observed during this recording. Patient remained unresponsive throughout the recording. Hyperventilation was not performed due to patient's clinical condition. Photic stimulation was performed without any additional abnormalities. Impression: Abnormal EEG. Generalized slowing to this degree and triphasics, suggests severe diffuse cerebral dysfunction, prominence of triphasics could suggest a potential metabolic or toxic etiology. No focal slowing no seizure like activity was observed. Correlation with clinical findings is needed. Chelo White NP NEUROLOGY ORDERABLES Final Res ult * Critical Care (08/28/2024 12:36 PM CDT) Narrative Breanna Urbanon, DO - 08/28/2024 12:36 PM CDT Sundeep Breanna Euceda DO 08/29/2024 5:22 AM Critical Care Performed by: Chelo White NP Authorized by: Chelo White NP CRITICAL CARE: Team: Tiffanie Shift: AM Level of Billing: Critical Care My time spent with this patient was 90 minutes: Critical Provider Statement: I have seen and examined the patient on this day of service. I have reviewed and confirmed the history, physical exam, laboratory and radiologic data as documented in the signed ICU note. I have reviewed and discussed my treatment plan with the ICU team and other medical/service loss control consultant staff, making frequent assessments and decisions regarding this patient's complex medical care. Critical Care time was exclusive of time spent performing separately billed procedures, treating other patients, and teaching. This time was in addition to and separate from critical care provided by other practitioners in my group on this day of service. Critical Care was necessary to treat or prevent imminent or life-threatening deterioration of the following conditions: I spent time reviewing and interpreting data from bedside monitors, laboratory results, and imaging, I spent time discussing the management of this critically ill patient with consultants and the medical staff and I spent time documenting in the medical record us Chelo White NP IN CLINIC/BEDSIDE ORDERABLES F inal Result * ECG 12 lead (08/28/2024 11:02 AM CDT) Ventricular Rate EKG/Min 83 BPM [facility] Atrial Rate 84 BPM [facility] IN-Interval (MSEC) 214 ms [facility] QRS-Interval (MSEC) 88 ms [facility] QT-Interval (MSEC) 390 ms [facility] QTc 458 ms [facility] P Hudgins 73 degrees [facility] R Hudgins 85 degrees [facility] T Hudgins 53 degrees [facility] Diagnosis Sinus rhythm with 1st degree A-V block Right axis deviation Low voltage QRS When compared with ECG of 27-AUG-2024 01:22, QT has shortened Confirmed by SULTAN COSME M.D. ([id number]) on 08/28/2024 2:44:31 PM [facility] 08/28/2024 11:0 2 AM CDT 08/28/2024 2:44 PM CDT us Chelo White [employer] ECG ORDERABLES Final Result [facility] * TRANSTHORACIC ECHO (TTE) COMPLETE W DOPPLER/CF WO CONTRAST (08/28/2024 8:46 AM CDT) Anatomical Region Laterality Modality Ultrasound 08/28/2024 8:17 AM CDT Narrative 08/28/2024 11:59 AM CDT Transthoracic Echocardiographic Report Patient Name: LIANNA TIRADO : 1955 (69y 1m) Gender: M Study Date: 08/28/2024 08:17:00 AM Ht(Inch): 74 Wt(Lb): 180.01 BSA: 2.06 Senior Firewall Engineer: JANES Gonzalez Location: [id number] Order Provider: CHELO SHELDON Heart Rate: 85 BMI: 23.11 BP: 166 / 104 Ref Provider: CHELO SHELDON PROCEDURES: Echocardiographic Report: ([id number]) Transthoracic complete echo, 2D, spectral and tissue Doppler, color flow Doppler, M-mode. INDICATIONS: Respiratory Failure. FINDINGS: Left Ventricle: Normal left ventricular cavity size. Mild concentric left ventricular hypertrophy. Normal left ventricular systolic function. The Ejection Fraction (Hernandes's) is measured at 57 %. Diastolic Function E to E' ratio is 8-15 which is in the indeterminate zone. Right Ventricle: Normal right ventricular size. Normal right ventricular systolic function. Left Atrium: The left atrium is normal in size. Right Atrium: The right atrium is normal in size. Atrial Septum: No shunt by color Doppler. Mitral Valve: Mild mitral annular calcification. No mitral regurgitation seen. No mitral valve stenosis. The mean transmitral gradient is: 5 mmHg. MV Structure Abnormalities: Mitral valve leaflets appear mildly thickened. Aortic Valve: Difficult to detemine number of Aortic Valve leaflets. No aortic regurgitation seen. No aortic valve stenosis. The mean transaortic gradient is 8 mmHg. Probable calcific aortic valve nodule versus healed vegetation as described previously on echo 01/26/2024 and 01/21/2024. Tricuspid Valve: The tricuspid valve demonstrates normal leaflet structure. There is trace to mild tricuspid valve regurgitation. The estimated pulmonary artery systolic pressure is 58 mmHg. Estimated pulmonary artery systolic pressure is consistent with moderate pulmonary hypertension (45-60mmHg). No tricuspid valve stenosis. Pulmonic Valve: Pulmonic Valve not well visualized due to poor echo windows. There is trace pulmonic regurgitation. No stenosis present. Pericardium: No pericardial effusion noted. Aorta: Normal aortic root. The aortic Sinus is normal in size. IVC: IVC Collapses normally with inspiration. IVC is dilated. CONCLUSIONS: 1. Normal left ventricular cavity size. Mild concentric left ventricular hypertrophy. Normal left ventricular systolic function. The Ejection Fraction (Hernandes's) is measured at 57 %. 2. Probable calcific aortic valve nodule versus healed vegetation as described previously on echo 01/26/2024 and 01/21/2024. 3. The estimated pulmonary artery systolic pressure is 58 mmHg. Estimated pulmonary artery systolic pressure is consistent with moderate pulmonary hypertension (45-60mmHg). 4. IVC Collapses normally with inspiration. IVC is dilated. 5. Compared with echo 01/21/2024, moderate pulmonary hypertension is now noted. MEASUREMENTS: 2D/MM Value Range Doppler Value LVIDd 2D 4.56 cm [ 3.50 - 5.70 ] AV Peak Abdelrahman 1.84 m/s LVIDs 2D 3.08 cm [ 3.10 - 4.60 ] AV Peak PG 13.54 mmHg IVSd 2D 1.22 cm [ 0.60 - 1.20 ] AV Mean PG 8.00 mmHg LVPWd 2D 1.16 cm [ 0.60 - 1.10 ] AV VTI 31.10 cm LV Thickness Ratio 1.05 LVOT Peak Abdelrahman 1.17 m/s LV Mass 2D 202.85 g LVOT Peak PG 5.48 mmHg LV Mass Index 2D 98.47 g/m2 LVOT Mean PG 3.00 mmHg RWT 0.51 LVOT VTI 19.70 cm EDV Mod BP 66.20 ml [ 62.00 - 150.00 ] LVOT Diam 2.40 cm LV EDV Index 32.14 ml/m2 JOSEPH VTI 2.86 cm2 ESV Mod BP 28.80 ml [ 21.00 - 61.00 ] JOSEPH Vmax 2.88 cm2 EF Mod BP 57 % [ 52 - 72 ] LVOT/AV VTI 0.63 - Dimensionless index (DVI) LA Dimension 2D 2.60 cm [ 1.90 - 4.00 ] MV E Peak Abdelrahman 0.88 m/s LA Length 2C 5.60 cm MV A Peak Abdelrahman 1.51 m/s LA Length 4C 5.25 cm MV E/A 0.60 ratio LA Volume BP 14.00 ml MV Peak Abdelrahman 1.59 m/s LA Volume Index 6.80 ml/m2 [ 16.00 - 34.00 ] MV Peak PG 10.11 mmHg RV Base Dimen 2D 4.0 cm [ 2.5 - 4.2 ] MV Mean PG 5.00 mmHg TAPSE 2.63 cm [ 1.71 - 5.00 ] MV VTI 31.70 cm RA Volume 61.50 ml MV Decel Time 185.00 msec RA Volume Index 29.85 ml/m2 Med E` Abdelrahman 8.92 cm/sec IVC Diam 2.41 cm Lat E` Abdelrahman 8.92 cm/sec AoR Diam 2D 3.90 cm [ 2.00 - 3.70 ] Average E/E` 9.87 Ao Root Index 1.89 cm/m2 [ 1.00 - 2.00 ] RV S` 17.70 cm/sec Asc Ao Diam 2D 4.10 cm TR Peak Abdelrahman 3.46 m/s Asc Ao Index 1.99 cm/m2 TR Peak PG 47.9 mmHg PV Peak Abdelrahman 1.15 m/s PV Peak PG 5.29 mmHg PV Mean PG 3.00 mmHg RVOT VTI 16.30 - ATTESTATION: I have reviewed and interpreted the pertinent images and measurements of this study. I attest to the conclusions in the final report that is provided above. DISCLAIMER: The study images and the final report will be retained in the patient chart by the Echo Laboratory for the legally required time period. This chart constitutes the legal record of any testing performed. Electronically Signed By: Gianni Alicia MD 08/28/2024 11:59:02 AM CDT Procedure Note Gianni Alicia MD - 08/28/2024 Transthoracic Echocardiographic Report Patient Name: LIANNA TIRADO : 1955 (69y 1m) Gender: M Study Date: 08/28/2024 08:17:00 AM Ht(Inch): 74 Wt(Lb): 180.01 BSA: 2.06 Senior Firewall Engineer: JANES Gonzalez Location: [place] [address] Order Provider:CHELO SHELDON Heart Rate: 85 BMI: 23.11 BP: 166 / 104 Ref Provider: CHELO SHELDON PROCEDURES: Echocardiographic Report: ([id number]) Transthoracic complete echo, 2D,spectral and tissue Doppler, color flow Doppler, M-mode. INDICATIONS: Respiratory Failure. FINDINGS: Left Ventricle: Normal left ventricular cavity size. Mild concentric leftventricular hypertrophy. Normal left ventricular systolic function. The EjectionFraction (Hernandes's) is measured at 57 %. Diastolic Function E to E' ratio is 8-15 which is inthe indeterminate zone. Right Ventricle: Normal right ventricular size. Normal right ventricularsystolic function. Left Atrium: The left atrium is normal in size. Right Atrium: The right atrium is normal in size. Atrial Septum: No shunt by color Doppler. Mitral Valve: Mild mitral annular calcification. No mitral regurgitationseen. No mitral valve stenosis. The mean transmitral gradient is: 5 mmHg. MV StructureAbnormalities: Mitral valve leaflets appear mildly thickened. Aortic Valve: Difficult to detemine number of Aortic Valve leaflets. Noaortic regurgitation seen. No aortic valve stenosis. The mean transaorticgradient is 8 mmHg. Probable calcific aortic valve nodule versus healed vegetation asdescribed previously on echo 01/26/2024 and 01/21/2024. Tricuspid Valve: The tricuspid valve demonstrates normal leafletstructure. There is trace to mild tricuspid valve regurgitation. The estimated pulmonaryartery systolic pressure is 58 mmHg. Estimated pulmonary artery systolic pressure isconsistent with moderate pulmonary hypertension (45-60mmHg). No tricuspid valvestenosis. Pulmonic Valve: Pulmonic Valve not well visualized due to poor echowindows. There is trace pulmonic regurgitation. No stenosis present. Pericardium: No pericardial effusion noted. Aorta: Normal aortic root. The aortic Sinus is normal in size. IVC: IVC Collapses normally with inspiration. IVC is dilated. CONCLUSIONS: 1. Normal left ventricular cavity size. Mild concentric left ventricularhypertrophy. Normal left ventricular systolic function. The Ejection Fraction(Hernandes's) is measured at 57 %. 2. Probable calcific aortic valve nodule versus healed vegetation asdescribed previously on echo 01/26/2024 and 01/21/2024. 3. The estimated pulmonary artery systolic pressure is 58 mmHg. Estimatedpulmonary artery systolic pressure is consistent with moderate pulmonaryhypertension (45-60mmHg). 4. IVC Collapses normally with inspiration. IVC is dilated. 5. Compared with echo 01/21/2024, moderate pulmonary hypertension is nownoted. MEASUREMENTS: 2D/MM Value Range DopplerValue LVIDd 2D 4.56 cm [ 3.50 - 5.70 ] AV Peak Vel1.84 m/s LVIDs 2D 3.08 cm [ 3.10 - 4.60 ] AV Peak PG13.54 mmHg IVSd 2D 1.22 cm [ 0.60 - 1.20 ] AV Mean PG8.00 mmHg LVPWd 2D 1.16 cm [ 0.60 - 1.10 ] AV VTI31.10 cm LV Thickness Ratio 1.05 LVOT Peak Vel1.17 m/s LV Mass 2D 202.85 g LVOT Peak PG5.48 mmHg LV Mass Index 2D 98.47 g/m2 LVOT Mean PG3.00 mmHg RWT 0.51 LVOT VTI19.70 cm EDV Mod BP 66.20 ml [ 62.00 - 150.00 ] LVOT Diam2.40 cm LV EDV Index 32.14 ml/m2 JOSEPH VTI2.86 cm2 ESV Mod BP 28.80 ml [ 21.00 - 61.00 ] JOSEPH Vmax2.88 cm2 EF Mod BP 57 % [ 52 - 72 ] LVOT/AV VTI0.63 - Dimensionless index (DVI) LA Dimension 2D 2.60 cm [ 1.90 - 4.00 ] MV E Peak Vel0.88 m/s LA Length 2C 5.60 cm MV A Peak Vel1.51 m/s LA Length 4C 5.25 cm MV E/A0.60 ratio LA Volume BP 14.00 ml MV Peak Vel1.59 m/s LA Volume Index 6.80 ml/m2 [ 16.00 - 34.00 ] MV Peak PG10.11 mmHg RV Base Dimen 2D 4.0 cm [ 2.5 - 4.2 ] MV Mean PG5.00 mmHg TAPSE 2.63 cm [ 1.71 - 5.00 ] MV VTI31.70 cm RA Volume 61.50 ml MV Decel Udej239.00 msec RA Volume Index 29.85 ml/m2 Med E` Vel8.92 cm/sec IVC Diam 2.41 cm Lat E` Vel8.92 cm/sec AoR Diam 2D 3.90 cm [ 2.00 - 3.70 ] Average E/E`9.87 Ao Root Index 1.89 cm/m2 [ 1.00 - 2.00 ] RV S`17.70 cm/sec Asc Ao Diam 2D 4.10 cm TR Peak Vel3.46 m/s Asc Ao Index 1.99 cm/m2 TR Peak PG47.9 mmHg PV Peak Abdelrahman 1.15 m/s PV Peak PG 5.29 mmHg PV Mean PG 3.00 mmHg RVOT VTI 16.30 - ATTESTATION: I have reviewed and interpreted the pertinent images and measurements ofthis study. I attest to the conclusions in the final report that is provided above. DISCLAIMER: The study images and the final report will be retained in the patientchart by the Echo Laboratory for the legally required time period. This chart constitutesthe legal record of any testing performed. Electronically Signed By: Gianni Alicia MD 08/28/2024 11:59:02 AM CDT Chelo Sheldon NP CV ECHO PROCEDURES Fi nal Result * (ABNORMAL) eGFR (08/28/2024 2:42 AM CDT) eGFR 5(L) >=60 mL/min/1. 73 m2 Comment: Interpretive Data [...] of Race in Diagnosing Kidney Disease, JASN 202). The CKD-EPI equation should not be used for patients with unstable renal function and has not been validated in children and those over 70. Current interpretive data was last reviewed 2021. Blood 08/28/2024 2:42 AM CDT 08/28/2024 2:51 AM CDT Rachel Montgomery NP LAB BLOOD ORDER SARAH Final Result Performing Organization Address [facility] de Phone Number [address] [address] * (ABNORMAL) Protime-INR (08/28/2024 2:42 AM CDT) [facility] PT 15.8(H) 12.0 - 14.6 sec Comment:Ref Range High INR 1.2 0.9 - 1.2 [facility] Comment: Ref Range High Interpretive data Oral anticoagulant therapeutic ranges: Venous thromboembolism prophylaxis or treatment: 2.0-3.0 CARDIOLOGY Standard range: 2.0-3.0 High-intensity range: 2.5-3.5 Refer to indication-specific guidelines for appropriate target ranges for prosthetic heart valve replacement. Current interpretive data was last revised on 2019. Blood 08/28/2024 2:42 AM CDT 08/28/2024 2:51 AM CDT us Chelo Sheldon [employer] LAB BLOOD ORDERABLES Final Result Performing Organization Address [facility] Co de Phone Number [address] [place] [address] * (ABNORMAL) CBC without differential (08/28/2024 2:42 AM CDT) [facility] WBC 4.42 3.80 - 9.90 K/cumm Hgb 8.6(L) 13.0 - 17.5 g/dL [facility] Hct 26.3(L) 38.9 - 50.3 % [facility] Plt 89(L) 150 - 400 K/cumm [facility] MPV 10.6 9.1 - 12.3 fL [facility] RBC 2.83(L) 4.30 - 5.80 M/cumm [facility] MCV 92.9 81.3 - 96.4 fL [facility] MCH 30.4 27.1 - 33.3 pg [facility] MCHC 32.7 32.3 - 35.7 g/dL [facility] RDW CV 18.6(H) 11.1 - 14.9 % [facility] RDW SD 62.4(H) 35.7 - 48.1 fL [facility] NRBC abs 0.00 0.00 - 0.01 K/cumm [facility] Blood 08/28/2024 2:42 AM CDT 08/28/2024 2:51 AM CDT Rachel Montgomery NP LAB BLOOD ORDER SARAH Final Result Performing Organization Address [facility] de Phone Number [address] [place] [address] * (ABNORMAL) Phosphorus (08/28/2024 2:42 AM CDT) [facility] Phosphorus, pl 8.1(H) 2.3 - 4.5 mg/dL Blood 08/28/2024 2:42 AM CDT 08/28/2024 2:51 AM CDT Racheldedra Montgomery LAB BLOOD ORDER SARAH Final Result Performing Organization Address [facility] de Phone Number [address] [address] * Magnesium (08/28/2024 2:42 AM CDT) [facility] Magnesium 2.5 1.4 - 2.5 mg/dL Blood 08/28/2024 2:42 AM CDT 08/28/2024 2:51 AM CDT Rachel Yulissa Montgomery [employer] LAB BLOOD ORDER SARAH Final Result Performing Organization Address [facility] de Phone Number [address] [address] * Vancomycin level random (08/28/2024 2:42 AM CDT) [facility] Vancomycin random 23.1 mcg/mL Comment: Interpretive Data No reference ranges have been established for random drug levels. Current Interpretive Data was last revised on 2020. Blood 08/28/2024 2:42 AM CDT 08/28/2024 2:51 AM CDT Ilanajanet Mustafaell DO LAB BLOOD ORDERABLES Fin al Result Performing Organization Address City/[facility]/ZIP Co de Phone Number [address] [place] [address] * (ABNORMAL) Basic metabolic panel (08/28/2024 2:42 AM CDT) [facility] Sodium 138 135 - 145 mmol/L Potassium, pl 4.0 3.3 - 4.9 mmol/L [facility] Chloride 97 97 - 110 mmol/L [facility] CO2 22 22 - 32 mmol/L [facility] Anion gap 19(H) 2 - 15 mmol/L [facility] BUN 57(H) 6 - 25 mg/dL [facility] Creatinine 10.70(H) 0.80 - 1.30 mg/dL [facility] Glucose 102 70 - 199 mg/dL [facility] Comment: Interpretive Data Fasting glucose >/= 126 [...] interpretive data was last revised 2022. Calcium 9.1 8.5 - 10.3 mg/dL [facility] Blood 08/28/2024 2:42 AM CDT 08/28/2024 2:51 AM CDT Rachel Montgomery NP LAB BLOOD ORDER SARAH Final Result Performing Organization Address [facility] Co de Phone Number [address] [place] [address] * MRI Brain W WO Contrast (08/27/2024 5:43 PM CDT) Anatomical Region Laterality Modality Head and Neck N/A Magnetic Resonan ce 08/27/2024 6:00 PM CDT Narrative 08/27/2024 6:34 PM CDT EXAM DESCRIPTION: MRI BRAIN W WO CONTRAST REASON FOR STUDY: Encephalopathy (Ped 0-17y), Pt is unresponsive, concerns for meningitis (LP not consistent with bacterial) vs encephalitis Pt is unresponsive, concerns for meningitis (LP not consistent with bacterial) vs encephalitis; Mental status change, unknown cause; Encephalopathy (Ped 0-17y) Comments: Has had bMRI in the past Pt on vent- started moving during scan- had to go to fast brain due to motion- RN with patient in ICU TECHNIQUE: Multiplanar imaging includes noncontrast T1, T2, FLAIR, diffusion with ADC map and post contrast T1 sequences. Additional sequence(s) sensitive to blood products. Images stored on PACS. CONTRAST TYPE/DOSE: 16mL of GADOTERATE MEGLUMINE 0.5 MMOL/ML INTRAVENOUS SOLUTION (SO) injected via intravenous COMPARISON: MRI of the brain dated 08/29/[address], most recent dated 08/24/2024. FINDINGS: CEREBRUM: No hemorrhage, edema, or mass effect. Mild volume loss involving body of the corpus callosum. No abnormal enhancement. WHITE MATTER: Small old lacunar infarcts involving the bilateral yip radiata. There are scattered bilateral subcortical and more confluent periventricular supratentorial white matter T2/FLAIR hyperintensities, most compatible with [id number] chronic small vessel ischemic changes. POSTERIOR FOSSA: Brainstem and cerebellum appear unremarkable. No abnormal enhancement. DIFFUSION IMAGING: No recent infarction. EXTRAAXIAL SPACES: No hemorrhage. No mass or abnormal enhancement. BRAIN VOLUME: The ventricles and sulci are vdrg-qp-mfexwieceb enlarged commensurate with global parenchymal volume loss. PITUITARY: Unremarkable. VASCULATURE: No flow disturbance identified. ORBITS: No masses. Globes normal. PARANASAL SINUSES AND MASTOIDS: Well-aerated with no fluid levels. Dxai-gf-ckejsbyn diffuse paranasal sinus mucosal thickening. The bilateral mastoid air cells are redemonstrated partial opacification/effusions. OTHER: No other significant finding. IMPRESSION: 1. No acute intracranial abnormality. No evidence of recent infarct. 2. Findings consistent with sequela of ezzj-tr-zngvnlzr chronic ischemic microangiopathy, old bilateral yip radiata lacunar infarcts, mikh-vw-gyckwzxn global parenchymal atrophy. 3. Evrn-cl-vomkfspz paranasal sinus inflammatory disease. THIS IS AN ELECTRONICALLY VERIFIED FINAL REPORT 08/27/2024 6:34 PM - Electronically signed by Teddy Murrell M.D. T: Report ID: [id number] Reading Location: [id number] Procedure Note Teddy Murrell, DO - 08/27/2024 EXAM DESCRIPTION: MRI BRAIN W WO CONTRAST REASON FOR STUDY: Encephalopathy (Ped 0-17y), Pt is unresponsive,concerns for meningitis (LP not consistent with bacterial) vs encephalitis Pt is unresponsive, concerns for meningitis (LP not consistent withbacterial) vs encephalitis; Mental status change, unknown cause; Encephalopathy (Ped 0-17y) Comments: Has had bMRI in the past Pt on vent- started moving during scan- had to go to fast brain due to motion- RN with patient in ICU TECHNIQUE: Multiplanar imaging includes noncontrast T1, T2, FLAIR,diffusion with ADC map and post contrast T1 sequences. Additional sequence(s)sensitive to blood products. Images stored on PACS. CONTRAST TYPE/DOSE: 16mL of GADOTERATE MEGLUMINE 0.5 MMOL/ML INTRAVENOUS SOLUTION (SO) injected via intravenous COMPARISON: MRI of the brain dated 08/29/[address], most recentdated 08/24/2024. FINDINGS: CEREBRUM: No hemorrhage, edema, or mass effect. Mild volumeloss involving body of the corpus callosum. No abnormal enhancement. WHITE MATTER: Small old lacunar infarcts involving the bilateral yip radiata. There are scattered bilateral subcortical and more confluent periventricular supratentorial white matter T2/FLAIR hyperintensities,most compatible with czhd-ku-vlofosun chronic small vessel ischemic changes. POSTERIOR FOSSA: Brainstem and cerebellum appear unremarkable. Noabnormal enhancement. DIFFUSION IMAGING: No recent infarction. EXTRAAXIAL SPACES: No hemorrhage. No mass or abnormal enhancement. BRAIN VOLUME: The ventricles and sulci are rdlc-ug-wuzrxqosff enlarged commensurate with global parenchymal volume loss. PITUITARY: Unremarkable. VASCULATURE: No flow disturbance identified. ORBITS: No masses. Globes normal. PARANASAL SINUSES AND MASTOIDS: Well-aerated with no fluid levels. Huwl-hj-bdijgddd diffuse paranasal sinus mucosal thickening. Thebilateral mastoid air cells are redemonstrated partial opacification/effusions. OTHER: No other significant finding. IMPRESSION: 1. No acute intracranial abnormality. No evidence of recent infarct. 2. Findings consistent with sequela of weku-fu-xzfiqrem chronic ischemic microangiopathy, old bilateral yip radiata lacunar infarcts, rufv-bb-tbtncbfc global parenchymal atrophy. 3. Ojgf-oh-pmtmbtee paranasal sinus inflammatory disease. THIS IS AN ELECTRONICALLY VERIFIED FINAL REPORT 08/27/2024 6:34 PM - Electronically signed by Teddy Murrell M.D. T: Report ID: [id number] Reading Location: [place] [address] Chelo Sheldon NP IMG MRI PROCEDURES Fi nal Result * Heavy metals, blood, quantitative (08/27/2024 12:52 PM CDT) Pathologist [facility] Arsenic <1 <13 ng/mL [facility] Comment: ADDITIONAL INFORMATION This test was developed and its performance characteristics determined by [facility] in a manner consistent with CLIA requirements. This test has not been cleared or approved by the U.S. Food and Drug Administration. Lead 2.3 <3.5 mcg/dL [facility] Comment: ADDITIONAL INFORMATION Testing performed by Triple Quadrupole Inductively Coupled Plasma-Mass Spectrometry (ICP-MS/MS). This test was developed and its performance characteristics determined by [facility] in a manner consistent with CLIA requirements. This test has not been cleared or approved by the U.S. Food and Drug Administration. Mercury <1 <10 ng/mL [facility] Comment: ADDITIONAL INFORMATION This test was developed and its performance characteristics determined by [facility] in a manner consistent with CLIA requirements. This test has not been cleared or approved by the U.S. Food and Drug Administration. Cadmium, Blood 0.9 <5.0 ng/mL [facility] Comment: ADDITIONAL INFORMATION This test was developed and its performance characteristics determined by [facility] in a manner consistent with CLIA requirements. This test has not been cleared or approved by the U.S. Food and Drug Administration. Blood 08/27/2024 12:5 2 PM CDT 08/27/2024 1:06 PM CDT [email or web address] BLOOD ORDERABLES Trina l Result Performing Organization Address [facility] de Phone Number [facility] [address] [facility] Department of Laboratories [place] [phone] [facility] * Lead, blood (08/27/2024 12:52 PM CDT) [facility] Signature Lead 2.3 <3.5 mcg/dL [facility] Comment: ADDITIONAL INFORMATION Testing performed by Inductively Coupled Plasma-Mass Spectrometry (ICP-MS). This test was developed and its performance characteristics determined by [facility] in a manner consistent with CLIA requirements. This test has not been cleared or approved by the U.S. Food and Drug Administration. Blood 08/27/2024 12:5 2 PM CDT 08/27/2024 1:06 PM CDT [employer] LAB BLOOD ORDERABLES Trina l Result Performing Organization Address [facility] de Phone Number ANTONIETTAN[facility] [address] [facility] Department [place] [address] [facility] * Critical Care (08/27/2024 10:33 AM CDT) Narrative LinkBreanna Kinsey, DO - 08/27/2024 10:33 AM CDT Sundeep Breanna Euceda DO 08/27/2024 3:31 PM Critical Care Performed by: Chelo Sheldon NP Authorized by: Chelo Sheldon NP CRITICAL CARE: Team: CARMEN Shift: AM Level of Billing: Critical Care My time spent with this patient was 90 minutes: Critical Provider Statement: I have seen and examined the patient on this day of service. I have reviewed and confirmed the history, physical exam, laboratory and radiologic data as documented in the signed ICU note. I have reviewed and discussed my treatment plan with the ICU team and other medical/service loss control consultant staff, making frequent assessments and decisions regarding this patient's complex medical care. Critical Care time was exclusive of time spent performing separately billed procedures, treating other patients, and teaching. This time was in addition to and separate from critical care provided by other practitioners in my group on this day of service. Critical Care was necessary to treat or prevent imminent or life-threatening deterioration of the following conditions: I spent time reviewing and interpreting data from bedside monitors, laboratory results, and imaging, I spent time discussing the management of this critically ill patient with consultants and the medical staff and I spent time documenting in the medical record Chelo Sheldon NP IN CLINIC/BEDSIDE ORD ERABLES Final Result * (ABNORMAL) eGFR (08/27/2024 2:38 AM CDT) [facility] eGFR 6(L) >=60 mL/min/1. 73 m2 Comment: Interpretive Data [...] of Race in Diagnosing Kidney Disease, JASN 202). The CKD-EPI equation should not be used for patients with unstable renal function and has not been validated in children and those over 70. Current interpretive data was last reviewed 2021. Blood 08/27/2024 2:38 AM CDT 08/27/2024 3:08 AM CDT Rachel Montgomery NP LAB BLOOD ORDER SARAH Final Result [place] [id number] [facility] Department [place] [address] * (ABNORMAL) CBC without differential (08/27/2024 2:38 AM CDT) WBC 3.27(L) 3.80 - 9.90 K/cumm Hgb 8.9(L) 13.0 - 17.5 g/dL [facility] Hct 27.4(L) 38.9 - 50.3 % [facility] Plt 89(L) 150 - 400 K/cumm [facility] MPV 11.8 9.1 - 12.3 fL [facility] RBC 2.89(L) 4.30 - 5.80 M/cumm [facility] MCV 94.8 81.3 - 96.4 fL [facility] MCH 30.8 27.1 - 33.3 pg [facility] MCHC 32.5 32.3 - 35.7 g/dL [facility] RDW CV 18.5(H) 11.1 - 14.9 % [facility] RDW SD 63.5(H) 35.7 - 48.1 fL [facility] NRBC abs 0.00 0.00 - 0.01 K/cumm [facility] Blood 08/27/2024 2:38 AM CDT 08/27/2024 3:08 AM CDT Rachel Montgomery NP LAB BLOOD ORDER SARAH Final Result Performing Organization Address [facility] Co de Phone Number [address] [address] * (ABNORMAL) Phosphorus (08/27/2024 2:38 AM CDT) [facility] Phosphorus, pl 7.4(H) 2.3 - 4.5 mg/dL Blood 08/27/2024 2:38 AM CDT 08/27/2024 3:08 AM CDT Rachel Montgomery NP LAB BLOOD ORDER SARAH Final Result Performing Organization Address [facility] de Phone Number [address] [address] * Magnesium (08/27/2024 2:38 AM CDT) [facility] Magnesium 2.3 1.4 - 2.5 mg/dL Blood 08/27/2024 2:38 AM CDT 08/27/2024 3:08 AM CDT Rachel Montgomery LAB BLOOD ORDER SARAH Final Result Performing Organization Address [facility] de Phone Number [address] [address] * (ABNORMAL) Basic metabolic panel (08/27/2024 2:38 AM CDT) [facility] Sodium 139 135 - 145 mmol/L Potassium, pl 4.1 3.3 - 4.9 mmol/L [facility] Comment:Hemolyzed; Potassium value may be falsely elevated by as much as 1.0 mmol/L. Suggest redraw and reanalysis. Chloride 98 97 - 110 mmol/L [facility] CO2 23 22 - 32 mmol/L [facility] Anion gap 18(H) 2 - 15 mmol/L [facility] BUN 41(H) 6 - 25 mg/dL [facility] Creatinine 8.93(H) 0.80 - 1.30 mg/dL [facility] Glucose 104 70 - 199 mg/dL [facility] Comment: Interpretive Data Fasting glucose >/= 126 [...] interpretive data was last revised 2022. Calcium 9.2 8.5 - 10.3 mg/dL [facility] Blood 08/27/2024 2:38 AM CDT 08/27/2024 3:08 AM CDT Rachel Montgomery NP LAB BLOOD ORDER SARAH Final Result [facility] [address] [facility] Department [place] [address] * ECG 12 lead (08/27/2024 1:22 AM CDT) Ventricular Rate EKG/Min 88 BPM [facility] Atrial Rate 88 BPM [facility] IN-Interval (MSEC) 212 ms [facility] QRS-Interval (MSEC) 92 ms [facility] QT-Interval (MSEC) 426 ms [facility] QTc 515 ms [facility] P Hudgins 64 degrees [facility] R Hudgins 71 degrees [facility] T Hudgins 62 degrees [facility] Diagnosis Sinus rhythm with 1st degree A-V block Prolonged QT Abnormal ECG When compared with ECG of 07-APR-2024 23:22, ST no longer depressed in Anterior leads QT has lengthened Confirmed by PRAVIN TREJO M.D. ([id number]) on 08/27/2024 12:51:46 PM [facility] 08/27/2024 1:22 AM CDT 08/27/2024 12:51 PM CDT us Harjit Levy MD ECG ORDERABLES Final Result [facility] * Critical Care (08/26/2024 11:06 PM CDT) Narrative Harjit Levy MD - 08/26/2024 11:06 PM CDT Harjit Levy MD 08/27/2024 4:27 AM Critical Care Performed by: Harjit Levy MD Authorized by: Harjit Levy MD CRITICAL CARE: Team: B Shift: PM Level of Billing: Critical Care My time spent with this patient was 38 minutes: Critical Provider Statement: I have seen and examined the patient on this day of service. I have reviewed and confirmed the history, physical exam, laboratory and radiologic data as documented in the signed ICU note. I have reviewed and discussed my treatment plan with the ICU team and other medical/service loss control consultant staff, making frequent assessments and decisions regarding this patient's complex medical care. Critical Care time was exclusive of time spent performing separately billed procedures, treating other patients, and teaching. This time was in addition to and separate from critical care provided by other practitioners in my group on this day of service. Critical Care was necessary to treat or prevent imminent or life-threatening deterioration of the following conditions: Encephalopathy/altered mental status Acute hypoxic respiratory failure This time was spent by me doing the following: Active titration of continuous sedation and Administration of sedatives and psychotropic medications Invasive ventilator management, reassessment, and titration I spent time reviewing and interpreting data from bedside monitors, laboratory results, and imaging us Harjit Levy MD IN CLINIC/BEDSIDE ORDERABLES Final Result * Critical Care (08/26/2024 7:14 AM CDT) Narrative Breanna Urbano DO - 08/26/2024 7:14 AM CDT Breanna Urbano DO 08/27/2024 12:08 PM Critical Care Performed by: Chelo Sheldon NP Authorized by: Chelo Sheldon NP CRITICAL CARE: Team: B Shift: AM Level of Billing: Critical Care My time spent with this patient was 90 minutes: Critical Provider Statement: I have seen and examined the patient on this day of service. I have reviewed and confirmed the history, physical exam, laboratory and radiologic data as documented in the signed ICU note. I have reviewed and discussed my treatment plan with the ICU team and other medical/service loss control consultant staff, making frequent assessments and decisions regarding this patient's complex medical care. Critical Care time was exclusive of time spent performing separately billed procedures, treating other patients, and teaching. This time was in addition to and separate from critical care provided by other practitioners in my group on this day of service. Critical Care was necessary to treat or prevent imminent or life-threatening deterioration of the following conditions: I spent time reviewing and interpreting data from bedside monitors, laboratory results, and imaging, I spent time discussing the management of this critically ill patient with consultants and the medical staff and I spent time documenting in the medical record us Chelo Sheldon NP IN CLINIC/BEDSIDE ORD ERABLES Final Result * (ABNORMAL) eGFR (08/26/2024 3:08 AM CDT) eGFR 8(L) >=60 mL/min/1. 73 m2 Comment: Interpretive Data [...] of Race in Diagnosing Kidney Disease, JASN 202). The CKD-EPI equation should not be used for patients with unstable renal function and has not been validated in children and those over 70. Current interpretive data was last reviewed 2021. Blood 08/26/2024 3:08 AM CDT 08/26/2024 3:15 AM CDT us Isidro Daigle MD LAB BLOOD ORDERABLES Final R esult DARA [address] [facility] Department [place] [address] * (ABNORMAL) Differential, auto (08/26/2024 3:08 AM CDT) Neutrophil abs 1.18(L) 1.50 - 6.50 K/cumm Imm gran abs 0.01 0.00 - 0.10 K/cumm [facility] Lymphocyte abs 0.84 0.80 - 3.30 K/cumm [facility] Monocyte abs 0.55 0.20 - 0.80 K/cumm [facility] Eosinophil abs 0.41 0.00 - 0.50 K/cumm [facility] Basophil abs 0.02 0.00 - 0.10 K/cumm [facility] Neutrophil pct 39.2 % [facility] Comment: Interpretive Data Percent cell count reference ranges are not reported, since discordance with absolute values may lead to misinterpretation of CBC data. Current Interpretive Data was last revised on 2017. Imm gran pct 0.3 % [facility] Comment: Interpretive Data Percent cell count reference ranges are not reported, since discordance with absolute values may lead to misinterpretation of CBC data. Current Interpretive Data was last revised on 2017. Lymphocyte pct 27.9 % [facility] Comment: Interpretive Data Percent cell count reference ranges are not reported, since discordance with absolute values may lead to misinterpretation of CBC data. Current Interpretive Data was last revised on 2017. Monocyte pct 18.3 % [facility] Comment: Interpretive Data Percent cell count reference ranges are not reported, since discordance with absolute values may lead to misinterpretation of CBC data. Current Interpretive Data was last revised on 2017. Eosinophil pct 13.6 % [facility] Comment: Interpretive Data Percent cell count reference ranges are not reported, since discordance with absolute values may lead to misinterpretation of CBC data. Current Interpretive Data was last revised on 2017. Basophil pct 0.7 % [facility] Comment: Interpretive Data Percent cell count reference ranges are not reported, since discordance with absolute values may lead to misinterpretation of CBC data. Current Interpretive Data was last revised on 2017. Blood 08/26/2024 3:08 AM CDT 08/26/2024 3:15 AM CDT Isidro Daigle MD LAB BLOOD ORDERABLES Final R esult Performing Organization Address City/[facility]/ZIP Co de Phone Number [facility] [address] [address] * (ABNORMAL) CBC with auto differential (08/26/2024 3:08 AM CDT) WBC 3.01(L) 3.80 - 9.90 K/cumm Hgb 9.4(L) 13.0 - 17.5 g/dL [facility] Hct 30.2(L) 38.9 - 50.3 % [facility] Plt 77(L) 150 - 400 K/cumm [facility] MPV 9.3 9.1 - 12.3 fL [facility] RBC 3.10(L) 4.30 - 5.80 M/cumm [facility] MCV 97.4(H) 81.3 - 96.4 fL [facility] MCH 30.3 27.1 - 33.3 pg [facility] MCHC 31.1(L) 32.3 - 35.7 g/dL [facility] RDW CV 18.6(H) 11.1 - 14.9 % [facility] RDW SD 66.7(H) 35.7 - 48.1 fL [facility] NRBC abs 0.00 0.00 - 0.01 K/cumm [facility] Blood 08/26/2024 3:08 AM CDT 08/26/2024 3:15 AM CDT us Isidro Daigle MD LAB BLOOD ORDERABLES Final R esult DARA [address] [place] [address] * (ABNORMAL) Phosphorus (08/26/2024 3:08 AM CDT) Phosphorus, pl 6.1(H) 2.3 - 4.5 mg/dL Blood 08/26/2024 3:08 AM CDT 08/26/2024 3:15 AM CDT Rachel Montgomery LAB BLOOD ORDER SARAH Final Result Performing Organization Address [facility] de Phone Number [address] [place] [address] * Magnesium (08/26/2024 3:08 AM CDT) [facility] Magnesium 2.4 1.4 - 2.5 mg/dL Blood 08/26/2024 3:08 AM CDT 08/26/2024 3:15 AM CDT [facility] Yulissa Montgomery LAB BLOOD ORDER SARAH Final Result Performing Organization Address [facility] Phone Number [address] [address] * (ABNORMAL) Comprehensive metabolic panel (08/26/2024 3:08 AM CDT) [facility] Sodium 138 135 - 145 mmol/L Potassium, pl 4.3 3.3 - 4.9 mmol/L [facility] Comment:Hemolyzed; Potassium value may be falsely elevated by as much as 1.0 mmol/L. Suggest redraw and reanalysis. Chloride 98 97 - 110 mmol/L [facility] CO2 27 22 - 32 mmol/L [facility] Anion gap 13 2 - 15 mmol/L [facility] BUN 24 6 - 25 mg/dL [facility] Creatinine 6.85(H) 0.80 - 1.30 mg/dL [facility] Glucose 96 70 - 199 mg/dL [facility] Comment: Interpretive Data Fasting glucose >/= 126 [...] interpretive data was last revised 2022. Calcium 8.5 8.5 - 10.3 mg/dL [facility] Bilirubin, total 0.2 0.1 - 1.2 mg/dL [facility] Protein, pl 7.2 6.5 - 8.5 g/dL [facility] Albumin 3.5 3.5 - 5.0 g/dL [facility] Alk phos 63 40 - 130 Units/L [facility] ALT 29 7 - 55 Units/L [facility] AST 32 10 - 50 Units/L [facility] Blood 08/26/2024 3:08 AM CDT 08/26/2024 3:15 AM CDT Isidro Dagile MD LAB BLOOD ORDERABLES Final R esult [facility]ARA [address] [facility] Department [place] [address] * Critical Care (08/25/2024 10:26 PM CDT) Narrative Harjit Levy MD - 08/25/2024 10:26 PM CDT Harjit Levy MD 08/26/2024 3:06 AM Critical Care Performed by: Harjit Levy MD Authorized by: Harjit Levy MD CRITICAL CARE: Team: B Shift: PM Level of Billing: Critical Care My time spent with this patient was 30 minutes: Critical Provider Statement: I have seen and examined the patient on this day of service. I have reviewed and confirmed the history, physical exam, laboratory and radiologic data as documented in the signed ICU note. I have reviewed and discussed my treatment plan with the ICU team and other medical/service loss control consultant staff, making frequent assessments and decisions regarding this patient's complex medical care. Critical Care time was exclusive of time spent performing separately billed procedures, treating other patients, and teaching. This time was in addition to and separate from critical care provided by other practitioners in my group on this day of service. Critical Care was necessary to treat or prevent imminent or life-threatening deterioration of the following conditions: Encephalopathy/altered mental status Acute hypoxic respiratory failure This time was spent by me doing the following: Active titration of continuous sedation Invasive ventilator management, reassessment, and titration Review of prior or current culture/gram stain results and Empiric broad coverage antibiotics I spent time reviewing and interpreting data from bedside monitors, laboratory results, and imaging Harjit Levy MD IN CLINIC/BEDSIDE ORDERABLES Final Result * Pneumonia PCR Tracheal aspirate (08/25/2024 10:45 AM CDT) C. pneumoniae DNA Not Detected Not Detected Comment:Testing performed by : [facility], [address] [place] [address]., [id number] Legionella pneumophila DNA Not Detected Not Detected CERELLEN Comment:Testing performed by : [facility], [address] [place] [address]., [id number] M. pneumoniae DNA Not Detected Not Detected CERELLEN Comment:Testing performed by : [facility], [address] [place] [address]., [id number] Adenovirus DNA Not Detected Not Detected CERELLEN Comment:Testing performed by : [facility], [address] [place] [address]., [id number] Coronavirus (229E, OC43, HKU1, NL63) RNA Not Detected Not Detected CERELLEN Comment:Testing performed by : [facility], [address] [place] [address]., [id number] Metapneumovirus RNA Not Detected Not Detected CERELLEN Comment:Testing performed by : [facility], [address] [place] [address]., [id number] Rhinovirus/Enterov irus RNA Not Detected Not Detected CERELLEN Comment:Testing performed by : [facility], [address] [place] [address]., [id number] Influenza A RNA Not Detected Not Detected CERELLEN Comment:Testing performed by : [facility], [address] [place]., [address] Influenza B RNA Not Detected Not Detected DARA NORRIS Comment:Testing performed by : [facility], [address] [place]., [address] Parainfluenza virus (1-4) RNA Not Detected Not Detected DARA NORRIS Comment:Testing performed by : [facility], [address] [place]., [address] RSV RNA Not Detected Not Detected DARA Comment:Testing performed by : [facility], [address] [place]., [address] Tracheal aspirate 08/25/2024 10:45 AM CDT 08/25/2024 5:19 PM CDT Narrative DARA - 08/25/2024 6:57 PM CDT The [employer] Pneumonia Panel is a multiplexed nucleic acid test capable of simultaneous detection and identification of multiple respiratory viruses and bacteria. This panel detects Adenovirus, coronaviruses (Coronavirus HKU1, Coronavirus NL63, Coronavirus 229E, and Coronavirus OC43), Influenza A, Influenza B, Human metapneumovirus, Parainfluenza (1-4), RSV, Rhinovirus/Enterovirus, Chlamydia pneumoniae, Mycoplasma pneumoniae, and Legionella pneumophila. Additional aerobic bacterial targets are reported with the accompanying culture results with the same accession number. Rhinovirus and Enterovirus are genetically similar and cannot be reliably differentiated with this method. Negative adenovirus results should be confirmed by an alternative methodology (i.e. standalone PCR) if the suspicion for adenovirus infection is high. The results of this test must be considered in the clinical context of the patient and should not be used as the sole basis for diagnosis, treatment, or other management decisions. Negative results in the setting of a respiratory illness may be due to infection with pathogens that are not detected by this test. Positive results do not rule out infection/co-infection with other organisms. The [employer] Pneumonia Panel is FDA cleared for lower respiratory tract specimens. The performance characteristics of this assay have been determined by [facility]. Current interpretive data was last revised on 2023. us Rachel Yulissa Montgomery NP LAB MICROBIOLOG Y - GENERAL ORDERABLES Final Result DARA NORRIS [address] [facility] Department [place] [address] * (ABNORMAL) Pneumonia PCR with aerobic culture and Gram stain Tracheal aspirate (08/25/2024 10:45 AMCDT) Direct Specimen Exam Molecular Analysis: 10^4 copies/mL Pseudomonas aeruginosa Correlation of molecular analysis with final culture results is recommended. Comment:Testing performed by : [facility], [address] [place] [address]., [id number] Direct Specimen Exam Stain: Few polymorphonuclear leukocytes seen. Few squamous epithelial cells seen. No organisms seen. DARA Comment:Testing performed by : [facility], [address] [place] [address]., [id number] Report Final Report: Insignificant growth based on current clinical standards. (.) DARA NORRIS Comment:Testing performed by : [facility], [address] [place] [address]., [id number] Tracheal aspirate 08/25/2024 10:45 AM CDT 08/25/2024 4:02 PM CDT [facility] DARA - 08/27/2024 2:17 PM CDT When rapid molecular testing results are reported, testing completed using the [employer] Pneumonia Panel. This molecular assay detects: Acinetobacter calcoaceticus-baumannii complex, Enterobacter cloacae complex, Escherichia coli, Haemophilus influenzae, Enterobacter (Klebsiella) aerogenes, Klebsiella oxytoca, Klebsiella pneumoniae group, Moraxella catarrhalis, Proteus spp., Pseudomonas aeruginosa, Serratia marcescens, Staphylococcus aureus, Streptococcus agalactiae, Streptococcus pneumoniae, and Streptococcus pyogenes. These bacteria are detected and reported semi-quantitatively with bins representing approximately 10^4, 10^5, 10^6, or greater than or equal to 10^7 genomic copies of bacterial nucleic acid per mL (copies/mL) of specimen. These quantities are reported to aid in estimating the relative abundance of organism(s) detected within the specimen and to correlate these results with culture results. For Staphylococcus aureus, mecA/C and MREJ genes are evaluated to predict methicillin resistance or susceptibility. For Gram-negative bacteria, the beta-lactamases CTX-M, IMP, KPC, NDM, VIM and OXA-48-like are evaluated and reported if detected. For Gram-negative organisms, the absence of detection of resistance markers does not exclude resistance. Correlation with final culture results and susceptibility testing is recommended. The [employer] Pneumonia Panel is cleared by the [place] Food and Drug Administration and its performance characteristics have been confirmed by the [facility]. The performance of the [employer] Pneumonia Panel has not been established for monitoring treatment of infection and bacterial nucleic acids may persist independent of organism viability. Rachel Montgomery NP LAB MICROBIOLOG Y - GENERAL ORDERABLES Final Result DARA [address] [facility] Department [place] [address] * Critical Care (08/25/2024 8:29 AM CDT) Ilana Lindsey DO - 08/25/2024 8:29 AM CDT Ilana Houston DO 08/25/2024 12:19 PM Critical Care Performed by: Rachel Montgomery NP Authorized by: Rachel Montgomery NP CRITICAL CARE: Team: CARMEN Shift: AM Level of Billing: Critical Care My time spent with this patient was 75 minutes: Critical Provider Statement: I have seen and examined the patient on this day of service. I have reviewed and confirmed the history, physical exam, laboratory and radiologic data as documented in the signed ICU note. I have reviewed and discussed my treatment plan with the ICU team and other medical/service loss control consultant staff, making frequent assessments and decisions regarding this patient's complex medical care. Critical Care time was exclusive of time spent performing separately billed procedures, treating other patients, and teaching. This time was in addition to and separate from critical care provided by other practitioners in my group on this day of service. Critical Care was necessary to treat or prevent imminent or life-threatening deterioration of the following conditions: Acute pain/acute postoperative pain, Agitation requiring sedation and Encephalopathy/altered mental status Acute hypoxic respiratory failure This time was spent by me doing the following: Serial bedside patient exams and Serial laboratory checks Active titration of continuous sedation and Acute pain control Active and frequent reassessment of respiratory status and oxygen requirements and Invasive ventilator management, reassessment, and titration Enteral tube feeding management Empiric broad coverage antibiotics and Review of prior or current culture/gram stain results I spent time discussing the management of this critically ill patient with consultants and the medical staff, I spent time reviewing and interpreting data from bedside monitors, laboratory results, and imaging and I spent time documenting in the medical record Rachel Montgomery NP IN CLINIC/BEDSI DE ORDERABLES Final Result * (ABNORMAL) eGFR (08/25/2024 2:16 AM CDT) Pathologist [facility] eGFR 7(L) >=60 mL/min/1. 73 m2 Comment: [...] of Race in Diagnosing Kidney Disease, JASN 202). The CKD-EPI equation should not be used for patients with unstable renal function and has not been validated in children and those over 70. Current interpretive data was last reviewed 2021. Blood 08/25/2024 2:16 AM CDT 08/25/2024 2:42 AM CDT Rachel Montgomery NP LAB BLOOD ORDER SARAH Final Result ANTONIETTAABA [address] [facility] Department of Laboratories [place], [place] [id number] * (ABNORMAL) CBC without differential (08/25/2024 2:16 AM CDT) Pathologist [facility] WBC 2.98(L) 3.80 - 9.90 K/cumm Hgb 9.2(L) 13.0 - 17.5 g/dL [facility] Hct 30.2(L) 38.9 - 50.3 % [facility] Plt 70(L) 150 - 400 K/cumm [facility] MPV 10.7 9.1 - 12.3 fL [facility] RBC 3.07(L) 4.30 - 5.80 M/cumm [facility] MCV 98.4(H) 81.3 - 96.4 fL [facility] MCH 30.0 27.1 - 33.3 pg [facility] MCHC 30.5(L) 32.3 - 35.7 g/dL [facility] RDW CV 18.7(H) 11.1 - 14.9 % [facility] RDW SD 68.0(H) 35.7 - 48.1 fL [facility] NRBC abs 0.00 0.00 - 0.01 K/cumm [facility] Blood 08/25/2024 2:16 AM CDT 08/25/2024 2:42 AM CDT Racheldedra Montgomery [employer] LAB BLOOD ORDER SARAH Final Result Performing Organization Address [facility] de Phone Number [address] [employer] [place] [address] * (ABNORMAL) Phosphorus (08/25/2024 2:16 AM CDT) Pathologist [facility] Phosphorus, pl 6.4(H) 2.3 - 4.5 mg/dL Blood 08/25/2024 2:16 AM CDT 08/25/2024 2:42 AM CDT [facility] BLOOD ORDER SARAH Final Result Performing Organization Address City/[facility] Co de Phone Number [address] [place] [address] * Magnesium (08/25/2024 2:16 AM CDT) [facility] Magnesium 2.5 1.4 - 2.5 mg/dL Blood 08/25/2024 2:16 AM CDT 08/25/2024 2:42 AM CDT Rachel Montgomery [employer] LAB BLOOD ORDER SARAH Final Result Performing Organization Address [facility] de Phone Number [address] [address] * Vancomycin level random (08/25/2024 2:16 AM CDT) [facility] Vancomycin random 18.9 mcg/mL Comment: Interpretive Data No reference ranges have been established for random drug levels. Current Interpretive Data was last revised on 2020. Blood 08/25/2024 2:16 AM CDT 08/25/2024 2:42 AM CDT Ilana Houston DO LAB BLOOD ORDERABLES Fin al Result Performing Organization Address [facility] de Phone Number [address] [address] * (ABNORMAL) Basic metabolic panel (08/25/2024 2:16 AM CDT) [facility] Sodium 141 135 - 145 mmol/L Potassium, pl 4.1 3.3 - 4.9 mmol/L [facility] Chloride 101 97 - 110 mmol/L [facility] CO2 24 22 - 32 mmol/L [facility] Anion gap 16(H) 2 - 15 mmol/L [facility] BUN 29(H) 6 - 25 mg/dL [facility] Creatinine 8.12(H) 0.80 - 1.30 mg/dL [facility] Glucose 75 70 - 199 mg/dL [facility] Comment: Interpretive Data Fasting glucose >/= 126 [...] interpretive data was last revised 2022. 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 male presented to OSH on 08/20/24 with complaints of AMS. Per family, patient is typically Ax 4 and compliant with his medication and dialysis regimen. He has a history of IV drug use but has abstained for 31 years since being diagnosed with HIV. While at the OSH he became progressively more confused requiring sedation and restraints for safety. Initially it was thought that he had potential baclofen toxicity as he was changed from cyclobenzaprine to baclofen approximately 4 days prior to presentation. On 08/21/24 he became increasing confused and disoriented to the point he pulled out his tunneled HD catheter. He was intubated and the catheter was replaced. Due to his worsening mental status despite dialysis and holding baclofen, LP was performed which showed elevated nucleated cells, elevated lymphocytes, macrophages, and elevated total protein. It is also notable that his CD4 count was low at 63 which is abnormal for him. He was transferred to our facility for a higher level of care and specialty services including infectious disease. concern for SENIOR QUALITY ASSURANCE ANALYST infection or meningitis TECHNIQUE: Axial images acquired through the brain without intravenous contrast. Coronal and sagittal reformats were performed. Images stored on PACS. Automated mA/kV exposure control was used as a dose optimization technique for this examination and patient examination was performed in strict accordance with principles of ALARA. COMPARISON: Multiple prior head CTs, the most recent dated October 11, 2023 and most recent MRI of the brain dated August 29, 2023. FINDINGS: BRAIN: There is no midline shift, mass or mass effect. The ventricles, cisterns and sulci are globally and proportionally prominent consistent with atrophy. There is normal differentiation of the casarez-white matter. There is no intracranial hemorrhage. There is decreased attenuation in the periventricular white matter, nonspecific, but likely related to small vessel ischemic change. There is no abnormal enhancement seen following contrast administration. There is no significant change as compared to previous study. EXTRA-AXIAL SPACES: No fluid collections. No masses. CALVARIUM: No fracture. SINUSES/MASTOIDS: There is an old, healed right lamina papyracea fracture. There is mild mucosal thickening of the left sphenoid sinus. The remaining paranasal sinuses and mastoid air cells are clear. ORBITS: No significant abnormality. OTHER: No other significant abnormality. IMPRESSION: No acute intracranial abnormality. No abnormal enhancement. Global atrophy and white matter changes consistent with small-vessel ischemic disease. THIS IS AN ELECTRONICALLY VERIFIED FINAL REPORT 08/25/2024 1:49 AM - Electronically signed by Katina Le M.D. 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 male presented to OS on 08/20/24 with complaints ofAMS. Per family, patient is typically Ax 4 and compliant with his medicationand dialysis regimen. He has a history of IV drug use but has abstained for 31 years since being diagnosed with HIV. While at the OSH he became progressively more confused requiring sedation and restraints for safety. Initially it was thought that he had potential baclofen toxicity as he was changed from cyclobenzaprine to baclofen approximately 4 days prior to presentation. On 08/21/24 he became increasing confused and disoriented tothe point he pulled out his tunneled HD catheter. He was intubated and the catheter was replaced. Due to his worsening mental status despite dialysisand holding baclofen, LP was performed which showed elevated nucleatedcells, elevated lymphocytes, macrophages, and elevated total protein. It is also notable that his CD4 count was low at 63 which is abnormal for him. He was transferred to our facility for a higher level of care and specialty services including infectious disease. concern for SENIOR QUALITY ASSURANCE ANALYST infection or meningitis TECHNIQUE: Axial images acquired through the brain without intravenous contrast. Coronal and sagittal reformats were performed. Images storedon PACS. Automated mA/kV exposure control was used as a dose optimization technique for this examination and patient examination was performed instrict accordance with principles of ALARA. COMPARISON: Multiple prior head CTs, the most recent dated October 10nd most recent MRI of the brain dated August 29, 2023. FINDINGS: BRAIN: There is no midline shift, mass or mass effect. The ventricles, cisterns and sulci are globally and proportionally prominent consistent with atrophy. There is normal differentiation of the casarez-white matter. There is no intracranial hemorrhage. There is decreasedattenuation in the periventricular white matter, nonspecific, but likely related tosmall vessel ischemic change. There is no abnormal enhancement seen following contrast administration. There is no significant change as compared to previous study. EXTRA-AXIAL SPACES: No fluid collections. No masses. CALVARIUM: No fracture. SINUSES/MASTOIDS: There is an old, healed right lamina papyraceafracture. There is mild mucosal thickening of the left sphenoid sinus. Theremaining paranasal sinuses and mastoid air cells are clear. ORBITS: No significant abnormality. OTHER: No other significant abnormality. IMPRESSION: No acute intracranial abnormality. No abnormal enhancement. Global atrophy and white matter changes consistent with small-vesselischemic disease. THIS IS AN ELECTRONICALLY VERIFIED FINAL REPORT 08/25/2024 1:49 AM - Electronically signed by Katina SKY T: Report ID: [id number] Reading Location: [id number] us Rachel Duenas Valentina [employer] IMG CT PROCEDUR ES Final Result * Critical Care (08/24/2024 10:19 PM CDT) Narrative Harjit Levy MD - 08/24/2024 10:19 PM CDT Harjit Levy MD 08/25/2024 2:12 AM Critical Care Performed by: Harjit Levy MD Authorized by: Harjit Levy MD CRITICAL CARE: Team: [facility] Shift: PM Level of Billing: Critical Care My time spent with this patient was 33 minutes: Critical Provider Statement: I have seen and examined the patient on this day of service. I have reviewed and confirmed the history, physical exam, laboratory and radiologic data as documented in the signed ICU note. I have reviewed and discussed my treatment plan with the ICU team and other medical/service loss control consultant staff, making frequent assessments and decisions regarding this patient's complex medical care. Critical Care time was exclusive of time spent performing separately billed procedures, treating other patients, and teaching. This time was in addition to and separate from critical care provided by other practitioners in my group on this day of service. Critical Care was necessary to treat or prevent imminent or life-threatening deterioration of the following conditions: Encephalopathy/altered mental status Acute hypoxic respiratory failure This time was spent by me doing the following: Active titration of continuous sedation Invasive ventilator management, reassessment, and titration Review of prior or current culture/gram stain results and Empiric broad coverage antibiotics I spent time reviewing and interpreting data from bedside monitors, laboratory results, and imaging us Harjit Levy MD IN CLINIC/BEDSIDE ORDERABLES Final Result * POCT glucose (08/24/2024 6:39 PM CDT) Glucose, POC 100 70 - 199 mg/dL Blood 08/24/2024 6:39 PM CDT 08/24/2024 6:39 PM CDT us Ilana Houston DO LAB POCT ORDERABLES - DE VICE Final Result Performing Organization Address City/[facility] Co de Phone Number ANTONIETTA[address] [address] * POCT glucose (08/24/2024 4:41 PM CDT) [facility] Glucose, POC 71 70 - 199 mg/dL Glucose comment 1 RN/MD Notified [facility] Blood 08/24/2024 4:41 PM CDT 08/24/2024 4:41 PM CDT us Ilana Houston DO LAB POCT ORDERABLES - DE VICE Final Result Performing Organization Address [facility] de Phone Number [address] [address] * (ABNORMAL) Copper, serum (08/24/2024 2:56 PM CDT) [facility] Copper 153(H) 73 - 129 mcg/dL [facility] Comment: ADDITIONAL INFORMATION This test was developed and its performance characteristics determined by [facility] in a manner consistent with CLIA requirements. This test has not been cleared or approved by the U.S. Food and Drug Administration. Test Performed by: [facility] [id number] [place] [address] Pattern Checker: Henry Radford Ph.D.; CLIA# [id number] Blood 08/24/2024 2:56 PM CDT 08/24/2024 3:08 PM CDT us Viky KIMBLE LAB BLOOD ORDERABLES Final Result Performing Organization Address [facility] Co de Phone Number [address] [address] [place] ref [facility] * RPR Blood (08/24/2024 2:56 PM CDT) RPR Nonreactive Nonreactive Comment:Testing performed by : [facility], [address] [place] [address] Blood 08/24/2024 2:56 PM CDT 08/24/2024 5:46 PM CDT Viky KIMBLE LAB MICROBIOLOGY - GENERAL ORDERABLES Final Result Performing Organization Address [facility] Co de Phone Number [address] [place] [address] * TSH (08/24/2024 2:56 PM CDT) [facility] Thyroid Stimulating Hormone 0.35 0.30 - 4.20 mcIUnit/mL Blood 08/24/2024 2:56 PM CDT 08/24/2024 3:08 PM CDT Viky KIMBLE LAB BLOOD ORDERABLES Final Result Performing Organization Address [facility] de Phone Number [address] [place] [address] * T4, free (08/24/2024 2:56 PM CDT) [facility] Free T4 1.25 0.90 - 1.70 ng/dL Blood 08/24/2024 2:56 PM CDT 08/24/2024 3:08 PM CDT Viky KIMBLE LAB BLOOD ORDERABLES Final Result Performing Organization Address [facility] de Phone Number [address] [address] * (ABNORMAL) Vitamin B1 (08/24/2024 2:56 PM CDT) [facility] Thiamine (Vit B1) 67(L) 70 - 180 nmol/L [place] [facility] Comment: ADDITIONAL INFORMATION This test was developed and its performance characteristics determined by [facility] in a manner consistent with CLIA requirements. This test has not been cleared or approved by the U.S. Food and Drug Administration. Test Performed by: [facility] - [facility] [address] [place] [address] Pattern Checker: Henry Radford Ph.D.; CLIA# [id number] Blood 08/24/2024 2:56 PM CDT 08/24/2024 3:09 PM CDT Viky KIMBLE LAB BLOOD ORDERABLES Final Result Performing Organization Address [facility] Co de Phone Number DARA [address] [place] [address] [facility] * Vitamin B12 (08/24/2024 2:56 PM CDT) Vitamin B12 1,226 230 - 1,250 pg/mL Blood 08/24/2024 2:56 PM CDT 08/24/2024 3:08 PM CDT Viky KIMBLE LAB BLOOD ORDERABLES Final Result Performing Organization Address [facility] de Phone Number DARA [address] [address] * Ammonia (08/24/2024 2:56 PM CDT) Ammonia 24 <=50 mcmol/L Comment: Please note on 09/29/2023 the unit of measure changed from mcg/dL to mcmol/L. Current Interpretive Data was last revised on 2023. Blood 08/24/2024 2:56 PM CDT 08/24/2024 3:01 PM CDT Viky KIMBLE LAB BLOOD ORDERABLES Final Result Performing Organization Address [facility] Co de Phone Number DARA [address] [address] * POCT glucose (08/24/2024 12:06 PM CDT) Glucose, POC 79 70 - 199 mg/dL Blood 08/24/2024 12:0 6 PM CDT 08/24/2024 12:06 PM CDT us Ilana Houston DO LAB POCT ORDERABLES - DE VICE Final Result DARA [address] [address] * POCT glucose (08/24/2024 10:16 AM CDT) Glucose, POC 80 70 - 199 mg/dL Glucose comment 1 RN/MD Notified ANTONIETTAELLEN Blood 08/24/2024 10:1 6 AM CDT 08/24/2024 10:16 AM CDT us Ilana Houston DO LAB POCT ORDERABLES - DE VICE Final Result DARA [address] [address] * POCT glucose (08/24/2024 8:51 AM CDT) Glucose, POC 70 70 - 199 mg/dL Glucose comment 1 RN/MD Notified DARA Blood 08/24/2024 8:51 AM CDT 08/24/2024 8:51 AM CDT us Ilana Houston DO LAB POCT ORDERABLES - DE VICE Final Result ANTONIETTA[address] [address] * Critical Care (08/24/2024 7:20 AM CDT) Narrative Ilana Houston DO - 08/24/2024 7:20 AM CDT Ilana Houston, 08/24/2024 5:34 PM Critical Care Performed by: Rachel Montgomery NP Authorized by: Rachel Montgomery NP CRITICAL CARE: Team: Tiffanie Shift: AM Level of Billing: Critical Care My time spent with this patient was 75 minutes: Critical Provider Statement: I have seen and examined the patient on this day of service. I have reviewed and confirmed the history, physical exam, laboratory and radiologic data as documented in the signed ICU note. I have reviewed and discussed my treatment plan with the ICU team and other medical/service loss control consultant staff, making frequent assessments and decisions regarding this patient's complex medical care. Critical Care time was exclusive of time spent performing separately billed procedures, treating other patients, and teaching. This time was in addition to and separate from critical care provided by other practitioners in my group on this day of service. Critical Care was necessary to treat or prevent imminent or life-threatening deterioration of the following conditions: Acute pain/acute postoperative pain and Agitation requiring sedation Acute hypoxic respiratory failure This time was spent by me doing the following: Serial bedside patient exams and Serial laboratory checks Frequent neurologic exams, Acute pain control and Active titration of continuous sedation Active and frequent reassessment of respiratory status and oxygen requirements and Invasive ventilator management, reassessment, and titration Enteral tube feeding management Empiric broad coverage antibiotics, Review of prior or current culture/gram stain results and Obtaining appropriate cultures I spent time reviewing and interpreting data from bedside monitors, laboratory results, and imaging, I spent time discussing the management of this critically ill patient with consultants and the medical staff, I spent time documenting in the medical record, I spent time talking to this patient's relatives to obtain additional medical history due to patient's inabililty to provide history and I spent time talking to this patient's surrogate decision maker to determine treatment plans due to patient's inability to participate in decision making Rachel Montgomery NP IN CLINIC/BEDSI DE ORDERABLES Final Result * (ABNORMAL) Reflex Hepatitis B Surface Antigen, Confirmation (08/24/2024 7:20 AM CDT) HepBsAg confirm Reactive( A) Non-React reyna Comment:Auto confirmation pe rformed Blood 08/24/2024 7:20 AM CDT 08/24/2024 7:36 AM CDT us Joaquim Nguyễn MD LAB BLOOD ORDERABLES Final Resu lt Performing Organization Address City/[facility]/ZIP Co de Phone Number DARA [address] [address] * Hepatitis B surface antibody (immune status) Blood (08/24/2024 7:20 AM CDT) Pathologist [facility] HBsAb (immune status) Nonreactive Comment: Interpretive Data Nonreactive: This result is consistent with a lack of immunity to Hepatitis B Virus when used in the setting of routine screening. Equivocal: The immune status of the individual should be further assessed, if appropriate, after consideration of clinical status, risk factors, and additional diagnostic information. Reactive: This result is consistent with immunity to Hepatitis B Virus when used in the setting of routine screening. Current interpretive data was last revised on 19. HBsAb (immune status) index >1,000.0 mIUnits/m L ANTONIETTAELLEN Blood 08/24/2024 7:20 AM CDT 08/24/2024 7:36 AM CDT Joaquim Nguyễn MD LAB MICROBIOLOGY - GENERAL ORDE BOBLES Edited Result - Final Performing Organization Address City/[facility] Co de Phone Number DARA [facility] [place] [address] * (ABNORMAL) Hepatitis B Surface Antigen Blood (08/24/2024 7:20 AM CDT) Pathologist [facility] HepBsAg Reactive( A) Nonreactive Comment:HBV surface antigen reactivity is presumptive evidence of HBV infection. Confirmatory testing automatically performed to determine infection status. Current interpretive data was last revised on 22 Blood 08/24/2024 7:20 AM CDT 08/24/2024 7:36 AM CDT Joaquim Nguyễn MD LAB MICROBIOLOGY - GENERAL ORDE RABLES Final Result Performing Organization Address [facility] de Phone Number DARA [address] [place] [address] * (ABNORMAL) eGFR (08/24/2024 6:18 AM CDT) Pathologist [facility] eGFR 9(L) >=60 mL/min/1. 73 m2 Comment: Interpretive Data [...] interpretive data was last reviewed 2021. Blood 08/24/2024 6:18 AM CDT 08/24/2024 6:24 AM CDT Isidro Daigle MD LAB BLOOD ORDERABLES Final R esult Performing Organization Address City/[facility] Co de Phone Number DARA [address] Department [place] [address] * (ABNORMAL) Differential, auto (08/24/2024 6:18 AM CDT) Pathologist [facility] Neutrophil abs 2.20 1.50 - 6.50 K/cumm Imm gran abs 0.02 0.00 - 0.10 K/cumm [facility] Lymphocyte abs 0.53(L) 0.80 - 3.30 K/cumm [facility] Monocyte abs 0.57 0.20 - 0.80 K/cumm [facility] Eosinophil abs 0.41 0.00 - 0.50 K/cumm [facility] Basophil abs 0.02 0.00 - 0.10 K/cumm [facility] Neutrophil pct 58.8 % [facility] Comment: Interpretive Data Percent cell count reference ranges are not reported, since discordance with absolute values may lead to misinterpretation of CBC data. Current Interpretive Data was last revised on 2017. Imm gran pct 0.5 % [facility] Comment: Interpretive Data Percent cell count reference ranges are not reported, since discordance with absolute values may lead to misinterpretation of CBC data. Current Interpretive Data was last revised on 2017. Lymphocyte pct 14.1 % [facility] Comment: Interpretive Data Percent cell count reference ranges are not reported, since discordance with absolute values may lead to misinterpretation of CBC data. Current Interpretive Data was last revised on 2017. Monocyte pct 15.2 % [facility] Comment: Interpretive Data Percent cell count reference ranges are not reported, since discordance with absolute values may lead to misinterpretation of CBC data. Current Interpretive Data was last revised on 2017. Eosinophil pct 10.9 % [facility] Comment: Interpretive Data Percent cell count reference ranges are not reported, since discordance with absolute values may lead to misinterpretation of CBC data. Current Interpretive Data was last revised on 2017. Basophil pct 0.5 % [facility] Comment: Interpretive Data Percent cell count reference ranges are not reported, since discordance with absolute values may lead to misinterpretation of CBC data. Current Interpretive Data was last revised on 2017. Blood 08/24/2024 6:18 AM CDT 08/24/2024 6:24 AM CDT us Isidro Daigle MD LAB BLOOD ORDERABLES Final R esult DARA [facility] [address] [facility] Department [place] [address] * (ABNORMAL) CBC with auto differential (08/24/2024 6:18 AM CDT) [facility] WBC 3.75(L) 3.80 - 9.90 K/cumm Hgb 10.1(L) 13.0 - 17.5 g/dL [facility] Hct 32.8(L) 38.9 - 50.3 % [facility] Plt 64(L) 150 - 400 K/cumm [facility] MPV 10.8 9.1 - 12.3 fL [facility] RBC 3.30(L) 4.30 - 5.80 M/cumm [facility] MCV 99.4(H) 81.3 - 96.4 fL [facility] MCH 30.6 27.1 - 33.3 pg [facility] MCHC 30.8(L) 32.3 - 35.7 g/dL [facility] RDW CV 18.8(H) 11.1 - 14.9 % [facility] RDW SD 68.8(H) 35.7 - 48.1 fL [facility] NRBC abs 0.00 0.00 - 0.01 K/cumm [facility] Blood 08/24/2024 6:18 AM CDT 08/24/2024 6:24 AM CDT us Isidro Daigle MD LAB BLOOD ORDERABLES Final R esult Performing Organization Address City/[facility]/ZIP Co de Phone Number [address] [employer] [place] [address] * (ABNORMAL) Phosphorus (08/24/2024 6:18 AM CDT) [facility] Phosphorus, pl 5.1(H) 2.3 - 4.5 mg/dL Blood 08/24/2024 6:18 AM CDT 08/24/2024 6:24 AM CDT us Ilana Houston DO LAB BLOOD ORDERABLES Fin al Result Performing Organization Address City/[facility] Co de Phone Number [address] [place] [address] * Magnesium (08/24/2024 6:18 AM CDT) Pathologist [facility] Magnesium 2.1 1.4 - 2.5 mg/dL Blood 08/24/2024 6:18 AM CDT 08/24/2024 6:24 AM CDT Ilana Mustafatalat MENJIVAR LAB BLOOD ORDERABLES Fin al Result Performing Organization Address [facility] Co de Phone Number [address] [place] [address] * Vancomycin level random (08/24/2024 6:18 AM CDT) [facility] Vancomycin random 20.6 mcg/mL Comment: Interpretive Data No reference ranges have been established for random drug levels. Current Interpretive Data was last revised on 2020. Blood 08/24/2024 6:18 AM CDT 08/24/2024 6:24 AM CDT Rachel Montgomery NP LAB BLOOD ORDER SARAH Final Result Performing Organization Address [facility] Co de Phone Number [address] [address] * (ABNORMAL) Comprehensive metabolic panel (08/24/2024 6:18 AM CDT) [facility] Sodium 142 135 - 145 mmol/L Potassium, pl 4.4 3.3 - 4.9 mmol/L [facility] Chloride 102 97 - 110 mmol/L [facility] CO2 27 22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 to misinterpretation of CBC data. Current Interpretive Data was last revised on 2017. Eosinophil pct 8.0 % [facility] Comment: Interpretive Data Percent cell count reference ranges are not reported, since discordance with absolute values may lead to misinterpretation of CBC data. Current Interpretive Data was last revised on 2017. Basophil pct 0.5 % [facility] Comment: Interpretive Data Percent cell count reference ranges are not reported, since discordance with absolute values may lead to misinterpretation of CBC data. Current Interpretive Data was last revised on 2017. Blood 08/23/2024 4:10 PM CDT 08/23/2024 4:59 PM CDT Chelo Sheldon LAB BLOOD ORDERABLES Final Result Performing Organization Address [facility]/ZIP Co de Phone Number [address] [place] [address] * Calcium, ionized (08/23/2024 4:10 PM CDT) Pathologist [facility] Calcium, Ionized 4.54 4.50 - 5.10 mg/dL Blood 08/23/2024 4:10 PM CDT 08/23/2024 5:00 PM CDT Chelo Sheldon LAB BLOOD ORDERABLES Final Result Performing Organization Address City/[facility]/ZIP Co de Phone Number [address] [address] * (ABNORMAL) CBC with auto differential (08/23/2024 4:10 PM CDT) Pathologist [facility] WBC 4.02 3.80 - 9.90 K/cumm Hgb 10.5(L) 13.0 - 17.5 g/dL [facility] Hct 35.1(L) 38.9 - 50.3 % [facility] Plt 81(L) 150 - 400 K/cumm [facility] MPV 10.2 9.1 - 12.3 fL [facility] RBC 3.57(L) 4.30 - 5.80 M/cumm [facility] MCV 98.3(H) 81.3 - 96.4 fL [facility] MCH 29.4 27.1 - 33.3 pg [facility] MCHC 29.9(L) 32.3 - 35.7 g/dL [facility] RDW CV 18.9(H) 11.1 - 14.9 % [facility] RDW SD 69.2(H) 35.7 - 48.1 fL [facility] NRBC abs 0.00 0.00 - 0.01 K/cumm [facility] Blood 08/23/2024 4:10 PM CDT 08/23/2024 4:59 PM CDT Chelo Sheldon [employer] LAB BLOOD ORDERABLES Final Result Performing Organization Address City/[facility] Co de Phone Number [address] [place] [address] * ABO/Rh (08/23/2024 4:10 PM CDT) ABO/Rh O Positive Blood 08/23/2024 4:10 PM CDT 08/23/2024 4:58 PM CDT Narrative [facility] - 08/23/2024 5:35 PM CDT Has the patient had Daratumumab or Isatuximab in the past 6 months?->Unknown Chelo Sheldon [employer] LAB BLOOD BANK TEST O RDERABLES Final Result Performing Organization Address City/[facility]/ZIP Co de Phone Number [address] [employer] [place], [place] [id number] * Blood culture Blood (08/23/2024 4:10 PM CDT) Report Final Report: No growth Comment:Testing performed by : [facility], [address] [place]., [address] Blood 08/23/2024 4:10 PM CDT 08/23/2024 8:21 PM CDT Jayshree NORRIS - 08/28/2024 7:01 AM CDT Collection->Peripheral 1. Blood cultures are incubated for 4 days on a continuously monitored blood culture system. The first report of a negative culture is issued within 24 hours of receipt of the specimen in the laboratory. 2. Positive culture results are reported as soon as they are detected. 3. The most important factor for detection of microbes in the setting of bloodstream infection is the volume of blood submitted for culture. Failure to collect an optimal blood volume can result in false negative blood cultures. 4. For pediatric patients, the recommended blood volume to collect follows a weight based strategy. See the electronic test catalog for collection instructions. 5. For positive blood cultures, a rapid molecular test may be performed for organism identification using the [employer] blood culture identification panel for gram positive (BCID-GP) and gram negative (BCID-GN) organisms. This nucleic acid amplification test detects microbial DNA in positive blood culture broth. This assay has been cleared by the [place] Food and Drug Administration and its performance characteristics have been verified by the [facility]. For questions about this culture, contact the Microbiology Laboratory at [phone]. Interpretive data was last revised on 24. Chelo Sheldon NP LAB MICROBIOLOGY - [facility] ORDERABLES Final Result DARA NORRIS [address] [facility] Department [place] [address] * (ABNORMAL) T-helper cells (CD4) count (08/23/2024 4:10 PM CDT) [facility] CD4 pct 13(L) 31 - 64 % Comment:Testing performed by : [facility], [address] [facility], [place]., [address] CD4 Absolute 65(L) 365 - 1,294 cells/mcL DARA NORRIS Comment:Testing performed by : [facility], [address] [facility], [place]., [address] Blood 08/23/2024 4:10 PM CDT 08/23/2024 8:01 PM CDT Chelo Sheldon [employer] LAB BLOOD ORDERABLES Final Result [address] [place] [address] * Antibody screen (08/23/2024 4:10 PM CDT) [place], indirect, Gel Interpretation Negative ABSC Blood 08/23/2024 4:10 PM CDT 08/23/2024 4:58 PM CDT Narrative DARA - 08/23/2024 5:35 PM CDT Has the patient had Daratumumab or Isatuximab in the past 6 months?->Unknown Chelo Sheldon NP LAB BLOOD BANK TEST O RDERABLES Final Result Performing Organization Address [facility]/ZIP Co de Phone Number [address] [place] [address] * Phosphorus (08/23/2024 4:10 PM CDT) Phosphorus, pl 3.5 2.3 - 4.5 mg/dL Blood 08/23/2024 4:10 PM CDT 08/23/2024 5:01 PM CDT Chelo Sheldon [employer] LAB BLOOD ORDERABLES Final Result [address] [place] [address] * Magnesium (08/23/2024 4:10 PM CDT) Pathologist [facility] Magnesium 2.1 1.4 - 2.5 mg/dL Blood 08/23/2024 4:1 0 PM CDT 08/23/2024 5:01 PM CDT Chelo Sheldon NP LAB BLOOD ORDERABLES Final Result DARA [address] [facility] Department [place] [address] * (ABNORMAL) Comprehensive metabolic panel (08/23/2024 4:10 PM CDT) Sodium 144 135 - 145 mmol/L Potassium, pl 4.0 3.3 - 4.9 mmol/L [facility] Chloride 103 97 - 110 mmol/L [facility] CO2 28 22 - 32 mmol/L [facility] Anion gap 13 2 - 15 mmol/L [facility] BUN 15 6 - 25 mg/dL [facility] Creatinine 4.95(H) 0.80 - 1.30 mg/dL [facility] Glucose 78 70 - 199 mg/dL [facility] Comment: Interpretive Data Fasting glucose >/= 126 [...] interpretive data was last revised 2022. Calcium 8.9 8.5 - 10.3 mg/dL [facility] Bilirubin, total 0.4 0.1 - 1.2 mg/dL [facility] Protein, pl 8.3 6.5 - 8.5 g/dL [facility] Albumin 4.1 3.5 - 5.0 g/dL [facility] Alk phos 66 40 - 130 Units/L [facility] ALT 29 7 - 55 Units/L [facility] AST 36 10 - 50 Units/L [facility] Blood 08/23/2024 4:10 PM CDT 08/23/2024 5:01 PM CDT Chelolesa Sheldon NP LAB BLOOD ORDERABLES Final Result [facility] [address] [facility] Department [place] [address] * X-ray chest 1 view (Portable) (08/23/2024 4:08 PM CDT) Anatomical Region Laterality Modality Body, Chest N/A Computed Radiogr aphy 08/23/2024 4:35 PM CDT Narrative 08/23/2024 4:41 PM CDT EXAM DESCRIPTION: XR CHEST 1 VIEW REASON FOR STUDY: ICU pt, newly admitted Intubation Ett placement Ngt placement TECHNIQUE: 1 radiographic view(s) of the chest. COMPARISON: 08/01/2024 FINDINGS: LUNGS: No focal opacity, pleural effusion, or pneumothorax. HEART/MEDIASTINUM: Cardiac silhouette normal in size. Mediastinal and hilar contours appear normal. LINES/TUBES: An endotracheal tube terminates approximately 7 cm above the heather. A right-sided central venous catheter is in stable position, with the tip projecting over the lower SVC. An enteric tube courses beyond the inferior field of view. BONES: No acute osseous abnormality. IMPRESSION: No acute cardiopulmonary abnormality. The endotracheal tube appears to be 7 cm superior to the heather. Advancement is recommended. THIS IS AN ELECTRONICALLY VERIFIED FINAL REPORT 08/23/2024 4:41 PM - Electronically signed by Kwan Caceres M.D. KR T: Report ID: [id number] Reading Location: [id number] Procedure Note Kwan Caceres MD - 08/23/2024 EXAM DESCRIPTION: XR CHEST 1 VIEW REASON FOR STUDY: ICU pt, newly admitted Intubation Ett placement Ngt placement TECHNIQUE: 1 radiographic view(s) of the chest. COMPARISON: 08/01/2024 FINDINGS: LUNGS: No focal opacity, pleural effusion, or pneumothorax. HEART/MEDIASTINUM: Cardiac silhouette normal in size. Mediastinal andhilar contours appear normal. LINES/TUBES: An endotracheal tube terminates approximately 7 cm above the heather. A right-sided central venous catheter is in stable position, withthe tip projecting over the lower SVC. An enteric tube courses beyond the inferior field of view. BONES: No acute osseous abnormality. IMPRESSION: No acute cardiopulmonary abnormality. The endotracheal tube appears to be 7 cm superior to the heather.Advancement is recommended. THIS IS AN ELECTRONICALLY VERIFIED FINAL REPORT 08/23/2024 4:41 PM - Electronically signed by Kwan RAPP T: Report ID: [id number] Reading Location: [id number] us Chelo Sheldon [employer] IMG XR PROCEDURES Fin al Result * XR Abdomen AP 1 View (Portable) (08/23/2024 4:08 PM CDT) Anatomical Region Laterality Modality Body, Abdomen N/A Computed Radiogr aphy 08/23/2024 4:41 PM CDT Narrative 08/23/2024 4:45 PM CDT EXAM DESCRIPTION: XR ABDOMEN AP 1 VIEW REASON FOR STUDY: ICU pt, newly admitted Intubation Ett placement Ngt placement TECHNIQUE: Single radiographic view of the abdomen. COMPARISON: 04/14/2024 FINDINGS: An enteric tube tip projects over the expected location of the stomach, with the side port well below the level of the GE junction. IMPRESSION: The enteric tube appears to be appropriately positioned. THIS IS AN ELECTRONICALLY VERIFIED FINAL REPORT 08/23/2024 4:45 PM - Electronically signed by Kwan RAPP T: Report ID: [id number] Reading Location: [id number] Procedure Note Kwan Caceres MD - 08/23/2024 EXAM DESCRIPTION: XR ABDOMEN AP 1 VIEW REASON FOR STUDY: ICU pt, newly admitted Intubation Ett placement Ngt placement TECHNIQUE: Single radiographic view of the abdomen. COMPARISON: 04/14/2024 FINDINGS: An enteric tube tip projects over the expected location of the stomach, with the side port well below the level of the GE junction. IMPRESSION: The enteric tube appears to be appropriately positioned. THIS IS AN ELECTRONICALLY VERIFIED FINAL REPORT 08/23/2024 4:45 PM - Electronically signed by Kwan RAPP T: Report ID: [id number] Reading Location: [place] [address] us Chelo Sheldon [employer] IMG XR PROCEDURES Fin al Result * Critical Care (08/23/2024 3:45 PM CDT) Narrative Celso Ilana Haylee, - 08/23/2024 3:45 PM CDT Jerry Houstonlifannie LemonsDO fannie 08/24/2024 5:33 PM Critical Care Performed by: Rachel Montgomery NP Authorized by: Rachel Montgomery NP CRITICAL CARE: Team: [facility] Shift: AM Level of Billing: Critical Care My time spent with this patient was 120 minutes: Critical Provider Statement: I have seen and examined the patient on this day of service. I have reviewed and confirmed the history, physical exam, laboratory and radiologic data as documented in the signed ICU note. I have reviewed and discussed my treatment plan with the ICU team and other medical/service loss control consultant staff, making frequent assessments and decisions regarding this patient's complex medical care. Critical Care time was exclusive of time spent performing separately billed procedures, treating other patients, and teaching. This time was in addition to and separate from critical care provided by other practitioners in my group on this day of service. Critical Care was necessary to treat or prevent imminent or life-threatening deterioration of the following conditions: Encephalopathy/altered mental status Acute respiratory insufficiency Protein-calorie malnutrition Sepsis This time was spent by me doing the following: Serial bedside patient exams and Serial laboratory checks Active titration of continuous sedation, Acute pain control and Frequent neurologic exams Active and frequent reassessment of respiratory status and oxygen requirements and Invasive ventilator management, reassessment, and titration Active and frequent monitoring of intake/output and volumen status and Management of gastrointestinal bleed Empiric broad coverage antibiotics, Obtaining appropriate cultures and Review of prior or current culture/gram stain results I spent time reviewing and interpreting data from bedside monitors, laboratory results, and imaging, I spent time discussing the management of this critically ill patient with consultants and the medical staff, I spent time documenting in the medical record, I spent time talking to this patient's relatives to obtain additional medical history due to patient's inabililty to provide history and I spent time talking to this patient's surrogate decision maker to determine treatment plans due to patient's inability to participate in decision making Rachel Duenas Valentina SUPERVISOR [employer] [facility]/BEDSI DE ORDERABLES Final Result * CT Chest Abdomen Pelvis W Contrast (08/17/2024 3:10 PM CDT) Anatomical Region Laterality Modality Body N/A Computed Tomogra phy 08/22/2024 3:19 PM CDT Narrative 08/22/2024 3:48 PM CDT EXAM DESCRIPTION: CT CHEST ABDOMEN PELVIS W CONTRAST REASON FOR STUDY: Anal cancer TECHNIQUE: CT scan of the chest, abdomen, and pelvis performed with intravenous and without oral contrast using helical scanning technique with dynamic intravenous contrast injection. Reconstructed coronal and sagittal MPR images reviewed. All images stored on PACS. Automated exposure control was used as a dose optimization technique for this examination. CONTRAST TYPE/DOSE: 100mL of IOVERSOL 350 MG IODINE/ML INTRAVENOUS SYRINGE injected via intravenous COMPARISON: CT abdomen pelvis 04/15/2024; PET-CT 11/18/2023 FINDINGS: CHEST LUNGS: Severe emphysematous changes to the lungs with biapical pleural-parenchymal scarring. Is also a large area of scarring in the right upper lobe. There is a trace left-sided pleural effusion and there is scarring and subsegmental atelectasis in the lung bases. No pneumothorax. There is a 6 mm solid nodule versus scarring in the right upper lobe on image 14. The central airways are patent. MEDIASTINUM/JAYJAY: There are calcified mediastinal granulomas. There is 1 mildly enlarged AP window lymph node measuring 10 mm in short axis (series 2, image 39). HEART: Heart size is top-normal. There is a small pericardial effusion which has slightly increased in size since 11/18/2023. there are multivessel coronary artery calcifications. VASCULATURE CHEST: Dilated ascending thoracic aorta measuring 4.4 cm. Thoracic aorta contains a moderate amount of calcified atherosclerotic plaque and is without dissection. AXILLA: There are several prominent but nonenlarged right axillary lymph nodes, appearing similar to the comparison exam. CHEST WALL: No masses. No subcutaneous air. HARDWARE/LINES/TUBES: Right-sided dialysis catheter with the tip at the superior cavoatrial junction. MUSCULOSKELETAL CHEST: There is no suspicious osseous lesion. ABDOMEN/PELVIS LIVER: Liver is enlarged measuring 18.7 cm in craniocaudad dimension. No hepatic lesions identified. GALLBLADDER: Mostly decompressed. No gallstones appreciated. BILE DUCTS: No intrahepatic or extrahepatic ductal dilatation. SPLEEN: Normal size. No focal lesions. PANCREAS: No identified cystic or solid masses. No significant calcifications. No adjacent inflammation or peripancreatic fluid collections. Pancreatic duct not dilated. ADRENALS: Normal. KIDNEYS/URINARY TRACT: Kidneys are atrophic. No renal lesion appreciated. No hydronephrosis or hydroureter. Urinary bladder is decompressed. GI: Stomach is unremarkable on CT. There are a few questionably thick-walled loops of jejunum in the left abdomen. No dilated loops of bowel appreciated. The appendix is not visualized. There has been resolution of the previously noted abscess in the right lower quadrant. There is a moderate amount of stool throughout the colon, predominantly in the cecum. There is rectal wall thickening which is not well evaluated on CT and likely corresponds with the patient's known anal cancer. PERITONEUM: No pneumoperitoneum or free fluid identified. Previously noted right lower quadrant abscess appears to have resolved. There remains some stranding in the right lower quadrant mesentery, likely sequela of prior infection/inflammatory change. However recommend attention on follow-up to exclude peritoneal carcinomatosis. RETROPERITONEUM: No mass or adenopathy. REPRODUCTIVE: The prostate is enlarged. VASCULATURE ABDOMEN: Kguslfte-wo-ojvvc amount of atherosclerotic plaque in the aorta and iliac vessels without aneurysm. MUSCULOSKELETAL ABDOMEN PELVIS: There is no suspicious osseous lesion. There are multilevel degenerative changes of the lumbar spine. OTHER: There is a 1.4 x 0.9 x 0.9 cm metallic density in the subcutaneous soft tissues of the left supragluteal region causing streak artifact. IMPRESSION: 1. Rectal wall thickening is not well evaluated on CT and likely corresponds with the patient's known anal cancer. 2. 6 mm solid nodule versus scarring in the right upper lobe. Recommend attention on follow-up. 3. Mildly enlarged AP window lymph node measuring 10 mm in short axis. Recommend attention on follow-up. 4. There are a few questionably thick-walled loops of jejunum in the left abdomen. This is nonspecific and could be related to enteritis. 5. Small pericardial effusion has slightly increased in size since 11/18/2023. 6. Trace left-sided pleural effusion. 7. Previously noted right lower quadrant abscess appears to have resolved. There remains some stranding in the right lower quadrant mesentery, likely sequela of prior infection/inflammatory change. However recommend attention on follow-up to exclude peritoneal carcinomatosis. 8. Additional findings as above THIS IS AN ELECTRONICALLY VERIFIED FINAL REPORT 08/22/2024 3:48 PM - Electronically signed by Kerwin Freedman M.D. AM: AM Report ID: [id number] Reading Location: [id number] Procedure Note Kerwin Freedman MD - 08/22/2024 EXAM DESCRIPTION: CT CHEST ABDOMEN PELVIS W CONTRAST REASON FOR STUDY: Anal cancer TECHNIQUE: CT scan of the chest, abdomen, and pelvis performed with intravenous and without oral contrast using helical scanning techniquewith dynamic intravenous contrast injection. Reconstructed coronal and sagittalMPR images reviewed. All images stored on PACS. Automated exposure control was used as a dose optimization technique for this examination. CONTRAST TYPE/DOSE: 100mL of IOVERSOL 350 MG IODINE/ML INTRAVENOUS SYRINGE injected via intravenous COMPARISON: CT abdomen pelvis 04/15/2024; PET-CT 11/18/2023 FINDINGS: CHEST LUNGS: Severe emphysematous changes to the lungs with biapical pleural-parenchymal scarring. Is also a large area of scarring in theright upper lobe. There is a trace left-sided pleural effusion and there is scarring and subsegmental atelectasis in the lung bases. No pneumothorax. There is a 6 mm solid nodule versus scarring in the right upper lobe onimage 14. The central airways are patent. MEDIASTINUM/JAYJAY: There are calcified mediastinal granulomas. There is1 mildly enlarged AP window lymph node measuring 10 mm in short axis (series2, image 39). HEART: Heart size is top-normal. There is a small pericardial effusion which has slightly increased in size since 11/18/2023. there aremultivessel coronary artery calcifications. VASCULATURE CHEST: Dilated ascending thoracic aorta measuring 4.4 cm. Thoracic aorta contains a moderate amount of calcified atheroscleroticplaque and is without dissection. AXILLA: There are several prominent but nonenlarged right axillary lymph nodes, appearing similar to the comparison exam. CHEST WALL: No masses. No subcutaneous air. HARDWARE/LINES/TUBES: Right-sided dialysis catheter with the tip at the superior cavoatrial junction. MUSCULOSKELETAL CHEST: There is no suspicious osseous lesion. ABDOMEN/PELVIS LIVER: Liver is enlarged measuring 18.7 cm in craniocaudad dimension.No hepatic lesions identified. GALLBLADDER: Mostly decompressed. No gallstones appreciated. BILE DUCTS: No intrahepatic or extrahepatic ductal dilatation. SPLEEN: Normal size. No focal lesions. PANCREAS: No identified cystic or solid masses. No significant calcifications. No adjacent inflammation or peripancreatic fluidcollections. Pancreatic duct not dilated. ADRENALS: Normal. KIDNEYS/URINARY TRACT: Kidneys are atrophic. No renal lesionappreciated. No hydronephrosis or hydroureter. Urinary bladder is decompressed. GI: Stomach is unremarkable on CT. There are a few questionably thick-walled loops of jejunum in the left abdomen. No dilated loops ofbowel appreciated. The appendix is not visualized. There has been resolutionof the previously noted abscess in the right lower quadrant. There is amoderate amount of stool throughout the colon, predominantly in the cecum. Thereis rectal wall thickening which is not well evaluated on CT and likely corresponds with the patient's known anal cancer. PERITONEUM: No pneumoperitoneum or free fluid identified. Previouslynoted right lower quadrant abscess appears to have resolved. There remains some stranding in the right lower quadrant mesentery, likely sequela of prior infection/inflammatory change. However recommend attention on follow-upto exclude peritoneal carcinomatosis. RETROPERITONEUM: No mass or adenopathy. REPRODUCTIVE: The prostate is enlarged. VASCULATURE ABDOMEN: Gfmoyuqn-bq-wodqw amount of atherosclerotic plaquein the aorta and iliac vessels without aneurysm. MUSCULOSKELETAL ABDOMEN PELVIS: There is no suspicious osseous lesion. There are multilevel degenerative changes of the lumbar spine. OTHER: There is a 1.4 x 0.9 x 0.9 cm metallic density in thesubcutaneous soft tissues of the left supragluteal region causing streak artifact. IMPRESSION: 1. Rectal wall thickening is not well evaluated on CT andlikely corresponds with the patient's known anal cancer. 2. 6 mm solid nodule versus scarring in the right upper lobe. Recommend attention on follow-up. 3. Mildly enlarged AP window lymph node measuring 10 mm in short axis. Recommend attention on follow-up. 4. There are a few questionably thick-walled loops of jejunum in the left abdomen. This is nonspecific and could be related to enteritis. 5. Small pericardial effusion has slightly increased in size since11/18/2023. 6. Trace left-sided pleural effusion. 7. Previously noted right lower quadrant abscess appears to haveresolved. There remains some stranding in the right lower quadrant mesentery, likely sequela of prior infection/inflammatory change. However recommendattention on follow-up to exclude peritoneal carcinomatosis. 8. Additional findings as above THIS IS AN ELECTRONICALLY VERIFIED FINAL REPORT 08/22/2024 3:48 PM - Electronically signed by Kerwin Freedman M.D. AM: AM Report ID: [id number] Reading Location: [id number] [facility] Osmar Brooks MD IMG CT PROCEDURES Fi nal Result * XR Chest PA Lateral 2 Views [...] Alf Rios M.D. MZ T: Report ID: [id number] Reading Location: [id number] Narrative 08/01/2024 10:02 AM CDT EXAM DESCRIPTION: [...] Alf Rios M.D. MZ T: Report ID: [id number] Reading Location: [id number] Procedure Note Alf Rios MD - 08/01/2024 [...] Alf Rios M.D. MZ T: Report ID: [id number] Reading Location: [place] [address] Merrick Aguirre NP IMG XR PROCEDURES Edited Result - Final * (ABNORMAL) Influenza A/B, RSV, and COVID-19 PCR Nasopharyngeal (07/28/2024 6:01 PM IN SCHOOL SUSPENSION COORDINATOR) Pathologist [facility] COVID-19 RNA Negative Negative Influenza A RNA Negative Negative [facility] Influenza B RNA Negative Negative [facility] RSV RNA Positive(A) Negative [facility] Comment: Interpretive data: Testing performed by [facility]. This test is performed using the [employer] Xpert Xpress CoV-2/Flu/RSV plus assay. This is a multiplex, real-time reverse transcriptase PCR assay intended for the qualitative detection of nucleic acid from SARS-CoV-2, influenza A, influenza B, and respiratory syncytial virus. This assay has been cleared by the [place] Food and Drug administration. The performance characteristics have been verified by the [facility]. Results must be considered in the clinical context, and a negative result does not rule out infection. Interpretive Data last revised 2023 Nasopharyngeal 07/28/2024 6: 01 PM IN SCHOOL SUSPENSION COORDINATOR 07/28/2024 11:48 PM IN SCHOOL SUSPENSION COORDINATOR Narrative [facility] - 07/29/2024 12:31 AM IN SCHOOL SUSPENSION COORDINATOR Is the Patient experiencing symptoms consistent with COVID?->Yes Reason for testing?->Symptomatic Known exposure to confirmed or suspected COVID-19 case?->No Merrick Aguirre NP LAB MICROBIOLOGY - GENERAL BLANK WEBB Final Result DARA [address] Department [place] [address] [place] * TB test, quantiferon gold (01/21/2024 10:15 AM CDT) [facility] Quantiferon TB Gold Negative Negative [facility] Comment: No interferon-gamma response to M. tuberculosis antigens was detected. Latent infection with M. tuberculosis is unlikely. A single negative result does not exclude infection with M. tuberculosis. In patients at high risk for M.tuberculosis infection, a second test should be considered in accordance with the 2017 ATS/IDSA/CDC Clinical Practice Guidelines for Diagnosis of Tuberculosis in Adults and Children [Lewinsohn DM et. al. Clin. Infect. Dis. 2017;64(2):111-115]. The reference range for the 'TB1 Ag minus Nil Result' and 'TB2 Ag minus Nil Result' is an Interferon-gamma level <0.35 IU/mL. TB-Nil 0.00 IUnits/mL CERNER TB2-Nil 0.01 IUnits/mL C[facility] Mitogen-Nil >10.00 IUnits/mL [facility]ER NIL 0.02 IUnits/mL [facility] Comment: Test Performed by: [facility] [address] [place] [address] Pattern Checker: Henry Radford Ph.D.; CLIA# [id number] Blood 01/21/2024 10:1 5 AM CDT 01/21/2024 10:35 AM CDT us Negrito Amaya MD LAB BLOOD ORDERABLES Trina sabiha Result Performing Organization Address City/State/[facility] Co de Phone Number [facility] [address] [facility] Department [place] [address] [facility] * (ABNORMAL) Hepatitis C antibody Blood (11/02/2023 8:16 PM CDT) [facility] Hep C Ab Reactive( A) Nonreactive [...] - GENERAL ORDERABLES Final Result DARA SCHWARTZ [address] Department [place] [address] * Lipid panel (11/02/2023 8:03 PM CDT) [...] BLOOD ORDERAB LES Final Result DARA SCHWARTZ [address] Department [place] [address] * (ABNORMAL) Hepatitis A antibody, total Blood (11/02/2023 7:48 PM CDT) Hep A total Reactive( A) Nonreactive Comment:Testing performed by : [facility], [address] [place]., [address] Blood 11/02/2023 7:48 PM CDT 11/03/2023 10:02 AM CDT Bhavesh Mariano MD LAB MICROBIOLOGY - GENERAL [place] [address] [address] Department [place] [address] * (ABNORMAL) Urinalysis reflex to microscopic and culture Urine (03/12/2023 1:13 AM CDT) Pathologist [facility] Color, ur Yellow Yellow Clarity, ur Clear Clear [facility] Specific gravity, ur 1.009 1.003 - 1.030 [facility] pH, urine 5.0 [facility] Comment: Interpretive Data U rine pH is affected by diet, medications, systemic acid-base disturbances, and renal tubular function. pH may affect urinary stone formation. For example, urine pH below 6.0 may help reduce the tendency for calcium phosphate stones and pH greater than 6.0 may reduce the tendency for uric acid stone formation. Source: [facility] Current Interpretive Data was last revised on 2017 Protein, ur ql 3+(A) Negative [facility] Glucose, ur ql Negative Negative [facility] Ketones, ur Negative Negative [facility] Bilirubin, ur Negative Negative [facility] Blood, ur 3+(A) Negative [facility] Urobilinogen, ur <2.0 <2.0 mg/dL [facility] Nitrite, ur Negative Negative [facility] Leukocyte esterase, ur 1+(A) Negative [facility] UA reflex comment Reflex to microscopic UA will be performed. [facility] Urine 03/12/2023 1:13 AM CDT 03/12/2023 1:27 AM CDT Trey Pritchett MD LAB MICROBIOLOGY - GENERAL O RDERABLES Final Result [facility] [address] [facility] Department [place] [address] from Last 3 Months or Most Recently Relevant to Health Maintenance Insurance [facility] MEDICARE ADVANTAGE [facility] MEDICARE ADVANTAGE IDPA IDPA [facility] MEDICARE ADVANTAGE Advance Directives For more information, please contact: [phone] Documents on File Type Date Recorded Patient Vise Hand Expl anation Power of Chief Order Dispatcher 06/23/2021 4:27 PM * Full Code (Latest Code Status on File) Date Activated Date Inactivated Comments 08/23/2024 3:44 PM 08/28/2024 11:28 PM * Full Code Date Activated Date Inactivated Comments 04/08/2024 11:08 AM 04/19/2024 10:02 PM * Full Code Date Activated Date Inactivated Comments 03/09/2024 9:05 AM 03/14/2024 10:25 PM * Full Code Date Activated Date Inactivated Comments 01/20/2024 9:29 PM 02/02/2024 4:33 PM * Full Code Date Activated Date Inactivated Comments 10/11/2023 1:01 AM 10/15/2023 11:27 PM Care Teams Lasting Machine Operator Relationship Specialty Start Date End Date No, Physician PCP - General 09/24/24 Matteo Brooks MD [address] [facility], [address] [address] Medical Oncologist/[facility] 03/31/23 eGrson Keith MD [address] [facility], [address] [address] Consulting Physician Nephrology 05/07/23 Cassie Márquez MD [address] [facility] [place] [address] Consulting Physician Family Medicine 06/25/23 Seth Henderson IV, MD [address] [place] [address] [phone] Consulting Physician General Surgery 10/21/23 Seth Henderson IV, MD [address] [place] [id number] Consulting Physician General Surgery 10/21/23 David Gorman MD [address] [place] [address] [phone] Radiation Oncologist Radiation Oncology 10/21/23 Blayne Sepulveda MD [address] [place] [address] [phone] Consulting Physician General Surgery 03/10/24 Gerson Forrester DO [address] [place] [address] [phone] Consulting Physician General Surgery 03/14/24 Teddy Hull MD [address] [place] [address] Consulting Physician Cardiology 09/22/24
--- OUTSIDE RECORDS SUMMARY | 2024-09-27 21:15 | XMS_ITS ---
Author Organization [facility] [address] Address [address] [place] [address] Care Team Providers Care Automotive Service Professional Name Role Phone Matteo Brooks MD Unavailable [phone] Gerson Keith MD Unavailable Cassie Márquez MD Unavailable Beatriz TO MD, Seth Vasquez Unavailable [phone] Beatriz TO MD, Lyman Lansing Unavailable David Gorman MD Unavailable [phone] Blayne Sepulveda MD Unavailable Gerson Forrester DO Unavailable Teddy Hull MD Unavailable [phone] No, Physician Primary Care Provider [phone] Active Problems Problem Noted Date Diagnosed Date Meningitis 08/23/2024 Muscle spasms of neck 08/15/2024 Chronic hepatitis B 07/11/2024 Assessment & Plan (07/17/2024 8:36 AM REDUCER): 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 [...] symptoms. Aortic ectasia 04/13/2018 Overview (07/28/2021): 06/16/2018 Dr. Dione JESUS CXR (08/03/2016) Aortic tortuosity, ectasia Last Assessment [...] saw urologist, Dr. Salas, and was given [facility]. No current complaints of urinary outlet syndrome. Last Assessment & Plan: Noted on recent renal ultrasound. Reports that he recently saw urologist, Dr. Salas, and was given [facility]. No current complaints of urinary outlet syndrome. [...] screening Assessment & Plan (07/28/2021 1:03 PM REDUCER): He has a history of chronic hep [...] Imdur and Losartan. He will see his stock cutter next week to discuss further changes in [...] controlled. He follows with Dr. Parham and stock cutter. No changes in medications today. Note that [...] Referral to infectious disease specialists at [facility] has been made, but apparently, they do [...] Referral to infectious disease specialists at 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 Full details of background history on prior notes (see my note from 11/02/2023. His girlfriend Radha is assisting him night time nanny for all his healthcare needs including giving [...] for drug interactions with ART. 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 Details of history on HPI. His girlfriend Radha is assisting him night time nanny for all his healthcare needs including giving [...] for drug interactions with ART. 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 Details of history on HPI. His girlfriend Radha is assisting him night time nanny for all his healthcare needs including giving [...] for drug interactions with ART. Recommended resource: https://www.hiv-druginteractions.org/schedule checker Assessment & Plan (10/17/2021 11:24 AM [...] BID + Prezcobix - Discussed adherence at [facility] - Cont bactrim for PJP [...] BID + Prezcobix - Discussed adherence at formerly [facility] - Cont bactrim for PJP prophylaxis - RTC in 4 weeks for close follow up - Discussed partner getting on PrEP; HIV test for partner today Assessment & Plan (07/28/2021 1:01 PM REDUCER): Mr. Salcedo is a 66 year old [...] 10:31 AM CDT): Receives HD MWF at [facility] in [facility], currently via RIJ tunneled catheter but undergoing planning for AV fistula creation. HD catheter today looks well without signs of infection. Elevated brain natriuretic p eptide (BNP) level 08/29/2023 11/03/2023 Troponin level elevated 08/29/2023 0606/2023 Urinary retention 08/29/2023 11/03/2023 Syncope 08/29/2023 11/03/2023 [...] Assessment & Plan: Recent long hospitalization at [facility] in [place], [place]. I have no records from said hospitalization. He continues to use home oxygen. He appears mildly dyspneic at rest, though his lung examination is presently normal. Pulse oximetry on portable oxygen was acceptable today. Consider referral to municipal engineer at a future visit. Home health referral [...] required. Assessment & Plan (07/28/2021 1:02 PM REDUCER): Unclear if chronic or cleared infection. Will check HCV today. AIDS (acquired immune deficiency syndrome) 04/09/2009 07/11/2024 Overview (05/18/2024): 04/25/2019 OV, Dr. Parham
--- OUTSIDE RECORDS SUMMARY | 2024-09-27 21:15 | XMS_ITS | Encounter Summary ---
Author Organization [facility] Address [address] [place] [address] Phone Care Team Providers Care Cigar Head Piercer Name Role Phone Josh Parham MD Primary Care Provider [phone] David Gorman MD Unavailable [phone] Matteo Brooks MD Unavailable + [phone] Gerson Keith MD Unavailable [phone] Cassie Márquez MD Unavailable Beatriz TO MD, Lyman Lansing Unavailable Beatriz TO MD, Lyman Lansing Unavailable [phone] David Gorman MD Unavailable [phone] Blayne Sepulveda MD Unavailable Gerson Forrester DO Unavailable [phone] Idris Sanchez MD Primary Care Provi simba Teddy Hull MD Unavailable [phone] No, Physician Primary Care Provider Encounter Details Date Type Department Care Team (Late st Contact Info) Description 09/06/2023 Conference of Physicians/Providers [facility] Physicians [facility] [address] [place] [address] Matteo Brooks MD [address] [facility] [address] [place] [address] Social History Tobacco Use Types Packs/Day Years Used Date Smoking Tobacco: Some Days Cigarettes 0.3 10 Smokeless Tobacco: Never Comments:Last cigarette 04/24 0 Alcohol Use Standard Drinks/Week Comments Not Currently 0 (1 standard drink = 0.6 oz pur e alcohol) [facility] Utilities Answer Date Recorded In [...] often do you attend chur ch or faith services? Never 08/30/2023 Do you belong to any clubs o r organizations such as restoration groups, unions, fraternal or athletic groups, or [...] in a halfway (including now)? No 08/30/2023 Personal Safety Answer Date Recorded Have you ever been in or are you currently in a harmful physical or emotional relationship or is someone making you feel afraid or unsafe? Denies 08/29/2023 Sex and Gender Information Value Date Recorded Sex Assigned at Not on file Legal Sex Male 11:35 AM SOLDERER DIPPER Gender Identity Not on file Sexual Orientation Not on file documented as of this encounter Progress Notes * Teodoro Zavaleta MD - 09/06/2023 11:59 PM CDT This patient was discussed at the [facility] Colorectal Tumor board. It was decided that this patient can be complete from a surgical standpoint and does not require any adjuvant therapy. The patient should be referred to a colorectal surgeon for anoscopic surveillance given his historyof anal SCC. Teodoro Zavaleta MD Cosigned by Matteo Brooks MD at 12/08/2023 3:37 PM CDT documented in this encounter Nursing Notes * Addis Uriarte, RN - 09/06/2023 11:59 PM CDT Error documented in this encounter Plan of Treatment Upcoming Encounters Date Type Department Care Team (Latest Contact Info) Description 10/05/2024 7:30 AM CDT Hospital Encounter [facility] [place] [address] [place] [id number] Seth Henderson IV, MD [address] [place] [address] [phone] 10/05/2024 7:30 AM CDT - 10/05/2024 9:00 AM CDT Surgery [facility] [place] [address] [place] [id number] Seth Henderson IV, MD [address] [place] [address] [phone] RECTAL EXAM UNDER ANESTHESIA WITH EXCISION ANAL [...] COVID: Suspected 07/28/2024 07/28/2024 07/29/2024 12:32 AM SOLDERER DIPPER RSV, droplet 07/28/2024 07/28/2024 08/04/2024 3:05 AM CDT Meningitis, bacterial, dropl et Comment:Per Dr Daigle, patient may be removed from isolation 08/24/2024 08/24/2024 08/28/2024 11:49 AM CDT documented as of this encounter Care Teams Cigar Head Piercer Relationship Specialty Start Date End Date Josh Parham MD PCP - General Internal Medicine 06/12/21 05/17/24 Idris Sanchez MD [address] [address] PCP - General Family Practice 05/18/24 09/23/24 No, Physician PCP - General 09/24/24 David Gorman MD Radiation Oncologist Radiation Oncology 03/25/23 Matteo Brooks MD [address] [facility] MEDICAL ONCOLOGY[address] [address] Medical Oncologist/Bike Shop Manager Medical Oncology 03/31/23 Gerson Keith MD [address] [facility] MEDICAL ONCOLOGY, [address] [address] Consulting Physician Nephrology 05/07/23 Cassie Márquez MD [address] [place] [address] Consulting Physician Family Medicine 06/25/23 Seth Henderson IV, MD [address] [place] [id number] Consulting Physician General Surgery 10/21/23 Seth Henderson IV, MD [address] [place] [address] [phone] Consulting Physician General Surgery 10/21/23 David Gorman MD [address] [place] [address] [phone] Radiation Oncologist Radiation Oncology 10/21/23 Blayne Sepulveda MD [address] [place] [address] [phone] Consulting Physician General Surgery 03/10/24 Gerson Forrester DO [address] [place] [address] [phone] Consulting Physician General Surgery 03/14/24 Teddy Hull MD [address] [address] Consulting Physician Cardiology 09/22/24 documented as of this encounter
--- OUTSIDE RECORDS SUMMARY | 2024-09-27 21:15 | XMS_ITS | Referral Summary ---
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 CDT) [facility] Sodium 139 135 - 145 mmol/L Potassium, pl 4.1 3.3 - 4.9 mmol/L [facility] Comment:Hemolyzed; Potassium value may be falsely elevated by as much as 1.0 mmol/L. Suggest redraw and reanalysis. Chloride 98 97 - 110 mmol/L [facility] CO2 23 22 - 32 mmol/L [facility] Anion gap 18(H) 2 - 15 mmol/L [facility] BUN 41(H) 6 - 25 mg/dL [facility] Creatinine 8.93(H) 0.80 - 1.30 mg/dL [facility] Glucose 104 70 - 199 mg/dL [facility] Comment: Interpretive Data Fasting glucose >/= 126 [...] 2022. Calcium 9.2 8.5 - 10.3 mg/dL DARA Blood 08/27/2024 2:38 AM CDT 08/27/2024 3:08 AM CDT us Rachel Montgomery NP LAB BLOOD ORDER SARAH Final Result DARA [address] Department [place] [address] * ECG 12 lead (08/27/2024 1:22 AM CDT) [facility] Ventricular Rate EKG/Min 88 BPM [facility] Atrial Rate 88 BPM [facility] AK-Interval (MSEC) 212 ms [facility] QRS-Interval (MSEC) 92 ms [facility] QT-Interval (MSEC) 426 ms [facility] QTc 515 ms [facility] P [place] 64 degrees [facility] R [place] 71 degrees [facility] T [place] 62 degrees [facility] Diagnosis Sinus rhythm with 1st degree A-V block Prolonged QT Abnormal ECG When compared with ECG of 07-APR-2024 23:22, ST no longer depressed in Anterior leads QT has lengthened Confirmed by PRAVIN TREJO M.D. ([id number]) on 08/27/2024 12:51:46 PM [facility] 08/27/2024 1:22 AM CDT 08/27/2024 12:51 PM CDT us Harjit Levy MD ECG ORDERABLES Final Result [facility] * Critical Care (08/26/2024 11:06 PM CDT) [...] plan with the ICU team and other medical/road consultant staff, making frequent assessments and decisions [...] 12:08 PM Critical Care Performed by: Chelo De NP Authorized by: Chelo De NP CRITICAL CARE: Team: B Shift: AM [...] plan with the ICU team and other medical/road consultant staff, making frequent assessments and decisions [...] documenting in the medical record us Chelo De NP IN CLINIC/BEDSIDE ORD ERABLES Final Result [...] MD LAB BLOOD ORDERABLES Final R esult [facility]BJJ [address] Department [place] [address] * (ABNORMAL) Differential, auto (08/26/2024 3:08 AM CDT) Pathologist [facility] Neutrophil abs 1.18(L) 1.50 - 6.50 K/cumm Imm gran abs 0.01 0.00 - 0.10 K/cumm [facility] Lymphocyte abs 0.84 0.80 - 3.30 K/cumm [facility] Monocyte abs 0.55 0.20 - 0.80 K/cumm [facility] Eosinophil abs 0.41 0.00 - 0.50 K/cumm [facility] Basophil abs 0.02 0.00 - 0.10 K/cumm [facility] Neutrophil pct 39.2 % [facility] Comment: Interpretive Data Percent cell count reference ranges are not reported, since discordance with absolute values may lead to misinterpretation of CBC data. Current Interpretive Data was last revised on 2017. Imm gran pct 0.3 % [facility] Comment: Interpretive Data Percent cell count reference ranges are not reported, since discordance with absolute values may lead to misinterpretation of CBC data. Current Interpretive Data was last revised on 2017. Lymphocyte pct 27.9 % [facility] Comment: Interpretive Data Percent cell count reference ranges are not reported, since discordance with absolute values may lead to misinterpretation of CBC data. Current Interpretive Data was last revised on 2017. Monocyte pct 18.3 % [facility] Comment: Interpretive Data Percent cell count reference ranges are not reported, since discordance with absolute values may lead to misinterpretation of CBC data. Current Interpretive Data was last revised on 2017. Eosinophil pct 13.6 % [facility] Comment: Interpretive Data Percent cell count reference ranges are not reported, since discordance with absolute values may lead to misinterpretation of CBC data. Current Interpretive Data was last revised on 2017. Basophil pct 0.7 % [facility] Comment: Interpretive Data Percent cell count reference ranges are not reported, since discordance with absolute values may lead to misinterpretation of CBC data. Current Interpretive Data was last revised on 2017. Blood 08/26/2024 3:08 AM CDT 08/26/2024 3:15 AM CDT Isidro Daigle MD LAB BLOOD ORDERABLES Final R esult Performing Organization Address [facility] Co de Phone Number DARA [address] [address] * (ABNORMAL) CBC with auto differential (08/26/2024 3:08 AM CDT) Pathologist [facility] WBC 3.01(L) 3.80 - 9.90 K/cumm Hgb 9.4(L) 13.0 - 17.5 g/dL [facility] Hct 30.2(L) 38.9 - 50.3 % [facility] Plt 77(L) 150 - 400 K/cumm [facility] MPV 9.3 9.1 - 12.3 fL [facility] RBC 3.10(L) 4.30 - 5.80 M/cumm [facility] MCV 97.4(H) 81.3 - 96.4 fL [facility] MCH 30.3 27.1 - 33.3 pg [facility] MCHC 31.1(L) 32.3 - 35.7 g/dL [facility] RDW CV 18.6(H) 11.1 - 14.9 % [facility] RDW SD 66.7(H) 35.7 - 48.1 fL [facility] NRBC abs 0.00 0.00 - 0.01 K/cumm [facility] Blood 08/26/2024 3:08 AM CDT 08/26/2024 3:15 AM CDT Isidro Daigle MD LAB BLOOD ORDERABLES Final R esult DARA [address] [place] [address] * (ABNORMAL) Phosphorus (08/26/2024 3:08 AM CDT) Phosphorus, pl 6.1(H) 2.3 - 4.5 mg/dL Blood 08/26/2024 3:08 AM CDT 08/26/2024 3:15 AM CDT Rachel Montgomery NP LAB BLOOD ORDER SARAH Final Result Performing Organization Address City/[facility] Co de Phone Number [address] [address] * Magnesium (08/26/2024 3:08 AM CDT) [facility] Magnesium 2.4 1.4 - 2.5 mg/dL Blood 08/26/2024 3:08 AM CDT 08/26/2024 3:15 AM CDT Racheldedra Duenas Valentina NP LAB BLOOD ORDER SARAH Final Result Performing Organization Address [facility] de Phone Number [address] [address] * (ABNORMAL) Comprehensive metabolic panel (08/26/2024 3:08 AM CDT) [facility] Sodium 138 135 - 145 mmol/L Potassium, pl 4.3 3.3 - 4.9 mmol/L [facility] Comment:Hemolyzed; Potassium value may be falsely elevated by as much as 1.0 mmol/L. Suggest redraw and reanalysis. Chloride 98 97 - 110 mmol/L [facility] CO2 27 22 - 32 mmol/L [facility] Anion gap 13 2 - 15 mmol/L [facility] BUN 24 6 - 25 mg/dL [facility] Creatinine 6.85(H) 0.80 - 1.30 mg/dL [facility] Glucose 96 70 - 199 mg/dL [facility] Comment: Interpretive Data Fasting glucose >/= 126 [...] 2022. Calcium 8.5 8.5 - 10.3 mg/dL [facility] Bilirubin, total 0.2 0.1 - 1.2 mg/dL [facility] Protein, pl 7.2 6.5 - 8.5 g/dL [facility] Albumin 3.5 3.5 - 5.0 g/dL [facility] Alk phos 63 40 - 130 Units/L [facility] ALT 29 7 - 55 Units/L [facility] AST 32 10 - 50 Units/L [facility] Blood 08/26/2024 3:08 AM CDT 08/26/2024 3:15 AM CDT us Isidro Daigle MD LAB BLOOD ORDERABLES Final R esult [facility]ELLEN [address] Department [place] [address] * Critical Care (08/25/2024 10:26 PM CDT) Narrative Harjit Levy MD - 08/25/2024 10:26 PM CDT Harjit Levy MD 08/26/2024 3:06 AM Critical Care Performed by: Harjit Levy MD Authorized by: Harjit Levy MD CRITICAL CARE: Team: [facility] Shift: PM Level of Billing: Critical Care [...] plan with the ICU team and other medical/road consultant staff, making frequent assessments and decisions [...] Detected Not Detected Comment:Testing performed by : [facility], [address] [place]., [address] Legionella pneumophila DNA Not Detected Not Detected DARA Comment:Testing performed by : [facility], [address] [facility], [address] M. pneumoniae DNA Not Detected Not Detected DARA Comment:Testing performed by : [facility], [address] [facility], [address] Adenovirus DNA Not Detected Not Detected CERELLEN Comment:Testing performed by : [facility], [address] [place]., [address] Coronavirus (229E, OC43, HKU1, NL63) RNA Not Detected Not Detected DARA Comment:Testing performed by : [facility], [address] [place]., [address] Metapneumovirus RNA Not Detected Not Detected DARA Comment:Testing performed by : [facility], [address] [place]., [address] Rhinovirus/Enterov irus RNA Not Detected Not Detected CERELLEN Comment:Testing performed by : [facility], [address] [place] [address]., [address] Influenza A RNA Not Detected Not Detected DARA Comment:Testing performed by : [facility], [address] [place]., [address] Influenza B RNA Not Detected Not Detected DARA Comment:Testing performed by : [facility], [address] [place]., [address] Parainfluenza virus (1-4) RNA Not Detected Not Detected DARA NORRIS Comment:Testing performed by : [facility], [address] [place]., [address] RSV RNA Not Detected Not Detected DARA NORRIS Comment:Testing performed by : [facility], [address] [place]., [address] Tracheal aspirate 08/25/2024 10:45 AM CDT 08/25/2024 5:19 PM CDT Narrative DARA NORRIS - 08/25/2024 6:57 PM CDT [employer] [...] of this assay have been determined by [facility]. Current interpretive data was last revised on 2023. Rachel Montgomery NP LAB MICROBIOLOG Y - GENERAL ORDERABLES Final Result DARA NORRIS [address] [place] [address] Department [place] [address] * (ABNORMAL) Pneumonia PCR with aerobic culture and Gram stain Tracheal aspirate (08/25/2024 10:45 AMCDT) Direct Specimen Exam Molecular Analysis: 10^4 copies/mL Pseudomonas aeruginosa Correlation of molecular analysis with final culture results is recommended. Comment:Testing performed by : [facility], [address] [place]., [address] Direct Specimen Exam Stain: Few polymorphonuclear leukocytes seen. Few squamous epithelial cells seen. No organisms seen. DARA Comment:Testing performed by : [facility], [address] [place] [address]., [address] Report Final Report: Insignificant growth based on current clinical standards. (.) DARA Comment:Testing performed by : [facility], [address] [place] [address], [address] Tracheal aspirate 08/25/2024 10:45 AM CDT 08/25/2024 4:02 PM CDT Narrative [facility] - 08/27/2024 2:17 PM CDT When rapid molecular testing results are reported, testing completed using the Insync Pneumonia Panel. This molecular assay detects: Acinetobacter [...] performance characteristics have been confirmed by the [facility]. The performance of the FilmArray Pneumonia Panel has not been established for monitoring treatment of infection and bacterial nucleic acids may persist independent of organism viability. Rachel Montgomery NP LAB MICROBIOLOG Y - GENERAL ORDERABLES Final Result DARA [address] Department [place] [address] * Critical Care (08/25/2024 8:29 AM CDT) Ilana Lindsey, - 08/25/2024 8:29 AM CDT Ilana Houston DO 08/25/2024 12:19 PM Critical Care Performed by: Rachel Montgomery NP Authorized by: Rachel Montgomery NP CRITICAL CARE: Team: [facility] Shift: AM Level of Billing: Critical Care [...] plan with the ICU team and other medical/road consultant staff, making frequent assessments and decisions [...] * (ABNORMAL) eGFR (08/25/2024 2:16 AM CDT) eGFR 7(L) >=60 mL/min/1. 73 m2 Comment: [...] CDT 08/25/2024 2:42 AM CDT Rachel Montgomery SENIOR COST ESTIMATOR LAB BLOOD ORDER SARAH Final Result ANTONIETTAHOM [address] Department [place] [address] * (ABNORMAL) CBC without differential (08/25/2024 2:16 AM CDT) WBC 2.98(L) 3.80 - 9.90 K/cumm Hgb 9.2(L) 13.0 - 17.5 g/dL [facility] Hct 30.2(L) 38.9 - 50.3 % [facility] Plt 70(L) 150 - 400 K/cumm [facility] MPV 10.7 9.1 - 12.3 fL [facility] RBC 3.07(L) 4.30 - 5.80 M/cumm [facility] MCV 98.4(H) 81.3 - 96.4 fL [facility] MCH 30.0 27.1 - 33.3 pg [facility] MCHC 30.5(L) 32.3 - 35.7 g/dL [facility] RDW CV 18.7(H) 11.1 - 14.9 % [facility] RDW SD 68.0(H) 35.7 - 48.1 fL [facility] NRBC abs 0.00 0.00 - 0.01 K/cumm [facility] Blood 08/25/2024 2:16 AM CDT 08/25/2024 2:42 AM CDT Racheldedra Montgomery NP LAB BLOOD ORDER SARAH Final Result Performing Organization Address City/[facility] Co de Phone Number [address] [employer] [place], [place] [id number] * (ABNORMAL) Phosphorus (08/25/2024 2:16 AM CDT) Phosphorus, pl 6.4(H) 2.3 - 4.5 mg/dL Blood 08/25/2024 2:16 AM CDT 08/25/2024 2:42 AM CDT [facility] Yulissa Montgomery NP LAB BLOOD ORDER SARAH Final Result Performing Organization Address City/[facility]/ZIP Co de Phone Number [address] [place] [address] * Magnesium (08/25/2024 2:16 AM CDT) Magnesium 2.5 1.4 - 2.5 mg/dL Blood 08/25/2024 2:16 AM CDT 08/25/2024 2:42 AM CDT Rachel Montgomery SENIOR COST ESTIMATOR LAB BLOOD ORDER SARAH Final Result Performing Organization Address [facility] de Phone Number [address] [address] * Vancomycin level random (08/25/2024 2:16 AM CDT) Pathologist [facility] Vancomycin random 18.9 mcg/mL Comment: Interpretive Data No reference ranges have been established for random drug levels. Current Interpretive Data was last revised on 2020. Blood 08/25/2024 2:16 AM CDT 08/25/2024 2:42 AM CDT Ilana Houston DO LAB BLOOD ORDERABLES Fin al Result Performing Organization Address [facility] de Phone Number [address] [address] * (ABNORMAL) Basic metabolic panel (08/25/2024 2:16 AM CDT) [facility] Sodium 141 135 - 145 mmol/L Potassium, pl 4.1 3.3 - 4.9 mmol/L [facility] Chloride 101 97 - 110 mmol/L [facility] CO2 24 22 - 32 mmol/L [facility] Anion gap 16(H) 2 - 15 mmol/L [facility] BUN 29(H) 6 - 25 mg/dL [facility] Creatinine 8.12(H) 0.80 - 1.30 mg/dL [facility] Glucose 75 70 - 199 mg/dL [facility] Comment: Interpretive Data Fasting glucose >/= 126 [...] Calcium 8.2(L) 8.5 - 10.3 mg/dL DARA Blood 08/25/2024 2:16 AM CDT 08/25/2024 2:42 AM CDT Rachel Montgomery NP LAB BLOOD ORDER SARAH Final Result DARA [address] Department [place] [address] * CT Head W WO Contrast (08/24/2024 11:06 PM CDT) Anatomical Region Laterality Modality Head and Neck N/A Computed Tomogra phy 08/25/2024 1:44 AM CDT Narrative 08/25/2024 1:49 AM CDT EXAM DESCRIPTION: CT HEAD W WO CONTRAST REASON FOR STUDY: Meningitis/MAKEUP SALES ADVISOR infection suspected Patient is a 69 y.o. [...] specialty services including infectious disease. concern for MAKEUP SALES ADVISOR infection or meningitis TECHNIQUE: Axial images acquired [...] Katina Le M.D. SN T: Report ID: [id number] Reading Location: [id number] Procedure Note Katina Le MD - 08/25/2024 EXAM DESCRIPTION: CT HEAD W WO CONTRAST REASON FOR STUDY: Meningitis/MAKEUP SALES ADVISOR infection suspected Patient is a 69 y.o. male presented to [facility] on 08/20/24 with complaints ofAMS. Per family, [...] specialty services including infectious disease. concern for MAKEUP SALES ADVISOR infection or meningitis TECHNIQUE: Axial images acquired [...] Katina Le M.D. SN T: Report ID: [id number] Reading Location: [place] [address] Rachel Montgomery NP IM CT PROCEDUR ES Final Result * Critical Care (08/24/2024 10:19 PM CDT) Narrative Harjit Levy MD - 08/24/2024 10:19 PM CDT Harjit Levy MD 08/25/2024 2:12 AM Critical Care Performed by: Harjit Levy MD Authorized by: Harjit Levy MD CRITICAL CARE: Team: [facility] Shift: PM Level of Billing: Critical Care [...] plan with the ICU team and other medical/road consultant staff, making frequent assessments and decisions [...] * POCT glucose (08/24/2024 6:39 PM CDT) [facility] Signature Glucose, POC 100 70 - 199 mg/dL Blood 08/24/2024 6:39 PM CDT 08/24/2024 6:39 PM CDT us Ilana Houston DO LAB POCT ORDERABLES - DE VICE Final Result [facility]NER [address] Department [place] [address] * POCT glucose (08/24/2024 4:41 PM CDT) Pathologist [facility] Glucose, POC 71 70 - 199 mg/dL Glucose comment 1 RN/MD Notified DARA Blood 08/24/2024 4:41 PM CDT 08/24/2024 4:41 PM CDT us Ilana Houston DO LAB POCT ORDERABLES - DE VICE Final Result Performing Organization Address City/[facility]/ZIP Co de Phone Number DARA [address] [address] * (ABNORMAL) Copper, serum (08/24/2024 2:56 PM CDT) [facility] Copper 153(H) 73 - 129 mcg/dL [place] [facility] Comment: ADDITIONAL INFORMATION This test was developed and its performance characteristics determined by [facility] in a manner consistent with CLIA requirements. This test has not been cleared or approved by the U.S. Food and Drug Administration. Test Performed by: [facility] - [address] [address] Glass Inserter: Henry Radford Ph.D.; CLIA# [id number] Blood 08/24/2024 2:56 PM CDT 08/24/2024 3:08 PM CDT us Viky KIMBLE LAB BLOOD ORDERABLES Final Result Performing Organization Address City/[facility]/ZIP Co de Phone Number ANTONIETTA[address] [place] [address] [place] ref [facility] * RPR Blood (08/24/2024 2:56 PM CDT) [facility] RPR Nonreactive Nonreactive Comment:Testing performed by : [facility], [address] [facility], [place]., [address] Blood 08/24/2024 2:56 PM CDT 08/24/2024 5:46 PM CDT Viky KIMBLE LAB MICROBIOLOGY - GENERAL ORDERABLES Final Result Performing Organization Address [facility] Phone Number [address] [address] * TSH (08/24/2024 2:56 PM CDT) Thyroid Stimulating Hormone 0.35 0.30 - 4.20 mcIUnit/mL Blood 08/24/2024 2:56 PM CDT 08/24/2024 3:08 PM CDT Viky KIMBLE LAB BLOOD ORDERABLES Final Result Performing Organization Address [facility] Phone Number [address] [address] * T4, free (08/24/2024 2:56 PM CDT) Free T4 1.25 0.90 - 1.70 ng/dL Blood 08/24/2024 2:56 PM CDT 08/24/2024 3:08 PM CDT Viky Lakesha KIMBLE LAB BLOOD ORDERABLES Final Result Performing Organization Address [facility] Phone Number [address] [address] * (ABNORMAL) Vitamin B1 (08/24/2024 2:56 PM CDT) Thiamine (Vit B1) 67(L) 70 - 180 nmol/L [place] ref [facility] Comment: ADDITIONAL INFORMATION This test was developed and its performance characteristics determined by [facility] in a manner consistent with CLIA requirements. This test has not been cleared or approved by the U.S. Food and Drug Administration. Test Performed by: [facility] [address] [place] [address] Glass Inserter: Henry Radford Ph.D.; CLIA# [id number] Blood 08/24/2024 2:56 PM CDT 08/24/2024 3:09 PM CDT Viky KIMBLE LAB BLOOD ORDERABLES Final Result DARA [address] [address] [place] ref [facility] * Vitamin B12 (08/24/2024 2:56 PM CDT) [facility] Vitamin B12 1,226 230 - 1,250 pg/mL Blood 08/24/2024 2:56 PM CDT 08/24/2024 3:08 PM CDT Viky KIMBLE LAB BLOOD ORDERABLES Final Result Performing Organization Address [facility] Co de Phone Number [address]TONI[address] [address] * Ammonia (08/24/2024 2:56 PM CDT) [facility] Ammonia 24 <=50 mcmol/L Comment: Please note on 09/29/2023 the unit of measure changed from mcg/dL to mcmol/L. Current Interpretive Data was last revised on 2023. Blood 08/24/2024 2:56 PM CDT 08/24/2024 3:01 PM CDT Viky KIMBLE LAB BLOOD ORDERABLES Final Result Performing Organization Address City/[facility] Co de Phone Number [address]TONI[address] [address] * POCT glucose (08/24/2024 12:06 PM CDT) Glucose, POC 79 70 - 199 mg/dL Blood 08/24/2024 12:0 6 PM CDT 08/24/2024 12:06 PM CDT us Ilana Houston DO LAB POCT ORDERABLES - DE VICE Final Result Performing Organization Address City/[facility] [facility] Co de Phone Number [address] [place] [address] * POCT glucose (08/24/2024 10:16 AM CDT) Glucose, POC 80 70 - 199 mg/dL Glucose comment 1 RN/MD Notified [facility] Blood 08/24/2024 10:1 6 AM CDT 08/24/2024 10:16 AM CDT us Ilana Houston DO LAB POCT ORDERABLES - DE VICE Final Result Performing Organization Address City/[facility] Co de Phone Number [address] [address] * POCT glucose (08/24/2024 8:51 AM CDT) Glucose, POC 70 70 - 199 mg/dL Glucose comment 1 RN/MD Notified [facility] Blood 08/24/2024 8:51 AM CDT 08/24/2024 8:51 AM CDT us Ilana Houston DO LAB POCT ORDERABLES - DE VICE Final Result Performing Organization Address City/[facility] Co de Phone Number [address] [address] * Critical Care (08/24/2024 7:20 AM CDT) Narrative Ilana Houston DO - 08/24/2024 7:20 AM CDT Ilana Houston DO 08/24/2024 5:34 PM Critical Care Performed by: Rachel Montgomery NP Authorized by: Rachel Montgomery NP CRITICAL CARE: Team: [facility] Shift: AM Level of Billing: Critical Care [...] plan with the ICU team and other medical/road consultant staff, making frequent assessments and decisions [...] 7:36 AM CDT Joaquim Nguyễn MD LAB BLOOD ORDERABLES Final Resu lt Performing Organization Address [facility] Co de Phone Number [address] [address] * Hepatitis B surface antibody (immune status) Blood (08/24/2024 7:20 AM CDT) HBsAb (immune status) Nonreactive Comment: Interpretive Data [...] HBsAb (immune status) index >1,000.0 mIUnits/m L DARA Blood 08/24/2024 7:20 AM CDT 08/24/2024 7:36 AM CDT us Joaquim Nguyễn MD LAB MICROBIOLOGY - GENERAL [facility] JON Edited Result - Final Performing Organization Address [facility] de Phone Number [address] [address] * (ABNORMAL) Hepatitis B Surface Antigen Blood (08/24/2024 7:20 AM CDT) HepBsAg Reactive( A) Nonreactive Comment:HBV surface antigen reactivity is presumptive evidence of HBV infection. Confirmatory testing automatically performed to determine infection status. Current interpretive data was last revised on 22 Blood 08/24/2024 7:20 AM CDT 08/24/2024 7:36 AM CDT Joaquim Nguyễn MD LAB MICROBIOLOGY - GENERAL [facility] JON Final Result Performing Organization Address City/[facility] Co de Phone Number [address] [employer] [address] * (ABNORMAL) eGFR (08/24/2024 6:18 AM CDT) [facility] eGFR 9(L) >=60 mL/min/1. 73 m2 Comment: [...] LAB BLOOD ORDERABLES Final R esult DARA [address] [place] [address] * (ABNORMAL) Differential, auto (08/24/2024 6:18 AM CDT) [facility] Neutrophil abs 2.20 1.50 - 6.50 K/cumm Imm gran abs 0.02 0.00 - 0.10 K/cumm [facility] Lymphocyte abs 0.53(L) 0.80 - 3.30 K/cumm [facility] Monocyte abs 0.57 0.20 - 0.80 K/cumm [facility] Eosinophil abs 0.41 0.00 - 0.50 K/cumm [facility] Basophil abs 0.02 0.00 - 0.10 K/cumm [facility] Neutrophil pct 58.8 % [facility] Comment: Interpretive Data Percent cell count reference ranges are not reported, since discordance with absolute values may lead to misinterpretation of CBC data. Current Interpretive Data was last revised on 2017. Imm gran pct 0.5 % [facility] Comment: Interpretive Data Percent cell count reference ranges are not reported, since discordance with absolute values may lead to misinterpretation of CBC data. Current Interpretive Data was last revised on 2017. Lymphocyte pct 14.1 % [facility] Comment: Interpretive Data Percent cell count reference ranges are not reported, since discordance with absolute values may lead to misinterpretation of CBC data. Current Interpretive Data was last revised on 2017. Monocyte pct 15.2 % [facility] Comment: Interpretive Data Percent cell count reference ranges are not reported, since discordance with absolute values may lead to misinterpretation of CBC data. Current Interpretive Data was last revised on 2017. Eosinophil pct 10.9 % [facility] Comment: Interpretive Data Percent cell count reference ranges are not reported, since discordance with absolute values may lead to misinterpretation of CBC data. Current Interpretive Data was last revised on 2017. Basophil pct 0.5 % [facility] Comment: Interpretive Data Percent cell count reference ranges are not reported, since discordance with absolute values may lead to misinterpretation of CBC data. Current Interpretive Data was last revised on 2017. Blood 08/24/2024 6:18 AM CDT 08/24/2024 6:24 AM CDT us Isidro Daigle MD LAB BLOOD ORDERABLES Final R esult [facility] [address] Department [place] [address] * (ABNORMAL) CBC with auto differential (08/24/2024 6:18 AM CDT) Pathologist [facility] WBC 3.75(L) 3.80 - 9.90 K/cumm Hgb 10.1(L) 13.0 - 17.5 g/dL [facility] Hct 32.8(L) 38.9 - 50.3 % [facility] Plt 64(L) 150 - 400 K/cumm [facility] MPV 10.8 9.1 - 12.3 fL [facility] RBC 3.30(L) 4.30 - 5.80 M/cumm [facility] MCV 99.4(H) 81.3 - 96.4 fL [facility] MCH 30.6 27.1 - 33.3 pg [facility] MCHC 30.8(L) 32.3 - 35.7 g/dL [facility] RDW CV 18.8(H) 11.1 - 14.9 % [facility] RDW SD 68.8(H) 35.7 - 48.1 fL [facility] NRBC abs 0.00 0.00 - 0.01 K/cumm [facility] Blood 08/24/2024 6:18 AM CDT 08/24/2024 6:24 AM CDT us Isidro Daigle MD LAB BLOOD ORDERABLES Final R esult Performing Organization Address City/[facility]/ZIP Co de Phone Number [address] [employer] [place], [place] [id number] * (ABNORMAL) Phosphorus (08/24/2024 6:18 AM CDT) Phosphorus, pl 5.1(H) 2.3 - 4.5 mg/dL Blood 08/24/2024 6:18 AM CDT 08/24/2024 6:24 AM CDT us Ilana Houston DO LAB BLOOD ORDERABLES Fin al Result [address] [employer] [place] [address] * Magnesium (08/24/2024 6:18 AM CDT) Magnesium 2.1 1.4 - 2.5 mg/dL Blood 08/24/2024 6:18 AM CDT 08/24/2024 6:24 AM CDT us Ilana Houston DO LAB BLOOD ORDERABLES Fin al Result Performing Organization Address [facility] Co de Phone Number [address] [address] * Vancomycin level random (08/24/2024 6:18 AM CDT) Pathologist [facility] Vancomycin random 20.6 mcg/mL Comment: Interpretive Data No reference ranges have been established for random drug levels. Current Interpretive Data was last revised on 2020. Blood 08/24/2024 6:18 AM CDT 08/24/2024 6:24 AM CDT Rachel Montgomery SENIOR COST ESTIMATOR LAB BLOOD ORDER SARAH Final Result Performing Organization Address [facility] de Phone Number [address] [address] * (ABNORMAL) Comprehensive metabolic panel (08/24/2024 6:18 AM CDT) [facility] Sodium 142 135 - 145 mmol/L Potassium, pl 4.4 3.3 - 4.9 mmol/L [facility] Chloride 102 97 - 110 mmol/L [facility] CO2 27 22 - 32 mmol/L [facility] Anion gap 13 2 - 15 mmol/L [facility] BUN 20 6 - 25 mg/dL [facility] Creatinine 6.33(H) 0.80 - 1.30 mg/dL [facility] Glucose 75 70 - 199 mg/dL [facility] Comment: Interpretive Data Fasting glucose >/= 126 [...] 2022. Calcium 8.5 8.5 - 10.3 mg/dL [facility] Bilirubin, total 0.3 0.1 - 1.2 mg/dL [facility] Protein, pl 7.6 6.5 - 8.5 g/dL [facility] Albumin 3.8 3.5 - 5.0 g/dL [facility] Alk phos 60 40 - 130 Units/L [facility] ALT 25 7 - 55 Units/L [facility] AST 32 10 - 50 Units/L [facility] Blood 08/24/2024 6:18 AM CDT 08/24/2024 6:24 AM CDT us Isidro Daigle MD LAB BLOOD ORDERABLES Final R esult DARA [address] Department [place] [address] * Critical Care (08/23/2024 10:45 PM CDT) Narrative Harjit Levy MD - 08/23/2024 10:45 PM CDT Harjit Levy MD 08/24/2024 2:26 AM Critical Care Performed by: Harjit Levy MD Authorized by: Harjit Levy MD CRITICAL CARE: Team: [facility] Shift: PM Level of Billing: Critical Care [...] plan with the ICU team and other medical/road consultant staff, making frequent assessments and decisions [...] CBC without differential (08/23/2024 9:14 PM CDT) Pathologist [facility] WBC 2.88(L) 3.80 - 9.90 K/cumm Hgb 10.3(L) 13.0 - 17.5 g/dL [facility] Hct 34.8(L) 38.9 - 50.3 % [facility] Plt 57(L) 150 - 400 K/cumm [facility] MPV 10.5 9.1 - 12.3 fL [facility] RBC 3.41(L) 4.30 - 5.80 M/cumm [facility] MCV 102.1(H) 81.3 - 96.4 fL [facility] MCH 30.2 27.1 - 33.3 pg [facility] MCHC 29.6(L) 32.3 - 35.7 g/dL [facility] RDW CV 19.1(H) 11.1 - 14.9 % [facility] RDW SD 72.2(H) 35.7 - 48.1 fL [facility] NRBC abs 0.00 0.00 - 0.01 K/cumm [facility] Blood 08/23/2024 9:14 PM CDT 08/23/2024 9:17 PM CDT Rachel Montgomery SENIOR COST ESTIMATOR LAB BLOOD ORDER SARAH Final Result DARA [address] Department [place] [address] * POCT glucose (08/23/2024 8:36 PM CDT) Glucose, POC 76 70 - 199 mg/dL Blood 08/23/2024 8:36 PM CDT 08/23/2024 8:36 PM CDT us Ilana Houston DO LAB POCT ORDERABLES - DE VICE Final Result Performing Organization Address [facility] Co de Phone Number DARA [address] [address] * G6PD qualitative with reflex to quantitative (08/23/2024 8:18 PM CDT) Pathologist [facility] G6PD Normal Normal Comment: Interp data: G6PD activity should be interpreted in the context of a patient's hematocrit. Hematocrit < 20% may lead to a falsely deficient result, while hematocrit > 50% may lead to a falsely normal result. Current interpretive data was last revised on 2019. Testing performed by: [facility], [address], [place]., [address] Blood 08/23/2024 8:18 PM CDT 08/24/2024 5:01 AM CDT us Isidro Daigle MD LAB BLOOD ORDERABLES Final R esult Performing Organization Address [facility] Co de Phone Number [address] [address] * Lactate (08/23/2024 8:18 PM CDT) [facility] Lactate 1.0 0.7 - 2.0 mmol/L Blood 08/23/2024 8:18 PM CDT 08/23/2024 8:34 PM CDT us Rachel Montgomery NP LAB BLOOD ORDER SARAH Final Result Performing Organization Address City/[facility] Co de Phone Number [address] [address] * Cryptococcal Antigen, Serum Blood (08/23/2024 8:18 PM CDT) Pathologist [facility] Cryptococcus ag, Serum Negative Negative Comment: The [...] data last revised 2018. Testing performed by: [facility], [address] [place]., [address] Blood 08/23/2024 8:18 PM CDT 08/24/2024 5:12 AM CDT us Isidro Daigle MD LAB MICROBIOLOGY - GENERAL O RDERABLES Final Result Performing Organization Address City/State/[facility] Co sd Phone Number [facility] [address] Department [place] [address] * CTA Chest Abdomen Pelvis (08/23/2024 6:39 [...] Kwan Smith M.D. KT T: Report ID: [id number] Reading Location: [id number] Procedure Note Kwan Smith MD - 08/23/2024 [...] Kwan Smith M.D. KT T: Report ID: [id number] Reading Location: [place] [address] Rachel Montgomery NP IM CT PROCEDUR ES Final Result * (ABNORMAL) Pneumonia PCR with aerobic culture and Gram stain Tracheal aspirate Tracheal (:12 PM CDT) Direct Specimen Exam Stain: Rare polymorphonuclear leukocytes seen. Abundant squamous epithelial cells seen indicating excessive oral pharyngeal contamination Moderate Gram Positive Cocci Comment:Testing performed by : [facility], [address] [place] [address], [place]., [address] Direct Specimen Exam Molecular Analysis: Abundant squamous epithelial cells observed on Gram stain. Specimen will not be processed for rapid molecular analysis. DARA NORRIS Comment:Testing performed by : [facility], [address] [place]., [address] Report Final Report: Growth indicates upper respiratory janell. (.) DARA NORRIS Comment:Testing performed by : [facility], [address] [place]., [address] Organism GROWTH INDICATES UPPER RESPIRATORY JANELL. DARA NORRIS Tracheal aspirate (Tracheal) 08/23/2024 5:12 PM CDT 08/23/2024 10:02 PM CDT Narrative DARA - 08/26/2024 9:31 AM CDT When rapid molecular testing results are reported, testing completed using the Lysanda FilmArray Pneumonia Panel. This molecular assay detects: Acinetobacter [...] performance characteristics have been confirmed by the [facility]. The performance of the FilmArray Pneumonia Panel has not been established for monitoring treatment of infection and bacterial nucleic acids may persist independent of organism viability. Chelo De NP LAB MICROBIOLOGY - [facility] ORDERABLES Final Result [address] [place] [address] * Infection Prevention MRSA Only (Staphylococcus aureus) PCR Nasal (08/23/2024 5:12 PM CDT) PCR Scrn, Methicillin resistant Staphylococcus aureus (MRSA) Not Detected Not Detected Comment: Interpretive Data Testing performed using Nucleic Acid Amplification with the Alloy Digital Xpert MRSA NxG Assay. This assay detects target DNA from mecA, mecC and the SCCmec insertion site of Staphylococcus aureus using Real-Time PCR and has been cleared by the FDA. Performance characteristics have been verified by the [facility]. Current Interpretive Data was last revised on 2023 Nasal 08/23/2024 5:12 PM CDT 08/23/2024 5:15 PM CDT Chelo De SENIOR COST ESTIMATOR LAB MICROBIOLOGY - [facility] ORDERABLES Final Result [place] [address] [place] [address] * Blood culture Blood (08/23/2024 4:19 PM CDT) Pathologist [facility] Report Final Report: No growth Comment:Testing performed by : [facility], [address] [facility], [place]., [address] Blood 08/23/2024 4:19 PM CDT 08/23/2024 8:21 PM CDT Narrative [facility] - 08/28/2024 7:01 AM CDT From a [...] performance characteristics have been verified by the [facility]. For questions about this culture, contact the Microbiology Laboratory at [phone]. Interpretive data was last revised on 24. us Chelo De NP LAB MICROBIOLOGY - [facility] ORDERABLES Final Result [facility] [address] Department [place] [address] * (ABNORMAL) POC Blood Gas and Chemistries, Arterial - (08/23/2024 4:13 PM CDT) pH, art POC 7.40 7.35 - 7.45 pCO2, art POC 52(H) 35 - 45 mmHg [facility] pO2, art POC 75(L) 83 - 108 mmHg [facility] HCO3, art (Calc) POC 32(H) 20 - 30 mmol/L [facility] Base excess, art POC 6 mmol/L [facility] Comment: Interpretive Data No reference range established. Current interpretive data was last revised 2020. O2 Sat, art (Calc) POC 96 94 - 98 % [facility] Oxy Hgb, art POC 93.2 90.0 - 95.0 % [facility] Met Hgb, art POC 0.4 0.0 - 1.9 % [facility] Carboxy Hgb, art POC 2.4 0.0 - 2.9 % [facility] Hemoglobin, art POC 10.7(L) 13.0 - 17.5 g/dL [facility] Sodium, art POC 142 135 - 145 mmol/L [facility] Potassium, art POC 4.0 3.3 - 4.9 mmol/L [facility] Comment: Interpretive Data This method is not able to assess for hemolysis, which may falsely increase potassium concentrations. If further testing is needed to evaluate this result, consider in-laboratory plasma potassium. Current Interpretive Data was last revised on 2022. Glucose, art POC 85 70 - 199 mg/dL [facility] Ionized Calcium, art POC 4.54 4.50 - 5.10 mg/dL [facility] Lactate, art POC 1.2 0.7 - 2.0 mmol/L [facility] Blood 08/23/2024 4:13 PM CDT 08/23/2024 4:13 PM CDT us Ilana Houston DO LAB POCT ORDERABLES - DE VICE Final Result Performing Organization Address City/[facility]/ZIP Co de Phone Number [address] [employer] [address] * (ABNORMAL) Lactate (08/23/2024 4:10 PM CDT) [facility] Lactate 2.3(H) 0.7 - 2.0 mmol/L Blood 08/23/2024 4:10 PM CDT 08/23/2024 5:03 PM CDT us Chelo De LAB BLOOD ORDERABLES Final Result Performing Organization Address City/[facility]/ZIP Co de Phone Number [address] [address] * (ABNORMAL) eGFR (08/23/2024 4:10 PM CDT) [facility] eGFR 12(L) >=60 mL/min/1. 73 m2 Comment: [...] CDT 08/23/2024 5:01 PM CDT us Chelo De NP LAB BLOOD ORDERABLES Final Result [place] [address] [facility] [address] Department [place] [address] * (ABNORMAL) Differential, auto (08/23/2024 4:10 PM CDT) Neutrophil abs 2.72 1.50 - 6.50 K/cumm Imm gran abs 0.01 0.00 - 0.10 K/cumm [facility] Lymphocyte abs 0.53(L) 0.80 - 3.30 K/cumm [facility] Monocyte abs 0.42 0.20 - 0.80 K/cumm [facility] Eosinophil abs 0.32 0.00 - 0.50 K/cumm [facility] Basophil abs 0.02 0.00 - 0.10 K/cumm [facility] Neutrophil pct 67.7 % [facility] Comment: Interpretive Data Percent cell count reference ranges are not reported, since discordance with absolute values may lead to misinterpretation of CBC data. Current Interpretive Data was last revised on 2017. Imm gran pct 0.2 % [facility] Comment: Interpretive Data Percent cell count reference ranges are not reported, since discordance with absolute values may lead to misinterpretation of CBC data. Current Interpretive Data was last revised on 2017. Lymphocyte pct 13.2 % [facility] Comment: Interpretive Data Percent cell count reference ranges are not reported, since discordance with absolute values may lead to misinterpretation of CBC data. Current Interpretive Data was last revised on 2017. Monocyte pct 10.4 % [facility] Comment: Interpretive Data Percent cell count reference ranges are not reported, since discordance with absolute values may lead to misinterpretation of CBC data. Current Interpretive Data was last revised on 2017. Eosinophil pct 8.0 % [facility] Comment: Interpretive Data Percent cell count reference ranges are not reported, since discordance with absolute values may lead to misinterpretation of CBC data. Current Interpretive Data was last revised on 2017. Basophil pct 0.5 % [facility] Comment: Interpretive Data Percent cell count reference ranges are not reported, since discordance with absolute values may lead to misinterpretation of CBC data. Current Interpretive Data was last revised on 2017. Blood 08/23/2024 4:10 PM CDT 08/23/2024 4:59 PM CDT Chelo De SENIOR COST ESTIMATOR LAB BLOOD ORDERABLES Final Result Performing Organization Address [facility] Co de Phone Number [address] [address] * Calcium, ionized (08/23/2024 4:10 PM CDT) Pathologist [facility] Calcium, Ionized 4.54 4.50 - 5.10 mg/dL Blood 08/23/2024 4:10 PM CDT 08/23/2024 5:00 PM CDT Chelo De SENIOR COST ESTIMATOR LAB BLOOD ORDERABLES Final Result Performing Organization Address City/[facility] Co de Phone Number [address] [address] * (ABNORMAL) CBC with auto differential (08/23/2024 4:10 PM CDT) Pathologist [facility] WBC 4.02 3.80 - 9.90 K/cumm Hgb 10.5(L) 13.0 - 17.5 g/dL [facility] Hct 35.1(L) 38.9 - 50.3 % [facility] Plt 81(L) 150 - 400 K/cumm [facility] MPV 10.2 9.1 - 12.3 fL [facility] RBC 3.57(L) 4.30 - 5.80 M/cumm [facility] MCV 98.3(H) 81.3 - 96.4 fL [facility] MCH 29.4 27.1 - 33.3 pg [facility] MCHC 29.9(L) 32.3 - 35.7 g/dL [facility] RDW CV 18.9(H) 11.1 - 14.9 % [facility] RDW SD 69.2(H) 35.7 - 48.1 fL [facility] NRBC abs 0.00 0.00 - 0.01 K/cumm [facility] Blood 08/23/2024 4:10 PM CDT 08/23/2024 4:59 PM CDT Chelo De SENIOR COST ESTIMATOR LAB BLOOD ORDERABLES Final Result Performing Organization Address [facility] Co de Phone Number [address] [place] [address] * ABO/Rh (08/23/2024 4:10 PM CDT) ABO/Rh O Positive Blood 08/23/2024 4:10 PM CDT 08/23/2024 4:58 PM CDT Narrative [facility] - 08/23/2024 5:35 PM CDT Has the patient had Daratumumab or Isatuximab in the past 6 months?->Unknown Chelo De NP LAB BLOOD BANK TEST O RDERABLES Final Result Performing Organization Address City/[facility]/ZIP Co de Phone Number [address] [place] [address] * Blood culture Blood (08/23/2024 4:10 PM CDT) Report Final Report: No growth Comment:Testing performed by : [facility], [address] [facility], [place]., [address] Blood 08/23/2024 4:10 PM CDT 08/23/2024 8:21 PM CDT Narrative [facility] - 08/28/2024 7:01 AM CDT Collection->Peripheral 1. [...] performance characteristics have been verified by the [facility]. For questions about this culture, contact the Microbiology Laboratory at [phone]. Interpretive data was last revised on 24. Chelo De NP LAB MICROBIOLOGY - [facility] ORDERABLES Final Result DARA [address] Department [place] [address] * (ABNORMAL) T-helper cells (CD4) count (08/23/2024 4:10 PM CDT) [facility] CD4 pct 13(L) 31 - 64 % Comment:Testing performed by : [facility], [address] [facility] [place] [address] CD4 Absolute 65(L) 365 - 1,294 cells/mcL DARA Comment:Testing performed by : [facility], [address] [facility] [place] [address] Blood 08/23/2024 4:10 PM CDT 08/23/2024 8:01 PM CDT Cehlo De SENIOR COST ESTIMATOR LAB BLOOD ORDERABLES Final Result Performing Organization Address [facility] Co de Phone Number [address] [address] * Antibody screen (08/23/2024 4:10 PM CDT) [place], indirect, Gel Interpretation Negative ABSC Blood 08/23/2024 4:10 PM CDT 08/23/2024 4:58 PM CDT Narrative [facility] - 08/23/2024 5:35 PM CDT Has the patient had Daratumumab or Isatuximab in the past 6 months?->Unknown Chelo De SENIOR COST ESTIMATOR LAB BLOOD BANK TEST O RDERABLES Final Result Performing Organization Address [facility] Co de Phone Number [address] [address] * Phosphorus (08/23/2024 4:10 PM CDT) Pathologist [facility] Phosphorus, pl 3.5 2.3 - 4.5 mg/dL Blood 08/23/2024 4:10 PM CDT 08/23/2024 5:01 PM CDT Chelo De SENIOR COST ESTIMATOR LAB BLOOD ORDERABLES Final Result Performing Organization Address City/[facility] Co de Phone Number [address] [address] * Magnesium (08/23/2024 4:10 PM CDT) Pathologist [facility] Magnesium 2.1 1.4 - 2.5 mg/dL Blood 08/23/2024 4:10 PM CDT 08/23/2024 5:01 PM CDT Chelo De SENIOR COST ESTIMATOR LAB BLOOD ORDERABLES Final Result DARA [address] Department [place] [address] * (ABNORMAL) Comprehensive metabolic panel (08/23/2024 4:10 PM CDT) Sodium 144 135 - 145 mmol/L Potassium, pl 4.0 3.3 - 4.9 mmol/L [facility] Chloride 103 97 - 110 mmol/L [facility] CO2 28 22 - 32 mmol/L [facility] Anion gap 13 2 - 15 mmol/L [facility] BUN 15 6 - 25 mg/dL [facility] Creatinine 4.95(H) 0.80 - 1.30 mg/dL [facility] Glucose 78 70 - 199 mg/dL [facility] SYSTEMS Comment: Interpretive Data Fasting glucose >/= 126 [...] 2022. Calcium 8.9 8.5 - 10.3 mg/dL [facility] Bilirubin, total 0.4 0.1 - 1.2 mg/dL [facility] Protein, pl 8.3 6.5 - 8.5 g/dL [facility] Albumin 4.1 3.5 - 5.0 g/dL [facility] Alk phos 66 40 - 130 Units/L [facility] ALT 29 7 - 55 Units/L [facility] AST 36 10 - 50 Units/L [facility] Blood 08/23/2024 4:10 PM CDT 08/23/2024 5:01 PM CDT us Chelo De SENIOR COST ESTIMATOR LAB BLOOD ORDERABLES Final Result DARA [address] [facility] Department [place] [address] * X-ray chest 1 view (Portable) (08/23/2024 [...] Kwan Caceres M.D. KR T: Report ID: [id number] Reading Location: [place] [address] Procedure Note Kwan Caceres MD - 08/23/2024 [...] signed by Kwan RAPP T: Report ID: [id number] Reading Location: [id number] us Chelo Grant Santino SENIOR COST ESTIMATOR IMG XR PROCEDURES Fin al Result * [...] signed by Kwan RAPP T: Report ID: [id number] Reading Location: [id number] Procedure Note Kwan Caceres MD - 08/23/2024 [...] signed by Kwan RAPP T: Report ID: [id number] Reading Location: [id number] hCelo De SENIOR COST ESTIMATOR IMG XR PROCEDURES Fin al Result * Critical Care (08/23/2024 3:45 PM CDT) Narrative Ilana Houston, DO - 08/23/2024 3:45 PM CDT Ilana Houston, DO 08/24/2024 5:33 PM Critical Care Performed by: [...] plan with the ICU team and other medical/road consultant staff, making frequent assessments and decisions [...] REPRODUCTIVE: The prostate is enlarged. VASCULATURE ABDOMEN: Herjxume-vx-hrkmt amount of atherosclerotic plaque in the aorta [...] Kerwin Freedman M.D. AM: AM Report ID: [id number] Reading Location: [id number] Procedure Note Kerwin Freedman MD - 08/22/2024 [...] REPRODUCTIVE: The prostate is enlarged. VASCULATURE ABDOMEN: Gbocnvzw-ip-pnmex amount of atherosclerotic plaquein the aorta and [...] Kerwin Freedman M.D. AM: AM Report ID: [id number] Reading Location: [id number] Matteo Brooks MD IMG CT PROCEDURES Fi nal [...] Alf Rios M.D. MZ T: Report ID: [id number] Reading Location: [id number] Narrative 08/01/2024 10:02 AM CDT EXAM DESCRIPTION: [...] Alf Rios M.D. MZ T: Report ID: [id number] Reading Location: [id number] Procedure Note Alf Rios MD - 08/01/2024 [...] signed by Alf PEREZ T: Report ID: [id number] Reading Location: [place] [address] Merrick Aguirre NP IMG XR PROCEDURES Edited Result - Final * (ABNORMAL) Influenza A/B, RSV, and COVID-19 PCR Nasopharyngeal (07/28/2024 6:01 PM LOCKSTITCH COAT JOINER) [facility] COVID-19 RNA Negative Negative Influenza A RNA Negative Negative [facility] Influenza B RNA Negative Negative [facility] RSV RNA Positive(A) Negative [facility] Comment: Interpretive data: Testing performed by [facility]. This test is performed using the [employer] Digital Xpert Xpress CoV-2/Flu/RSV plus assay. This is a multiplex, real-time reverse transcriptase PCR assay intended for the qualitative detection of nucleic acid from SARS-CoV-2, influenza A, influenza B, and respiratory syncytial virus. This assay has been cleared by the [place] Food and Drug administration. The performance characteristics have been verified by the [facility]. Results must be considered in the clinical context, and a negative result does not rule out infection. Interpretive Data last revised 2023 Nasopharyngeal 07/28/2024 6: 01 PM LOCKSTITCH COAT JOINER 07/28/2024 11:48 PM LOCKSTITCH COAT JOINER Narrative [facility] - 07/29/2024 12:31 AM LOCKSTITCH COAT JOINER Is the Patient experiencing symptoms consistent with COVID?->Yes Reason for testing?->Symptomatic Known exposure to confirmed or suspected COVID-19 case?->No Merrick Aguirre NP [facility] Final Result DARA [address] Department [place] [address] [place] * TB test, quantiferon gold (01/21/2024 10:15 AM CDT) Pathologist [facility] Quantiferon TB Gold Negative Negative [facility] ref Lab Comment: No interferon-gamma response to M. tuberculosis antigens was detected. Latent infection with M. tuberculosis is unlikely. A single negative result does not exclude infection with M. tuberculosis. In patients at high risk for M.tuberculosis infection, a second test should be considered in accordance with the 2017 ATS/IDSA/CDC Clinical Practice Guidelines for Diagnosis of Tuberculosis in Adults and Children [Mario ROSE et. al. Clin. Infect. Dis. 2017;64(2):111-115]. The reference range for the 'TB1 Ag minus Nil Result' and 'TB2 Ag minus Nil Result' is an Interferon-gamma level <0.35 IU/mL. TB-Nil 0.00 IUnits/mL [facility] TB2-Nil 0.01 IUnits/mL [facility] Mitogen-Nil >10.00 IUnits/mL [facility] NIL 0.02 IUnits/mL [facility] Comment: Test Performed by: [place] [address] Glass Inserter: Henry Radford Ph.D.; CLIA# [id number] Blood 01/21/2024 10:1 5 AM CDT 01/21/2024 10:35 AM CDT us Negrito Amaya MD LAB BLOOD ORDERABLES Trina l Result [address] Department [place] [address] [place] ref Lab * (ABNORMAL) Hepatitis C antibody Blood (11/02/2023 8:16 PM CDT) Hep C Ab Reactive( A) Nonreactive Comment: [...] - GENERAL ORDERABLES Final Result DARA SCHWARTZ [address] [place] [address] * Lipid panel (11/02/2023 8:03 PM CDT) [...] Pediatrics 2011;128:S213 2. NCEP Expert Panel. Circulation 2003;110:227 Current Interpretive Data was last revised on 2018. Chol/HDL ratio 3 DARA SCHWARTZ Blood 11/02/2023 8:03 PM CDT 11/02/2023 8:03 PM CDT us Bhavesh Mariano MD LAB BLOOD ORDERAB LES Final Result DARA SCHWARTZ [address] Department [place] [address] * (ABNORMAL) Hepatitis A antibody, total Blood (11/02/2023 7:48 PM CDT) Hep A total Reactive( A) Nonreactive Comment:Testing performed by : [facility], [address] [place] [address] Blood 11/02/2023 7:48 PM CDT 11/03/2023 10:02 AM CDT Bhavesh Mariano MD LAB MICROBIOLOGY - GENERAL ORDERABLES Final Result Performing Organization Address [facility] Co de Phone Number [facility] [address] Department [place] [address] * (ABNORMAL) Urinalysis reflex to microscopic and culture Urine (03/12/2023 1:13 AM CDT) Pathologist [facility] Color, ur Yellow Yellow Clarity, ur Clear Clear [facility] Specific gravity, ur 1.009 1.003 - 1.030 [facility] pH, urine 5.0 [facility] Comment: Interpretive Data U rine pH is affected by diet, medications, systemic acid-base disturbances, and renal tubular function. pH may affect urinary stone formation. For example, urine pH below 6.0 may help reduce the tendency for calcium phosphate stones and pH greater than 6.0 may reduce the tendency for uric acid stone formation. Source: [facility] Current Interpretive Data was last revised on 2017 Protein, ur ql 3+(A) Negative [facility] Glucose, ur ql Negative Negative [facility] Ketones, ur Negative Negative [facility] Bilirubin, ur Negative Negative [facility] Blood, ur 3+(A) Negative [facility] Urobilinogen, ur <2.0 <2.0 mg/dL [facility] Nitrite, ur Negative Negative [facility] Leukocyte esterase, ur 1+(A) Negative [facility] UA reflex comment Reflex to microscopic UA will be performed. [facility] Urine 03/12/2023 1:13 AM CDT 03/12/2023 1:27 AM CDT us Trey Pritchett MD LAB MICROBIOLOGY - GENERAL O RDERABLES Final Result Performing Organization Address City/[facility]/ZIP Co de Phone Number [facility] [address] [place] [address] from Last 3 Months or Most Recently Relevant to Health Maintenance Insurance [facility] MEDICARE ADVANTAGE [facility] MEDICARE ADVANTAGE [employer] [facility] MEDICARE ADVANT[facility] MEDIC[facility] Address: [address] [address] [place] [address] Advance Directives For more information, please contact: [phone] Documents on File Type Date Recorded Patient Media Relations Manager Expl anation Power of Composition Instructor 06/23/2021 4:27 PM * Full Code (Latest [...] 1:01 AM 10/15/2023 11:27 PM Care Teams Grease Refiner Operator Relationship Specialty Start Date End Date No, Physician PCP - General 09/24/24 Matteo Brooks MD [facility], [address] [place] [address] Medical Oncologist/Commercial Collections Specialist Medical Oncology 03/31/23 Gerson Keith MD [address] [facility], [address] [address] Consulting Physician Nephrology 05/07/23 Cassie Márquez MD [address] [place] [address] Consulting Physician Family Medicine 06/25/23 Seth Henderson IV, MD [address] [place] [address] [id number] Consulting Physician General Surgery 10/21/23 Seth Henderson IV, MD [address] [place] [address] [id number] Consulting Physician General Surgery 10/21/23 David Gorman MD [address] [place] [address] [id number] Radiation Oncologist Radiation Oncology 10/21/23 Blayne Sepulveda MD [address] [place] [address] [id number] Consulting Physician General Surgery 03/10/24 Gerson Forrester DO [address] [place] [address] [phone] Consulting Physician General Surgery 03/14/24 Teddy Hull MD [address] [id number] Consulting Physician Cardiology 09/22/24
--- OUTSIDE RECORDS SUMMARY | 2024-09-27 21:15 | XMS_ITS ---
Author Organization [facility] [address] Address [address] [place] [address] Care Team Providers Care Commercial Estimator Name Role Phone Matteo Brooks MD Unavailable [phone] Gerson Keith MD Unavailable Cassie Márquez MD Unavailable Beatriz TO MD, Seth Vasquez Unavailable [phone] Beatriz TO MD, Lyman Lansing Unavailable [phone] David Gorman MD Unavailable [phone] Blayne Sepulveda MD Unavailable Gerson Forrester DO Unavailable Teddy Hull MD Unavailable No, Physician Primary Care Provider [phone] Dialysis Access Sites Type Status Location Placement Date Removal Da te Hemodialysis Cath Double 08/23/24 Right Subclavian Active Right Breast - Upper 08/23/2024 Hemodialysis Cath Double 02/01/24 Tunneled catheter Right Internal Jugular Inactive Right Neck (side) - Anterior 02/01/2024 04/19/2024 Hemodialysis Cath Double 01/27/24 Right Femoral Inactive Right Thigh - Anterior 01/27/2024 Hemodialysis Cath Double 03/12/23 Right Subclavian Inactive Right Breast - Upper 03/12/2023 0 01/27/2024 Historical Dialysis Procedures Date BP Pre BP Post Weight Pre Weight Post Treatment Duration Start Time End Time Achieved BFR Vascular Access from Last 30 Days Procedures Procedure Name Priority Date/Time Associated Diagnosis [...] AND COVID-19 PCR Routine 07/28/2024 6:01 PM EMERGENCY DEPARTMENT COORDINATOR Elevated blood pressure reading in office [...] Maintenance Allergies No known active allergies Medications amLODIPine (NORVASC) 10 mg tablet Take 1 tablet (10 mg total) by mouth daily 08/30/19 25 Active carvediloL (COREG) 12.5 mg tablet Take 1 tablet (12.5 mg total) by mouth 2 (two) times a day 08/29/19 Active doxazosin (CARDURA) 8 mg tablet Take 1 tablet (8 mg total) by mouth nightly 08/29/19 Active entecavir (BARACLUDE) 0.5 mg tabletIndications: Viral Hepatitis B Take 1 tablet (0.5 mg total) by mouth every 7 days 08/30/19 Active losartan (COZAAR) 100 mg tablet Take 1 tablet (100 mg total) by mouth daily 08/30/19 Active minoxidiL (LONITEN) 2.5 mg tabletIndications: hypertension Take 1 tablet (2.5 mg total) by mouth 2 (two) times a day 08/29/19 25 Active darunavir-cobicist at (Prezcobix) 800-150 mg tabletIndications: [...] 07/11/2024 Assessment & Plan (07/17/2024 8:36 AM EMERGENCY DEPARTMENT COORDINATOR): 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 Salas, and was given LIVELENZ. No current complaints of urinary outlet syndrome. Last Assessment & Plan: Noted on recent renal ultrasound. Reports that he recently saw urologist, Dr. Salas, and was given LIVELENZ. No current complaints of urinary outlet syndrome. [...] Chronic hepatitis C 08/09/2014 Overview (05/18/2024): 04/25/2019 ANN MARIE, Dr. Dione Parham note 08/09/14. Patient has [...] screening Assessment & Plan (07/28/2021 1:03 PM EMERGENCY DEPARTMENT COORDINATOR): He has a history of chronic [...] Imdur and Losartan. He will see his chain saw driver next week to discuss further changes in [...] controlled. He follows with Dr. Parham and chain saw driver. No changes in medications today. Note that [...] regimen. Referral to infectious disease specialists at [facility] has been made, but apparently, they do not accept his insurance. Referral to [facility] will be generated after the results of [...] regimen. 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 Full details of background history on prior notes (see my note from 11/02/2023. His girlfriend Radha is assisting him inspector timers for all his healthcare needs including giving [...] for drug interactions with ART. 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 Details of history on HPI. His girlfriend Radha is assisting him inspector timers for all his healthcare needs including giving [...] for drug interactions with ART. 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 Details of history on HPI. His girlfriend Radha is assisting him inspector timers for all his healthcare needs including giving [...] for drug interactions with ART. Recommended resource: https://www.hiv-druginteractions.org/quality control checker Assessment & Plan (10/17/2021 11:24 AM [...] Prezcobix - Discussed adherence at [facility] Cont bactrim for PJP prophylaxis - RTC [...] BID + Prezcobix - [facility] - Cont bactrim for PJP prophylaxis - RTC in 4 weeks for close follow up - Discussed partner getting on PrEP; HIV test for partner today Assessment & Plan (07/28/2021 1:01 PM EMERGENCY DEPARTMENT COORDINATOR): Mr. Tirado is a 66 year [...] Immunization Administration Dates Next Due COVID-19 mRNA ([place]) 0.3 m L (30 mcg) vaccine (12 years and up) 06/27/2024,02/16/2023 Hep B, Unspecified 11/27/2011,10/28/2011, 012 Influenza, Quad, Adjuvantate d, Intramuscular 05/23/2022,03/03/2021,02/19/2020 Influenza, Quadrivalent, Hig h Dose, Preservative Free, Intrr 02/16/2023 Influenza, Quadrivalent, Rec ombinant, Egg Free, Preservative Free, Intramuscular 04/25/2019,06/16/2018 Influenza, Quadrivalent, Spl it, Intramuscular 01/28/2017 Influenza, Quadrivalent, Spl it, Preservative Free, Intramuscular 01/28/2017,06/23/2016,06/19/2014 Influenza, Unspecified 02/23/2024,2022,02/19/2020,02/11 Meningococcal MCV4P (Menactra) 10/14/2018,2018 [employer] SARS-CoV-2 Monovalent Vaccination (12+ Yrs) PURPLE 07/07/2021 [...] drink = 0.6 oz pur e alcohol) [facility] Utilities Answer Date Recorded In the past 12 months has [employer], gas, oil, or water [employer] threatened to shut off services in your [...] How often do you attend chur or mu-ism services? Patient unable to answer [...] in a penitentiary (including now)? No 08/30/2023 PHQ-9 Answer Date [...] any time in the past 12 m [facility], were you homeless or living in a penitentiary (including now)? Patient unable to answer 08/24/2024 Personal Safety Answer Date Recorded Have you ever been in or are you currently in a harmful physical or emotional relationship or is someone making you feel afraid or unsafe? Denies 09/24/2024 Sex and Gender Information Value Date Recorded Sex Assigned at Not on file Legal Sex Male 11:35 AM EMERGENCY DEPARTMENT COORDINATOR Gender Identity Not on file Sexual [...] Mass Index 23.18 08/27/2024 11:46 AM CDT Results * POCT glucose (08/28/2024 3:42 PM CDT) [facility] Signature Glucose, POC 98 70 - 199 mg/dL Blood 08/28/2024 3:4 2 PM CDT 08/28/2024 3:42 PM CDT us Breanna Urbano DO LAB POCT ORDERABLES - DEV ICE Final Result [facility] [address] [facility] Department [place] [address] * EEG (08/28/2024 2:45 PM CDT) Anatomical [...] observed. Correlation with clinical findings is needed. us Chelo White NP NEUROLOGY ORDERABLES Final Res ult * Critical Care (08/28/2024 12:36 PM CDT) Narrative Breanna Urbano DO - 08/28/2024 12:36 PM CDT Breanna Urbano DO 08/29/2024 5:22 AM Critical Care Performed by: Chelo White NP Authorized by: Chelo White NP CRITICAL CARE: Team: [facility] Shift: AM Level of Billing: Critical Care [...] plan with the ICU team and other medical/systems consultant staff, making frequent assessments and decisions [...] BPM [facility] Atrial Rate 84 BPM [facility] NC-Interval (MSEC) 214 ms [facility] QRS-Interval (MSEC) 88 ms [facility] QT-Interval (MSEC) 390 ms [facility] QTc 458 ms [facility] P Bel[place] 73 degrees [facility] R Bel[place] 85 degrees [facility] T Belpre 53 degrees [facility] Diagnosis Sinus rhythm with 1st degree A-V block Right axis deviation Low voltage QRS When compared with ECG of 27-AUG-2024 01:22, QT has shortened Confirmed by SULTAN COSME M.D. ([id number]) on 08/28/2024 2:44:31 PM [facility] 08/28/2024 11:0 2 AM CDT 08/28/2024 2:44 PM CDT us Chelo White NP ECG ORDERABLES Final Result [facility] * TRANSTHORACIC ECHO (TTE) COMPLETE W DOPPLER/CF WO CONTRAST (08/28/2024 8:46 AM CDT) Anatomical Region Laterality Modality Ultrasound 08/28/2024 8:17 AM CDT Narrative 08/28/2024 11:59 AM CDT Transthoracic Echocardiographic Report Patient Name: LIANNA TIRADO : 1955 (69y 1m) Gender: M Study Date: 08/28/2024 08:17:00 AM Ht(Inch): 74 Wt(Lb): 180.01 BSA: 2.06 Bowling Alley Mechanic: Valentina Barraza [facility] Location: [place] [address] Order Provider: CHELO DE Heart Rate: 85 BMI: 23.11 BP: 166 / 104 Ref Provider: CHELO DE PROCEDURES: Echocardiographic Report: ([id number]) Transthoracic complete echo, 2D, spectral and tissue [...] AM Ht(Inch): 74 Wt(Lb): 180.01 BSA: 2.06 Bowling Alley Mechanic: JANES Gonzalez Location: [place] [address] Order Provider:CHELO DE Heart Rate: 85 BMI: 23.11 BP: 166 / 104 Ref Provider: CHELO DE PROCEDURES: Echocardiographic Report: ([id number]) Transthoracic complete echo, 2D,spectral and tissue Doppler, [...] cm RA Volume 61.50 ml MV Decel Rzzg021.00 msec RA Volume Index 29.85 ml/m2 Med [...] LAB BLOOD ORDER SARAH Final Result DARA [address] [facility] Department [place] [address] * (ABNORMAL) Protime-INR (08/28/2024 2:42 AM CDT) PT 15.8(H) 12.0 - 14.6 sec Comment:Ref Range High INR 1.2 0.9 - 1.2 DARA NORRIS Comment: Ref Range High Interpretive data Oral anticoagulant therapeutic ranges: Venous thromboembolism prophylaxis or treatment: 2.0-3.0 CARDIOLOGY Standard range: 2.0-3.0 High-intensity range: 2.5-3.5 Refer to indication-specific guidelines for appropriate target ranges for prosthetic heart valve replacement. Current interpretive data was last revised on 2019. Blood 08/28/2024 2:42 AM CDT 08/28/2024 2:51 AM CDT Chelo De SUPERIOR COURT JUDGE LAB BLOOD ORDERABLES Final Result Performing Organization Address [facility] Co de Phone Number [address] [address] * (ABNORMAL) CBC without differential (08/28/2024 2:42 AM CDT) Pathologist [facility] [place] WBC 4.42 3.80 - 9.90 K/cumm Hgb 8.6(L) 13.0 - 17.5 g/dL [facility] Hct 26.3(L) 38.9 - 50.3 % [facility] Plt 89(L) 150 - 400 K/cumm [facility] MPV 10.6 9.1 - 12.3 fL [facility] RBC 2.83(L) 4.30 - 5.80 M/cumm [facility] MCV 92.9 81.3 - 96.4 fL [facility] MCH 30.4 27.1 - 33.3 pg [facility] MCHC 32.7 32.3 - 35.7 g/dL [facility] RDW CV 18.6(H) 11.1 - 14.9 % [facility] RDW SD 62.4(H) 35.7 - 48.1 fL [facility] NRBC abs 0.00 0.00 - 0.01 K/cumm [facility] Blood 08/28/2024 2:42 AM CDT 08/28/2024 2:51 AM CDT Rachel Montgomery SUPERIOR COURT JUDGE LAB BLOOD ORDER SARAH Final Result Performing Organization Address City[facility]/ZIP Co de Phone Number [address] [place] [address] * (ABNORMAL) Phosphorus (08/28/2024 2:42 AM CDT) Pathologist [facility] [place] Phosphorus, pl 8.1(H) 2.3 - 4.5 mg/dL Blood 08/28/2024 2:42 AM CDT 08/28/2024 2:51 AM CDT Rachel Montgomery NP LAB BLOOD ORDER SARAH Final Result Performing Organization Address [facility] de Phone Number DARA [address] [address] * Magnesium (08/28/2024 2:42 AM CDT) [facility] Magnesium 2.5 1.4 - 2.5 mg/dL Blood 08/28/2024 2:42 AM CDT 08/28/2024 2:51 AM CDT Rachel Yulissa Valentina HANKINS LAB BLOOD ORDER SARAH Final Result Performing Organization Address [facility] Phone Number DARA [address] [address] * Vancomycin level random (08/28/2024 2:42 AM CDT) [facility] Vancomycin random 23.1 mcg/mL Comment: Interpretive Data No reference ranges have been established for random drug levels. Current Interpretive Data was last revised on 2020. Blood 08/28/2024 2:42 AM CDT 08/28/2024 2:51 AM CDT Ilana Houston DO LAB BLOOD ORDERABLES Fin al Result Performing Organization Address [facility] de Phone Number [address] [address] * (ABNORMAL) Basic metabolic panel (08/28/2024 2:42 AM CDT) [facility] Sodium 138 135 - 145 mmol/L Potassium, pl 4.0 3.3 - 4.9 mmol/L [facility] Chloride 97 97 - 110 mmol/L [facility] CO2 22 22 - 32 mmol/L [facility] Anion gap 19(H) 2 - 15 mmol/L [facility] BUN 57(H) 6 - 25 mg/dL [facility] Creatinine 10.70(H) 0.80 - 1.30 mg/dL [facility] Glucose 102 70 - 199 mg/dL [facility] Comment: Interpretive Data Fasting glucose >/= [...] 2022. Calcium 9.1 8.5 - 10.3 mg/dL [facility] Blood 08/28/2024 2:42 AM CDT 08/28/2024 2:51 AM CDT Rachel Montgomery NP LAB BLOOD ORDER SARAH Final Result [facility] [address] [facility] Department [place] [address] * MRI Brain W WO Contrast (08/27/2024 [...] white matter T2/FLAIR hyperintensities, most compatible with sgrp-gi-gtgqwusb chronic small vessel ischemic changes. POSTERIOR FOSSA: Brainstem and cerebellum appear unremarkable. No abnormal enhancement. DIFFUSION IMAGING: No recent infarction. EXTRAAXIAL SPACES: No hemorrhage. No mass or abnormal enhancement. BRAIN VOLUME: The ventricles and sulci are itje-dc-pzudjpdaop enlarged commensurate with global parenchymal volume loss. PITUITARY: Unremarkable. VASCULATURE: No flow disturbance identified. ORBITS: No masses. Globes normal. PARANASAL SINUSES AND MASTOIDS: Well-aerated with no fluid levels. Zzks-ow-vvrvnnkz diffuse paranasal sinus mucosal thickening. The bilateral mastoid air cells are redemonstrated partial opacification/effusions. OTHER: No other significant finding. IMPRESSION: 1. No acute intracranial abnormality. No evidence of recent infarct. 2. 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 3. Evja-gm-acjlktct paranasal sinus inflammatory disease. THIS IS AN ELECTRONICALLY VERIFIED FINAL REPORT 08/27/2024 6:34 PM - Electronically signed by Teddy Murrell M.D. T: Report ID: [id number] Reading Location: [id number] Procedure Note Teddy Murrell, - 08/27/2024 EXAM DESCRIPTION: MRI BRAIN W [...] supratentorial white matter T2/FLAIR hyperintensities,most compatible with veps-qy-waickwpw chronic small vessel ischemic changes. POSTERIOR FOSSA: Brainstem and cerebellum appear unremarkable. Noabnormal enhancement. DIFFUSION IMAGING: No recent infarction. EXTRAAXIAL SPACES: No hemorrhage. No mass or abnormal enhancement. BRAIN VOLUME: The ventricles and sulci are vaao-nz-ddmcrvhlzt enlarged commensurate with global parenchymal volume loss. PITUITARY: Unremarkable. VASCULATURE: No flow disturbance identified. ORBITS: No masses. Globes normal. PARANASAL SINUSES AND MASTOIDS: Well-aerated with no fluid levels. Ewej-zi-koumezkk diffuse paranasal sinus mucosal thickening. Thebilateral mastoid air cells are redemonstrated partial opacification/effusions. OTHER: No other significant finding. IMPRESSION: 1. No acute intracranial abnormality. No evidence of recent infarct. 2. 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 3. Srmp-zv-xnwfandx paranasal sinus inflammatory disease. THIS IS AN ELECTRONICALLY VERIFIED FINAL REPORT 08/27/2024 6:34 PM - Electronically signed by Teddy Murrell M.D. T: Report ID: [id number] Reading Location: [place] [address] Chelo De NP IMG MRI PROCEDURES Fi nal Result * Heavy metals, blood, quantitative (08/27/2024 12:52 PM CDT) Arsenic <1 <13 ng/mL [facility] Comment: ADDITIONAL INFORMATION This test was developed and its performance characteristics determined by [facility] in a manner consistent with CLIA requirements. This test has not been cleared or approved by the U.S. Food and Drug Administration. Lead 2.3 <3.5 mcg/dL [facility] Comment: ADDITIONAL INFORMATION Testing performed by Triple Quadrupole Inductively Coupled Plasma-Mass Spectrometry (ICP-MS/MS). This test was developed and its performance characteristics determined by [facility] in a manner consistent with CLIA requirements. This test has not been cleared or approved by the U.S. Food and Drug Administration. Mercury <1 <10 ng/mL [facility] Comment: ADDITIONAL INFORMATION This test was developed and its performance characteristics determined by [facility] in a manner consistent with CLIA requirements. This test has not been cleared or approved by the U.S. Food and Drug Administration. Cadmium, Blood 0.9 <5.0 ng/mL [facility] Comment: ADDITIONAL INFORMATION This test was developed and its performance characteristics determined by [facility] in a manner consistent with CLIA requirements. This test has not been cleared or approved by the U.S. Food and Drug Administration. Blood 08/27/2024 12:5 2 PM CDT 08/27/2024 1:06 PM CDT Breanna Euceda Link DO LAB BLOOD ORDERABLES Trina l Result Performing Organization Address [facility] Co de Phone Number DARA [address] [facility] [place] [address] [facility] * Lead, blood (08/27/2024 12:52 PM CDT) Lead 2.3 <3.5 mcg/dL [facility] Comment: ADDITIONAL INFORMATION Testing performed by Inductively Coupled Plasma-Mass Spectrometry (ICP-MS). This test was developed and its performance characteristics determined by [facility] in a manner consistent with CLIA requirements. This test has not been cleared or approved by the U.S. Food and Drug Administration. Blood 08/27/2024 12:5 2 PM CDT 08/27/2024 1:06 PM CDT Breannavishal Urbano DO LAB BLOOD ORDERABLES Trina l Result Performing Organization Address [facility] Co de Phone Number DARA [address] [facility] [place] [address] [facility] * Critical Care (08/27/2024 10:33 AM CDT) Narrative Breanna Urbano DO - 08/27/2024 10:33 AM CDT Breanna Urbano DO 08/27/2024 3:31 PM Critical Care Performed [...] plan with the ICU team and other medical/systems consultant staff, making frequent assessments and decisions [...] NP LAB BLOOD ORDER SARAH Final Result [facility]TON[facility]IC[facility] [address] [facility] Department [place] [address] * (ABNORMAL) CBC without differential (08/27/2024 2:38 AM CDT) WBC 3.27(L) 3.80 - 9.90 K/cumm Hgb 8.9(L) 13.0 - 17.5 g/dL [facility] Hct 27.4(L) 38.9 - 50.3 % [facility] Plt 89(L) 150 - 400 K/cumm [facility] MPV 11.8 9.1 - 12.3 fL [facility] RBC 2.89(L) 4.30 - 5.80 M/cumm [facility] MCV 94.8 81.3 - 96.4 fL [facility] MCH 30.8 27.1 - 33.3 pg [facility] MCHC 32.5 32.3 - 35.7 g/dL [facility] RDW CV 18.5(H) 11.1 - 14.9 % [facility] RDW SD 63.5(H) 35.7 - 48.1 fL [facility] NRBC abs 0.00 0.00 - 0.01 K/cumm [facility] Blood 08/27/2024 2:38 AM CDT 08/27/2024 3:08 AM CDT Rachel Montgomery NP LAB BLOOD ORDER SARAH Final Result Performing Organization Address City[facility]/ZIP Co de Phone Number [address] [place] [address] * (ABNORMAL) Phosphorus (08/27/2024 2:38 AM CDT) [facility] Phosphorus, pl 7.4(H) 2.3 - 4.5 mg/dL Blood 08/27/2024 2:38 AM CDT 08/27/2024 3:08 AM CDT Rachel Yulissa Montgomery NP LAB BLOOD ORDER SARAH Final Result [address] [place] [address] * Magnesium (08/27/2024 2:38 AM CDT) [facility] Magnesium 2.3 1.4 - 2.5 mg/dL Blood 08/27/2024 2:38 AM CDT 08/27/2024 3:08 AM CDT Rachel Montgomery NP LAB BLOOD ORDER SARAH Final Result [facility] [address] [facility] Department [place] [address] * (ABNORMAL) Basic metabolic panel (08/27/2024 2:38 AM CDT) [facility] Sodium 139 135 - 145 mmol/L Potassium, pl 4.1 3.3 - 4.9 mmol/L [facility] Comment:Hemolyzed; Potassium value may be falsely elevated by as much as 1.0 mmol/L. Suggest redraw and reanalysis. Chloride 98 97 - 110 mmol/L [facility] CO2 23 22 - 32 mmol/L [facility] Anion gap 18(H) 2 - 15 mmol/L [facility] BUN 41(H) 6 - 25 mg/dL [facility] Creatinine 8.93(H) 0.80 - 1.30 mg/dL [facility] Glucose 104 70 - 199 mg/dL [facility] Comment: Interpretive Data Fasting glucose >/= [...] 2022. Calcium 9.2 8.5 - 10.3 mg/dL [facility] Blood 08/27/2024 2:38 AM CDT 08/27/2024 3:08 AM CDT Rachel Yulissa Valentina SUPERIOR COURT JUDGE LAB BLOOD ORDER SARAH Final Result Performing Organization Address [facility]/ZIP Co de Phone Number DARA [address] [facility] Department [place] [address] * ECG 12 lead (08/27/2024 1:22 AM CDT) [facility] Ventricular Rate EKG/Min [address] [facility] Atrial Rate 88 BPM [facility] NC-Interval (MSEC) [address] [facility] QRS-Interval (MSEC) [address] [facility] QT-Interval (MSEC) 426 ms [facility] QTc 515 ms [facility] P Bel[place] 64 degrees [facility] R [place] 71 degrees [facility] T [place] 62 degrees [facility] Diagnosis Sinus rhythm with 1st degree A-V block Prolonged QT Abnormal ECG When compared with ECG of 07-APR-2024 23:22, ST no longer depressed in Anterior leads QT has lengthened Confirmed by PRAVIN TREJO M.D. ([id number]) on 08/27/2024 12:51:46 PM [facility] 08/27/2024 1:22 AM CDT 08/27/2024 12:51 PM CDT us Harjit Levy MD ECG ORDERABLES Final Result Performing Organization Address [facility] Co de Phone Number [facility] * Critical Care (08/26/2024 11:06 [...] plan with the ICU team and other medical/systems consultant staff, making frequent assessments and decisions [...] Care (08/26/2024 7:14 AM CDT) Narrative Breanna Urbano, - 08/26/2024 7:14 AM CDT Breanna Urbano DO 08/27/2024 12:08 PM Critical Care Performed by: Chelo De NP Authorized by: Chelo De NP CRITICAL CARE: Team: [facility] Shift: AM [...] plan with the ICU team and other medical/systems consultant staff, making frequent assessments and decisions [...] * (ABNORMAL) eGFR (08/26/2024 3:08 AM CDT) [facility] eGFR 8(L) >=60 mL/min/1. 73 m2 Comment: [...] MD LAB BLOOD ORDERABLES Final R esult [facility] [address] Department [place] [address] * (ABNORMAL) Differential, auto (08/26/2024 3:08 AM CDT) [facility] Neutrophil abs 1.18(L) 1.50 - 6.50 K/cumm Imm gran abs 0.01 0.00 - 0.10 K/cumm [facility] Lymphocyte abs 0.84 0.80 - 3.30 K/cumm [facility] Monocyte abs 0.55 0.20 - 0.80 K/cumm [facility] Eosinophil abs 0.41 0.00 - 0.50 K/cumm [facility] Basophil abs 0.02 0.00 - 0.10 K/cumm [facility] Neutrophil pct 39.2 % [facility] Comment: Interpretive Data Percent cell count reference ranges are not reported, since discordance with absolute values may lead to misinterpretation of CBC data. Current Interpretive Data was last revised on 2017. Imm gran pct 0.3 % [facility] Comment: Interpretive Data Percent cell count reference ranges are not reported, since discordance with absolute values may lead to misinterpretation of CBC data. Current Interpretive Data was last revised on 2017. Lymphocyte pct 27.9 % [facility] Comment: Interpretive Data Percent cell count reference ranges are not reported, since discordance with absolute values may lead to misinterpretation of CBC data. Current Interpretive Data was last revised on 2017. Monocyte pct 18.3 % [facility] Comment: Interpretive Data Percent cell count reference ranges are not reported, since discordance with absolute values may lead to misinterpretation of CBC data. Current Interpretive Data was last revised on 2017. Eosinophil pct 13.6 % [facility] Comment: Interpretive Data Percent cell count reference ranges are not reported, since discordance with absolute values may lead to misinterpretation of CBC data. Current Interpretive Data was last revised on 2017. Basophil pct 0.7 % [facility] Comment: Interpretive Data Percent cell count reference ranges are not reported, since discordance with absolute values may lead to misinterpretation of CBC data. Current Interpretive Data was last revised on 2017. Blood 08/26/2024 3:08 AM CDT 08/26/2024 3:15 AM CDT us Isidro Daigle MD LAB BLOOD ORDERABLES Final R esult [facility] [address] Department [place] [address] * (ABNORMAL) CBC with auto differential (08/26/2024 3:08 AM CDT) WBC 3.01(L) 3.80 - 9.90 K/cumm Hgb 9.4(L) 13.0 - 17.5 g/dL [facility] Hct 30.2(L) 38.9 - 50.3 % [facility] Plt 77(L) 150 - 400 K/cumm [facility] MPV 9.3 9.1 - 12.3 fL [facility] RBC 3.10(L) 4.30 - 5.80 M/cumm [facility] MCV 97.4(H) 81.3 - 96.4 fL [facility] MCH 30.3 27.1 - 33.3 pg [facility] MCHC 31.1(L) 32.3 - 35.7 g/dL [facility] RDW CV 18.6(H) 11.1 - 14.9 % [facility] RDW SD 66.7(H) 35.7 - 48.1 fL [facility] NRBC abs 0.00 0.00 - 0.01 K/cumm [facility] Blood 08/26/2024 3:08 AM CDT 08/26/2024 3:15 AM CDT Isidro Daigle MD LAB BLOOD ORDERABLES Final R esult Performing Organization Address [facility] Co de Phone Number [address] [place] [address] * (ABNORMAL) Phosphorus (08/26/2024 3:08 AM CDT) Phosphorus, pl 6.1(H) 2.3 - 4.5 mg/dL Blood 08/26/2024 3:08 AM CDT 08/26/2024 3:15 AM CDT Rachel Montgomery NP LAB BLOOD ORDER SARAH Final Result Performing Organization Address [facility]/ZIP Co de Phone Number [address] [place] [address] * Magnesium (08/26/2024 3:08 AM CDT) Magnesium 2.4 1.4 - 2.5 mg/dL Blood 08/26/2024 3:08 AM CDT 08/26/2024 3:15 AM CDT Rachel Yulissa Valentina SUPERIOR COURT JUDGE LAB BLOOD ORDER SARAH Final Result [facility] [address] Department [place] [address] * (ABNORMAL) Comprehensive metabolic panel (08/26/2024 3:08 AM CDT) Sodium 138 135 - 145 mmol/L Potassium, pl 4.3 3.3 - 4.9 mmol/L [facility] Comment:Hemolyzed; Potassium value may be falsely elevated by as much as 1.0 mmol/L. Suggest redraw and reanalysis. Chloride 98 97 - 110 mmol/L [facility] CO2 27 22 - 32 mmol/L [facility] Anion gap 13 2 - 15 mmol/L [facility] BUN 24 6 - 25 mg/dL [facility] Creatinine 6.85(H) 0.80 - 1.30 mg/dL [facility] Glucose 96 70 - 199 mg/dL [facility] Comment: Interpretive Data Fasting glucose >/= [...] 2022. Calcium 8.5 8.5 - 10.3 mg/dL [facility] Bilirubin, total 0.2 0.1 - 1.2 mg/dL [facility] Protein, pl 7.2 6.5 - 8.5 g/dL [facility] Albumin 3.5 3.5 - 5.0 g/dL [facility] Alk phos 63 40 - 130 Units/L [facility] ALT 29 7 - 55 Units/L [facility] AST 32 10 - 50 Units/L [facility] Blood 08/26/2024 3:08 AM CDT 08/26/2024 3:15 AM CDT Isidro Daigle MD LAB BLOOD ORDERABLES Final R esult [facility] [address] Department [place] [address] * Critical Care (08/25/2024 10:26 PM CDT) Narrative Harjit Levy MD - 08/25/2024 10:26 PM CDT Harjit Levy MD 08/26/2024 3:06 AM Critical Care Performed by: Harjit Levy MD Authorized by: Harjit Levy MD CRITICAL CARE: Team: [facility] Shift: PM Level of Billing: Critical Care [...] plan with the ICU team and other medical/systems consultant staff, making frequent assessments and decisions [...] Detected Not Detected Comment:Testing performed by : [facility], [address] [facility], [place]., [address] Legionella pneumophila DNA Not Detected Not Detected DARA NORRIS Comment:Testing performed by : [facility], [address] [facility], [address] M. pneumoniae DNA Not Detected Not Detected CERELLEN Comment:Testing performed by : [facility], [address] [facility], [address] Adenovirus DNA Not Detected Not Detected CERELLEN Comment:Testing performed by : [facility], [address] [facility], [address] Coronavirus (229E, OC43, HKU1, NL63) RNA Not Detected Not Detected CERELLEN Comment:Testing performed by : [facility], [address] [facility], [address] Metapneumovirus RNA Not Detected Not Detected CERELLEN Comment:Testing performed by : [facility], [address] [place] [address], [address] Rhinovirus/Enterov irus RNA Not Detected Not Detected CERELLEN Comment:Testing performed by : [facility], [address] [facility], [address] Influenza A RNA Not Detected Not Detected CERELLEN Comment:Testing performed by : [facility], [address] [place] [address], [address] Influenza B RNA Not Detected Not Detected CERELLEN Comment:Testing performed by : [facility], [address] [place] [address], [address] Parainfluenza virus (1-4) RNA Not Detected Not Detected DARA Comment:Testing performed by : [facility], [address] [place] [address], [address] RSV RNA Not Detected Not Detected [facility] Comment:Testing performed by : [facility], [address] [place] [address], [address] Tracheal aspirate 08/25/2024 10:45 AM CDT 08/25/2024 5:19 PM CDT Narrative [facility] - 08/25/2024 6:57 PM CDT The [employer] [...] rule out infection/co-infection with other organisms. The [employer] Pneumonia Panel is FDA cleared for lower respiratory tract specimens. The performance characteristics of this assay have been determined by [facility]. Current interpretive data was last revised on 2023. Rachel Montgomery NP LAB MICROBIOLOG Y - GENERAL ORDERABLES Final Result [facility] [address] Department [place] [address] * (ABNORMAL) Pneumonia PCR with aerobic culture and Gram stain Tracheal aspirate (08/25/2024 10:45 AMCDT) Direct Specimen Exam Molecular Analysis: 10^4 copies/mL Pseudomonas aeruginosa Correlation of molecular analysis with final culture results is recommended. Comment:Testing performed by : [facility], [address] [place]., [address] Direct Specimen Exam Stain: Few polymorphonuclear leukocytes seen. Few squamous epithelial cells seen. No organisms seen. DARA NORRIS Comment:Testing performed by : [facility], [address] [facility] [place]., [address] Report Final Report: Insignificant growth based on current clinical standards. (.) DARA NORRIS Comment:Testing performed by : [facility], [address] [facility], [place]., [address] Tracheal aspirate 08/25/2024 10:45 AM CDT 08/25/2024 4:02 PM CDT [facility] DARA NORRIS - 08/27/2024 2:17 PM CDT When rapid molecular testing results are reported, testing completed using the [employer] FilmArray Pneumonia Panel. This molecular assay detects: [...] performance characteristics have been confirmed by the [facility]. The performance of the FilmArray Pneumonia Panel has not been established for monitoring treatment of infection and bacterial nucleic acids may persist independent of organism viability. Rachel Montgomery NP LAB MICROBIOLOG Y - GENERAL ORDERABLES Final Result [facility] [address] Department [place] [address] * Critical Care (08/25/2024 8:29 AM CDT) Jerry Lindseylie Haylee, - 08/25/2024 8:29 AM CDT Ilana Houston, 08/25/2024 12:19 PM Critical Care Performed by: Rachel Montgomery NP Authorized by: Rachel Montgomery NP CRITICAL CARE: Team: [facility] Shift: AM Level of Billing: Critical Care [...] plan with the ICU team and other medical/systems consultant staff, making frequent assessments and decisions [...] documenting in the medical record Rachel Montgomery SUPERIOR COURT JUDGE IN CLINIC/BEDSI DE ORDERABLES Final Result * (ABNORMAL) eGFR (08/25/2024 2:16 AM CDT) [facility] eGFR 7(L) >=60 mL/min/1. 73 m2 Comment: [...] NP LAB BLOOD ORDER SARAH Final Result [address] Department [place] [address] * (ABNORMAL) CBC without differential (08/25/2024 2:16 AM CDT) WBC 2.98(L) 3.80 - 9.90 K/cumm Hgb 9.2(L) 13.0 - 17.5 g/dL [facility] Hct 30.2(L) 38.9 - 50.3 % [facility] Plt 70(L) 150 - 400 K/cumm [facility] MPV 10.7 9.1 - 12.3 fL [facility] RBC 3.07(L) 4.30 - 5.80 M/cumm [facility] MCV 98.4(H) 81.3 - 96.4 fL [facility] MCH 30.0 27.1 - 33.3 pg [facility] MCHC 30.5(L) 32.3 - 35.7 g/dL [facility] RDW CV 18.7(H) 11.1 - 14.9 % [facility] RDW SD 68.0(H) 35.7 - 48.1 fL [facility] NRBC abs 0.00 0.00 - 0.01 K/cumm DARA Blood 08/25/2024 2:16 AM CDT 08/25/2024 2:42 AM CDT Rachel Montgomery NP LAB BLOOD ORDER SARAH Final Result Performing Organization Address [facility] de Phone Number [address] [address] * (ABNORMAL) Phosphorus (08/25/2024 2:16 AM CDT) Phosphorus, pl 6.4(H) 2.3 - 4.5 mg/dL Blood 08/25/2024 2:16 AM CDT 08/25/2024 2:42 AM CDT Rachel Montgomery LAB BLOOD ORDER SARAH Final Result Performing Organization Address [facility] de Phone Number [address] [address] * Magnesium (08/25/2024 2:16 AM CDT) Magnesium 2.5 1.4 - 2.5 mg/dL Blood 08/25/2024 2:16 AM CDT 08/25/2024 2:42 AM CDT Racheldedra Montgomery LAB BLOOD ORDER SARAH Final Result Performing Organization Address [facility] de Phone Number [address] [address] * Vancomycin level random (08/25/2024 2:16 AM CDT) Vancomycin random 18.9 mcg/mL Comment: Interpretive Data No reference ranges have been established for random drug levels. Current Interpretive Data was last revised on 2020. Blood 08/25/2024 2:16 AM CDT 08/25/2024 2:42 AM CDT Ilana Houston DO LAB BLOOD ORDERABLES Fin al Result [address] [place] [address] * (ABNORMAL) Basic metabolic panel (08/25/2024 2:16 AM CDT) [facility] Sodium 141 135 - 145 mmol/L Potassium, pl 4.1 3.3 - 4.9 mmol/L [facility] Chloride 101 97 - 110 mmol/L [facility] CO2 24 22 - 32 mmol/L [facility] Anion gap 16(H) 2 - 15 mmol/L [facility] BUN 29(H) 6 - 25 mg/dL [facility] Creatinine 8.12(H) 0.80 - 1.30 mg/dL [facility] Glucose 75 70 - 199 mg/dL [facility] Comment: Interpretive Data Fasting glucose >/= [...] 2022. Calcium 8.2(L) 8.5 - 10.3 mg/dL [facility] Blood 08/25/2024 2:16 AM CDT 08/25/2024 2:42 AM CDT us Rachel Montgomery SUPERIOR COURT JUDGE LAB BLOOD ORDER SARAH Final Result Performing Organization Address [facility]/ZIP Co de Phone Number [address] [place] [address] * CT Head W WO Contrast (08/24/2024 11:06 PM CDT) Anatomical Region Laterality Modality Head and Neck N/A Computed Tomogra phy 08/25/2024 1:44 AM CDT Narrative 08/25/2024 1:49 AM CDT EXAM DESCRIPTION: CT HEAD W WO CONTRAST REASON FOR STUDY: Meningitis/HOSE WRAPPER infection suspected Patient is a 69 y.o. [...] specialty services including infectious disease. concern for HOSE WRAPPER infection or meningitis TECHNIQUE: Axial images acquired [...] Katina Le M.D. SN T: Report ID: [id number] Reading Location: [id number] Procedure Note Katina Le MD - 08/25/2024 EXAM DESCRIPTION: CT HEAD W WO CONTRAST REASON FOR STUDY: Meningitis/HOSE WRAPPER infection suspected Patient is a 69 y.o. [...] specialty services including infectious disease. concern for HOSE WRAPPER infection or meningitis TECHNIQUE: Axial images acquired [...] Katina Le M.D. SN T: Report ID: [id number] Reading Location: [place] [address] JUDGE IMG CT PROCEDUR ES Final Result * [...] plan with the ICU team and other medical/systems consultant staff, making frequent assessments and decisions [...] PM CDT 08/24/2024 6:39 PM CDT us [facility] LAB POCT ORDERABLES - DE VICE Final Result Performing Organization Address [facility]/ZIP Co de Phone Number [address] [place] [address] * POCT glucose (08/24/2024 4:41 PM CDT) Glucose, POC 71 70 - 199 mg/dL Glucose comment 1 RN/MD Notified [facility] Blood 08/24/2024 4:41 PM CDT 08/24/2024 4:[address] [facility] DO LAB POCT ORDERABLES - DE VICE Final Result [address] [place] [address] * (ABNORMAL) Copper, serum (08/24/2024 2:56 PM CDT) Copper 153(H) 73 - 129 mcg/dL [facility] Comment: ADDITIONAL INFORMATION This test was developed and its performance characteristics determined by [facility] in a manner consistent with CLIA requirements. This test has not been cleared or approved by the U.S. Food and Drug Administration. Test Performed by: [facility] [address] [place] [address] Merchandise Director: Henry Radford Ph.D.; CLIA# [id number] Blood 08/24/2024 2:56 PM CDT 08/24/2024 3:08 PM CDT Viky KIMBLE LAB BLOOD ORDERABLES Final Result Performing Organization Address [facility] Co de Phone Number [address] [address] [place] ref [facility] * RPR Blood (08/24/2024 2:56 PM CDT) RPR Nonreactive Nonreactive Comment:Testing performed by : [facility], [address] [place]., [address] Blood 08/24/2024 2:56 PM CDT 08/24/2024 5:46 PM CDT Viky KIMBLE LAB MICROBIOLOGY - GENERAL ORDERABLES Final Result Performing Organization Address [facility] Co de Phone Number [address] [address] * TSH (08/24/2024 2:56 PM CDT) Thyroid Stimulating Hormone 0.35 0.30 - 4.20 mcIUnit/mL Blood 08/24/2024 2:56 PM CDT 08/24/2024 3:08 PM CDT Viky KIMBLE LAB BLOOD ORDERABLES Final Result Performing Organization Address [facility] Co de Phone Number DARA [address] [address] * T4, free (08/24/2024 2:56 PM CDT) [facility] Free T4 1.25 0.90 - 1.70 ng/dL Blood 08/24/2024 2:56 PM CDT 08/24/2024 3:08 PM CDT Viky [place] LAB BLOOD ORDERABLES Final Result Performing Organization Address [facility] de Phone Number [address] [address] * (ABNORMAL) Vitamin B1 (08/24/2024 2:56 PM CDT) [facility] Thiamine (Vit B1) 67(L) 70 - 180 nmol/L [place] [facility] Comment: ADDITIONAL INFORMATION This test was developed and its performance characteristics determined by [facility] in a manner consistent with CLIA requirements. This test has not been cleared or approved by the U.S. Food and Drug Administration. Test Performed by: [facility] [place] [address] Merchandise Director: Henry Radford Ph.D.; CLIA# [id number] Blood 08/24/2024 2:56 PM CDT 08/24/2024 3:09 PM CDT Viky Lakesha KIMBLE LAB BLOOD ORDERABLES Final Result Performing Organization Address [facility] Co de Phone Number [address] [address] [place] ref [facility] * Vitamin B12 (08/24/2024 2:56 PM CDT) Vitamin B12 1,226 230 - 1,250 pg/mL Blood 08/24/2024 2:56 PM CDT 08/24/2024 3:08 PM CDT us Viky KIMBLE LAB BLOOD ORDERABLES Final Result Performing Organization Address [facility]/ZIP Co de Phone Number DARA [address] [place] [address] * Ammonia (08/24/2024 2:56 PM CDT) Ammonia 24 <=50 mcmol/L Comment: Please note on 09/29/2023 the unit of measure changed from mcg/dL to mcmol/L. Current Interpretive Data was last revised on 2023. Blood 08/24/2024 2:56 PM CDT 08/24/2024 3:01 PM CDT us Viky KIMBLE LAB BLOOD ORDERABLES Final Result Performing Organization Address [facility]/ZIP Co de Phone Number [address] [place] [address] * POCT glucose (08/24/2024 12:06 PM CDT) Glucose, POC 79 70 - 199 mg/dL Blood 08/24/2024 12:0 6 PM CDT 08/24/2024 12:06 PM CDT Ilana Houston [facility] POCT ORDERABLES - DE VICE Final Result Performing Organization Address [facility]/ZIP Co de Phone Number [address] [place] [address] * POCT glucose (08/24/2024 10:16 AM CDT) Glucose, POC 80 70 - 199 mg/dL Glucose comment 1 RN/MD Notified [facility] Blood 08/24/2024 10:1 6 AM CDT 08/24/2024 10:16 AM CDT us Ilana Mustafaell DO LAB POCT ORDERABLES - DE VICE Final Result Performing Organization Address [facility]/ZIP Co de Phone Number DARA [address] [place] [address] * POCT glucose (08/24/2024 8:51 AM CDT) Glucose, POC 70 70 - 199 mg/dL Glucose comment 1 RN/MD Notified [facility] Blood 08/24/2024 8:51 AM CDT 08/24/2024 8:51 AM CDT us Ilana Mustafaell DO LAB POCT ORDERABLES - DE VICE Final Result Performing Organization Address [facility] Co de Phone Number [place] [address] [place] [address] * Critical Care (08/24/2024 7:20 AM CDT) Narrative Ilana Houston DO - 08/24/2024 7:20 AM CDT Ilana Houston DO 08/24/2024 5:34 PM Critical Care Performed by: Rachel Montgomery NP Authorized by: Rachel Montgomery NP CRITICAL CARE: Team: [facility] Shift: AM Level of Billing: Critical Care [...] plan with the ICU team and other medical/systems consultant staff, making frequent assessments and decisions [...] in decision making Rachel Montgomery [facility] Final Result * (ABNORMAL) Reflex Hepatitis B Surface Antigen, Confirmation (08/24/2024 7:20 AM CDT) HepBsAg confirm Reactive( A) Non-React reyna Comment:Auto confirmation pe rformed Blood 08/24/2024 7:20 AM CDT 08/24/2024 7:36 AM CDT Joaquim Nguyễn MD LAB BLOOD ORDERABLES Final Resu lt [facility] [address] Department of Laboratories [place], [place] [id number] * Hepatitis B surface antibody (immune status) [...] HBsAb (immune status) index >1,000.0 mIUnits/m L [facility] Blood 08/24/2024 7:20 AM CDT 08/24/2024 7:36 AM CDT Joaquim Nguyễn MD LAB MICROBIOLOGY - GENERAL [facility] Edited Result - Final Performing Organization Address [facility] Co de Phone Number [address] [place] [address] * (ABNORMAL) Hepatitis B Surface Antigen Blood (08/24/2024 7:20 AM CDT) Pathologist [facility] [place] HepBsAg Reactive( A) Nonreactive Comment:HBV surface antigen reactivity is presumptive evidence of HBV infection. Confirmatory testing automatically performed to determine infection status. Current interpretive data was last revised on 22 Blood 08/24/2024 7:20 AM CDT 08/24/2024 7:36 AM CDT Joaquim Nguyễn MD LAB MICROBIOLOGY - [facility] [email or web address] Final Result Performing Organization Address [facility] de Phone Number [address] [address] * (ABNORMAL) eGFR (08/24/2024 6:18 AM CDT) Pathologist [facility] [place] eGFR 9(L) >=60 mL/min/1. 73 m2 Comment: [...] MD LAB BLOOD ORDERABLES Final R esult [place] [id number] [facility] Department [place] [address] * (ABNORMAL) Differential, auto (08/24/2024 6:18 AM CDT) Neutrophil abs 2.20 1.50 - 6.50 K/cumm Imm gran abs 0.02 0.00 - 0.10 K/cumm [facility] Lymphocyte abs 0.53(L) 0.80 - 3.30 K/cumm [facility] Monocyte abs 0.57 0.20 - 0.80 K/cumm [facility] Eosinophil abs 0.41 0.00 - 0.50 K/cumm [facility] Basophil abs 0.02 0.00 - 0.10 K/cumm [facility] Neutrophil pct 58.8 % [facility] Comment: Interpretive Data Percent cell count reference ranges are not reported, since discordance with absolute values may lead to misinterpretation of CBC data. Current Interpretive Data was last revised on 2017. Imm gran pct 0.5 % [facility] Comment: Interpretive Data Percent cell count reference ranges are not reported, since discordance with absolute values may lead to misinterpretation of CBC data. Current Interpretive Data was last revised on 2017. Lymphocyte pct 14.1 % [facility] Comment: Interpretive Data Percent cell count reference ranges are not reported, since discordance with absolute values may lead to misinterpretation of CBC data. Current Interpretive Data was last revised on 2017. Monocyte pct 15.2 % [facility] Comment: Interpretive Data Percent cell count reference ranges are not reported, since discordance with absolute values may lead to misinterpretation of CBC data. Current Interpretive Data was last revised on 2017. Eosinophil pct 10.9 % [facility] Comment: Interpretive Data Percent cell count reference ranges are not reported, since discordance with absolute values may lead to misinterpretation of CBC data. Current Interpretive Data was last revised on 2017. Basophil pct 0.5 % [facility] Comment: Interpretive Data Percent cell count reference ranges are not reported, since discordance with absolute values may lead to misinterpretation of CBC data. Current Interpretive Data was last revised on 2017. Blood 08/24/2024 6:18 AM CDT 08/24/2024 6:24 AM CDT us Isidro Daigle MD LAB BLOOD ORDERABLES Final R esult [place] [id number] [facility] Department [place] [address] * (ABNORMAL) CBC with auto differential (08/24/2024 6:18 AM CDT) WBC 3.75(L) 3.80 - 9.90 K/cumm Hgb 10.1(L) 13.0 - 17.5 g/dL [facility] Hct 32.8(L) 38.9 - 50.3 % [facility] Plt 64(L) 150 - 400 K/cumm [facility] MPV 10.8 9.1 - 12.3 fL [facility] RBC 3.30(L) 4.30 - 5.80 M/cumm [facility] MCV 99.4(H) 81.3 - 96.4 fL [facility] MCH 30.6 27.1 - 33.3 pg [facility] MCHC 30.8(L) 32.3 - 35.7 g/dL [facility] RDW CV 18.8(H) 11.1 - 14.9 % [facility] RDW SD 68.8(H) 35.7 - 48.1 fL [facility] NRBC abs 0.00 0.00 - 0.01 K/cumm [facility] Blood 08/24/2024 6:18 AM CDT 08/24/2024 6:24 AM CDT us Isidro Daigle MD LAB BLOOD ORDERABLES Final R esult Performing Organization Address [facility] de Phone Number [address] [place] [address] * (ABNORMAL) Phosphorus (08/24/2024 6:18 AM CDT) Phosphorus, pl 5.1(H) 2.3 - 4.5 mg/dL Blood 08/24/2024 6:18 AM CDT 08/24/2024 6:24 AM CDT [facility] BLOOD ORDERABLES Fin al Result Performing Organization Address [facility] de Phone Number [address] [place] [address] * Magnesium (08/24/2024 6:18 AM CDT) Magnesium 2.1 1.4 - 2.5 mg/dL Blood 08/24/2024 6:18 AM CDT 08/24/2024 6:24 AM CDT us [facility] LAB BLOOD ORDERABLES Fin al Result Performing Organization Address [facility] de Phone Number [address] [place] [address] * Vancomycin level random (08/24/2024 6:18 AM CDT) Vancomycin random 20.6 mcg/mL Comment: Interpretive Data No reference ranges have been established for random drug levels. Current Interpretive Data was last revised on 2020. Blood 08/24/2024 6:18 AM CDT 08/24/2024 6:24 AM CDT Rachel Montgomery NP LAB BLOOD ORDER SARAH Final Result [facility] [address] [facility] Department [place] [address] * (ABNORMAL) Comprehensive metabolic panel (08/24/2024 6:18 AM CDT) Sodium 142 135 - 145 mmol/L Potassium, pl 4.4 3.3 - 4.9 mmol/L [facility] Chloride 102 97 - 110 mmol/L [facility] CO2 27 22 - 32 mmol/L [facility] Anion gap 13 2 - 15 mmol/L [facility] BUN 20 6 - 25 mg/dL [facility] Creatinine 6.33(H) 0.80 - 1.30 mg/dL [facility] Glucose 75 70 - 199 mg/dL [facility] Comment: Interpretive Data Fasting glucose >/= [...] 2022. Calcium 8.5 8.5 - 10.3 mg/dL [facility] Bilirubin, total 0.3 0.1 - 1.2 mg/dL [facility] Protein, pl 7.6 6.5 - 8.5 g/dL [facility] Albumin 3.8 3.5 - 5.0 g/dL [facility] Alk phos 60 40 - 130 Units/L [facility] ALT 25 7 - 55 Units/L [facility] AST 32 10 - 50 Units/L [facility] Blood 08/24/2024 6:18 AM CDT 08/24/2024 6:24 AM CDT Isidro Daigle MD LAB BLOOD ORDERABLES Final R esult [facility] [address] [facility] Department [place] [address] * Critical Care (08/23/2024 10:45 PM CDT) Narrative Harjit Levy MD - 08/23/2024 10:45 PM CDT Harjit Levy MD 08/24/2024 2:26 AM Critical Care Performed by: Harjit Levy MD Authorized by: Harjit Levy MD CRITICAL CARE: Team: CARMEN Shift: PM Level of Billing: Critical Care [...] plan with the ICU team and other medical/systems consultant staff, making frequent assessments and decisions [...] CBC without differential (08/23/2024 9:14 PM CDT) [facility] WBC 2.88(L) 3.80 - 9.90 K/cumm Hgb 10.3(L) 13.0 - 17.5 g/dL DARA Hct 34.8(L) 38.9 - 50.3 % DARA Plt 57(L) 150 - 400 K/cumm [facility] MPV 10.5 9.1 - 12.3 fL [facility] RBC 3.41(L) 4.30 - 5.80 M/cumm [facility] MCV 102.1(H) 81.3 - 96.4 fL [facility] MCH 30.2 27.1 - 33.3 pg [facility] MCHC 29.6(L) 32.3 - 35.7 g/dL [facility] RDW CV 19.1(H) 11.1 - 14.9 % [facility] RDW SD 72.2(H) 35.7 - 48.1 fL [facility] NRBC abs 0.00 0.00 - 0.01 K/cumm [facility] Blood 08/23/2024 9:14 PM CDT 08/23/2024 9:17 PM CDT Rachel Montgomery SUPERIOR COURT JUDGE LAB BLOOD ORDER SARAH Final Result Performing Organization Address [facility]/ZIP Co de Phone Number [address] [place] [address] * POCT glucose (08/23/2024 8:36 PM CDT) [facility] Glucose, POC 76 70 - 199 mg/dL Blood 08/23/2024 8:36 PM CDT 08/23/2024 8:36 PM CDT us Ilana Houston DO LAB POCT ORDERABLES - DE VICE Final Result Performing Organization Address [facility]/ZIP Co de Phone Number [address] [place] [address] * G6PD qualitative with reflex to quantitative (08/23/2024 8:18 PM CDT) [facility] G6PD Normal Normal Comment: Interp data: G6PD activity should be interpreted in the context of a patient's hematocrit. Hematocrit < 20% may lead to a falsely deficient result, while hematocrit > 50% may lead to a falsely normal result. Current interpretive data was last revised on 2019. Testing performed by: [facility], [address] [place]., [address] Blood 08/23/2024 8:18 PM CDT 08/24/2024 5:01 AM CDT Isidro Daigle MD LAB BLOOD ORDERABLES Final R esult Performing Organization Address [facility] Co de Phone Number [address] [address] * Lactate (08/23/2024 8:18 PM CDT) [facility] Lactate 1.0 0.7 - 2.0 mmol/L Blood 08/23/2024 8:18 PM CDT 08/23/2024 8:34 PM CDT Rachel Montgomery NP LAB BLOOD ORDER SARAH Final Result Performing Organization Address [facility] de Phone Number [address] [address] * Cryptococcal Antigen, Serum Blood (08/23/2024 8:18 PM CDT) [facility] Cryptococcus ag, Serum Negative Negative Comment: The [...] data last revised 2018. Testing performed by: [facility], [address] [place] [address] Blood 08/23/2024 8:18 PM CDT 08/24/2024 5:12 AM CDT us Isidro Daigle MD LAB MICROBIOLOGY - GENERAL O RDERABLES Final Result D[facility] [address] [facility] Department [place] [address] * CTA Chest Abdomen Pelvis (08/23/2024 6:39 [...] Kwan Smith M.D. KT T: Report ID: [id number] Reading Location: [id number] Procedure Note Kwan Smith MD - 08/23/2024 [...] Kwan Smith M.D. KT T: Report ID: [id number] Reading Location: [place] [address] Montgomery NP IM CT PROCEDUR ES Final Result * (ABNORMAL) Pneumonia PCR with aerobic culture and Gram stain Tracheal aspirate Tracheal (:12 PM CDT) Direct Specimen Exam Stain: Rare polymorphonuclear leukocytes seen. Abundant squamous epithelial cells seen indicating excessive oral pharyngeal contamination Moderate Gram Positive Cocci Comment:Testing performed by : [facility], [address] [place] [address]., [id number] Direct Specimen Exam Molecular Analysis: Abundant squamous epithelial cells observed on Gram stain. Specimen will not be processed for rapid molecular analysis. DARA Comment:Testing performed by : [facility], [address] [place] [address]., [id number] Report Final Report: Growth indicates upper respiratory janell. (.) DARA Comment:Testing performed by : [facility], [address] [place]., [address] Organism GROWTH INDICATES UPPER RESPIRATORY JANELL. DARA Tracheal aspirate (Tracheal) 08/23/2024 5:12 PM CDT 08/23/2024 10:02 PM CDT Narrative DARA - 08/26/2024 9:31 AM CDT When rapid molecular testing results are reported, testing completed using the [employer] Pneumonia Panel. This molecular assay detects: Acinetobacter [...] performance characteristics have been confirmed by the [facility]. The performance of the [employer] Pneumonia Panel has not been established for monitoring treatment of infection and bacterial nucleic acids may persist independent of organism viability. Chelo De NP LAB MICROBIOLOGY - [facility] ORDERABLES Final Result [facility]TON[facility] [address] [facility] Department [place] [address] * Infection Prevention MRSA Only (Staphylococcus aureus) PCR Nasal (08/23/2024 5:12 PM CDT) [facility] PCR Scrn, Methicillin resistant Staphylococcus aureus (MRSA) Not Detected Not Detected Comment: Interpretive Data Testing performed using Nucleic Acid Amplification with the [employer] Xpert MRSA NxG Assay. This assay detects target DNA from mecA, mecC and the SCCmec insertion site of Staphylococcus aureus using Real-Time PCR and has been cleared by the FDA. Performance characteristics have been verified by the [facility]. Current Interpretive Data was last revised on 2023 Nasal 08/23/2024 5:12 PM CDT 08/23/2024 5:15 PM CDT Chelo De NP LAB MICROBIOLOGY - GE NERAL ORDERABLES Final Result Performing Organization Address [facility] Co de Phone Number DARA NORRIS [address] [place] [address] Department [place] [address] * Blood culture Blood (08/23/2024 4:19 PM CDT) Report Final Report: No growth Comment:Testing performed by : [facility], [address] [place] [address] Blood 08/23/2024 4:19 PM CDT 08/23/2024 8:21 [...] performance characteristics have been verified by the [facility] Microbiology Laboratory. For questions about this culture, contact the Microbiology Laboratory at [phone]. Interpretive data was last revised on 24. Chelo De NP LAB MICROBIOLOGY - GE NERAL ORDERABLES Final Result Performing Organization Address [facility]/ZIP Co de Phone Number DARA NORRIS [address] Department [place] [address] * (ABNORMAL) POC Blood Gas and Chemistries, Arterial - (08/23/2024 4:13 PM CDT) pH, art POC 7.40 7.35 - 7.45 pCO2, art POC 52(H) 35 - 45 mmHg [facility] pO2, art POC 75(L) 83 - 108 mmHg [facility] HCO3, art (Calc) POC 32(H) 20 - 30 mmol/L [facility] Base excess, art POC 6 mmol/L [facility] Comment: Interpretive Data No reference range established. Current interpretive data was last revised 2020. O2 Sat, art (Calc) POC 96 94 - 98 % [facility] Oxy Hgb, art POC 93.2 90.0 - 95.0 % [facility] Met Hgb, art POC 0.4 0.0 - 1.9 % [facility] Carboxy Hgb, art POC 2.4 0.0 - 2.9 % [facility] Hemoglobin, art POC 10.7(L) 13.0 - 17.5 g/dL [facility] Sodium, art POC 142 135 - 145 mmol/L [facility] Potassium, art POC 4.0 3.3 - 4.9 mmol/L [facility] Comment: Interpretive Data This method is not able to assess for hemolysis, which may falsely increase potassium concentrations. If further testing is needed to evaluate this result, consider in-laboratory plasma potassium. Current Interpretive Data was last revised on 2022. Glucose, art POC 85 70 - 199 mg/dL [facility] Ionized Calcium, art POC 4.54 4.50 - 5.10 mg/dL [facility] Lactate, art POC 1.2 0.7 - 2.0 mmol/L [facility] Blood 08/23/2024 4:13 PM CDT 08/23/2024 4:13 PM CDT us Ilana Houston DO LAB POCT ORDERABLES - DE VICE Final Result DARA NORRIS [address] [facility] Department [place] [address] * (ABNORMAL) Lactate (08/23/2024 4:10 PM CDT) Lactate 2.3(H) 0.7 - 2.0 mmol/L Blood 08/23/2024 4:10 PM CDT 08/23/2024 5:03 PM CDT Chelo De [address]IOR [address] JUDGE LAB BLOOD ORDERABLES Final Result Performing Organization Address [facility] Co de Phone Number DARA [address] [place] [address] * (ABNORMAL) eGFR (08/23/2024 4:10 PM CDT) Pathologist [facility] [place] eGFR 12(L) >=60 mL/min/1. 73 m2 Comment: [...] CDT 08/23/2024 5:01 PM CDT Chelo De NP LAB BLOOD ORDERABLES Final Result Performing Organization Address [facility]/ZIP Co de Phone Number [address] [place] [address] * (ABNORMAL) Differential, auto (08/23/2024 4:10 PM CDT) Neutrophil abs 2.72 1.50 - 6.50 K/cumm Imm gran abs 0.01 0.00 - 0.10 K/cumm [facility] Lymphocyte abs 0.53(L) 0.80 - 3.30 K/cumm [facility] Monocyte abs 0.42 0.20 - 0.80 K/cumm [facility] Eosinophil abs 0.32 0.00 - 0.50 K/cumm [facility] Basophil abs 0.02 0.00 - 0.10 K/cumm [facility] Neutrophil pct 67.7 % [facility] Comment: Interpretive Data Percent cell count reference ranges are not reported, since discordance with absolute values may lead to misinterpretation of CBC data. Current Interpretive Data was last revised on 2017. Imm gran pct 0.2 % [facility] Comment: Interpretive Data Percent cell count reference ranges are not reported, since discordance with absolute values may lead to misinterpretation of CBC data. Current Interpretive Data was last revised on 2017. Lymphocyte pct 13.2 % [facility] Comment: Interpretive Data Percent cell count reference ranges are not reported, since discordance with absolute values may lead to misinterpretation of CBC data. Current Interpretive Data was last revised on 2017. Monocyte pct 10.4 % [facility] Comment: Interpretive Data Percent cell count reference ranges are not reported, since discordance with absolute values may lead to misinterpretation of CBC data. Current Interpretive Data was last revised on 2017. Eosinophil pct 8.0 % [facility] Comment: Interpretive Data Percent cell count reference ranges are not reported, since discordance with absolute values may lead to misinterpretation of CBC data. Current Interpretive Data was last revised on 2017. Basophil pct 0.5 % [facility] Comment: Interpretive Data Percent cell count reference ranges are not reported, since discordance with absolute values may lead to misinterpretation of CBC data. Current Interpretive Data was last revised on 2017. Blood 08/23/2024 4:10 PM CDT 08/23/2024 4:59 PM CDT Chelo De [address]IOR COURT JUDGE LAB BLOOD ORDERABLES Final Result DARA [address] [address] * Calcium, ionized (08/23/2024 4:10 PM CDT) [facility] Calcium, Ionized 4.54 4.50 - 5.10 mg/dL Blood 08/23/2024 4:10 PM CDT 08/23/2024 5:00 PM CDT Chelo De [address]IOR [address] JUDGE LAB BLOOD ORDERABLES Final Result Performing Organization Address [facility] Co de Phone Number DARA [address] [address] * (ABNORMAL) CBC with auto differential (08/23/2024 4:10 PM CDT) [facility] WBC 4.02 3.80 - 9.90 K/cumm Hgb 10.5(L) 13.0 - 17.5 g/dL [facility] Hct 35.1(L) 38.9 - 50.3 % [facility] Plt 81(L) 150 - 400 K/cumm [facility] MPV 10.2 9.1 - 12.3 fL [facility] RBC 3.57(L) 4.30 - 5.80 M/cumm [facility] MCV 98.3(H) 81.3 - 96.4 fL [facility] MCH 29.4 27.1 - 33.3 pg [facility] MCHC 29.9(L) 32.3 - 35.7 g/dL [facility] RDW CV 18.9(H) 11.1 - 14.9 % [facility] RDW SD 69.2(H) 35.7 - 48.1 fL [facility] NRBC abs 0.00 0.00 - 0.01 K/cumm [facility] Blood 08/23/2024 4:10 PM CDT 08/23/2024 4:59 PM CDT Result [facility] Chelo De [address]IOR [address] JUDGE LAB BLOOD ORDERABLES Final Result Performing Organization Address [facility]/ZIP Co de Phone Number [address] [address] * ABO/Rh (08/23/2024 4:10 PM CDT) ABO/Rh O Positive Blood 08/23/2024 4:10 PM CDT 08/23/2024 4:58 PM CDT Narrative DARA - 08/23/2024 5:35 PM CDT Has the patient had Daratumumab or Isatuximab in the past 6 months?->Unknown Chelo De [address]PERIOR [address] JUDGE LAB BLOOD BANK TEST O RDERABLES Final Result Performing Organization Address [facility] Co de Phone Number ANTONI[address] [address] * Blood culture Blood (08/23/2024 4:10 PM CDT) Report Final Report: No growth Comment:Testing performed by : [facility], [address] [place] [address] Blood 08/23/2024 4:10 PM CDT 08/23/2024 8:21 PM CDT Narrative [facility] [place] - 08/28/2024 7:01 AM CDT Collection->Peripheral 1. [...] performance characteristics have been verified by the [facility]. For questions about this culture, contact the Microbiology Laboratory at [phone]. Interpretive data was last revised on 24. Chelo De NP LAB MICROBIOLOGY - NERAL ORDERABLES Final Result Performing Organization Address City[facility] Co de Phone Number DARA [address] [address] * (ABNORMAL) T-helper cells (CD4) count (08/23/2024 4:10 PM CDT) Pathologist [facility] [place] CD4 pct 13(L) 31 - 64 % Comment:Testing performed by : [facility], [address] [place] [address] CD4 Absolute 65(L) 365 - 1,294 cells/mcL DARA Comment:Testing performed by : [facility], [address] [place] [address] Blood 08/23/2024 4:10 PM CDT 08/23/2024 8:01 PM CDT Chelo De NP LAB BLOOD ORDERABLES Final Result Performing Organization Address [facility] Co de Phone Number [address] [place] [address] * Antibody screen (08/23/2024 4:10 PM CDT) Edelmira, indirect, Gel Interpretation Negative ABSC Blood 08/23/2024 4:10 PM CDT 08/23/2024 4:58 PM CDT Narrative DARA - 08/23/2024 5:35 PM CDT Has the patient had Daratumumab or Isatuximab in the past 6 months?->Unknown Chelo De SUPERIOR COURT JUDGE LAB BLOOD BANK TEST O RDERABLES Final Result Performing Organization Address [facility] Co de Phone Number [address] [place] [address] * Phosphorus (08/23/2024 4:10 PM CDT) [facility] Phosphorus, pl 3.5 2.3 - 4.5 mg/dL Blood 08/23/2024 4:10 PM CDT 08/23/2024 5:01 PM CDT Chelo De [address]PERIOR [address] JUDGE LAB BLOOD ORDERABLES Final Result Performing Organization Address [facility] de Phone Number [address] [place] [address] * Magnesium (08/23/2024 4:10 PM CDT) [facility] Magnesium 2.1 1.4 - 2.5 mg/dL Blood 08/23/2024 4:10 PM CDT 08/23/2024 5:01 PM CDT Chelo De [address]IOR [address] JUDGE LAB BLOOD ORDERABLES Final Result Performing Organization Address [facility] Co ia Phone Number [address] [address] * (ABNORMAL) Comprehensive metabolic panel (08/23/2024 4:10 PM CDT) [facility] Sodium 144 135 - 145 mmol/L Potassium, pl 4.0 3.3 - 4.9 mmol/L [facility] Chloride 103 97 - 110 mmol/L [facility] CO2 28 22 - 32 mmol/L [facility] Anion gap 13 2 - 15 mmol/L [facility] BUN 15 6 - 25 mg/dL [facility] Creatinine 4.95(H) 0.80 - 1.30 mg/dL [facility] Glucose 78 70 - 199 mg/dL [facility] Comment: Interpretive Data Fasting glucose >/= [...] 2022. Calcium 8.9 8.5 - 10.3 mg/dL [facility] Bilirubin, total 0.4 0.1 - 1.2 mg/dL [facility] Protein, pl 8.3 6.5 - 8.5 g/dL [facility] Albumin 4.1 3.5 - 5.0 g/dL [facility] Alk phos 66 40 - 130 Units/L [facility] ALT 29 7 - 55 Units/L [facility] AST 36 10 - 50 Units/L [facility] Blood 08/23/2024 4:10 PM CDT 08/23/2024 5:01 PM CDT us Chelo De NP LAB BLOOD ORDERABLES Final Result Performing Organization Address City/State/[facility] Co de Phone Number DARA NORRIS [address] [facility] Department [place] [address] * X-ray chest 1 view (Portable) (08/23/2024 [...] signed by Kwan RAPP T: Report ID: [id number] Reading Location: [id number] Procedure Note Kwan Caceres MD - 08/23/2024 [...] signed by Kwan RAPP T: Report ID: [id number] Reading Location: [id number] us Chelo De [address]PERIOR COURT JUDGE IMG XR PROCEDURES Fin al Result * [...] signed by Kwan RAPP T: Report ID: [id number] Reading Location: [id number] Procedure Note Kwan Caceres MD - 08/23/2024 [...] signed by Kwan RAPP T: Report ID: [id number] Reading Location: [id number] Chelo De NP IMG XR PROCEDURES Fin al Result * Critical Care (08/23/2024 3:45 PM CDT) Narrative Ilana Houston DO - 08/23/2024 3:45 PM CDT Ilana Houston DO 08/24/2024 5:33 PM Critical Care Performed by: Rahcel Montgomery NP Authorized by: Rachel Montgomery NP CRITICAL CARE: Team: [facility] Shift: AM Level of Billing: Critical Care [...] plan with the ICU team and other medical/systems consultant staff, making frequent assessments and decisions [...] REPRODUCTIVE: The prostate is enlarged. VASCULATURE ABDOMEN: [id number] amount of atherosclerotic plaque in the aorta [...] Kerwin Freedman M.D. AM: AM Report ID: [id number] Reading Location: [id number] Procedure Note Kerwin Freedman MD - 08/22/2024 [...] REPRODUCTIVE: The prostate is enlarged. VASCULATURE ABDOMEN: Gcujelzj-sg-vsfry amount of atherosclerotic plaquein the aorta and [...] Kerwin Freedman M.D. AM: AM Report ID: [id number] Reading Location: [id number] Matteo Osmar Brooks MD IMG CT PROCEDURES Fi [...] Alf Rios M.D. MZ T: Report ID: [id number] Reading Location: [id number] Narrative 08/01/2024 10:02 AM CDT EXAM DESCRIPTION: [...] Alf Rios M.D. MZ T: Report ID: [id number] Reading Location: [id number] Procedure Note Alf Rios MD - 08/01/2024 [...] Alf Rios M.D. MZ T: Report ID: [id number] Reading Location: [id number] Merrick Aguirre NP IMG XR PROCEDURES Edited Result - Final * (ABNORMAL) Influenza A/B, RSV, and COVID-19 PCR Nasopharyngeal (07/28/2024 6:01 PM EMERGENCY DEPARTMENT COORDINATOR) Pathologist [facility] [place] COVID-19 RNA Negative Negative [facility] Influenza A RNA Negative Negative CERNER Influenza B RNA Negative Negative CERNER RSV RNA Positive(A) Negative [facility] Comment: Interpretive data: Testing performed by [facility]. This test is performed using the [employer] Xpert Xpress CoV-2/Flu/RSV plus assay. This is a multiplex, real-time reverse transcriptase PCR assay intended for the qualitative detection of nucleic acid from SARS-CoV-2, influenza A, influenza B, and respiratory syncytial virus. This assay has been cleared by the [place] Food and Drug administration. The performance characteristics have been verified by the [facility]. Results must be considered in the clinical context, and a negative result does not rule out infection. Interpretive Data last revised 2023 Nasopharyngeal 07/28/2024 6: 01 PM EMERGENCY DEPARTMENT COORDINATOR 07/28/2024 11:48 PM EMERGENCY DEPARTMENT COORDINATOR Narrative DARA - 07/29/2024 12:31 AM EMERGENCY DEPARTMENT COORDINATOR Is the Patient experiencing symptoms consistent with COVID?->Yes Reason for testing?->Symptomatic Known exposure to confirmed or suspected COVID-19 case?->No Merrick Aguirre NP LAB MICROBIOLOGY - GENERAL BLANK WEBB Final Result DARA [address] Department [place] [address] * TB test, quantiferon gold (01/21/2024 10:15 AM CDT) [facility] Quantiferon TB Gold Negative Negative [facility] Comment: No interferon-gamma response to [...] Interferon-gamma level <0.35 IU/mL. TB-Nil 0.00 IUnits/mL [facility] TB2-Nil 0.01 IUnits/mL [facility] Mitogen-Nil >10.00 IUnits/mL [facility] NIL 0.02 IUnits/mL DARA NORRIS Comment: Test Performed by: [facility] [address] [place] [address] Merchandise Director: Henry Radford Ph.D.; CLIA# [id number] Blood 01/21/2024 10:1 5 AM CDT 01/21/2024 10:35 AM CDT Negrito Amaya MD LAB BLOOD ORDERABLES Trina l Result Performing Organization Address [facility] Co de Phone Number DARA [address] [facility] Department [place] [address] [facility] * (ABNORMAL) Hepatitis C antibody Blood [...] GENERAL ORDERABLES Final Result Performing Organization Address [facility]/ZIP Co de Phone Number DARA [address] [address] Department of Laboratories [place], [place] [id number] * Lipid panel (11/02/2023 8:03 PM CDT) Pathologist [facility] [place] Cholesterol 189 30 - 199 mg/dL Comment: [...] on 2018. Triglycerides 79 <=149 mg/dL DARA SCHAWRTZ Comment: Interpretive Data Ages < or = [...] ORDERAB LES Final Result Performing Organization Address [facility]/ZIP Co de Phone Number DARA EFREN [address] [place] [address] * (ABNORMAL) Hepatitis A antibody, total Blood (11/02/2023 7:48 PM CDT) Hep A total Reactive( A) Nonreactive Comment:Testing performed by : [facility], [address] [place]., [address] Blood 11/02/2023 7:48 PM CDT 11/03/2023 10:02 AM CDT Bhavesh Mariano MD LAB MICROBIOLOGY - GENERAL ORDERABLES Final Result ANTONIETTAELLEN SCHWARTZ [address] [address] Department [place] [address] * (ABNORMAL) Urinalysis reflex to microscopic and culture Urine (03/12/2023 1:13 AM CDT) Color, ur Yellow Yellow Clarity, ur Clear Clear [facility] Specific gravity, ur 1.009 1.003 - 1.030 [facility] pH, urine 5.0 [facility] Comment: Interpretive Data U rine pH is affected by diet, medications, systemic acid-base disturbances, and renal tubular function. pH may affect urinary stone formation. For example, urine pH below 6.0 may help reduce the tendency for calcium phosphate stones and pH greater than 6.0 may reduce the tendency for uric acid stone formation. Source: [facility] Current Interpretive Data was last revised on 2017 Protein, ur ql 3+(A) Negative [facility] Glucose, ur ql Negative Negative [facility] Ketones, ur Negative Negative [facility] Bilirubin, ur Negative Negative [facility] Blood, ur 3+(A) Negative [facility] Urobilinogen, ur <2.0 <2.0 mg/dL [facility] Nitrite, ur Negative Negative [facility] Leukocyte esterase, ur 1+(A) Negative [facility] UA reflex comment Reflex to microscopic UA will be performed. [facility] Urine 03/12/2023 1:13 AM CDT 03/12/2023 1:27 AM CDT us Trey Pritchett MD LAB MICROBIOLOGY - GENERAL O RDERABLES Final Result DARA [address] [facility] Department of Laboratories [place], [place] [phone] from Last 3 Months or Most Recently Relevant to Health Maintenance
--- OUTSIDE RECORDS SUMMARY | 2024-09-27 21:16 | XMS_ITS | Encounter Summary ---
Author Organization [facility] Address [address] [place] [address] Phone Care Team Providers Care Voltage Regulator Assembler Name Role Phone Josh Parham MD Primary Care Provider [phone] Matteo Brooks MD Unavailable + [phone] Gerson Keith MD Unavailable [phone] Cassie Márquez MD Unavailable Beatriz TO MD, Lyman Lansing Unavailable Beatriz TO MD, Lyman Lansing Unavailable David Gorman MD Unavailable [phone] Blayne Sepulveda MD Unavailable [phone] Gerson Forrester DO Unavailable [phone] Idris Sanchez MD Primary Care Provi simba Teddy Hull MD Unavailable [phone] No, Physician Primary Care Provider [phone] Encounter Details Date Type Department Care Team (Late st Contact Info) Description 12/17/2023 Conference of Physicians/Providers [facility] Physicians [facility] Oncology [address] [facility] [address] [place] [address] Addis Uriarte, RN Social History Tobacco Use Types Packs/Day Years Used Date Smoking Tobacco: Some Days Cigarettes 0.3 10 Passive Smoke Exposure: Never Smokeless Tobacco: Never Comments:Last cigarette 04/24 0 Alcohol Use Standard Drinks/Week Comments Not Currently 0 (1 standard drink = 0.6 oz pur e alcohol) [facility] Utilities Answer Date Recorded In the past 12 months has th e [employer], gas, oil, or water [employer] threatened to shut off services in your [...] week 10/11/2023 How often do you attend [facility] ch or druze services? Never 10/11/2023 Do you belong to any clubs o r organizations such as catholic groups, unions, fraternal or athletic groups, [...] in a longterm (including now)? No 08/30/2023 Housing Stability Vital Sign Answer Tk e Recorded In the last 12 months, was t here a time when you were not able to pay the mortgage or rent on time? No 10/11/2023 In the past 12 months, how m any times have you moved where you were living? 1 10/11/2023 At any time in the past 12 m [facility], were you homeless or living in a longterm (including now)? No 10/11/2023 Personal Safety Answer Date Recorded Have you ever been in or are you currently in a harmful physical or emotional relationship or is someone making you feel afraid or unsafe? Denies 10/10/2023 Sex and Gender Information Value Date Recorded Sex Assigned at Not on file Legal Sex Male 11:35 AM SIDE BOSS Gender Identity Not on file Sexual Orientation Not on file documented as of this encounter Plan of Treatment Upcoming Encounters Date Type Department Care Team (Latest Contact Info) Description 10/05/2024 7:30 AM CDT Hospital Encounter [facility] OR [facility] [place] [address] Seth Henderson IV, MD [address] [place] [address] [id number] 10/05/2024 7:30 AM CDT - 10/05/2024 9:00 AM CDT Surgery [facility] OR [facility] [place] [address] Seth Henderson IV, MD [address] [facility] [address] [place] [address] RECTAL EXAM UNDER ANESTHESIA WITH EXCISION ANAL [...] COVID: Suspected 07/28/2024 07/28/2024 07/29/2024 12:32 AM SIDE BOSS RSV, droplet 07/28/2024 07/28/2024 08/04/2024 3:05 AM CDT Meningitis, bacterial, dropl et Comment:Per Dr Daigle, patient may be removed from isolation 08/24/2024 08/24/2024 08/28/2024 11:49 AM CDT documented as of this encounter Care Teams Voltage Regulator Assembler Relationship Specialty Start Date End Date Josh Parham MD PCP - General Internal Medicine 06/12/21 05/17/24 Idris Sanchez MD [address] [facility] [address] [place] [address] PCP - General Family Practice 05/18/24 09/23/24 No, Physician PCP - General 09/24/24 Matteo Brooks MD [address] [facility], [address] [address] Medical Oncologist/Mosquito Sprayer Medical Oncology 03/31/23 Gerson Keith MD [address] [facility], [address] [address] Consulting Physician Nephrology 05/07/23 Cassie Márquez MD [address] [facility] [place] [address] Consulting Physician Family Medicine 06/25/23 Seth Henderson IV, MD [address] [place] [address] Consulting Physician General Surgery 10/21/23 Seth Henderson IV, MD [address] [place] [address] Consulting Physician General Surgery 10/21/23 David Gorman MD [address] [place] [address] Radiation Oncologist Radiation Oncology 10/21/23 Blayne Sepulveda MD [address] [place] [address] Consulting Physician General Surgery 03/10/24 Gerson Forrester DO [address] [place] [address] Consulting Physician General Surgery 03/14/24 Teddy Hull MD [address] [address] Consulting Physician Cardiology 09/22/24 documented as of this encounter
--- OUTSIDE RECORDS SUMMARY | 2024-09-27 21:16 | XMS_ITS | Encounter Summary ---
Author Organization [facility] Address [address] [place] [address] Care Team Providers Care Agency Sales Management Assistant Name Role Phone Josh Parham MD Primary Care Provider [phone] Matteo Brooks MD Unavailable + [phone] Gerson Keith MD Unavailable Cassie Márquez MD Unavailable Beatriz TO MD, Seth Vasquez Unavailable Beatriz TO MD, Lyman Lansing Unavailable [phone] David Gorman MD Unavailable [phone] Blayne Sepulveda MD Unavailable Gerson Forrester DO Unavailable [phone] Idris Sanchez MD Primary Care Provi simba Teddy Hull MD Unavailable [phone] No, Physician Primary Care Provider Encounter Details Date Type Department Care Team (Late st Contact Info) Description 01/11/2024 Telephone [facility] at [facility] [address] [facility] [address] [place] [address] Dany Aguirre MD [address] [facility] [address] [place] [address] [place] [address] Social History Tobacco Use Types Packs/Day Years Used Date Smoking Tobacco: Some Days Cigarettes 0.3 10 Passive Smoke Exposure: Never Smokeless Tobacco: Never Comments:Last cigarette 04/24 0 Alcohol Use Standard Drinks/Week Comments Not Currently 0 (1 standard drink = 0.6 oz pur e alcohol) [facility] Utilities Answer Date Recorded In the past 12 months has e electric, gas, oil, or water [employer] threatened to shut off services in your [...] often do you attend chur ch or baptist services? Never 10/11/2023 Do you belong to any clubs o r organizations such as evangelical groups, unions, fraternal or athletic groups, or [...] in a long-term (including now)? No 08/30/2023 Housing Stability Vital Sign Answer Tk e Recorded In the last 12 months, was t here a time when you were not able to pay the mortgage or rent on time? No 10/11/2023 In the past 12 months, how m any times have you moved where you were living? 1 10/11/2023 At any time in the past 12 m [facility], were you homeless or living in a long-term (including now)? No 10/11/2023 Personal Safety Answer Date Recorded Have you ever been in or are you currently in a harmful physical or emotional relationship or is someone making you feel afraid or unsafe? 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 Gender Identity Not on file Sexual Orientation Not on file documented as of this encounter Plan of Treatment Upcoming Encounters Date Type Department Care Team (Latest Contact Info) Description 10/05/2024 7:30 AM CDT Hospital Encounter [facility] OR [address] [place] [address] Seth Henderson IV, MD [address] [place] [id number] 10/05/2024 7:30 AM CDT - 10/05/2024 9:00 AM CDT Surgery [facility] [place] [address] [place] [address] Seth Henderson IV, MD [address] [facility] [address] [place] [address] RECTAL EXAM UNDER ANESTHESIA WITH EXCISION ANAL [...] COVID: Suspected 07/28/2024 07/28/2024 07/29/2024 12:32 AM REGIONAL OPERATIONS MANAGER RSV, droplet 07/28/2024 07/28/2024 08/04/2024 3:05 AM CDT Meningitis, bacterial, dropl et Comment:Per Dr Daigle, patient may be removed from isolation 08/24/2024 08/24/2024 08/28/2024 11:49 AM CDT documented as of this encounter Care Teams Agency Sales Management Assistant Relationship Specialty Start Date End Date Josh Parham MD PCP - General Internal Medicine 06/12/21 05/17/24 Idris Sanchez MD [address] [facility] [address] [place] [address] PCP - General Family Practice 05/18/24 09/23/24 No, Physician PCP - General 09/24/24 Matteo Brooks MD [address] [facility], [address] [address] Medical Oncologist/Commercial Litigation Paralegal Medical Oncology 03/31/23 Gerson Keith MD [address] [facility], [address] [address] Consulting Physician Nephrology 05/07/23 Cassie Márquez MD [address] [facility] [place] [address] Consulting Physician Family Medicine 06/25/23 Seth Henderson IV, MD [address] [place] [address] [phone] Consulting Physician General Surgery 10/21/23 Seth Henderson IV, MD [address] [place] [address] Consulting Physician General Surgery 10/21/23 David Gorman MD [address] [place] [address] Radiation Oncologist Radiation Oncology 10/21/23 Blayne Sepulveda MD [address] [place] [address] Consulting Physician General Surgery 03/10/24 Gerson Forrester DO [address] [place] [phone] Consulting Physician General Surgery 03/14/24 Teddy Hull MD [address] [address] Consulting Physician Cardiology 09/22/24 documented as of this encounter
--- OUTSIDE RECORDS SUMMARY | 2024-09-27 21:16 | XMS_ITS | Encounter Summary ---
Author Organization [facility] Address [address] [place] [address] Phone Care Team Providers Care Hearing Dog Trainer Name Role Phone Josh Parham MD Primary Care Provider [phone] David Gorman MD Unavailable [phone] Matteo Brooks MD Unavailable + [phone] Gerson Keith MD Unavailable Cassie Márquez MD Unavailable Beatriz TO MD, Lyman Lansing Unavailable Beatriz TO MD, Lyman Lansing Unavailable [phone] David Gorman MD Unavailable [phone] Blayne Sepulveda MD Unavailable Gerson Forrester DO Unavailable [phone] Idris Sanchez MD Primary Care Provi simba Teddy Hull MD Unavailable [phone] No, Physician Primary Care Provider Encounter Details Date Type Department Care Team (Late st Contact Info) Description 08/30/2023 Conference of Physicians/Providers [facility] [address] [facility] [address] [place] [address] Matteo Brooks MD [address] [facility] [address] [place] [address] Social History Tobacco Use Types Packs/Day Years [...] often do you attend chur ch or rastafari services? Never 08/30/2023 Do you belong to any clubs o r organizations such as jainism groups, unions, fraternal or athletic groups, or [...] a skilled nursing (including now)? No 08/30/2023 Personal Safety Answer Date Recorded Have you ever been in or are you currently in a harmful physical or emotional relationship or is someone making you feel afraid or unsafe? 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 [address] [place] [address] RECTAL EXAM UNDER ANESTHESIA WITH EXCISION ANAL [...] COVID: Suspected 07/28/2024 07/28/2024 07/29/2024 12:32 AM PSYCHIATRY PHYSICIAN RSV, droplet 07/28/2024 07/28/2024 08/04/2024 3:05 AM CDT Meningitis, bacterial, dropl et Comment:Per Dr Daigle, patient may be removed from isolation 08/24/2024 08/24/2024 08/28/2024 11:49 AM CDT documented as of this encounter Care Teams Hearing Dog Trainer Relationship Specialty Start Date End Date Josh Parham MD PCP - General Internal Medicine 06/12/21 05/17/24 Idris Sanchez MD [address] [facility] [address] [place] [address] PCP - General Family Practice 05/18/24 09/23/24 No, Physician PCP - General 09/24/24 David Gorman MD Radiation Oncologist Radiation Oncology 03/25/23 Matteo Brooks MD [address] [facility], [address] [address] Medical Oncologist/Replenishment Specialist Medical Oncology 03/31/23 Gerson Keith MD [address] [facility], [address] [address] Consulting Physician Nephrology 05/07/23 Cassie Márquez MD [address] [facility] [place] [place] [address] Consulting Physician Family Medicine 06/25/23 Seth Henderson IV, MD [address] [place] [address] Consulting Physician General Surgery 10/21/23 Seth Henderson IV, MD [address] [place] [address] Consulting Physician General Surgery 10/21/23 David Gorman MD [address] [place] [address] Radiation Oncologist Radiation Oncology 10/21/23 Blayne Sepulveda MD [address] [place] [address] Consulting Physician General Surgery 03/10/24 Gerson Forrester DO [address] [place] [address] [phone] Consulting Physician General Surgery 03/14/24 Teddy Hull MD [address] [address] Consulting Physician Cardiology 09/22/24 documented as of this encounter
--- OUTSIDE RECORDS SUMMARY | 2024-09-27 21:16 | XMS_ITS ---
Author Organization [facility] Address [address] [place] [address] Care Team Providers Care Steel Melter Name Role Phone Care, 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 Problem Noted Date Diagnosed Date Acute encephalopathy [...] 03/09/2024 Assessment & Plan (03/30/2024 2:49 PM VICE PRESIDENT DIGITAL STRATEGIST): Status post laparoscopic appendectomy in February,. He still has some pain in the RLQ, but his abdominal examination is otherwise normal. Surgical scars appear to be healing well. Neck pain 01/25/2024 Assessment & Plan (03/30/2024 2:52 PM VICE PRESIDENT DIGITAL STRATEGIST): Radha reports that he has had an [...] 01/21/2024 Assessment & Plan (03/30/2024 2:50 PM VICE PRESIDENT DIGITAL STRATEGIST): Reports that the infection came from the [...] up Assessment & Plan (03/30/2024 2:50 PM VICE PRESIDENT DIGITAL STRATEGIST): Continue to follow with oncologist. He is [...] vitamin Assessment & Plan (03/30/2024 2:48 PM VICE PRESIDENT DIGITAL STRATEGIST): He continues to go to hemodialysis on [...] required. Assessment & Plan (06/28/2022 4:05 PM VICE PRESIDENT DIGITAL STRATEGIST): Noted on CT abdomen/pelvis from 06/12/2021. He has no current evidence of having peripheral arterial disease. Smoking cessation is advised. No further work-up is required. Hypercoagulable state 06/08/2021 Assessment & Plan (06/08/2021 1:24 PM VICE PRESIDENT DIGITAL STRATEGIST): Patient reports being told during his recent hospitalization that his blood was thick. CBC, prothrombin time, PTT are ordered today. Need for pneumocystis prophylaxis 05/14/2020 Assessment & Plan (09/20/2024 7:37 AM CDT): - continue bactrim Assessment & Plan (09/19/2024 4:14 PM CDT): - continue bactrim Assessment & Plan (06/08/2021 1:19 PM VICE PRESIDENT DIGITAL STRATEGIST): Continue to take oral Bactrim. Assessment & Plan (05/29/2021 2:58 PM VICE PRESIDENT DIGITAL STRATEGIST): Continue to take Bactrim. Assessment & Plan (10/25/2020 2:34 PM CDT): CD4 count continues to be well below 200. He must continue to take Bactrim daily. New prescription is sent to his pharmacy today. Assessment & Plan (06/16/2020 3:24 PM VICE PRESIDENT DIGITAL STRATEGIST): CD4 count is extremely low. He must continue to take Bactrim as prescribed. Assessment & Plan (05/14/2020 3:04 PM VICE PRESIDENT DIGITAL STRATEGIST): Stay on Bactrim as ordered. Anxiety 01/11/2020 [...] 01/11/2020 Assessment & Plan (03/30/2024 2:51 PM VICE PRESIDENT DIGITAL STRATEGIST): Smoking cessation has been encouraged at prior visits. Assessment & Plan (10/09/2023 3:57 PM CDT): Complete smoking cessation is advised. Assessment & Plan (06/28/2022 4:13 PM VICE PRESIDENT DIGITAL STRATEGIST): Complete cessation of all smoking is encouraged. I have advised him that if he is going to use marijuana, he should try to switch to edible products which are not harmful to the lungs. Assessment & Plan (06/16/2020 3:23 PM VICE PRESIDENT DIGITAL STRATEGIST): Patient reports today that he has not [...] counseling. Assessment & Plan (05/29/2021 2:56 PM VICE PRESIDENT DIGITAL STRATEGIST): Chronic condition for this patient. Not discussed at today's visit. He may take Melatonin as needed. Assessment & Plan (06/16/2020 3:20 PM VICE PRESIDENT DIGITAL STRATEGIST): Chronic condition for this patient. He takes no prescription medication for this condition. He may take iqfl-cau-fwfexog Melatonin as needed. Overweight(278.02) 10/12/2016 Overview (03/11/2017): IMO Update 02/21/2017 Exact BMI is discussed. I encouraged him to stop smoking marijuana at a prior visit. Medical dangers of obesity are discussed. But overall, I am much more concerned that he continue to avoid smoking cigarettes. Assessment & Plan (06/28/2022 4:11 PM VICE PRESIDENT DIGITAL STRATEGIST): See exact BMI above. He has lost weight recently. He should focus on maintaining a healthy diet to avoid malnutrition. Assessment & Plan (06/08/2021 1:21 PM VICE PRESIDENT DIGITAL STRATEGIST): See exact BMI above. He has gained weight recently, and due to recent long hospitalization, I have encouraged him to continue to try to eat well and avoid malnutrition. Assessment & Plan (05/29/2021 2:54 PM VICE PRESIDENT DIGITAL STRATEGIST): Recent weight loss of 10 pounds is [...] time. Assessment & Plan (06/16/2020 3:17 PM VICE PRESIDENT DIGITAL STRATEGIST): Exact BMI is discussed. He remains slightly [...] saw urologist, Dr. Salas, and was given Scaled Agile. No current complaints of urinary outlet syndrome. Assessment & Plan (05/29/2021 2:55 PM VICE PRESIDENT DIGITAL STRATEGIST): Noted on recent renal ultrasound. Reports that he recently saw urologist, Dr. Salas, and was given Scaled Agile. No current complaints of urinary outlet syndrome. Assessment & Plan (06/16/2020 3:19 PM VICE PRESIDENT DIGITAL STRATEGIST): Noted on renal ultrasound done in July,. Reports that he saw urologist, Dr. Salas, in past and was given Scaled Agile. No current complaints of urinary outlet symptoms. Assessment & Plan (01/11/2020 6:00 PM CDT): Noted on a prior renal ultrasound. He has seen urologist, Dr. Salas, in past and was given Scaled Agile, per his report. No current complaints of urinary outlet syndrome. Poor dentition 08/05/2016 Overview (12/10/2016): He knows that he should see a dentist and have multiple teeth pulled. He cannot afford to see a dentist at this time. Daily flossing has been advised at prior visits as he also has evidence of gingivitis. Assessment & Plan (06/28/2022 4:13 PM VICE PRESIDENT DIGITAL STRATEGIST): He knows that he should see a dentist and have multiple teeth pulled. He cannot afford to see a dentist at this time. Daily flossing has been advised at prior visits as he also has evidence of gingivitis. Assessment & Plan (05/29/2021 2:54 PM VICE PRESIDENT DIGITAL STRATEGIST): He knows that he should see a dentist and have multiple teeth pulled. Assessment & Plan (06/16/2020 3:16 PM VICE PRESIDENT DIGITAL STRATEGIST): He knows that he should see a [...] however. Assessment & Plan (06/28/2022 4:17 PM VICE PRESIDENT DIGITAL STRATEGIST): He must never receive another TB skin test. Assessment & Plan (05/29/2021 2:52 PM VICE PRESIDENT DIGITAL STRATEGIST): He must never receive another TB skin test. Assessment & Plan (03/03/2021 3:59 PM CDT): He must never receive another TB skin test. He has no signs of active TB presently such as cough, hemoptysis or unintentional weight loss. If he ever has a question of active TB in the future, he would require a chest x-ray. Assessment & Plan (06/16/2020 3:16 PM VICE PRESIDENT DIGITAL STRATEGIST): He must never receive another TB skin [...] normal. Assessment & Plan (06/28/2022 4:10 PM VICE PRESIDENT DIGITAL STRATEGIST): Most recent lipid panel from 06/06/21 showed elevated LDL of 145. He is currently on no medication to lower his cholesterol level. Repeat fasting lipid panel is ordered today. Assessment & Plan (06/08/2021 1:21 PM VICE PRESIDENT DIGITAL STRATEGIST): Noted on prior blood work. Most recent lipid panel done on 06/14/20 showed normal fractions. Repeat fasting lipid panel is ordered today. Assessment & Plan (05/29/2021 2:50 PM VICE PRESIDENT DIGITAL STRATEGIST): Most recent lipid panel done on 06/14/20 showed normal fractions. Assessment & Plan (06/16/2020 3:12 PM VICE PRESIDENT DIGITAL STRATEGIST): Noted with prior blood draws. Most recent [...] negative. Assessment & Plan (05/29/2021 2:53 PM VICE PRESIDENT DIGITAL STRATEGIST): These were noted on his external rectal [...] negative. Assessment & Plan (06/16/2020 3:14 PM VICE PRESIDENT DIGITAL STRATEGIST): These were noted on his external rectal [...] 09/10/2017 Assessment & Plan (06/28/2022 4:07 PM VICE PRESIDENT DIGITAL STRATEGIST): Most recent serum creatinine I can see [...] foot. Assessment & Plan (06/08/2021 1:18 PM VICE PRESIDENT DIGITAL STRATEGIST): Most recent serum creatinine was 1.46 with [...] today. Assessment & Plan (05/29/2021 2:51 PM VICE PRESIDENT DIGITAL STRATEGIST): Most recent serum creatinine was 1.46 with [...] NSAIDs. Assessment & Plan (06/16/2020 3:06 PM VICE PRESIDENT DIGITAL STRATEGIST): Most recent serum creatinine from 05/14/20 was [...] deteriorated, he will require referral to a inspector repairer sandstone. He already knows to push po intake [...] Chronic hepatitis C 08/09/2014 Overview (07/03/2019): 04/25/2019 OV, Dr. Dione Parham note 08/09/14. [...] September. Assessment & Plan (06/08/2021 1:28 PM VICE PRESIDENT DIGITAL STRATEGIST): Patient has desired no treatment during past [...] visit. Assessment & Plan (06/16/2020 3:10 PM VICE PRESIDENT DIGITAL STRATEGIST): Patient has desired no treatment at prior [...] hold Assessment & Plan (03/30/2024 2:49 PM VICE PRESIDENT DIGITAL STRATEGIST): BP is presently well-controlled. Assessment & Plan (10/09/2023 4:08 PM CDT): BP is very poorly controlled presently. Increase dosage of Clonidine from twice daily to three times daily. Continue to take Carvedilol, Doxazosin, Hydralazine, Imdur and Losartan. He will see his inspector repairer sandstone next week to discuss further changes in his blood pressure medications. I have asked him or Radha to e-mail me through My Chart in 1 week with some home blood pressure readings. Assessment & Plan (06/28/2022 4:08 PM VICE PRESIDENT DIGITAL STRATEGIST): Continue to take Norvasc. BP was marginally controlled at today's visit. Assessment & Plan (06/08/2021 1:19 PM VICE PRESIDENT DIGITAL STRATEGIST): Continue to take Norvasc. BP was well-controlled today. Assessment & Plan (05/29/2021 2:59 PM VICE PRESIDENT DIGITAL STRATEGIST): Continue to take Norvasc. He reports that [...] applauded. Assessment & Plan (06/16/2020 3:24 PM VICE PRESIDENT DIGITAL STRATEGIST): Very well-controlled. Continue to take Norvasc. Successful [...] duonebs Assessment & Plan (03/30/2024 2:55 PM VICE PRESIDENT DIGITAL STRATEGIST): Continue to wear supplemental oxygen. Present oxygen [...] advised. Assessment & Plan (06/28/2022 4:08 PM VICE PRESIDENT DIGITAL STRATEGIST): Continue to use supplemental oxygen. Continue to use either Albuterol nebulized solution or Albuterol HFA MDI as needed. Complete smoking cessation is advised. Assessment & Plan (06/08/2021 1:18 PM VICE PRESIDENT DIGITAL STRATEGIST): He reported at his last visit that he was diagnosed with COPD exacerbation in addition to Covid pneumonia during his last hospitalization. His only current inhaled medication is either Albuterol HFA MDI or Albuterol nebulized solution which he uses as needed. Assessment & Plan (05/29/2021 2:49 PM VICE PRESIDENT DIGITAL STRATEGIST): Recent admission to hospital for COPD exacerbation. [...] list. Assessment & Plan (06/16/2020 3:22 PM VICE PRESIDENT DIGITAL STRATEGIST): He reports that he was diagnosed as [...] JESUS Assessment & Plan (03/30/2024 2:46 PM VICE PRESIDENT DIGITAL STRATEGIST): Continue taking Rukobia, Tivicay, and Prezcobix. He will continue to follow with ID physician at [place]. As long as his CD4 count is above 200, he will not require prophylactic medication for PCP pneumonia. Assessment & Plan (10/09/2023 3:51 PM CDT): He should be taking Rukobia, Tivicay and Prezcobix. But he needs a prescription for Prezcobix, which is sent to his pharmacy today. He will see ID physician at [facility] later this month, and he will take over writing these prescriptions. Results of recent HIV viral load and CD4 count from August, are noted. He still requires taking Bactrim to prevent PCP infection due to low CD4 count. Assessment & Plan (06/28/2022 4:04 PM VICE PRESIDENT DIGITAL STRATEGIST): He is presently taking Rukobia, Tivicay and Prezcobix. But it is not clear when he has seen the infectious disease specialist at [facility] last. I have recently been refilling his HIV medications. Due to the resistance pattern, I want him to be following with ID. Radha will call the ID physician at [facility] to get a quick appointment. HIV blood work is re-ordered today. Due to his low CD4 count, he must continue to take Bactrim for prophylaxis of PCP pneumonia. Assessment & Plan (06/08/2021 1:13 PM VICE PRESIDENT DIGITAL STRATEGIST): Due to previous resistance to Genvoya, he continues to take Prezcobix, BID Tivicay, and Epivir as started in April,. Most recent HIV viral load from February, showed that he has become resistant to this regimen. Referral to infectious disease specialists at [facility] has been made, but apparently, they do not accept his insurance. Referral to [facility] will be generated after the results of [...] pneumonia. Assessment & Plan (05/29/2021 2:57 PM VICE PRESIDENT DIGITAL STRATEGIST): Due to resistance to Genvoya, he continues on Prezcobix, BID Tivicay, and Epivir as started in April,. Repeat HIV viral load from February, showed that he has become resistant to this regimen. Urgent referral to infectious disease at [facility] is made today. I have stressed to [...] today. Assessment & Plan (06/16/2020 2:59 PM VICE PRESIDENT DIGITAL STRATEGIST): He has become resistant to Genvoya. Continue [...] discussed. Assessment & Plan (05/14/2020 3:01 PM VICE PRESIDENT DIGITAL STRATEGIST): Stay off of Genvoya to which he [...] resistance test that he needs [id number] (which is HIV-1 PhenoSense GT Plus Integrase, and this test is not loaded into our electronic medical record and cannot be ordered. So I have ordered the HIV-1 PhenoSense GT test (#[id number]) as that is the closest one to it. I will have someone from my office call to [facility] to see if they can change this [...] normal. Assessment & Plan (05/29/2021 2:58 PM VICE PRESIDENT DIGITAL STRATEGIST): Patient has desired no treatment during past [...] needed. Assessment & Plan (03/30/2024 2:53 PM VICE PRESIDENT DIGITAL STRATEGIST): Patient requests that we change his triamcinolone ointment to cream. New prescription for cream is sent to pharmacy. Assessment & Plan (06/28/2022 4:14 PM VICE PRESIDENT DIGITAL STRATEGIST): Patient has a scaly rash at times -- not noted today. He uses Kenalog ointment as needed to treat the rash. Assessment & Plan (06/16/2020 3:21 PM VICE PRESIDENT DIGITAL STRATEGIST): Patient has a scaly rash at times -- not noted today. He uses Kenalog ointment as needed. Assessment & Plan (05/14/2020 3:03 PM VICE PRESIDENT DIGITAL STRATEGIST): Patient has scaly rash at times. Prescription for Kenalog ointment is given for patient to use as needed. HIV (human immunodeficiency virus infection) Overview (10/06/2023): 04/25/2019 OVDr. Parham Last Assessment & Plan: Due to previous resistance to Genvoya, he continues to take Prezcobix, BID Tivicay, and Epivir as started in April,. Most recent HIV viral load from February, showed that he has become resistant to this regimen. Referral to infectious disease specialists at [facility] has been made, but apparently, they do [...] continue home HIV meds - ID following Current Treatment and Therapy Plans No current plan information found. Past Treatment and Therapy Plans No past plan information found. Lifetime Dose Tracking * Chemical Lifetime Dose Automatic Entry Manual Entr y Dose Length Product 1,170 mGy-cm 1,170 mGy-cm 0 mGy-cm Resolved Problems Problem Noted Date Diagnosed Date Resolved Date Falls 08/29/2023 03/30/2024 Hyperkalemia 08/29/2023 10/09/2023 Syncope 08/29/2023 10/09/2023 Urinary retention 08/29/2023 10/07/2023 Pain in shoulder 06/24/2023 10/09/2023 Right foot pain 06/28/2022 10/09/2023 Assessment & Plan (06/28/2022 4:11 PM VICE PRESIDENT DIGITAL STRATEGIST): And swelling over the dorsum of the [...] 06/28/2022 Assessment & Plan (06/28/2022 4:18 PM VICE PRESIDENT DIGITAL STRATEGIST): Consider ordering a screening lung CT scan in the future if his medical problems stabilize. Smoking cessation is advised. Need for vaccination 06/28/2022 024 Assessment & Plan (06/28/2022 4:19 PM VICE PRESIDENT DIGITAL STRATEGIST): Covid booster shot is given today. Need for vaccination against Streptococcus pneumoniae 06/28/2022 10/09/2023 Assessment & Plan (06/28/2022 4:15 PM VICE PRESIDENT DIGITAL STRATEGIST): PCV20 vaccination is given today. Peripheral edema 06/08/2021 10/09/2023 Assessment & Plan (06/28/2022 4:12 PM VICE PRESIDENT DIGITAL STRATEGIST): Continue to take Lasix. Continue to follow a low-salt diet. CMP is ordered today. Assessment & Plan (06/08/2021 1:23 PM VICE PRESIDENT DIGITAL STRATEGIST): Now on Lasix as started by hospital [...] 06/24/2022 Assessment & Plan (06/08/2021 1:29 PM VICE PRESIDENT DIGITAL STRATEGIST): It does not appear infected, but it has remained open now for some weeks. I have advised him to apply aloe vera gel to the wound to promote healing. Repeat examination of the wound at a future visit. Pneumonia due to COVID-19 virus 05/29/2021 06/24/2022 Assessment & Plan (06/08/2021 1:25 PM VICE PRESIDENT DIGITAL STRATEGIST): Recent long hospitalization at [facility] in [place], [place]. I have no records from said hospitalization. He continues to use home oxygen. He appears mildly dyspneic at rest, though his lung examination is presently normal. Pulse oximetry on portable oxygen was acceptable today. Consider referral to information security specialist at a future visit. Home health referral [...] safely. Assessment & Plan (05/29/2021 2:48 PM VICE PRESIDENT DIGITAL STRATEGIST): Recent long hospitalization at [facility] in [place], [place]. He is now on nasal cannula [...] 10/09/2023 Assessment & Plan (06/28/2022 4:17 PM VICE PRESIDENT DIGITAL STRATEGIST): Patient elects to defer any screening for [...] 10/09/2023 Assessment & Plan (06/28/2022 4:14 PM VICE PRESIDENT DIGITAL STRATEGIST): PSA blood test is ordered today. Assessment [...] 10/09/2023 Assessment & Plan (06/28/2022 4:16 PM VICE PRESIDENT DIGITAL STRATEGIST): CMP is ordered today. Assessment & Plan (06/08/2021 1:29 PM VICE PRESIDENT DIGITAL STRATEGIST): CMP is ordered today. Assessment & Plan (08/14/2020 2:17 PM CDT): CMP is ordered today. Assessment & Plan (06/16/2020 3:25 PM VICE PRESIDENT DIGITAL STRATEGIST): CMP is ordered today. Assessment & Plan (05/14/2020 3:04 PM VICE PRESIDENT DIGITAL STRATEGIST): CMP is ordered today. Assessment & Plan (01/11/2020 6:09 PM CDT): CMP is ordered today. Screening examination for ST D (sexually transmitted disease) 01/11/2020 10/09/2023 Assessment & Plan (06/28/2022 4:15 PM VICE PRESIDENT DIGITAL STRATEGIST): RPR and urine for GC/Chlamydia are ordered [...]
--- OUTSIDE RECORDS SUMMARY | 2024-09-27 21:16 | XMS_ITS | Encounter Summary ---
Author Organization [facility] Address [address] [place] [address] Care Team Providers Care Rabbit Fancier Name Role Phone Care, [facility] Unavailable Josh Parham MD Unavailable [phone] Isabela Zacarias RN Unavailable [phone] Poly Rebollar-[facility] Primary Care Provider Unavailable Reason for Visit * Reason Onset Date Comments Transitional Care 09/26/2024 Encounter Details Date Type Department Care Team (Late st Contact Info) Description 09/26/2024 Transitional Care 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 Answer Date of Assessment Author No 08/29/2024 12:00 AM ANNIT Randolph Cunningham RN * Is person blind or have serious difficulty seeing? Answer Date of Assessment Author No 08/29/2024 12:00 AM ANNIT Randolph Cunningham RN * Does person have serious difficulty walking/climbing stairs? Answer Date of Assessment Author Yes 08/29/2024 12:00 AM Randolph Kirby RN * Does person have difficulty dressing/bathing? Answer Date of Assessment Author Yes 08/29/2024 12:00 AM Randolph Kirby RN * Does person have difficulty doing errands alone? Answer Date of Assessment Author Yes 08/29/2024 12:00 AM Randolph Kirby RN documented as of this encounter Mental Status * Does person have difficulty concentrating/remembering/making decisions? Answer Entry Date Author Yes 08/29/2024 12:00 AM Randolph Kirby RN documented in this encounter Miscellaneous Notes * Telephone Encounter - Isabela Zacarias RN - 09/26/2024 1:15 PM CDT Readmission Risk Score 18* at 1:15 PM 09/26/2024. 1. Please see Meds & Orders section for specific details or concern listed below: No concerns at this time 2. Orders/concerns: CM spoke with patient to follow up after recent hospital discharge. Patient admitted with AMS. Patient states she is doing well and understands her discharge instructions. PHQ2 was not completed at this time. Patient ended call before assessment was completed. Patient had medication changes. Patient ended call before medication list could be reviewed. Patient states that he has a hospital follow up appointment, but he does not know when it is. Patient's girlfriend called and left voicemail requesting call back. CM spoke with Radha, patient's girlfriend. She states that patient no longer sees Dr Parham or Dr Sanchez and that his new PCP isPoly Rebollar NP. CM updated Epic. She states that patient just had a hospital follow up as a virtual visit today. ---------Encounter Note This encounter was a(n) Active engagement with the patient. Patient is eligible for Medicare Advantage medically tailored meals. Post Discharge Outreach from Inpatient / Observation Transition of Care Assessment CHINEDU-General Do you understand your discharge instructions (if no, obtain D/C instructions and if possible walk through the instructions w/patient: Yes Did you receive new medications, or were changes made to existing medications (complete Med Rec): Yes If yes, do you have the medications ? (If no, assess barriers and assist patient in obtaining medications): Yes Were you ordered durable Medical equipment (crutches, walker, etc.): No Do you have follow up appointments scheduled as recommended following your discharge (if no, discuss barriers with the patient and provide resources and/or referrals for the patients): Yes Do you need help with (ADL's, transportation etc.): No PHQ Assessment Patient Health Questionnaire-9 Score: 10 (10/07/2023 10:12 AM) Patient Health Questionnaire-2 Score: 0 (03/30/2024 1:21 PM) Med Reconciliation Discharge Medication list was not reviewed and compared with Current Medications. Current Medications List Medications[1] Isabela Zacarias RN 09/26/2024 1:15 PM [1] Current Outpatient Medications Medication Sig acetaminophen (Tylenol) 500 MG tablet Take 2 (two) tablets by mouth 3 times daily Maximum allowableAcetaminophen amount = 4 Grams (4000 mg) / 24 hours. albuterol (Proventil;Ventolin) (2.5 MG/3ML) 0.083% nebulizer solution INHALE THE CONTENTS OF 1 VIALVIA NEBULIZER EVERY 6 HOURS NEEDED FOR WHEEZING OR FOR SHORTNESS OF BREATH albuterol HFA (Proventil; Ventolin; Proair) 108 (90 Base) MCG/ACT inhaler Inhale 2 (two) puffs by mouth every 6 hours as needed amLODIPine (Norvasc) 10 MG tablet Take 1 (one) tablet by mouth once daily budesonide-formoterol (Symbicort) 160-4.5 MCG/ACT inhaler Inhale 2 (two) puffs by mouth 2 times daily Reasons: Chronic Obstructive Lung Disease calcitriol (Rocaltrol) 0.5 MCG capsule Take 1 (one) capsule by mouth once daily calcium carbonate (Tums) 500 MG chew tablet Take 1 (one) tablet by mouth once daily as needed for Heartburn carvedilol (Coreg) 25 MG tablet Take 1 (one) tablet by mouth 2 times daily with morning and eveningmeal darunavir-cobicistat (Prezcobix) 800-150 MG tablet Take 1 (one) tablet by mouth once daily Reasons:HIV Disease entecavir (Baraclude) 0.5 MG tablet Take 1 (one) tablet by mouth every 7 days folic acid (Folvite) 1 MG tablet Take 1 (one) tablet by mouth once daily fostemsavir ER 12hr (Rukobia) 600 MG tablet Take 1 (one) tablet by mouth 2 times daily Reasons: HIVDisease hydrALAZINE (Apresoline) 25 MG tablet Take 1 (one) tablet by mouth every 8 hours hydrocortisone (Hytone) 2.5 % cream Apply to affected area 2 times daily hydrOXYzine HCl (Atarax) 25 MG tablet Take 1 (one) tablet by mouth every 6 hours as needed for Itching ketoconazole (Nizoral) 2 % cream Apply to affected area 2 times daily levETIRAcetam (Keppra) 250 MG tablet Take 1 (one) tablet by mouth every Wednesday, Wednesday & Wednesday for 60 days levETIRAcetam (Keppra) 500 MG tablet Take 1 (one) tablet by mouth once daily lidocaine (Lidoderm) 5 % patch Apply 1 (one) patch to skin once daily Apply patch to most painful area and remove after 12 hours. May reapply a new patch 12 hours later. ondansetron, disintegrating, (Zofran ODT) 4 MG tablet Take 1 (one) tablet by mouth every 8 hours asneeded oxyCODONE, immediate release, (Roxicodone) 5 MG tablet Take 1 (one) tablet by mouth every 8 hours as needed for Pain Oxygen Oxygen with portability - continuous at 2L/min at rest and 3 L/min with activity via nasal cannula - Estimate length of need (number of months): Lifetime renal vitamin (Dialyvite) tablet Take 1 (one) tablet by mouth once daily sertraline (Zoloft) 50 MG tablet Take 1 (one) tablet by mouth once daily sodium chloride (V-R NASAL SPRAY SALINE) 0.65 % nasal spray SPRAY 1 SPRAY INTO INTO EACH NOSTRIL ASNEEDED FOR DRY NOSE sulfamethoxazole-trimethoprim (Bactrim; Septra) 400-80 MG tablet Take 1 (one) tablet by mouth everyWednesday, Wednesday & Wednesday thiamine (Vitamin B-1) 100 MG tablet Take 1 (one) tablet by mouth once daily Tivicay 50 MG tablet TAKE 1 TABLET(50 MG) BY MOUTH TWICE DAILY traZODone (Desyrel) 50 MG tablet Take 0.5 (one-half) tablet by mouth nightly as needed for Insomnia triamcinolone acetonide (Kenalog) 0.1 % cream APPLY TO AFFECTED AREAS TWICE DAILY FOR PSORIASIS documented in this encounter Plan of Treatment Upcoming Encounters Date Type Department Care Team (Late st Contact Info) Description 10/24/2024 3:00 PM CDT Office Visit [facility] - Dermatology [address] [place] [phone] Stalin Hand MD [address] [place] [address] [place] [address] 12/28/2024 1:00 PM CDT Office Visit [facility] - Dermatology [address] [place] [address] [phone] Aleksandr Ngo MD [address] [place] [address] DEPT OF DERMATOLOGY [address] [place] [address] [phone] documented as of this encounter Visit Diagnoses Not on filedocumented in this encounter Care Teams Rabbit Fancier Relationship Specialty Start Date End Date Josh Parham MD [address] [facility] [address] [place] [phone] PCP - Attributed-[facility] 08/22/24 Poly Rebollar, EMMA-RADIOLOGICAL ENGINEER [address] [facility] [address] [place] [address] PCP - General Internal Medicine 09/26/24 Care, [facility] Care Management 12/23/22 Isabela Zacarias, RN [address] [address] Air Quality ConsultantClimatologist 09/22/24 09/26/24 documented as of this encounter
[2024-09-27 21:18] LABS: Basophils Percent Auto 0.7 % (0.2-1.2); Eosinophils Absolute Auto 0.2 K/mm3 (0-0.3); Eosinophils Percent Auto 2.7 % (0-4.4); Hematocrit 24.7 % (42.0-52.0); Hemoglobin 7.6 g/dL (14.0-18.0); Immature Granulocyte Absolute 0.02 K/mm3 (0.00-0.031); Immature Granulocyte Percent A 0.3 % (0-0.5); Lymphocytes Percent Auto 16.6 % (18.3-44.2); Mean Corpuscular HGB Conc 30.8 g/dl (32-36); Mean Corpuscular Hemoglobin 31.5 pg (26-34); Mean Corpuscular Volume 102.5 fl (80-100); Monocytes Absolute Auto 0.7 K/mm3 (0.1-0.6); Monocytes Percent Auto 12.1 % (2.6-8.5); Neutrophils Absolute Auto 4.1 K/mm3 (1.3-6.7); Neutrophils Percent Auto 67.6 % (45.5-73.1); Platelet Count Result 107 k/mm3 (150-375); Red Blood Count 2.41 M/mm3 (4.6-6.20)
[2024-09-27 21:24] LABS: Alanine Aminotransferase 71 U/L (6-50); Albumin Level 3.5 g/dL (3.5-5.1); Alkaline Phosphatase 69 U/L (38-126); Anion Gap 13 mmol/L (4-12); Aspartate Amino Transferase 67 U/L (17-59); Bilirubin,Total 0.5 mg/dL (0.2-1.3); Blood Urea Nitrogen 53 mg/dL (9-20); Calcium 8.4 mg/dL (8.4-10.2); Carbon Dioxide 22 mmol/L (22-30); Chloride 101 mmol/L (98-107); Estimated CRCL calculation 9 ml/min; Estimated Glomerular Filt Rate 6; Glucose 97 mg/dL (65-110); Magnesium 2.4 mg/dL (1.6-2.3); Potassium 5.9 mmol/L (3.4-5.0); Sodium 136 mmol/L (137-145)
[2024-09-27 21:33] LABS: NT Pro B Type Natriuretic Pept > 30000 pg/mL (19.9-100)
[2024-09-27 21:41] VITALS: O2SAT 98
[2024-09-27] MEDS: FUROSEMIDE INJ 40 MG/4 ML VIAL IV PUSH (22:22)
[2024-09-27 22:30] VITALS: BP 146/89; PULSE 70; RESP 14; O2SAT 99
[2024-09-27] MEDS: oxyCODONE HCL (*CRX) 5 MG TAB IR PO (22:51)
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
[2024-09-28] VITALS (22 sets, daily range): BP systolic 134–202; BP diastolic 79–118; PULSE 71–80; RESP 13–18; TEMP 36.8–37; O2SAT 92–97; BMI 23.6
[2024-09-28] MEDS: SODIUM ZIRCONIUM CYCLOSILICATE 10 GM POWD.PACK PO (00:02)
--- NOTE | 2024-09-28 01:07 | ADMGEN ---
This patient, Thompson Salcedo, was admitted to [facility] Room 303-01. Patient/family oriented to hospital policies and general routines including ID bracelet, bed and alarms, visiting hours, pain management, procedures, bathroom and other care routines, personal items, smoking policy, room service/diet, and visiting hours. Information on how to activate the Rapid Response Team has been discussed. Patient/Family are encouraged to report perceived risks to care and to ask questions if they do not understand what they are told or what they should do.
--- NOTE | 2024-09-28 01:49 | PC.NURSE ---
patient is ax0x4 and completed admission questions himself, however he is unsure what medications he takes, and told me to call Radha, as she will know. Call placed to Radha at 01:45 to go over patient's medications, but she did not answer
[2024-09-28 02:53] LABS: MRSA (PCR) NOT DETECTED (NOT DETECTE)
[2024-09-28] MEDS: HYDROcodone/acetaminophen (*CRX) 5-325 MG TABLET 1 TAB PO (04:42)
--- NOTE | 2024-09-28 05:52 | PC.NURSE ---
pt told this RN multiple times that he does not like the placement of his IV and if he had gauze he would've already taken it out. Patient reminded that he is a very hard stick, and that we can consult IV therapy for a new I, when they arrive for the day. IV therapy called and VM left. Pt called nurse into room again to say he is going to pull his iv out. Patient reminded that it is important that we have IV access and to please not pull his IV out until we can establish a new IV. patient states take this IV out now
--- NOTE | 2024-09-28 06:12 | PC.NURSE ---
call placed again to Radha regarding patient's medication list, voicemail left @ 06:12
[2024-09-28 06:17] LABS: Basophils Percent Auto 0.4 % (0.2-1.2); Eosinophils Absolute Auto 0.2 K/mm3 (0-0.3); Eosinophils Percent Auto 3.4 % (0-4.4); Hematocrit 24.3 % (42.0-52.0); Hemoglobin 7.6 g/dL (14.0-18.0); Immature Granulocyte Absolute 0.03 K/mm3 (0.00-0.031); Immature Granulocyte Percent A 0.6 % (0-0.5); Immature Platelet Fraction Pct 3.4 % (0.9-11.2); Lymphocytes Percent Auto 18.7 % (18.3-44.2); Mean Corpuscular HGB Conc 31.3 g/dl (32-36); Mean Corpuscular Hemoglobin 31.5 pg (26-34); Mean Corpuscular Volume 100.8 fl (80-100); Monocytes Absolute Auto 0.6 K/mm3 (0.1-0.6); Monocytes Percent Auto 11.4 % (2.6-8.5); Neutrophils Absolute Auto 3.5 K/mm3 (1.3-6.7); Neutrophils Percent Auto 65.5 % (45.5-73.1); Platelet Count Result 104 k/mm3 (150-375); Red Blood Count 2.41 M/mm3 (4.6-6.20); Red Cell Distribution Width 21.1 % (11.5-14.5); White Blood Count 5.4 K/mm3 (4.5-10.0)
[2024-09-28 06:24] LABS: Alanine Aminotransferase 69 U/L (6-50); Albumin Level 3.2 g/dL (3.5-5.1); Alkaline Phosphatase 64 U/L (38-126); Anion Gap 11 mmol/L (4-12); Aspartate Amino Transferase 62 U/L (17-59); Bilirubin,Total 0.5 mg/dL (0.2-1.3); Blood Urea Nitrogen 56 mg/dL (9-20); Calcium 8.1 mg/dL (8.4-10.2); Carbon Dioxide 23 mmol/L (22-30); Chloride 101 mmol/L (98-107); Estimated CRCL calculation 9 ml/min; Estimated Glomerular Filt Rate 6; Glucose 92 mg/dL (65-110); Magnesium 2.4 mg/dL (1.6-2.3); Potassium 5.9 mmol/L (3.4-5.0); Sodium 135 mmol/L (137-145)
--- NOTE | 2024-09-28 06:47 | PC.NURSE ---
attempted to reach Radha at alternate number regarding patient's medications. voicemail left @ 06:48
[2024-09-28 06:57] LABS: Hepatitis B Surface Antigen Positive (Negative)
[2024-09-28 07:12] LABS: Hepatitis B Surface Anti Res Negative
--- NOTE | 2024-09-28 07:18 | PC.NURSE ---
medication list verified with Radha BERRIOS @ 07:18
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
--- NOTE | 2024-09-28 13:21 | PM.DS ---
DS: Admitting Diagnosis Discharge Date 09/28/24 Admitting Diagnosis shortness of breath DS: Discharge Diagnosis Discharge Diagnosis (1) Acute respiratory failure with hypoxia: Code(s): J96.01 - Acute respiratory failure with hypoxia Status: Acute (2) End-stage renal disease (ESRD): Code(s): N18.6 - End stage renal disease Status: Acute (3) Volume overload: Code(s): E87.70 - Fluid overload, unspecified Status: Acute (4) Hypertension: Code(s): I10 - Essential (primary) hypertension Status: Chronic Plan 69 y/o male with history of ESRD on HD presented to ER with shortness of breath most likely 2/2 volume overload due to missing his scheduled dialysis. patient will have dialysis and further recommendation to follow. DS: Summary Hospital Course Hospital Course: 69 y/o male with history of ESRD on HD presented to ER with shortness of breath most likely 2/2 volume overload due to missing his scheduled dialysis. patient will have dialysis and further recommendation to follow. this morning patient had HD and stats he is feeling much better, his diarrhea has resolved and he wants to go home, patient is clinically stable, will discharge patient today, he will have his scheduled dialysis tomorrow. Time Spent with Patient Time attestation: Total time spent providing and/or coordinating discharge services: Exam Narrative: Patient is comfortable, NAD HEENT: eyes are clear and none icteric LUNGS:CTA HEART: RR S1S2 ABD: BS+, Soft and nontender Lower extremities: no edema SKIN: nonjaundiced Neuro: grossly intact. DS: Data Data Completed and Pending Labs on day of discharge: Labs from last 24 hours 09/28/24 09/28/24 09/28/24 05:57 05:57 01:32 WBC 5.4 RBC 2.41 L Hgb 7.6 L Hct 24.3 L MCV 100.8 H MCH 31.5 MCHC 31.3 L RDW 21.1 H Plt Count 104 L MPV 10.0 Immature Gran % (Auto) 0.6 H Neut % (Auto) 65.5 Lymph % (Auto) 18.7 Thomas % (Auto) 11.4 H Eos % (Auto) 3.4 Baso % (Auto) 0.4 Lymph # (Auto) 1.00 Thomas # (Auto) 0.6 Eos # (Auto) 0.2 Baso # (Auto) 0.0 Abs Immat Gran (auto) 0.03 Absolute Neuts (auto) 3.5 Absolute Nucleated RBC 0.000 Nucleated RBC % 0.0 % Immature Plt Fraction 3.4 Sodium 135 L Potassium 5.9 H Chloride 101 Carbon Dioxide 23 Anion Gap 11 BUN 56 H Creatinine 8.68 H Estim Creat Clear Calc 9 Estimated GFR 6 L Glucose 92 Calcium 8.1 L Phosphorus 6.0 H Magnesium 2.4 H Total Bilirubin 0.5 AST 62 H ALT 69 H Alkaline Phosphatase 64 NT-Pro-B Natriuret Pep Total Protein 7.0 Albumin 3.2 L Nasal MRSA (PCR) Not detected Hep Bs Antigen Positive Pending Hep Bs Antibody Negative 09/27/24 21:01 WBC 6.0 RBC 2.41 L Hgb 7.6 L Hct 24.7 L MCV 102.5 H MCH 31.5 MCHC 30.8 L RDW 22.0 H Plt Count 107 L MPV 10.0 Immature Gran % (Auto) 0.3 Neut % (Auto) 67.6 Lymph % (Auto) 16.6 L Thomas % (Auto) 12.1 H Eos % (Auto) 2.7 Baso % (Auto) 0.7 Lymph # (Auto) 1.00 Thomas # (Auto) 0.7 H Eos # (Auto) 0.2 Baso # (Auto) 0.0 Abs Immat Gran (auto) 0.02 Absolute Neuts (auto) 4.1 Absolute Nucleated RBC 0.000 Nucleated RBC % 0.0 % Immature Plt Fraction Sodium 136 L Potassium 5.9 H Chloride 101 Carbon Dioxide 22 Anion Gap 13 H BUN 53 H D Creatinine 8.61 H Estim Creat Clear Calc 9 Estimated GFR 6 L Glucose 97 Calcium 8.4 Phosphorus Magnesium 2.4 H Total Bilirubin 0.5 AST 67 H ALT 71 H Alkaline Phosphatase 69 NT-Pro-B Natriuret Pep > 54100 H Total Protein 8.0 Albumin 3.5 Nasal MRSA (PCR) Hep Bs Antigen Hep Bs Antibody Discharge Plan Discharge Attending physician on discharge: Katina Carrillo Consulting providers: Sheldon Ackerman Discharging Clinician: Tam Zamora Patient Disposition: Home Activity: as tolerated Diet: renal Discharge Instructions: patient to 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 Patient Instructions: Antibiotic Form Patient Language: Maltese Stand Alone Forms: General Discharge Information Follow-up/Referrals: Sheldon Ackerman MD [Physician] - [place],LAMIN Rosa [Primary Care Provider] - Discharge Medications: Continued sennosides-docusate sodium [Senexon-S] 8.6-50 mg tablet 2 tab-cap PO BID budesonide-formoterol [Symbicort] 160-4.5 mcg/actuation HFA aerosol inhaler 2 puff INHALATION BID carvedilol 25 mg tablet 25 mg PO BID hydralazine 25 mg tablet 25 mg PO Q8H hydrocortisone 2.5 % cream 1 applic TOPICAL QID PRN (Reason: itching) Patient Comments: around HD cath site for itchiness levetiracetam 500 mg tablet 500 mg PO DAILY levetiracetam 250 mg tablet 250 mg PO QMWF ketoconazole 2 % cream 1 applic TOPICAL BID Patient Comments: scrotum and buttocks thiamine HCl (vitamin B1) 100 mg capsule 100 mg PO QAM albuterol sulfate 2.5 mg /3 mL (0.083 %) solution for nebulization 2.5 mg inhalation Q6H PRN (Reason: Wheezing) trazodone 50 mg tablet 25 mg PO HS sulfamethoxazole-trimethoprim 400-80 mg tablet 1 tablet PO QMWF minoxidil 2.5 mg tablet 2.5 mg PO BID clonidine HCl 0.2 mg tablet 0.2 mg PO BID doxazosin 8 mg tablet 8 mg PO HS amlodipine 10 mg tablet 10 mg PO DAILY folic acid 1 mg tablet 1 mg PO DAILY aspirin 81 mg Tablet 81 mg PO DAILY albuterol sulfate 90 mcg/actuation HFA aerosol inhaler 2 puff INHALATION Q6H PRN (Reason: Wheezing) ondansetron 4 mg tablet,disintegrating 4 mg PO PRN PRN (Reason: Nausea And Vomiting) losartan 100 mg tablet 100 mg PO DAILY sertraline 50 mg tablet 50 mg PO DAILY entecavir 0.5 mg tablet 0.5 mg PO WEEKLY Rx Instructions: on Tuesdays Tivicay 50 mg tablet 50 mg PO BID Prezcobix 800-150 mg-mg tablet 1 tablet PO DAILY Rx Instructions: pt takes in afternoon Rukobia 600 mg tablet extended release 12 hr 600 mg PO BID Date of admission: 09/27/24 23:50 Primary Care Provider: Rui,Chantel Turcios Admitting Provider: Katina Carrillo Attending physician on admission: Katina Carrillo Condition: Improved
== END 2024-09-28 13:36 | disposition home or self-care (01) ==
LOC: ANHED 09-28 00:01 → ANH3MEDSUR 09-28 13:16
PROVIDERS: Internal Medicine Nephrology; Admitting Provider Internal Medicine; Emergency Provider Emergency Medicine; PCP Physician Assistant; Visit Provider Family Medicine
DX: J96.21 Acute and chronic respiratory failure with hypoxia (principal); E87.70 Fluid overload, unspecified; E87.5 Hyperkalemia; I12.0 Hypertensive chronic kidney disease with stage 5 chronic kidney disease or end stage renal disease; N18.6 End stage renal disease; D63.1 Anemia in chronic kidney disease; J44.0 Chronic obstructive pulmonary disease with (acute) lower respiratory infection; J20.9 Acute bronchitis, unspecified; B20 Human immunodeficiency virus [HIV] disease; Z99.2 Dependence on renal dialysis; Z99.81 Dependence on supplemental oxygen; Z87.891 Personal history of nicotine dependence; Z79.1 Long term (current) use of non-steroidal anti-inflammatories (NSAID); Z79.899 Other long term (current) drug therapy
CPT/HCPCS: 36415; 71045; 80053; 83735; 83880; 84100; 85025; 85055; 86706; 87040; 87340; 87641; 93005; 94640; 96361; 96374; 96375; 96376; 99199; 99291; A9270; G0257; G0378; J1644; J1938; J7030